=== PATIENT | male | born 1945 | race Caucasian/White ===

== ENCOUNTER 2016-08-02 07:32 | Inpatient (IN) | payer OTHER ==
[~2016-08-02] VITALS: Ht 177.8 cm; Wt 104.3 kg
[~2016-08-02 07:32] MED LIST: METOPROLOL TART50 M1 PO; WARFARIN SODIUM5 M1 PO
--- NOTE | 2016-08-02 07:43 | NUR ---
PT DILLAN FROM HOME. STATES HE BANGED HIS RIGHT LEG WHEN HE GOT OUT OF BED OPENING UP A VERICOSE EVELIO. PT IS ON COUMADIN AND PER EMS VEIN WAS GUSHING BLOOD IN A STEADY STREAM WHEN THEY GOT THERE. PRESSURE DRSG PLACED BY EMS. DRESSINGS SATURATED WITH BLOOD UPON ARRIVAL TO ED. DR MENDEZ AT BEDSIDE
--- NOTE | 2016-08-02 08:00 | NUR ---
DRESSINGS TAKEN DOWN AND VEIN APPEARS TO HAVE STOPPED BLEEDING. CLEAN DRESSING PLACED
--- NOTE | 2016-08-02 08:03 | NUR ---
LABS DRAWN BY SE[facility] BALLARD AND SENT. PT HAD A RUN OF VTACH. DR MENDEZ AWARE AND PRINT OUT IN CHART. EKG COMPLETED BY [facility] BALLRAD
--- NOTE | 2016-08-02 08:05 | NUR ---
PER DR MENDEZ, NOT A RUN OF V-TACH
--- NOTE | 2016-08-02 08:12 | NUR ---
PT BP DROPPED TO 85/65. PT LAYED FLAT AND IV FLUIDS OPENED WIDE. DR MENDEZ AWARE
[2016-08-02 08:13] LABS: ABSOLUTE BASOPHIL COUNT 0 /CUMM (0.0-0.2); ABSOLUTE EOSINOPHIL COUNT 0.1 /CUMM (0.0-0.7); ABSOLUTE GRANULOCYTE CT 2.5 /CUMM (1.4-6.5); ABSOLUTE MONOCYTE COUNT 0.8 /CUMM (0.10-0.60); BASOPHIL % 0.5 % (0.0-2.0); EOSINOPHIL % 2.7 % (0-5); GRANULOCYTE % 45.9 % (42.2-75.2); HEMATOCRIT 32.3 % (42-52); MEAN CORPUSCULAR HGB 31.6 PG (27.0-31.0); MEAN CORPUSCULAR HGB CONC 34.7 G/DL (33.0-37.0); MEAN PLATELET VOLUME 8.4 FL (7.4-10.4); PLATELET COUNT 104 /CUMM (130-400); RBC DISTRIBUTION WIDTH 13.6 % (11.5-14.5); RED BLOOD CELL CT 3.55 /CUMM (4.70-6.10); WHITE BLOOD CELL COUNT 5.4 /CUMM (4.8-10.8)
[2016-08-02 08:20] LABS: PT 36.1 SEC (9.4-12.5)
[2016-08-02] MEDS ORDERED: ASPIRIN81 M4 PO (08:23)
--- NOTE | 2016-08-02 08:23 | NUR ---
PT SON MICKI VALVERDE [phone]. PT'S SON WENT TO DO SOME ERRANDS. WILL BE RETURNING IN A FEW HOURS. CALL WITH ANYTHING PERTINENT
--- NOTE | 2016-08-02 09:01 | ED GENERAL ADULT ---
History of Present Illness General Chief Complaint: General Adult Stated Complaint: BIBA FOR BLEEDING VARICOSE VEIN Source: patient, old records, EMS Exam Limitations: no limitations Vital Signs & Intake/Output Vital Signs & Intake/Output Vital Signs Date Time Temp Pulse Resp B/P Pulse O2 O2 Flow FiO2 Ox Delivery Rate 08/02 910 96.8 86 22 90/52 98 Room Air 08/02 851 97.4 86 20 91/59 100 Nasal 2.0L Cannula 08/02 827 85/61 08/02 811 85/65 08/02 750 Nasal 2.0L Cannula 08/02 739 97.0 81 20 117/64 100 Non 10L ReBreather Allergies Coded Allergies: NO KNOWN ALLERGIES (07/21/11) Reconcile Medications Aspirin (Aspirin*) 81 MG TAB.CHEW 81 MG PO DAILY HEART HEALTH (Reported) Metoprolol Tartrate 50 MG TABLET 1 TAB PO BID HEART (Reported) Warfarin Sodium 5 MG TABLET 0.5 TAB PO 1700 BLOOD THINNER (Reported) Warfarin Sodium 5 MG TABLET 1 TAB PO 1700 BLOOD THINNER (Reported) Core Measure Meds Pre-Hospital coumadin Triage Note: PT BIBA FROM HOME. STATES HE BANGED HIS RIGHT LEG WHEN HE GOT OUT OF BED OPENING UP A VERICOSE EVELIO. PT IS ON COUMADIN AND PER EMS VEIN WAS GUSHING BLOOD IN A STEADY STREAM WHEN THEY GOT THERE. PRESSURE DRSG PLACED BY EMS. DRESSINGS SATURATED WITH BLOOD UPON ARRIVAL TO ED. DR MENDEZ AT BEDSIDE Triage Nurses Notes Reviewed? yes Onset: Just prior to arrival Duration: minute(s):, better, constant Timing: recent history Injury Environment: home Severity: severe Modifying Factors: Improves With: other (pressure). Associated Symptoms: dizziness HPI: Prior to admission patient drank his right lower leg developing bleeding from varicose vein. EMS reports likely 1-2 units of blood loss on the floor. He complains of dizziness. He denies fever chills nausea vomiting diarrhea abdominal pain chest pain shortness of breath headache dysuria rash. Past History Travel History Traveled to [place] past 21 day No Medical History Any Pertinent Medical History? see below for history Neurological: NONE Cardiovascular: AFIB, hypertension Respiratory: NONE Gastrointestinal: HEMMORHOIDS Hepatic: NONE Renal: NONE Musculoskeletal: NONE Psychiatric: NONE Endocrine: NONE Blood Disorders: NONE Cancer(s): NONE Tetanus Vaccine: 07/21/11 Surgical History Surgical History: angioplasty Psychosocial History Who do you live with Spouse What is your primary language Romanian Tobacco Use: Never used ETOH Use: occasional use Illicit Drug Use: denies illicit drug use Family History Hx Contributory? No Review of Systems Review of Systems Constitutional: Reports: see HPI, weakness. EENTM: Reports: no symptoms. Respiratory: Reports: no symptoms. Cardiovascular: Reports: no symptoms. GI: Reports: no symptoms. Genitourinary: Reports: no symptoms. Musculoskeletal: Reports: no symptoms. Skin: Reports: see HPI. Neurological/Psychological: Reports: no symptoms. Hematologic/Endocrine: Reports: no symptoms. Immunologic/Allergic: Reports: no symptoms. All Other Systems: Reviewed and Negative Physical Exam Physical Exam General Appearance: well developed/nourished, alert, awake, anxious, severe distress Head: atraumatic, normal appearance Eyes: Bilateral: normal appearance, PERRL, EOMI. Ears, Nose, Throat: normal pharynx, normal ENT inspection Neck: normal inspection, supple, full range of motion, no midline tenderness Respiratory: normal breath sounds, chest non-tender, no respiratory distress, quiet respiration, lungs clear Cardiovascular: regular rate/rhythm, normal peripheral pulses, norml femoral pulses equa Peripheral Pulses: 4+ carotid (R), 4+ carotid (L) Gastrointestinal: normal bowel sounds, soft, non-tender, no organomegaly Back: normal inspection, normal range of motion Extremities: normal capillary refill, puncture wound likely site of varicose vein disruption medial calf right lower extremity without active bleeding Neurologic/Psych: no motor/sensory deficits, awake, alert, oriented x 3, manager strategy & account II- XII nml as tested Reflexes: 2+: bicep (R), bicep (L). Skin: warm/dry Lymphatic: no anterior cervical tammi Core Measures ACS in differential dx? No CVA/TIA Diagnosis: No Severe Sepsis Present: No Septic Shock Present: No Progress Differential Diagnoses I considered the following diagnoses in my evaluation of the patient: symptomatic anemia varicose vein bleeding Plan of Care: Orders Procedure Date/time Status Regular Diet 08/02 B Active BLOOD PRODUCT PICKUP 08/02 919 Active Patient Data 08/02 856 Active OXYGEN SETUP (GEN) 08/02 848 Active Saline Lock 08/02 848 Active Admit to inpatient 08/02 848 Active Vital Signs 08/02 848 Active Activity/Ambulation 08/02 848 Active Code Status 08/02 848 Active LEUKOCYTE POOR (PACKED CELLS) 08/02 848 Active Add-on Test (ER Only) 08/02 801 Active TROPONIN LEVEL 08/02 799 Complete MAGNESIUM 08/02 799 Complete EKG 08/02 750 Active Intake & Output 08/02 749 Active PROTHROMBIN TIME 08/02 739 Complete COMPREHENSIVE METABOLIC PANEL 08/02 739 Complete CBC WITHOUT DIFFERENTIAL 08/02 739 Complete TYPE & SCREEN (NOT X-MATCH) 08/02 739 Active Laboratory Tests 08/02/16 0800: Anion Gap 5, Estimated GFR > 60, BUN/Creatinine Ratio 14.3, Glucose 143 H, Calcium 7.4 L, Magnesium 1.6, Total Bilirubin 0.8, AST 18, ALT 34, Alkaline Phosphatase 72, Troponin I 0.01, Total Protein 4.2 L, Albumin 2.0 L, Globulin 2.2, Albumin/Globulin Ratio 0.9 L, PT 36.1 H, INR 3.48 H, CBC w Diff NO MAN DIFF REQ, RBC 3.55 L, MCV 91.0, MCH 31.6 H, RDW 13.6, MPV 8.4, Gran % 45.9, Lymphocytes % 36.4, Monocytes % 14.5 H, Eosinophils % 2.7, Basophils % 0.5, Absolute Granulocytes 2.5, Absolute Lymphocytes 2.0, Absolute Monocytes 0.8 H, Absolute Eosinophils 0.1, Absolute Basophils 0, PUBS MCHC 34.7 Initial ED EKG: AFIB, LBBB Prior EKG: unchanged Rhythm Strip: atrial fibrillation Departure Departure Time of Disposition: 857 Disposition: STILL A PATIENT Condition: Stable Clinical Impression Primary Impression: Hypovolemic shock Secondary Impressions: Atrial fibrillation Qualifiers: Atrial fibrillation type: chronic Qualified Code: I48.2 - Chronic atrial fibrillation Bleeding from varicose veins of right lower extremity Symptomatic anemia Referrals: HUI BAKER,JAYLAN Salinas (PCP/Family) Departure Forms: Customer Survey General Discharge Information Admission Note Spoke With: GIANFRANCO CHAN MD Documentation of Exam: Documentation of any treatments & extenuating circumstances including Concerns Regarding Discharge (functional status, medication knowledge or non-compliance, living conditions, etc.) that warrant an admission rather than observation: Serial lab exam vascular evaluation transfusion packed red blood cells medication adjustment continuing care discharge planning Critical Care Note Critical Care Note Critical Care Time: non-applicable
--- NOTE | 2016-08-02 09:10 | NUR ---
PT ADMITTED TO ROOM 215-2
--- NOTE | 2016-08-02 09:50 | NUR ---
HOUSESTAFF AT BEDSIDE.
--- NOTE | 2016-08-02 10:16 | History & Physical ---
ZIA MENDOZA 08/02/16 1006: General Information and HPI Source of Information: patient Exam Limitations: no limitations History of Present Illness: He is 71-year-old man with past medical history of A. fib on Coumadin, hypertension, coronary artery disease status post stent placement, hemorrhoids BIBA from home. Patient states that he banged his right leg with bed when he was trying to get up resulting in opening up of varicose vein. He tried to stop bleeding but could not. He was feeling dizzy and called his son for help. Son was also not able to stop bleeding and he called 911. The son also told patient that he passed out for few minutes but patient doesn't remember. According to patient he has history of bleeding from varicose veins in past about 1-2 times but it was not as bad as it was this morning. He also reports of on and off nosebleed but it stops on its own by pressure. This morning he also had mild nosebleed. Currently patient denies any chest pain or discomfort, palpitations, breathing difficulty, nausea, vomiting, abdominal pain, any change in color of her urine or stool. He is on Coumadin for last 10 years. He checks his INR once a month. Last time it was checked 3 weeks ago and his INR was around 4. He takes Coumadin 5 mg 5 days a week and 2.5 mg 2 days a week. He sees concrete form setter, Dr. Koch 2 times in a year. Last saw him 2-3 months ago. He lives with his 2 sons. 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 He also states that he is on his feet all the day and sometimes he notices swelling of his feet. Last colonoscopy in . Only found hemorrhoids per patient. Allergies/Medications Allergies: Coded Allergies: NO KNOWN ALLERGIES (07/21/11) Home Med list Aspirin (Aspirin*) 81 MG TAB.CHEW 81 MG PO DAILY HEART HEALTH (Reported) Metoprolol Tartrate 50 MG TABLET 1 TAB PO BID HEART (Reported) Warfarin Sodium 5 MG TABLET 0.5 TAB PO 1700 BLOOD THINNER (Reported) Warfarin Sodium 5 MG TABLET 1 TAB PO 1700 BLOOD THINNER (Reported) Compliance With Home Meds: GOOD Past History Travel History Traveled to [place] past 21 day No Medical History Neurological: NONE Cardiovascular: AFIB, hypertension Respiratory: NONE Gastrointestinal: HEMMORHOIDS Hepatic: NONE Renal: NONE Musculoskeletal: NONE Psychiatric: NONE Endocrine: NONE Blood Disorders: NONE Cancer(s): NONE Tetanus Vaccine: 07/21/11 Surgical History Surgical History: cholecystectomy, angioplasty Past Family/Social History Psychosocial History Where do you live? Home Who Do You Live With? child Services at Home: None Primary Language: Icelandic Smoking Status: Never Smoked ETOH Use: denies use (8-10 beers/week), occasional use Illicit Drug Use: denies illicit drug use Functional Ability ADLs Independent: dressing, eating, toileting, bathing. Ambulation: independent IADLs Independent: shopping, housework, finances, food prep, telephone, transportation , medication admin. Employment History Employment Employed Review of Systems Review of Systems Constitutional: Reports: see HPI. Exam & Diagnostic Data Last 24 Hrs of Vital Signs/I&O Vital Signs Date Time Temp Pulse Resp B/P Pulse O2 O2 Flow FiO2 Ox Delivery Rate 08/02 0911 96.8 86 22 90/52 98 Room Air 08/02 0852 97.4 86 20 91/59 100 Nasal 2.0L Cannula 08/02 0828 85/61 08/02 0812 85/65 08/02 0751 Nasal 2.0L Cannula 08/02 0740 97.0 81 20 117/64 100 Non 10L ReBreather Intake & Output 08/02 1600 08/02 0800 08/02 0000 Intake Total 2000 Output Total Balance 2000 Intake, IV 2000 Patient 230 lb Weight Physical Exam General Appearance Alert, Oriented X3, Cooperative, No Acute Distress Skin chronic venous stasis changes bilateral lower extremities with varicose veins HEENT dry mucous membranes, conjunctival pallor Neck Supple Cardiovascular irregularly irregular Lungs Clear to Auscultation, Normal Air Movement Abdomen Normal Bowel Sounds, Soft, No Tenderness Neurological Normal Speech, Strength at 5/5 X4 Ext, Sensation Intact, Cranial Nerves 3-12 NL Extremities trace bilateral lower extremity swelling. Chronic venous stasis changes bilateral lower extremities with varicose veins Last 24 Hrs of Labs/Hemal: Laboratory Tests 08/02/16 0800: Anion Gap 5, Estimated GFR > 60, BUN/Creatinine Ratio 14.3, Glucose 143 H, Calcium 7.4 L, Magnesium 1.6, Total Bilirubin 0.8, AST 18, ALT 34, Alkaline Phosphatase 72, Troponin I 0.01, Total Protein 4.2 L, Albumin 2.0 L, Globulin 2.2, Albumin/Globulin Ratio 0.9 L, PT 36.1 H, INR 3.48 H, CBC w Diff NO MAN DIFF REQ, RBC 3.55 L, MCV 91.0, MCH 31.6 H, RDW 13.6, MPV 8.4, Gran % 45.9, Lymphocytes % 36.4, Monocytes % 14.5 H, Eosinophils % 2.7, Basophils % 0.5, Absolute Granulocytes 2.5, Absolute Lymphocytes 2.0, Absolute Monocytes 0.8 H, Absolute Eosinophils 0.1, Absolute Basophils 0, PUBS MCHC 34.7 Diagnostic Data EKG Results Atrial fibrillation with heart rate 96 Old left bundle branch block Premature atrial complexes QTc [address]-T wave changes Assessment/Plan Assessment: He is 71-year-old man with past medical history of A. chantel on Coumadin, hypertension, coronary artery disease status post stent placement, hemorrhoids BIBA from home. Patient states that he banged his right leg with bed when he was trying to get up resulting in opening up of varicose vein. He and his sons were unable to stop bleeding. He was feeling dizzy and according to son he passed out for a few minutes. In ER he was hypotensive. H&H 11.2/32.3. Baseline hemoglobin is around 15. Normal MCV and RDW. Patient had a run of V. tach in ER. Problem list 1. Symptomatic anemia. Likely due to bleeding from varicose veins. There was mild nosebleed this morning. Bleeding has stopped now. No blood in urine or stool. 2. Supratherapeutic INR. History of A. chantel on Coumadin. INR today is 3.48. Goal INR is between 2-3. 3. Thrombocytopenia. Likely due to bleeding and anemia 4. Hyperglycemia. Glucose 143. Patient did not have his breakfast this morning. No history of diabetes. 5. Hypotension 6. Electrolyte abnormalities. Potassium 3.8 and magnesium 1.6 Plan We will admit patient on general medicine floor. Monitor vitals closely. Patient's blood pressure is on lower side. Will hold metoprolol. Heart rate is in 80s. 2 units of packed RBCs has been ordered in ER. We will check CBC later today. Goal hemoglobin is > 8. Will transfuse if hemoglobin is less than 8. Patient is no more actively bleeding. Monitor platelet count daily. We will also check electrolytes daily. We will try to keep potassium around 4 and magnesium around 2. We'll hold aspirin and Coumadin. Will check INR tomorrow morning. We can consult cardio about restarting Coumadin. We can check thyroid function test. Hemoglobin A1c. Check stool guaiac. Heart healthy heart diet. Local wound care. Alps for DVT prophylaxis. Mild pain pathway. DNR/DNI. As Ranked By This Provider Problem List: 1. Symptomatic anemia Core Measures/Miscellaneous Acute Coronary Syndrome ACS Diagnosis: No Cerebrovascular Accident CVA/TIA Diagnosis: No Congestive Heart Failure CHF Diagnosis: No Venous Thromboembolism VTE Risk Factors: Acute medical illness, Age > 40 VTE Prophylaxis Ordered Inpt: Mechanical (ALPS/TEDS) No Mech VTE prophylaxis d/t: No contraindications No VTE Pharm Prophylaxis d/t: Active bleeding VTE Diagnosis: No VTE Type: NONE VTE Confirmed by (Test): NONE Severe Sepsis Severe Sepsis Present: No Septic Shock Septic Shock Present: No Miscellaneous Documentation Attending Case Discussed With: Dr. Aden Primary Care Physician: JAYLAN KOCH MD Patient sees these Specialists Dr. Jose, concrete form setter Level of Patient Care: General Medicine RADHA BAKER,KALA 08/02/16 1436: Attending MD Review Statement Attending Statement Attending MD Statement: examined this patient, discuss w/resident/PA/SEWER SEPARATION DESIGNER, agreed w/resident/PA/SEWER SEPARATION DESIGNER Attending Assessment/Plan: Patient seen and examined. Plan of care discussed with the medical team and the patient. Available lab work and radiology test reports were reviewed. Please see resident note for detailed history and physical. In summary this is a 71- year-old male who is currently on Coumadin for A. fib and also history of coronary heart disease and hypertension who out or trauma to the right leg had significant bleeding at home today with possible near syncope/syncope. He was noted to be hypotensive with the blood pressure 85/65 in the emergency room. His hematocrit is 32. Unfortunately there is no prior baseline available at this hospital. Assessment and plan * Right leg bleed due to trauma and varicose vein in setting of Coumadin * History of A. fib * Hypotension * Anemia * Varicose vein * Near syncope and lightheadedness Plan * Continue compressive dressing of right leg * VASC surgery note was reviewed * Recheck CBC tomorrow; no need for transfusion unless hematocrit is below 24 * Hold Coumadin and aspirin at this point * Hold Lopressor due to concern with low blood pressure
[2016-08-02 11:29] VITALS: BP 118/62
[2016-08-02 13:10] VITALS: BP 112/66
--- NOTE | 2016-08-02 14:19 | Cons- Vascular Surgery ---
General Information and HPI Consulting Request Date of Consult: 08/02/16 Requested By: GIANFRANCO CHAN MD Reason for Consult: Bleeding right leg varicose vein Source of Information: patient, old records History of Present Illness: 71 year old male with hx. of varicose veins admitted to with significant bleeding episode from R. leg. Pt. has worn compression stocking in the past but nothing recently. He denies rest pain or tissue loss. Allergies/Medications Allergies: Coded Allergies: NO KNOWN ALLERGIES (07/21/11) Home Med List: Aspirin (Aspirin*) 81 MG TAB.CHEW 81 MG PO DAILY HEART HEALTH (Reported) Metoprolol Tartrate 50 MG TABLET 1 TAB PO BID HEART (Reported) Warfarin Sodium 5 MG TABLET 0.5 TAB PO 1700 BLOOD THINNER (Reported) Warfarin Sodium 5 MG TABLET 1 TAB PO 1700 BLOOD THINNER (Reported) Current Medications: Current Medications Sig/Dagoberto Start time Last Medication Dose Route Stop Time Status Admin Acetaminophen 650 MG Q6P PRN 08/02 1045 AC PO Magnesium Oxide 400 MG ONE ONE 08/02 1030 DC 08/02 PO 08/02 1031 1159 Potassium Chloride 40 MEQ ONCE ONE 08/02 1030 DC / PO 08/02 1031 1159 Sodium Chloride 1,000 ML BOLUS ONE 08/02 0830 DC 08/02 IV 08/02 0929 0849 Past History Medical History Blood Transfusion Hx: No Neurological: NONE EENT: NONE Cardiovascular: AFIB, hypertension Respiratory: NONE Gastrointestinal: HEMMORHOIDS Hepatic: NONE Renal: NONE Musculoskeletal: NONE Psychiatric: NONE Endocrine: NONE Blood Disorders: NONE Cancer(s): NONE Surgical History Pertinent Surgical History: cholecystectomy, angioplasty Psychosocial History Where Do You Live? Home Who Do You Live With? child Services at Home: None Primary Language: Slovenian Smoking Status: Never Smoked ETOH Use: denies use (8-10 beers/week), occasional use Illicit Drug Use: denies illicit drug use Functional Ability ADLs Independent: dressing, eating, toileting, bathing. Ambulation: independent IADLs Independent: shopping, housework, finances, food prep, telephone, transportation , medication admin. Employment History Employment: Employed Review of Systems Review of Systems Skin: Reports: change in skin color, dryness. All Other Systems: Reviewed and Negative Exam & Diagnostic Data Vital Signs and I&O Vital Signs Date Time Temp Pulse Resp B/P Pulse O2 O2 Flow FiO2 Ox Delivery Rate 08/02 1310 97.2 88 18 112/66 98 Room Air Room Air 08/02 1129 97.6 95 20 118/62 98 Room Air 08/02 0911 96.8 86 22 90/52 98 Room Air 08/02 0852 97.4 86 20 91/59 100 Nasal 2.0L Cannula 08/02 0828 85/61 08/02 0812 85/65 08/02 0751 Nasal 2.0L Cannula 08/02 0740 97.0 81 20 117/64 100 Non 10L ReBreather Intake & Output 08/02 1600 08/02 0800 08/02 0000 08/01 1600 08/01 0808/01 0000 Intake Total 2000 Output Total Balance 2000 Intake, IV 2000 Patient 230 lb 230 lb Weight Physical Exam General Appearance: well developed/nourished, no apparent distress, alert, awake Extremities: normal inspection, normal capillary refill, swelling (+ edema, + stasis changes) Cranial Nerves: normal hearing, normal speech Assessment/Plan Assessment/Plan Venous insufficiency with bleeding 1.) Needs elevation and compression 2.) Keep area of bleeding dry 3.) Discharge with script for compression stockings 20-30 mmHG to knee 4.) Will need venous reflux US on f/u for discussion of ablative therapy Problem List: 1. Bleeding from varicose veins of right lower extremity Copies To: ROCIO BAKER,GIANFRANCO Consult Acknowledgment - Thank you for your consult request. Attending MD Review Statement Attending Statement Attending MD Statement: examined this patient
--- NOTE | 2016-08-02 14:35 | Admission Certification ---
Admission Certification Certification Statement - As attending physician, I certify that at the time of - admission, based on clinical presentation, severity of - symptoms, need for further diagnostic testing and - therapeutic interventions, and risk of adverse outcomes - without in-hospital treatment, in my clinical assessment, - this patient requires an acute hospital stay for a minimum - of two nights or longer. I have also considered psychsocial - factors such as support system, advanced age, financial - issues, cognitive issues, and failed out-patient treatments, - past re-admission history, safety of patient, and lack of - compliance as applicable. Specific rationale supporting this admission is: Bleeding from right leg due to trauma and dizziness
[2016-08-02 16:12] VITALS: BP 118/66
[2016-08-02 20:50] LABS: ABSOLUTE BASOPHIL COUNT 0 /CUMM (0.0-0.2); ABSOLUTE EOSINOPHIL COUNT 0.1 /CUMM (0.0-0.7); ABSOLUTE GRANULOCYTE CT 7.3 /CUMM (1.4-6.5); ABSOLUTE LYMPH COUNT 1.5 /CUMM (1.2-3.4); ABSOLUTE MONOCYTE COUNT 1.2 /CUMM (0.10-0.60); BASOPHIL % 0.3 % (0.0-2.0); EOSINOPHIL % 0.6 % (0-5); MEAN CORPUSCULAR HGB 30.9 PG (27.0-31.0); MEAN CORPUSCULAR HGB CONC 34.4 G/DL (33.0-37.0); MEAN CORPUSCULAR VOLUME 89.8 FL (80.0-94.0); MEAN PLATELET VOLUME 8.8 FL (7.4-10.4); PLATELET COUNT 114 /CUMM (130-400); RBC DISTRIBUTION WIDTH 13.8 % (11.5-14.5); RED BLOOD CELL CT 4.19 /CUMM (4.70-6.10)
[2016-08-02 20:52] LABS: GRANULOCYTE % 72.2 % (42.2-75.2); HEMATOCRIT 37.7 % (42-52); WHITE BLOOD CELL COUNT 10.1 /CUMM (4.8-10.8)
[2016-08-02 23:18] VITALS: BP 130/80
--- NOTE | 2016-08-03 07:20 | PN- Housestaff ---
CHONG BEDOYA 08/03/16 0719: Subjective Follow-up For: - anemia Subjective: He was comfortable this morning. He did not have any complaints. Vitals were stable overnight. He remained afebrile. Did not have any more bleeding from the varicose vein rupture. Review of Systems Constitutional: Reports: see HPI. Objective Last 24 Hrs of Vital Signs/I&O Vital Signs Date Time Temp Pulse Resp B/P Pulse O2 O2 Flow FiO2 Ox Delivery Rate 08/02 2318 97.6 120 19 130/80 99 08/02 1612 97.4 107 20 118/66 96 08/02 1310 97.2 88 18 112/66 98 Room Air Room Air 08/02 1129 97.6 95 20 118/62 98 Room Air 08/02 0911 96.8 86 22 90/52 98 Room Air 08/02 0852 97.4 86 20 91/59 100 Nasal 2.0L Cannula 08/02 0828 85/61 08/02 0812 85/65 08/02 0751 Nasal 2.0L Cannula 08/02 0740 97.0 81 20 117/64 100 Non 10L ReBreather Intake & Output 08/03 0800 08/03 0000 08/02 1600 Intake Total 1100 1150 Output Total 350 450 Balance 750 700 Intake, Blood 350 350 Product Intake, Oral 750 800 Output, Urine 350 450 Patient 230 lb Weight Physical Exam General Appearance: No Acute Distress Other Physical Findings: General Exam: AAOx3, No acute distress, Skin: No rashes, no breakdown HEENT: PERRLA, EOMI Neck: Supple, No JVD No cervical lymphadenopathy CVS: Reg Rate, Normal S1,S2, No MGR Resp: Normal air entry, no ronchi/rales Abdomen: Soft, No tenderness, Normal Bowel Sounds Neuro: Normal Speech, Strength 5/5 b/l x 4 extremities, Sensation intact, CN III -XII NL, Reflexes 2+ Extremities: No cyanosis, pedal edema, discoloration of b/l lower extremities. Ulcer 1cm x 1cm on the left lower extremity. Current Medications: Current Medications Sig/Dagoberto Start time Last Medication Dose Route Stop Time Status Admin Acetaminophen 650 MG Q6P PRN 08/02 1045 AC PO Magnesium Oxide 400 MG ONE ONE 08/02 1030 DC 08/02 PO 08/02 1031 1159 Potassium Chloride 40 MEQ ONCE ONE 08/02 1030 DC 08/02 PO 08/02 1031 1159 Sodium Chloride 1,000 ML BOLUS ONE 08/02 0830 DC 08/02 IV 08/02 0929 0849 Last 24 Hrs of Lab/Hemal Results Last 24 Hrs of Labs/Mics: Laboratory Tests 08/03/16 0616: Sodium Pending, Potassium Pending, Chloride Pending, Carbon Dioxide Pending, Anion Gap Pending, BUN Pending, Creatinine Pending, BUN/Creatinine Ratio Pending , Magnesium Pending, PT Pending, INR Pending, CBC w Diff Pending, WBC Pending, RBC Pending, Hgb Pending, Hct Pending, MCV Pending, MCH Pending, RDW Pending, Plt Count Pending, MPV Pending, PUBS MCHC Pending 08/02/162004: CBC w Diff NO MAN DIFF REQ, RBC 4.19 L, MCV 89.8, MCH 30.9, RDW 13.8, MPV 8.8, Gran % 72.2, Lymphocytes % 15.3 L, Monocytes % 11.6 H, Eosinophils % 0.6, Basophils % 0.3, Absolute Granulocytes 7.3 H, Absolute Lymphocytes 1.5, Absolute Monocytes 1.2 H, Absolute Eosinophils 0.1, Absolute Basophils 0, PUBS MCHC 34.4 08/02/16 1400: CBC w Diff Cancelled, WBC Cancelled, RBC Cancelled, Hgb Cancelled, Hct Cancelled , MCV Cancelled, MCH Cancelled, RDW Cancelled, Plt Count Cancelled, MPV Cancelled, PUBS MCHC Cancelled 08/02/16 0800: Anion Gap 5, Estimated GFR > 60, BUN/Creatinine Ratio 14.3, Glucose 143 H, Calcium 7.4 L, Magnesium 1.6, Total Bilirubin 0.8, AST 18, ALT 34, Alkaline Phosphatase 72, Troponin I 0.01, Total Protein 4.2 L, Albumin 2.0 L, Globulin 2.2, Albumin/Globulin Ratio 0.9 L, TSH 4.320 H, Free T4 0.85, PT 36.1 H, INR 3.48 H, CBC w Diff NO MAN DIFF REQ, RBC 3.55 L, MCV 91.0, MCH 31.6 H, RDW 13.6, MPV 8.4, Gran % 45.9, Lymphocytes % 36.4, Monocytes % 14.5 H, Eosinophils % 2.7, Basophils % 0.5, Absolute Granulocytes 2.5, Absolute Lymphocytes 2.0, Absolute Monocytes 0.8 H, Absolute Eosinophils 0.1, Absolute Basophils 0, PUBS MCHC 34.7 08/02/16 0740: Hemoglobin A1c 6.1 H Assessment/Plan Assessment: Mr Dutton is a 71 yr old man w/ a PMH of fibrillation (on Coumadin), coronary artery disease status post stents, history of hemorrhoids, varicose veins bilateral lower extremities (history of previous bleeding) is being evaluated for varicose vein rupture that resulted in lightheadedness and dizziness. History of frequent alcohol use more than 3 times per week-beer. At the time of admission, vitals-temperature 97.0, blood pressure 117/64, pulse rate 81, respiratory 20, 98% on 2 L nasal cannula. Laboratory findings indicated WBC 5.4, hemoglobin 11.2 (improved to 12.9 after transfusing PRBC), platelets 104 (thrombocytopenia-reason unclear, likely alcohol related), normal electrolytes-sodium 140, potassium 3.8, normal renal function, BUN 10, serum creatinine 0.7. Calcium 7.4, albumin 2.0(corrected calcium 9.0), low albumin ( likely can be monitored alcohol related), normal liver function AST 18, ALT 34, alkaline phosphatase 72. TSH 4.32 (likely stress), T4 0.85, INR 3.48 (elevated likely from Coumadin). Differential diagnosis: #1 acute blood loss anemia #2 symptomatic anemia Below is the problem list and plan: #1 lightheadedness/dizziness-likely due to acute blood loss. No loss of consciousness. H&H stabilized after transfusing PRBC in the last 24 hours. Patient currently stable. MCV within normal limits (likely due to acute blood loss), no role for iron sulfate at this time. Rupture of varicose veins-no further bleeding was noted. Varicose vein management- Dr. mathews, vascular surgeon was consulted for advice. Ultrasound venous Dopplers-reflux to be done as an outpatient. At this time, compression stockings up to the knee (20-30 millimeters of mercury). Also was found to have guaiac positive stools likely from hemorrhoids or a possible GI bleed. Vitals are stable at this time, and so evaluation as an outpatient. Last colonoscopy was more than 20 years ago. #2 atrial fibrillation-currently on Coumadin. INR 2.49. Dose Coumadin to keep the INR in between 2-3. #3 DVT prophylaxis-Coumadin. Problem List: 1. Atrial fibrillation 2. Bleeding from varicose veins of right lower extremity Pain Ratin Pain Location: none Pain Goal: Pain 4 or less Pain Plan: tylenol prn Tomorrow's Labs & Rationales: No labs necessary. The patient to be discharged. SHAAN CALLE MD 08/03/16 1323: Attending MD Review Statement Attending Statement Attending MD Statement: examined this patient, discuss w/resident/PA/ACCOUNTS PAYABLES CLERK, agreed w/resident/PA/ACCOUNTS PAYABLES CLERK, reviewed EMR data (avail), discussed with nursing, discussed with case mgmt, amended to note Attending Assessment/Plan: Patient seen and examined, overall doing much better. The bleeding from the varicose veins has resolved. Patient was seen by vascular surgeon and they recommended compression stockings as well as outpatient follow-up. Patient's H& H is stable after transfusion. Hemodynamically stable and overall doing much better. He is medically stable for discharge home today.
[2016-08-03 07:29] LABS: PT 25.9 SEC (9.4-12.5)
[2016-08-03 07:56] LABS: ABSOLUTE BASOPHIL COUNT 0 /CUMM (0.0-0.2); ABSOLUTE EOSINOPHIL COUNT 0.2 /CUMM (0.0-0.7); ABSOLUTE GRANULOCYTE CT 4.5 /CUMM (1.4-6.5); ABSOLUTE LYMPH COUNT 1.8 /CUMM (1.2-3.4); ABSOLUTE MONOCYTE COUNT 0.8 /CUMM (0.10-0.60); BASOPHIL % 0.3 % (0.0-2.0); EOSINOPHIL % 2.2 % (0-5); GRANULOCYTE % 61.6 % (42.2-75.2); MEAN CORPUSCULAR HGB 31.3 PG (27.0-31.0); MEAN CORPUSCULAR HGB CONC 34.6 G/DL (33.0-37.0); MEAN CORPUSCULAR VOLUME 90.6 FL (80.0-94.0); MEAN PLATELET VOLUME 8.9 FL (7.4-10.4); PLATELET COUNT 101 /CUMM (130-400); RBC DISTRIBUTION WIDTH 13.6 % (11.5-14.5); RED BLOOD CELL CT 3.98 /CUMM (4.70-6.10); WHITE BLOOD CELL COUNT 7.3 /CUMM (4.8-10.8)
[2016-08-03 08:02] VITALS: BP 126/74
--- NOTE | 2016-08-03 08:50 | Patient Discharge Instructions ---
Discharge Instructions General Discharge Information You were seen/treated for: Acute varicose vein bleeding s/p trauma A.fib on coumadin HTN You had these procedures: PRBC transfusion Watch for these problems: Acute bleeding, dizziness, dark stools. Special Instructions: Please follow up with a primary doctor after discharge within 1 week Please follow up with Dr. Cabral for varicose vein management. Please talk to your PCP about a ultrasound venous doppler w/ reflex Please wear compression stocking ( Stockings, Knee High, Closed Toe: 20-30 mmHg ). Please see a Body Worker within one week of dischage. Please talk to him about a colonoscopy. Diet Continue normal diet: Yes Recommended Diet: Heart Healthy Activity Full Activity/No Limits: Yes Activity Self Limited: No Additional ACTIVITY Info: Increase as tolerated Acute Coronary Syndrome Inclusion Criteria At DC or during hospital stay patient has or had the following: ACS DIAGNOSIS No Discharge Core Measures Meds if any: Prescribed or Continued at Discharge Meds if any: NOT Prescribed or Continued at Discharge Congestive Heart Failure Inclusion Criteria At DC or during hospital stay patient has or had the following: CHF DIAGNOSIS No Discharge Core Measures Meds if any: Prescribed or Continued at Discharge Meds if any: NOT Prescribed or Continued at Discharge Cerebrovascular accident Inclusion Criteria At DC or during hospital stay patient has or had the following: CVA/TIA Diagnosis No Discharge Core Measures Meds if any: Prescribed or Continued at Discharge Meds if any: NOT Prescribed or Continued at Discharge Venous thromboembolism Inclusion Criteria VTE Diagnosis No VTE Type NONE VTE Confirmed by (Test) NONE Discharge Core Measures - Per Current guidelines, there needs to be overlap - treatment for the first 5 days of Warfarin therapy. - If discharged on Warfarin prior to 5 days of - overlap therapy, the patient will need to be - assessed for post discharge needs including - *Post discharge parental anticoagulation - *Warfarin and/or parental anticoagulation education - *Follow up date to check INR post discharge At least 5 days overlap therapy as Inpatient No Meds if any: Prescribed or Continued at Discharge Note: Overlap Therapy is Warfarin and Anticoagulant Meds if any: NOT Prescribed or Continued at Discharge
--- NOTE | 2016-08-03 16:30 | Discharge Summary ---
Visit Information Visit Dates Admission Date: 08/02/16 Discharge Date: 08/03/16 Hospital Course Course Attending Physician: LUC BAKER,SHAAN Primary Care Physician: HUI BAKER,JAYLAN [place] Hospital Course: Mr Dutton is a 71 yr old man w/ a PMH of fibrillation (on Coumadin), coronary artery disease status post stents, history of hemorrhoids, varicose veins bilateral lower extremities (history of previous bleeding) is being evaluated for varicose vein rupture that resulted in lightheadedness and dizziness. History of frequent alcohol use more than 3 times per week-beer. At the time of admission, vitals-temperature 97.0, blood pressure 117/64, pulse rate 81, respiratory 20, 98% on 2 L nasal cannula. Laboratory findings indicated WBC 5.4, hemoglobin 11.2 (improved to 12.9 after transfusing PRBC), platelets 104 (thrombocytopenia-reason unclear, likely alcohol related), normal electrolytes-sodium 140, potassium 3.8, normal renal function, BUN 10, serum creatinine 0.7. Calcium 7.4, albumin 2.0(corrected calcium 9.0), low albumin ( likely can be monitored alcohol related), normal liver function AST 18, ALT 34, alkaline phosphatase 72. TSH 4.32 (likely stress), T4 0.85, INR 3.48 (elevated likely from Coumadin). Differential diagnosis: #1 acute blood loss anemia #2 symptomatic anemia Below is the problem list and plan: #1 lightheadedness/dizziness-likely due to acute blood loss. No loss of consciousness. H&H stabilized after transfusing 2 units of PRBC in the first 24 hours of admission. Patient was stable during the stay in the hospital. MCV within normal limits (likely due to acute blood loss), and thus no role for iron sulfate at this time. For varicose vein management, Dr. Cabral, vascular surgeon was consulted for advice, who adviced on evalutaion of varicose veins by ultrasound venous Dopplers-reflux. Due to inavailability in the hospital, it was to be done as an outpatient. He was discharged home w/ compression stockings up to the knee (20-30 millimeters of mercury). Also was found to have guaiac positive stools likely from hemorrhoids or a possible GI bleed. Since the vitals are stable, and so evaluation planned as an outpatient. #2 atrial fibrillation-He was managed w/ coumadin to keep the INR between 2-2.5. #3 Discharge- Since he did very well, he was discharged w/ a recommendation to follow up with PCP, gastroenterolist and vascular surgeon. #4 thrombocytopenia likely alcohol related. To be evaluated as an outpatient. Allergies: Coded Allergies: NO KNOWN ALLERGIES (07/21/11) Pertinent Lab Results: No imaging was done. Disposition Summary Disposition Principal Diagnosis: Acute blood loss anemia Additional Diagnosis: Symptomatic anemia Discharge Disposition: home or self care Discharge Instructions General Discharge Information Code Status: Do Not Resucitate/Intubat Patient's Diet: Heart healthy diet Patient's Activity: As tolerated Follow-Up Instructions/Appts: Please follow up with a primary doctor after discharge within 1 week Please follow up with Dr. Cabral for varicose vein management. Please talk to your PCP about a ultrasound venous doppler w/ reflex Please wear compression stocking ( Stockings, Knee High, Closed Toe: 20-30 mmHg ). Please see a Cruise Director within one week of dischage. Please talk to him about a colonoscopy. Medications at Discharge Discharge Medications: Continue taking these medications: Metoprolol Tartrate (Metoprolol Tartrate) 50 MG TABLET 1 Tablet ORAL TWICE DAILY Qty = 180 Comments: NOT GIVEN IN HOSPITAL Warfarin Sodium (Warfarin Sodium) 5 MG TABLET 0.5 Tablet ORAL 5 PM Qty = 90 Instructions: Please check your INR regularly to keep in between 2-3. Comments: Mon NOT GIVEN IN HOSPITAL Warfarin Sodium (Warfarin Sodium) 5 MG TABLET 1 Tablet ORAL 5 PM Qty = 90 Instructions: Please check your INR regularly to keep it in between 2-3. Comments: SUN TUE THUR FRI SAT NOT GIVEN IN HOSPITAL Aspirin (Aspirin*) 81 MG TAB.CHEW 81 Milligram ORAL DAILY Comments: NOT GIVEN IN HOSPTIAL Copies To: HUI BAKER,JAYLAN Sesay MD Review Statement Documenting Attending: LUC BAKER,SHAAN
== END 2016-08-03 12:37 | DRG 300 ==
LOC: ENRESERVDT → ENRESERVTM → ERH 07:32 → ENPENDDIS 08:49 → ERHI 08:49 → 2NB 10:21
PROVIDERS: Emergency Medicine; Internal Medicine; ADMIT Internal Medicine
PROC: 30233N1 Transfusion of Nonautologous Red Blood Cells into Peripheral Vein, Percutaneous Approach (ICD-10-PCS; principal; 2016-08-02)
DX: I83.891 Varicose veins of right lower extremity with other complications (principal); D62 Acute posthemorrhagic anemia; D69.6 Thrombocytopenia, unspecified; I11.9 Hypertensive heart disease without heart failure; I48.91 Unspecified atrial fibrillation; Z79.01 Long term (current) use of anticoagulants; I25.10 Atherosclerotic heart disease of native coronary artery without angina pectoris; Z95.5 Presence of coronary angioplasty implant and graft
CPT/HCPCS: 2NBSP; 82436; 86920; 93005; 93010; P9016

== ENCOUNTER 2016-08-23 13:58 | Inpatient (IN) | payer OTHER ==
[~2016-08-23] VITALS: Ht 180.3 cm; Wt 105.7 kg
[~2016-08-23 13:58] MED LIST changes: +ASPIRIN81 M4 PO
--- NOTE | 2016-08-23 14:23 | NUR ---
Informed waiting has been performed.
--- NOTE | 2016-08-23 14:23 | NUR ---
TRIAGE: PT TO ER WITH SON C/C RASH TO BODY, ONSET 3 DAYS AGO ON HIS R LEG. UNKNOWN ALLERGEN.
--- NOTE | 2016-08-23 16:01 | ED SKIN/ALLERGY COMPLAINT ---
History of Present Illness General Chief Complaint: General Adult Stated Complaint: SKIN RASH Source: patient Exam Limitations: no limitations Allergies Coded Allergies: NO KNOWN ALLERGIES (08/23/16) Reconcile Medications Aspirin (Aspirin*) 81 MG TAB.CHEW 81 MG PO DAILY HEART HEALTH (Reported) Metoprolol Tartrate 50 MG TABLET 1 TAB PO DAILY HEART/BP (Reported) Multivit-Min/FA/Lycopen/Lutein (Centrum Silver Men Tablet) 300 MCG-600 MCG-300 MCG TABLET 1 TAB PO DAILY SUPPLEMENT (Reported) Warfarin Sodium 5 MG TABLET 0.5 TAB PO 1700 BLOOD THINNER (Reported) Please check your INR regularly to keep in between 2-3. Warfarin Sodium 5 MG TABLET 1 TAB PO 1700 BLOOD THINNER (Reported) Please check your INR regularly to keep it in between 2-3. Triage Note: TRIAGE: PT TO ER WITH SON C/C RASH TO BODY, ONSET 3 DAYS AGO ON HIS R LEG. UNKNOWN ALLERGEN. Triage Nurses Notes Reviewed? yes HPI: Patient is a 71 year old male presents complaining of rash to bilateral lower extremity is. Patient reports that he has chronic redness to his right lower extremity with a chronic wound pretibially. Over the past couple of days redness has worsened. Over the past 6-12 hours patient has had significant traveling up his legs of patches of redness. Patient reports that the skin to his right leg has become more sensitive today. Patient takes Coumadin, has not had his level checked over the past couple of weeks. Patient reports positive dyspnea which he attributes to anxiety. Patient took ibuprofen and aspirin yesterday for pain to his lower extremities. Patient denies fevers, chills, recent trauma, recent medication changes. (WHITLEY CHENG) Vital Signs & Intake/Output Vital Signs & Intake/Output Vital Signs Date Time Temp Pulse Resp B/P Pulse O2 O2 Flow FiO2 Ox Delivery Rate 08/23 1939 99.3 97 20 149/86 100 Room Air 08/23 1632 97.5 85 22 145/86 99 Room Air 08/23 1420 97.7 90 20 121/75 97 Room Air Past History Travel History Traveled to [place] past 21 day No Medical History Any Pertinent Medical History? 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 No (WHITLEY CHENG) Review of Systems Review of Systems Constitutional: Denies: chills, fever. EENTM: Reports: no symptoms. Respiratory: Reports: cough (chronic), short of breath. Cardiovascular: Denies: chest pain. GI: Denies: abdominal pain. Genitourinary: Reports: no symptoms. Musculoskeletal: Reports: no symptoms. Skin: Reports: see HPI. Neurological/Psychological: Reports: no symptoms. Hematologic/Endocrine: Reports: bruising. Denies: bleeding. Immunologic/Allergic: Reports: no symptoms. (WHITLEY CHENG) Physical Exam Physical Exam General Appearance: well developed/nourished, alert, awake, obese Head: atraumatic, normal appearance Eyes: Bilateral: normal appearance, PERRL, EOMI. Ears, Nose, Throat: normal pharynx, normal ENT inspection, hearing grossly normal Neck: normal inspection, supple, full range of motion Respiratory: no respiratory distress, mild bibasilar expiratory wheezing Cardiovascular: regular rate/rhythm Gastrointestinal: soft, non-tender Back: normal inspection, normal range of motion Extremities: venous stasis changes from right ankle to right knee. 4-5 cm superficial skin ulceration to the right mid pretibial area. Black string coming out of wound, approximately 6 inches of material, diffuse petechial and purpuric rash to all 4 extremities Neurologic/Psych: awake, alert, normal gait, normal mood/affect Skin: diffuse petechial and purpuric rash Lymphatic: no anterior cervical tammi (WHITLEY CHENG) Progress Differential Diagnosis: abscess/cellulitis, allergic reaction, anaphylaxis, contact dermatitis, erythema multiforme, Wiley-Augie syndrome, coagulopathy, thrombocytopenia(ITP/TTP), sepsis (WHITLEY CHENG) Plan of Care: Orders Procedure Date/time Status Heart Healthy Diet 08/23 D Active Admit to inpatient 08/23 1953 Active Patient Data 08/23 1846 Active URINALYSIS 08/23 1749 Complete PARTIAL THROMBOPLASTIN TIME 08/23 1633 Complete PROTHROMBIN TIME 08/23 1633 Complete COMPREHENSIVE METABOLIC PANEL 08/23 1633 Complete CBC WITHOUT DIFFERENTIAL 08/23 163 Complete Laboratory Tests 08/23/16 1824: Urinalysis MOD H, Urine Color YEL, Urine Clarity HAZY H, Urine pH 5.5, Ur Specific [place] >= 1.030, Urine Protein 100 H, Urine Ketones TRACE H, Urine Nitrite NEG, Urine Bilirubin NEG@ICTO, Urine Urobilinogen 0.2, Ur Leukocyte Esterase TRACE H, Ur Microscopic SEDIMENT EXAMINED, Urine RBC 15-25 H, Urine WBC 5-10 H, Urine Mucus FEW, Urine Hemoglobin LARGE H, Urine Glucose NEG 08/23/16 1651: Anion Gap 11, Estimated GFR 40 L, BUN/Creatinine Ratio 15.9, Glucose 102 H, Calcium 8.7, Total Bilirubin 1.2, AST 27, ALT 24, Alkaline Phosphatase 88, Total Protein 6.7, Albumin 3.2 L, Globulin 3.5, Albumin/Globulin Ratio 0.9 L, PT 25.0 H, INR 2.40 H, APTT 34, CBC w Diff NO MAN DIFF REQ, RBC 4.22 L, MCV 90.0 , MCH 29.8, RDW 13.7, MPV 8.1, Gran % 72.3, Lymphocytes % 12.9 L, Monocytes % 12.6 H, Eosinophils % 1.0, Basophils % 1.2, Absolute Granulocytes 6.7 H, Absolute Lymphocytes 1.2, Absolute Monocytes 1.2 H, Absolute Eosinophils 0.1, Absolute Basophils 0.1, PUBS MCHC 33.1 Results of labs and chest x-ray discussed with patient. Discussed with and seen by Dr. Das. (WHITLEY CHENG) Departure Departure Disposition: STILL A PATIENT Condition: Stable Clinical Impression Primary Impression: Acute kidney injury Secondary Impressions: Petechial rash Referrals: UNKNOWN (PCP/Family) Departure Forms: Customer Survey General Discharge Information Admission Note Spoke With: KALEIGH FINCH MD Documentation of Exam: Documentation of any treatments & extenuating circumstances including Concerns Regarding Discharge (functional status, medication knowledge or non-compliance, living conditions, etc.) that warrant an admission rather than observation: IV fluids, consider renal consultation. Petechial/purpuric rash spreading significantly over just a 6-8 hour period, will require further monitoring, consider infectious disease or hematology consultation, consider dermatology consultation (MARGARITA HAMM,WHITLEY) PA/NET APPLICATIONS DEVELOPER Co-Sign Statement Statement: ED Attending supervision documentation- [x] I saw and evaluated the patient. I have also reviewed all the pertinent lab results and diagnostic results. I agree with the findings and the plan of care as documented in the PA's/NET APPLICATIONS DEVELOPER's documentation. [] I have reviewed the ED Record and agree with the PA's/NET APPLICATIONS DEVELOPER's documentation. [] Additions or exceptions (if any) to the PAs/NET APPLICATIONS DEVELOPER's note and plan are summarized below: [] (SHARAD BAKER,DOUGLAS Soto)
--- NOTE | 2016-08-23 16:32 | NUR ---
PT SEEN BY NORIS AVILA IN ROOM 20
[2016-08-23] MEDS ORDERED: CENTRUM SILVER1 EAC4 PO (16:42)
--- NOTE | 2016-08-23 16:58 | NUR ---
BLOOD SENT (BLUE/LAV FULL, PARTIAL PINK AND SST--DIFF STICK). PT TO RADIOLOGY NOW.
[2016-08-23 17:00] LABS: ABSOLUTE BASOPHIL COUNT 0.1 /CUMM (0.0-0.2); ABSOLUTE EOSINOPHIL COUNT 0.1 /CUMM (0.0-0.7); ABSOLUTE GRANULOCYTE CT 6.7 /CUMM (1.4-6.5); ABSOLUTE LYMPH COUNT 1.2 /CUMM (1.2-3.4); ABSOLUTE MONOCYTE COUNT 1.2 /CUMM (0.10-0.60); BASOPHIL % 1.2 % (0.0-2.0); GRANULOCYTE % 72.3 % (42.2-75.2); MEAN CORPUSCULAR HGB 29.8 PG (27.0-31.0); MEAN CORPUSCULAR HGB CONC 33.1 G/DL (33.0-37.0); MEAN PLATELET VOLUME 8.1 FL (7.4-10.4); PLATELET COUNT 150 /CUMM (130-400); RBC DISTRIBUTION WIDTH 13.7 % (11.5-14.5); RED BLOOD CELL CT 4.22 /CUMM (4.70-6.10); WHITE BLOOD CELL COUNT 9.3 /CUMM (4.8-10.8)
--- NOTE | 2016-08-23 17:00 | NUR ---
lab called and needs a redraw of the pink top tube, due to insufficiant amount.
[2016-08-23 17:08] LABS: PTT 34 SEC (25-37)
--- NOTE | 2016-08-23 17:27 | NUR ---
PT TO RADIOLOGY BY DAVID
--- NOTE | 2016-08-23 17:27 | NUR ---
TYPE AND SCREEN CANCELED PER NORIS AVILA, PT DOES NOT NEED BLOOD PRODUCTS
--- NOTE | 2016-08-23 17:56 | RADIOLOGY REPORT ---
EXAMINATION: XR CHEST CLINICAL INFORMATION: Dyspnea. Mild cough. COMPARISON: 04/10/2009 TECHNIQUE: 2 views of the chest were obtained. FINDINGS: The lungs are well expanded with elevation of the right hemidiaphragm. This is similar to prior. No consolidation, edema, or effusion. No pneumothorax. The cardiomediastinal silhouette is unchanged. Mild degenerative changes of the spine. IMPRESSION: No acute pulmonary findings. Chronic elevation of the right hemidiaphragm.
--- NOTE | 2016-08-23 18:28 | NUR ---
URINE TRIO SENT TO LAB. IVF INFUSING. PT AWARE OF PLAN FOR ADMISSION. REQUESTING MILK AND JUICE, DECLINES FOOD AT THIS TIME. NO OTHER COMPLAINTS. XEROFORM/BACITRACIN/KERLEX APPLIED TO RIGHT LEG WOUND.
--- NOTE | 2016-08-23 19:58 | NUR ---
DR AVELAR AT BEDSIDE, DRESSING TO RIGHT LEG CHANGED BY .
--- NOTE | 2016-08-23 20:45 | NUR ---
PCXR AT BEDSIDE
--- NOTE | 2016-08-23 21:03 | RADIOLOGY REPORT ---
EXAMINATION: XR TIBIA AND FIBULA, RIGHT CLINICAL INFORMATION: Right lower extremity wound. Redness. COMPARISON: None TECHNIQUE: AP and lateral views of the right tibia and fibula were obtained. FINDINGS: No bone destruction or periosteal reaction. No radiographic evidence of osteomyelitis. No air in the soft tissue. Degenerative change of the knee with joint space narrowing of the medial femoral tibial joint and small marginal spur of the bone. IMPRESSION: No radiographic evidence of osteomyelitis.
--- NOTE | 2016-08-23 22:29 | NUR ---
PT RESTING COMFORTABLY ON STRETCHER, NO COMPLAINTS, WATER AND JUICE PROVIDED, STILL REFUSING MEAL. AWARE AWAITING BED ASSIGNMENT.
--- NOTE | 2016-08-23 22:43 | NUR ---
REPORT CALLED TO [facility]
--- NOTE | 2016-08-23 22:45 | NUR ---
PT HAS BED #[id number]
--- NOTE | 2016-08-23 22:53 | History & Physical ---
MANSI BAKER,[facility] 08/23/16 2252: General Information and HPI MD Statement: I have seen and personally examined AMELIA VALVERDE and documented this H&P. The patient is a 71 year old M who presented with a patient stated chief complaint of lower extremity and erythema. Source of Information: patient Exam Limitations: no limitations History of Present Illness: This ia a 71-year-old pleasant gentleman with past medical history of hypertension, CAD status post stent placement, anemia, varicose veins, and a recent one-day admission for RLE venous insufficiency with bleeding requiring 2 units of PRBC, presents to [facility] ED for evaluation of right lower extremity pain. At baseline patient has chronic bilateral venous insufficiency with the right lower extremity prone to ulceration/wound. For the past 4 days, patient is reporting increased lower extremity pain on his right side with some erythema. At the ED, it was noted that patient had a rapid progression of his rash from his lower extremity to all over his body with the exception of face and chest area. Patient does report a 3 day old history of recent gastroenteritis, sore throat and darken urine (cola?), and recently using furosemide for 1-2 days (given to him by his son). He does deny any recent history of fevers, chills, nausea, vomiting, trying a new diet or soap, physical exposure to chemical irritants, joint or muscle pain. 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 child Services at Home: None Primary Language: Moroccan ETOH Use: occasional use Illicit Drug Use: denies illicit drug use Functional Ability ADLs Independent: dressing, eating, toileting, bathing. Ambulation: independent IADLs Independent: shopping, housework, finances, food prep, telephone, transportation , medication admin. Review of Systems Review of Systems Constitutional: Denies: diaphoresis, fever, malaise. EENTM: Denies: double vision, visual changes, eye pain. Cardiovascular: Denies: chest pain, edema, orthopena, palpitations, peripheral edema. Respiratory: Denies: orthopnea, short of breath, sputum production, stridor, wheezing. GI: Denies: bloating, constipation, melena. Genitourinary: Denies: discharge, frequency, hematuria. Musculoskeletal: Denies: back pain, joint pain, joint swelling, muscle pain. Skin: Reports: erythema. Neurological/Psychological: Denies: depressed, dementia, headache, numbness, paresthesia. Hematologic/Endocrine: Reports: bruising. Immunologic/Allergic: Reports: no symptoms. Exam & Diagnostic Data Last 24 Hrs of Vital Signs/I&O Vital Signs Date Time Temp Pulse Resp B/P Pulse O2 O2 Flow FiO2 Ox Delivery Rate 08/24 0147 99.3 102 20 120/80 96 Room Air 08/23 2314 99.0 92 18 150/90 97 Room Air 08/23 2230 98 08/23 2230 99.6 100 18 140/92 98 Room Air 08/23 1939 99.3 97 20 149/86 100 Room Air 08/23 1632 97.5 85 22 145/86 99 Room Air 08/23 1420 97.7 90 20 121/75 97 Room Air Intake & Output 08/24 0800 08/24 0000 08/23 1600 Intake Total Output Total 150 250 Balance -150 -250 Output, Urine 150 250 Patient 90.718 kg 104.326 kg Weight Physical Exam General Appearance Alert, Oriented X3, Cooperative Skin Papula mixed with petechial rash noted diffusely throught the body with the exception of the chest and face. . Lower extremity discoloration consistent with venous changes noted bilaterally. Right lower extremity wound covered with intact dressing. HEENT Atraumatic, PERRLA, EOMI, no ulceration, or petechial hemorrhages noted. Neck Supple, No JVD, No thryomegaly, +2 Carotid Pulse wo Bruit Lymphatic Cervical nl Cardiovascular Regular Rate, Normal S1, Normal S2, No Murmurs, Gallops, Rubs Lungs Clear to Auscultation, Normal Air Movement Abdomen Normal Bowel Sounds, Soft, No Tenderness Neurological Normal Speech, Strength at 5/5 X4 Ext, Normal Tone, Sensation Intact Extremities No Clubbing, No Cyanosis Vascular Normal Pulses Assessment/Plan Assessment: This is 71-year-old pleasant gentleman with past medical history of hypertension , A. fib and Coumadin, CAD, varicose veins with a history of bleed, reasons for evaluation of right lower extremity pain and rapidly progressive diffuse papular /petechial rash. Impression and plan #Diffuse rash The rapid progression of patient's rash from lower extremity to the entire body with prominent papula and petechial sensation is concerning. Patient rash is not pruritic. Most likely vasculitis? Acute kidney injury with rash, IgA nephropathy vs interstitial nephritis in differential. Plan * Admit to general medicine floor * Will carefully monitor for progression of rash * Will obtain CBC in the morning * Will obtain repeat fibrinogen level, FDP, d-dimer, and may, ANCA, C3 and C4 complement levels. * Obtain skin punch biopsy in the morning. * We'll obtain a hematology consult tomorrow morning #Acute kidney injury Patient is presenting with a creatinine level I.7, with his baseline being 0.6. Was likely etiology is prerenal from decreased fluid intake. Plan Normal saline hydration and 125 m/hr per hour for 2L #Alcohol abuse Patient reports about 6-12 cans of beer per week, with last drink being Monday night. Plan CIWA protocol #Venous insufficiency Were low extremity small also in the pretibial area with pain and swelling. Patient was scheduled for a procedure on August 31 with vascular. Plan Will continue dry dressing Will consider vascular consult #History of A. fib on Coumadin therapy Will check INR tomorrow morning and dose according As Ranked By This Provider Problem List: 1. Petechial rash 2. Acute kidney injury Core Measures/Miscellaneous Acute Coronary Syndrome ACS Diagnosis: No Cerebrovascular Accident CVA/TIA Diagnosis: No Congestive Heart Failure CHF Diagnosis: No Venous Thromboembolism VTE Risk Factors: Age > 40 VTE Prophylaxis Ordered Inpt: [facility]- [facility] prophylaxis d/t: Vascular insuff of limb No VTE Pharm Prophylaxis d/t: No contraindications VTE Diagnosis: No VTE Type: NONE VTE Confirmed by (Test): NONE Severe Sepsis Severe Sepsis Present: No Septic Shock Septic Shock Present: No Miscellaneous Documentation Attending Case Discussed With: KALEIGH FINCH MD Primary Care Physician: UNKNOWN Patient sees these Specialists vascular Level of Patient Care: General Medicine Consults Needed: Consulting Specialty: Hematology/Oncology REJI,SHANZA 08/24/16 0326: General Information and HPI Allergies/Medications Home Med list Aspirin (Aspirin*) 81 MG TAB.CHEW 81 MG PO DAILY HEART HEALTH (Reported) Metoprolol Tartrate 50 MG TABLET 1 TAB PO DAILY AFIB (Reported) Multivit-Min/FA/Lycopen/Lutein (Centrum Silver Men Tablet) 300 MCG-600 MCG-300 MCG TABLET 1 TAB PO DAILY SUPPLEMENT (Reported) Warfarin Sodium 5 MG TABLET 0.5 TAB PO 1700 BLOOD THINNER (Reported) Please check your INR regularly to keep in between 2-3. Warfarin Sodium 5 MG TABLET 1 TAB PO 1700 BLOOD THINNER (Reported) Please check your INR regularly to keep it in between 2-3. Resident Review Statement Resident Statement: discussed with internal grinder tender Other Findings: HPI as above Assessment and plan His 71-year-old man with past medical history of A. fib on Coumadin, hypertension, coronary artery disease status post stents, varicose veins and anemia presented to ER with chief complaint of right lower extremity pain, sweating and diffuse body rash. Active Problem list 1. Right lower extremity swelling, pain, small superficial ulcer in pretibial area most likely secondary to venous insufficiency. Patient is due for vascular procedure by Dr. Cabral on August 31 2. Diffuse reddish petechial and purpuric rash sparing chest, back, face, palms and soles. A history of recent viral gastroenteritis in 2 days history of sore throat that is resolved now. Patient is acute kidney injury. Denies fever, chills, arthralgia, myalgia, generalized weakness or fatigue. His rash is not itchy or painful. ? Rheumatological versus autoimmune process going on. Only new medication was Lasix that he took 3 days ago. History of use of new detergent. No history of tick or bug bite. 3. Acute kidney injury most likely secondary to dehydration. Underlying rheumatological process could be a possibility 4. History of alcohol abuse. Last drink was 4 days ago 5. History of A. fib on Coumadin. INR 2.40 Plan We will admit patient to general medicine floor. Vitals every shift. Watch for progression of rash. We will continue all his medications. Will put patient on CIWA protocol. IV Ativan as needed per CIWA. We will call rheumatology consult. Will repeat CBC, BMP and INR in a.m. We will also check fibrinogen level, fibrin degradation product, d-dimer, hepatitis panel, HIV, MARTIN, ANCA, C3- C4 complement levels. Skin punch biopsy in a.m. Hematology consult given elevated fibrinogen activity, fibrin deterioration products and d-dimer. Avoid Nephrotoxins. Doppler venous ultrasound of right lower extremity to rule out DVT. Mild pain pathway. Regular diet. DVT prophylaxis. Patient is on Coumadin. Dose Coumadin based on INR in a.m. Patient is DNR/DNI. KALEIGH FINCH 08/24/16 0519: Attending MD Review Statement Attending Statement Attending MD Statement: examined this patient, discuss w/resident/PA/SPAR CAP BEVELER, agreed w/resident/PA/SPAR CAP BEVELER, discussed with family, reviewed EMR data (avail), reviewed images, amended to note Attending Assessment/Plan: CC: Right leg pain PMH: A. fib, HTN, CAD S/P stenting, varicose vein with recent rupture Patient presented ER complaining of rash to bilateral lower extremities and pain at his right lower extremity at the site of recently bled varicose veins. Patient reports that he has chronic redness to his right lower extremity with a chronic wound pretibially. Patient was discharged on August 03 and was admitted for presyncopal episode after severe blood loss from the varicose veins. He was transfused 2 units PRBC at that time. Eventually supposed to follow up outpatient vascular surgery. But patient started to notice a rash on his lower extremities which is chronic to him but was worsening. The course of day yesterday patient started to notice a red spots on his thighs, abdomen, hands. Patient also mentions some dark colored urine since one day. Denies fever, chills, chest pain, shortness of breath, abdominal pain, diarrhea, constipation, upper respiratory symptoms, urinary frequency, urinary burning. He had some stomach upset 1 week back but it resolved. His right lower extremity was getting more swollen so he took his sons Lasix 2 doses over last 4 days. He denies any recent antibiotic use, any recent heparin use. 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 Patient took ibuprofen and aspirin yesterday for pain to his lower extremities. Patient also complains of pain at the site of previous varicose vein bleeding has small non-healing ulcer and that area. Vitals: T Max 99.6, pulse, RRR, blood pressure, O2 saturation in acceptable range. On examination a O 3, anxious, no acute distress, no JVD, no lymphadenopathy, mucosa dry, diffuse petechial and purpura rash on anterior thighs, anterior abdomen, medial aspect of arms, pubis, chest back face are spared. The rash is nonblanching. He also has chronic nonhealing ulcer on the medial aspect of right lower extremity with necrotic base, no no evidence of infection. CVS: S1-S2, irregular. RS: Clear to auscultate bilaterally, no wheezing, no rhonchi. Abdomen: Soft, NT, ND, bowel sounds present. No CVA tenderness. No focal neurological deficits. Peripheral perfusion and pulses normal. Labs: WBC 9.3, hemoglobin 12.6, platelet 150, band 2,, PT 25, INR 2.4, APTT 34, bicarbonate 20, BUN 27, creatinine 1.7, UA shows leukocyte esterase, RBC 25, hemoglobin large CXR no acute cardiopulmonary process X-ray right lower extremity no radiologic evidence of osteomyelitis, no free air A and P #1 petechial and purpura rash: Progressively worsened over yesterday, no active bleeding, has acute kidney injury with blood in urine, urine almost looked cola coloured. Broad differential for this presentation, suspected vasculitis, rule out DIC, obtain fibrin degradation products, d-dimer, peripheral smear, hepatitis B and C panel, HIV, MARTIN, RA, ANCA, complement levels, urine microscopy. Consult with rheumatology and oncology in a.m. #2 acute kidney injury: Continue gentle hydration for now to rule out any prerenal acidemia with respect to recently taken Lasix, repeat BMP in a.m., before worsening creatinine then patient may benefit from nephro consult, vasculitis cannot be excluded in the setting of purpuric rash. #3 chronic nonhealing ulcer on medial aspect of the right lower extremity secondary to varicose veins, also has some necrotic base but no pus, no evidence of fluid collection or abscess, there are 2 bands but no significant leukocytosis, no fever. In setting of purpura and CHARLES would hold off antibiotics for now, wound consult in a.m. #4 continue his medications metoprolol and warfarin for A. fib and hypertension #5 alcoholism: Watch for DTs, when necessary Ativan according to CIWA protocol.
[2016-08-23 23:14] VITALS: BP 150/90
--- NOTE | 2016-08-23 23:19 | NUR ---
ARRIVED TO FLOOR VIA STRETCHER FROM ED. A & O X 3. AMBULATED FROM STRETCHER TO BED. PETECHIAL RASH NOTED OVER ENTIRE BODY WITH HEAVIER AREAS TO HIS LEFT FOREARM, LEFT FLANK, AND BILATERAL LOWER EXTREMIITES. PT STATES RASH GOT PROGRESSIVELY WORSE THIS AM. HX OF VEIN RUPTURE TO RLE, SEEN OUT PT BY DR. NAVA AND SCHEDULED FOR UNKNOWN SURGERY IN AUGUST PER PT. RLE IS SWOLLEN AND PURPLE IN COLOR. PER ED NURSE, BEDSIDE I&D COMPLETED BY . DRY DSG IN PLACE WITHOUT DRAINAGE NOTED. ORIENTED TO CALL SYSTEM. VSS. DENIES PAIN AT THIS TIME. PT STATES HE TAKES COUMADIN DAILY BUT DID NOT TAKE TODAY.
[2016-08-24] VITALS (8 sets, daily range): BP systolic 120–150; BP diastolic 60–90
--- NOTE | 2016-08-24 05:21 | Admission Certification ---
Admission Certification Certification Statement - As attending physician, I certify that at the time of - admission, based on clinical presentation, severity of - symptoms, need for further diagnostic testing and - therapeutic interventions, and risk of adverse outcomes - without in-hospital treatment, in my clinical assessment, - this patient requires an acute hospital stay for a minimum - of two nights or longer. I have also considered psychsocial - factors such as support system, advanced age, financial - issues, cognitive issues, and failed out-patient treatments, - past re-admission history, safety of patient, and lack of - compliance as applicable. Specific rationale supporting this admission is: Purpura and petechial rash, acute kidney injury
--- NOTE | 2016-08-24 07:25 | Cons- Hematology ---
General Information and HPI Consulting Request Date of Consult: 08/24/16 Requested By: KALEIGH FINCH MD History of Present Illness: 71-year-old man admitted to the hospital with rapid progression of dermatitis. Patient denies fever or chills. Patient denies increased bleeding or bruising. Patient denies focal neurologic abnormalities. Patient has not started new medication. Allergies/Medications Allergies: Coded Allergies: NO KNOWN ALLERGIES (08/23/16) Home Med List: Aspirin (Aspirin*) 81 MG TAB.CHEW 81 MG PO DAILY HEART HEALTH (Reported) Metoprolol Tartrate 50 MG TABLET 1 TAB PO DAILY AFIB (Reported) Multivit-Min/FA/Lycopen/Lutein (Centrum Silver Men Tablet) 300 MCG-600 MCG-300 MCG TABLET 1 TAB PO DAILY SUPPLEMENT (Reported) Warfarin Sodium 5 MG TABLET 0.5 TAB PO 1700 BLOOD THINNER (Reported) Please check your INR regularly to keep in between 2-3. Warfarin Sodium 5 MG TABLET 1 TAB PO 1700 BLOOD THINNER (Reported) Please check your INR regularly to keep it in between 2-3. Current Medications: Current Medications Sig/Dagoberto Start time Last Medication Dose Route Stop Time Status Admin Acetaminophen 650 MG Q6P PRN 08/23 2345 AC PO Aspirin 81 MG DAILY 08/24 1000 AC PO Folic Acid 1 MG DAILY 08/24 1000 AC PO Lorazepam 0 Q1P PRN 08/24 2345 AC IV Metoprolol Tartrate 50 MG DAILY 08/24 1000 AC PO Multivitamins 1 TAB DAILY 08/24 1000 AC PO Sodium Chloride 1,000 ML ONCE ONE 08/23 1745 DC 08/23 IV 08/24 0144 1827 Thiamine HCl 100 MG DAILY 08/24 1000 AC PO Review of Systems Review of Systems: Patient denies headaches or dizziness. Patient denies shortness of breath cough chest pain or hemoptysis. Patient denies nausea vomiting abdominal pain or bleeding. Patient denies dysuria or hematuria. . 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 child Services at Home: None Primary Language: Central [place] Smoking Status: Never Smoked ETOH Use: occasional use Illicit Drug Use: denies illicit drug use Functional Ability ADLs Independent: dressing, eating, toileting, bathing. Ambulation: independent IADLs Independent: shopping, housework, finances, food prep, telephone, transportation , medication admin. Exam & Diagnostic Data Vital Signs and I&O Vital Signs Date Time Temp Pulse Resp B/P Pulse O2 O2 Flow FiO2 Ox Delivery Rate 08/24 0655 99.0 100 20 146/80 95 Room Air 08/24 0147 99.3 102 20 120/80 96 Room Air 08/23 2314 99.0 92 18 150/90 97 Room Air 08/23 2230 98 08/23 2230 99.6 100 18 140/92 98 Room Air 08/23 1939 99.3 97 20 149/86 100 Room Air 08/23 1632 97.5 85 22 145/86 99 Room Air 08/23 1420 97.7 90 20 121/75 97 Room Air Intake & Output 08/24 0800 08/24 0000 08/23 1600 Intake Total Output Total 150 250 Balance -150 -250 Output, Urine 150 250 Patient 200 lb 230 lb Weight Gen.: in NAD ENT: Sclera anicteric Chest: Normal respiratory effort, clear breath sounds Cor: RRR, no extra sounds Abdomen: Soft, bowel sounds present, no tenderness, no rebound Extremities: Without clubbing, cyanosis, or edema Neurology: Alert and oriented 3, no gross deficit Skin: Dramatic dermatitis, macular/papular with questionable neurologic component Last 48 Hours of Lab Results: Laboratory Tests 08/24 08/24 08/24 0640 0640 0130 Chemistry Sodium Pending Potassium Pending Chloride Pending Carbon Dioxide Pending Anion Gap Pending BUN Pending Creatinine Pending BUN/Creatinine Ratio Pending Coagulation Fibrinogen Activity (200 - 393 MG/DL) 407 H Fibrin Degrad Products (< 10 ug/ml) >10 but < 40 ug/ml H D-Dimer (70 - 232 ng/ml) 1789 H Hematology CBC w Diff Pending WBC Pending RBC Pending Hgb Pending Hct Pending MCV Pending MCH Pending RDW Pending Plt Count Pending MPV Pending PUBS MCHC Pending Immunology MARTIN Titer Pending Anti-Nuclear Antibody Pending ANCA Pending Complement C3 Pending Complement C4 Pending Serology Hepatitis A IgM Ab Pending Hep Bs Antigen Pending Hep B Core IgM Ab Conf Pending Hepatitis C Antibody Pending HIV 1&2 Ab Western Blot Pending 08/23 08/23 0591 4521 Chemistry Sodium (137 - 145 mmol/L) 136 L Potassium (3.5 - 5.1 mmol/L) 4.7 Chloride (98 - 107 mmol/L) 105 Carbon Dioxide (22 - 30 mmol/L) 20 L Anion Gap (5 - 16) 11 BUN (9 - 20 mg/dL) 27 H Creatinine (0.7 - 1.2 mg/dL) 1.7 H Estimated GFR (>60 ml/min) 40 L BUN/Creatinine Ratio (7 - 25 %) 15.9 Glucose (65 - 99 mg/dL) 102 H Calcium (8.4 - 10.2 mg/dL) 8.7 Total Bilirubin (0.2 - 1.3 mg/dL) 1.2 AST (17 - 59 U/L) 27 ALT (21 - 72 U/L) 24 Alkaline Phosphatase (< 127 U/L) 88 Total Protein (6.3 - 8.2 g/dL) 6.7 Albumin (3.5 - 5.0 g/dL) 3.2 L Globulin (1.9 - 4.2 gm/dL) 3.5 Albumin/Globulin Ratio (1.1 - 2.2 %) 0.9 L Coagulation PT (9.4 - 12.5 SEC) 25.0 H INR (0.90 - 1.17) 2.40 H APTT (25 - 37 SEC) 34 Hematology CBC w Diff NO MAN DIFF REQ WBC (4.8 - 10.8 /CUMM) 9.3 RBC (4.70 - 6.10 /CUMM) 4.22 L Hgb (14.0 - 18.0 G/DL) 12.6 L Hct (42 - 52 %) 38.0 L MCV (80.0 - 94.0 FL) 90.0 MCH (27.0 - 31.0 PG) 29.8 RDW (11.5 - 14.5 %) 13.7 Plt Count (130 - 400 /CUMM) 150 MPV (7.4 - 10.4 FL) 8.1 Gran % (42.2 - 75.2 %) 72.3 Lymphocytes % (20.5 - 51.1 %) 12.9 L Monocytes % (1.7 - 9.3 %) 12.6 H Eosinophils % (0 - 5 %) 1.0 Basophils % (0.0 - 2.0 %) 1.2 Absolute Granulocytes (1.4 - 6.5 /CUMM) 6.7 H Segmented Neutrophils (42.2 - 75.2 %) 69 Band Neutrophils (0.0 - 5.0 %) 2 Absolute Lymphocytes (1.2 - 3.4 /CUMM) 1.2 Lymphocytes (20.5 - 51.1 %) 20 L Monocytes (1.7 - 9.3 %) 8 Absolute Monocytes (0.10 - 0.60 /CUMM) 1.2 H Eosinophils (0 - 5.0 %) 1 Absolute Eosinophils (0.0 - 0.7 /CUMM) 0.1 Absolute Basophils (0.0 - 0.2 /CUMM) 0.1 PUBS MCHC (33.0 - 37.0 G/DL) 33.1 Urines Urinalysis MOD H Urine Color (YEL,AMB,STR) YEL Urine Clarity (CLEAR) HAZY H Urine pH (5.0 - 8.0) 5.5 Ur Specific [place] (1.001 - 1.035) >= 1.030 Urine Protein (NEG,<30 MG/DL) 100 H Urine Ketones (NEG) TRACE H Urine Nitrite (NEG) NEG Urine Bilirubin (NEG) NEG@ICTO Urine Urobilinogen (0.1 - 1.0 EU/dl) 0.2 Ur Leukocyte Esterase (NEG) TRACE H Ur Microscopic SEDIMENT EXAMINED Urine RBC (0 - 5 /HPF) 15-25 H Urine WBC (0 - 2 /HPF) 5-10 H Urine Mucus (FEW,NONE) FEW Urine Hemoglobin (NEG) LARGE H Urine Glucose (N MG/DL) NEG Fibrinogen 401 D-dimer 1789 Fibrin split products 10-40 Imaging/Other Studies: Chest x-ray-no acute process Assessment/Plan Assessment: -- Dermatitis of unclear etiology. Patient has a normal CBC and his coagulation studies are consistent with warfarin effect. Patient has mild renal insufficiency. At this juncture, I am uncertain that the dermatitis is related to an underlying hematologic process/renal process. The patient's platelet count is normal,no clinical suspicion for TTP. Recommend- -Dermatology should see patient today/biopsy should be performed -Check SPEP with quantitative immunoglobulins , ESR -rheumatology vasculitis workup has begun -nephrology consult --Coagulation-clotting studies are most consistent with warfarin effect. I am uncertain as to the significance of the increased d-dimer. Given his chronic "venous stasis issues", I would obtain Doppler ultrasound of his lower extremities Recommendations: ,, Consult Acknowledgment - Thank you for your consult request.
[2016-08-24 08:19] LABS: ABSOLUTE BASOPHIL COUNT 0 /CUMM (0.0-0.2); ABSOLUTE EOSINOPHIL COUNT 0.1 /CUMM (0.0-0.7); ABSOLUTE GRANULOCYTE CT 5.2 /CUMM (1.4-6.5); ABSOLUTE LYMPH COUNT 1.3 /CUMM (1.2-3.4); ABSOLUTE MONOCYTE COUNT 0.9 /CUMM (0.10-0.60); BASOPHIL % 0.3 % (0.0-2.0); EOSINOPHIL % 0.7 % (0-5); GRANULOCYTE % 69.6 % (42.2-75.2); HEMATOCRIT 33.7 % (42-52); MEAN CORPUSCULAR HGB 30.4 PG (27.0-31.0); MEAN CORPUSCULAR HGB CONC 33.7 G/DL (33.0-37.0); MEAN CORPUSCULAR VOLUME 90.1 FL (80.0-94.0); MEAN PLATELET VOLUME 8.6 FL (7.4-10.4); PLATELET COUNT 124 /CUMM (130-400); RBC DISTRIBUTION WIDTH 13.8 % (11.5-14.5); RED BLOOD CELL CT 3.74 /CUMM (4.70-6.10); WHITE BLOOD CELL COUNT 7.5 /CUMM (4.8-10.8)
--- NOTE | 2016-08-24 09:15 | PN- Housestaff ---
JENIFFER BAKER,RUBIO 08/24/16 0915: Subjective Follow-up For: Rapidly spreading rash Dark urine Complaints: no complaints Subjective: I saw and examined the patient today morning. He reports pain from right knee to the foot with increased sensitivity to touch. Denies any fevers, chills. No recent infections. Recently took Lasix and started using a detergent. Review of Systems Constitutional: Reports: see HPI, malaise, weakness. EENTM: Reports: see HPI. Comments: ROS negative except the above. Objective Last 24 Hrs of Vital Signs/I&O Vital Signs Date Time Temp Pulse Resp B/P Pulse O2 O2 Flow FiO2 Ox Delivery Rate 08/24 1147 98.5 90 20 120/80 96 08/24 1055 101 144/80 08/24 0655 99.0 100 20 146/80 95 Room Air 08/24 0600 99.0 100 20 146/80 08/24 0200 99.3 102 20 120/80 / 0147 99.3 102 20 120/80 96 Room Air 08/24 0000 99.0 92 18 150/90 03 0000 97 Room Air 08/23 2314 99.0 92 18 150/90 97 Room Air 08/23 2230 98 / 2230 99.6 100 18 140/92 98 Room Air 08/23 1939 99.3 97 20 149/86 100 Room Air 08/23 1632 97.5 85 22 145/86 99 Room Air 08/23 1420 97.7 90 20 121/75 97 Room Air Intake & Output / 1600 03/01 0800 03 0000 Intake Total 625 Output Total 525 250 Balance 100 -250 Intake, IV 625 Intake, Oral 0 Number 0 Bowel Movements Output, Urine 525 250 Patient 90.718 kg 90.718 kg Weight Physical Exam General Appearance: Alert, Oriented X3, Cooperative, No Acute Distress Skin: No Rashes, No Breakdown HEENT: Atraumatic, PERRLA, EOMI Neck: Supple Cardiovascular: Normal S1, Normal S2, No Murmurs Lungs: Diffuse expiratory wheezing in the upper lobes, lower lobes appear clear. Abdomen: Normal Bowel Sounds, Soft, No Tenderness Neurological: Normal Tone, increased sensation in the right lower extremity. Extremities: No Clubbing, No Cyanosis, extensive purpuric, nonblanching rash extending all over the lower extremities, abdomen and upper extremities. Vascular: Normal Pulses Current Medications: Current Medications Sig/Dagoberto Start time Last Medication Dose Route Stop Time Status Admin Acetaminophen 650 MG Q6P PRN 08/23 2345 AC PO Aspirin 81 MG DAILY 08/24 1000 AC 08/24 PO 1055 Folic Acid 1 MG DAILY 08/24 1000 AC 08/24 PO 1055 Lorazepam 0 Q1P PRN 08/24 2345 AC IV Metoprolol Tartrate 50 MG DAILY 08/24 1000 AC 08/24 PO 1055 Multivitamins 1 TAB DAILY 08/24 1000 AC 08/24 PO 1055 Sodium Chloride 1,000 ML ONCE ONE 08/23 1745 DC 08/23 IV 08/24 0144 1827 Thiamine HCl 100 MG DAILY 08/24 1000 AC 08/24 PO 1055 Last 24 Hrs of Lab/Hemal Results Last 24 Hrs of Labs/Mics: Laboratory Tests 08/24/16 0817: C-React Prot High Sens Cancelled, ESR Westergren Cancelled 08/24/16 0640: MARTIN Titer ND, Anti-Nuclear Antibody NEG 1:40 IFA ASSAY 08/24/16 0640: Anion Gap 5, Estimated GFR > 60, BUN/Creatinine Ratio 21.8, C-Reactive Prot, Quant 5.9 H, C-React Prot High Sens > 15.0 H, CBC w Diff NO MAN DIFF REQ, RBC 3.74 L, MCV 90.1, MCH 30.4, RDW 13.8, MPV 8.6, Gran % 69.6, Lymphocytes % 16.9 L, Monocytes % 12.5 H, Eosinophils % 0.7, Basophils % 0.3, Absolute Granulocytes 5.2, Absolute Lymphocytes 1.3, Absolute Monocytes 0.9 H, Absolute Eosinophils 0.1, Absolute Basophils 0, PUBS MCHC 33.7, ESR Westergren Pending, ANCA Pending, Complement C3 Pending, Complement C4 Pending, Hepatitis A IgM Ab NONREACTIVE, Hep Bs Antigen NONREACTIVE, Hep B Core IgM Ab Conf NONREACTIVE, Hepatitis C Antibody NONREACTIVE, HIV 1&2 Ab Western Blot NONREACTIVE 08/24/16 0130: Fibrinogen Activity 407 H, Fibrin Degrad Products >10 but < 40 ug/ml H, D- Dimer 1789 H 08/23/16 1824: Urinalysis MOD H, Urine Color YEL, Urine Clarity HAZY H, Urine pH 5.5, Ur Specific [place] >= 1.030, Urine Protein 100 H, Urine Ketones TRACE H, Urine Nitrite NEG, Urine Bilirubin NEG@ICTO, Urine Urobilinogen 0.2, Ur Leukocyte Esterase TRACE H, Ur Microscopic SEDIMENT EXAMINED, Urine RBC 15-25 H, Urine WBC 5-10 H, Urine Mucus FEW, Urine Hemoglobin LARGE H, Urine Glucose NEG 08/23/16 1651: Anion Gap 11, Estimated GFR 40 L, BUN/Creatinine Ratio 15.9, Glucose 102 H, Calcium 8.7, Total Bilirubin 1.2, AST 27, ALT 24, Alkaline Phosphatase 88, Total Protein 6.7, Albumin 3.2 L, Globulin 3.5, Albumin/Globulin Ratio 0.9 L, PT 25.0 H, INR 2.40 H, APTT 34, CBC w Diff NO MAN DIFF REQ, RBC 4.22 L, MCV 90.0 , MCH 29.8, RDW 13.7, MPV 8.1, Gran % 72.3, Lymphocytes % 12.9 L, Monocytes % 12.6 H, Eosinophils % 1.0, Basophils % 1.2, Absolute Granulocytes 6.7 H, Segmented Neutrophils 69, Band Neutrophils 2, Absolute Lymphocytes 1.2, Lymphocytes 20 L, Monocytes 8, Absolute Monocytes 1.2 H, Eosinophils 1, Absolute Eosinophils 0.1, Absolute Basophils 0.1, PUBS MCHC 33.1 Lines/Diet/Fluids Lines: peripheral lines Assessment/Plan Assessment: Patient is a 71-year-old male with past medical history significant for atrial fibrillation on Coumadin, hypertension, CAD status post stents, recently admitted 3 weeks ago after significant bleeding from varicose vein requiring 2 units transfusion with persistent swelling, discoloration for which she self administered himself with Lasix twice last week. He was admitted yesterday with worsening lower right leg pain and acute development of diffusely spreading petechial rash. Rash started on the lower extremities and started spreading all over to the upper extremities abdomen sparing pack and face. At admission he is afebrile with stable vitals. Labs significant for normal white count with BUN/creatinine 27/1.7, normal liver enzymes, INR 2.4 Fibrinogen activity 417, July nutrition products greater than 10, d-dimer 1789 UAs hazy with trace ketones, white count 5-10, RBC 15-25, leukocyte esterase trace. Hepatitis panel is negative, HIV nonreactive, antinuclear antibody negative, pending MARTIN and complement levels His ESR is 36, C-reactive protein 5.9. Venous Doppler negative for any deep vein thrombosis X-ray negative for involvement of bone Plan Admitted to [facility] med floor Rapidly proliferating Purpuric/petechial rash with dark urine At this point vascular disease is often differential, with the differentials including drug-induced, allergic, infectious. Derm consulted - suggest her skin punch biopsy Surgery consulted for biopsy Henoch-Schnlein purpura (in consideration of small vessel vasculitis) is associated with very poor prognosis in adult as opposed to in children Renal consultation if renal injury further persists Right lower extremity ulcer Wound consult placed - suggesting wound cleansing and then moist wound care daily with either Adaptic or Xeroform and leg elevation while in bed. CHARLES BUN/creatinine - 27/1.7 at admission Much better today 24/.1 We will recheck BEP tomorrow Atrial fibrillation On Coumadin at home Check INR daily and dose accordingly Hypertension His home medication metoprolol 50 mg continued CAD status post stents Medication aspirin discontinued DVT prophylaxis On Coumadin CODE STATUS DNR/DNI Problem List: 1. Bleeding from varicose veins of right lower extremity 2. Acute kidney injury 3. Petechial rash 4. Atrial fibrillation Pain Ratin Pain Location: right knee to the foot Pain Goal: Pain 4 or less Pain Plan: tylenol prn Tomorrow's Labs & Rationales: CBC while monitoring off antibiotics to monitor white count BEP to monitor renal function in CHARLES paitent PT while on warfarin for A.fib Consulting Request: Consulting Specialty: Hematology/Oncology LUC BAKER,[facility] 08/24/16 1310: Attending MD Review Statement Attending Statement Attending MD Statement: examined this patient, discuss w/resident/PA/SHOPFITTER, agreed w/resident/PA/SHOPFITTER, reviewed EMR data (avail), discussed with nursing, discussed with case mgmt, reviewed images, amended to note Attending Assessment/Plan: Patient seen and examined, feels the same. He does complain of pain in the right extremity. He has a wound on the right ellsworth and he is admitted with petechial rash which according to the patient has worsened when he came to the hospital. Vital Signs Date Time Temp Pulse Resp B/P Pulse O2 O2 Flow FiO2 Ox Delivery Rate 08/24 1147 98.5 90 20 120/80 96 08/24 1055 101 144/80 03/ 0655 99.0 100 20 146/80 95 Room Air 03/ 0600 99.0 100 20 146/80 03/ 0200 99.3 102 20 120/80 03/ 0147 99.3 102 20 120/80 96 Room Air 03/ 0000 99.0 92 18 150/90 03/ 0000 97 Room Air 08/23 2314 99.0 92 18 150/90 97 Room Air 08/23 2230 98 08/23 2230 99.6 100 18 140/92 98 Room Air 08/23 1939 99.3 97 20 149/86 100 Room Air 08/23 1632 97.5 85 22 145/86 99 Room Air 08/23 1420 97.7 90 20 121/75 97 Room Air on exam; aox3, nad. cv; s1, s2, rrr. resp; clear. abd; soft, nt, bs+ ext; trace edema. skin; + petechial rash on b/l le, hads, left flank. There is also superficial wound on right ellsworth. The RLE is warm to touch and dark in color, cannot completely r/o cellulitis. Laboratory Tests 08/24 08/24 0817 0640 Chemistry C-React Prot High Sens Cancelled Hematology ESR Westergren Cancelled Immunology MARTIN Titer ND Anti-Nuclear Antibody (NEG,1:40) NEG 1:40 IFA ASSAY 08/24 0640 Chemistry Sodium (137 - 145 mmol/L) 134 L Potassium (3.5 - 5.1 mmol/L) 5.0 Chloride (98 - 107 mmol/L) 106 Carbon Dioxide (22 - 30 mmol/L) 23 Anion Gap (5 - 16) 5 BUN (9 - 20 mg/dL) 24 H Creatinine (0.7 - 1.2 mg/dL) 1.1 Estimated GFR (>60 ml/min) > 60 BUN/Creatinine Ratio (7 - 25 %) 21.8 C-Reactive Prot, Quant (<1.0 mg/dL) 5.9 H C-React Prot High Sens (1.0 - 3.0 mg/L) > 15.0 H Hematology CBC w Diff NO MAN DIFF REQ WBC (4.8 - 10.8 /CUMM) 7.5 RBC (4.70 - 6.10 /CUMM) 3.74 L Hgb (14.0 - 18.0 G/DL) 11.4 L Hct (42 - 52 %) 33.7 L MCV (80.0 - 94.0 FL) 90.1 MCH (27.0 - 31.0 PG) 30.4 RDW (11.5 - 14.5 %) 13.8 Plt Count (130 - 400 /CUMM) 124 L MPV (7.4 - 10.4 FL) 8.6 Gran % (42.2 - 75.2 %) 69.6 Lymphocytes % (20.5 - 51.1 %) 16.9 L Monocytes % (1.7 - 9.3 %) 12.5 H Eosinophils % (0 - 5 %) 0.7 Basophils % (0.0 - 2.0 %) 0.3 Absolute Granulocytes (1.4 - 6.5 /CUMM) 5.2 Absolute Lymphocytes (1.2 - 3.4 /CUMM) 1.3 Absolute Monocytes (0.10 - 0.60 /CUMM) 0.9 H Absolute Eosinophils (0.0 - 0.7 /CUMM) 0.1 Absolute Basophils (0.0 - 0.2 /CUMM) 0 PUBS MCHC (33.0 - 37.0 G/DL) 33.7 ESR Westergren (0 - 10 MM) 36 H Immunology ANCA Pending Complement C3 Pending Complement C4 Pending Serology Hepatitis A IgM Ab (NONREACTIVE) NONREACTIVE Hep Bs Antigen (NONREACTIVE) NONREACTIVE Hep B Core IgM Ab Conf (NONREACTIVE) NONREACTIVE Hepatitis C Antibody (NONREACTIVE) NONREACTIVE HIV 1&2 Ab Western Blot (NONREACTIVE) NONREACTIVE 08/24 0130 Coagulation Fibrinogen Activity (200 - 393 MG/DL) 407 H Fibrin Degrad Products (< 10 ug/ml) >10 but < 40 ug/ml H D-Dimer (70 - 232 ng/ml) 1789 H 08/23 08/23 1824 1651 Chemistry Sodium (137 - 145 mmol/L) 136 L Potassium (3.5 - 5.1 mmol/L) 4.7 Chloride (98 - 107 mmol/L) 105 Carbon Dioxide (22 - 30 mmol/L) 20 L Anion Gap (5 - 16) 11 BUN (9 - 20 mg/dL) 27 H Creatinine (0.7 - 1.2 mg/dL) 1.7 H Estimated GFR (>60 ml/min) 40 L BUN/Creatinine Ratio (7 - 25 %) 15.9 Glucose (65 - 99 mg/dL) 102 H Calcium (8.4 - 10.2 mg/dL) 8.7 Total Bilirubin (0.2 - 1.3 mg/dL) 1.2 AST (17 - 59 U/L) 27 ALT (21 - 72 U/L) 24 Alkaline Phosphatase (< 127 U/L) 88 Total Protein (6.3 - 8.2 g/dL) 6.7 Albumin (3.5 - 5.0 g/dL) 3.2 L Globulin (1.9 - 4.2 gm/dL) 3.5 Albumin/Globulin Ratio (1.1 - 2.2 %) 0.9 L Coagulation PT (9.4 - 12.5 SEC) 25.0 H INR (0.90 - 1.17) 2.40 H APTT (25 - 37 SEC) 34 Hematology CBC w Diff NO MAN DIFF REQ WBC (4.8 - 10.8 /CUMM) 9.3 RBC (4.70 - 6.10 /CUMM) 4.22 L Hgb (14.0 - 18.0 G/DL) 12.6 L Hct (42 - 52 %) 38.0 L MCV (80.0 - 94.0 FL) 90.0 MCH (27.0 - 31.0 PG) 29.8 RDW (11.5 - 14.5 %) 13.7 Plt Count (130 - 400 /CUMM) 150 MPV (7.4 - 10.4 FL) 8.1 Gran % (42.2 - 75.2 %) 72.3 Lymphocytes % (20.5 - 51.1 %) 12.9 L Monocytes % (1.7 - 9.3 %) 12.6 H Eosinophils % (0 - 5 %) 1.0 Basophils % (0.0 - 2.0 %) 1.2 Absolute Granulocytes (1.4 - 6.5 /CUMM) 6.7 H Segmented Neutrophils (42.2 - 75.2 %) 69 Band Neutrophils (0.0 - 5.0 %) 2 Absolute Lymphocytes (1.2 - 3.4 /CUMM) 1.2 Lymphocytes (20.5 - 51.1 %) 20 L Monocytes (1.7 - 9.3 %) 8 Absolute Monocytes (0.10 - 0.60 /CUMM) 1.2 H Eosinophils (0 - 5.0 %) 1 Absolute Eosinophils (0.0 - 0.7 /CUMM) 0.1 Absolute Basophils (0.0 - 0.2 /CUMM) 0.1 PUBS MCHC (33.0 - 37.0 G/DL) 33.1 Urines Urinalysis MOD H Urine Color (YEL,AMB,STR) YEL Urine Clarity (CLEAR) HAZY H Urine pH (5.0 - 8.0) 5.5 Ur Specific [place] (1.001 - 1.035) >= 1.030 Urine Protein (NEG,<30 MG/DL) 100 H Urine Ketones (NEG) TRACE H Urine Nitrite (NEG) NEG Urine Bilirubin (NEG) NEG@ICTO Urine Urobilinogen (0.1 - 1.0 EU/dl) 0.2 Ur Leukocyte Esterase (NEG) TRACE H Ur Microscopic SEDIMENT EXAMINED Urine RBC (0 - 5 /HPF) 15-25 H Urine WBC (0 - 2 /HPF) 5-10 H Urine Mucus (FEW,NONE) FEW Urine Hemoglobin (NEG) LARGE H Urine Glucose (N MG/DL) NEG A/P; 71 y/o M with pmh sig for hypertension, CAD status post stent placement, anemia, varicose veins, and a recent admission to for RLE venous insufficiency and bleeding varicose veins with acute blood loss anemia requiring 2 units of PRBC, now admitted with worsening lower extremity rash which is now extending to other parts of the body. There is a question of vasculitis versus drug rash. Patient also had acute renal failure with a question of AIN but does not have eosinophilia. We cannot completely rule out cellulitis either. His lower extremity Doppler ultrasound is negative for DVT. He has a high C- reactive protein as well as moderately high ESR. Appreciate hematology input. At this point awaiting rheumatology, infectious disease as well as dermatology evaluations. No antibiotics were started. No steroids were started either. Please check INR so that we can dose comadin. DVT px; INR therapeutic.
--- NOTE | 2016-08-24 10:43 | ULTRASOUND REPORT ---
EXAMINATION: US TRIPLEX LOWER EXTREMITY, RIGHT CLINICAL INFORMATION: Right leg swelling and tenderness. COMPARISON: None TECHNIQUE: Color-flow triplex imaging with spectral analysis and compression Doppler were performed on the right lower extremity. FINDINGS: Respiratory variation, normal compression and augmented flow are noted throughout the lower extremity. The visualized common femoral vein, superficial femoral vein, profunda femoral vein, popliteal vein and midcalf peroneal and posterior tibial venous segments show no evidence of deep venous thrombosis. There is no Garcia's cyst. IMPRESSION: Normal triplex scan without evidence of deep venous thrombosis involving the right lower extremity.
--- NOTE | 2016-08-24 13:42 | Cons- Wound Care ---
General Information and HPI Consulting Request Date of Consult: 08/24/16 Requested By: KALEIGH FINCH MD Reason for Consult: Right lower extremity ulcer present on admission History of Present Illness: Patient is 71-year-old history of chronic venous insufficiency and right lower extremity venous stasis ulcer scheduled for vein closure next week. Presented to the emergency room on August 02 with bleeding from her right lower extremity venous stasis ulcer with acute blood loss anemia requiring transfusion. Recently he started Lasix because of swelling. He subsequently admitted with diffuse erythema and petechial purpuric rash over his body. He's had no fevers chills and cultures remain negative he remains. Afebrile he is being evaluated for possible vasculitis Allergies/Medications Allergies: Coded Allergies: NO KNOWN ALLERGIES (08/23/16) Home Med List: Aspirin (Aspirin*) 81 MG TAB.CHEW 81 MG PO DAILY HEART HEALTH (Reported) Metoprolol Tartrate 50 MG TABLET 1 TAB PO DAILY AFIB (Reported) Multivit-Min/FA/Lycopen/Lutein (Centrum Silver Men Tablet) 300 MCG-600 MCG-300 MCG TABLET 1 TAB PO DAILY SUPPLEMENT (Reported) Warfarin Sodium 5 MG TABLET 0.5 TAB PO 1700 BLOOD THINNER (Reported) Please check your INR regularly to keep in between 2-3. Warfarin Sodium 5 MG TABLET 1 TAB PO 1700 BLOOD THINNER (Reported) Please check your INR regularly to keep it in between 2-3. 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 child Services at Home: None Primary Language: Northern Irish Smoking Status: Never Smoked ETOH Use: occasional use Illicit Drug Use: denies illicit drug use Functional Ability ADLs Independent: dressing, eating, toileting, bathing. Ambulation: independent IADLs Independent: shopping, housework, finances, food prep, telephone, transportation , medication admin. Exam & Diagnostic Data Vital Signs and I&O Vital Signs Result Date Time Pulse Ox 96 08/24 1147 B/P 120/80 08/24 1147 Temp 98.5 08/24 1147 Pulse 90 08/24 1147 Resp 20 08/24 1147 O2 Delivery Room Air 08/24 0655 Intake & Output 08/24 0000 08/23 1600 08/23 0800 Intake Total Output Total 250 Balance -250 Output, Urine 250 Patient 200 lb 230 lb Weight Exam of the right lower extremity shows there to be marked erythema there is approximately 4 x 2 cm ulcer over the anterior aspect the right lower extremity there is no undermining or sinus tracking there is dried blood present. Distal pulses are palpable there's 2+ pedal edema. There is diffuse purpuric petechial rash over bilateral legs trunk and arms Assessment/Plan Impression/Plan: 71-year-old gentleman with chronic venous insufficiency venous stasis ulcer admitted with acute kidney injury and diffuse rash of uncertain significance but of concern for possible vasculitis either allergic or leukocytoclastic. His wound requires wound cleansing and then moist wound care daily with either Adaptic or Xeroform and leg elevation while in bed. Dermatology evaluation for consideration of punch biopsy would be appropriate. Consult Acknowledgment - Thank you for your consult request.
--- NOTE | 2016-08-24 14:58 | Cons- Rheumatology ---
General Information and HPI Consulting Request Date of Consult: 08/24/16 Requested By: KALEIGH FINCH MD Reason for Consult: Evaluate for a systemic vasculitis Source of Information: patient Exam Limitations: no limitations History of Present Illness: This is a 71-year-old male with no significant rheumatologic history who was admitted to the hospital yesterday with a rapidly spreading total body rash. To evaluate for possible vasculitis I was called in consultation. Patient was in his usual state of health until 24 hours before admission when he noted the onset of a rash that began in his right lower extremity and rapidly spread. No fever chills or arthralgias. No chest pain hemoptysis or hematuria. He had been on his usual medications with the exception of one tablet of Lasix which she took 2 days or so earlier. Since admission his rashes spread to virtually all of his body without any pruritus or discomfort. Blood work is unremarkable except for mild anemia with a hematocrit of approximately 34 and borderline thrombocytopenia which is not new according to his previous lab results. His sedimentation rate is elevated at 36 and his CRP is elevated at 5.9. MARTIN has already been done and is negative and an ANCA is pending. His urinalysis however does show a hemoglobin and proteinuria of 100 mg/dL his creatinine is elevated at 1.7 as well. Allergies/Medications Allergies: Coded Allergies: NO KNOWN ALLERGIES (08/23/16) Home Med List: Aspirin (Aspirin*) 81 MG TAB.CHEW 81 MG PO DAILY HEART HEALTH (Reported) Metoprolol Tartrate 50 MG TABLET 1 TAB PO DAILY AFIB (Reported) Multivit-Min/FA/Lycopen/Lutein (Centrum Silver Men Tablet) 300 MCG-600 MCG-300 MCG TABLET 1 TAB PO DAILY SUPPLEMENT (Reported) Warfarin Sodium 5 MG TABLET 0.5 TAB PO 1700 BLOOD THINNER (Reported) Please check your INR regularly to keep in between 2-3. Warfarin Sodium 5 MG TABLET 1 TAB PO 1700 BLOOD THINNER (Reported) Please check your INR regularly to keep it in between 2-3. Current Medications: Current Medications Sig/Dagoberto Start time Last Medication Dose Route Stop Time Status Admin Acetaminophen 650 MG Q6P PRN 08/23 2345 AC PO Aspirin 81 MG DAILY 08/24 1000 AC 08/24 PO 1055 Folic Acid 1 MG DAILY 08/24 1000 AC 08/24 PO 1055 Lorazepam 0 Q1P PRN 08/24 2345 AC IV Metoprolol Tartrate 50 MG DAILY 08/24 1000 AC 08/24 PO 1055 Multivitamins 1 TAB DAILY 08/24 1000 AC 08/24 PO 1055 Patient Medication 1 ED .STK-MED ONE 08/24 1407 DC Teaching ED 08/24 1408 Sodium Chloride 1,000 ML ONCE ONE 08/23 1745 DC 08/23 IV 08/24 0144 1827 Thiamine HCl 100 MG DAILY 08/24 1000 AC 08/24 PO 1055 Review of Systems Review of Systems: Negative as in history of present illness Past History Travel History Traveled to [place] past 21 day No Medical History Blood Transfusion Hx: Yes Neurological: NONE EENT: NONE Cardiovascular: AFIB, hypertension, RUPTURED VARICOSE VEIN Respiratory: NONE Gastrointestinal: HEMMORHOIDS Hepatic: NONE Renal: NONE Musculoskeletal: NONE Psychiatric: NONE Endocrine: NONE Blood Disorders: NONE Cancer(s): 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 child Services at Home: None Primary Language: Faroese Smoking Status: Never Smoked ETOH Use: occasional use Illicit Drug Use: denies illicit drug use Functional Ability ADLs Independent: dressing, eating, toileting, bathing. Ambulation: independent IADLs Independent: shopping, housework, finances, food prep, telephone, transportation , medication admin. Exam & Diagnostic Data Vital Signs and I&O Vital Signs Date Time Temp Pulse Resp B/P Pulse O2 O2 Flow FiO2 Ox Delivery Rate 08/24 1450 98.1 93 20 140/70 93 08/24 1147 98.5 90 20 120/80 96 08/24 1055 101 144/80 08/24 0655 99.0 100 20 146/80 95 Room Air 08/24 0600 99.0 100 20 146/80 08/24 0200 99.3 102 20 120/80 08/24 0147 99.3 102 20 120/80 96 Room Air 08/24 0000 99.0 92 18 150/90 03 0000 97 Room Air 08/23 2314 99.0 92 18 150/90 97 Room Air 08/23 2230 98 08/23 2230 99.6 100 18 140/92 98 Room Air 08/23 1939 99.3 97 20 149/86 100 Room Air 08/23 1632 97.5 85 22 145/86 99 Room Air Intake & Output 08/24 1600 08/24 0800 03/01 0000 Intake Total 625 Output Total 525 250 Balance 100 -250 Intake, IV 625 Intake, Oral 0 Number 0 Bowel Movements Output, Urine 525 250 Patient 200 lb 200 lb Weight Physical Exam: On examination he is well-developed well-nourished otherwise healthy-appearing male. Most impressive is diffuse erythematous macular nonblanching rash his right lower extremity reveals confluence large ecchymotic area from chronic venous insufficiency. There is an ulcer over the dorsum of the mid tibia. His joints have good range of motion there are no subcutaneous nodules or tophus deposits there is no cervical or supraclavicular lymphadenopathy. 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 Biopsies indicated but not likely to be of much diagnostic value. Was concerning is the rising creatinine and the proteinuria. This could represent a glomerulonephritis and I believe nephrology should be involved in ANCA is pending but I doubt this is Ozzy's granulomatosis or microscopic polyangiitis. Goodpasture's syndrome is unlikely without hemoptysis and a pulmonary lesion. Streptozyme test and ASLO titer would be indicated. Recommendations: I recommendations are to obtain a renal consult a weight ankle. I do not believe steroids are indicated at this time. Obviously his creatinine will need to be followed after hydration. Consult Acknowledgment - Thank you for your consult request.
--- NOTE | 2016-08-24 15:58 | Event Note ---
Event Note Event Note: Spoke to Dr. Bains for a dermatology consult. 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 May benefit form a skin biopsy. Topical steroids if needed Discussed with attending. Placed surgical consult for a skin biopsy.
[2016-08-24 16:34] LABS: PT 23.1 SEC (9.4-12.5)
--- NOTE | 2016-08-24 17:35 | Cons- Infect Disease ---
General Information and HPI Consulting Request Date of Consult: 08/24/16 Requested By: KALEIGH FINCH MD Reason for Consult: Rule out cellulitis Source of Information: patient, old records History of Present Illness: This is a 71-year-old man with a history of atrial fibrillation, maintained on Coumadin, coronary artery disease, with varicose veins, hospitalized 3 weeks prior to admission after trauma to the right leg resulting in a significant bleed, requiring 2 units of blood, with persistent swelling, discomfort and discoloration of the right leg since then, self treated with Lasix several days prior to admission because of the persistent leg swelling, admitted on August 23 after presenting to the emergency room with a diffuse petechial rash which he states he first noted, in a more localized area, one week prior to admission, with no associated fevers or chills. On admission he was afebrile. Laboratory data revealed a white blood cell count of 9000, BUN/creatinine 27 and 1.7, with normal liver enzymes, INR 2.40. Urinalysis 15-25 RBC/5-10 WBCs. Chest x-ray was negative. X-ray of the right tibia/fibula negative. Doppler of the right lower extremity was negative. He was followed off antibiotics and has remained afebrile since admission. He has been evaluated by Hematology and Rheumatology, with their consultations noted. Allergies/Medications Allergies: Coded Allergies: NO KNOWN ALLERGIES (08/23/16) Home Med List: Aspirin (Aspirin*) 81 MG TAB.CHEW 81 MG PO DAILY HEART HEALTH (Reported) Metoprolol Tartrate 50 MG TABLET 1 TAB PO DAILY AFIB (Reported) Multivit-Min/FA/Lycopen/Lutein (Centrum Silver Men Tablet) 300 MCG-600 MCG-300 MCG TABLET 1 TAB PO DAILY SUPPLEMENT (Reported) Warfarin Sodium 5 MG TABLET 0.5 TAB PO 1700 BLOOD THINNER (Reported) Please check your INR regularly to keep in between 2-3. Warfarin Sodium 5 MG TABLET 1 TAB PO 1700 BLOOD THINNER (Reported) Please check your INR regularly to keep it in between 2-3. 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 child Services at Home: None Primary Language: Georgian Smoking Status: Never Smoked ETOH Use: occasional use Illicit Drug Use: denies illicit drug use Functional Ability ADLs Independent: dressing, eating, toileting, bathing. Ambulation: independent IADLs Independent: shopping, housework, finances, food prep, telephone, transportation , medication admin. Review of Systems Review of Systems Constitutional: Denies: chills, fever. All Other Systems: Reviewed and Negative Exam & Diagnostic Data Last 24 Hrs of Vital Signs/I&O Vital Signs Date Time Temp Pulse Resp B/P Pulse O2 O2 Flow FiO2 Ox Delivery Rate 08/24 1450 98.1 93 20 140/70 93 08/24 1147 98.5 90 20 120/80 96 08/24 1055 101 144/80 08/24 0655 99.0 100 20 146/80 95 Room Air 08/24 0600 99.0 100 20 146/80 08/24 0200 99.3 102 20 120/80 08/24 0147 99.3 102 20 120/80 96 Room Air 08/24 0000 99.0 92 18 150/90 03 0000 97 Room Air 08/23 2314 99.0 92 18 150/90 97 Room Air 08/23 2230 98 08/23 2230 99.6 100 18 140/92 98 Room Air 08/23 1939 99.3 97 20 149/86 100 Room Air Intake & Output 08/24 1600 08/24 0800 08/24 0000 Intake Total 800 625 Output Total 525 250 Balance 800 100 -250 Intake, IV 625 Intake, Oral 800 0 Number 0 Bowel Movements Output, Urine 525 250 Patient 200 lb 200 lb Weight Physical Exam Other Physical Findings: He is awake and alert in no acute distress. He is afebrile. Skin reveals diffuse petechial rash. HEENT exam is negative. Neck is supple with no adenopathy. Lungs are clear. Heart regular rhythm with no murmur. Abdomen is soft, nontender with positive bowel sounds. Back no CVA tenderness. Extremities right leg ecchymosis below the knee, with swelling and mild warmth, minimally tender to palpation; pulses 2+ and equal. Neuro is without focality. Last 24 Hours of Lab Results: Laboratory Tests 08/24 08/24 1547 0817 Chemistry C-React Prot High Sens Cancelled Coagulation PT (9.4 - 12.5 SEC) 23.1 H INR (0.90 - 1.17) 2.22 H Fibrinogen Activity (200 - 393 MG/DL) 417 H Fibrin Degrad Products (< 10 ug/ml) >10 but < 40 ug/ml H D-Dimer (70 - 232 ng/ml) 1603 H Hematology ESR Westergren Cancelled 08/24 08/24 0640 0640 Chemistry Sodium (137 - 145 mmol/L) 134 L Potassium (3.5 - 5.1 mmol/L) 5.0 Chloride (98 - 107 mmol/L) 106 Carbon Dioxide (22 - 30 mmol/L) 23 Anion Gap (5 - 16) 5 BUN (9 - 20 mg/dL) 24 H Creatinine (0.7 - 1.2 mg/dL) 1.1 Estimated GFR (>60 ml/min) > 60 BUN/Creatinine Ratio (7 - 25 %) 21.8 C-Reactive Prot, Quant (<1.0 mg/dL) 5.9 H C-React Prot High Sens (1.0 - 3.0 mg/L) > 15.0 H Hematology CBC w Diff NO MAN DIFF REQ WBC (4.8 - 10.8 /CUMM) 7.5 RBC (4.70 - 6.10 /CUMM) 3.74 L Hgb (14.0 - 18.0 G/DL) 11.4 L Hct (42 - 52 %) 33.7 L MCV (80.0 - 94.0 FL) 90.1 MCH (27.0 - 31.0 PG) 30.4 RDW (11.5 - 14.5 %) 13.8 Plt Count (130 - 400 /CUMM) 124 L MPV (7.4 - 10.4 FL) 8.6 Gran % (42.2 - 75.2 %) 69.6 Lymphocytes % (20.5 - 51.1 %) 16.9 L Monocytes % (1.7 - 9.3 %) 12.5 H Eosinophils % (0 - 5 %) 0.7 Basophils % (0.0 - 2.0 %) 0.3 Absolute Granulocytes (1.4 - 6.5 /CUMM) 5.2 Absolute Lymphocytes (1.2 - 3.4 /CUMM) 1.3 Absolute Monocytes (0.10 - 0.60 /CUMM) 0.9 H Absolute Eosinophils (0.0 - 0.7 /CUMM) 0.1 Absolute Basophils (0.0 - 0.2 /CUMM) 0 PUBS MCHC (33.0 - 37.0 G/DL) 33.7 ESR Westergren (0 - 10 MM) 36 H Immunology MARTIN Titer ND Anti-Nuclear Antibody (NEG,1:40) NEG 1:40 IFA ASSAY ANCA Pending Complement C3 Pending Complement C4 Pending Serology Hepatitis A IgM Ab (NONREACTIVE) NONREACTIVE Hep Bs Antigen (NONREACTIVE) NONREACTIVE Hep B Core IgM Ab Conf (NONREACTIVE) NONREACTIVE Hepatitis C Antibody (NONREACTIVE) NONREACTIVE HIV 1&2 Ab Western Blot (NONREACTIVE) NONREACTIVE 08/24 0130 Coagulation Fibrinogen Activity (200 - 393 MG/DL) 407 H Fibrin Degrad Products (< 10 ug/ml) >10 but < 40 ug/ml H D-Dimer (70 - 232 ng/ml) 1789 H 08/23 1824 Urines Urinalysis MOD H Urine Color (YEL,AMB,STR) YEL Urine Clarity (CLEAR) HAZY H Urine pH (5.0 - 8.0) 5.5 Ur Specific [place] (1.001 - 1.035) >= 1.030 Urine Protein (NEG,<30 MG/DL) 100 H Urine Ketones (NEG) TRACE H Urine Nitrite (NEG) NEG Urine Bilirubin (NEG) NEG@ICTO Urine Urobilinogen (0.1 - 1.0 EU/dl) 0.2 Ur Leukocyte Esterase (NEG) TRACE H Ur Microscopic SEDIMENT EXAMINED Urine RBC (0 - 5 /HPF) 15-25 H Urine WBC (0 - 2 /HPF) 5-10 H Urine Mucus (FEW,NONE) FEW Urine Hemoglobin (NEG) LARGE H Urine Glucose (N MG/DL) NEG Last 24 Hours of Hemal Results: No cultures obtained Diagnostic Data Recent Imaging Findings: Chest x-ray negative. X-ray of the right tibia/fibula negative. Doppler of the right lower extremity negative. Assessment/Plan Assessment/Plan Impression: This is a 71-year-old man with atrial fibrillation, maintained on Coumadin, and varicosities of the lower extremities, status post injury to his right leg 3 weeks prior to admission resulting in a significant bleed, requiring 2 units of blood, admitted on August 23 with a diffuse petechial rash, first noted one week prior to admission, and persistent ecchymosis, edema and mild discomfort of the right leg, found to be afebrile with a normal white blood cell count. The etiology of the petechial rash is unclear. It could be drug-induced, given his recent self treatment with Lasix, though he states the rash began prior to the Lasix. He denies any other new medications, though he did take a new vitamin several weeks prior to admission. A vasculitis is possible, but seems unlikely given the acute presentation. The right leg ecchymosis and edema presumably represents sequelae from his recent injury, with little evidence for cellulitis. As he is otherwise stable, with temperatures and white blood cell count normal, he can continue to be followed off antibiotics. The role of a skin biopsy is unclear but it is being considered. Suggestion: 1. Dermatology input 2. Continue to follow off antibiotics Consult Acknowledgment - Thank you for your consult request.
--- NOTE | 2016-08-25 06:40 | PN- Housestaff ---
JENIFFER BAKER,RUBIO 08/25/16 0640: Subjective Follow-up For: Rapidly spreading rash Dark urine Subjective: I saw and examined the patient today morning He reports cough with phlegm production, appears red during interview. He denies any fever, audible wheezing evident. Denies any smoking. He also reports no further increase in distribution of rash. Review of Systems Constitutional: Reports: see HPI. EENTM: Reports: see HPI. Comments: ROS negative except the above. Objective Last 24 Hrs of Vital Signs/I&O Vital Signs Date Time Temp Pulse Resp B/P Pulse O2 O2 Flow FiO2 Ox Delivery Rate 08/24 2238 98.0 86 20 138/60 95 Room Air 08/24 1450 98.1 93 20 140/70 93 08/24 1147 98.5 90 20 120/80 96 08/24 1055 101 144/80 08/24 0655 99.0 100 20 146/80 95 Room Air Intake & Output 08/25 0800 08/25 0000 08/24 1600 Intake Total 200 800 Output Total Balance 200 800 Intake, Oral 200 800 Patient 90.718 kg Weight Physical Exam General Appearance: Alert, Oriented X3, Cooperative Skin: No Rashes, No Breakdown HEENT: Atraumatic, PERRLA Neck: Supple Cardiovascular: Normal S1, Normal S2, No Murmurs Lungs: Normal Air Movement, diffuse wheezing evident prominent in the upper lobes Abdomen: Normal Bowel Sounds, Soft, No Tenderness Neurological: Normal Speech, Strength at 5/5 X4 Ext, Normal Tone Extremities: No Clubbing, No Cyanosis, diffuse more brownish rash. Vascular: Pulses Symmetrical Current Medications: Current Medications Sig/Dagoberto Start time Last Medication Dose Route Stop Time Status Admin Acetaminophen 650 MG Q6P PRN 08/23 2345 AC PO Aspirin 81 MG DAILY 08/24 1000 AC 08/24 PO 1055 Folic Acid 1 MG DAILY 08/24 1000 AC 08/24 PO 1055 Lorazepam 0 Q1P PRN 08/24 2345 AC IV Metoprolol Tartrate 50 MG DAILY 08/24 1000 AC 08/24 PO 1055 Multivitamins 1 TAB DAILY 08/24 1000 AC 08/24 PO 1055 Patient Medication 1 ED .STK-MED ONE 08/24 1407 DC Teaching ED 08/24 1408 Thiamine HCl 100 MG DAILY 08/24 1000 AC 08/24 PO 1055 Warfarin Sodium 5 MG .STK-MED ONE 08/24 183 DC PO 08/24 183 Warfarin Sodium 2.5 MG COUMADIN 1700 ONE 08/24 1814 DC 08/24 PO 08/24 181 183 Last 24 Hrs of Lab/Hemal Results Last 24 Hrs of Labs/Mics: Laboratory Tests 08/25/16 0615: Anion Gap 6, Estimated GFR > 60, BUN/Creatinine Ratio 29.0 H, PT 18.9 H, INR 1.81 H, CBC w Diff NO MAN DIFF REQ, RBC 3.80 L, MCV 89.7, MCH 30.2, RDW 13.6, MPV 9.0, Gran % 73.7, Lymphocytes % 12.3 L, Monocytes % 12.8 H, Eosinophils % 0.9, Basophils % 0.3, Absolute Granulocytes 6.4, Absolute Lymphocytes 1.1 L, Absolute Monocytes 1.1 H, Absolute Eosinophils 0.1, Absolute Basophils 0, PUBS MCHC 33.6 Assessment/Plan Assessment: Patient is a 71-year-old male with past medical history significant for atrial fibrillation on Coumadin, hypertension, CAD status post stents, recently admitted 3 weeks ago after significant bleeding from varicose vein requiring 2 units transfusion with persistent swelling, discoloration for which she self administered himself with Lasix twice last week. He was admitted yesterday with worsening lower right leg pain and acute development of diffusely spreading petechial rash. Rash started on the lower extremities and started spreading all over to the upper extremities abdomen sparing pack and face. At admission he is afebrile with stable vitals. Labs significant for normal white count with BUN/creatinine 27/1.7, normal liver enzymes, INR 2.4 Fibrinogen activity 417, February nutrition products greater than 10, d-dimer 1789 UAs hazy with trace ketones, white count 5-10, RBC 15-25, leukocyte esterase trace. Hepatitis panel is negative, HIV nonreactive, antinuclear antibody negative, pending MARTIN and complement levels His ESR is 36, C-reactive protein 5.9. Venous Doppler negative for any deep vein thrombosis X-ray negative for involvement of bone Plan Admitted to [facility] med floor Rapidly proliferating Purpuric/petechial rash with dark urine * At this point vascular disease is often primary differential, with other differentials including drug-induced, allergic, infectious. * Derm consulted - suggesting skin punch biopsy * Had cough with pink to reddish sputum - pulm consulted and Chest CT without contrast suggested which revealed pulmonary nodules (not significant). * Surgery consulted for biopsy - may probably perform today depending on their convineince. * Henoch-Schnlein purpura (in consideration of small vessel vasculitis) is associated with very poor prognosis in adult as opposed to in children * Renal consultation if renal injury further persists Right lower extremity ulcer Wound consult placed - suggesting wound cleansing and then moist wound care daily with either Adaptic or Xeroform and leg elevation while in bed. CHARLES * BUN/creatinine - 27/1.7 at admission * Much better today 29/1.0 * We will recheck BEP tomorrow Atrial fibrillation * On Coumadin at home * Check INR daily and dose accordingly after the punch biopsy Hypertension * His home medication metoprolol 50 mg continued CAD status post stents * Medication aspirin continued DVT prophylaxis * On Coumadin CODE STATUS * DNR/DNI Problem List: 1. Acute kidney injury 2. Atrial fibrillation 3. Petechial rash Pain Ratin Pain Location: n/a Pain Goal: Pain 4 or less Pain Plan: tylenol PRN Tomorrow's Labs & Rationales: NONE Consulting Request: Consulting Specialty: Hematology/Oncology SHAAN CALLE MD 08/25/16 1139: Attending MD Review Statement Attending Statement Attending MD Statement: examined this patient, discuss w/resident/PA/BUSINESS OBJECTS ANALYST, agreed w/resident/PA/BUSINESS OBJECTS ANALYST, reviewed EMR data (avail), discussed with nursing, discussed with case mgmt, reviewed images, amended to note Attending Assessment/Plan: Patient seen and examined, rash is lightly better. Patient has some hemoptysis, he does c/o cough and denies any sob. Vital Signs Date Time Temp Pulse Resp B/P Pulse O2 O2 Flow FiO2 Ox Delivery Rate 08/25 1112 Room Air Room Air 08/25 0650 98.6 100 20 140/88 94 Room Air 08/24 2238 98.0 86 20 138/60 95 Room Air 08/24 1450 98.1 93 20 140/70 93 08/24 1147 98.5 90 20 120/80 96 on exam; aox3, nad. cv; s1,s2, rrr. resp; clear. abd; soft, nt, bs+ ext; no edema Laboratory Tests 08/25 0615 Chemistry Sodium (137 - 145 mmol/L) 134 L Potassium (3.5 - 5.1 mmol/L) 5.3 H Chloride (98 - 107 mmol/L) 106 Carbon Dioxide (22 - 30 mmol/L) 22 Anion Gap (5 - 16) 6 BUN (9 - 20 mg/dL) 29 H Creatinine (0.7 - 1.2 mg/dL) 1.0 Estimated GFR (>60 ml/min) > 60 BUN/Creatinine Ratio (7 - 25 %) 29.0 H Coagulation PT (9.4 - 12.5 SEC) 18.9 H INR (0.90 - 1.17) 1.81 H Hematology CBC w Diff NO MAN DIFF REQ WBC (4.8 - 10.8 /CUMM) 8.6 RBC (4.70 - 6.10 /CUMM) 3.80 L Hgb (14.0 - 18.0 G/DL) 11.4 L Hct (42 - 52 %) 34.1 L MCV (80.0 - 94.0 FL) 89.7 MCH (27.0 - 31.0 PG) 30.2 RDW (11.5 - 14.5 %) 13.6 Plt Count (130 - 400 /CUMM) 109 L MPV (7.4 - 10.4 FL) 9.0 Gran % (42.2 - 75.2 %) 73.7 Lymphocytes % (20.5 - 51.1 %) 12.3 L Monocytes % (1.7 - 9.3 %) 12.8 H Eosinophils % (0 - 5 %) 0.9 Basophils % (0.0 - 2.0 %) 0.3 Absolute Granulocytes (1.4 - 6.5 /CUMM) 6.4 Absolute Lymphocytes (1.2 - 3.4 /CUMM) 1.1 L Absolute Monocytes (0.10 - 0.60 /CUMM) 1.1 H Absolute Eosinophils (0.0 - 0.7 /CUMM) 0.1 Absolute Basophils (0.0 - 0.2 /CUMM) 0 PUBS MCHC (33.0 - 37.0 G/DL) 33.6 03/01 1547 Coagulation PT (9.4 - 12.5 SEC) 23.1 H INR (0.90 - 1.17) 2.22 H Fibrinogen Activity (200 - 393 MG/DL) 417 H Fibrin Degrad Products (< 10 ug/ml) >10 but < 40 ug/ml H D-Dimer (70 - 232 ng/ml) 1603 H A/P; 71 y/o M with pmh sig for hypertension, CAD status post stent placement, anemia, varicose veins, and a recent admission to for RLE venous insufficiency and bleeding varicose veins with acute blood loss anemia requiring 2 units of PRBC, now admitted with worsening lower extremity rash which is now extending to other parts of the body. There is a question of vasculitis versus drug rash. Patient also had acute renal failure with a question of AIN but does not have eosinophilia. His lower extremity Doppler ultrasound is negative for DVT. He has a high C-reactive protein as well as moderately high ESR. This morning he obtained pulmonology consult for this hemoptysis. His MARTIN is negative, his complement levels as well as ANCA is pending. His hepatitis and HIV screen is negative. Appreciate infectious disease input. No antibiotics were recommended. Patient to get skin biopsy today. No steroids were recommended Continue all current medications. Will hold off on any topical steroids to the patient gets biopsy. Will dose Coumadin after his skin biopsy.
[2016-08-25 06:50] VITALS: BP 140/88
[2016-08-25 08:06] LABS: ABSOLUTE BASOPHIL COUNT 0 /CUMM (0.0-0.2); ABSOLUTE EOSINOPHIL COUNT 0.1 /CUMM (0.0-0.7); ABSOLUTE GRANULOCYTE CT 6.4 /CUMM (1.4-6.5); ABSOLUTE LYMPH COUNT 1.1 /CUMM (1.2-3.4); ABSOLUTE MONOCYTE COUNT 1.1 /CUMM (0.10-0.60); BASOPHIL % 0.3 % (0.0-2.0); EOSINOPHIL % 0.9 % (0-5); GRANULOCYTE % 73.7 % (42.2-75.2); HEMATOCRIT 34.1 % (42-52); MEAN CORPUSCULAR HGB 30.2 PG (27.0-31.0); MEAN CORPUSCULAR HGB CONC 33.6 G/DL (33.0-37.0); MEAN CORPUSCULAR VOLUME 89.7 FL (80.0-94.0); PLATELET COUNT 109 /CUMM (130-400); RBC DISTRIBUTION WIDTH 13.6 % (11.5-14.5)
--- NOTE | 2016-08-25 08:13 | PN- Rheumatology ---
Subjective Subjective: The patient has no complaints. Specifically no myalgias or arthralgias. He has been afebrile. Objective Vital Signs and I&Os Vital Signs Date Time Temp Pulse Resp B/P Pulse O2 O2 Flow FiO2 Ox Delivery Rate 08/25 0650 98.6 100 20 140/88 94 Room Air 08/24 2238 98.0 86 20 138/60 95 Room Air 08/24 1450 98.1 93 20 140/70 93 03 1147 98.5 90 20 120/80 96 08/24 1055 101 144/80 Intake & Output 08/25 1600 08/25 0808/25 0000 08/24 1600 08/24 0800 08/24 0000 Intake Total 480 200 800 625 Output Total 200 525 250 Balance 280 200 800 100 -250 Intake, IV 625 Intake, Oral 480 200 800 0 Number 0 Bowel Movements Output, Urine 200 525 250 Patient 200 lb 200 lb Weight Physical Exam: He still has a diffuse petechial rash over his entire body except his face. Right lower extremity is still mildly edematous with a discolored confluent ecchymotic area in his lower leg compatible with his recent hemorrhage. There is no other signs of a cutaneous vasculitis in his palms or periungual areas Labs show his creatinine is down to 1.1. Hematocrit 33.7 with a normal white count. A repeat urinalysis is not done. Current Medications: Current Medications Sig/Dagoberto Start time Last Medication Dose Route Stop Time Status Admin Acetaminophen 650 MG Q6P PRN 08/23 2345 AC PO Aspirin 81 MG DAILY 08/24 1000 AC 08/24 PO 1055 Folic Acid 1 MG DAILY 08/24 1000 AC 08/24 PO 1055 Lorazepam 0 Q1P PRN 08/24 2345 AC IV Metoprolol Tartrate 50 MG DAILY 08/24 1000 AC 08/24 PO 1055 Multivitamins 1 TAB DAILY 08/24 1000 AC 08/24 PO 1055 Patient Medication 1 ED .STK-MED ONE 08/24 1407 DC Teaching ED 08/24 1408 Thiamine HCl 100 MG DAILY 08/24 1000 AC 08/24 PO 1055 Warfarin Sodium 5 MG .STK-MED ONE 08/24 1833 DC PO 08/24 1834 Warfarin Sodium 2.5 MG COUMADIN 1700 ONE 08/24 1815 DC 08/24 PO 08/24 181 1837 Assessment/Plan Assessment: Again this picture is much more compatible with a allergic reaction rather than a true systemic vasculitis. His ANCA is not back yet. The modest elevation of his sedimentation rate at 36 is certainly nonspecific Plan: Again I see no role for steroids at this point.
[2016-08-25 08:20] LABS: PT 18.9 SEC (9.4-12.5)
--- NOTE | 2016-08-25 08:38 | PN- Wound Care ---
Subjective Subjective: Patient feels well continues to have lower extremity edema with his legs dependent infectious disease and rheumatology input noted. Objective Vital Signs and I&Os Vital Signs Result Date Time Pulse Ox 94 08/25 0650 B/P 140/88 08/25 0650 O2 Delivery Room Air 08/25 0650 Temp 98.6 08/25 0650 Pulse 100 08/25 0650 Resp 20 08/25 0650 Intake & Output 08/25 0000 08/24 1600 08/24 0800 Intake Total 200 800 625 Output Total 525 Balance 200 800 100 Intake, IV 625 Intake, Oral 200 800 0 Number 0 Bowel Movements Output, Urine 525 Patient 200 lb Weight Right lower extremity ulcer remains unchanged with dry blood and eschar present. Still significant right lower extremity erythema and edema Impression/Plan Impression/Plan Impression/Plan: 71-year-old gentleman with chronic venous insufficiency venous stasis ulcer admitted with acute kidney injury and diffuse rash of uncertain significance but of concern for possible vasculitis either allergic or leukocytoclastic. His wound requires wound cleansing and then moist wound care daily with either Adaptic or Xeroform and leg elevation while in bed. Dermatology evaluation for consideration of punch biopsy would be appropriate. Patient would benefit from aggressive leg elevation daily wound cleansing to remove dried blood and cover with moist dressing such as Adaptic or Xeroform
[2016-08-25 10:01] LABS: WHITE BLOOD CELL COUNT 8.6 /CUMM (4.8-10.8)
--- NOTE | 2016-08-25 10:57 | Cons- Pulmonary ---
General Information and HPI Consulting Request Date of Consult: 08/25/16 Requested By: Dr. Leblanc Reason for Consult: Hemoptysis Source of Information: patient, old records Exam Limitations: no limitations History of Present Illness: The patient is a 71-year-old male, long nonsmoker, with a history significant for atrial fibrillation on Coumadin, coronary artery disease, chronic venous stasis, and varicose veins. The patient was hospitalized 3 weeks ago following trauma to his right lower extremity resulting in significant bleeding, requiring 2 units of packed red blood cells. The patient has had discomfort and discoloration of the right leg noting he was taking Lasix due to lower extremity swelling. One week prior to admission, the patient noticed a colitis petechial rash with no itching, fevers or chills. The day of admission, the patient noticed the rash came worse and advanced from his lower extremities to his arms and abdomen. He claims he was using talcum powder prior to the rash worsening. Again, there is no history of pruritus. He denies taking any new medications. He has been afebrile since admission noting he has no leukocytosis. A chest x- ray was negative. Doppler of the right lower extremity was negative. He has been followed off antibiotics since admission. He has been evaluated by multiple consultants including ID, hematology and rheumatology. So far, the patient's rheumatologic workup has been negative although is pending. The patient's sedimentation rate is mildly elevated which is nonspecific. She, the patient has been experiencing an increased cough. He has had 3 separate episodes where he coughed up mucus that had changed of brownish/redish stranding in it. There is no report of kailey hemoptysis. He has not coughed up bright red blood and he has not coughed up blood without being mixed in mucus. He has a history of epistaxis but denies this at present. He reports he has had a similar episode in the past but does not have a history of chronic hemoptysis. 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 He reports wearing a mask when he is being exposed to any small particulate matter. He denies any recent work exposures. Allergies/Medications Allergies: Coded Allergies: NO KNOWN ALLERGIES (08/23/16) Home Med List: Aspirin (Aspirin*) 81 MG TAB.CHEW 81 MG PO DAILY HEART HEALTH (Reported) Metoprolol Tartrate 50 MG TABLET 1 TAB PO DAILY AFIB (Reported) Multivit-Min/FA/Lycopen/Lutein (Centrum Silver Men Tablet) 300 MCG-600 MCG-300 MCG TABLET 1 TAB PO DAILY SUPPLEMENT (Reported) Warfarin Sodium 5 MG TABLET 0.5 TAB PO 1700 BLOOD THINNER (Reported) Please check your INR regularly to keep in between 2-3. Warfarin Sodium 5 MG TABLET 1 TAB PO 1700 BLOOD THINNER (Reported) Please check your INR regularly to keep it in between 2-3. Review of Systems Review of Systems Constitutional: Denies: chills, diaphoresis, fever, malaise, weakness, unexplained weight loss. EENTM: Denies: no symptoms. Cardiovascular: Denies: no symptoms. Respiratory: Reports: cough. Denies: orthopnea, short of breath, sputum production, stridor, wheezing. GI: Reports: diarrhea (several days ago, now resolved). Denies: melena, bloody stool, vomiting. Genitourinary: Denies: no symptoms. Skin: Reports: change in skin color. 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 child Services at Home: None Primary Language: Macedonian Smoking Status: Never Smoked ETOH Use: occasional use Illicit Drug Use: denies illicit drug use Functional Ability ADLs Independent: dressing, eating, toileting, bathing. Ambulation: independent IADLs Independent: shopping, housework, finances, food prep, telephone, transportation , medication admin. 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 Neck: normal inspection, supple Respiratory: normal breath sounds, no respiratory distress, lungs clear Cardiovascular: regular rate/rhythm (S1 and S2 heard) Gastrointestinal: normal bowel sounds, soft, non-tender Extremities: right lower extremity ecchymosis with a dressing in place Skin: diffuse petechial rash over the lower extremities, anterior abdomen, and forearms Last 48 Hrs of Labs/Hemal: Laboratory Tests 08/25/16 0615: Anion Gap 6, Estimated GFR > 60, BUN/Creatinine Ratio 29.0 H, PT 18.9 H, INR 1.81 H, CBC w Diff NO MAN DIFF REQ, RBC 3.80 L, MCV 89.7, MCH 30.2, RDW 13.6, MPV 9.0, Gran % 73.7, Lymphocytes % 12.3 L, Monocytes % 12.8 H, Eosinophils % 0.9, Basophils % 0.3, Absolute Granulocytes 6.4, Absolute Lymphocytes 1.1 L, Absolute Monocytes 1.1 H, Absolute Eosinophils 0.1, Absolute Basophils 0, PUBS MCHC 33.6 08/24/16 1547: PT 23.1 H, INR 2.22 H, Fibrinogen Activity 417 H, Fibrin Degrad Products >10 but < 40 ug/ml H, D-Dimer 1603 H 08/24/16 0817: C-React Prot High Sens Cancelled, ESR Westergren Cancelled 08/24/16 0640: MARTIN Titer ND, Anti-Nuclear Antibody NEG 1:40 IFA ASSAY 08/24/16 0640: Anion Gap 5, Estimated GFR > 60, BUN/Creatinine Ratio 21.8, C-Reactive Prot, Quant 5.9 H, C-React Prot High Sens > 15.0 H, CBC w Diff NO MAN DIFF REQ, RBC 3.74 L, MCV 90.1, MCH 30.4, RDW 13.8, MPV 8.6, Gran % 69.6, Lymphocytes % 16.9 L, Monocytes % 12.5 H, Eosinophils % 0.7, Basophils % 0.3, Absolute Granulocytes 5.2, Absolute Lymphocytes 1.3, Absolute Monocytes 0.9 H, Absolute Eosinophils 0.1, Absolute Basophils 0, PUBS MCHC 33.7, ESR Westergren 36 H, ANCA Pending, Complement C3 Pending, Complement C4 Pending, Hepatitis A IgM Ab NONREACTIVE, Hep Bs Antigen NONREACTIVE, Hep B Core IgM Ab Conf NONREACTIVE, Hepatitis C Antibody NONREACTIVE, HIV 1&2 Ab Western Blot NONREACTIVE 08/24/16 0130: Fibrinogen Activity 407 H, Fibrin Degrad Products >10 but < 40 ug/ml H, D- Dimer 1789 H 08/23/16 1824: Urinalysis MOD H, Urine Color YEL, Urine Clarity HAZY H, Urine pH 5.5, Ur Specific [place] >= 1.030, Urine Protein 100 H, Urine Ketones TRACE H, Urine Nitrite NEG, Urine Bilirubin NEG@ICTO, Urine Urobilinogen 0.2, Ur Leukocyte Esterase TRACE H, Ur Microscopic SEDIMENT EXAMINED, Urine RBC 15-25 H, Urine WBC 5-10 H, Urine Mucus FEW, Urine Hemoglobin LARGE H, Urine Glucose NEG 08/23/16 1651: Anion Gap 11, Estimated GFR 40 L, BUN/Creatinine Ratio 15.9, Glucose 102 H, Calcium 8.7, Total Bilirubin 1.2, AST 27, ALT 24, Alkaline Phosphatase 88, Total Protein 6.7, Albumin 3.2 L, Globulin 3.5, Albumin/Globulin Ratio 0.9 L, PT 25.0 H, INR 2.40 H, APTT 34, CBC w Diff NO MAN DIFF REQ, RBC 4.22 L, MCV 90.0 , MCH 29.8, RDW 13.7, MPV 8.1, Gran % 72.3, Lymphocytes % 12.9 L, Monocytes % 12.6 H, Eosinophils % 1.0, Basophils % 1.2, Absolute Granulocytes 6.7 H, Segmented Neutrophils 69, Band Neutrophils 2, Absolute Lymphocytes 1.2, Lymphocytes 20 L, Monocytes 8, Absolute Monocytes 1.2 H, Eosinophils 1, Absolute Eosinophils 0.1, Absolute Basophils 0.1, PUBS MCHC 33.1 Diagnostic Data CXR Results No acute cardiopulmonary findings Assessment/Plan Impression/Plan: The patient is a 71-year-old male with a history of atrial fibrillation, on Coumadin with a therapeutic INR, and lower extremity varicosities. He has a diffuse petechial rash which is thought to be more related to an allergy as opposed to an underlying process such as vasculitis, although the complete workup is pending. There is no evidence of infection. The patient has had 3 episodes of blood-tinged sputum however he has not had any episodes of kailey hemoptysis. He is a lifelong nonsmoker. It seems unlikely, not impossible that the patient has pulmonary sequela of a vasculitis. He has mild renal insufficiency however given his current laboratory findings it would seem unusual he would have a pulmonary renal syndrome. It is not clear to me that he has significant occupational exposure which could induce an inflammatory lung process with hemoptysis. Recommendations: * For complete evaluation, I would check a noncontrast CT scan of the chest to rule out interstitial lung disease. Please do high resolution cuts for closer evaluation. * If the patient does have increased kailey hemoptysis, he will need reversal of his INR and bronchoscopy. * Please call pulmonary if the patient does have any evidence of increasing hemoptysis. * Thank you for the consult, I will follow the patient along with you and provide further recommendations as necessary. Please call with any questions. Consult Acknowledgment - Thank you for your consult request.
--- NOTE | 2016-08-25 13:21 | CT SCAN REPORT ---
EXAMINATION: CT CHEST WITHOUT CONTRAST CLINICAL INFORMATION: Cough with hemoptysis. Rash. Evaluate for vasculitis, possible Yeison's. COMPARISON: Chest x-ray 08/23/2016. CT of the abdomen and pelvis 04/10/2009. TECHNIQUE: Multidetector volumetric CT imaging of the chest was done. Axial MIP volume rendering provided. Sagittal and coronal reformatted images were obtained. DLP: 731.90 mGy-cm FINDINGS: SIGN BUILDER: Unremarkable. LUNGS: There are ill-defined reticular and nodular opacities in the posterior aspects of both lungs, including 5 mm nodules in the right upper lobe (series 4, image 172) and 5 mm nodule left upper lobe (series 4, image 237). There is mild thickening of the major fissures bilaterally with some vague nodularity of the fissures as well. MEDIASTINUM: There is no mediastinal or hilar adenopathy. There are scattered coronary artery calcifications. The thyroid gland is unremarkable. PLEURA: There are small bilateral pleural effusions. There is chronic elevation of the right hemidiaphragm. AXILLA: No lymphadenopathy. UPPER ABDOMEN: Unremarkable. OSSEOUS STRUCTURES: There is moderate multilevel spondylosis. There are no suspicious bone lesions. IMPRESSION: 1. Ill-defined reticular and nodular opacities in the posterior aspects of both lungs. The reticular opacities could represent dependent atelectasis. The nodules are nonspecific. Various management parameters for solitary pulmonary nodules are in the literature. According to the Fleischner Society, recommendations for pulmonary nodules are as follows: Nodule size < or = to 4 mm in LOW RISK PATIENTS: No follow up needed. Nodule size < or = to 4 mm in HIGH RISK PATIENTS: Follow up CT at 12 months; if unchanged, no further follow up. Nodule size > 4-6 mm in LOW RISK PATIENTS: Follow up CT at 12 months; if unchanged, no further follow up. Nodule size > 4-6 mm in HIGH RISK PATIENTS: Initial follow up CT at 6-12 months, then at 18-24 months if no change. 2. Small bilateral pleural effusions.
[2016-08-25 14:41] VITALS: BP 140/84
--- NOTE | 2016-08-25 16:08 | PN- Infect Dx ---
Subjective Subjective: Afebrile. He does note a cough with hemoptysis this morning, which he has had before. He has decreased discomfort in the right leg. Objective Last 24 Hrs of Vital Signs/I&O Vital Signs Date Time Temp Pulse Resp B/P Pulse O2 O2 Flow FiO2 Ox Delivery Rate 08/25 1441 98.0 90 20 140/84 93 Room Air 08/25 1112 Room Air Room Air 08/25 0800 Room Air 08/25 0650 98.6 100 20 140/88 94 Room Air 08/24 2238 98.0 86 20 138/60 95 Room Air Intake & Output 08/25 1600 08/25 0800 08/25 0000 Intake Total 800 480 200 Output Total 200 Balance 800 280 200 Intake, Oral 800 480 200 Output, Urine 200 Physical Exam Other Physical Findings: He appears comfortable in no acute distress Skin diffuse purpuric rash, with coalescence of his petechial lesions Lungs scattered expiratory wheezes Extremities right leg ecchymosis, with slight tenderness and persistent edema Results Last 24 Hours of Lab Results: Laboratory Tests 08/25 0615 Chemistry Sodium (137 - 145 mmol/L) 134 L Potassium (3.5 - 5.1 mmol/L) 5.3 H Chloride (98 - 107 mmol/L) 106 Carbon Dioxide (22 - 30 mmol/L) 22 Anion Gap (5 - 16) 6 BUN (9 - 20 mg/dL) 29 H Creatinine (0.7 - 1.2 mg/dL) 1.0 Estimated GFR (>60 ml/min) > 60 BUN/Creatinine Ratio (7 - 25 %) 29.0 H Coagulation PT (9.4 - 12.5 SEC) 18.9 H INR (0.90 - 1.17) 1.81 H Hematology CBC w Diff NO MAN DIFF REQ WBC (4.8 - 10.8 /CUMM) 8.6 RBC (4.70 - 6.10 /CUMM) 3.80 L Hgb (14.0 - 18.0 G/DL) 11.4 L Hct (42 - 52 %) 34.1 L MCV (80.0 - 94.0 FL) 89.7 MCH (27.0 - 31.0 PG) 30.2 RDW (11.5 - 14.5 %) 13.6 Plt Count (130 - 400 /CUMM) 109 L MPV (7.4 - 10.4 FL) 9.0 Gran % (42.2 - 75.2 %) 73.7 Lymphocytes % (20.5 - 51.1 %) 12.3 L Monocytes % (1.7 - 9.3 %) 12.8 H Eosinophils % (0 - 5 %) 0.9 Basophils % (0.0 - 2.0 %) 0.3 Absolute Granulocytes (1.4 - 6.5 /CUMM) 6.4 Absolute Lymphocytes (1.2 - 3.4 /CUMM) 1.1 L Absolute Monocytes (0.10 - 0.60 /CUMM) 1.1 H Absolute Eosinophils (0.0 - 0.7 /CUMM) 0.1 Absolute Basophils (0.0 - 0.2 /CUMM) 0 PUBS MCHC (33.0 - 37.0 G/DL) 33.6 Last 24 Hours of Hemal Results: No cultures Recent Imaging Studies: CT of the chest revealed ill-defined reticular nodular opacities in the posterior aspects of both lungs Assessment/Plan Impression: Diffuse rash, initially petechial and now appearing more purpuric, with etiology unclear, but suspect the most likely explanation would be a new medication, perhaps the Lasix, which he took several days prior to admission. His right lower extremity ecchymosis is resolving with no evidence of infection, and he remains afebrile with white blood cell count normal. The etiology of his hemoptysis is unclear, but may be related to his Coumadin. Suggestion: 1. Further evaluation of his rash per Medicine 2. Further evaluation of his hemoptysis per Pulmonary 3. Continue to follow off antibiotics
[2016-08-25 23:30] VITALS: BP 140/80
--- NOTE | 2016-08-26 06:57 | PN- Housestaff ---
JENIFFER BAKER,RUBIO 08/26/16 0656: Subjective Follow-up For: Petechial, non pruritic rash CHARLES Subjective: I saw and examined the patient today morning. He had cough through out the night, producing bright red sputum with blood. Cant describe completely. Otherwise feels fine. Underwent skin biopsy yesterday. feels rash is getting better. Also reports arthritic pain in the left knee. Review of Systems Constitutional: Reports: see HPI. Comments: ROS negative except the above. Objective Last 24 Hrs of Vital Signs/I&O Vital Signs Date Time Temp Pulse Resp B/P Pulse O2 O2 Flow FiO2 Ox Delivery Rate 08/25 2330 97.8 106 20 140/80 95 Room Air 08/25 1441 98.0 90 20 140/84 93 Room Air 08/25 1112 Room Air Room Air 08/25 0800 Room Air Intake & Output 08/26 0800 08/26 0000 08/25 1600 Intake Total 100 800 Output Total Balance 100 800 Intake, Oral 100 800 Physical Exam General Appearance: Alert, Oriented X3, Cooperative Skin: No Breakdown, Petechial rash - improving. HEENT: Atraumatic, PERRLA Neck: Supple Cardiovascular: Normal S1, Normal S2, irregular Lungs: Normal Air Movement Abdomen: Normal Bowel Sounds, Soft, No Tenderness Neurological: Normal Speech, Normal Tone Extremities: No Clubbing, No Cyanosis, significant rash, wound on the medial side of right leg Vascular: Normal Pulses Current Medications: Current Medications Sig/Dagoberto Start time Last Medication Dose Route Stop Time Status Admin Acetaminophen 650 MG Q6P PRN 08/23 2345 AC PO Aspirin 81 MG DAILY 08/24 1000 AC 08/25 PO 0917 Benzonatate 100 MG TID PRN 08/25 1115 AC 08/25 PO 1742 Folic Acid 1 MG DAILY 08/24 1000 AC 08/25 PO 0917 Lorazepam 0 Q1P PRN 08/24 2345 AC IV Metoprolol Tartrate 50 MG DAILY 08/24 1000 AC 08/25 PO 0917 Multivitamins 1 TAB DAILY 08/24 1000 AC 08/25 PO 0917 Thiamine HCl 100 MG DAILY 08/24 1000 AC 08/25 PO 0917 Warfarin Sodium 5 MG COUMADIN 1700 ONE 08/25 1900 DC 08/25 PO 08/25 1901 2044 Lines/Diet/Fluids Lines: peripheral lines Assessment/Plan Assessment: Patient is a 71-year-old male with past medical history significant for atrial fibrillation on Coumadin, hypertension, CAD status post stents, recently admitted 3 weeks ago after significant bleeding from varicose vein requiring 2 units transfusion with persistent swelling, discoloration for which she self administered himself with Lasix twice last week. He was admitted yesterday with worsening lower right leg pain and acute development of diffusely spreading petechial rash. Rash started on the lower extremities and started spreading all over to the upper extremities abdomen sparing pack and face. At admission he is afebrile with stable vitals. Labs significant for normal white count with BUN/creatinine 27/1.7, normal liver enzymes, INR 2.4 Fibrinogen activity 417, February nutrition products greater than 10, d-dimer 1789 UAs hazy with trace ketones, white count 5-10, RBC 15-25, leukocyte esterase trace. Hepatitis panel is negative, HIV nonreactive, antinuclear antibody negative, MARTIN and complement levels are negative. His ESR is 36, C-reactive protein 5.9. Venous Doppler negative for any deep vein thrombosis X-ray negative for involvement of bone Plan Admitted to [facility] med floor Rapidly proliferating Purpuric/petechial rash with dark urine and hemoptysis * At this point vascular disease is often primary differential, with other differentials including drug-induced, allergic, infectious. * Derm consulted - suggesting skin punch biopsy * Had cough with pink to reddish sputum - pulm consulted and Chest CT without contrast suggested which revealed pulmonary nodules (not significant). * Skin biopsy performed yesterday, awaiting pathology results. 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 Leukocytosis * patient had white count of 11 with cough throught out the night * He also reports increased blood with sputum - Discontinued coumadin and Aspirin * Sputum sent for cytology and culture * pancultures are requested, will follow up. Right lower extremity ulcer Wound consult placed - suggesting wound cleansing and then moist wound care daily with either Adaptic or Xeroform and leg elevation while in bed. CHARLES * BUN/creatinine - 27/1.7 at admission * Cretinine is 1.3 today with K of 5.9 * Nephro consulted * EKG dosent show any acute changes - Kayexalate given. * Requested ANCA (MPO/PR3), Urine lytes, osmolalities, cryoglobulins. * We will recheck BEP tomorrow Atrial fibrillation * On Coumadin at home - discontinued in the setting of hemoptysis. Hypertension * His home medication metoprolol 50 mg continued CAD status post stents * Discontinued aspirin DVT prophylaxis * INR - 2.4 CODE STATUS * DNR/DNI Problem List: 1. Bleeding from varicose veins of right lower extremity 2. Atrial fibrillation 3. Acute kidney injury 4. Petechial rash Pain Ratin Pain Location: right lower extremity Pain Goal: Pain 4 or less Pain Plan: Tylenol PRN Tomorrow's Labs & Rationales: CBC to monitor white count as off antibiotics. BEP to monitor Cr in the setting of vasculitis picture. Consulting Request: Consulting Specialty: Hematology/Oncology SHAAN CALLE MD 08/26/16 1308: Attending MD Review Statement Attending Statement Attending MD Statement: examined this patient, discuss w/resident/PA/[employer] BUSINESS SEGMENT LEADER, agreed w/resident/PA/[employer] BUSINESS SEGMENT LEADER, reviewed EMR data (avail), discussed with nursing, discussed with case mgmt, amended to note Attending Assessment/Plan: Patient seen and examined, not feeling well. now he's feeling very weak. Claims that his legs are stiff especially his left knee. He still coughing and has some wheezing. Creatinine was worse today. Skin rash looks the same. Vital Signs Date Time Temp Pulse Resp B/P Pulse O2 O2 Flow FiO2 Ox Delivery Rate 08/26 1027 140/90 08/26 0800 Room Air 08/26 0741 98.0 102 20 148/92 94 Room Air 08/25 2330 97.8 106 20 140/80 95 Room Air 08/25 1441 98.0 90 20 140/84 93 Room Air on exam; aox3, nad. cv; s1,s2, rrr. resp; mild exp wheeze. abd; soft, nt, bs+ ext; no edema. skin; macular non prutic rash on b/l lower extremities and hands. Laboratory Tests 08/26 08/26 0833 0730 Chemistry Sodium (137 - 145 mmol/L) 131 L Potassium (3.5 - 5.1 mmol/L) 5.9 H Chloride (98 - 107 mmol/L) 103 Carbon Dioxide (22 - 30 mmol/L) 22 Anion Gap (5 - 16) 6 BUN (9 - 20 mg/dL) 39 H Creatinine (0.7 - 1.2 mg/dL) 1.3 H Estimated GFR (>60 ml/min) 54 L BUN/Creatinine Ratio (7 - 25 %) 30.0 H Coagulation PT (9.4 - 12.5 SEC) 22.3 H INR (0.90 - 1.17) 2.14 H Hematology CBC w Diff NO MAN DIFF REQ WBC (4.8 - 10.8 /CUMM) 11.0 H RBC (4.70 - 6.10 /CUMM) 4.22 L Hgb (14.0 - 18.0 G/DL) 12.6 L Hct (42 - 52 %) 37.6 L MCV (80.0 - 94.0 FL) 89.2 MCH (27.0 - 31.0 PG) 29.8 RDW (11.5 - 14.5 %) 13.5 Plt Count (130 - 400 /CUMM) 146 MPV (7.4 - 10.4 FL) 8.4 Gran % (42.2 - 75.2 %) 78.9 H Lymphocytes % (20.5 - 51.1 %) 6.7 L Monocytes % (1.7 - 9.3 %) 14.4 H Eosinophils % (0 - 5 %) 0 Basophils % (0.0 - 2.0 %) 0 L Absolute Granulocytes (1.4 - 6.5 /CUMM) 8.7 H Absolute Lymphocytes (1.2 - 3.4 /CUMM) 0.7 L Absolute Monocytes (0.10 - 0.60 /CUMM) 1.6 H Absolute Eosinophils (0.0 - 0.7 /CUMM) 0 Absolute Basophils (0.0 - 0.2 /CUMM) 0 PUBS MCHC (33.0 - 37.0 G/DL) 33.4 A/P; 71 y/o M with pmh sig for hypertension, CAD status post stent placement, anemia, varicose veins, and a recent admission to for RLE venous insufficiency and bleeding varicose veins with acute blood loss anemia requiring 2 units of PRBC, now admitted with worsening lower extremity rash which is now extending to other parts of the body. There is a question of vasculitis versus drug rash. Has high CRP and moderately elevated ESR. ANCA negative and complement levels are normal. Had improvement in creatinine from last 2 days, today his creatinine has worsened. He is also hyperkalemic. EKG obtained does not show any significant acute changes. At this point patient is status post skin biopsy. Awaiting results. We have consulted nephrology. Appreciate their input. Please follow further recommendations. Patient continues to have some hemoptysis. As the pulmonology, if hemoptysis increases then pulmonology should because right away. Patient might need bronchoscopy. No steroids are administered yet. Patient has been watched off of antibiotics as there is no evidence of active infection. His INR is therapeutic today.
--- NOTE | 2016-08-26 07:07 | PN- Hematology ---
Subjective Subjective: Patient complaining of cough with occasional hemoptysis, patient denies chest pain Review of Systems: 12 point review of systems unchanged Objective Vital Signs and I&Os Vital Signs Date Time Temp Pulse Resp B/P Pulse O2 O2 Flow FiO2 Ox Delivery Rate 08/25 2330 97.8 106 20 140/80 95 Room Air 08/25 1441 98.0 90 20 140/84 93 Room Air 08/25 1112 Room Air Room Air 08/25 0800 Room Air Intake & Output 08/26 0800 08/26 0000 08/25 1600 08/25 0800 08/25 0000 08/24 1600 Intake Total 100 800 480 200 800 Output Total 200 Balance 100 800 280 200 800 Intake, Oral 100 800 480 200 800 Output, Urine 200 Patient 200 lb Weight Gen.: in NAD ENT: Sclera anicteric Chest: Normal respiratory effort, decreased breath sounds Cor: RRR, no extra sounds Abdomen: Soft, bowel sounds present, no tenderness, no rebound Extremities: Without clubbing, cyanosis, or asymmetric edema Neurology: Alert and oriented 3, no gross deficit Skin: Intense rash unchanged Current Medications: Current Medications Sig/Dagoberto Start time Last Medication Dose Route Stop Time Status Admin Acetaminophen 650 MG Q6P PRN 08/23 2345 AC PO Aspirin 81 MG DAILY 08/24 1000 AC 08/25 PO 0917 Benzonatate 100 MG TID PRN 08/25 1115 AC 08/25 PO 1742 Folic Acid 1 MG DAILY 08/24 1000 AC 08/25 PO 0917 Lorazepam 0 Q1P PRN 08/24 2345 AC IV Metoprolol Tartrate 50 MG DAILY 08/24 1000 AC 08/25 PO 0917 Multivitamins 1 TAB DAILY 08/24 1000 AC 08/25 PO 0917 Thiamine HCl 100 MG DAILY 08/24 1000 AC 08/25 PO 0917 Warfarin Sodium 5 MG COUMADIN 1700 ONE 08/25 1900 DC 08/25 PO 08/25 1901 2044 Results Last 24 Hours of Lab Results: CBC-platelet count approximately 100,000 Recent Imaging Studies: CT [id number] Assessment/Plan Assessment/Recommendations: Systemic illness-biopsy of rash pending, patient now with hemoptysis. Platelet count slightly decreased -this is more likely a result of his systemic process and the primary cause of his rash and hemoptysis Recommend- Await ANCA Pulmonary service involved Await skin biopsy
[2016-08-26 07:41] VITALS: BP 148/92
--- NOTE | 2016-08-26 08:11 | PN- Wound Care ---
Subjective Subjective: Patient continues to be evaluated for a diffuse purpuric rash now knee pain and low level hemoptysis. The right lower extremity ulcer has areas of epithelialization there is 100% red fill Objective Vital Signs and I&Os Vital Signs Result Date Time Pulse Ox 94 08/26 740 B/P 148/92 08/26 07 O2 Delivery Room Air 08/26 740 Temp 98.0 08/26 07 Pulse 102 08/26 0741 Resp 20 08/26 740 O2 Flow Rate Room Air 08/25 1112 Intake & Output 08/26 0000 08/25 1600 08/25 0800 Intake Total 100 800 480 Output Total 200 Balance 100 800 280 Intake, Oral 100 800 480 Output, Urine 200 Right lower extremity ulcer measuring approximately 4 x 2 cm as a area of iram- epithelialization there is no undermining sinus tracking. Serologies are pending. He continues to have a degree of edema Impression/Plan Impression/Plan Impression/Plan: 71-year-old gentleman with chronic venous insufficiency venous stasis ulcer admitted with acute kidney injury and diffuse rash of uncertain significance but of concern for possible vasculitis either allergic or leukocytoclastic. Skin biopsy is pending. Right lower extremity ulcer is improving. Patient needs aggressive elevation and should avoid sitting with his legs dependent. Continue daily cleansing and Xeroform and gauze over dressing
[2016-08-26 08:28] LABS: PT 22.3 SEC (9.4-12.5)
[2016-08-26 08:59] LABS: ABSOLUTE BASOPHIL COUNT 0 /CUMM (0.0-0.2); ABSOLUTE EOSINOPHIL COUNT 0 /CUMM (0.0-0.7); ABSOLUTE GRANULOCYTE CT 8.7 /CUMM (1.4-6.5); ABSOLUTE LYMPH COUNT 0.7 /CUMM (1.2-3.4); ABSOLUTE MONOCYTE COUNT 1.6 /CUMM (0.10-0.60); BASOPHIL % 0 % (0.0-2.0); EOSINOPHIL % 0 % (0-5); GRANULOCYTE % 78.9 % (42.2-75.2); HEMATOCRIT 37.6 % (42-52); MEAN CORPUSCULAR HGB 29.8 PG (27.0-31.0); MEAN CORPUSCULAR HGB CONC 33.4 G/DL (33.0-37.0); MEAN CORPUSCULAR VOLUME 89.2 FL (80.0-94.0); MEAN PLATELET VOLUME 8.4 FL (7.4-10.4); PLATELET COUNT 146 /CUMM (130-400); RBC DISTRIBUTION WIDTH 13.5 % (11.5-14.5); RED BLOOD CELL CT 4.22 /CUMM (4.70-6.10)
--- NOTE | 2016-08-26 10:46 | PN- Pulmonary ---
Subjective HPI/Critical Care Issues: The patient is awake and alert. He reports feeling more weak this morning. He has no shortness of breath but has been noted to have some wheezing. The patient continues to cough up mucus with specks of brown to reddish blood. He denies kailey hemoptysis. Nursing has not witnessed any significant hemoptysis. His rash continues to improve. Objective Current Medications: Current Medications Sig/Dagoberto Start time Last Medication Dose Route Stop Time Status Admin Acetaminophen 650 MG Q6P PRN 08/23 2345 AC PO Aspirin 81 MG DAILY 08/24 1000 DC 08/25 PO 0917 Benzonatate 100 MG TID PRN 08/25 1115 AC 08/25 PO 1742 Folic Acid 1 MG DAILY 08/24 1000 AC 08/25 PO 0917 Lorazepam 0 Q1P PRN 08/24 2345 AC IV Metoprolol Tartrate 50 MG DAILY 08/24 1000 AC 08/25 PO 0917 Multivitamins 1 TAB DAILY 08/24 1000 AC 08/25 PO 0917 Thiamine HCl 100 MG DAILY 08/24 1000 AC 08/25 PO 0917 Warfarin Sodium 5 MG COUMADIN 1700 ONE 08/25 1900 DC 08/25 PO 08/25 1901 2044 Vital Signs & I&O Last 24 Hrs of Vitals and I&O: Vital Signs Date Time Temp Pulse Resp B/P Pulse O2 O2 Flow FiO2 Ox Delivery Rate 08/26 0741 98.0 102 20 148/92 94 Room Air 08/25 2330 97.8 106 20 140/80 95 Room Air 08/25 1441 98.0 90 20 140/84 93 Room Air 08/25 1112 Room Air Room Air Intake & Output 08/26 1600 08/26 0800 08/26 0000 Intake Total 100 100 Output Total 100 Balance 0 100 Intake, Oral 100 100 Output, Urine 100 Physical Exam General Appearance: well developed/nourished, alert, awake Head: atraumatic, normal appearance Eyes: Bilateral: PERRL. Neck: normal inspection, supple Respiratory: no respiratory distress, anterior wheezes heard Cardiovascular: regular rate/rhythm (S1 and S2 heard) Gastrointestinal: normal bowel sounds, soft, non-tender Extremities: right lower extremity ecchymosis with a dressing in place Skin: diffuse petechial rash over the lower extremities, anterior abdomen, and forearms, improved over the past 24 hours Results Last 24 Hrs of Lab Results: Laboratory Tests 08/26/16 0833: CBC w Diff NO MAN DIFF REQ, RBC 4.22 L, MCV 89.2, MCH 29.8, RDW 13.5, MPV 8.4, Gran % 78.9 H, Lymphocytes % 6.7 L, Monocytes % 14.4 H, Eosinophils % 0, Basophils % 0 L, Absolute Granulocytes 8.7 H, Absolute Lymphocytes 0.7 L, Absolute Monocytes 1.6 H, Absolute Eosinophils 0, Absolute Basophils 0, PUBS MCHC 33.4 08/26/16 0730: Anion Gap 6, Estimated GFR 54 L, BUN/Creatinine Ratio 30.0 H, PT 22.3 H, INR 2.[address] Scan Findings: 1. Ill-defined reticular and nodular opacities in the posterior aspects of both lungs. The reticular opacities could represent dependent atelectasis. The nodules are nonspecific. 2. Small bilateral pleural effusions. Impression/Plan Impression/Plan Impression/Plan: The patient is a 71-year-old male with a history of atrial fibrillation, on Coumadin with a therapeutic INR, and lower extremity varicosities. He has a diffuse petechial rash which is thought to be more related to an allergy as opposed to an underlying process such as vasculitis, although the complete workup is pending. There is no obvious evidence of infection, although the patient's white blood cell count is slightly elevated at 11,000 today. The patient has had blood-tinged sputum without any episodes of kailey hemoptysis. He is a lifelong nonsmoker. 1. Hemoptysis - the patient has not had evidence of kailey hemoptysis. He has had mucus with blood tinged specks. This has not been witnessed by nursing. 2. Minimal nonspecific ground glass opacities, atelectasis. No evidence of ILD. 3. Nonspecific lung nodules which will need ongoing follow up in 3-6 months. 4. Very small bilateral effusions, not enough to tap. 5. Extensive petechial rash - etiology? Drug rash? 6. Elevated BUN/creatinine - prerenal?. 7. Hyperkalemia. 8. Mild leukocytosis. 9. Wheezing Evidence of respiratory distress. Recommendations: * No role for thoracentesis. * If the patient does have increased kailey hemoptysis, he will need reversal of his INR and bronchoscopy. * Please call pulmonary JEIMY if the patient does have any evidence of increasing hemoptysis. * The patient should cough into a specimen cup for direct visualization of the hemoptysis. * Check sputum for culture and cytology. * Consider UA, UC and blood cultures in the setting of increased leukocytosis. * Consult respiratory for nebulizer treatments as he does appear to be wheezing today. * Hyperkalemia management as per the primary team. * Discussed the plan with the primary team. A nephrology consult will be called.
--- NOTE | 2016-08-26 11:37 | Cons- Nephrology ---
General Information and HPI Consulting Request Date of Consult: 08/26/16 Requested By: SHAAN CALLE MD Reason for Consult: CHARLES, hematuria Source of Information: patient, old records Exam Limitations: no limitations History of Present Illness: Patient is a 71-year-old man with a past medical history most significant for baseline normal renal function (baseline SCr ~0.7), hypertension, coronary artery disease status post PCI, and chronic bilateral venous insufficiency who initially presented to [facility] on 08/23 with right lower extremity pain and erythema. In speaking to the patient, he says that he was in his usual state of health until a few weeks ago when a blood vessel ruptured on his right lower extremity requiring transfusion. He has had hyperpigmentation of the leg since that time. On Monday while going to the bathroom he started noticing a petechial rash developing on his lower extremities. There is no associated dark urine at this time. He did note some abdominal bloating, however no hematochezia or melena. On presentation, he was found to have a creatinine of 1.7 with a urinalysis with 15-25 RBCs and 100 mg per deciliter protein. It was initially thought that this is secondary to dehydration for which she was given intravenous fluid. Multiple services were consulted to assist with the case including rheumatology (on 08/25) who ultimately thought that this was c/w an allergic reaction and recommended against empiric steroids. Hematology was consulted to see whether or not there was any underlying hematologic/renal process - ultimately no clinical suspicion for TTP. He was seen by pulmonlogy for reported hemoptysis (actually 3 episodes of blood-tinged sputum). CT demonstrated ill-defined reticular and nodular opacities in the posterior aspects of both lungs. In terms of labs, his creatinine initially down trended to 1.1 but has since come up to 1.3. Urinalysis on 08/23 with 100 mg/dl of protein, 15-25 RBC's, 5-10 WBC's. Albumin 3.2. MARTIN neg. ANCA negative. C3 98, C4 19. HIV NR, Hep B sAg NR, Hep C Ab NR. The patient is currently on coumadin with a therapeutic INR.last aspirin was on 08/25. Of note, he says that his kids have kidney issues from having used heroin. Allergies/Medications Allergies: Coded Allergies: NO KNOWN ALLERGIES (08/23/16) Home Med List: Aspirin (Aspirin*) 81 MG TAB.CHEW 81 MG PO DAILY HEART HEALTH (Reported) Metoprolol Tartrate 50 MG TABLET 1 TAB PO DAILY AFIB (Reported) Multivit-Min/FA/Lycopen/Lutein (Centrum Silver Men Tablet) 300 MCG-600 MCG-300 MCG TABLET 1 TAB PO DAILY SUPPLEMENT (Reported) Warfarin Sodium 5 MG TABLET 0.5 TAB PO 1700 BLOOD THINNER (Reported) Please check your INR regularly to keep in between 2-3. Warfarin Sodium 5 MG TABLET 1 TAB PO 1700 BLOOD THINNER (Reported) Please check your INR regularly to keep it in between 2-3. Review of Systems Review of Systems: Complete 14 point ROS neg except as per HPI. 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 child Services at Home: None Primary Language: Nepali Smoking Status: Never Smoked ETOH Use: occasional use Illicit Drug Use: denies illicit drug use Functional Ability ADLs Independent: dressing, eating, toileting, bathing. Ambulation: independent IADLs Independent: shopping, housework, finances, food prep, telephone, transportation , medication admin. 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) Exam & Diagnostic Data Vital Signs and I&O Vital Signs Date Time Temp Pulse Resp B/P Pulse O2 O2 Flow FiO2 Ox Delivery Rate 08/26 1027 140/90 08/26 0741 98.0 102 20 148/92 94 Room Air 08/25 2330 97.8 106 20 140/80 95 Room Air 08/25 1441 98.0 90 20 140/84 93 Room Air Intake & Output 08/26 1600 08/26 0400 08/25 1600 08/25 0400 08/24 1600 08/24 0400 Intake Total 083 301 8227 200 800 625 Output Total 100 200 200 575 Balance 0 100 1080 200 600 50 Intake, IV 0 625 Intake, Oral 978 620 8397 200 800 0 Number 0 0 Bowel Movements Output, Urine 100 200 200 575 Patient 200 lb 200 lb Weight Physical Exam: Gen - OK appearing Head - NCAT Eyes - anicteric sclera Mouth - poor dentition with dentures Neck - supple CV - RRR Chest - clear anteriorly Abd - soft, nontender to palpation Upper ext - no edema Lower ext - RLE enlarged Skin - innumerrable nonblanching petechial lesions on legs - nontender but palpable, RLE fully purple/red in color Neuro - AOX3 Results Pertinent Lab Results: Laboratory Tests 08/26 08/26 0833 0730 Chemistry Sodium (137 - 145 mmol/L) 131 L Potassium (3.5 - 5.1 mmol/L) 5.9 H Chloride (98 - 107 mmol/L) 103 Carbon Dioxide (22 - 30 mmol/L) 22 Anion Gap (5 - 16) 6 BUN (9 - 20 mg/dL) 39 H Creatinine (0.7 - 1.2 mg/dL) 1.3 H Estimated GFR (>60 ml/min) 54 L BUN/Creatinine Ratio (7 - 25 %) 30.0 H Coagulation PT (9.4 - 12.5 SEC) 22.3 H INR (0.90 - 1.17) 2.14 H Hematology CBC w Diff NO MAN DIFF REQ WBC (4.8 - 10.8 /CUMM) 11.0 H RBC (4.70 - 6.10 /CUMM) 4.22 L Hgb (14.0 - 18.0 G/DL) 12.6 L Hct (42 - 52 %) 37.6 L MCV (80.0 - 94.0 FL) 89.2 MCH (27.0 - 31.0 PG) 29.8 RDW (11.5 - 14.5 %) 13.5 Plt Count (130 - 400 /CUMM) 146 MPV (7.4 - 10.4 FL) 8.4 Gran % (42.2 - 75.2 %) 78.9 H Lymphocytes % (20.5 - 51.1 %) 6.7 L Monocytes % (1.7 - 9.3 %) 14.4 H Eosinophils % (0 - 5 %) 0 Basophils % (0.0 - 2.0 %) 0 L Absolute Granulocytes (1.4 - 6.5 /CUMM) 8.7 H Absolute Lymphocytes (1.2 - 3.4 /CUMM) 0.7 L Absolute Monocytes (0.10 - 0.60 /CUMM) 1.6 H Absolute Eosinophils (0.0 - 0.7 /CUMM) 0 Absolute Basophils (0.0 - 0.2 /CUMM) 0 PUBS MCHC (33.0 - 37.0 G/DL) 33.4 03/02 0615 Chemistry Sodium (137 - 145 mmol/L) 134 L Potassium (3.5 - 5.1 mmol/L) 5.3 H Chloride (98 - 107 mmol/L) 106 Carbon Dioxide (22 - 30 mmol/L) 22 Anion Gap (5 - 16) 6 BUN (9 - 20 mg/dL) 29 H Creatinine (0.7 - 1.2 mg/dL) 1.0 Estimated GFR (>60 ml/min) > 60 BUN/Creatinine Ratio (7 - 25 %) 29.0 H Coagulation PT (9.4 - 12.5 SEC) 18.9 H INR (0.90 - 1.17) 1.81 H Hematology CBC w Diff NO MAN DIFF REQ WBC (4.8 - 10.8 /CUMM) 8.6 RBC (4.70 - 6.10 /CUMM) 3.80 L Hgb (14.0 - 18.0 G/DL) 11.4 L Hct (42 - 52 %) 34.1 L MCV (80.0 - 94.0 FL) 89.7 MCH (27.0 - 31.0 PG) 30.2 RDW (11.5 - 14.5 %) 13.6 Plt Count (130 - 400 /CUMM) 109 L MPV (7.4 - 10.4 FL) 9.0 Gran % (42.2 - 75.2 %) 73.7 Lymphocytes % (20.5 - 51.1 %) 12.3 L Monocytes % (1.7 - 9.3 %) 12.8 H Eosinophils % (0 - 5 %) 0.9 Basophils % (0.0 - 2.0 %) 0.3 Absolute Granulocytes (1.4 - 6.5 /CUMM) 6.4 Absolute Lymphocytes (1.2 - 3.4 /CUMM) 1.1 L Absolute Monocytes (0.10 - 0.60 /CUMM) 1.1 H Absolute Eosinophils (0.0 - 0.7 /CUMM) 0.1 Absolute Basophils (0.0 - 0.2 /CUMM) 0 PUBS MCHC (33.0 - 37.0 G/DL) 33.6 08/24 08/24 1547 0817 Chemistry C-React Prot High Sens Cancelled Coagulation PT (9.4 - 12.5 SEC) 23.1 H INR (0.90 - 1.17) 2.22 H Fibrinogen Activity (200 - 393 MG/DL) 417 H Fibrin Degrad Products (< 10 ug/ml) >10 but < 40 ug/ml H D-Dimer (70 - 232 ng/ml) 1603 H Hematology ESR Westergren Cancelled 08/24 08/24 0640 0640 Chemistry Sodium (137 - 145 mmol/L) 134 L Potassium (3.5 - 5.1 mmol/L) 5.0 Chloride (98 - 107 mmol/L) 106 Carbon Dioxide (22 - 30 mmol/L) 23 Anion Gap (5 - 16) 5 BUN (9 - 20 mg/dL) 24 H Creatinine (0.7 - 1.2 mg/dL) 1.1 Estimated GFR (>60 ml/min) > 60 BUN/Creatinine Ratio (7 - 25 %) 21.8 C-Reactive Prot, Quant (<1.0 mg/dL) 5.9 H C-React Prot High Sens (1.0 - 3.0 mg/L) > 15.0 H Hematology CBC w Diff NO MAN DIFF REQ WBC (4.8 - 10.8 /CUMM) 7.5 RBC (4.70 - 6.10 /CUMM) 3.74 L Hgb (14.0 - 18.0 G/DL) 11.4 L Hct (42 - 52 %) 33.7 L MCV (80.0 - 94.0 FL) 90.1 MCH (27.0 - 31.0 PG) 30.4 RDW (11.5 - 14.5 %) 13.8 Plt Count (130 - 400 /CUMM) 124 L MPV (7.4 - 10.4 FL) 8.6 Gran % (42.2 - 75.2 %) 69.6 Lymphocytes % (20.5 - 51.1 %) 16.9 L Monocytes % (1.7 - 9.3 %) 12.5 H Eosinophils % (0 - 5 %) 0.7 Basophils % (0.0 - 2.0 %) 0.3 Absolute Granulocytes (1.4 - 6.5 /CUMM) 5.2 Absolute Lymphocytes (1.2 - 3.4 /CUMM) 1.3 Absolute Monocytes (0.10 - 0.60 /CUMM) 0.9 H Absolute Eosinophils (0.0 - 0.7 /CUMM) 0.1 Absolute Basophils (0.0 - 0.2 /CUMM) 0 PUBS MCHC (33.0 - 37.0 G/DL) 33.7 ESR Westergren (0 - 10 MM) 36 H Immunology MARTIN Titer ND Anti-Nuclear Antibody (NEG,1:40) NEG 1:40 IFA ASSAY ANCA (NEGATIVE) NEGATIVE Complement C3 (90 - 180 mg/dL) 98 Complement C4 (16 - 47 mg/dL) 19 Serology Hepatitis A IgM Ab (NONREACTIVE) NONREACTIVE Hep Bs Antigen (NONREACTIVE) NONREACTIVE Hep B Core IgM Ab Conf (NONREACTIVE) NONREACTIVE Hepatitis C Antibody (NONREACTIVE) NONREACTIVE HIV 1&2 Ab Western Blot (NONREACTIVE) NONREACTIVE 08/24 0130 Coagulation Fibrinogen Activity (200 - 393 MG/DL) 407 H Fibrin Degrad Products (< 10 ug/ml) >10 but < 40 ug/ml H D-Dimer (70 - 232 ng/ml) 1789 H 08/23 08/23 1824 1651 Chemistry Sodium (137 - 145 mmol/L) 136 L Potassium (3.5 - 5.1 mmol/L) 4.7 Chloride (98 - 107 mmol/L) 105 Carbon Dioxide (22 - 30 mmol/L) 20 L Anion Gap (5 - 16) 11 BUN (9 - 20 mg/dL) 27 H Creatinine (0.7 - 1.2 mg/dL) 1.7 H Estimated GFR (>60 ml/min) 40 L BUN/Creatinine Ratio (7 - 25 %) 15.9 Glucose (65 - 99 mg/dL) 102 H Calcium (8.4 - 10.2 mg/dL) 8.7 Total Bilirubin (0.2 - 1.3 mg/dL) 1.2 AST (17 - 59 U/L) 27 ALT (21 - 72 U/L) 24 Alkaline Phosphatase (< 127 U/L) 88 Total Protein (6.3 - 8.2 g/dL) 6.7 Albumin (3.5 - 5.0 g/dL) 3.2 L Globulin (1.9 - 4.2 gm/dL) 3.5 Albumin/Globulin Ratio (1.1 - 2.2 %) 0.9 L Coagulation PT (9.4 - 12.5 SEC) 25.0 H INR (0.90 - 1.17) 2.40 H APTT (25 - 37 SEC) 34 Hematology CBC w Diff NO MAN DIFF REQ WBC (4.8 - 10.8 /CUMM) 9.3 RBC (4.70 - 6.10 /CUMM) 4.22 L Hgb (14.0 - 18.0 G/DL) 12.6 L Hct (42 - 52 %) 38.0 L MCV (80.0 - 94.0 FL) 90.0 MCH (27.0 - 31.0 PG) 29.8 RDW (11.5 - 14.5 %) 13.7 Plt Count (130 - 400 /CUMM) 150 MPV (7.4 - 10.4 FL) 8.1 Gran % (42.2 - 75.2 %) 72.3 Lymphocytes % (20.5 - 51.1 %) 12.9 L Monocytes % (1.7 - 9.3 %) 12.6 H Eosinophils % (0 - 5 %) 1.0 Basophils % (0.0 - 2.0 %) 1.2 Absolute Granulocytes (1.4 - 6.5 /CUMM) 6.7 H Segmented Neutrophils (42.2 - 75.2 %) 69 Band Neutrophils (0.0 - 5.0 %) 2 Absolute Lymphocytes (1.2 - 3.4 /CUMM) 1.2 Lymphocytes (20.5 - 51.1 %) 20 L Monocytes (1.7 - 9.3 %) 8 Absolute Monocytes (0.10 - 0.60 /CUMM) 1.2 H Eosinophils (0 - 5.0 %) 1 Absolute Eosinophils (0.0 - 0.7 /CUMM) 0.1 Absolute Basophils (0.0 - 0.2 /CUMM) 0.1 PUBS MCHC (33.0 - 37.0 G/DL) 33.1 Urines Urinalysis MOD H Urine Color (YEL,AMB,STR) YEL Urine Clarity (CLEAR) HAZY H Urine pH (5.0 - 8.0) 5.5 Ur Specific Clint (1.001 - 1.035) >= 1.030 Urine Protein (NEG,<30 MG/DL) 100 H Urine Ketones (NEG) TRACE H Urine Nitrite (NEG) NEG Urine Bilirubin (NEG) NEG@ICTO Urine Urobilinogen (0.1 - 1.0 EU/dl) 0.2 Ur Leukocyte Esterase (NEG) TRACE H Ur Microscopic SEDIMENT EXAMINED Urine RBC (0 - 5 /HPF) 15-25 H Urine WBC (0 - 2 /HPF) 5-10 H Urine Mucus (FEW,NONE) FEW Urine Hemoglobin (NEG) LARGE H Urine Glucose (N MG/DL) NEG Imaging/Other Studies: EXAM TYPE: CAT - CT CHEST WO IV CONTRAST EXAMINATION: CT CHEST WITHOUT CONTRAST CLINICAL INFORMATION: Cough with hemoptysis. Rash. Evaluate for vasculitis, possible Yeison's. COMPARISON: Chest x-ray 08/23/2016. CT of the abdomen and pelvis 04/10/2009. TECHNIQUE: Multidetector volumetric CT imaging of the chest was done. Axial MIP volume rendering provided. Sagittal and coronal reformatted images were obtained. DLP: 731.90 mGy-cm FINDINGS: SHANK SKINNER: Unremarkable. LUNGS: There are ill-defined reticular and nodular opacities in the posterior aspects of both lungs, including 5 mm nodules in the right upper lobe (series 4, image 172) and 5 mm nodule left upper lobe (series 4, image 237). There is mild thickening of the major fissures bilaterally with some vague nodularity of the fissures as well. MEDIASTINUM: There is no mediastinal or hilar adenopathy. There are scattered coronary artery calcifications. The thyroid gland is unremarkable. PLEURA: There are small bilateral pleural effusions. There is chronic elevation of the right hemidiaphragm. AXILLA: No lymphadenopathy. UPPER ABDOMEN: Unremarkable. OSSEOUS STRUCTURES: There is moderate multilevel spondylosis. There are no suspicious bone lesions. IMPRESSION: 1. Ill-defined reticular and nodular opacities in the posterior aspects of both lungs. The reticular opacities could represent dependent atelectasis. The nodules are nonspecific. Various management parameters for solitary pulmonary nodules are in the literature. According to the Fleischner Society, recommendations for pulmonary nodules are as follows: Nodule size < or = to 4 mm in LOW RISK PATIENTS: No follow up needed. Nodule size < or = to 4 mm in HIGH RISK PATIENTS: Follow up CT at 12 months; if unchanged, no further follow up. Nodule size > 4-6 mm in LOW RISK PATIENTS: Follow up CT at 12 months; if unchanged, no further follow up. Nodule size > 4-6 mm in HIGH RISK PATIENTS: Initial follow up CT at 6-12 months, then at 18-24 months if no change. 2. Small bilateral pleural effusions. Assessment/Plan Assessment/Recommendations Assessment: CHARLES - In the setting of hematuria, proteinuria, and a nonblanching petechial rash on his extremities, I am concerned that his CHARLES is 2/2 a GN (e.g. HSP with IgA renal findings). He has baseline normal renal function which was impaired on presentation and has not resolved completely with IVF and is even higher today. He underwent a skin biopsy which may help establish the diagnosis. Depending on his renal function and skin biopsy results, this may warrant empiric treatment with steroids and/or require a renal biopsy to establish the diagnosis. Given that he is on coumadin, this would have to be held and given that he got ASA yesterday, a biopsy could be done no sooner than on 09/01. For today, I would hold off on empiric steroids as we need more information. Hyperkalemia - Presumed 2/2 decreased renal excretion in the setting of CHARLES. Hyponatremia - Presumed 2/2 increased free water intake in the setting of CHARLES. He's not clearly volume depleted. Should get a glucose with his next BMP. Recommendations: -Would resend UA with microscopic analysis -Would get urine protein, urine microalbumin, and urine creatinine -Continue to hold ASA -Would send PR3 and MPO ANCA -Would send Hep C viral load and Cryoglobulin -Please get renal ultrasound -Would get BMP with glucose -UOsm, Reymundo, UK, NCl, Serum osm, TSH, AM Cortisol -K restricted diet -f/u skin biopsy results Please call [phone] with ?'s
[2016-08-26 14:08] VITALS: BP 130/70
--- NOTE | 2016-08-26 14:58 | Cons- General Surgery ---
General Information and HPI Consulting Request Date of Consult: 08/25/16 Requested By: SHAAN CALLE MD History of Present Illness: CC: Consult rash for biopsy HPI: 71-year-old nondiabetic smoker on Coumadin for A. fib history of chronic venous insufficiency coronary artery disease coronary stents known to our practice for cholecystitis and thrombosed hemorrhoid, on review he came to the ER last month on the seventh bleeding from a varicose vein, he was planning varicose vein surgery, but is been admitted now for feeling weak some nausea poor appetite and mainly increased pain and swelling and redness in his right lower leg the one that had the bleeding, and a rash developed there that seemed to then go up and spread over his body but not his head. They're requesting a biopsy. Otherwise no changes in bowel habits weight or appetite no more nausea or shortness of breath chest pain doesn't recall any unusual meals no recent flulike symptoms or fever no changes in his medications hospital day did get transfused 2 units. I've reviewed the [facility]. No history of GERD, PUD, bleeding problems, heart disease or issues with anesthesia. Past surgical history includes cholecystectomy, family history includes mother had coronary artery disease. Allergies/Medications Allergies: Coded Allergies: NO KNOWN ALLERGIES (08/23/16) Home Med List: Aspirin (Aspirin*) 81 MG TAB.CHEW 81 MG PO DAILY HEART HEALTH (Reported) Metoprolol Tartrate 50 MG TABLET 1 TAB PO DAILY AFIB (Reported) Multivit-Min/FA/Lycopen/Lutein (Centrum Silver Men Tablet) 300 MCG-600 MCG-300 MCG TABLET 1 TAB PO DAILY SUPPLEMENT (Reported) Warfarin Sodium 5 MG TABLET 0.5 TAB PO 1700 BLOOD THINNER (Reported) Please check your INR regularly to keep in between 2-3. Warfarin Sodium 5 MG TABLET 1 TAB PO 1700 BLOOD THINNER (Reported) Please check your INR regularly to keep it in between 2-3. 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 child Services at Home: None Primary Language: Montserratian Smoking Status: Never Smoked ETOH Use: occasional use Illicit Drug Use: denies illicit drug use Functional Ability ADLs Independent: dressing, eating, toileting, bathing. Ambulation: independent IADLs Independent: shopping, housework, finances, food prep, telephone, transportation , medication admin. 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) Review of Systems Review of Systems: Constitutional: No fever, sweats or weight loss ENMT: No sore throat Cardiovascular: No chest pain, palpitations or leg swelling Respiratory: No shortness of breath, cough, or sputum or dyspnea on exertion GI: No GERD or bleeding per rectum : No dysuria or hematuria Musculoskeletal: As above, no new muscle weakness, bone or joint pain Skin / Breast: No jaundice, rashes or itching Psychiatric: No history of drug or alcohol abuse no depression or anxiety Hematologic / lymphatic system: As above Exam & Diagnostic Data Vital Signs and I&O I reviewed Vital Signs Date Time Temp Pulse Resp B/P Pulse O2 O2 Flow FiO2 Ox Delivery Rate 08/25 2330 97.8 106 20 140/80 95 Room Air Intake & Output 08/25 1600 08/25 0800 08/25 0000 Intake Total 800 480 200 Output Total 200 Balance 800 280 200 Intake, Oral 800 480 200 Output, Urine 200 Physical Exam: Constitutional: pleasant, no acute distress, conversant Eyes: sclera anicteric ENMT: ears and nose atraumatic, moist mucous membranes, poor dentition, no lip lesions Neck: Supple, trachea is midline, no cervical or supraclavicular adenopathy and no palpable thyromegaly Cardiovascular: S1, S2, no murmurs, no peripheral edema Respiratory: clear to auscultation with normal respiratory effort and no intercostal retractions GI: abdomen soft, nontender, nondistended, no palpable hepatosplenomegaly Extremities / lymphatics: symmetrically warm, free range of motion, chronic venous insufficiency changes both lower legs or intense on the right with some edema, no cervical, supraclavicular, axillary, or inguinal adenopathy Musculoskeletal: did not evaluate gait and station, no digital cyanosis, good muscle strength and tone no atrophy, motor grossly 5 out of 5 throughout Skin: no jaundice, warm, nondiaphoretic, no areas of erythema or induration, but obvious diffuse dark red rash on his arms abdomen and legs and thorax skin is intact Psychiatric: mood and affect are appropriate and alert and oriented to person place and time Labs potassium 5.3 elevated. Creatinine white blood cell count normal platelets were little low. Assessment/Plan Assessment/Plan Impression patient with a rash without obvious signs of infection or exposure other than blood transfusion a few weeks ago, and his on chronic anticoagulation. He has chronic venous insufficiency. I saw him late last night and today the rash is still there only very slightly faded, , so we'll proceed with a biopsy at the bedside see procedure note: Preoperative diagnosis rash postop diagnosis rash procedure punch skin biopsy with suture closure, EBL minimal lap and sponge counts correct wound expectancy clean IV fluids none complications none patient tolerated procedure well. Under aseptic conditions I prepped an area on his anterior thigh on the right injected local anesthetic in that spot and used to punch biopsy tool twisted it into his skin full-thickness placed that specimen in a buffered formalin cup for pathology there was minimal bleeding despite his history, but even so, I sutured that tiny opening with a 5-0 fast absorbing chromic cut followed by some bacitracin and a sterile gauze dressing and tape. Problem List: 1. Petechial rash 2. Atrial fibrillation Consult Acknowledgment - Thank you for your consult request.
[2016-08-26 22:53] VITALS: BP 150/78
[2016-08-27] VITALS: BP 150/78
[2016-08-27 07:16] VITALS: BP 130/70
--- NOTE | 2016-08-27 07:47 | PN- Housestaff ---
JENIFFER BAKER,RUBIO 08/27/16 0747: Subjective Follow-up For: Petechial rash CHARLES Suspected vasculitis Subjective: I saw examined the patient today morning He is lying on the bed with legs and had enough the bed elevated. Still reports cough with whitish phlegm. Rash appears to be resolving, but patchy new onset petechia visible on both knees and left hand. He appears to be short of breath, although saturating well on room air. Audible wheezing present. Reports weakness. Denies any pain. Review of Systems Constitutional: Reports: see HPI, malaise, weakness. Comments: ROS negative except above Objective Last 24 Hrs of Vital Signs/I&O Vital Signs Date Time Temp Pulse Resp B/P Pulse O2 O2 Flow FiO2 Ox Delivery Rate 08/27 0716 97.9 76 20 130/70 94 Room Air / 0000 98.0 99 20 150/78 08/26 2253 98.0 99 20 150/78 95 Room Air 08/26 1640 94 Room Air 08/26 1600 Room Air Room Air 08/26 1408 98.2 80 20 130/70 96 08/26 1027 140/90 08/26 0800 Room Air Intake & Output 08/27 0800 08/27 0000 08/26 1600 Intake Total 360 480 600 Output Total Balance 360 480 600 Intake, Oral 360 480 600 Physical Exam General Appearance: Alert, Oriented X3, Cooperative Skin: No Rashes, No Breakdown HEENT: Atraumatic, PERRLA Neck: Supple Cardiovascular: Regular Rate, Normal S1, Normal S2 Lungs: Normal Air Movement, diffuse expiratory wheezing present Abdomen: Normal Bowel Sounds, Soft, No Tenderness Neurological: Strength at 5/5 X4 Ext, Normal Tone, Sensation Intact Extremities: No Clubbing, No Cyanosis, No Edema, medial side of her right leg wound present Vascular: Normal Pulses, Pulses Symmetrical Current Medications: Current Medications Sig/Dagoberto Start time Last Medication Dose Route Stop Time Status Admin Acetaminophen 650 MG .STK-MED ONE 08/26 1453 DC PO 08/26 1454 Acetaminophen 650 MG Q6P PRN 08/23 2345 AC 08/27 PO 0405 Albuterol Sulfate 3 ML BID 08/26 2200 AC 08/26 INH 1640 Aspirin 81 MG DAILY 08/24 1000 DC 08/25 PO 0917 Benzonatate 100 MG TID PRN 08/25 1115 AC 08/26 PO 1027 Folic Acid 1 MG DAILY 08/24 1000 AC 08/26 PO 1027 Guaifenesin 10 ML Q6P PRN 08/26 1530 AC 08/26 PO 1537 Lorazepam 0 Q1P PRN 08/24 2345 AC IV Metoprolol Tartrate 50 MG DAILY 08/24 1000 AC 08/26 PO 1027 Multivitamins 1 TAB DAILY 08/24 1000 AC 08/26 PO 1027 Patient Medication 1 ED .STK-MED ONE 08/26 1410 DC Teaching ED 08/26 1411 Sodium Polystyrene 120 ML ONCE ONE 08/26 1145 DC 08/26 Sulfonate PO 08/26 1146 1351 Thiamine HCl 100 MG DAILY 08/24 1000 AC 08/26 PO 1027 Last 24 Hrs of Lab/Hemal Results Last 24 Hrs of Labs/Mics: Laboratory Tests 08/27/16 0753: Cryoglobulin Interp Pending 08/27/16 0705: Cortisol AM Sample 59.4 H 08/26/16 1722: Cryoglobulin Interp Pending 08/26/16 1700: Urinalysis MOD H, Urine Color BLDY H, Urine Clarity CLDY H, Urine pH 5.5, Ur Specific Sanderson >= 1.030, Urine Protein >=300 H, Urine Ketones NEG, Urine Nitrite POS H, Urine Bilirubin POS@ICTO H, Urine Urobilinogen 0.2, Ur Leukocyte Esterase TRACE H, Ur Microscopic SEDIMENT EXAMINED, Urine RBC >75 H, Urine WBC 10-15 H, Ur Epithelial Cells MOD H, Hyaline Casts FEW H, Granular Casts FEW H, Urine Hemoglobin LARGE H, Urine Glucose NEG 08/26/16 1700: Ref Lab Test Result Cancelled, Urine Osmolality 442, Ur Random Creatinine 307.2, Ur Random Microalbumin > 114.0 H, Ur Random Sodium 7 L, Ur Random Potassium 76.3, Fraction Sodium Excret 0.0, U Cystine/Creat Ratio 08/26/16 1321: Ur Random Creatinine Pending, U Random Total Protein Pending Microbiology 08/26 1700 URINE ROUT: Urine Culture - RES 08/26 1200 LOWER RESP: Respiratory Culture - RES 08/26 1200 LOWER RESP: Gram Stain - RES Assessment/Plan Assessment: Patient is a 71-year-old male with past medical history significant for atrial fibrillation on Coumadin, hypertension, CAD status post stents, recently admitted 3 weeks ago after significant bleeding from varicose vein requiring 2 units transfusion with persistent swelling, discoloration for which she self administered himself with Lasix twice last week. He was admitted yesterday with worsening lower right leg pain and acute development of diffusely spreading petechial rash. Rash started on the lower extremities and started spreading all over to the upper extremities abdomen sparing pack and face. At admission he is afebrile with stable vitals. Labs significant for normal white count with BUN/creatinine 27/1.7, normal liver enzymes, INR 2.4 Fibrinogen activity 417, February nutrition products greater than 10, d-dimer 1789 UAs hazy with trace ketones, white count 5-10, RBC 15-25, leukocyte esterase trace. Hepatitis panel is negative, HIV nonreactive, antinuclear antibody negative, MARTIN and complement levels are negative. His ESR is 36, C-reactive protein 5.9. Venous Doppler negative for any deep vein thrombosis X-ray negative for involvement of bone Plan Admitted to [facility] floor Rapidly proliferating Purpuric/petechial rash with dark urine and hemoptysis * At this point vascular disease is often primary differential, with other differentials including drug-induced, allergic, infectious. * Derm consulted - suggesting skin punch biopsy * Had cough with pink to reddish sputum - pulm consulted and Chest CT without contrast suggested which revealed pulmonary nodules (not significant). * Skin biopsy performed yesterday, awaiting pathology results. 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 Suspected Glomerulonephritis (HSP) * worsening renal function with Cr of 2.6 today with hematuria and proteinuria * UA is cloudy, bloody with positive nitrate and protein. * Urine random microglobulin is 114, total protein 558, sodium 7 and pr/cr ratio - 2.0 * Started on IV fluids with NS @100ml/hr * Need to follow up with postvoidal residual volume * Renal USG in the am * potassium restricted diet. Leukocytosis * patient had white count of 21.5 today with cough. * He also reports blood with sputum - Discontinued coumadin and Aspirin * Sputum sent for cytology and culture * pancultures are requested, will follow up. Right lower extremity ulcer Wound consult placed - suggesting wound cleansing and then moist wound care daily with either Adaptic or Xeroform and leg elevation while in bed. CHARLES * BUN/creatinine - 27/1.7 at admission * Cretinine is 2.6 today with K of 5.3 * Nephro consulted * EKG dosent show any acute changes - Kayexalate given. * Requested ANCA (MPO/PR3), Urine lytes, osmolalities, cryoglobulins. * We will recheck BEP tomorrow Atrial fibrillation * On Coumadin at home - discontinued in the setting of hemoptysis. Hypertension * His home medication metoprolol 50 mg continued CAD status post stents * Discontinued aspirin DVT prophylaxis * INR - 2.4 CODE STATUS * DNR/DNI Problem List: 1. Acute kidney injury 2. Atrial fibrillation 3. Bleeding from varicose veins of right lower extremity 4. Petechial rash 5. Glomerulonephritis Pain Ratin Pain Location: n/a Pain Goal: Pain 4 or less Pain Plan: tylenol PRN Tomorrow's Labs & Rationales: cbc bep Consulting Request: Consulting Specialty: Hematology/Oncology SHAAN CALLE MD 08/27/16 1248: Attending MD Review Statement Attending Statement Attending MD Statement: examined this patient, discuss w/resident/PA/GROCERY STORE BAGGER, agreed w/resident/PA/GROCERY STORE BAGGER, reviewed EMR data (avail), discussed with nursing, amended to note Attending Assessment/Plan: Patient seen and examined, saying that he's feeling very tired. The rash looks slightly better. No further episodes of hemoptysis. His creatinine is worse today as well as his BUN. At this point it is unclear whether the patient has any glomerulonephritis or vasculitis. No steroids were recommended by rheumatology or nephrology. At this point we'll start him on gentle IV hydration. We'll continue to monitor his renal function. We'll continue to monitor his creatinine. Will notify pulmonology if there is further episodes of hemoptysis. Patient did not receive Coumadin yesterday but his INR today has jumped up. We'll hold off on Coumadin and monitor INR as well as H&H. Will monitor his blood pressure also.
--- NOTE | 2016-08-27 10:17 | PN- Pulmonary ---
Subjective HPI/Critical Care Issues: Patient has no respiratory complaints and has had no hemoptysis. Expectorated sputum from this morning was examined and had no evidence of blood Objective Current Medications: Current Medications Sig/Dagoberto Start time Last Medication Dose Route Stop Time Status Admin Acetaminophen 650 MG .STK-MED ONE 08/26 1453 DC PO 08/26 1454 Acetaminophen 650 MG Q6P PRN 08/23 2345 AC 08/27 PO 0405 Albuterol Sulfate 3 ML BID 08/26 2200 AC 08/27 INH 0758 Benzonatate 100 MG TID PRN 08/25 1115 AC 08/26 PO 1027 Folic Acid 1 MG DAILY 08/24 1000 AC 08/26 PO 1027 Guaifenesin 10 ML Q6P PRN 08/26 1530 AC 08/26 PO 1537 Lorazepam 0 Q1P PRN 08/24 2345 AC IV Metoprolol Tartrate 50 MG DAILY 08/24 1000 AC 08/26 PO 1027 Multivitamins 1 TAB DAILY 08/24 1000 AC 08/26 PO 1027 Patient Medication 1 ED .STK-MED ONE 08/26 1410 DC Teaching ED 08/26 1411 Sodium Polystyrene 120 ML ONCE ONE 08/26 1145 DC 08/26 Sulfonate PO 08/26 1146 1351 Thiamine HCl 100 MG DAILY 08/24 1000 AC 08/26 PO 1027 Vital Signs & I&O Last 24 Hrs of Vitals and I&O: Vital Signs Date Time Temp Pulse Resp B/P Pulse O2 O2 Flow FiO2 Ox Delivery Rate 08/27 0800 Room Air 08/27 0800 95 Room Air / 0716 97.9 76 20 130/70 94 Room Air 03/ 0000 98.0 99 20 150/78 08/26 2253 98.0 99 20 150/78 95 Room Air / 1640 94 Room Air 08/26 1600 Room Air Room Air 08/26 1408 98.2 80 20 130/70 96 / 1027 140/90 Intake & Output 08/27 1600 08/27 0800 03/04 0000 Intake Total 360 480 Output Total Balance 360 480 Intake, Oral 360 480 Room oxygen saturation 95% exam of his chest shows clear lung elaine mildly diminished breath sounds at the bases there are no wheezes cardiac exam shows regular S1 and S2 without murmurs lower extremity edema is decreased with elevation and his rash appears to be fading. Right lower extremity ulcer remains unchanged Impression/Plan Impression/Plan Impression/Plan: 71-year-old gentleman admitted with diffuse ecchymotic rash found to have mild renal failure and thought to have hemoptysis. This is been low level at best and appears to have resolved Recommendations: Continue to monitor sputum for evidence of hemoptysis follow-up recommendations of Dr. Jensen
[2016-08-27 11:51] LABS: ABSOLUTE BASOPHIL COUNT 0 /CUMM (0.0-0.2); ABSOLUTE EOSINOPHIL COUNT 0 /CUMM (0.0-0.7); ABSOLUTE GRANULOCYTE CT 18.3 /CUMM (1.4-6.5); ABSOLUTE LYMPH COUNT 0.5 /CUMM (1.2-3.4); ABSOLUTE MONOCYTE COUNT 2.6 /CUMM (0.10-0.60); BASOPHIL % 0 % (0.0-2.0); EOSINOPHIL % 0 % (0-5); GRANULOCYTE % 85.2 % (42.2-75.2); HEMATOCRIT 35.8 % (42-52); MEAN CORPUSCULAR HGB 30.1 PG (27.0-31.0); MEAN CORPUSCULAR HGB CONC 33.5 G/DL (33.0-37.0); MEAN CORPUSCULAR VOLUME 89.9 FL (80.0-94.0); MEAN PLATELET VOLUME 8.4 FL (7.4-10.4); PLATELET COUNT 140 /CUMM (130-400); RBC DISTRIBUTION WIDTH 13.8 % (11.5-14.5); RED BLOOD CELL CT 3.99 /CUMM (4.70-6.10)
[2016-08-27 12:07] LABS: PT 41.8 SEC (9.4-12.5)
[2016-08-27 13:24] LABS: WHITE BLOOD CELL COUNT 21.5 /CUMM (4.8-10.8)
[2016-08-27 14:48] VITALS: BP 120/60
--- NOTE | 2016-08-27 14:57 | NUR ---
PT HAD BLOOD DRAWN THREE TIMES TODAY. FIRST DRAW WAS NOT DELIVERED TO LAB IN REQUIRED MANNER. PT DRAWN SECOND TIME BY GUIDELINES FROM LAB. FIXED INCOME MANAGER ORDERED MORE BLOOD WORK TO BE DRAWN IN AFTERNOON. PT UPSET ABOUT MULTIPLE STICKS AND IMPORTANCE OF BLOOD DRAWS. DOES NOT WANT TO BE STUCK AGAIN. PT'S IV OUT OF DATE TODAY. PATENT, ABLE TO GET BLOOD RETURN. WILL HAVE IV EXTENDED FOR 24 HOURS TO AVOID ANOTHER STICK. FIXED INCOME MANAGER AWARE. IV FLUIDS INITIATED.
--- NOTE | 2016-08-27 17:36 | PN- Nephrology ---
Assessment/Plan Assessment: CHARLES - Clinically, the patient has a glomerulonephritis with hematuria, proteinuria. 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 I will likely want to pursue a kidney biopsy as well given his degree of renal involvement (severe cases of IgA may be treated differently). That all being said, it is not likely to be the cause of his CHARLES in the last day. He is getting IVF which seems reasonable but I would also rule out urinary obstruction with at least a bladder scan for PVR. Hyponatremia - Relatively hypotonic with a slightly elevated urine osm and a low urine sodium. Clinically this seems consistent with volume depletion - I agree with IVF. Hyperkalemia - Need to restrict K in diet and avoid offending meds. Hopefully should improve with IVF. Suggestion: -Careful IVF administration - current rate seems reasonable -Please call me when skin biopsy results are back -Would continue to hold aspirin and coumadin -Tentative plans for renal biopsy on Monday or depending on clinical course and skin biopsy results -Please get bladder scan with PVR -Renal U/S Please call [phone] with ?'s Subjective Subjective: SCr up to 2.6 On IVF FENa low 2g of protein on spot >75 RBC's in urine Skin biopsy result still pending Objective Vital Signs and I&Os Vital Signs Date Time Temp Pulse Resp B/P Pulse O2 O2 Flow FiO2 Ox Delivery Rate 08/27 1600 Room Air 08/27 1448 97.6 105 20 120/60 97 03/04 1024 116 160/90 / 0800 Room Air / 0800 95 Room Air / 0716 97.9 76 20 130/70 94 Room Air 03/ 0000 98.0 99 20 150/78 / 2253 98.0 99 20 150/78 95 Room Air Intake & Output 03/ 1600 03/04 0400 08/26 1600 08/26 0400 08/25 1600 08/25 0400 Intake Total 835 480 939 919 6358 200 Output Total 100 200 Balance 835 480 229 644 4347 200 Intake, IV 75 Intake, Oral 760 480 112 188 2157 200 Number 1 Bowel Movements Output, Urine 100 200 Physical Exam: Gen - OK appearing HEENT - supple CV - RRR Chest - clear Abd - soft, nontender to palpation Lower ext - RLE enlarged Skin - innumerrable nonblanching petechial lesions on legs - nontender but palpable, RLE fully purple/red in color Neuro - AOX3 Current Medications: Current Medications Sig/Dagoberto Start time Last Medication Dose Route Stop Time Status Admin Acetaminophen 650 MG .STK-MED ONE 08/27 0400 DC PO 08/27 0401 Acetaminophen 650 MG Q6P PRN 08/23 2345 AC 08/27 PO 1347 Albuterol Sulfate 3 ML BID 08/26 2200 AC 08/27 INH 0758 Benzonatate 100 MG TID PRN 08/25 1115 AC 08/26 PO 1027 Bisacodyl 10 MG ONCE ONE 08/27 1400 DC MO 08/27 1401 Bisacodyl 5 MG DAILY 08/27 1358 AC 08/27 PO 1555 Folic Acid 1 MG DAILY 08/24 1000 AC 08/27 PO 1023 Guaifenesin 10 ML Q6P PRN 08/26 1530 AC 08/27 PO 1024 Lorazepam 0 Q1P PRN 08/24 2345 AC IV Metoprolol Tartrate 50 MG DAILY 08/24 1000 AC 08/27 PO 1024 Multivitamins 1 TAB DAILY 08/24 1000 AC 08/27 PO 1023 Polyethylene Glycol 17 GM DAILY 08/27 1358 AC PO Sodium Chloride 1,000 ML Q10H 08/27 1245 AC 08/27 IV 1348 Thiamine HCl 100 MG DAILY 08/24 1000 AC 08/27 PO 1023 Results Pertinent Lab Results: Laboratory Tests 08/27 08/27 08/27 1117 0753 0705 Chemistry Sodium (137 - 145 mmol/L) 129 L Potassium (3.5 - 5.1 mmol/L) 5.6 H Chloride (98 - 107 mmol/L) 99 Carbon Dioxide (22 - 30 mmol/L) 20 L Anion Gap (5 - 16) 10 BUN (9 - 20 mg/dL) 57 H Creatinine (0.7 - 1.2 mg/dL) 2.6 H Estimated GFR (>60 ml/min) 24 L BUN/Creatinine Ratio (7 - 25 %) 21.9 Cortisol AM Sample (4.46 - 22.7 ug/dL) 59.4 H Coagulation PT (9.4 - 12.5 SEC) 41.8 H INR (0.90 - 1.17) 4.04 *H Hematology CBC w Diff NO MAN DIFF REQ WBC (4.8 - 10.8 /CUMM) 21.5 H RBC (4.70 - 6.10 /CUMM) 3.99 L Hgb (14.0 - 18.0 G/DL) 12.0 L Hct (42 - 52 %) 35.8 L MCV (80.0 - 94.0 FL) 89.9 MCH (27.0 - 31.0 PG) 30.1 RDW (11.5 - 14.5 %) 13.8 Plt Count (130 - 400 /CUMM) 140 MPV (7.4 - 10.4 FL) 8.4 Gran % (42.2 - 75.2 %) 85.2 H Lymphocytes % (20.5 - 51.1 %) 2.5 L Monocytes % (1.7 - 9.3 %) 12.3 H Eosinophils % (0 - 5 %) 0 Basophils % (0.0 - 2.0 %) 0 L Absolute Granulocytes (1.4 - 6.5 /CUMM) 18.3 H Absolute Lymphocytes (1.2 - 3.4 /CUMM) 0.5 L Absolute Monocytes (0.10 - 0.60 /CUMM) 2.6 H Absolute Eosinophils (0.0 - 0.7 /CUMM) 0 Absolute Basophils (0.0 - 0.2 /CUMM) 0 PUBS MCHC (33.0 - 37.0 G/DL) 33.5 Immunology Cryoglobulin Interp Pending 08/26 08/26 08/26 1722 1700 1700 Immunology Cryoglobulin Interp Pending Miscellaneous Ref Lab Test Result Cancelled Urines Urinalysis MOD H Urine Color (YEL,AMB,STR) BLDY H Urine Clarity (CLEAR) CLDY H Urine pH (5.0 - 8.0) 5.5 Ur Specific Lejunior (1.001 - 1.035) >= 1.030 Urine Protein (NEG,<30 MG/DL) >=300 H Urine Ketones (NEG) NEG Urine Nitrite (NEG) POS H Urine Bilirubin (NEG) POS@ICTO H Urine Urobilinogen (0.1 - 1.0 EU/dl) 0.2 Ur Leukocyte Esterase (NEG) TRACE H Ur Microscopic SEDIMENT EXAMINED Urine RBC (0 - 5 /HPF) >75 H Urine WBC (0 - 2 /HPF) 10-15 H Ur Epithelial Cells (NONE,FEW) MOD H Hyaline Casts (0/LPF) FEW H Granular Casts (NONE /LPF) FEW H Urine Hemoglobin (NEG) LARGE H Urine Osmolality (300 - 1000 MOSM/KG) 442 Ur Random Creatinine (mg/dL) 307.2 Ur Random Microalbumin (<1.7 mg/dl) > 114.0 H Ur Random Sodium (30 - 90 mmol/L) 7 L Ur Random Potassium (mmol/L) 76.3 Fraction Sodium Excret (<1% %) 0.0 Urine Glucose (N MG/DL) NEG U Cystine/Creat Ratio (mcg/mg) 08/26 08/26 08/26 1321 0833 0730 Chemistry Sodium (137 - 145 mmol/L) 131 L Potassium (3.5 - 5.1 mmol/L) 5.9 H Chloride (98 - 107 mmol/L) 103 Carbon Dioxide (22 - 30 mmol/L) 22 Anion Gap (5 - 16) 6 BUN (9 - 20 mg/dL) 39 H Creatinine (0.7 - 1.2 mg/dL) 1.3 H Estimated GFR (>60 ml/min) 54 L BUN/Creatinine Ratio (7 - 25 %) 30.0 H Glucose (65 - 99 mg/dL) 114 H Serum Osmolality (285 - 295 MOSM/KG) 287 Coagulation PT (9.4 - 12.5 SEC) 22.3 H INR (0.90 - 1.17) 2.14 H Hematology CBC w Diff NO MAN DIFF REQ WBC (4.8 - 10.8 /CUMM) 11.0 H RBC (4.70 - 6.10 /CUMM) 4.22 L Hgb (14.0 - 18.0 G/DL) 12.6 L Hct (42 - 52 %) 37.6 L MCV (80.0 - 94.0 FL) 89.2 MCH (27.0 - 31.0 PG) 29.8 RDW (11.5 - 14.5 %) 13.5 Plt Count (130 - 400 /CUMM) 146 MPV (7.4 - 10.4 FL) 8.4 Gran % (42.2 - 75.2 %) 78.9 H Lymphocytes % (20.5 - 51.1 %) 6.7 L Monocytes % (1.7 - 9.3 %) 14.4 H Eosinophils % (0 - 5 %) 0 Basophils % (0.0 - 2.0 %) 0 L Absolute Granulocytes (1.4 - 6.5 /CUMM) 8.7 H Absolute Lymphocytes (1.2 - 3.4 /CUMM) 0.7 L Absolute Monocytes (0.10 - 0.60 /CUMM) 1.6 H Absolute Eosinophils (0.0 - 0.7 /CUMM) 0 Absolute Basophils (0.0 - 0.2 /CUMM) 0 PUBS MCHC (33.0 - 37.0 G/DL) 33.4 Urines Ur Random Creatinine (mg/dL) 280 U Random Total Protein (0 - 12 mg/dL) 558.2 H Protein/Creatinin Ratio (< 0.2) 2.00 H 03/03 03/02 0230 0615 Chemistry Sodium (137 - 145 mmol/L) 134 L Potassium (3.5 - 5.1 mmol/L) 5.3 H Chloride (98 - 107 mmol/L) 106 Carbon Dioxide (22 - 30 mmol/L) 22 Anion Gap (5 - 16) 6 BUN (9 - 20 mg/dL) 29 H Creatinine (0.7 - 1.2 mg/dL) 1.0 Estimated GFR (>60 ml/min) > 60 BUN/Creatinine Ratio (7 - 25 %) 29.0 H TSH (0.270 - 4.200 uIU/mL) 2.270 Coagulation PT (9.4 - 12.5 SEC) 18.9 H INR (0.90 - 1.17) 1.81 H Hematology CBC w Diff NO MAN DIFF REQ WBC (4.8 - 10.8 /CUMM) 8.6 RBC (4.70 - 6.10 /CUMM) 3.80 L Hgb (14.0 - 18.0 G/DL) 11.4 L Hct (42 - 52 %) 34.1 L MCV (80.0 - 94.0 FL) 89.7 MCH (27.0 - 31.0 PG) 30.2 RDW (11.5 - 14.5 %) 13.6 Plt Count (130 - 400 /CUMM) 109 L MPV (7.4 - 10.4 FL) 9.0 Gran % (42.2 - 75.2 %) 73.7 Lymphocytes % (20.5 - 51.1 %) 12.3 L Monocytes % (1.7 - 9.3 %) 12.8 H Eosinophils % (0 - 5 %) 0.9 Basophils % (0.0 - 2.0 %) 0.3 Absolute Granulocytes (1.4 - 6.5 /CUMM) 6.4 Absolute Lymphocytes (1.2 - 3.4 /CUMM) 1.1 L Absolute Monocytes (0.10 - 0.60 /CUMM) 1.1 H Absolute Eosinophils (0.0 - 0.7 /CUMM) 0.1 Absolute Basophils (0.0 - 0.2 /CUMM) 0 PUBS MCHC (33.0 - 37.0 G/DL) 33.6 Imaging/Other Studies: EXAM TYPE: CAT - CT CHEST WO IV CONTRAST EXAMINATION: CT CHEST WITHOUT CONTRAST CLINICAL INFORMATION: Cough with hemoptysis. Rash. Evaluate for vasculitis, possible Yeison's. COMPARISON: Chest x-ray 08/23/2016. CT of the abdomen and pelvis 04/10/2009. TECHNIQUE: Multidetector volumetric CT imaging of the chest was done. Axial MIP volume rendering provided. Sagittal and coronal reformatted images were obtained. DLP: 731.90 mGy-cm FINDINGS: RETAIL WIRELESS ASSOCIATE: Unremarkable. LUNGS: There are ill-defined reticular and nodular opacities in the posterior aspects of both lungs, including 5 mm nodules in the right upper lobe (series 4, image 172) and 5 mm nodule left upper lobe (series 4, image 237). There is mild thickening of the major fissures bilaterally with some vague nodularity of the fissures as well. MEDIASTINUM: There is no mediastinal or hilar adenopathy. There are scattered coronary artery calcifications. The thyroid gland is unremarkable. PLEURA: There are small bilateral pleural effusions. There is chronic elevation of the right hemidiaphragm. AXILLA: No lymphadenopathy. UPPER ABDOMEN: Unremarkable. OSSEOUS STRUCTURES: There is moderate multilevel spondylosis. There are no suspicious bone lesions. IMPRESSION: 1. Ill-defined reticular and nodular opacities in the posterior aspects of both lungs. The reticular opacities could represent dependent atelectasis. The nodules are nonspecific. Various management parameters for solitary pulmonary nodules are in the literature. According to the Fleischner Society, recommendations for pulmonary nodules are as follows: Nodule size < or = to 4 mm in LOW RISK PATIENTS: No follow up needed. Nodule size < or = to 4 mm in HIGH RISK PATIENTS: Follow up CT at 12 months; if unchanged, no further follow up. Nodule size > 4-6 mm in LOW RISK PATIENTS: Follow up CT at 12 months; if unchanged, no further follow up. Nodule size > 4-6 mm in HIGH RISK PATIENTS: Initial follow up CT at 6-12 months, then at 18-24 months if no change. 2. Small bilateral pleural effusions.
--- NOTE | 2016-08-27 21:32 | NUR ---
PT STATING HE HAS DIFFICULTY VOIDING, HE VOIDS SMALL AMOUNTS EACH TIME. NURSING MISC TO BLADDER SCAN PT AND REPORT TO SOLAR INSTALLATION HELPER. BLADDER SCAN REVEALED 90ML. SOLAR INSTALLATION HELPER AWARE. WILL CONTINUE TO MONITOR.
[2016-08-27 22:14] VITALS: BP 142/84
[2016-08-28] VITALS: BP 142/84
[2016-08-28 07:17] VITALS: BP 140/64
--- NOTE | 2016-08-28 08:05 | PN- Housestaff ---
Assessment/Plan Assessment: Patient is a 71-year-old male with past medical history significant for atrial fibrillation on Coumadin, hypertension, CAD status post stents, recently admitted 3 weeks ago after significant bleeding from varicose vein requiring 2 units transfusion with persistent swelling, discoloration for which she self administered himself with Lasix twice last week. He was admitted yesterday with worsening lower right leg pain and acute development of diffusely spreading petechial rash. Rash started on the lower extremities and started spreading all over to the upper extremities abdomen sparing pack and face. At admission he is afebrile with stable vitals. Labs significant for normal white count with BUN/creatinine 27/1.7, normal liver enzymes, INR 2.4 Fibrinogen activity 417, February nutrition products greater than 10, d-dimer 1789 UAs hazy with trace ketones, white count 5-10, RBC 15-25, leukocyte esterase trace. Hepatitis panel is negative, HIV nonreactive, antinuclear antibody negative, MARTIN and complement levels are negative. His ESR is 36, C-reactive protein 5.9. Venous Doppler negative for any deep vein thrombosis X-ray negative for involvement of bone Plan Admitted to [facility] med floor Rapidly proliferating Purpuric/petechial rash with dark urine and hemoptysis * At this point vascular disease is often primary differential, with other differentials including drug-induced, allergic, infectious. * Derm consulted - suggesting skin punch biopsy * Had cough with pink to reddish sputum - pulm consulted and Chest CT without contrast suggested which revealed pulmonary nodules (not significant). * Skin biopsy performed yesterday, awaiting pathology results. 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 Suspected Glomerulonephritis (HSP) * worsening renal function with Cr of 2.6 today with hematuria and proteinuria * UA is cloudy, bloody with positive nitrate and protein. * Urine random microglobulin is 114, total protein 558, sodium 7 and pr/cr ratio - 2.0 * Started on IV fluids with NS @100ml/hr * Need to follow up with postvoidal residual volume * Renal USG in the am * potassium restricted diet. Leukocytosis * patient had white count of 21.5 today with cough. * He also reports blood with sputum - Discontinued coumadin and Aspirin * Sputum sent for cytology and culture * pancultures are requested, will follow up. Right lower extremity ulcer Wound consult placed - suggesting wound cleansing and then moist wound care daily with either Adaptic or Xeroform and leg elevation while in bed. CHARLES * BUN/creatinine - 27/1.7 at admission * Cretinine is 2.6 today with K of 5.3 * Nephro consulted * EKG dosent show any acute changes - Kayexalate given. * Requested ANCA (MPO/PR3), Urine lytes, osmolalities, cryoglobulins. * We will recheck BEP tomorrow Atrial fibrillation * On Coumadin at home - discontinued in the setting of hemoptysis. Hypertension * His home medication metoprolol 50 mg continued CAD status post stents * Discontinued aspirin DVT prophylaxis * INR - 2.4 CODE STATUS * DNR/DNI Consulting Request: Consulting Specialty: Hematology/Oncology
[2016-08-28 08:19] LABS: ABSOLUTE BASOPHIL COUNT 0 /CUMM (0.0-0.2); ABSOLUTE EOSINOPHIL COUNT 0 /CUMM (0.0-0.7); ABSOLUTE GRANULOCYTE CT 18.8 /CUMM (1.4-6.5); ABSOLUTE LYMPH COUNT 0.8 /CUMM (1.2-3.4); ABSOLUTE MONOCYTE COUNT 2.7 /CUMM (0.10-0.60); BASOPHIL % 0 % (0.0-2.0); EOSINOPHIL % 0 % (0-5); GRANULOCYTE % 84.2 % (42.2-75.2); HEMATOCRIT 36.9 % (42-52); MEAN CORPUSCULAR HGB 29.8 PG (27.0-31.0); MEAN CORPUSCULAR VOLUME 90.3 FL (80.0-94.0); MEAN PLATELET VOLUME 8.5 FL (7.4-10.4); PLATELET COUNT 162 /CUMM (130-400); RBC DISTRIBUTION WIDTH 14.2 % (11.5-14.5); RED BLOOD CELL CT 4.09 /CUMM (4.70-6.10); WHITE BLOOD CELL COUNT 22.3 /CUMM (4.8-10.8)
[2016-08-28 08:28] LABS: PT 46.3 SEC (9.4-12.5)
--- NOTE | 2016-08-28 09:31 | PN- Housestaff ---
RENO BAKER,KIERA 08/28/16 0931: Subjective Follow-up For: Petechial rash AKA Suspected vasculitis Subjective: Patient reports has been coughing phlegm not blood tinged. Denies overnight events. Rash appears to be improving. Last bowel movement was yesterday. Denies blood in stools. Denies abdominal pain, chest pain, shortness of breath, bleeding. Review of Systems Constitutional: Reports: see HPI. Objective Last 24 Hrs of Vital Signs/I&O Vital Signs Date Time Temp Pulse Resp B/P Pulse O2 O2 Flow FiO2 Ox Delivery Rate 08/28 0717 96.5 124 22 140/64 95 Room Air 08/27 2214 97.9 110 20 142/84 93 Room Air 08/27 2032 96 Room Air 08/27 1600 Room Air 08/27 1448 97.6 105 20 120/60 97 08/27 1024 116 160/90 Intake & Output 08/28 1600 08/28 0800 08/28 0000 Intake Total 1500 Output Total Balance 1500 Intake, IV 800 Intake, Oral 700 Physical Exam General Appearance: Alert, Oriented X3, Cooperative, No Acute Distress Skin: No Rashes HEENT: Mucous Membr. moist/pink Cardiovascular: Regular Rate, Normal S1, Normal S2 Lungs: bilateral decreased breath soundS, WITH DIFFUSE WHEEZE PRESENT Abdomen: Normal Bowel Sounds, Soft, No Tenderness Extremities: right great toe discolored, with no pain and loss of sensation. Current Medications: Current Medications Sig/Dagoberto Start time Last Medication Dose Route Stop Time Status Admin Acetaminophen 650 MG .STK-MED ONE 08/27 1332 DC PO 08/27 1333 Acetaminophen 650 MG Q6P PRN 08/23 2345 AC 08/28 PO 0330 Albuterol Sulfate 3 ML BID 08/26 2200 AC 08/27 INH 1957 Benzonatate 100 MG TID PRN 08/25 1115 AC 08/26 PO 1027 Bisacodyl 10 MG ONCE ONE 08/27 1400 DC VA 08/27 1401 Bisacodyl 5 MG DAILY 08/27 1358 AC 08/27 PO 1555 Folic Acid 1 MG DAILY 08/24 1000 AC 08/27 PO 1023 Guaifenesin 10 ML Q6P PRN 08/26 1530 AC 08/27 PO 1024 Lorazepam 0 Q1P PRN 08/24 2345 AC IV Metoprolol Tartrate 50 MG DAILY 08/24 1000 AC 08/27 PO 1024 Multivitamins 1 TAB DAILY 08/24 1000 AC 08/27 PO 1023 Polyethylene Glycol 17 GM DAILY 08/27 1358 AC PO Sodium Chloride 1,000 ML Q10H 08/27 1245 AC 08/27 IV 2332 Thiamine HCl 100 MG DAILY 08/24 1000 AC 08/27 PO 1023 Last 24 Hrs of Lab/Hemal Results Last 24 Hrs of Labs/Mics: Laboratory Tests 08/28/16 0845: Anion Gap 10, Estimated GFR 15 L, BUN/Creatinine Ratio 19.5 08/28/16 0620: PT 46.3 *H, INR 4.48 *H, CBC w Diff NO MAN DIFF REQ, RBC 4.09 L, MCV 90.3, MCH 29.8, RDW 14.2, MPV 8.5, Gran % 84.2 H, Lymphocytes % 3.6 L, Monocytes % 12.2 H, Eosinophils % 0, Basophils % 0 L, Absolute Granulocytes 18.8 H, Absolute Lymphocytes 0.8 L, Absolute Monocytes 2.7 H, Absolute Eosinophils 0, Absolute Basophils 0, PUBS MCHC 33.0 08/27/16 1117: Anion Gap 10, Estimated GFR 24 L, BUN/Creatinine Ratio 21.9, PT 41.8 H, INR 4.04 *H, CBC w Diff NO MAN DIFF REQ, RBC 3.99 L, MCV 89.9, MCH 30.1, RDW 13.8, MPV 8.4, Gran % 85.2 H, Lymphocytes % 2.5 L, Monocytes % 12.3 H, Eosinophils % 0, Basophils % 0 L, Absolute Granulocytes 18.3 H, Absolute Lymphocytes 0.5 L, Absolute Monocytes 2.6 H, Absolute Eosinophils 0, Absolute Basophils 0, PUBS MCHC 33.5 Assessment/Plan Assessment: Patient is a 71-year-old male with past medical history significant for atrial fibrillation on Coumadin, hypertension, CAD status post stents, recently admitted 3 weeks ago after significant bleeding from varicose vein requiring 2 units transfusion with persistent swelling, discoloration for which she self administered himself with Lasix twice last week. He was admitted yesterday with worsening lower right leg pain and acute development of diffusely spreading petechial rash. Rash started on the lower extremities and started spreading all over to the upper extremities abdomen sparing pack and face. At admission he is afebrile with stable vitals. Labs significant for normal white count with BUN/creatinine 27/1.7, normal liver enzymes, INR 2.4 Fibrinogen activity 417, July nutrition products greater than 10, d-dimer 1789 UAs hazy with trace ketones, white count 5-10, RBC 15-25, leukocyte esterase trace. Hepatitis panel is negative, HIV nonreactive, antinuclear antibody negative, MARTIN and complement levels are negative. His ESR was 36, C-reactive protein 5.9. Venous Doppler negative for any deep vein thrombosis X-ray negative for involvement of bone Plan Rapidly proliferating Purpuric/petechial rash with dark urine and hemoptysis * Improving * At this point vascular disease is often primary differential, with other differentials including drug-induced, allergic, infectious. * Derm consulted -skin punch biopsy results pending. 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 Suspected Glomerulonephritis (HSP) * worsening renal function with Cr of 3.9 today with hematuria and proteinuria * UA is cloudy, bloody with positive nitrate and protein. * Urine random microglobulin is 114, total protein 558, sodium 7 and pr/cr ratio - 2.0 * We'll consider stopping IV fluids as his urinary output is reduced * We'll monitor I's and O's * post voidal urine was 90 mL yesterday * Renal USG pending * potassium restricted diet. Leukocytosis * patient had white count of 22 today with cough. * Afebrile with cultures negative so far * He also reports blood with sputum - Discontinued coumadin and Aspirin. Right lower extremity ulcer Wound consult placed - suggesting wound cleansing and then moist wound care daily with either Adaptic or Xeroform and leg elevation while in bed. CHARLES * BUN/creatinine - 27/1.7 at admission * Cretinine is performed today was 3.9 with K of 5.3 * Nephro on board * EKG dosent show any acute changes - Kayexalate given. * Requested ANCA (MPO/PR3), Urine lytes, osmolalities, cryoglobulins. * We will recheck BEP tomorrow Supratherapeutic INR * Most inferior to vitamin K deficiency * No plan for reversal at this time as patient is not actively bleeding * If biopsy planned for Monday will consider reversing it with FFP tomorrow Atrial fibrillation * On Coumadin at home - discontinued in the setting of hemoptysis. * Cardiology updated Hypertension * His home medication metoprolol 50 mg continued CAD status post stents * Discontinued aspirin DVT prophylaxis * INR 4.48 CODE STATUS * DNR/DNI Problem List: 1. Acute kidney injury 2. Petechial rash 3. Glomerulonephritis 4. Atrial fibrillation 5. Symptomatic anemia Pain Ratin Pain Location: Back pain Pain Goal: Remain pain free Pain Plan: As mentioned med list Tomorrow's Labs & Rationales: Will need Consulting Request: Consulting Specialty: Hematology/Oncology LUC BAKER,SHAAN 08/28/16 1303: Attending MD Review Statement Attending Statement Attending MD Statement: examined this patient, discuss w/resident/PA/WARDROBE CUSTODIAN, agreed w/resident/PA/WARDROBE CUSTODIAN, reviewed EMR data (avail), discussed with nursing, reviewed images, amended to note Attending Assessment/Plan: Patient seen and examined, not doing well. Has worsening leukocytosis, creatinine. Also has worsening INR. H&H remained stable. Rash seems to be improving. Claims that once a via cc small amount of blood in the sputum but it has not worsened. Please discuss with nephrology if there is any role of starting empiric steroids. Renal ultrasound does not show any evidence of obstruction. Patient has been getting IV fluids in the last 24 hours with no further improvement in creatinine but actually has worsened. Patient is not on any nephrotoxic medications. DVT prophylaxis: INR supratherapeutic
--- NOTE | 2016-08-28 09:58 | PN- Pulmonary ---
Subjective HPI/Critical Care Issues: Patient has no complaints she's had no further hemoptysis and denies shortness of breath and continues to be well oxygenated on room air worsening renal failure is being evaluated Objective Current Medications: Current Medications Sig/Dagoberto Start time Last Medication Dose Route Stop Time Status Admin Acetaminophen 650 MG .STK-MED ONE 08/27 1332 DC PO 08/27 1333 Acetaminophen 650 MG Q6P PRN 08/23 2345 AC 08/28 PO 0330 Albuterol Sulfate 3 ML BID 08/26 2200 AC 08/27 INH 1957 Benzonatate 100 MG TID PRN 08/25 1115 AC 08/26 PO 1027 Bisacodyl 10 MG ONCE ONE 08/27 1400 DC OK 08/27 1401 Bisacodyl 5 MG DAILY 08/27 1358 AC 08/27 PO 1555 Folic Acid 1 MG DAILY 08/24 1000 AC 08/27 PO 1023 Guaifenesin 10 ML Q6P PRN 08/26 1530 AC 08/27 PO 1024 Lorazepam 0 Q1P PRN 08/24 2345 AC IV Metoprolol Tartrate 50 MG DAILY 08/24 1000 AC 08/27 PO 1024 Multivitamins 1 TAB DAILY 08/24 1000 AC 08/27 PO 1023 Polyethylene Glycol 17 GM DAILY 08/27 1358 AC PO Sodium Chloride 1,000 ML Q10H 08/27 1245 AC 08/27 IV 2332 Thiamine HCl 100 MG DAILY 08/24 1000 AC 08/27 PO 1023 Vital Signs & I&O Last 24 Hrs of Vitals and I&O: Vital Signs Date Time Temp Pulse Resp B/P Pulse O2 O2 Flow FiO2 Ox Delivery Rate 08/28 0717 96.5 124 22 140/64 95 Room Air / 2214 97.9 110 20 142/84 93 Room Air 08/27 2032 96 Room Air 08/27 1600 Room Air / 1448 97.6 105 20 120/60 97 / 1024 116 160/90 Intake & Output 08/28 1600 08/28 0800 08/28 0000 Intake Total 1500 Output Total Balance 1500 Intake, IV 800 Intake, Oral 700 Room air oxygen saturation is 95% exam of his chest shows clear lung elaine cardiac exam shows a regular S1 and S2 is diffuse petechial rash appears to be fading Impression/Plan Impression/Plan Impression/Plan: 71-year-old gentleman admitted with diffuse ecchymotic rash found to have mild renal failure and thought to have hemoptysis. This is been low level at best and appears to have resolved. Patient has had no further hemoptysis or respiratory symptoms Recommendations: Continue to monitor sputum for evidence of hemoptysis . Await skin biopsy results. Continue to elevate lower extremities with edema and probable venous stasis ulcer
--- NOTE | 2016-08-28 11:45 | ULTRASOUND REPORT ---
EXAMINATION: US RETROPERITONEAL COMPLETE (RENAL) CLINICAL INFORMATION: Worsening renal function.. COMPARISON: CT of April 10, 2009 TECHNIQUE: Real-time imaging of the kidneys and bladder. FINDINGS: Limited due to large body habitus. RIGHT KIDNEY: 11.4 x 8.0 x 5.5 cm (SAG x AP x TRV). The kidney is normal in size, contour, and echogenicity. Renal cortical thickness is normal. No calculi or focal parenchymal lesions. No hydronephrosis. LEFT KIDNEY: 12.4 x 6.5 x 5.7 cm (SAG x AP x TRV). The kidney is normal in size, contour, and echogenicity. Renal cortical thickness is normal. No calculi or focal parenchymal lesions. No hydronephrosis. BLADDER: Empty and not evaluated. Ureteral jets were not identified during study without the bladder. Prostate gland measures approximately 4.3 x 4.3 x 4.8 cm in size. IMPRESSION: No definite evidence to suggest medical renal disease. No evidence of hydronephrosis..
[2016-08-28 14:48] VITALS: BP 130/70
--- NOTE | 2016-08-28 16:52 | PN- Nephrology ---
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 Skin biopsy is pending. Although he does not have a fever, I am concerned that with a rising WBC and SCr over the last few days that he is becoming septic. Diarrhea raises concern for C diff (especially with high WBC). I think that his most recent rapid rise in SCr may be ATN in this setting rather than an RPGN. 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 I will likely want to pursue a kidney biopsy as well given his degree of renal involvement (severe cases of IgA may be treated differently) - his INR is very high - I don't see a strong indication at this point to not try and give him some Vitamin K. He may ultimately require dialysis which I discussed with him. At this point in time, there is not a clear role for plasmapheresis. Hyponatremia - Hypotonic with elevated urine osm and low urine Na c/w intravascular volume depletion. That being said, his rapid rise in SCr seems disproportionate to his volume status and fluid may need to be stopped soon ( especially if pulmonary edema develops). Hyperkalemia - Need to restrict K in diet and avoid offending meds. Suggestion: -Careful IVF administration - would get repeat chest x-ray to look for pulmonary vascular congestion - if any, would stop IVF -Please call me when skin biopsy results are back -Would continue to hold aspirin and coumadin - would give Vit K to start reversing INR -Tentative plans for renal biopsy on Monday or depending on clinical course and skin biopsy results -No steroids for now but may recommend in next 1-2 days depending on skin biopsy results -I will review his urinalysis to look for granular vs RBC casts Please call [phone] with ?'s Subjective Subjective: WBC up to 22.3 SCr up to 3.9 600cc UOP in the last day Na 128 Bicarb 18 Pt with diarrhea Says urinating less No hydro on renal U/S Objective Vital Signs and I&Os Vital Signs Date Time Temp Pulse Resp B/P Pulse O2 O2 Flow FiO2 Ox Delivery Rate 08/28 1448 97.7 80 20 130/70 95 08/28 1302 98 Room Air Room Air 08/28 1038 140/64 08/28 0800 97 08/28 0717 96.5 124 22 140/64 95 Room Air 03/ 0000 97.9 110 20 142/84 03/ 0000 92 Room Air 08/27 2214 97.9 110 20 142/84 93 Room Air 08/28 2031 96 Room Air Intake & Output 08/28 1600 08/28 0400 08/27 1600 08/27 0400 08/26 1600 08/26 0400 Intake Total 2130 1500 835 480 700 100 Output Total 600 100 Balance 1530 1500 835 480 600 100 Intake, IV 1600 800 75 Intake, Oral 530 700 760 480 700 100 Number 0 1 Bowel Movements Output, Urine 600 100 Physical Exam: Gen - OK appearing HEENT - supple CV - RRR Chest - clear Abd - soft, nontender to palpation Lower ext - RLE enlarged Skin - innumerrable nonblanching petechial lesions on legs - nontender but palpable, RLE fully purple/red in color Neuro - AOX3 Current Medications: Current Medications Sig/Dagoberto Start time Last Medication Dose Route Stop Time Status Admin Acetaminophen 650 MG .STK-MED ONE 08/28 0330 DC PO 08/28 0331 Acetaminophen 650 MG Q6P PRN 08/23 2345 AC 08/28 PO 0330 Albuterol Sulfate 3 ML BID 08/26 2200 AC 08/28 INH 1641 Benzonatate 100 MG TID PRN 08/25 1115 AC 08/26 PO 1027 Bisacodyl 5 MG DAILY 08/27 1358 AC 08/28 PO 1038 Folic Acid 1 MG DAILY 08/24 1000 AC 08/28 PO 1038 Guaifenesin 10 ML Q6P PRN 08/26 1530 AC 08/27 PO 1024 Lorazepam 0 Q1P PRN 08/24 2345 AC IV Metoprolol Tartrate 50 MG DAILY 08/24 1000 AC 08/28 PO 1038 Multivitamins 1 TAB DAILY 08/24 1000 AC 08/28 PO 1038 Polyethylene Glycol 17 GM DAILY 08/27 1358 AC 08/28 PO 1038 Sodium Chloride 1,000 ML Q10H 08/28 1300 AC IV Sodium Chloride 1,000 ML Q10H 08/27 1245 DC 08/28 IV 1037 Thiamine HCl 100 MG DAILY 08/24 1000 AC 08/28 PO 1038 Results Pertinent Lab Results: Laboratory Tests 08/28 08/28 1430 0845 Chemistry Sodium (137 - 145 mmol/L) 128 L Potassium (3.5 - 5.1 mmol/L) 5.3 H Chloride (98 - 107 mmol/L) 100 Carbon Dioxide (22 - 30 mmol/L) 18 L Anion Gap (5 - 16) 10 BUN (9 - 20 mg/dL) 76 H Creatinine (0.7 - 1.2 mg/dL) 3.9 H Estimated GFR (>60 ml/min) 15 L BUN/Creatinine Ratio (7 - 25 %) 19.5 Urines Urinalysis MANY H Urine Color (YEL,AMB,STR) AJIT Urine Clarity (CLEAR) CLDY H Urine pH (5.0 - 8.0) 6.0 Ur Specific [place] (1.001 - 1.035) 1.025 Urine Protein (NEG,<30 MG/DL) >=300 H Urine Ketones (NEG) NEG Urine Nitrite (NEG) NEG Urine Bilirubin (NEG) NEG Urine Urobilinogen (0.1 - 1.0 EU/dl) 0.2 Ur Leukocyte Esterase (NEG) TRACE H Ur Microscopic SEDIMENT EXAMINED Urine RBC (0 - 5 /HPF) >75 H Urine WBC (0 - 2 /HPF) 5-10 H Ur Epithelial Cells (NONE,FEW) RARE Urine Bacteria (NEG/NONE) RARE H Urine Hemoglobin (NEG) LARGE H Urine Glucose (N MG/DL) NEG 08/28 03/ 0620 1117 Chemistry Sodium (137 - 145 mmol/L) 129 L Potassium (3.5 - 5.1 mmol/L) 5.6 H Chloride (98 - 107 mmol/L) 99 Carbon Dioxide (22 - 30 mmol/L) 20 L Anion Gap (5 - 16) 10 BUN (9 - 20 mg/dL) 57 H Creatinine (0.7 - 1.2 mg/dL) 2.6 H Estimated GFR (>60 ml/min) 24 L BUN/Creatinine Ratio (7 - 25 %) 21.9 Coagulation PT (9.4 - 12.5 SEC) 46.3 *H 41.8 H INR (0.90 - 1.17) 4.48 *H 4.04 *H Hematology CBC w Diff NO MAN DIFF REQ NO MAN DIFF REQ WBC (4.8 - 10.8 /CUMM) 22.3 H 21.5 H RBC (4.70 - 6.10 /CUMM) 4.09 L 3.99 L Hgb (14.0 - 18.0 G/DL) 12.2 L 12.0 L Hct (42 - 52 %) 36.9 L 35.8 L MCV (80.0 - 94.0 FL) 90.3 89.9 MCH (27.0 - 31.0 PG) 29.8 30.1 RDW (11.5 - 14.5 %) 14.2 13.8 Plt Count (130 - 400 /CUMM) 162 140 MPV (7.4 - 10.4 FL) 8.5 8.4 Gran % (42.2 - 75.2 %) 84.2 H 85.2 H Lymphocytes % (20.5 - 51.1 %) 3.6 L 2.5 L Monocytes % (1.7 - 9.3 %) 12.2 H 12.3 H Eosinophils % (0 - 5 %) 0 0 Basophils % (0.0 - 2.0 %) 0 L 0 L Absolute Granulocytes (1.4 - 6.5 /CUMM) 18.8 H 18.3 H Absolute Lymphocytes (1.2 - 3.4 /CUMM) 0.8 L 0.5 L Absolute Monocytes (0.10 - 0.60 /CUMM) 2.7 H 2.6 H Absolute Eosinophils (0.0 - 0.7 /CUMM) 0 0 Absolute Basophils (0.0 - 0.2 /CUMM) 0 0 PUBS MCHC (33.0 - 37.0 G/DL) 33.0 33.5 08/27 08/27 08/26 0753 0705 1722 Chemistry Cortisol AM Sample (4.46 - 22.7 ug/dL) 59.4 H Immunology Cryoglobulin Interp Pending Pending 08/26 08/26 1700 1700 Miscellaneous Ref Lab Test Result Cancelled Urines Urinalysis MOD H Urine Color (YEL,AMB,STR) BLDY H Urine Clarity (CLEAR) CLDY H Urine pH (5.0 - 8.0) 5.5 Ur Specific [place] (1.001 - 1.035) >= 1.030 Urine Protein (NEG,<30 MG/DL) >=300 H Urine Ketones (NEG) NEG Urine Nitrite (NEG) POS H Urine Bilirubin (NEG) POS@ICTO H Urine Urobilinogen (0.1 - 1.0 EU/dl) 0.2 Ur Leukocyte Esterase (NEG) TRACE H Ur Microscopic SEDIMENT EXAMINED Urine RBC (0 - 5 /HPF) >75 H Urine WBC (0 - 2 /HPF) 10-15 H Ur Epithelial Cells (NONE,FEW) MOD H Hyaline Casts (0/LPF) FEW H Granular Casts (NONE /LPF) FEW H Urine Hemoglobin (NEG) LARGE H Urine Osmolality (300 - 1000 MOSM/KG) 442 Ur Random Creatinine (mg/dL) 307.2 Ur Random Microalbumin (<1.7 mg/dl) > 114.0 H Ur Random Sodium (30 - 90 mmol/L) 7 L Ur Random Potassium (mmol/L) 76.3 Fraction Sodium Excret (<1% %) 0.0 Urine Glucose (N MG/DL) NEG U Cystine/Creat Ratio (mcg/mg) 08/26 08/26 08/26 1321 0833 0730 Chemistry Sodium (137 - 145 mmol/L) 131 L Potassium (3.5 - 5.1 mmol/L) 5.9 H Chloride (98 - 107 mmol/L) 103 Carbon Dioxide (22 - 30 mmol/L) 22 Anion Gap (5 - 16) 6 BUN (9 - 20 mg/dL) 39 H Creatinine (0.7 - 1.2 mg/dL) 1.3 H Estimated GFR (>60 ml/min) 54 L BUN/Creatinine Ratio (7 - 25 %) 30.0 H Glucose (65 - 99 mg/dL) 114 H Serum Osmolality (285 - 295 MOSM/KG) 287 Coagulation PT (9.4 - 12.5 SEC) 22.3 H INR (0.90 - 1.17) 2.14 H Hematology CBC w Diff NO MAN DIFF REQ WBC (4.8 - 10.8 /CUMM) 11.0 H RBC (4.70 - 6.10 /CUMM) 4.22 L Hgb (14.0 - 18.0 G/DL) 12.6 L Hct (42 - 52 %) 37.6 L MCV (80.0 - 94.0 FL) 89.2 MCH (27.0 - 31.0 PG) 29.8 RDW (11.5 - 14.5 %) 13.5 Plt Count (130 - 400 /CUMM) 146 MPV (7.4 - 10.4 FL) 8.4 Gran % (42.2 - 75.2 %) 78.9 H Lymphocytes % (20.5 - 51.1 %) 6.7 L Monocytes % (1.7 - 9.3 %) 14.4 H Eosinophils % (0 - 5 %) 0 Basophils % (0.0 - 2.0 %) 0 L Absolute Granulocytes (1.4 - 6.5 /CUMM) 8.7 H Absolute Lymphocytes (1.2 - 3.4 /CUMM) 0.7 L Absolute Monocytes (0.10 - 0.60 /CUMM) 1.6 H Absolute Eosinophils (0.0 - 0.7 /CUMM) 0 Absolute Basophils (0.0 - 0.2 /CUMM) 0 PUBS MCHC (33.0 - 37.0 G/DL) 33.4 Urines Ur Random Creatinine (mg/dL) 280 U Random Total Protein (0 - 12 mg/dL) 558.2 H Protein/Creatinin Ratio (< 0.2) 2.00 H 03/03 0230 Chemistry TSH (0.270 - 4.200 uIU/mL) 2.270 Imaging/Other Studies: EXAM TYPE: US - US-RENAL/KIDNEY EXAMINATION: US RETROPERITONEAL COMPLETE (RENAL) CLINICAL INFORMATION: Worsening renal function.. COMPARISON: CT of April 10, 2009 TECHNIQUE: Real-time imaging of the kidneys and bladder. FINDINGS: Limited due to large body habitus. RIGHT KIDNEY: 11.4 x 8.0 x 5.5 cm (SAG x AP x TRV). The kidney is normal in size, contour, and echogenicity. Renal cortical thickness is normal. No calculi or focal parenchymal lesions. No hydronephrosis. LEFT KIDNEY: 12.4 x 6.5 x 5.7 cm (SAG x AP x TRV). The kidney is normal in size, contour, and echogenicity. Renal cortical thickness is normal. No calculi or focal parenchymal lesions. No hydronephrosis. BLADDER: Empty and not evaluated. Ureteral jets were not identified during study without the bladder. Prostate gland measures approximately 4.3 x 4.3 x 4.8 cm in size. IMPRESSION: No definite evidence to suggest medical renal disease. No evidence of hydronephrosis..
[2016-08-28 22:21] VITALS: BP 122/80
--- NOTE | 2016-08-28 23:36 | CT SCAN REPORT ---
EXAMINATION: CT ABDOMEN AND PELVIS WITHOUT CONTRAST CLINICAL INFORMATION: Abdominal pain, leukocytosis and diarrhea. COMPARISON: CT of abdomen pelvis from 04/02/2009. CT of the chest from 08/25/2016. TECHNIQUE: Multidetector volumetric imaging was performed from the superior aspect of the liver through the pubic symphysis. Sagittal and coronal reformatted images were obtained on the technologist's workstation. DLP: 1209 mGy-cm FINDINGS: LUNG BASES: Cardiomegaly. Atherosclerotic disease of coronary arteries. Small pleural effusions, unchanged in size compared to 08/25/2016, and scattered areas of atelectasis within the visualized bases. The right diaphragm is elevated. LIVER, GALLBLADDER, AND BILIARY TREE: Liver has normal size and attenuation. No focal hepatic lesion or intrahepatic bile duct dilatation. Gallbladder is surgically absent. PANCREAS: No pancreatic ductal dilatation or peripancreatic edema. Within the pancreatic tail, there is a 1.5 x 1.9 cm rim-like calcification that probably outlines a pancreatic cyst (images 31-33, series 2), and a 1.4 x 1.6 cm rim-like calcification was seen in the same area on 04/02/2009. SPLEEN: Unremarkable. ADRENAL GLANDS: Unremarkable. KIDNEYS AND URETERS: Kidneys have normal size, cortical thickness and attenuation. No nephrolithiasis or hydroureteronephrosis. There is mild, symmetric perinephric edema. BLADDER: Urinary bladder is underdistended. No bladder calculi. GASTROINTESTINAL TRACT: The stomach is well distended with fluid. Small and large bowel loops are normal in caliber. Although there is diverticulosis of the sigmoid colon, there is no convincing diverticulitis. Mild edema is present within the mesentery, likely secondary to anasarca. A trace amount of free fluid is present within the pelvis. ABDOMINAL WALL: There is edema within subcutaneous tissues of the abdominal wall, flanks and back (anasarca). No focal fluid collection. LYMPH NODES: No pathologic sized lymph nodes within the abdomen or pelvis. VASCULAR: There is mild atherosclerotic calcification of the abdominal aorta and iliac arteries without aneurysm. PELVIC VISCERA: The enlarged prostate gland is 4.5 cm AP, 5.5 cm transverse. Trace free fluid is present in the pelvic cul-de-sac. OSSEOUS STRUCTURES: Multilevel degenerative arthropathy of the visualized thoracic and lumbar spine. No suspicious bone lesions. No paraspinal fluid collection. IMPRESSION: 1. Small pleural effusions and bibasilar atelectasis, unchanged compared to 08/25/2016. 2. Cardiomegaly and coronary artery atherosclerotic disease. 3. Anasarca. 4. Diverticulosis of sigmoid colon without overt diverticulitis. 5. The focal rim-like calcification in the pancreatic tail is similar in size compared to 04/02/2009; this calcification might outline an old pancreatic cyst. 6. Prostatomegaly.
--- NOTE | 2016-08-29 00:05 | RADIOLOGY REPORT ---
EXAMINATION: XR CHEST CLINICAL INFORMATION: Acute renal failure. Evaluate for fluid overload. COMPARISON: 08/23/2016 TECHNIQUE: Chest, PA and lateral views FINDINGS: Cardiac silhouette is mildly enlarged. There is no acute pulmonary edema or focal pulmonary consolidation. Again noted is the right diaphragm elevation. The small pleural effusions are better demonstrated on the recent chest and abdomen CT exams. There is mild atelectasis in the right lung base overlying the elevated diaphragm and pleural effusion. No acute skeletal abnormalities. IMPRESSION: Cardiomegaly without pulmonary edema. Small pleural effusions. Right basilar atelectasis.
--- NOTE | 2016-08-29 01:25 | NUR ---
THIS RN NOTED THAT PATIENT'S CT SCAN AND CXRAY RESULTS INDICATED BILAT SMALL PLEURAL EFFUSIONS. PER NEPHROLOGY CONSULT BY DR TRUONG ON 08/28/16, IF PLEURAL EFFUSIONS EXIST, PLEASE D/C IV FLUIDS. THIS RN SPOKE TO MD NAZARIO REGARDING THIS AND MD NAZARIO STATED HE WOULD LOOK INTO IT. CALLED BACK AND STATED THAT HE WOULD LIKE TO DECREASE THE IVF TO 75 ML/HR (FROM 100 ML/HR) FOR NOW UNTIL THE AM TEAM ASSESSES PATIENT. IVF DECREASED PER VERBAL ORDER. WILL CONTINUE TO CLOSELY MONITOR.
--- NOTE | 2016-08-29 06:41 | PN- Housestaff ---
JENIFFER BAKER,RUBIO 08/29/16 0640: Subjective Follow-up For: Glomerulonephritis petechial rash Kidney injury Cough Subjective: I saw and examined the patient today morning He is still on fluids, reporting cough which is more whitish. Reports significant faigue, decreased urination. No fevers, chills, pain. Rash appears much better. Review of Systems Constitutional: Reports: see HPI. Respiratory: Reports: cough, short of breath, wheezing. Comments: ROS negative except the above. Objective Last 24 Hrs of Vital Signs/I&O Vital Signs Date Time Temp Pulse Resp B/P Pulse O2 O2 Flow FiO2 Ox Delivery Rate 08/29 0000 Room Air 08/28 2221 97.6 107 20 122/80 95 Room Air 08/28 2102 97 Room Air 08/28 1448 97.7 80 20 130/70 95 08/28 1302 98 Room Air Room Air 08/28 1038 140/64 08/28 0800 97 08/28 0717 96.5 124 22 140/64 95 Room Air Intake & Output 08/29 0800 08/29 0000 08/28 1600 Intake Total 1080 1160 1280 Output Total 600 Balance 1080 1160 680 Intake, IV 600 800 800 Intake, Oral 480 360 480 Number 1 0 Bowel Movements Output, Urine 600 Physical Exam General Appearance: Alert, Oriented X3, Cooperative, Mild Distress Skin: rash getting better. HEENT: Atraumatic, PERRLA Neck: Supple Cardiovascular: Normal S1, Normal S2, No Murmurs Lungs: decreased breath sounds at the bases, no wheezing. Abdomen: Normal Bowel Sounds, Soft, No Tenderness Neurological: Normal Speech, Strength at 5/5 X4 Ext, Normal Tone, Sensation Intact Extremities: No Clubbing, No Cyanosis, rash present and 2+ edema over both the feet Vascular: Normal Pulses, Pulses Symmetrical Current Medications: Current Medications Sig/Dagoberto Start time Last Medication Dose Route Stop Time Status Admin Acetaminophen 650 MG .STK-MED ONE 08/28 215 DC PO 08/28 215 Acetaminophen 650 MG Q6P PRN 08/23 2345 AC 08/29 PO 0601 Albuterol Sulfate 3 ML BID 08/26 2200 AC 08/28 INH 1641 Benzonatate 100 MG TID PRN 08/25 1115 AC 08/29 PO 0451 Bisacodyl 5 MG DAILY 08/27 1358 AC 08/28 PO 1038 Folic Acid 1 MG DAILY 08/24 1000 AC 08/28 PO 1038 Guaifenesin 10 ML Q6P PRN 08/26 1530 AC 08/29 PO 0212 Lorazepam 0 Q1P PRN 08/24 2345 AC IV Metoprolol Tartrate 50 MG DAILY 08/24 1000 AC 08/28 PO 1038 Multivitamins 1 TAB DAILY 08/24 1000 AC 08/28 PO 1038 Phytonadione 5 MG DAILY 08/29 1000 AC PO Polyethylene Glycol 17 GM DAILY 08/27 1358 AC 08/28 PO 1038 Sodium Chloride 1,000 ML Q10H 08/28 1300 AC 08/28 IV 2155 Sodium Chloride 1,000 ML Q10H 08/27 1245 DC 08/28 IV 1037 Thiamine HCl 100 MG DAILY 08/24 1000 AC 08/28 PO 1038 Last 24 Hrs of Lab/Hemal Results Last 24 Hrs of Labs/Mics: Laboratory Tests 08/29/16 0730: Sodium Pending, Potassium Pending, Chloride Pending, Carbon Dioxide Pending, Anion Gap Pending, BUN Pending, Creatinine Pending, BUN/Creatinine Ratio Pending , PT 36.4 H, INR 3.51 H, CBC w Diff Pending, WBC Pending, RBC Pending, Hgb Pending, Hct Pending, MCV Pending, MCH Pending, RDW Pending, Plt Count Pending, MPV Pending, PUBS MCHC Pending 08/28/16 1430: Urinalysis MANY H, Urine Color AJIT, Urine Clarity CLDY H, Urine pH 6.0, Ur Specific [place] 1.025, Urine Protein >=300 H, Urine Ketones NEG, Urine Nitrite NEG, Urine Bilirubin NEG, Urine Urobilinogen 0.2, Ur Leukocyte Esterase TRACE H , Ur Microscopic SEDIMENT EXAMINED, Urine RBC >75 H, Urine WBC 5-10 H, Ur Epithelial Cells RARE, Urine Bacteria RARE H, Urine Hemoglobin LARGE H, Urine Glucose NEG 08/28/16 0845: Anion Gap 10, Estimated GFR 15 L, BUN/Creatinine Ratio 19.5 Microbiology 08/28 2249 BLOOD: Blood Culture - RECD 08/28 2225 STOOL: Clostridium difficile Toxin A & B - COLB 08/29 2219 BLOOD: Blood Culture - RECD Lines/Diet/Fluids Lines: peripheral lines Assessment/Plan Assessment: Patient is a 71-year-old male with past medical history significant for atrial fibrillation on Coumadin, hypertension, CAD status post stents, recently admitted 3 weeks ago after significant bleeding from varicose vein requiring 2 units transfusion with persistent swelling, discoloration for which she self administered himself with Lasix twice last week. He was admitted with worsening lower right leg pain and acute development of diffusely spreading petechial rash. Rash started on the lower extremities and started spreading all over to the upper extremities abdomen sparing pack and face. At admission he is afebrile with stable vitals. Labs significant for normal white count with BUN/creatinine 27/1.7, normal liver enzymes, INR 2.4 Fibrinogen activity 417, July nutrition products greater than 10, d-dimer 1789 UAs hazy with trace ketones, white count 5-10, RBC 15-25, leukocyte esterase trace. Hepatitis panel is negative, HIV nonreactive, antinuclear antibody negative, MARTIN and complement levels are negative. His ESR was 36, C-reactive protein 5.9. Venous Doppler negative for any deep vein thrombosis X-ray negative for involvement of bone Plan Rapidly proliferating Purpuric/petechial rash with dark urine and hemoptysis * Improving * At this point vascular disease is often primary differential, with other differentials including drug-induced, allergic, infectious. * Derm consulted -skin punch biopsy results pending. 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 Suspected Glomerulonephritis (HSP) * worsening renal function with Cr of 5.6 today with hematuria and proteinuria * UA is cloudy, bloody with positive nitrate and protein. * Urine random microglobulin is 114, total protein 558, sodium 7 and pr/cr ratio - 2.0 * We'll consider stopping IV fluids as his urinary output is reduced * We'll monitor I's and O's * post voidal urine was 90 mL, ultrasound ruled out post renal causes. * potassium restricted diet. Leukocytosis * patient had white count of 15 today with cough. * Afebrile with cultures negative so far * He also reports blood with sputum - Discontinued coumadin and Aspirin. * ID following - watching off antibiotics Right lower extremity ulcer Wound consult placed - suggesting wound cleansing and then moist wound care daily with either Adaptic or Xeroform and leg elevation while in bed. Acute renal failure * BUN/creatinine - 27/1.7 at admission * Nephro on board * transfered to Tele today in view of potential to develop arrhythmias due to electrolyte abnormalitis and cardiac history. * We will recheck BEP tomorrow Supratherapeutic INR * started on vitamin K. * No plan for reversal at this time as patient is not actively bleeding * If biopsy planned emergently will consider reversing it with FFP. Atrial fibrillation * On Coumadin at home - discontinued in the setting of hemoptysis. * Cardiology updated Hypertension * His home medication metoprolol 50 mg continued, however cardiology suggested to start Toprol XL 50mg - starting form tomorrow. Also advised statin - not starting now, as avoiding new medications to prevent Counfounding effect. CAD status post stents * Discontinued aspirin DVT prophylaxis * INR 4.48 CODE STATUS * DNR/DNI Problem List: 1. Petechial rash 2. Atrial fibrillation 3. Glomerulonephritis Pain Ratin Pain Location: n/a Pain Goal: Pain 4 or less Pain Plan: tylenol PRN Tomorrow's Labs & Rationales: as per telemetry Consulting Request: Consulting Specialty: Hematology/Oncology SHAAN CALLE MD 08/29/16 1122: Attending MD Review Statement Attending Statement Attending MD Statement: examined this patient, discuss w/resident/PA/COUNTERINTELLIGENCE SPECIALIST, agreed w/resident/PA/COUNTERINTELLIGENCE SPECIALIST, reviewed EMR data (avail), discussed with nursing, discussed with case mgmt, reviewed images, amended to note Attending Assessment/Plan: Patient seen and examined, not doing well at all. Now more fatigued, developing anasarca, wheezing. Vital Signs Date Time Temp Pulse Resp B/P Pulse O2 O2 Flow FiO2 Ox Delivery Rate 08/29 1055 116/78 08/29 0845 97 Room Air Room Air 08/29 0712 98.2 105 20 116/78 97 Room Air 08/29 0000 Room Air 08/28 2221 97.6 107 20 122/80 95 Room Air 08/28 2102 97 Room Air 08/28 1448 97.7 80 20 130/70 95 / 1302 98 Room Air Room Air on exam; aox3, looks tired. cv; s1,s2, rrr resp; + exp wheeze abd; soft, nt, bs+ ext; 2+ edema b/l skin; the rash has somewhat improved. Laboratory Tests 03/06 03/05 0730 1430 Chemistry Sodium (137 - 145 mmol/L) 130 L Potassium (3.5 - 5.1 mmol/L) 5.3 H Chloride (98 - 107 mmol/L) 99 Carbon Dioxide (22 - 30 mmol/L) 21 L Anion Gap (5 - 16) 11 BUN (9 - 20 mg/dL) 97 H Creatinine (0.7 - 1.2 mg/dL) 5.6 *H Estimated GFR (>60 ml/min) 10 L BUN/Creatinine Ratio (7 - 25 %) 17.3 Coagulation PT (9.4 - 12.5 SEC) 36.4 H INR (0.90 - 1.17) 3.51 H Hematology CBC w Diff NO MAN DIFF REQ WBC (4.8 - 10.8 /CUMM) 15.3 H RBC (4.70 - 6.10 /CUMM) 3.99 L Hgb (14.0 - 18.0 G/DL) 11.8 L Hct (42 - 52 %) 35.4 L MCV (80.0 - 94.0 FL) 88.8 MCH (27.0 - 31.0 PG) 29.6 RDW (11.5 - 14.5 %) 14.4 Plt Count (130 - 400 /CUMM) 159 MPV (7.4 - 10.4 FL) 8.4 Gran % (42.2 - 75.2 %) 81.9 H Lymphocytes % (20.5 - 51.1 %) 5.7 L Monocytes % (1.7 - 9.3 %) 12.4 H Eosinophils % (0 - 5 %) 0 Basophils % (0.0 - 2.0 %) 0 L Absolute Granulocytes (1.4 - 6.5 /CUMM) 12.6 H Absolute Lymphocytes (1.2 - 3.4 /CUMM) 0.9 L Absolute Monocytes (0.10 - 0.60 /CUMM) 1.9 H Absolute Eosinophils (0.0 - 0.7 /CUMM) 0 Absolute Basophils (0.0 - 0.2 /CUMM) 0 PUBS MCHC (33.0 - 37.0 G/DL) 33.4 Urines Urinalysis MANY H Urine Color (YEL,AMB,STR) AJIT Urine Clarity (CLEAR) CLDY H Urine pH (5.0 - 8.0) 6.0 Ur Specific [place] (1.001 - 1.035) 1.025 Urine Protein (NEG,<30 MG/DL) >=300 H Urine Ketones (NEG) NEG Urine Nitrite (NEG) NEG Urine Bilirubin (NEG) NEG Urine Urobilinogen (0.1 - 1.0 EU/dl) 0.2 Ur Leukocyte Esterase (NEG) TRACE H Ur Microscopic SEDIMENT EXAMINED Urine RBC (0 - 5 /HPF) >75 H Urine WBC (0 - 2 /HPF) 5-10 H Ur Epithelial Cells (NONE,FEW) RARE Urine Bacteria (NEG/NONE) RARE H Urine Hemoglobin (NEG) LARGE H Urine Glucose (N MG/DL) NEG A/P: 71 y/o M with pmh sig for hypertension, CAD status post stent placement, anemia, varicose veins, and a recent admission to for RLE venous insufficiency and bleeding varicose veins with acute blood loss anemia requiring 2 units of PRBC, now admitted with worsening lower extremity rash, had mild hemoptysis as well as acute renal failure. Creatinine is worsening. Patient was coagulopathic from the last 2 days and his INR was high. Had received vitamin K. Creatinine continues to get worse. Discussed with nephrology. We'll start pulse dose steroids. Skin biopsy results are still pending. Other workup so far is negative. Patient will need renal biopsy likely. He might also need dialysis if creatinine continues to get worse. We have stopped his IV fluids as he is not developing anasarca. Will continue to avoid all the nephrotoxic medications. H&H is relatively stable. DVT px; INR supratherpeutic. We should consult his biomedical photographer now that we are holding his Coumadin and reversing the INR for possible kidney biopsy as well as possibility of putting a tunneled catheter in for the dialysis. Patient has a history of atrial fibrillation.
[2016-08-29 07:12] VITALS: BP 116/78
[2016-08-29 08:16] LABS: PT 36.4 SEC (9.4-12.5)
[2016-08-29 08:54] LABS: ABSOLUTE BASOPHIL COUNT 0 /CUMM (0.0-0.2); ABSOLUTE EOSINOPHIL COUNT 0 /CUMM (0.0-0.7); ABSOLUTE GRANULOCYTE CT 12.6 /CUMM (1.4-6.5); ABSOLUTE LYMPH COUNT 0.9 /CUMM (1.2-3.4); ABSOLUTE MONOCYTE COUNT 1.9 /CUMM (0.10-0.60); BASOPHIL % 0 % (0.0-2.0); EOSINOPHIL % 0 % (0-5); GRANULOCYTE % 81.9 % (42.2-75.2); HEMATOCRIT 35.4 % (42-52); MEAN CORPUSCULAR HGB 29.6 PG (27.0-31.0); MEAN CORPUSCULAR HGB CONC 33.4 G/DL (33.0-37.0); MEAN CORPUSCULAR VOLUME 88.8 FL (80.0-94.0); MEAN PLATELET VOLUME 8.4 FL (7.4-10.4); PLATELET COUNT 159 /CUMM (130-400); RBC DISTRIBUTION WIDTH 14.4 % (11.5-14.5); RED BLOOD CELL CT 3.99 /CUMM (4.70-6.10); WHITE BLOOD CELL COUNT 15.3 /CUMM (4.8-10.8)
--- NOTE | 2016-08-29 09:04 | PN- Pulmonary ---
Subjective HPI/Critical Care Issues: The patient is awake and alert. He reports feeling more fatigued. His rash has improved. He denies any respiratory complaints. Specifically, he feels he is no longer coughing up a significant amount of blood. He ambulated with physical therapy today noting that he did well. Objective Current Medications: Current Medications Sig/Dagoberto Start time Last Medication Dose Route Stop Time Status Admin Acetaminophen 650 MG .STK-MED ONE 08/28 2154 DC PO 08/28 2155 Acetaminophen 650 MG Q6P PRN 08/23 2345 AC 08/29 PO 0601 Albuterol Sulfate 3 ML BID 08/26 2200 AC 08/29 INH 0844 Benzonatate 100 MG TID PRN 08/25 1115 AC 08/29 PO 0451 Bisacodyl 5 MG DAILY 08/27 1358 AC 08/28 PO 1038 Folic Acid 1 MG DAILY 08/24 1000 AC 08/28 PO 1038 Guaifenesin 10 ML Q6P PRN 08/26 1530 AC 08/29 PO 0212 Lorazepam 0 Q1P PRN 08/24 2345 AC IV Metoprolol Tartrate 50 MG DAILY 08/24 1000 AC 08/28 PO 1038 Multivitamins 1 TAB DAILY 08/24 1000 AC 08/28 PO 1038 Phytonadione 5 MG DAILY 08/29 1000 AC PO Polyethylene Glycol 17 GM DAILY 08/27 1358 AC 08/28 PO 1038 Sodium Chloride 1,000 ML Q10H 08/28 1300 DC 08/28 IV 2155 Sodium Chloride 1,000 ML Q10H 08/27 1245 DC 08/28 IV 1037 Thiamine HCl 100 MG DAILY 08/24 1000 AC 08/28 PO 1038 Vital Signs & I&O Last 24 Hrs of Vitals and I&O: Vital Signs Date Time Temp Pulse Resp B/P Pulse O2 O2 Flow FiO2 Ox Delivery Rate 08/29 0845 97 Room Air Room Air 08/29 0712 98.2 105 20 116/78 97 Room Air 08/29 0000 Room Air 08/28 2221 97.6 107 20 122/80 95 Room Air / 2102 97 Room Air / 1448 97.7 80 20 130/70 95 / 1302 98 Room Air Room Air 08/28 1038 140/64 Intake & Output 08/29 1600 08/29 0800 08/29 0000 Intake Total 1080 1160 Output Total Balance 1080 1160 Intake, IV 600 800 Intake, Oral 480 360 Number 1 Bowel Movements Physical Exam General Appearance: well developed/nourished, alert, awake Head: atraumatic, normal appearance Neck: normal inspection, supple Respiratory: normal breath sounds, no respiratory distress, lungs clear Cardiovascular: regular rate/rhythm (S1 and S2 heard) Gastrointestinal: normal bowel sounds, soft, non-tender Extremities: right lower extremity ecchymosis with a dressing in place Skin: diffuse petechial rash over the lower extremities, anterior abdomen, and forearms, improving Results Last 24 Hrs of Lab Results: Laboratory Tests 08/29/16 0730: Anion Gap 11, Estimated GFR 10 L, BUN/Creatinine Ratio 17.3, PT 36.4 H, INR 3.51 H, CBC w Diff Pending, WBC Pending, RBC Pending, Hgb Pending, Hct Pending, MCV Pending, MCH Pending, RDW Pending, Plt Count Pending, MPV Pending, PUBS MCHC Pending 08/28/16 1430: Urinalysis MANY H, Urine Color AJIT, Urine Clarity CLDY H, Urine pH 6.0, Ur Specific [place] 1.025, Urine Protein >=300 H, Urine Ketones NEG, Urine Nitrite NEG, Urine Bilirubin NEG, Urine Urobilinogen 0.2, Ur Leukocyte Esterase TRACE H , Ur Microscopic SEDIMENT EXAMINED, Urine RBC >75 H, Urine WBC 5-10 H, Ur Epithelial Cells RARE, Urine Bacteria RARE H, Urine Hemoglobin LARGE H, Urine Glucose NEG Diagnostic Data CXR Findings: Cardiomegaly without pulmonary edema. Small pleural effusions. Right basilar atelectasis. Impression/Plan Impression/Plan Impression/Plan: 1. Hemoptysis - resolved. 2. Minimal nonspecific ground glass opacities, atelectasis. No evidence of ILD. 3. Nonspecific lung nodules which will need ongoing follow up in 3-6 months. 4. Very small bilateral effusions, not enough to tap. 5. Extensive petechial rash - improving. Skin biopsy results are pending. 6. 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 7. Hyponatremia. 8. Increasing leukocytosis - etiology? Recommendations: * Agree with vitamin K administration and attempt to reverse the INR. * Continue to monitor for hemoptysis. * Follow-up sputum culture results and cytology. * Follow-up skin biopsy results. * Continue multivitamin, thiamine and folate. * TRC for nebulizer treatments as needed. * Management of worsening renal failure as per nephrology. * We will also need to follow up ID input due to worsening leukocytosis. * Continue all supportive care.
--- NOTE | 2016-08-29 10:44 | PN- Nephrology ---
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 I cannot rule out that current rise in WBC is not 2/2 GN as there is no clear sepsis (afebrile and WBC now downtrending - imaging negative). I think it's it's worth starting pulse dose steroids today. He needs to have a biopsy as well which is not as emergent and will be dependent on his INR coming down. Unfortunately, his renal function is worsening to the point that he will need dialysis. If his SCr continues to rise tomorrow, we should plan for a dialysis catheter to be placed tomorrow and then we can initiate dialysis either tomorrow or Monday. At this point in time with the serologic tests available and lack of pulmonary hemorrhage, there is no clear indication for plasmapheresis. Hyponatremia - Stable. Hyperkalemia - Stable Suggestion: -Will plan for 1000mg methylprednisolone daily x 3 days followed by 60mg PO prednisone daily -f/u cryoglobulin -Please make sure to send rheumatoid factor, SPEP, Atlas Lambda Free Light Chains, and anti-GBM Ab -Please call me when skin biopsy results are back -Would plan for tunneled dialysis catheter tomorrow if SCr continues to increase -Continue to hold aspirin -Would give additional PO Vit K to help bring down INR -Tentative plans for renal biopsy later this week depending on INR - would consult and make tentative plans for this with IR on Monday (if they are OK with ASA having been given on 08/25) Please call [phone] with ?'s Subjective Subjective: SCr continues to rise - now 5.6 WBC down to [address] A/P and chest x-ray neg for focal infection C diff pending - patient says that diarrhea is not profuse Skin biopsy results still pending Pt reports feeling tired Urine spun and analyzed yesterday by me - innumerable RBC's, some of which were dysmorphic - granular casts overlaid with RBC's but unable to find RBC casts Objective Vital Signs and I&Os Vital Signs Date Time Temp Pulse Resp B/P Pulse O2 O2 Flow FiO2 Ox Delivery Rate 08/29 0845 97 Room Air Room Air 08/29 0712 98.2 105 20 116/78 97 Room Air 08/29 0000 Room Air 08/28 2221 97.6 107 20 122/80 95 Room Air 08/28 2102 97 Room Air 08/28 1448 97.7 80 20 130/70 95 03 1302 98 Room Air Room Air 08/28 1038 140/64 Intake & Output 08/29 1600 08/29 0400 08/28 1600 08/28 0400 08/27 1600 08/27 0400 Intake Total 1080 1160 2130 1500 835 480 Output Total 600 Balance 1080 1160 1530 1500 835 480 Intake, IV 532 476 7124 800 75 Intake, Oral 480 360 530 700 760 480 Number 1 0 1 Bowel Movements Output, Urine 600 Physical Exam: Gen - OK appearing HEENT - supple CV - RRR Chest - clear Abd - soft, nontender to palpation Lower ext - RLE enlarged Skin - innumerrable nonblanching petechial lesions on legs - nontender but palpable, RLE fully purple/red in color Neuro - AOX3 Current Medications: Current Medications Sig/Dagoberto Start time Last Medication Dose Route Stop Time Status Admin Acetaminophen 650 MG .STK-MED ONE 08/28 2154 DC PO 08/28 2155 Acetaminophen 650 MG Q6P PRN 08/23 2345 AC 08/29 PO 0601 Albuterol Sulfate 3 ML BID 08/26 2200 AC 08/29 INH 0844 Benzonatate 100 MG TID PRN 08/25 1115 AC 08/29 PO 0451 Bisacodyl 5 MG DAILY 08/27 1358 AC 08/28 PO 1038 Folic Acid 1 MG DAILY 08/24 1000 AC 08/28 PO 1038 Guaifenesin 10 ML .STK-MED ONE 08/29 0210 DC PO 08/29 0211 Guaifenesin 10 ML Q6P PRN 08/26 1530 AC 08/29 PO 0212 Lorazepam 0 Q1P PRN 08/24 2345 AC IV Metoprolol Tartrate 50 MG DAILY 08/24 1000 AC 08/28 PO 1038 Multivitamins 1 TAB DAILY 08/24 1000 AC 08/28 PO 1038 Phytonadione 5 MG DAILY 08/29 1000 AC PO Polyethylene Glycol 17 GM DAILY 08/27 1358 AC 08/28 PO 1038 Sodium Chloride 1,000 ML Q10H 08/28 1300 DC 03 IV 2155 Sodium Chloride 1,000 ML Q10H 08/27 1245 DC 08/28 IV 1037 Thiamine HCl 100 MG DAILY 08/24 1000 AC 08/28 PO 1038 Results Pertinent Lab Results: Laboratory Tests 08/29 03 0730 1430 Chemistry Sodium (137 - 145 mmol/L) 130 L Potassium (3.5 - 5.1 mmol/L) 5.3 H Chloride (98 - 107 mmol/L) 99 Carbon Dioxide (22 - 30 mmol/L) 21 L Anion Gap (5 - 16) 11 BUN (9 - 20 mg/dL) 97 H Creatinine (0.7 - 1.2 mg/dL) 5.6 *H Estimated GFR (>60 ml/min) 10 L BUN/Creatinine Ratio (7 - 25 %) 17.3 Coagulation PT (9.4 - 12.5 SEC) 36.4 H INR (0.90 - 1.17) 3.51 H Hematology CBC w Diff NO MAN DIFF REQ WBC (4.8 - 10.8 /CUMM) 15.3 H RBC (4.70 - 6.10 /CUMM) 3.99 L Hgb (14.0 - 18.0 G/DL) 11.8 L Hct (42 - 52 %) 35.4 L MCV (80.0 - 94.0 FL) 88.8 MCH (27.0 - 31.0 PG) 29.6 RDW (11.5 - 14.5 %) 14.4 Plt Count (130 - 400 /CUMM) 159 MPV (7.4 - 10.4 FL) 8.4 Gran % (42.2 - 75.2 %) 81.9 H Lymphocytes % (20.5 - 51.1 %) 5.7 L Monocytes % (1.7 - 9.3 %) 12.4 H Eosinophils % (0 - 5 %) 0 Basophils % (0.0 - 2.0 %) 0 L Absolute Granulocytes (1.4 - 6.5 /CUMM) 12.6 H Absolute Lymphocytes (1.2 - 3.4 /CUMM) 0.9 L Absolute Monocytes (0.10 - 0.60 /CUMM) 1.9 H Absolute Eosinophils (0.0 - 0.7 /CUMM) 0 Absolute Basophils (0.0 - 0.2 /CUMM) 0 PUBS MCHC (33.0 - 37.0 G/DL) 33.4 Urines Urinalysis MANY H Urine Color (YEL,AMB,STR) AJIT Urine Clarity (CLEAR) CLDY H Urine pH (5.0 - 8.0) 6.0 Ur Specific [place] (1.001 - 1.035) 1.025 Urine Protein (NEG,<30 MG/DL) >=300 H Urine Ketones (NEG) NEG Urine Nitrite (NEG) NEG Urine Bilirubin (NEG) NEG Urine Urobilinogen (0.1 - 1.0 EU/dl) 0.2 Ur Leukocyte Esterase (NEG) TRACE H Ur Microscopic SEDIMENT EXAMINED Urine RBC (0 - 5 /HPF) >75 H Urine WBC (0 - 2 /HPF) 5-10 H Ur Epithelial Cells (NONE,FEW) RARE Urine Bacteria (NEG/NONE) RARE H Urine Hemoglobin (NEG) LARGE H Urine Glucose (N MG/DL) NEG 08/28 08/28 0845 0620 Chemistry Sodium (137 - 145 mmol/L) 128 L Potassium (3.5 - 5.1 mmol/L) 5.3 H Chloride (98 - 107 mmol/L) 100 Carbon Dioxide (22 - 30 mmol/L) 18 L Anion Gap (5 - 16) 10 BUN (9 - 20 mg/dL) 76 H Creatinine (0.7 - 1.2 mg/dL) 3.9 H Estimated GFR (>60 ml/min) 15 L BUN/Creatinine Ratio (7 - 25 %) 19.5 Coagulation PT (9.4 - 12.5 SEC) 46.3 *H INR (0.90 - 1.17) 4.48 *H Hematology CBC w Diff NO MAN DIFF REQ WBC (4.8 - 10.8 /CUMM) 22.3 H RBC (4.70 - 6.10 /CUMM) 4.09 L Hgb (14.0 - 18.0 G/DL) 12.2 L Hct (42 - 52 %) 36.9 L MCV (80.0 - 94.0 FL) 90.3 MCH (27.0 - 31.0 PG) 29.8 RDW (11.5 - 14.5 %) 14.2 Plt Count (130 - 400 /CUMM) 162 MPV (7.4 - 10.4 FL) 8.5 Gran % (42.2 - 75.2 %) 84.2 H Lymphocytes % (20.5 - 51.1 %) 3.6 L Monocytes % (1.7 - 9.3 %) 12.2 H Eosinophils % (0 - 5 %) 0 Basophils % (0.0 - 2.0 %) 0 L Absolute Granulocytes (1.4 - 6.5 /CUMM) 18.8 H Absolute Lymphocytes (1.2 - 3.4 /CUMM) 0.8 L Absolute Monocytes (0.10 - 0.60 /CUMM) 2.7 H Absolute Eosinophils (0.0 - 0.7 /CUMM) 0 Absolute Basophils (0.0 - 0.2 /CUMM) 0 PUBS MCHC (33.0 - 37.0 G/DL) 33.0 03/04 03/04 03/ 1117 0753 0705 Chemistry Sodium (137 - 145 mmol/L) 129 L Potassium (3.5 - 5.1 mmol/L) 5.6 H Chloride (98 - 107 mmol/L) 99 Carbon Dioxide (22 - 30 mmol/L) 20 L Anion Gap (5 - 16) 10 BUN (9 - 20 mg/dL) 57 H Creatinine (0.7 - 1.2 mg/dL) 2.6 H Estimated GFR (>60 ml/min) 24 L BUN/Creatinine Ratio (7 - 25 %) 21.9 Cortisol AM Sample (4.46 - 22.7 ug/dL) 59.4 H Coagulation PT (9.4 - 12.5 SEC) 41.8 H INR (0.90 - 1.17) 4.04 *H Hematology CBC w Diff NO MAN DIFF REQ WBC (4.8 - 10.8 /CUMM) 21.5 H RBC (4.70 - 6.10 /CUMM) 3.99 L Hgb (14.0 - 18.0 G/DL) 12.0 L Hct (42 - 52 %) 35.8 L MCV (80.0 - 94.0 FL) 89.9 MCH (27.0 - 31.0 PG) 30.1 RDW (11.5 - 14.5 %) 13.8 Plt Count (130 - 400 /CUMM) 140 MPV (7.4 - 10.4 FL) 8.4 Gran % (42.2 - 75.2 %) 85.2 H Lymphocytes % (20.5 - 51.1 %) 2.5 L Monocytes % (1.7 - 9.3 %) 12.3 H Eosinophils % (0 - 5 %) 0 Basophils % (0.0 - 2.0 %) 0 L Absolute Granulocytes (1.4 - 6.5 /CUMM) 18.3 H Absolute Lymphocytes (1.2 - 3.4 /CUMM) 0.5 L Absolute Monocytes (0.10 - 0.60 /CUMM) 2.6 H Absolute Eosinophils (0.0 - 0.7 /CUMM) 0 Absolute Basophils (0.0 - 0.2 /CUMM) 0 PUBS MCHC (33.0 - 37.0 G/DL) 33.5 Immunology Cryoglobulin Interp Pending 08/26 08/26 08/26 1722 1700 1700 Immunology Cryoglobulin Interp Pending Miscellaneous Ref Lab Test Result Cancelled Urines Urinalysis MOD H Urine Color (YEL,AMB,STR) BLDY H Urine Clarity (CLEAR) CLDY H Urine pH (5.0 - 8.0) 5.5 Ur Specific [place] (1.001 - 1.035) >= 1.030 Urine Protein (NEG,<30 MG/DL) >=300 H Urine Ketones (NEG) NEG Urine Nitrite (NEG) POS H Urine Bilirubin (NEG) POS@ICTO H Urine Urobilinogen (0.1 - 1.0 EU/dl) 0.2 Ur Leukocyte Esterase (NEG) TRACE H Ur Microscopic SEDIMENT EXAMINED Urine RBC (0 - 5 /HPF) >75 H Urine WBC (0 - 2 /HPF) 10-15 H Ur Epithelial Cells (NONE,FEW) MOD H Hyaline Casts (0/LPF) FEW H Granular Casts (NONE /LPF) FEW H Urine Hemoglobin (NEG) LARGE H Urine Osmolality (300 - 1000 MOSM/KG) 442 Ur Random Creatinine (mg/dL) 307.2 Ur Random Microalbumin (<1.7 mg/dl) > 114.0 H Ur Random Sodium (30 - 90 mmol/L) 7 L Ur Random Potassium (mmol/L) 76.3 Fraction Sodium Excret (<1% %) 0.0 Urine Glucose (N MG/DL) NEG U Cystine/Creat Ratio (mcg/mg) 08/26 1321 Urines Ur Random Creatinine (mg/dL) 280 U Random Total Protein (0 - 12 mg/dL) 558.2 H Protein/Creatinin Ratio (< 0.2) 2.00 H Imaging/Other Studies: CT, Chest x-ray, and Renal U/S reviewed
--- NOTE | 2016-08-29 11:52 | Discharge Summary ---
Hospital Course Course Consulting Request: Consulting Specialty: Hematology/Oncology Allergies: Coded Allergies: NO KNOWN ALLERGIES (08/23/16)
--- NOTE | 2016-08-29 12:34 | Cons- Cardiology ---
General Information and HPI Consulting Request Date of Consult: 08/29/16 Requested By: SHAAN LEBLANC MD Reason for Consult: Atrial fibrillation, coronary artery disease Source of Information: patient, old records History of Present Illness: This is a 71-year-old male with past medical history of atrial fibrillation on anticoagulation with Coumadin, prior myocardial infarct, chronic coronary artery disease with prior PCI, chronic left bundle-branch block, hypertension, and venous insufficiency who presented to [facility] on 08/23 with a chief complaint of bilateral petechial rash along with some fatigue and increased lower extremity pain. He did have a recent admission for lower extremity bleeding varicosity which was evaluated by vascular. He did require a transfusion for that admission. He denies any chest pain or palpitations but does note an intermittent productive cough with some blood tinged sputum. He has been evaluated by multiple teams here in the hospital including nephrology, pulmonary, hematology, and ID. He has had progressive renal failure while here in the hospital. His last nuclear stress test was in December 2015 which showed moderate inferior infarct with ejection fraction of 45%. The patient is planned for renal biopsy and may require dialysis. The patient has had some low-level abdominal discomfort. Denies syncope, orthopnea, paroxysmal nocturnal dyspnea, headache, slurring of speech, or focal weakness. Allergies/Medications Allergies: Coded Allergies: NO KNOWN ALLERGIES (08/23/16) Home Med List: Aspirin (Aspirin*) 81 MG TAB.CHEW 81 MG PO DAILY HEART HEALTH (Reported) Metoprolol Tartrate 50 MG TABLET 1 TAB PO DAILY AFIB (Reported) Multivit-Min/FA/Lycopen/Lutein (Centrum Silver Men Tablet) 300 MCG-600 MCG-300 MCG TABLET 1 TAB PO DAILY SUPPLEMENT (Reported) Warfarin Sodium 5 MG TABLET 0.5 TAB PO 1700 BLOOD THINNER (Reported) Please check your INR regularly to keep in between 2-3. Warfarin Sodium 5 MG TABLET 1 TAB PO 1700 BLOOD THINNER (Reported) Please check your INR regularly to keep it in between 2-3. Current Medications: Current Medications Sig/Dagoberto Start time Last Medication Dose Route Stop Time Status Admin Acetaminophen 650 MG .STK-MED ONE 08/28 215 DC PO 08/28 215 Acetaminophen 650 MG Q6P PRN 08/23 2345 AC 08/29 PO 0601 Albuterol Sulfate 3 ML BID 08/26 2200 AC 08/29 INH 0844 Benzonatate 100 MG TID PRN 08/25 1115 AC 08/29 PO 0451 Bisacodyl 5 MG DAILY 08/27 1358 AC 08/29 PO 1055 Cholecalciferol 1,000 IU DAILY 08/29 1046 AC PO Folic Acid 1 MG DAILY 08/24 1000 AC 08/29 PO 1054 Guaifenesin 10 ML .STK-MED ONE 08/29 0210 DC PO 08/29 0211 Guaifenesin 10 ML Q6P PRN 08/26 1530 AC 08/29 PO 1057 Lorazepam 0 Q1P PRN 08/24 2345 AC IV Methylprednisolone 1,000 MG DAILY 08/29 1053 CAN Dextrose/Water 1,000 ML IV Methylprednisolone 1,000 MG EVERY 24 HRS 08/29 1045 DC IV 08/31 1001 Methylprednisolone 1,000 MG DAILY 08/29 1045 AC Sodium Chloride 1,000 ML IV 08/31 1359 Metoprolol Tartrate 50 MG DAILY 08/24 1000 AC 08/29 PO 1055 Multivitamins 1 TAB DAILY 08/24 1000 AC 08/29 PO 1054 Omeprazole 40 MG DAILY AC 08/29 1045 AC PO Phytonadione 5 MG ONCE ONE 08/29 1100 DC PO 08/29 1101 Phytonadione 5 MG DAILY 08/29 1000 AC PO Polyethylene Glycol 17 GM DAILY 08/27 1358 AC 08/28 PO 1038 Prednisone 60 MG DAILY 09/01 1000 AC PO Sodium Chloride 1,000 ML Q10H 08/28 1300 DC 08/28 IV 2155 Thiamine HCl 100 MG DAILY 08/24 1000 AC 08/29 PO 1055 Review of Systems Review of Systems: Review of systems as per HPI. The remainder of a 10 point review of systems was reviewed and was otherwise negative. 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 child Services at Home: None Primary Language: [place] Smoking Status: Never Smoked ETOH Use: occasional use Illicit Drug Use: denies illicit drug use Functional Ability ADLs Independent: dressing, eating, toileting, bathing. Ambulation: independent IADLs Independent: shopping, housework, finances, food prep, telephone, transportation , medication admin. 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) Exam & Diagnostic Data Vital Signs and I&O Vital Signs Date Time Temp Pulse Resp B/P Pulse O2 O2 Flow FiO2 Ox Delivery Rate 08/29 1055 116/78 08/29 0845 97 Room Air Room Air 08/29 0712 98.2 105 20 116/78 97 Room Air 08/29 0000 Room Air 08/28 2221 97.6 107 20 122/80 95 Room Air 08/28 2102 97 Room Air 08/28 1448 97.7 80 20 130/70 95 08/28 1302 98 Room Air Room Air Intake & Output 08/29 1600 08/29 0800 08/29 0000 08/28 1600 08/28 0800 08/28 0000 Intake Total 1080 1160 7379 041 1704 Output Total 600 Balance 1080 1160 084 543 2437 Intake, IV 600 800 800 800 800 Intake, Oral 480 360 480 50 700 Number 1 0 Bowel Movements Output, Urine 600 Physical Exam: General: no apparent distress. Alert. Laying flat. Eyes: No obvious scleral icterus. HEENT: No jugular venous distention or abnormal jugular venous pulsations. Cardiovascular: Normal intensity S1/S2. Irregular. Respiratory: Mildly decreased air entry at the bases Abdomen: Soft, nontender with no guarding or rebound tenderness. Musculoskeletal: No clubbing or cyanosis noted, trace LE edema bilaterally Skin: Petechial rash noted, warm Neurologic: No gross focal deficits noted. Labs/Hemal Results: Laboratory Tests 08/29 08/28 0730 1430 Chemistry Sodium (137 - 145 mmol/L) 130 L Potassium (3.5 - 5.1 mmol/L) 5.3 H Chloride (98 - 107 mmol/L) 99 Carbon Dioxide (22 - 30 mmol/L) 21 L Anion Gap (5 - 16) 11 BUN (9 - 20 mg/dL) 97 H Creatinine (0.7 - 1.2 mg/dL) 5.6 *H Estimated GFR (>60 ml/min) 10 L BUN/Creatinine Ratio (7 - 25 %) 17.3 Coagulation PT (9.4 - 12.5 SEC) 36.4 H INR (0.90 - 1.17) 3.51 H Hematology CBC w Diff NO MAN DIFF REQ WBC (4.8 - 10.8 /CUMM) 15.3 H RBC (4.70 - 6.10 /CUMM) 3.99 L Hgb (14.0 - 18.0 G/DL) 11.8 L Hct (42 - 52 %) 35.4 L MCV (80.0 - 94.0 FL) 88.8 MCH (27.0 - 31.0 PG) 29.6 RDW (11.5 - 14.5 %) 14.4 Plt Count (130 - 400 /CUMM) 159 MPV (7.4 - 10.4 FL) 8.4 Gran % (42.2 - 75.2 %) 81.9 H Lymphocytes % (20.5 - 51.1 %) 5.7 L Monocytes % (1.7 - 9.3 %) 12.4 H Eosinophils % (0 - 5 %) 0 Basophils % (0.0 - 2.0 %) 0 L Absolute Granulocytes (1.4 - 6.5 /CUMM) 12.6 H Absolute Lymphocytes (1.2 - 3.4 /CUMM) 0.9 L Absolute Monocytes (0.10 - 0.60 /CUMM) 1.9 H Absolute Eosinophils (0.0 - 0.7 /CUMM) 0 Absolute Basophils (0.0 - 0.2 /CUMM) 0 PUBS MCHC (33.0 - 37.0 G/DL) 33.4 Immunology Rheum Factor Semi-Quant (<12 IU/Ml) 13.9 H Urines Urinalysis MANY H Urine Color (YEL,AMB,STR) AJIT Urine Clarity (CLEAR) CLDY H Urine pH (5.0 - 8.0) 6.0 Ur Specific [place] (1.001 - 1.035) 1.025 Urine Protein (NEG,<30 MG/DL) >=300 H Urine Ketones (NEG) NEG Urine Nitrite (NEG) NEG Urine Bilirubin (NEG) NEG Urine Urobilinogen (0.1 - 1.0 EU/dl) 0.2 Ur Leukocyte Esterase (NEG) TRACE H Ur Microscopic SEDIMENT EXAMINED Urine RBC (0 - 5 /HPF) >75 H Urine WBC (0 - 2 /HPF) 5-10 H Ur Epithelial Cells (NONE,FEW) RARE Urine Bacteria (NEG/NONE) RARE H Urine Hemoglobin (NEG) LARGE H Urine Glucose (N MG/DL) NEG 08/28 08/28 0845 0620 Chemistry Sodium (137 - 145 mmol/L) 128 L Potassium (3.5 - 5.1 mmol/L) 5.3 H Chloride (98 - 107 mmol/L) 100 Carbon Dioxide (22 - 30 mmol/L) 18 L Anion Gap (5 - 16) 10 BUN (9 - 20 mg/dL) 76 H Creatinine (0.7 - 1.2 mg/dL) 3.9 H Estimated GFR (>60 ml/min) 15 L BUN/Creatinine Ratio (7 - 25 %) 19.5 Coagulation PT (9.4 - 12.5 SEC) 46.3 *H INR (0.90 - 1.17) 4.48 *H Hematology CBC w Diff NO MAN DIFF REQ WBC (4.8 - 10.8 /CUMM) 22.3 H RBC (4.70 - 6.10 /CUMM) 4.09 L Hgb (14.0 - 18.0 G/DL) 12.2 L Hct (42 - 52 %) 36.9 L MCV (80.0 - 94.0 FL) 90.3 MCH (27.0 - 31.0 PG) 29.8 RDW (11.5 - 14.5 %) 14.2 Plt Count (130 - 400 /CUMM) 162 MPV (7.4 - 10.4 FL) 8.5 Gran % (42.2 - 75.2 %) 84.2 H Lymphocytes % (20.5 - 51.1 %) 3.6 L Monocytes % (1.7 - 9.3 %) 12.2 H Eosinophils % (0 - 5 %) 0 Basophils % (0.0 - 2.0 %) 0 L Absolute Granulocytes (1.4 - 6.5 /CUMM) 18.8 H Absolute Lymphocytes (1.2 - 3.4 /CUMM) 0.8 L Absolute Monocytes (0.10 - 0.60 /CUMM) 2.7 H Absolute Eosinophils (0.0 - 0.7 /CUMM) 0 Absolute Basophils (0.0 - 0.2 /CUMM) 0 PUBS MCHC (33.0 - 37.0 G/DL) 33.0 Diagnostic Data EKG Results Tracing was personally reviewed and shows atrial fibrillation at 112 bpm with left bundle-branch block CXR Results Cardiomegaly without pulmonary edema. Small pleural effusions. Right basilar atelectasis. DICTATED BY: JAGUAR THORNTON MD DATE/TIME DICTATED:08/28/162358 Other Results Renal US IMPRESSION: No definite evidence to suggest medical renal disease. No evidence of hydronephrosis.. Outpatient echocardiogram from November 2015 showed moderate LV dysfunction with an EF of 35-40% Assessment/Plan Assessment/Plan 1. Progressive renal failure with hyperkalemia with suspicion for glomerulonephritis 2. Persistent atrial fibrillation on anticoagulation with Coumadin 3. History of coronary artery disease/prior myocardial infarction with mild to moderate left ventricular dysfunction by previous noninvasive imaging 4. Hyponatremia 5. Small bilateral pleural effusions 6. Chronic left bundle branch block 7. Hx HTN 8. Venous insufficiency The patient has developed progressive renal failure with hyperkalemia. Given his known history of coronary artery disease with prior myocardial infarct and depressed ejection fraction along with the hyperkalemia he is at risk of potential arrhythmia and should be transferred to telemetry. It does not appear he was on outpatient LISETH inhibitor therapy but would certainly not initiate that at this time given the renal failure. He is currently receiving a short acting metoprolol only once daily, this should be changed to Toprol-XL 50 mg by mouth daily. Aspirin and Coumadin are on hold pending renal biopsy and HAY cath placement, recommend starting IV heparin drip when INR falls below 2.0. Recommend adding low-dose Lipitor 20 mg by mouth daily if no medical content indication at this time. Would recommend obtaining a repeat echocardiogram while monitoring closely for worsening volume overload. Recommendations were discussed with the medical attending Dr. Leblanc. oJnh Stanley MD [facility] Consult Acknowledgment - Thank you for your consult request.
--- NOTE | 2016-08-29 13:57 | Transfer of Care Summary ---
Hospital Course Course Hospital Course: Patient is a 71-year-old male with past medical history significant for atrial fibrillation on Coumadin, hypertension, CAD status post stents, recently admitted 3 weeks ago after significant bleeding from varicose vein requiring 2 units transfusion with persistent swelling, discoloration for which she self administered himself with Lasix twice last week. He was admitted with worsening lower right leg pain and acute development of diffusely spreading petechial rash. Rash started on the lower extremities and started spreading all over to the upper extremities abdomen sparing pack and face. At admission he is afebrile with stable vitals. Labs significant for normal white count with BUN/creatinine 27/1.7, normal liver enzymes, INR 2.4 His ESR was 36, C-reactive protein 5.9. Venous Doppler negative for any deep vein thrombosis X-ray negative for involvement of bone Intially admitted to general medicine - the following problems are being addressed everyday Rapidly proliferating Purpuric/petechial rash with dark urine and hemoptysis Initially presented with a rapidly proliferating petechial rash following a viral URI with dark urine. Intially he was in [facility] with hazy urine (trace ketones, mild hematuria, proteinuria) at presentation. Dermatology consulted - advised punch biopsy. Intially DIC suspected - had an extensive work up. Labs results include Fibrinogen activity 417, Fibrin degradation products greater than 10, d-dimer 1789, UA hazy. Hepatitis panel is negative, HIV nonreactive, antinuclear antibody negative, MARTIN and complement levels are negative. His ESR was 36, C-reactive protein 5.9. Biopsy is done on 08/25/16 by . prelimnary report suggests PMN's around blood vessels - Leukocytoclastic vasculitis being first differential. Awaiting patholgy results. Nephro requested Immunofluorescence yesterday - but apparently it needs a fresh tissue ( unavailable now). Currently rash appears improving without any evident acute flareups. He denies any itching, discharge form the skin at any point. HEMOPTYSIS --> He developed hemoptysis with significant wheezing and cough on 08/25/16, CT chest without contrast didnt suggest any acute pathology. As it progressed sputum cytology and culture are requested which were negative so far. Discontinued on aspirin. Hemoptysis got better, but cough, shortness of breath and wheezing are persistent. Saturating well on room air. 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 Intially improved with fluids followed by worsening of creatinine with repeated UA showing significant hematuria, proteinuria, raised urine random microalbumin 114, total protien of 558 and pr/cr ratio - 2.0. His urinary output reduced gradually & on NS @50cc/hr as per nephro with a net postive balance. Needs follow up with cryoglobulin levels, RF, SPEP, IPEP. he was kept off anticoagulation from august 26 for a renal biopsy despite which his INR kept creaping up. So started on oral vitamin K from august 28. Started empirically on steroids today with IV methylprednisone 1gm X 3days. Acute Renal Failure Intially presented withg BUN/creatinine - 27/1.7 which improved with fluids. After 2days it started increasing despite fluids. Nephro consulted as his urine is showing gloerulonephritis picture. His BUN/Cr - creaping up in the past 3days with 57/2.6-->76/3.7-->97/5.6. GFR is down from 40 (stage IV) initially to 10 today (stage V). Needs an katelyn catheter placement tomorrow for dialysis in the setting of fluid overload. Cardiology consulted today in view of his hyperkalemia and preceeding CAD with stents - advised to transfer to telemetry in view of potential arrhythmias. His post voidal urine was 90 mL on 08/27/16 with normal appearing kidneys on August 25 ultrasound ruling out post obsturction failure. On potassium restricted diet. Supratherapeutic INR INR increased after discontinuation of warfarin. Started on oral vitamin k for renal biopsy. Leukocytosis Admitted with normal white count, started to increase since august 26 with 22k yesterday, got better today (15). Afebrile with cultures negative so far. ID consulted - following off antibiotics. Atrial fibrillation * On Coumadin at home - discontinued in the setting of hemoptysis. Right lower extremity ulcer Wound consult placed - suggesting wound cleansing and then moist wound care daily with either Adaptic or Xeroform and leg elevation while in bed. Apparently patient is scheduled for a vascular procedure on both his limbs on august 31 by rachell. Hypertension His home medication metoprolol 50 mg continued here. However this changed to Toprol XL 50mg today as per cardiology. Also requested to start on LIpitor 20mg - will start after stabilization as allergy is one of the differential. Avoiding to start new medications before obtaining a diagnosis. CAD status post stents * Discontinued aspirin DVT prophylaxis * INR 3.51 CODE STATUS * DNR/DNI Complications: Developed acute renal failure, requiring dialysis for overload telemetry transfer in view of his potential to develop arrhythmias in the setting of hyperkalemia and preceeding CAD (s/p LA) Significant Procedures: Skin biopsy on 08/25/16 awaiting pathology results Pertinent Lab Results: Fibrinogen activity 417, July nutrition products greater than 10, d-dimer 1789 UAs hazy with trace ketones, white count 5-10, RBC 15-25, leukocyte esterase trace. Hepatitis panel is negative, HIV nonreactive, antinuclear antibody negative, MARTIN and complement levels are negative. acute renal failure today with Cr of 5.6 Assessment/Plan: as above. Among the few consults we place Nephrology - Dr. Smith (thinking of vasculitis - actively following) Rheumatology - - (thought it is allergic than a systemic based on ESR) - not actively following Cardiology - - consulted today - actively following Pulmonolgy - - actively following Hematology/oncology - - thought of systemic process - not actively following Wound consult - - actively following Attending MD Review Statement Documenting Attending: LUC BAKER,SHAAN
--- NOTE | 2016-08-29 14:10 | PN- Infect Dx ---
Subjective Subjective: He remains afebrile. He notes persistent cough, with intermittent hemoptysis. He has mild chest discomfort. He is voiding small amounts, with no evidence of urinary retention on bladder scanning. Objective Last 24 Hrs of Vital Signs/I&O Vital Signs Date Time Temp Pulse Resp B/P Pulse O2 O2 Flow FiO2 Ox Delivery Rate 08/29 1055 116/78 03/ 0845 97 Room Air Room Air / 0800 96 / 0712 98.2 105 20 116/78 97 Room Air / 0000 Room Air / 2221 97.6 107 20 122/80 95 Room Air / 2102 97 Room Air 03/ 1448 97.7 80 20 130/70 95 Intake & Output 08/29 1600 08/29 0800 / 0000 Intake Total 1080 1160 Output Total Balance 1080 1160 Intake, IV 600 800 Intake, Oral 480 360 Number 1 Bowel Movements Physical Exam Other Physical Findings: He appears more lethargic but in no acute distress Skin petechial rash improving Lungs are clear with audible wheezes Heart regular rhythm with no murmur Abdomen soft, nontender with positive bowel sounds Extremities right leg ecchymosis unchanged Results Last 24 Hours of Lab Results: Laboratory Tests 08/29 08/29 0730 0600 Chemistry Sodium (137 - 145 mmol/L) 130 L Potassium (3.5 - 5.1 mmol/L) 5.3 H Chloride (98 - 107 mmol/L) 99 Carbon Dioxide (22 - 30 mmol/L) 21 L Anion Gap (5 - 16) 11 BUN (9 - 20 mg/dL) 97 H Creatinine (0.7 - 1.2 mg/dL) 5.6 *H Estimated GFR (>60 ml/min) 10 L BUN/Creatinine Ratio (7 - 25 %) 17.3 Coagulation PT (9.4 - 12.5 SEC) 36.4 H INR (0.90 - 1.17) 3.51 H Hematology CBC w Diff NO MAN DIFF REQ WBC (4.8 - 10.8 /CUMM) 15.3 H RBC (4.70 - 6.10 /CUMM) 3.99 L Hgb (14.0 - 18.0 G/DL) 11.8 L Hct (42 - 52 %) 35.4 L MCV (80.0 - 94.0 FL) 88.8 MCH (27.0 - 31.0 PG) 29.6 RDW (11.5 - 14.5 %) 14.4 Plt Count (130 - 400 /CUMM) 159 MPV (7.4 - 10.4 FL) 8.4 Gran % (42.2 - 75.2 %) 81.9 H Lymphocytes % (20.5 - 51.1 %) 5.7 L Monocytes % (1.7 - 9.3 %) 12.4 H Eosinophils % (0 - 5 %) 0 Basophils % (0.0 - 2.0 %) 0 L Absolute Granulocytes (1.4 - 6.5 /CUMM) 12.6 H Absolute Lymphocytes (1.2 - 3.4 /CUMM) 0.9 L Absolute Monocytes (0.10 - 0.60 /CUMM) 1.9 H Absolute Eosinophils (0.0 - 0.7 /CUMM) 0 Absolute Basophils (0.0 - 0.2 /CUMM) 0 PUBS MCHC (33.0 - 37.0 G/DL) 33.4 Immunology Rheum Factor Semi-Quant (<12 IU/Ml) 13.9 H Miscellaneous Ref Lab Test Result Pending Ref Lab Test Result Pending 08/28 1430 Urines Urinalysis MANY H Urine Color (YEL,AMB,STR) AJIT Urine Clarity (CLEAR) CLDY H Urine pH (5.0 - 8.0) 6.0 Ur Specific [place] (1.001 - 1.035) 1.025 Urine Protein (NEG,<30 MG/DL) >=300 H Urine Ketones (NEG) NEG Urine Nitrite (NEG) NEG Urine Bilirubin (NEG) NEG Urine Urobilinogen (0.1 - 1.0 EU/dl) 0.2 Ur Leukocyte Esterase (NEG) TRACE H Ur Microscopic SEDIMENT EXAMINED Urine RBC (0 - 5 /HPF) >75 H Urine WBC (0 - 2 /HPF) 5-10 H Ur Epithelial Cells (NONE,FEW) RARE Urine Bacteria (NEG/NONE) RARE H Urine Hemoglobin (NEG) LARGE H Urine Glucose (N MG/DL) NEG Last 24 Hours of Hemal Results: Blood cultures August 26 negative Blood cultures August 28 negative Urine culture August 26 negative Sputum culture August 26 mixed juan Recent Imaging Studies: Chest x-ray August 28 cardiomegaly with small pleural effusions and right basilar atelectasis CT of the abdomen and pelvis August 28 small pleural effusions with bibasilar atelectasis; enlarged prostate Renal ultrasound August 28 no evidence of hydronephrosis Assessment/Plan Impression: Complex picture of a patient presenting with a petechial rash, which appears to be resolving, renal insufficiency with microscopic hematuria, suggestive of glomerulonephritis, now on empiric steroids per Renal. He remains afebrile off antibiotics but white blood cell count has increased, presumably secondary to his underlying disease, but with no evidence of infection and with recent cultures remaining negative. Suggestion: 1. Follow-up skin biopsy 2. Further evaluation and management of his renal failure per Renal 3. Continue to follow off antibiotics Will not follow actively at this time, but please call with any questions
[2016-08-29 16:42] VITALS: BP 122/80
--- NOTE | 2016-08-29 22:53 | NUR ---
DRESSING CHANGED TO RLE (DELGADILLO) AT 2230. 2 OPEN AREAS NOTED. XEROFORM, TELFA AND TEGADERM APPLIED AT THIS TIME.
[2016-08-29 23:00] VITALS: BP 148/90
[2016-08-30 07:47] VITALS: BP 160/90
[2016-08-30 08:13] LABS: ABSOLUTE BASOPHIL COUNT 0 /CUMM (0.0-0.2); ABSOLUTE EOSINOPHIL COUNT 0 /CUMM (0.0-0.7); ABSOLUTE GRANULOCYTE CT 10.3 /CUMM (1.4-6.5); ABSOLUTE LYMPH COUNT 0.7 /CUMM (1.2-3.4); ABSOLUTE MONOCYTE COUNT 0.3 /CUMM (0.10-0.60); BASOPHIL % 0.1 % (0.0-2.0); EOSINOPHIL % 0.1 % (0-5); HEMATOCRIT 36.1 % (42-52); MEAN CORPUSCULAR HGB 29.6 PG (27.0-31.0); MEAN CORPUSCULAR HGB CONC 33.5 G/DL (33.0-37.0); MEAN CORPUSCULAR VOLUME 88.4 FL (80.0-94.0); MEAN PLATELET VOLUME 8.4 FL (7.4-10.4); PLATELET COUNT 186 /CUMM (130-400); RBC DISTRIBUTION WIDTH 14.6 % (11.5-14.5); RED BLOOD CELL CT 4.08 /CUMM (4.70-6.10); WHITE BLOOD CELL COUNT 11.4 /CUMM (4.8-10.8)
[2016-08-30 09:22] LABS: GRANULOCYTE % 90.5 % (42.2-75.2)
--- NOTE | 2016-08-30 10:14 | PN- Pulmonary ---
Subjective HPI/Critical Care Issues: Patient started on pulse dose steroids. He has been sent to IR for tunneled catheter. Tentative plans are being made for a renal biopsy. The patient's respiratory status has been stable noting he remains on room air. Skin biopsy results not yet available. Objective Current Medications: Current Medications Sig/Dagoberto Start time Last Medication Dose Route Stop Time Status Admin Acetaminophen 650 MG .STK-MED ONE 08/29 1702 DC PO 08/29 1703 Acetaminophen 650 MG Q6P PRN 08/23 2345 AC 08/29 PO 1712 Albuterol Sulfate 3 ML BID 08/26 2200 AC 08/30 INH 0754 Atorvastatin Calcium 20 MG 1700 08/29 1700 CAN PO Benzonatate 100 MG .STK-MED ONE 08/29 1715 DC PO 08/29 1716 Benzonatate 100 MG TID PRN 08/25 1115 AC 08/30 PO 0236 Bisacodyl 5 MG DAILY 08/27 1358 AC 08/29 PO 1055 Cholecalciferol 1,000 IU DAILY 08/29 1046 AC 08/29 PO 1228 Folic Acid 1 MG DAILY 08/24 1000 AC 08/29 PO 1054 Guaifenesin 10 ML Q6P PRN 08/26 1530 AC 08/29 PO 1718 Lorazepam 0 Q1P PRN 08/24 2345 AC IV Methylprednisolone 1,000 MG 1430 08/29 1430 AC 08/29 Sodium Chloride 1,000 ML IV 08/31 1829 1459 Methylprednisolone 1,000 MG DAILY 08/29 1053 CAN Dextrose/Water 1,000 ML IV Methylprednisolone 1,000 MG EVERY 24 HRS 08/29 1045 DC IV 08/31 1001 Methylprednisolone 1,000 MG DAILY 08/29 1045 CAN Sodium Chloride 1,000 ML IV 08/31 1359 Metoprolol Succinate 50 MG DAILY 08/30 1000 AC PO Metoprolol Tartrate 50 MG DAILY 08/24 1000 DC 08/29 PO 1055 Multivitamins 1 TAB DAILY 08/24 1000 AC 08/29 PO 1054 Omeprazole 40 MG DAILY AC 08/29 1045 AC 08/29 PO 1226 Patient Medication 1 ED .STK-MED ONE 08/29 1413 DC Teaching ED 08/29 1414 Phenol 2 SPRAY Q2P PRN 08/30 0900 AC 08/30 EXT 0931 Phytonadione 5 MG ONCE ONE 08/29 1100 DC 08/29 PO 08/29 1101 1424 Phytonadione 5 MG DAILY 08/29 1000 AC 08/29 PO 1226 Polyethylene Glycol 17 GM DAILY 08/27 1358 AC 08/28 PO 1038 Prednisone 60 MG DAILY 09/01 1000 AC PO Sodium Polystyrene 120 ML ONCE ONE 08/30 0830 DC 08/30 Sulfonate PO 08/30 0831 0931 Thiamine HCl 100 MG DAILY 08/24 1000 AC 08/29 PO 1055 Vital Signs & I&O Last 24 Hrs of Vitals and I&O: Vital Signs Date Time Temp Pulse Resp B/P Pulse O2 O2 Flow FiO2 Ox Delivery Rate 08/30 0757 98 Nasal 2.0L Cannula 08/30 0747 98.6 95 20 160/90 97 Room Air 08/30 0258 Room Air 08/30 0000 94 Room Air 08/29 2300 97.3 92 20 148/90 96 Room Air 08/29 1845 96 Room Air 08/29 1642 98.0 105 20 122/80 93 Room Air 08/29 1600 Room Air 08/29 1055 116/78 Intake & Output 08/30 1600 08/30 0800 08/30 0000 Intake Total 1600 Output Total 2 Balance 1598 Intake, IV 1000 Intake, Oral 600 Number 1 Bowel Movements Output, Other 2 Physical Exam General Appearance: well developed/nourished, alert, awake Head: atraumatic, normal appearance Neck: normal inspection, supple Respiratory: normal breath sounds, no respiratory distress, lungs clear Cardiovascular: regular rate/rhythm (S1 and S2 heard) Gastrointestinal: normal bowel sounds, soft, non-tender Extremities: right lower extremity ecchymosis with a dressing in place Skin: diffuse petechial rash over the lower extremities (improved), anterior abdomen, and forearms, improving Results Last 24 Hrs of Lab Results: Laboratory Tests 08/30/16 06: Anion Gap 14, Estimated GFR 8 L, BUN/Creatinine Ratio 17.5 08/30/16 06: Prot Electrophoresis Pending, Total Protein (PEP) Pending, Albumin % (PEP) Pending, [id number] Pending, Fwjlb-1-Zvvzyotgn Pending, Epci-4-Mezfodfo Pending, Ciqh-5-Irrupmil Pending, Gamma Globulins Pending, Abnorm Protein Band 1 Pending, Abnorm Protein Band 2 Pending, Abnorm Protein Band 3 Pending, PT 23.0 H, INR 2.21 H, CBC w Diff NO MAN DIFF REQ, RBC 4.08 L, MCV 88.4, MCH 29.6, RDW 14.6 H, MPV 8.4, Gran % 90.5 H, Lymphocytes % 6.5 L, Monocytes % 2.8, Eosinophils % 0.1, Basophils % 0.1, Absolute Granulocytes 10.3 H, Absolute Lymphocytes 0.7 L, Absolute Monocytes 0.3, Absolute Eosinophils 0, Absolute Basophils 0, PUBS MCHC 33.5 Impression/Plan Impression/Plan Impression/Plan: 1. Hemoptysis - improved, no evidence of pulmonary hemorrhage less progressive anemia. No role for bronchoscopy at present. 2. Minimal nonspecific ground glass opacities, atelectasis. No evidence of ILD. 3. Nonspecific lung nodules which will need ongoing follow up in 3-6 months. 4. Very small bilateral effusions, not enough to tap. 5. Extensive petechial rash - improving. Skin biopsy results are pending. 6. 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 Patient is being prepared for dialysis. 7. Hyponatremia - stable. 8. Hyperkalemia in the setting of acute renal failure. Recommendations: * Please check a follow-up chest x-ray today. * Continue to monitor for hemoptysis. * Follow-up sputum culture results and cytology. * Follow-up skin biopsy results. * Continue multivitamin, thiamine and folate. * TRC for nebulizer treatments as needed. * Management of worsening renal failure as per nephrology - plan is for tunneled catheter, dialysis and kidney biopsy. * Continue all supportive care.
--- NOTE | 2016-08-30 12:05 | PN- Cardiology ---
Subjective Subjective: Patient is lethargic after his Raul cath. He complains of shortness of breath but denies chest pain. He denies history of CVA. Review of Systems: Eyes no blurred or double vision Ears no deafness or ringing Nose and throat no recurrent sinusitis Lungs per history of present illness Heart per history of present illness Abdomen no nausea vomiting Musculoskeletal occasional muscle and joint pains Psych no anxiety or depression Neuro without recurrent headache or seizures Endocrine no heat or cold intolerance Objective Vital Signs and I&Os Vital Signs Date Time Temp Pulse Resp B/P Pulse O2 O2 Flow FiO2 Ox Delivery Rate 08/30 0757 98 Nasal 2.0L Cannula 08/30 0747 98.6 95 20 160/90 97 Room Air 08/30 0258 Room Air 08/30 0000 94 Room Air 08/29 2300 97.3 92 20 148/90 96 Room Air 08/29 1845 96 Room Air 08/29 1642 98.0 105 20 122/80 93 Room Air 08/29 1600 Room Air Intake & Output 08/30 1600 08/30 0800 08/30 0000 08/29 1600 08/29 0800 08/29 0000 Intake Total 1600 1080 1160 Output Total 2 Balance 1598 1080 1160 Intake, IV 1000 600 800 Intake, Oral 600 480 360 Number 1 1 Bowel Movements Output, Other 2 Physical Exam: Patient is a well-developed well-nourished male appearing in no acute distress HEENT is unremarkable Neck is supple there is no JVD Lungs Rales bilaterally Heart IRregular rhythm S1 and S2 are normal no murmurs gallops or rubs Abdomen bowel sounds positive Extremities trace edema with chronic venous stasis changes Skin petechial rash Current Medications: Current Medications Sig/Dagoberto Start time Last Medication Dose Route Stop Time Status Admin Acetaminophen 650 MG .STK-MED ONE 08/29 1702 DC PO 08/29 1703 Acetaminophen 650 MG Q6P PRN 08/23 2345 AC 08/29 PO 1712 Albuterol Sulfate 3 ML BID 08/26 2200 AC 08/30 INH 0754 Atorvastatin Calcium 20 MG 1700 08/29 1700 CAN PO Benzonatate 100 MG .STK-MED ONE 08/29 1715 DC PO 08/29 1716 Benzonatate 100 MG TID PRN 08/25 1115 AC 08/30 PO 0236 Bisacodyl 5 MG DAILY 08/27 1358 AC 03/06 PO 1055 Cholecalciferol 1,000 IU DAILY 08/29 1046 AC 08/29 PO 1228 Fentanyl Citrate 0 .STK-MED ONE 08/30 1035 DC .ROUTE Folic Acid 1 MG DAILY 08/24 1000 AC 08/29 PO 1054 Guaifenesin 10 ML Q6P PRN 08/26 1530 AC 08/29 PO 1718 Heparin Sodium 0 .STK-MED ONE 08/30 1020 DC (Porcine) IV Lidocaine 0 .STK-MED ONE 08/30 1019 DC .ROUTE Lidocaine/Epinephrine 0 .STK-MED ONE 08/30 1019 DC .ROUTE Lorazepam 0 Q1P PRN 08/24 2345 AC IV Methylprednisolone 1,000 MG 1430 08/29 1430 AC 08/29 Sodium Chloride 1,000 ML IV 08/31 1829 1459 Methylprednisolone 1,000 MG DAILY 08/29 1045 CAN Sodium Chloride 1,000 ML IV 08/31 1359 Metoprolol Succinate 50 MG DAILY 08/30 1000 AC PO Metoprolol Tartrate 50 MG DAILY 08/24 1000 DC 08/29 PO 1055 Midazolam HCl 0 .STK-MED ONE 08/30 1035 DC .ROUTE Multivitamins 1 TAB DAILY 08/24 1000 AC 08/29 PO 1054 Omeprazole 40 MG DAILY AC 08/29 1045 AC 08/29 PO 1226 Patient Medication 1 ED .STK-MED ONE 08/29 1413 DC Teaching ED 08/29 1414 Phenol 2 SPRAY Q2P PRN 08/30 0900 AC 08/30 EXT 0931 Phytonadione 5 MG ONCE ONE 08/30 1145 CAN PO 08/30 1146 Phytonadione 5 MG DAILY 08/29 1000 DC 08/29 PO 1226 Polyethylene Glycol 17 GM DAILY 08/27 1358 AC 08/28 PO 1038 Prednisone 60 MG DAILY 09/01 1000 AC PO Sodium Polystyrene 120 ML ONCE ONE 08/30 0830 DC 08/30 Sulfonate PO 08/30 0831 0931 Thiamine HCl 100 MG DAILY 08/24 1000 AC 08/29 PO 1055 Results Last 48 Hrs of Labs/Mics: Laboratory Tests 08/30/16 06: Anion Gap 14, Estimated GFR 8 L, BUN/Creatinine Ratio 17.5 08/30/16 0612: Prot Electrophoresis Pending, Total Protein (PEP) Pending, Albumin % (PEP) Pending, Hegqr-[id number] Pending, Czjzc-0-Dwvknupdn Pending, Euxt-0-Ihuhkyxu Pending, Ywow-1-Elfkzwjt Pending, Gamma Globulins Pending, Abnorm Protein Band 1 Pending, Abnorm Protein Band 2 Pending, Abnorm Protein Band 3 Pending, PT 23.0 H, INR 2.21 H, CBC w Diff NO MAN DIFF REQ, RBC 4.08 L, MCV 88.4, MCH 29.6, RDW 14.6 H, MPV 8.4, Gran % 90.5 H, Lymphocytes % 6.5 L, Monocytes % 2.8, Eosinophils % 0.1, Basophils % 0.1, Absolute Granulocytes 10.3 H, Absolute Lymphocytes 0.7 L, Absolute Monocytes 0.3, Absolute Eosinophils 0, Absolute Basophils 0, PUBS MCHC 33.5 08/29/16 0730: Anion Gap 11, Estimated GFR 10 L, BUN/Creatinine Ratio 17.3, PT 36.4 H, INR 3.51 H, CBC w Diff NO MAN DIFF REQ, RBC 3.99 L, MCV 88.8, MCH 29.6, RDW 14.4, MPV 8.4, Gran % 81.9 H, Lymphocytes % 5.7 L, Monocytes % 12.4 H, Eosinophils % 0, Basophils % 0 L, Absolute Granulocytes 12.6 H, Absolute Lymphocytes 0.9 L, Absolute Monocytes 1.9 H, Absolute Eosinophils 0, Absolute Basophils 0, PUBS MCHC 33.4, Rheum Factor Semi-Quant 13.9 H 08/29/16 0600: Ref Lab Test Result Pending, Ref Lab Test Result Pending 08/28/16 1430: Urinalysis MANY H, Urine Color AJIT, Urine Clarity CLDY H, Urine pH 6.0, Ur Specific [place] 1.025, Urine Protein >=300 H, Urine Ketones NEG, Urine Nitrite NEG, Urine Bilirubin NEG, Urine Urobilinogen 0.2, Ur Leukocyte Esterase TRACE H , Ur Microscopic SEDIMENT EXAMINED, Urine RBC >75 H, Urine WBC 5-10 H, Ur Epithelial Cells RARE, Urine Bacteria RARE H, Urine Hemoglobin LARGE H, Urine Glucose NEG Telemetry personally reviewed atrial fibrillation Assessment/Plan Assessment/Plan 1. Progressive renal failure with hyperkalemia with suspicion for glomerulonephritis 2. Persistent atrial fibrillation on anticoagulation with Coumadin on hold 3. History of coronary artery disease/prior myocardial infarction with mild to moderate left ventricular dysfunction by previous noninvasive imaging 4. Hyponatremia 5. Small bilateral pleural effusions 6. Chronic left bundle branch block 7. Hx HTN 8. Venous insufficiency Recommendations 1. Agree with vitamin K to further correct INR pending renal biopsy 2. Discuss with Dr. Morejon will not start heparin since there is no history of CVA while being off anticoagulation. His aspirin will be held pending renal biopsy and resumed as soon as possible given his history of coronary artery disease 3. For hemodialysis today 4. Echocardiogram is pending Continue telemetry? Yes
--- NOTE | 2016-08-30 13:00 | PN- Housestaff ---
GILBERT BERNSTEIN 08/30/16 1259: Subjective Follow-up For: Rash Acute renal failure Hyperkalemia Atrial fibrillation Tele-Events Since Last Visit: Yanet golden, heart rate 90s to 100 no overnight events Subjective: Seen and examined patient. States that he has been having sore throat because he keeps coughing up mucus which is blood-tinged all night. Feels that his throat is slightly constricted. Also reported weakness. Denies fever, chest pain, palpitations, abdominal pain. States that his rash seems to be improving from admission. Review of Systems Constitutional: Reports: weakness. Denies: chills, diaphoresis, fever, malaise, unexplained weight loss. Cardiovascular: Denies: chest pain, edema, orthopena, palpitations, peripheral edema, syncope. Respiratory: Reports: wheezing. Denies: cough, hemoptysis, orthopnea, short of breath, sputum production, stridor. Objective Last 24 Hrs of Vital Signs/I&O Vital Signs Date Time Temp Pulse Resp B/P Pulse O2 O2 Flow FiO2 Ox Delivery Rate 08/30 0757 98 Nasal 2.0L Cannula 08/30 0747 98.6 95 20 160/90 97 Room Air 08/30 0258 Room Air / 0000 94 Room Air 08/29 2300 97.3 92 20 148/90 96 Room Air 08/29 1845 96 Room Air 08/29 1642 98.0 105 20 122/80 93 Room Air / 1600 Room Air Intake & Output 08/30 1600 08/30 0800 08/30 0000 Intake Total 1600 Output Total 2 Balance 1598 Intake, IV 1000 Intake, Oral 600 Number 1 Bowel Movements Output, Other 2 Physical Exam General Appearance: Alert, Oriented X3, Cooperative, Mild Distress Skin: petechial rash seen bilateral legs upper thigh,upper trunks HEENT: petechial rash seen in oropharyngeal mucosa Cardiovascular: Normal S1, Normal S2, irregularly irregular Lungs: bilateral wheezing heard in all areas Abdomen: Soft, No Tenderness Extremities: venous stasis changes Current Medications: Current Medications Sig/Dagoberto Start time Last Medication Dose Route Stop Time Status Admin Acetaminophen 650 MG .STK-MED ONE 08/29 1702 DC PO 08/29 1703 Acetaminophen 650 MG Q6P PRN 08/23 2345 AC 08/29 PO 1712 Albuterol Sulfate 3 ML BID 08/26 2200 AC 08/30 INH 0754 Benzonatate 100 MG .STK-MED ONE 08/29 1715 DC PO 08/29 1716 Benzonatate 100 MG TID PRN 08/25 1115 AC 08/30 PO 0236 Bisacodyl 5 MG DAILY 08/27 1358 AC 08/29 PO 1055 Cholecalciferol 1,000 IU DAILY 08/29 1046 AC 08/29 PO 1228 Fentanyl Citrate 0 .STK-MED ONE 08/30 1035 DC .ROUTE Folic Acid 1 MG DAILY 08/24 1000 AC 08/29 PO 1054 Guaifenesin 10 ML Q6P PRN 08/26 1530 AC 08/30 PO 1309 Heparin Sodium 0 .STK-MED ONE 08/30 1020 DC (Porcine) IV Lidocaine 0 .STK-MED ONE 08/30 1019 DC .ROUTE Lidocaine/Epinephrine 0 .STK-MED ONE 08/30 1019 DC .ROUTE Lorazepam 0 Q1P PRN 08/24 2345 AC IV Methylprednisolone 1,000 MG 1430 08/29 1430 AC 08/29 Sodium Chloride 1,000 ML IV 08/31 1829 1459 Metoprolol Succinate 50 MG DAILY 08/30 1000 AC PO Midazolam HCl 0 .STK-MED ONE 08/30 1035 DC .ROUTE Multivitamins 1 TAB DAILY 08/24 1000 AC 08/29 PO 1054 Omeprazole 40 MG DAILY AC 08/29 1045 AC 08/29 PO 1226 Patient Medication 1 ED .STK-MED ONE 08/30 1403 DC Teaching ED 08/30 1404 Phenol 2 SPRAY Q2P PRN 08/30 0900 AC 08/30 EXT 0931 Phytonadione 10 MG DAILY 08/30 1230 AC 08/30 PO 1252 Phytonadione 5 MG ONCE ONE 08/30 1145 CAN PO 08/30 1146 Phytonadione 5 MG DAILY 08/29 1000 DC 08/29 PO 1226 Polyethylene Glycol 17 GM DAILY 08/27 1358 AC 08/28 PO 1038 Prednisone 60 MG DAILY 09/01 1000 AC PO Sodium Polystyrene 120 ML ONCE ONE 08/30 0830 DC 08/30 Sulfonate PO 08/30 0831 0931 Thiamine HCl 100 MG DAILY 08/24 1000 AC 08/29 PO 1055 Last 24 Hrs of Lab/Hemal Results Last 24 Hrs of Labs/Mics: Laboratory Tests 08/30/16 0612: Anion Gap 14, Estimated GFR 8 L, BUN/Creatinine Ratio 17.5 08/30/16 0612: Prot Electrophoresis Pending, Total Protein (PEP) Pending, Albumin % (PEP) Pending, Ihvdt-2-Qmfuajwro Pending, Sxbzs-8-Jgkmgmpxr Pending, Erxj-8-Iqwkxjkf Pending, Qxra-5-Izexevva Pending, Gamma Globulins Pending, Abnorm Protein Band 1 Pending, Abnorm Protein Band 2 Pending, Abnorm Protein Band 3 Pending, PT 23.0 H, INR 2.21 H, CBC w Diff NO MAN DIFF REQ, RBC 4.08 L, MCV 88.4, MCH 29.6, RDW 14.6 H, MPV 8.4, Gran % 90.5 H, Lymphocytes % 6.5 L, Monocytes % 2.8, Eosinophils % 0.1, Basophils % 0.1, Absolute Granulocytes 10.3 H, Absolute Lymphocytes 0.7 L, Absolute Monocytes 0.3, Absolute Eosinophils 0, Absolute Basophils 0, PUBS MCHC 33.5 Assessment/Plan Assessment: 71-year-old gentleman with past medical history significant for atrial fibrillation on Coumadin, hypertension, CAD status post stents, recently admitted 3 weeks ago after significant bleeding from varicose vein requiring 2 units transfusion with current admission for worsening lower right leg pain and acute development of diffusely spreading petechial rash. Admitted to the general medicine floor with the following investigation done: Fibrinogen activity 417, Fibrinogen products greater than 10, d-dimer 1789 UAs hazy with trace ketones, white count 5-10, RBC 15-25, leukocyte esterase trace. Hepatitis panel negative, HIV nonreactive, antinuclear antibody negative, MARTIN and complement levels are normal, ESR was 36, C-reactive protein 5.9. Venous Doppler negative for any deep vein thrombosis X-ray negative for involvement of bone. Was transferred to the telemetry floor on 08/29/16 as his Coumadin and aspirin was going to be held in anticipation of renal biopsy and to monitor for any arrhythmias. Overnight patient had no events on the ripening room hand. Plan Purpuric/petechial rash with dark urine and hemoptysis * Per patient rash seems to be improving, but he continues to have hemoptysis * Pulm on board will obtain repeat chest x-ray * primary differential: drug-induced VS small vessel vasculitis * skin punch biopsy results pending. * acute renal failure with hyperkalemia * Increased Potassium levels 6.4, was given 120 mL of Kayexalate * Raul cath Placement today after which he will undergo dialysis * worsening renal function with Cr of 7.1 * renal biopsy possibly on , nephrology on board appreciate recommendations Right lower extremity ulcer Wound on board. Atrial fibrillation * Coumadin and aspirin discontinued secondary to hemoptysis as well as in anticipation of renal biopsy possibly on * Cardiology on board, further recommendations will hold off anticoagulation till 3 days after renal biopsy is done. * Will resume his aspirin as soon as possible after his renal biopsy Hypertension * continue Toprol XL 50mg, advised statin - was not started by previous team as they wanted to minimize introducing new drugs prior to r/o drug induced cause CAD status post stents * Off aspirin DVT prophylaxis * CODE STATUS * DNR/DNI Problem List: 1. Atrial fibrillation 2. Acute kidney injury 3. Petechial rash Pain Ratin Pain Location: na Pain Goal: Pain 4 or less Pain Plan: current regimen Tomorrow's Labs & Rationales: cbc, bep, mag, inr Consulting Request: Consulting Specialty: Hematology/Oncology MANOLO AMES MD 08/30/16 1338: Attending MD Review Statement Attending Statement Attending MD Statement: examined this patient, discuss w/resident/PA/HEADING MATCHER AND ASSEMBLER, agreed w/resident/PA/HEADING MATCHER AND ASSEMBLER, reviewed EMR data (avail), discussed with nursing, discussed with case mgmt, reviewed images Attending Assessment/Plan: His is very complex 71-year-old male with a past medical history of A. fib on Coumadin prior to admission, coronary artery disease who has been here since . 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 Today the active issue is severe hyperkalemia and acutely worsening renal function requiring emergent dialysis. His INR was reversed with oral vitamin K and he got FFP today while getting his tunneled catheter placed and he had his first dialysis today. The plan is a renal biopsy likely on to evaluate the cause of all of the symptomatology. The SPEP, free light chains, cryoglobulins are all pending while the ANCA and MARTIN is negative and the hepatitis panel is negative. The results of the skin biopsy are also pending at this point. Appreciate cardiology input and we will not start IV heparin but follow the INR closely with the plan tentatively for a renal biopsy on and the aspirin to be started as soon as possible for underlying CAD. hemoptysis. Today the active issue is severe hyperkalemia and acutely worsening renal function requiring emergent dialysis. His INR was reversed with oral vitamin K and he got FFP today while getting his tunneled catheter placed and he had his first dialysis today. The plan is a renal biopsy likely on to evaluate the cause of all of the symptomatology. The SPEP, free light chains, cryoglobulins are all pending while the ANCA and MARTIN is negative and the hepatitis panel is negative. The results of the skin biopsy are also pending at this point. Appreciate cardiology input and we will not start IV heparin but follow the INR closely with the plan tentatively for a renal biopsy on and the aspirin to be started as soon as possible for underlying CAD.
--- NOTE | 2016-08-30 15:41 | ULTRASOUND REPORT ---
PROCEDURE: ULTRASOUND AND FLUOROSCOPICALLY GUIDED RIGHT INTERNAL JUGULAR VEIN TUNNELED PERMACATHETER PLACEMENT Interventional radiologist: Patel Plata M.D. CLINICAL HISTORY: 71-year-old male with renal failure. Tunneled hemodialysis catheter requested. COMPARISON: Chest CT 08/25/2016 SEDATION: Intravenous conscious sedation was performed with full clinical nurse monitoring. An independent third-green party monitor nurse was utilized for full clinical nurse monitoring. The total sedation time was 20 minutes. A total of 1 mg of Versed and 50 mcg of fentanyl was utilized. FLUOROSCOPIC TIME: 1.8 minutes TECHNIQUE: Informed consent was obtained from the patient prior to the procedure. During this process, the procedure and potential alternatives were explained along with the intended outcome and benefits. The risks of the procedure, including the possibility of an unsuccessful procedure, as well as the risk of not doing the procedure were discussed. The patient was given the opportunity to ask questions regarding the procedure and appeared competent to make medical decisions. A signed consent form which documents this discussion was placed in the medical record. A timeout procedure was performed. Following informed consent the patient was placed supine on the fluoroscopic table. The right neck and chest were prepped and draped in usual sterile fashion. Using ultrasound guidance the right internal jugular vein was localized. Ultrasound was utilized to assess the vascular structures for access. A standard puncture into the right internal jugular vein was performed with a Micro-Stick system. Measurements were taken and the wire advanced down the IVC to confirm venous placement. 1% lidocaine with epinephrine was placed along the anterior chest wall tunneling site. A linear incision was made. The 23 cm tip to cuff tunneled hemodialysis catheter was tunneled in the subcutaneous tissues, exiting at the venotomy site. Serial dilatation was performed over the 0.035 inches wire. A peel-away sheath was placed over the wire and the catheter advanced down the peel-away sheath. The peel-away sheath was removed. Fluoroscopic imaging confirmed location of the catheter tip within the right atrium. Dermabond was utilized to close the venotomy site. Silk suture was utilized for catheter securement. The catheter was flushed with heparin for dwell. The patient tolerated the procedure well. The patient was transferred to the recovery room in good condition. ULTRASOUND-GUIDED VASCULAR ACCESS: Ultrasound was used to identify the right internal jugular vein. The right internal jugular vein was confirmed to be patent. Real time imaging confirmed needle access into the right internal jugular vein. An image was saved for permanent recording in PACS. IMPRESSION: Successful placement of 23 cm tip to cuff tunneled hemodialysis catheter using fluoroscopic and ultrasound guidance.
--- NOTE | 2016-08-30 15:57 | PN- Nephrology ---
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 He has been started on pulse steroids. He needs to have a biopsy as well when his INR comes down. His kidney function has worsened to the point that he was started on dialysis today. At this point in time with the serologic tests available and lack of pulmonary hemorrhage, there is no clear indication for plasmapheresis. Hyponatremia - Stable. Hyperkalemia - Stable Suggestion: -1000mg methylprednisolone daily x 3 days followed by 60mg PO prednisone daily -f/u cryoglobulin -Please make sure to send SPEP, [place] Lambda Free Light Chains, and anti-GBM Ab -Will plan for dialysis Monday and -Continue to hold aspirin -Please give 10mg PO Vit K daily to bring down INR -I touched base with IR - tentative plans for renal biopsy on pending INR - I placed the order -Management of pre-op heparin as per Cardiology - need to remain off of all anticoagulation and antiplatelets for at least 72 hours after biopsy Please call [phone] with ?'s Subjective Subjective: SCr continues to go up HAY cath placed this AM Pt seen and examined on dialysis Feels weak Objective Vital Signs and I&Os Vital Signs Date Time Temp Pulse Resp B/P Pulse O2 O2 Flow FiO2 Ox Delivery Rate 08/30 0757 98 Nasal 2.0L Cannula 08/30 0747 98.6 95 20 160/90 97 Room Air 08/30 0258 Room Air 08/30 0000 94 Room Air 08/29 2300 97.3 92 20 148/90 96 Room Air 08/29 1845 96 Room Air 08/29 1642 98.0 105 20 122/80 93 Room Air 08/29 1600 Room Air Intake & Output 08/30 1600 08/30 0400 / 1600 08/29 0400 08/28 1600 08/28 0400 Intake Total 1600 1080 1160 2130 1500 Output Total 2 600 Balance 1598 1080 1160 1530 1500 Intake, IV 1000 355 198 8143 800 Intake, Oral 600 480 360 530 700 Number 1 1 0 Bowel Movements Output, Other 2 Output, Urine 600 Physical Exam: Gen - OK appearing HEENT - supple CV - RRR Chest - clear Abd - soft, nontender to palpation Lower ext - RLE enlarged Skin - innumerrable nonblanching petechial lesions on legs - nontender but palpable, RLE fully purple/red in color Neuro - AOX3 Current Medications: Current Medications Sig/Dagoberto Start time Last Medication Dose Route Stop Time Status Admin Acetaminophen 650 MG .STK-MED ONE 08/29 1702 DC PO 08/29 1703 Acetaminophen 650 MG Q6P PRN 08/23 2345 AC 08/29 PO 1712 Albuterol Sulfate 3 ML BID 08/26 2200 AC 08/30 INH 0754 Benzonatate 100 MG .STK-MED ONE 08/29 1715 DC PO 08/29 1716 Benzonatate 100 MG TID PRN 08/25 1115 AC 08/30 PO 0236 Bisacodyl 5 MG DAILY 08/27 1358 AC 08/29 PO 1055 Cholecalciferol 1,000 IU DAILY 08/29 1046 AC 08/29 PO 1228 Fentanyl Citrate 0 .STK-MED ONE 08/30 1035 DC .ROUTE Folic Acid 1 MG DAILY 08/24 1000 AC 08/29 PO 1054 Guaifenesin 10 ML Q6P PRN 08/26 1530 AC 08/30 PO 1309 Heparin Sodium 0 .STK-MED ONE 08/30 1020 DC (Porcine) IV Lidocaine 0 .STK-MED ONE 08/30 1019 DC .ROUTE Lidocaine/Epinephrine 0 .STK-MED ONE 08/30 1019 DC .ROUTE Lorazepam 0 Q1P PRN 08/24 2345 AC IV Methylprednisolone 1,000 MG 1430 08/29 1430 AC 08/29 Sodium Chloride 1,000 ML IV 08/31 1829 1459 Metoprolol Succinate 50 MG DAILY 08/30 1000 AC PO Midazolam HCl 0 .STK-MED ONE 08/30 1035 DC .ROUTE Multivitamins 1 TAB DAILY 08/24 1000 AC 08/29 PO 1054 Omeprazole 40 MG DAILY AC 08/29 1045 AC 08/29 PO 1226 Patient Medication 1 ED .STK-MED ONE 08/30 1403 DC Teaching ED 08/30 1404 Phenol 2 SPRAY Q2P PRN 08/30 0900 AC 08/30 EXT 0931 Phytonadione 10 MG DAILY 08/30 1230 AC 08/30 PO 1252 Phytonadione 5 MG ONCE ONE 08/30 1145 CAN PO 08/30 1146 Phytonadione 5 MG DAILY 08/29 1000 DC 08/29 PO 1226 Polyethylene Glycol 17 GM DAILY 03/04 1358 AC 08/28 PO 1038 Prednisone 60 MG DAILY 09/01 1000 AC PO Sodium Polystyrene 120 ML ONCE ONE 08/30 829 DC 08/30 Sulfonate PO 08/30 830 0931 Thiamine HCl 100 MG DAILY 08/24 1000 AC 08/29 PO 1055 Results Pertinent Lab Results: Laboratory Tests 08/30 0612 Chemistry Sodium (137 - 145 mmol/L) 130 L Potassium (3.5 - 5.1 mmol/L) 6.4 *H Chloride (98 - 107 mmol/L) 99 Carbon Dioxide (22 - 30 mmol/L) 17 L Anion Gap (5 - 16) 14 BUN (9 - 20 mg/dL) 124 *H Creatinine (0.7 - 1.2 mg/dL) 7.1 *H Estimated GFR (>60 ml/min) 8 L BUN/Creatinine Ratio (7 - 25 %) 17.5 Prot Electrophoresis Pending Total Protein (PEP) Pending Albumin % (PEP) Pending Bbggm-5-Hqfvouhlv Pending Cvpms-5-Xtxgyiidy Pending Qdhd-5-Afpxueif Pending Nprm-8-Astcbnbs Pending Gamma Globulins Pending Abnorm Protein Band 1 Pending Abnorm Protein Band 2 Pending Abnorm Protein Band 3 Pending Coagulation PT (9.4 - 12.5 SEC) 23.0 H INR (0.90 - 1.17) 2.21 H Hematology CBC w Diff NO MAN DIFF REQ WBC (4.8 - 10.8 /CUMM) 11.4 H RBC (4.70 - 6.10 /CUMM) 4.08 L Hgb (14.0 - 18.0 G/DL) 12.1 L Hct (42 - 52 %) 36.1 L MCV (80.0 - 94.0 FL) 88.4 MCH (27.0 - 31.0 PG) 29.6 RDW (11.5 - 14.5 %) 14.6 H Plt Count (130 - 400 /CUMM) 186 MPV (7.4 - 10.4 FL) 8.4 Gran % (42.2 - 75.2 %) 90.5 H Lymphocytes % (20.5 - 51.1 %) 6.5 L Monocytes % (1.7 - 9.3 %) 2.8 Eosinophils % (0 - 5 %) 0.1 Basophils % (0.0 - 2.0 %) 0.1 Absolute Granulocytes (1.4 - 6.5 /CUMM) 10.3 H Absolute Lymphocytes (1.2 - 3.4 /CUMM) 0.7 L Absolute Monocytes (0.10 - 0.60 /CUMM) 0.3 Absolute Eosinophils (0.0 - 0.7 /CUMM) 0 Absolute Basophils (0.0 - 0.2 /CUMM) 0 PUBS MCHC (33.0 - 37.0 G/DL) 33.5 03/06 03/06 0730 0600 Chemistry Sodium (137 - 145 mmol/L) 130 L Potassium (3.5 - 5.1 mmol/L) 5.3 H Chloride (98 - 107 mmol/L) 99 Carbon Dioxide (22 - 30 mmol/L) 21 L Anion Gap (5 - 16) 11 BUN (9 - 20 mg/dL) 97 H Creatinine (0.7 - 1.2 mg/dL) 5.6 *H Estimated GFR (>60 ml/min) 10 L BUN/Creatinine Ratio (7 - 25 %) 17.3 Coagulation PT (9.4 - 12.5 SEC) 36.4 H INR (0.90 - 1.17) 3.51 H Hematology CBC w Diff NO MAN DIFF REQ WBC (4.8 - 10.8 /CUMM) 15.3 H RBC (4.70 - 6.10 /CUMM) 3.99 L Hgb (14.0 - 18.0 G/DL) 11.8 L Hct (42 - 52 %) 35.4 L MCV (80.0 - 94.0 FL) 88.8 MCH (27.0 - 31.0 PG) 29.6 RDW (11.5 - 14.5 %) 14.4 Plt Count (130 - 400 /CUMM) 159 MPV (7.4 - 10.4 FL) 8.4 Gran % (42.2 - 75.2 %) 81.9 H Lymphocytes % (20.5 - 51.1 %) 5.7 L Monocytes % (1.7 - 9.3 %) 12.4 H Eosinophils % (0 - 5 %) 0 Basophils % (0.0 - 2.0 %) 0 L Absolute Granulocytes (1.4 - 6.5 /CUMM) 12.6 H Absolute Lymphocytes (1.2 - 3.4 /CUMM) 0.9 L Absolute Monocytes (0.10 - 0.60 /CUMM) 1.9 H Absolute Eosinophils (0.0 - 0.7 /CUMM) 0 Absolute Basophils (0.0 - 0.2 /CUMM) 0 PUBS MCHC (33.0 - 37.0 G/DL) 33.4 Immunology Rheum Factor Semi-Quant (<12 IU/Ml) 13.9 H Miscellaneous Ref Lab Test Result Pending Ref Lab Test Result Pending 08/28 08/28 1430 0845 Chemistry Sodium (137 - 145 mmol/L) 128 L Potassium (3.5 - 5.1 mmol/L) 5.3 H Chloride (98 - 107 mmol/L) 100 Carbon Dioxide (22 - 30 mmol/L) 18 L Anion Gap (5 - 16) 10 BUN (9 - 20 mg/dL) 76 H Creatinine (0.7 - 1.2 mg/dL) 3.9 H Estimated GFR (>60 ml/min) 15 L BUN/Creatinine Ratio (7 - 25 %) 19.5 Urines Urinalysis MANY H Urine Color (YEL,AMB,STR) AJIT Urine Clarity (CLEAR) CLDY H Urine pH (5.0 - 8.0) 6.0 Ur Specific [place] (1.001 - 1.035) 1.025 Urine Protein (NEG,<30 MG/DL) >=300 H Urine Ketones (NEG) NEG Urine Nitrite (NEG) NEG Urine Bilirubin (NEG) NEG Urine Urobilinogen (0.1 - 1.0 EU/dl) 0.2 Ur Leukocyte Esterase (NEG) TRACE H Ur Microscopic SEDIMENT EXAMINED Urine RBC (0 - 5 /HPF) >75 H Urine WBC (0 - 2 /HPF) 5-10 H Ur Epithelial Cells (NONE,FEW) RARE Urine Bacteria (NEG/NONE) RARE H Urine Hemoglobin (NEG) LARGE H Urine Glucose (N MG/DL) NEG 08/28 0620 Coagulation PT (9.4 - 12.5 SEC) 46.3 *H INR (0.90 - 1.17) 4.48 *H Hematology CBC w Diff NO MAN DIFF REQ WBC (4.8 - 10.8 /CUMM) 22.3 H RBC (4.70 - 6.10 /CUMM) 4.09 L Hgb (14.0 - 18.0 G/DL) 12.2 L Hct (42 - 52 %) 36.9 L MCV (80.0 - 94.0 FL) 90.3 MCH (27.0 - 31.0 PG) 29.8 RDW (11.5 - 14.5 %) 14.2 Plt Count (130 - 400 /CUMM) 162 MPV (7.4 - 10.4 FL) 8.5 Gran % (42.2 - 75.2 %) 84.2 H Lymphocytes % (20.5 - 51.1 %) 3.6 L Monocytes % (1.7 - 9.3 %) 12.2 H Eosinophils % (0 - 5 %) 0 Basophils % (0.0 - 2.0 %) 0 L Absolute Granulocytes (1.4 - 6.5 /CUMM) 18.8 H Absolute Lymphocytes (1.2 - 3.4 /CUMM) 0.8 L Absolute Monocytes (0.10 - 0.60 /CUMM) 2.7 H Absolute Eosinophils (0.0 - 0.7 /CUMM) 0 Absolute Basophils (0.0 - 0.2 /CUMM) 0 PUBS MCHC (33.0 - 37.0 G/DL) 33.0 Imaging/Other Studies: EXAM TYPE: US - US-RENAL/KIDNEY EXAMINATION: US RETROPERITONEAL COMPLETE (RENAL) CLINICAL INFORMATION: Worsening renal function.. COMPARISON: CT of April 10, 2009 TECHNIQUE: Real-time imaging of the kidneys and bladder. FINDINGS: Limited due to large body habitus. RIGHT KIDNEY: 11.4 x 8.0 x 5.5 cm (SAG x AP x TRV). The kidney is normal in size, contour, and echogenicity. Renal cortical thickness is normal. No calculi or focal parenchymal lesions. No hydronephrosis. LEFT KIDNEY: 12.4 x 6.5 x 5.7 cm (SAG x AP x TRV). The kidney is normal in size, contour, and echogenicity. Renal cortical thickness is normal. No calculi or focal parenchymal lesions. No hydronephrosis. BLADDER: Empty and not evaluated. Ureteral jets were not identified during study without the bladder. Prostate gland measures approximately 4.3 x 4.3 x 4.8 cm in size. IMPRESSION: No definite evidence to suggest medical renal disease. No evidence of hydronephrosis.. EXAM TYPE: CAT - CT ABD & PELVIS W/O IV CONTRAS EXAMINATION: CT ABDOMEN AND PELVIS WITHOUT CONTRAST CLINICAL INFORMATION: Abdominal pain, leukocytosis and diarrhea. COMPARISON: CT of abdomen pelvis from 04/02/2009. CT of the chest from 08/25/2016. TECHNIQUE: Multidetector volumetric imaging was performed from the superior aspect of the liver through the pubic symphysis. Sagittal and coronal reformatted images were obtained on the technologist's workstation. DLP: 1209 mGy-cm FINDINGS: LUNG BASES: Cardiomegaly. Atherosclerotic disease of coronary arteries. Small pleural effusions, unchanged in size compared to 08/25/2016, and scattered areas of atelectasis within the visualized bases. The right diaphragm is elevated. LIVER, GALLBLADDER, AND BILIARY TREE: Liver has normal size and attenuation. No focal hepatic lesion or intrahepatic bile duct dilatation. Gallbladder is surgically absent. PANCREAS: No pancreatic ductal dilatation or peripancreatic edema. Within the pancreatic tail, there is a 1.5 x 1.9 cm rim-like calcification that probably outlines a pancreatic cyst (images 31-33, series 2), and a 1.4 x 1.6 cm rim-like calcification was seen in the same area on 04/02/2009. SPLEEN: Unremarkable. ADRENAL GLANDS: Unremarkable. KIDNEYS AND URETERS: Kidneys have normal size, cortical thickness and attenuation. No nephrolithiasis or hydroureteronephrosis. There is mild, symmetric perinephric edema. BLADDER: Urinary bladder is underdistended. No bladder calculi. GASTROINTESTINAL TRACT: The stomach is well distended with fluid. Small and large bowel loops are normal in caliber. Although there is diverticulosis of the sigmoid colon, there is no convincing diverticulitis. Mild edema is present within the mesentery, likely secondary to anasarca. A trace amount of free fluid is present within the pelvis. ABDOMINAL WALL: There is edema within subcutaneous tissues of the abdominal wall, flanks and back (anasarca). No focal fluid collection. LYMPH NODES: No pathologic sized lymph nodes within the abdomen or pelvis. VASCULAR: There is mild atherosclerotic calcification of the abdominal aorta and iliac arteries without aneurysm. PELVIC VISCERA: The enlarged prostate gland is 4.5 cm AP, 5.5 cm transverse. Trace free fluid is present in the pelvic cul-de-sac. OSSEOUS STRUCTURES: Multilevel degenerative arthropathy of the visualized thoracic and lumbar spine. No suspicious bone lesions. No paraspinal fluid collection. IMPRESSION: 1. Small pleural effusions and bibasilar atelectasis, unchanged compared to 08/25/2016. 2. Cardiomegaly and coronary artery atherosclerotic disease. 3. Anasarca. 4. Diverticulosis of sigmoid colon without overt diverticulitis. 5. The focal rim-like calcification in the pancreatic tail is similar in size compared to 04/02/2009; this calcification might outline an old pancreatic cyst. 6. Prostatomegaly.
[2016-08-30 16:40] VITALS: BP 144/90
[2016-08-30 22:37] VITALS: BP 138/80
--- NOTE | 2016-08-30 22:41 | RADIOLOGY REPORT ---
EXAMINATION: XR PORTABLE CHEST CLINICAL INFORMATION: Bilateral wheezing. Increased respiratory effort. COMPARISON: Chest x-ray 08/28/2016. TECHNIQUE: Portable AP view of the chest was obtained. FINDINGS: The visualized lungs appear mildly hypoinflated. There is persistent elevation of the right hemidiaphragm. There is minimal dependent bibasilar atelectasis. In comparison to the prior examination, there has been interval placement of a right jugular large bore central venous catheter which is visualized terminating within the right atrium. Cardiomediastinal blunting of the bilateral costophrenic angles, right greater than left, corresponds to previously identified small bilateral pleural effusions. Contours are stable. Soft tissues appear unremarkable. No acute osseous abnormality. IMPRESSION: Interval placement of a right jugular central venous catheter, which is visualized terminating within the right atrium. Otherwise, stable appearance of the chest. Stable bilateral pleural effusions, right greater than left. Stable prominence of the cardiac silhouette with mild central venous congestion. No overt pulmonary edema.
--- NOTE | 2016-08-31 07:58 | PN- Wound Care ---
Subjective Subjective: Patient feels poorly with significant weight gain Review of Systems: Patient feels poorly with significant weight gain and edema now undergoing dialysis Objective Vital Signs and I&Os Vital Signs Result Date Time Pulse Ox 95 08/30 2236 B/P 138/80 08/30 2236 O2 Delivery Room Air 08/30 2236 Temp 98.0 08/30 2236 Pulse 107 08/30 2236 Resp 24 08/30 2236 O2 Flow Rate 2.0L 08/30 756 Intake & Output 08/31 0000 08/30 1600 08/30 0800 Intake Total 1360 Output Total 1250 Balance 110 Intake, IV 1000 Intake, Oral 360 Number 2 Bowel Movements Output, 1000 Dialysate Output, Urine 250 Patient 239 lb Weight Right lower extremity ulcer is unchanged air is red fill and serous drainage Impression/Plan Impression/Plan Impression/Plan: 71-year-old gentleman with chronic venous insufficiency venous stasis ulcer admitted with acute kidney injury now undergoing dialysis. Recommend continued Xeroform daily leg elevation and can use Akbar wraps for edema reduction
[2016-08-31 08:01] LABS: ABSOLUTE BASOPHIL COUNT 0 /CUMM (0.0-0.2); ABSOLUTE EOSINOPHIL COUNT 0 /CUMM (0.0-0.7); ABSOLUTE LYMPH COUNT 0.6 /CUMM (1.2-3.4); ABSOLUTE MONOCYTE COUNT 0.6 /CUMM (0.10-0.60); BASOPHIL % 0.1 % (0.0-2.0); EOSINOPHIL % 0 % (0-5); HEMATOCRIT 35.9 % (42-52); MEAN CORPUSCULAR HGB 29.7 PG (27.0-31.0); MEAN CORPUSCULAR HGB CONC 33.7 G/DL (33.0-37.0); MEAN PLATELET VOLUME 7.9 FL (7.4-10.4); PLATELET COUNT 162 /CUMM (130-400); RBC DISTRIBUTION WIDTH 14.6 % (11.5-14.5); RED BLOOD CELL CT 4.08 /CUMM (4.70-6.10); WHITE BLOOD CELL COUNT 11.3 /CUMM (4.8-10.8)
[2016-08-31 08:08] VITALS: BP 176/98
[2016-08-31 08:53] LABS: PT 18.8 SEC (9.4-12.5)
--- NOTE | 2016-08-31 09:19 | PN- Housestaff ---
GILBERT BERNSTEIN 08/31/16 0912: Subjective Follow-up For: Rash Acute renal failure Hyperkalemia Atrial fibrillation Tele-Events Since Last Visit: Yanet golden, heart rate 78-91 no overnight events, Subjective: Seen and examined patient. States that he feels abdominal fullness. Had a small hard bowel movement yesterday. states that his breathing has remained the same. The rash on his lower extremities are starting to fade, continues to have non-blanchable non-palpable petechial lesions on back and hands. Denies fever, chills, shortness of breath states that the supplemental oxygen is not helpful. Review of Systems Constitutional: Denies: chills, diaphoresis, fever, malaise, weakness, unexplained weight loss. Cardiovascular: Denies: chest pain, edema, orthopena, palpitations, peripheral edema, syncope. Respiratory: Denies: cough, hemoptysis, orthopnea, short of breath, sputum production, stridor, wheezing. Objective Last 24 Hrs of Vital Signs/I&O Vital Signs Date Time Temp Pulse Resp B/P Pulse O2 O2 Flow FiO2 Ox Delivery Rate 08/31 0857 94 Room Air 08/31 0808 97.5 98 24 176/98 96 Room Air 08/30 2237 98.0 107 24 138/80 95 Room Air 08/30 1910 95 Room Air 08/30 1643 98 144/90 08/30 1640 98.0 98 28 144/90 94 Room Air 08/30 1600 94 Room Air Intake & Output 08/31 1600 08/31 0800 08/31 0000 Intake Total 1360 Output Total 1250 Balance 110 Intake, IV 1000 Intake, Oral 360 Number 2 Bowel Movements Output, 1000 Dialysate Output, Urine 250 Patient 245 lb 239 lb Weight Physical Exam General Appearance: Alert, Oriented X3, Cooperative, No Acute Distress Skin: mitzi-cath in place in right upper chest. No signs of infection noted Cardiovascular: Normal S1, Normal S2, irreg reg Lungs: b/l rhonchi Abdomen: distended Extremities: +2 pitting edema Current Medications: Current Medications Sig/Dagoberto Start time Last Medication Dose Route Stop Time Status Admin Acetaminophen 650 MG Q6P PRN 08/23 2345 AC 08/30 PO 2203 Albuterol Sulfate 3 ML Q4P PRN 08/30 1645 AC 03/08 INH 0855 Albuterol Sulfate 3 ML BID 08/26 2200 DC 08/30 INH 0754 Benzocaine/Menthol 1 SUKH Q4P PRN 08/31 1100 AC PO Benzonatate 100 MG .STK-MED ONE 08/30 1646 DC PO 08/30 1647 Benzonatate 100 MG TID PRN 08/25 1115 AC 08/30 PO 1652 Bisacodyl 5 MG DAILY 08/27 1358 AC 08/30 PO 1642 Cholecalciferol 1,000 IU DAILY 08/29 1046 AC 08/30 PO 1643 Folic Acid 1 MG DAILY 08/24 1000 AC 08/30 PO 1642 Guaifenesin 10 ML .STK-MED ONE 08/30 2155 DC PO 08/30 2156 Guaifenesin 10 ML .STK-MED ONE 08/30 1306 DC PO 08/30 1307 Guaifenesin 10 ML Q6P PRN 08/26 1530 AC 08/30 PO 2203 Lorazepam 0 Q1P PRN 08/24 2345 AC IV Methylprednisolone 1,000 MG 1430 08/29 1430 AC 08/30 Sodium Chloride 1,000 ML IV 08/31 1829 1714 Metoprolol Succinate 50 MG DAILY 08/30 1000 AC 08/30 PO 1643 Multivitamins 1 TAB DAILY 08/24 1000 AC 08/30 PO 1642 Omeprazole 40 MG DAILY AC 08/29 1045 AC 08/31 PO 0606 Patient Medication 1 ED .STK-MED ONE 08/30 1403 DC Teaching ED 08/30 1404 Phenol 2 SPRAY Q2P PRN 08/30 0900 AC 08/30 EXT 0931 Phytonadione 10 MG ONCE ONE 08/31 0930 DC PO 08/31 0931 Phytonadione 10 MG DAILY 08/30 1230 DC 08/30 PO 1252 Phytonadione 5 MG ONCE ONE 08/30 1145 CAN PO 08/30 1146 Phytonadione 5 MG DAILY 08/29 1000 DC 08/29 PO 1226 Polyethylene Glycol 17 GM DAILY 08/27 1358 AC 08/28 PO 1038 Prednisone 60 MG DAILY 09/01 1000 AC PO Thiamine HCl 100 MG DAILY 08/24 1000 AC 08/30 PO 1643 Last 24 Hrs of Lab/Hemal Results Last 24 Hrs of Labs/Mics: Laboratory Tests 08/31/16 0655: Anion Gap 17 H, Estimated GFR 7 L, BUN/Creatinine Ratio 15.8, Magnesium 2.9 H , PT 18.8 H, INR 1.80 H, CBC w Diff NO MAN DIFF REQ, RBC 4.08 L, MCV 88.0, MCH 29.7, RDW 14.6 H, MPV 7.9, Gran % 88.7 H, Lymphocytes % 5.7 L, Monocytes % 5.5, Eosinophils % 0, Basophils % 0.1, Absolute Granulocytes 10.0 H, Absolute Lymphocytes 0.6 L, Absolute Monocytes 0.6, Absolute Eosinophils 0, Absolute Basophils 0, PUBS MCHC 33.7 Assessment/Plan Assessment: 71-year-old gentleman with past medical history significant for atrial fibrillation on Coumadin, hypertension, CAD status post stents, recently admitted 3 weeks ago after significant bleeding from varicose vein requiring 2 units transfusion with current admission for worsening lower right leg pain and acute development of diffusely spreading petechial rash. Admitted to the general medicine floor with the following investigations were done: Fibrinogen activity 417, Fibrinogen products greater than 10, d-dimer 1789 Hepatitis panel negative, HIV nonreactive, antinuclear antibody negative, MARTIN and complement levels are normal, ESR was 36, c and p ANCA negative C-reactive protein 5.9. Venous Doppler negative for any deep vein thrombosis. Was transferred to the telemetry floor on 08/29/16 as his Coumadin and aspirin was going to be held in anticipation of renal biopsy and to monitor for any arrhythmias. 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 States today that his hemoptysis was not as frequent as yesterday. 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 * Normal kampa/ lambda light chain ratio, myeloperoxidase antibody negative * Pulm on board repeat chest x-ray survey showed stable bilateral pleural effusions no ovei * was given IV methylprednisolone for 3 days will be started on 60mg PO prednisone starting tomorrow. acute renal failure with hyperkalemia * Increased Potassium levels 5.5 today, will undergo dialysis today * Status post Raul cath Placement, site looks clean no signs of infection * worsening renal function with Cr of 7.4 * Given 10 mg of by mouth vitamin K to achieve an INR of less than 1.0 in anticipation of renal biopsy * renal biopsy possibly on monday, nephrology on board appreciate recommendations Right lower extremity ulcer Wound on board. Atrial fibrillation * Coumadin and aspirin discontinued secondary to hemoptysis as well as in anticipation of renal biopsy possibly on * Cardiology on board, they are in agreement of holding anticoagulation, further recommendations will hold off anticoagulation till 3 days after renal biopsy is done. * Will resume his aspirin as soon as possible after his renal biopsy Hypertension * continue Toprol XL 50mg, advised statin - was not started by previous team as they wanted to minimize introducing new drugs prior to r/o drug induced cause CAD status post stents * Off aspirin DVT prophylaxis * Patient is currently not on any DVT prophylaxis as he is off AC in anticipation renal biopsy, mechanical Alps is contraindicated as he has +2 bilateral pedal edema along with venous stasis ulcer. CODE STATUS * DNR/DNI Problem List: 1. Petechial rash 2. Acute kidney injury 3. Atrial fibrillation Pain Ratin Pain Location: na Pain Goal: Pain 4 or less Pain Plan: current regimen Tomorrow's Labs & Rationales: cbc/bep/inr/mg/phos Consulting Request: Consulting Specialty: Hematology/Oncology MANOLO AMES MD 08/31/16 1359: Attending MD Review Statement Attending Statement Attending MD Statement: examined this patient, discuss w/resident/PA/CHOCOLATE TEMPERER, agreed w/resident/PA/CHOCOLATE TEMPERER, reviewed EMR data (avail), discussed with nursing, discussed with case mgmt, reviewed images Attending Assessment/Plan: Patient feels very tired. Today was his second dialysis. He feels like his throat is killing him as well. Although there doesn't appear to be any pharyngeal erythema or edema. He is a 71-year-old with A. fib on Coumadin, known CAD who is here with acute onset of a petechial rash, CHARLES with severe renal failure and hyperkalemia, reticulonodular opacities on chest x-ray with mild hemoptysis. He is actively being treated with pulse dose steroids for a presumed vasculitis/glomerulonephritis. 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 As per renal and cardiology, he is getting another 10 mg of vitamin K by mouth today. We will check the INR tomorrow. With the tentative plan for a renal biopsy either tomorrow or Monday. At this point it should be noted that he is off all forms of DVT prophylaxis. He cannot get the Alps because of the rash and the wounds, he is not getting subcutaneous heparin or Lovenox in any shape or form because we are basically getting to the INR less than 1 for the renal biopsy.
[2016-08-31 09:28] LABS: GRANULOCYTE % 88.7 % (42.2-75.2)
--- NOTE | 2016-08-31 10:40 | PN- Pulmonary ---
Subjective HPI/Critical Care Issues: The patient is awake and alert. He continues to have some intermittent blood tinged sputum. He is now undergoing dialysis. He does not feel improved following treatment. Objective Current Medications: Current Medications Sig/Dagoberto Start time Last Medication Dose Route Stop Time Status Admin Acetaminophen 650 MG Q6P PRN 08/23 2345 AC 08/30 PO 2203 Albuterol Sulfate 3 ML Q4P PRN 08/30 1645 AC 08/31 INH 0855 Albuterol Sulfate 3 ML BID 08/26 2200 DC 08/30 INH 0754 Benzonatate 100 MG .STK-MED ONE 08/30 1646 DC PO 08/30 1647 Benzonatate 100 MG TID PRN 08/25 1115 AC 08/30 PO 1652 Bisacodyl 5 MG DAILY 08/27 1358 AC 08/30 PO 1642 Cholecalciferol 1,000 IU DAILY 08/29 1046 AC 08/30 PO 1643 Fentanyl Citrate 0 .STK-MED ONE 08/30 1035 DC .ROUTE Folic Acid 1 MG DAILY 08/24 1000 AC 08/30 PO 1642 Guaifenesin 10 ML .STK-MED ONE 08/30 2155 DC PO 08/30 2156 Guaifenesin 10 ML .STK-MED ONE 08/30 1306 DC PO 08/30 1307 Guaifenesin 10 ML Q6P PRN 08/26 1530 AC 08/30 PO 2203 Lorazepam 0 Q1P PRN 08/24 2345 AC IV Methylprednisolone 1,000 MG 1430 08/29 1430 AC 07 Sodium Chloride 1,000 ML IV 08/31 1829 1714 Metoprolol Succinate 50 MG DAILY 08/30 1000 AC 08/30 PO 1643 Midazolam HCl 0 .STK-MED ONE 08/30 1035 DC .ROUTE Multivitamins 1 TAB DAILY 08/24 1000 AC 08/30 PO 1642 Omeprazole 40 MG DAILY AC 08/29 1045 AC 08/31 PO 0606 Patient Medication 1 ED .STK-MED ONE 08/30 1403 DC Teaching ED 08/30 1404 Phenol 2 SPRAY Q2P PRN 08/30 0900 AC 08/30 EXT 0931 Phytonadione 10 MG ONCE ONE 08/31 0930 DC PO 08/31 0931 Phytonadione 10 MG DAILY 08/30 1230 DC 08/30 PO 1252 Phytonadione 5 MG ONCE ONE 08/30 1145 CAN PO 08/30 1146 Phytonadione 5 MG DAILY 08/29 1000 DC 08/29 PO 1226 Polyethylene Glycol 17 GM DAILY 08/27 1358 AC 08/28 PO 1038 Prednisone 60 MG DAILY 09/01 1000 AC PO Thiamine HCl 100 MG DAILY 08/24 1000 AC 08/30 PO 1643 Vital Signs & I&O Last 24 Hrs of Vitals and I&O: Vital Signs Date Time Temp Pulse Resp B/P Pulse O2 O2 Flow FiO2 Ox Delivery Rate 08/31 0857 94 Room Air 08/31 0808 97.5 98 24 176/98 96 Room Air 08/30 2237 98.0 107 24 138/80 95 Room Air 08/30 1910 95 Room Air 08/30 1643 98 144/90 08/30 1640 98.0 98 28 144/90 94 Room Air 08/30 1600 94 Room Air Intake & Output 08/31 1600 08/31 0800 08/31 0000 Intake Total 1360 Output Total 1250 Balance 110 Intake, IV 1000 Intake, Oral 360 Number 2 Bowel Movements Output, 1000 Dialysate Output, Urine 250 Patient 245 lb 239 lb Weight Physical Exam General Appearance: well developed/nourished, alert, awake Head: atraumatic, normal appearance Neck: normal inspection, supple Respiratory: normal breath sounds, no respiratory distress, lungs clear Cardiovascular: regular rate/rhythm (S1 and S2 heard) Gastrointestinal: normal bowel sounds, soft, non-tender Extremities: right lower extremity ecchymosis with a dressing in place Skin: diffuse petechial rash over the lower extremities (improved), anterior abdomen, and forearms, improving Results Last 24 Hrs of Lab Results: Laboratory Tests 08/31/16 0655: Anion Gap 17 H, Estimated GFR 7 L, BUN/Creatinine Ratio 15.8, Magnesium 2.9 H , PT 18.8 H, INR 1.80 H, CBC w Diff NO MAN DIFF REQ, RBC 4.08 L, MCV 88.0, MCH 29.7, RDW 14.6 H, MPV 7.9, Gran % 88.7 H, Lymphocytes % 5.7 L, Monocytes % 5.5, Eosinophils % 0, Basophils % 0.1, Absolute Granulocytes 10.0 H, Absolute Lymphocytes 0.6 L, Absolute Monocytes 0.6, Absolute Eosinophils 0, Absolute Basophils 0, PUBS MCHC 33.7 Diagnostic Data CXR Findings: Interval placement of a right jugular central venous catheter, which is visualized terminating within the right atrium. Otherwise, stable appearance of the chest. Stable bilateral pleural effusions, right greater than left. Stable prominence of the cardiac silhouette with mild central venous congestion. No overt pulmonary edema. Impression/Plan Impression/Plan Impression/Plan: 1. Hemoptysis - no evidence of pulmonary hemorrhage, no progressive anemia. No role for bronchoscopy at present. Sputum cytology is negative. 2. Minimal nonspecific ground glass opacities, atelectasis. No evidence of ILD. 3. Nonspecific lung nodules which will need ongoing follow up in 3-6 months. 4. Very small bilateral effusions, not enough to tap. 5. Extensive petechial rash - improving. Skin biopsy results are pending. 6. 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 Patient is being prepared for dialysis. 7. Hyponatremia - stable. 8. Hyperkalemia in the setting of acute renal failure. Recommendations: * Continue to monitor for gross hemoptysis. Call pulmonary if significant bleeding. * Follow-up skin biopsy results. * Continue multivitamin, thiamine and folate. * TRC for nebulizer treatments as needed. * Renal failure management/dialysis per nephrology. * Continue all supportive care.
--- NOTE | 2016-08-31 11:14 | PN- Nephrology ---
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 He was started on Monday on pulse dose steroids - today is day #3. He was started on dialysis yesterday. He needs to have a biopsy but given that the more emergent therapy has already been done, I would not want to have the biopsy is done until his INR is normal. Based on his serologic labs, there is no clear indication for pheresis at this time. Hyponatremia - Improved. Hyperkalemia - Stable Suggestion: -1000mg methylprednisolone daily x 3 days (today is day #3) followed by 60mg PO prednisone daily (starting tomorrow) -f/u cryoglobulin -Dialysis today and tomorrow - will take off 3L with dialysis today (will be doing 2.5hrs of dialysis and then 1hr of pure ultrafiltration to acheive this goal UF) -Continue to hold aspirin -Please cont to give 10mg PO Vit K daily to bring down INR -I touched base with IR - tentative plans for renal biopsy on pending INR - I placed the order - if his INR is not 1.1 or less, I would wait until Monday for the biopsy -Management of pre-op heparin as per Cardiology - need to remain off of all anticoagulation and antiplatelets for at least 72 hours after biopsy Please call [phone] with ?'s Subjective Subjective: Underwent first dialysis yesterday KLFLC ratio normal MPO and PR3 ANCA negative Anti-GBM negative Objective Vital Signs and I&Os Vital Signs Date Time Temp Pulse Resp B/P Pulse O2 O2 Flow FiO2 Ox Delivery Rate 08/31 0857 94 Room Air 08/31 0808 97.5 98 24 176/98 96 Room Air 08/30 2237 98.0 107 24 138/80 95 Room Air / 1910 95 Room Air / 1643 98 144/90 / 1640 98.0 98 28 144/90 94 Room Air 08/30 1600 94 Room Air Intake & Output 08/31 1600 / 0400 08/30 1600 08/30 0400 08/29 1600 / 0400 Intake Total 1360 1600 1080 1160 Output Total 1250 2 Balance 110 1598 1080 1160 Intake, IV 1000 1000 600 800 Intake, Oral 360 600 480 360 Number 2 1 1 Bowel Movements Output, 1000 Dialysate Output, Other 2 Output, Urine 250 Patient 245 lb 239 lb Weight Physical Exam: Gen - OK appearing HEENT - supple CV - RRR Chest - upper airway sounds Abd - soft, minimal tenderness Ext - 1-2+ edema Skin - palpable purpura more confluent Neuro - AOX3 Current Medications: Current Medications Sig/Dagoberto Start time Last Medication Dose Route Stop Time Status Admin Acetaminophen 650 MG Q6P PRN 08/23 2345 AC 08/30 PO 2203 Albuterol Sulfate 3 ML Q4P PRN 08/30 1645 AC 08/31 INH 0855 Albuterol Sulfate 3 ML BID 08/26 2200 DC 08/30 INH 0754 Benzocaine/Menthol 1 SUKH Q4P PRN 08/31 1100 AC PO Benzonatate 100 MG .STK-MED ONE 08/30 1646 DC PO 08/30 1647 Benzonatate 100 MG TID PRN 08/25 1115 AC 08/30 PO 1652 Bisacodyl 5 MG DAILY 08/27 1358 AC 08/30 PO 1642 Cholecalciferol 1,000 IU DAILY 08/29 1046 AC 08/30 PO 1643 Folic Acid 1 MG DAILY 08/24 1000 AC 08/30 PO 1642 Guaifenesin 10 ML .STK-MED ONE 08/30 2155 DC PO 08/30 2156 Guaifenesin 10 ML .STK-MED ONE 08/30 1306 DC PO 08/30 1307 Guaifenesin 10 ML Q6P PRN 08/26 1530 AC 08/30 PO 2203 Lorazepam 0 Q1P PRN 08/24 2345 AC IV Methylprednisolone 1,000 MG 1430 08/29 1430 AC 08/30 Sodium Chloride 1,000 ML IV 08/31 1829 1714 Metoprolol Succinate 50 MG DAILY 08/30 1000 AC 08/30 PO 1643 Multivitamins 1 TAB DAILY 08/24 1000 AC 08/30 PO 1642 Omeprazole 40 MG DAILY AC 08/29 1045 AC 08/31 PO 0606 Patient Medication 1 ED .STK-MED ONE 08/30 1403 DC Teaching ED 08/30 1404 Phenol 2 SPRAY Q2P PRN 08/30 0900 AC 08/30 EXT 0931 Phytonadione 10 MG ONCE ONE 08/31 0930 DC PO 08/31 0931 Phytonadione 10 MG DAILY 08/30 1230 DC 08/30 PO 1252 Phytonadione 5 MG ONCE ONE 08/30 1145 CAN PO 08/30 1146 Phytonadione 5 MG DAILY 08/29 1000 DC 08/29 PO 1226 Polyethylene Glycol 17 GM DAILY 08/27 1358 AC 08/28 PO 1038 Prednisone 60 MG DAILY 09/01 1000 AC PO Thiamine HCl 100 MG DAILY 08/24 1000 AC 08/30 PO 1643 Results Pertinent Lab Results: Laboratory Tests 08/31 08/30 0655 0612 Chemistry Sodium (137 - 145 mmol/L) 135 L 130 L Potassium (3.5 - 5.1 mmol/L) 5.5 H 6.4 *H Chloride (98 - 107 mmol/L) 101 99 Carbon Dioxide (22 - 30 mmol/L) 17 L 17 L Anion Gap (5 - 16) 17 H 14 BUN (9 - 20 mg/dL) 117 *H 124 *H Creatinine (0.7 - 1.2 mg/dL) 7.4 *H 7.1 *H Estimated GFR (>60 ml/min) 7 L 8 L BUN/Creatinine Ratio (7 - 25 %) 15.8 17.5 Magnesium (1.6 - 2.3 mg/dL) 2.9 H Coagulation PT (9.4 - 12.5 SEC) 18.8 H INR (0.90 - 1.17) 1.80 H Hematology CBC w Diff NO MAN DIFF REQ WBC (4.8 - 10.8 /CUMM) 11.3 H RBC (4.70 - 6.10 /CUMM) 4.08 L Hgb (14.0 - 18.0 G/DL) 12.1 L Hct (42 - 52 %) 35.9 L MCV (80.0 - 94.0 FL) 88.0 MCH (27.0 - 31.0 PG) 29.7 RDW (11.5 - 14.5 %) 14.6 H Plt Count (130 - 400 /CUMM) 162 MPV (7.4 - 10.4 FL) 7.9 Gran % (42.2 - 75.2 %) 88.7 H Lymphocytes % (20.5 - 51.1 %) 5.7 L Monocytes % (1.7 - 9.3 %) 5.5 Eosinophils % (0 - 5 %) 0 Basophils % (0.0 - 2.0 %) 0.1 Absolute Granulocytes (1.4 - 6.5 /CUMM) 10.0 H Absolute Lymphocytes (1.2 - 3.4 /CUMM) 0.6 L Absolute Monocytes (0.10 - 0.60 /CUMM) 0.6 Absolute Eosinophils (0.0 - 0.7 /CUMM) 0 Absolute Basophils (0.0 - 0.2 /CUMM) 0 PUBS MCHC (33.0 - 37.0 G/DL) 33.7 03/07 03/06 0612 0730 Chemistry Sodium (137 - 145 mmol/L) 130 L Potassium (3.5 - 5.1 mmol/L) 5.3 H Chloride (98 - 107 mmol/L) 99 Carbon Dioxide (22 - 30 mmol/L) 21 L Anion Gap (5 - 16) 11 BUN (9 - 20 mg/dL) 97 H Creatinine (0.7 - 1.2 mg/dL) 5.6 *H Estimated GFR (>60 ml/min) 10 L BUN/Creatinine Ratio (7 - 25 %) 17.3 Prot Electrophoresis Pending Total Protein (PEP) Pending Albumin % (PEP) Pending [id number] Pending Osffs-0-Ichfocwun Pending Kpfq-7-Txyuzlnt Pending Xtmo-[id number] Pending Gamma Globulins Pending Abnorm Protein Band 1 Pending Abnorm Protein Band 2 Pending Abnorm Protein Band 3 Pending Coagulation PT (9.4 - 12.5 SEC) 23.0 H 36.4 H INR (0.90 - 1.17) 2.21 H 3.51 H Hematology CBC w Diff NO MAN DIFF REQ NO MAN DIFF REQ WBC (4.8 - 10.8 /CUMM) 11.4 H 15.3 H RBC (4.70 - 6.10 /CUMM) 4.08 L 3.99 L Hgb (14.0 - 18.0 G/DL) 12.1 L 11.8 L Hct (42 - 52 %) 36.1 L 35.4 L MCV (80.0 - 94.0 FL) 88.4 88.8 MCH (27.0 - 31.0 PG) 29.6 29.6 RDW (11.5 - 14.5 %) 14.6 H 14.4 Plt Count (130 - 400 /CUMM) 186 159 MPV (7.4 - 10.4 FL) 8.4 8.4 Gran % (42.2 - 75.2 %) 90.5 H 81.9 H Lymphocytes % (20.5 - 51.1 %) 6.5 L 5.7 L Monocytes % (1.7 - 9.3 %) 2.8 12.4 H Eosinophils % (0 - 5 %) 0.1 0 Basophils % (0.0 - 2.0 %) 0.1 0 L Absolute Granulocytes (1.4 - 6.5 /CUMM) 10.3 H 12.6 H Absolute Lymphocytes (1.2 - 3.4 /CUMM) 0.7 L 0.9 L Absolute Monocytes (0.10 - 0.60 /CUMM) 0.3 1.9 H Absolute Eosinophils (0.0 - 0.7 /CUMM) 0 0 Absolute Basophils (0.0 - 0.2 /CUMM) 0 0 PUBS MCHC (33.0 - 37.0 G/DL) 33.5 33.4 Immunology Rheum Factor Semi-Quant (<12 IU/Ml) 13.9 H 08/29 08/28 0600 1430 Miscellaneous Ref Lab Test Result (()) REPORT Ref Lab Test Result (()) REPORT Urines Urinalysis MANY H Urine Color (YEL,AMB,STR) AJIT Urine Clarity (CLEAR) CLDY H Urine pH (5.0 - 8.0) 6.0 Ur Specific [place] (1.001 - 1.035) 1.025 Urine Protein (NEG,<30 MG/DL) >=300 H Urine Ketones (NEG) NEG Urine Nitrite (NEG) NEG Urine Bilirubin (NEG) NEG Urine Urobilinogen (0.1 - 1.0 EU/dl) 0.2 Ur Leukocyte Esterase (NEG) TRACE H Ur Microscopic SEDIMENT EXAMINED Urine RBC (0 - 5 /HPF) >75 H Urine WBC (0 - 2 /HPF) 5-10 H Ur Epithelial Cells (NONE,FEW) RARE Urine Bacteria (NEG/NONE) RARE H Urine Hemoglobin (NEG) LARGE H Urine Glucose (N MG/DL) NEG Imaging/Other Studies: EXAM TYPE: RAD - XRY-PORTABLE CHEST XRAY EXAMINATION: XR PORTABLE CHEST CLINICAL INFORMATION: Bilateral wheezing. Increased respiratory effort. COMPARISON: Chest x-ray 08/28/2016. TECHNIQUE: Portable AP view of the chest was obtained. FINDINGS: The visualized lungs appear mildly hypoinflated. There is persistent elevation of the right hemidiaphragm. There is minimal dependent bibasilar atelectasis. In comparison to the prior examination, there has been interval placement of a right jugular large bore central venous catheter which is visualized terminating within the right atrium. Cardiomediastinal blunting of the bilateral costophrenic angles, right greater than left, corresponds to previously identified small bilateral pleural effusions. Contours are stable. Soft tissues appear unremarkable. No acute osseous abnormality. IMPRESSION: Interval placement of a right jugular central venous catheter, which is visualized terminating within the right atrium. Otherwise, stable appearance of the chest. Stable bilateral pleural effusions, right greater than left. Stable prominence of the cardiac silhouette with mild central venous congestion. No overt pulmonary edema.
--- NOTE | 2016-08-31 12:07 | PN- Cardiology ---
Subjective Subjective: The patient is awake, alert States dyspnea has improved; however, significant cough persists The events of the last 24 hours as well as telemetry were reviewed. Review of Systems: The review of systems is negative for chest pains, palpitations nor lightheadedness. The remainder of the 14 point review of systems is noncontributory with the exception of above. Objective Vital Signs and I&Os Vital Signs Date Time Temp Pulse Resp B/P Pulse O2 O2 Flow FiO2 Ox Delivery Rate 08/31 0857 94 Room Air 08/31 0808 97.5 98 24 176/98 96 Room Air 08/30 2237 98.0 107 24 138/80 95 Room Air 08/30 1910 95 Room Air 08/30 1643 98 144/90 08/30 1640 98.0 98 28 144/90 94 Room Air 08/30 1600 94 Room Air Intake & Output 08/31 1600 08/31 0800 /08 0000 08/30 1600 08/30 0800 / 0000 Intake Total 1360 1600 Output Total 1250 2 Balance 110 1598 Intake, IV 1000 1000 Intake, Oral 360 600 Number 2 1 Bowel Movements Output, 1000 Dialysate Output, Other 2 Output, Urine 250 Patient 245 lb 239 lb Weight Physical Exam: General: Nontoxic, no apparent distress. HEENT: Sclera and conjunctiva within normal limits, without xanthelasmas. Neck: Carotids 2+ without bruits. Respiratory: Diffuse rhonchi and rales, air movement is decreased throughout, without accessory respiratory muscle use. Heart: Regular rate and rhythm, without murmurs, without JVD. Abdomen: Soft, nontender, no masses, normoactive bowel sounds. Extremities: Without clubbing, cyanosis, approximately 1 mm of pitting edema in both lower extremities. Neuro: Nonfocal exam, strength, 5 out of 5 Skin: Within normal limits without lesions. Psych: Mood and affect: Normal Current Medications: Current Medications Sig/Dagoberto Start time Last Medication Dose Route Stop Time Status Admin Acetaminophen 650 MG Q6P PRN 08/23 2345 AC 08/30 PO 2203 Albuterol Sulfate 3 ML Q4P PRN 08/30 1645 AC 08/31 INH 0855 Albuterol Sulfate 3 ML BID 08/26 2200 DC 08/30 INH 0754 Benzocaine/Menthol 1 SUKH Q4P PRN 08/31 1100 AC PO Benzonatate 100 MG .STK-MED ONE 08/30 1646 DC PO 08/30 1647 Benzonatate 100 MG TID PRN 08/25 1115 AC 08/30 PO 1652 Bisacodyl 5 MG DAILY 08/27 1358 AC 08/30 PO 1642 Cholecalciferol 1,000 IU DAILY 08/29 1046 AC 08/30 PO 1643 Folic Acid 1 MG DAILY 08/24 1000 AC 08/30 PO 1642 Guaifenesin 10 ML .STK-MED ONE 08/30 2155 DC PO 08/30 2156 Guaifenesin 10 ML .STK-MED ONE 08/30 1306 DC PO 08/30 1307 Guaifenesin 10 ML Q6P PRN 08/26 1530 AC 08/30 PO 2203 Lorazepam 0 Q1P PRN 08/24 2345 AC IV Methylprednisolone 1,000 MG 1430 08/29 1430 AC 08/30 Sodium Chloride 1,000 ML IV 08/31 1829 1714 Metoprolol Succinate 50 MG DAILY 08/30 1000 AC 08/30 PO 1643 Multivitamins 1 TAB DAILY 08/24 1000 AC 08/30 PO 1642 Omeprazole 40 MG DAILY AC 08/29 1045 AC 08/31 PO 0606 Patient Medication 1 ED .STK-MED ONE 08/30 1403 DC Teaching ED 08/30 1404 Phenol 2 SPRAY Q2P PRN 08/30 0900 AC 08/30 EXT 0931 Phytonadione 10 MG ONCE ONE 08/31 0930 DC PO 08/31 0931 Phytonadione 10 MG DAILY 08/30 1230 DC 08/30 PO 1252 Polyethylene Glycol 17 GM DAILY 08/27 1358 AC 08/28 PO 1038 Prednisone 60 MG DAILY 09/01 1000 AC PO Thiamine HCl 100 MG DAILY 08/24 1000 AC 08/30 PO 1643 Results Last 48 Hrs of Labs/Mics: Laboratory Tests 08/31/16 0655: Anion Gap 17 H, Estimated GFR 7 L, BUN/Creatinine Ratio 15.8, Magnesium 2.9 H , PT 18.8 H, INR 1.80 H, CBC w Diff NO MAN DIFF REQ, RBC 4.08 L, MCV 88.0, MCH 29.7, RDW 14.6 H, MPV 7.9, Gran % 88.7 H, Lymphocytes % 5.7 L, Monocytes % 5.5, Eosinophils % 0, Basophils % 0.1, Absolute Granulocytes 10.0 H, Absolute Lymphocytes 0.6 L, Absolute Monocytes 0.6, Absolute Eosinophils 0, Absolute Basophils 0, PUBS MCHC 33.7 08/30/16 0612: Anion Gap 14, Estimated GFR 8 L, BUN/Creatinine Ratio 17.5 08/30/16 0612: Prot Electrophoresis Pending, Total Protein (PEP) Pending, Albumin % (PEP) Pending, [id number] Pending, Merxf-[id number] Pending, Nttu-[id number] Pending, [id number] Pending, Gamma Globulins Pending, Abnorm Protein Band 1 Pending, Abnorm Protein Band 2 Pending, Abnorm Protein Band 3 Pending, PT 23.0 H, INR 2.21 H, CBC w Diff NO MAN DIFF REQ, RBC 4.08 L, MCV 88.4, MCH 29.6, RDW 14.6 H, MPV 8.4, Gran % 90.5 H, Lymphocytes % 6.5 L, Monocytes % 2.8, Eosinophils % 0.1, Basophils % 0.1, Absolute Granulocytes 10.3 H, Absolute Lymphocytes 0.7 L, Absolute Monocytes 0.3, Absolute Eosinophils 0, Absolute Basophils 0, PUBS MCHC 33.5 Assessment/Plan Assessment/Plan 1. Progressive renal failure with hyperkalemia with suspicion for glomerulonephritis 2. Persistent atrial fibrillation on anticoagulation with Coumadin on hold 3. History of coronary artery disease/prior myocardial infarction with mild to moderate left ventricular dysfunction by previous noninvasive imaging 4. Hyponatremia 5. Small bilateral pleural effusions 6. Chronic left bundle branch block 7. Hx HTN 8. Venous insufficiency Acute kidney injury: Appreciate nephrology input. We will continue to hold anticoagulation in anticipation of a biopsy. The patient has persistent atrial fibrillation with no history of CVA, and therefore no ridging would be required with heparin, especially given his increased risk. Further warfarin reversal with vitamin K will be administered. Continue telemetry? Yes
--- NOTE | 2016-08-31 12:42 | ECHOCARDIOGRAM REPORT ---
AMELIA VALVERDE Age: 71 : 1945 Gender: M Exam Date: 08/30/2016 19:23 Exam Location: [address] Ht (in): 71 Wt (lb): 199 BSA: 2.14 BP: 160 / 90 Ordering Physician: SHAAN CALLE MD Referring Physician: Fransico Stanley M.D. Technologist: Mariella Iniguez [facility] Room Number: [id number] Indications: CARDIOMYOPATHY Rhythm: Technical Quality: FINDINGS Left Ventricle Mildly dilated LV chamber size, with normal wall thickness. The estimated LVEF is 20%. There is severe global hypokinesis and septal akinesis. Right Ventricle Grossly normal appearing right ventricular structure and function. Right Atrium Normal appearing right atrium Left Atrium Moderately enlarged left atrial chamber size. Mitral Valve Mildly calcified mitral valvular leaflets and annulus. There is adequate leaflet opening. There is at least moderate mitral regurgitation. Aortic Valve Mildly calcified trileaflet aortic valve, with adequate leaflet opening. There is mild aortic insufficiency. Tricuspid Valve Mildly calcified tricuspid valvular annulus. There is moderate tricuspid regurgitation. There is pulmonary hypertension with an estimated PA systolic pressure of 46 mmHg Pulmonic Valve Grossly normal. Pulmonic valvular leaflets Pericardium There is no pericardial effusion Great Vessels Grossly normal appearing aortic root and ascending aorta CONCLUSIONS Mildly dilated LV chamber size, with normal wall thickness. The estimated LVEF is 20%. There is severe global hypokinesis and septal akinesis. Mildly calcified mitral valvular leaflets and annulus. There is adequate leaflet opening. There is at least moderate mitral regurgitation. There is mild aortic insufficiency. There is moderate tricuspid regurgitation. There is pulmonary hypertension with an estimated PA systolic pressure of 46 mmHg. Estuardo Perez M.D. (Electronically Signed) Final Date: 31 August 2016 12:41 MEASUREMENTS (Male / Female) Normal Values 2D ECHO LV Diastolic Diameter PLAX 5.6 cm 4.2 - 5.9 / 3.9 - 5.3 cm LV Systolic Diameter PLAX 4.5 cm 2.1 - 4.0 cm LV Fractional Shortening PLAX 19.6 % 25 - 46 % LV Ejection Fraction 2D Teich 39.8 % IVS Diastolic Thickness 1.1 cm LVPW Diastolic Thickness 1.0 cm LV Relative Wall Thickness 0.4 RV Internal Dim ED PLAX 3.4 cm 1.9 - 3.8 cm LVOT Diameter 2.5 cm Aortic Root Diameter 3.3 cm LA Systolic Diameter LX 4.7 cm 3.0 - 4.0 / 2.7 - 3.8 cm LA Volume 103.0 cm 18 - 58 / 22 - 52 cm Ascending Aorta Diameter 3.2 cm DOPPLER AV Peak Velocity 208.0 cm/s AV Peak Gradient 17.3 mmHg AV Mean Velocity 142.0 cm/s AV Mean Gradient 10.0 mmHg AV Velocity Time Integral 41.0 cm AI Deceleration Stephenson 222.0 cm/s AI Peak Velocity 396.0 cm/s AI Pressure Half Time 524.0 ms AI Peak Gradient 62.7 mmHg LVOT Peak Velocity 105.0 cm/s LVOT Peak Gradient 4.4 mmHg LVOT Mean Velocity 66.5 cm/s LVOT Mean Gradient 2.0 mmHg LVOT Velocity Time Integral 18.0 cm LVOT Stroke Volume 88.4 cm AV Area Cont Eq vti 2.2 cm AV Area Cont Eq pk 2.5 cm MV Peak Velocity 149.0 cm/s MV Peak Gradient 8.9 mmHg MV Mean Velocity 83.6 cm/s MV Mean Gradient 3.0 mmHg Mitral E Point Velocity 146.0 cm/s MV PHT Velocity 151.0 cm/s MV Deceleration Stephenson 418.0 cm/s MV Pressure Half Time 108.4 ms MV Area PHT 2.0 cm MV Deceleration Time 158.0 ms TR Peak Velocity 303.0 cm/s TR Peak Gradient 36.7 mmHg Right Atrial Pressure 10.0 mmHg Pulmonary Artery Systolic Pressu 46.7 mmHg Right Ventricular Systolic Press 46.7 mmHg PV Peak Velocity 114.0 cm/s PV Peak Gradient 5.2 mmHg PV Mean Velocity 70.7 cm/s PV Mean Gradient 2.0 mmHg PV Velocity Time Integral 14.5 cm LV E' Lateral Velocity 10.8 cm/s Mitral E to LV E' Lateral Ratio 13.5 LV E' Septal Velocity 7.7 cm/s Mitral E to LV E' Septal Ratio 19.0
[2016-08-31 17:01] VITALS: BP 160/70
--- NOTE | 2016-08-31 20:27 | NUR ---
SPOKE WITH PT RE: GIVING INFO TO VISITORS. OK TO SHARE MEDICAL INFORMATION WITH FAMILY AND FRIENDS PER PT.
[2016-08-31 23:55] VITALS: BP 132/78
[2016-08-31 23:56] VITALS: BP 98/50
[2016-09-01 08:05] LABS: ABSOLUTE BASOPHIL COUNT 0 /CUMM (0.0-0.2); ABSOLUTE EOSINOPHIL COUNT 0 /CUMM (0.0-0.7); ABSOLUTE LYMPH COUNT 0.4 /CUMM (1.2-3.4); ABSOLUTE MONOCYTE COUNT 0.6 /CUMM (0.10-0.60); BASOPHIL % 0.1 % (0.0-2.0); EOSINOPHIL % 0 % (0-5); MEAN CORPUSCULAR HGB 29.3 PG (27.0-31.0); MEAN CORPUSCULAR HGB CONC 33.1 G/DL (33.0-37.0); MEAN CORPUSCULAR VOLUME 88.5 FL (80.0-94.0); MEAN PLATELET VOLUME 7.9 FL (7.4-10.4); PLATELET COUNT 130 /CUMM (130-400); RBC DISTRIBUTION WIDTH 14.8 % (11.5-14.5); RED BLOOD CELL CT 3.85 /CUMM (4.70-6.10); WHITE BLOOD CELL COUNT 10.1 /CUMM (4.8-10.8)
--- NOTE | 2016-09-01 08:23 | PN- Wound Care ---
Subjective Subjective: Patient is status post dialysis but continues to have significant lower extremity edema. Right lower extremity wound continues to have copious serous drainage. Objective Vital Signs and I&Os Vital Signs Result Date Time Pulse Ox 96 09/01 0000 B/P 98/50 08/31 2356 O2 Delivery Room Air 09/01 2355 Temp 98.2 09/01 2355 Pulse 68 08/31 2356 Resp 20 08/31 235 O2 Flow Rate Room Air 08/31 1903 Intake & Output 09/01 0000 08/31 1600 08/31 0800 Intake Total 670 Output Total 150 Balance 520 Intake, IV 550 Intake, Oral 120 Output, Urine 150 Patient 245 lb Weight Right lower extremity ulcer has red fill there is copious serous drainage there is persistent edema. Impression/Plan Impression/Plan Impression/Plan: 71-year-old gentleman with chronic venous insufficiency venous stasis ulcer admitted with acute kidney injury now undergoing dialysis. Recommend continued Xeroform. His leg should be elevated above his heart and Akbar wrap can be applied from his feet to the popliteal fossa.
--- NOTE | 2016-09-01 08:26 | PN- Housestaff ---
GILBERT BERNSTEIN 09/01/16 0817: Subjective Follow-up For: Rash Acute renal failure Hyperkalemia Atrial fibrillation HFrEF Tele-Events Since Last Visit: A. fib, 80s to 90s, PVCs, 4 beat V. tach Subjective: Seen and examined patient, complains of abdominal discomfort and distention. States he is unable to lie flat for long periods of time and therefore is unable to sleep. Denies fever, chills, shortness of breath. States that he is not urinating well. Review of Systems Constitutional: Reports: weakness. Denies: chills, diaphoresis, fever, malaise, unexplained weight loss. Cardiovascular: Denies: chest pain, edema, orthopena, palpitations, peripheral edema, syncope. Respiratory: Reports: cough. Denies: hemoptysis, orthopnea, short of breath, sputum production, stridor, wheezing. Gastrointestinal: Reports: distention. Objective Last 24 Hrs of Vital Signs/I&O Vital Signs Date Time Temp Pulse Resp B/P Pulse O2 O2 Flow FiO2 Ox Delivery Rate 09/01 0000 96 08/31 2356 98.2 68 20 98/50 95 Room Air 08/31 2355 97.9 73 20 132/78 97 Room Air 08/31 1903 95 Room Air Room Air 08/31 1701 97.3 112 20 160/70 96 Room Air 08/31 1651 160/70 08/31 0857 94 Room Air Intake & Output 09/01 1600 09/01 0800 09/01 0000 Intake Total 480 670 Output Total 200 150 Balance 280 520 Intake, IV 550 Intake, Oral 480 120 Output, Urine 200 150 Physical Exam General Appearance: Alert, Oriented X3, Cooperative, No Acute Distress Skin: mitzi- catth in place in left upper chest, resolving rash seen Cardiovascular: Normal S1, Normal S2, irregularly, irreg Lungs: Clear to Auscultation, Normal Air Movement Abdomen: Normal Bowel Sounds, Soft, No Tenderness, No Masses, distended Extremities: +2 pitting edema, dressing over right lower leg ulcer Current Medications: Current Medications Sig/Dagoberto Start time Last Medication Dose Route Stop Time Status Admin Acetaminophen 650 MG Q6P PRN 08/23 2345 AC 08/30 PO 2203 Albuterol Sulfate 3 ML Q4P PRN 08/30 1645 AC 08/31 INH 1901 Benzocaine/Menthol 1 SUKH Q4P PRN 08/31 1100 AC PO Benzonatate 100 MG TID PRN 08/25 1115 AC 08/30 PO 1652 Bisacodyl 5 MG DAILY 08/27 1358 AC 08/31 PO 1650 Cholecalciferol 1,000 IU DAILY 08/29 1046 AC 08/31 PO 1651 Folic Acid 1 MG DAILY 08/24 1000 AC 08/31 PO 1650 Guaifenesin 10 ML Q6P PRN 08/26 1530 AC 08/30 PO 2203 Lorazepam 0 Q1P PRN 08/24 2345 DC IV Methylprednisolone 1,000 MG 1430 08/29 1430 DC 08/31 Sodium Chloride 1,000 ML IV 08/31 1829 1653 Metoprolol Succinate 50 MG DAILY 08/30 1000 AC 08/31 PO 1651 Multivitamins 1 TAB DAILY 08/24 1000 AC 08/31 PO 1651 Omeprazole 40 MG DAILY AC 08/29 1045 AC 09/01 PO 0759 Phenol 2 SPRAY Q2P PRN 08/30 0900 AC 09/01 EXT 0759 Phytonadione 10 MG ONCE ONE 08/31 0930 DC 08/31 PO 08/31 0931 1652 Polyethylene Glycol 17 GM DAILY 08/27 1358 AC 08/31 PO 1650 Prednisone 60 MG DAILY 09/01 1000 AC PO Thiamine HCl 100 MG DAILY 08/24 1000 AC 08/31 PO 1651 Last 24 Hrs of Lab/Hemal Results Last 24 Hrs of Labs/Mics: Laboratory Tests 09/01/16 0611: Sodium Pending, Potassium Pending, Chloride Pending, Carbon Dioxide Pending, Anion Gap Pending, BUN Pending, Creatinine Pending, BUN/Creatinine Ratio Pending , Phosphorus Pending, Magnesium Pending, PT Pending, INR Pending, CBC w Diff Pending, WBC Pending, RBC Pending, Hgb Pending, Hct Pending, MCV Pending, MCH Pending, RDW Pending, Plt Count Pending, MPV Pending, PUBS MCHC Pending Assessment/Plan Assessment: 71-year-old gentleman with past medical history significant for atrial fibrillation on Coumadin, hypertension, CAD status post stents, recently admitted 3 weeks ago after significant bleeding from varicose vein requiring 2 units transfusion with current admission for worsening lower right leg pain and acute development of diffusely spreading petechial rash. Admitted to the general medicine floor with the following investigations were done: Fibrinogen activity 417, Fibrinogen products greater than 10, d-dimer 1789 Hepatitis panel negative, HIV nonreactive, antinuclear antibody negative, MARTIN and complement levels are normal, ESR was 36, c and p ANCA negative C-reactive protein 5.9. Venous Doppler negative for any deep vein thrombosis. Was transferred to the telemetry floor on 08/29/16 as his Coumadin and aspirin was going to be held in anticipation of renal biopsy and to monitor for any arrhythmias. States today that his hemoptysis was not as frequent as yesterday. Had a three beat VT overnight and has an epsiode NSVT during dialysis, he was asymptomatic and hemodynamically stable. 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 * Normal kampa/ lambda light chain ratio, myeloperoxidase antibody negative * Pulm on board * will be started on 60mg PO prednisone today acute renal failure with hyperkalemia * HSP vs cardiorenal * Potassium levels 5.1 today, * Status post Raul cath Placement, site looks clean no signs of infection * Cr of 6.1 today * renal biopsy possibly on monday, nephrology on board appreciate recommendations * continue renal dialysis diet Right lower extremity ulcer * Wound on board. Atrial fibrillation/HFrEF * Coumadin and aspirin discontinued secondary to hemoptysis as well as in anticipation of renal biopsy possibly on * Cardiology on board, Echo shows reduced EF of 25%, in November 2015 EF was approx 45% * CHADVASc score now 4 putting him at mod-high risk for stroke, will be started on IV heparin, will be held on Monday midnight in anticipation of renal biopsy on Monday * Will resume his aspirin as soon as possible after his renal biopsy * INR 1.87, will be dosed 10mg of PO vit K today, target INR of <1.1. Dose vit K as needed to achieve target INR. * will trend troponin Hypertension * continue Toprol XL 50mg, advised statin - was not started by previous team as they wanted to minimize introducing new drugs prior to r/o drug induced cause CAD status post stents * Off aspirin DVT prophylaxis * Patient is currently not on any DVT prophylaxis as he is off AC in anticipation renal biopsy, mechanical Alps is contraindicated as he has +2 bilateral pedal edema along with venous stasis ulcer. CODE STATUS * DNR/DNI Problem List: 1. Petechial rash 2. Acute kidney injury 3. Atrial fibrillation 4. HFrEF (heart failure with reduced ejection fraction) Pain Ratin Pain Location: na Pain Goal: Pain 4 or less Pain Plan: current regimen Tomorrow's Labs & Rationales: cbc/bep/mg Consulting Request: Consulting Specialty: Hematology/Oncology MANOLO AMES MD 09/01/16 1414: Attending MD Review Statement Attending Statement Attending MD Statement: examined this patient, discuss w/resident/PA/PRESENTATION DESIGNER, agreed w/resident/PA/PRESENTATION DESIGNER, reviewed EMR data (avail), discussed with nursing, discussed with case mgmt, reviewed images Attending Assessment/Plan: Feels very tired and wiped out. He also had an episode of nonsustained VT brief earlier and more prolonged today. Dr. Gaudencio Garcia review the echo results with us in between November 2015 and now his EF has dropped from 40-25%. He is an extremely complex and 71-year-old male with underlying CAD, A. fib who was on Coumadin in the past and now with acute systolic heart failure. 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 He is getting pulse dose steroids with dialysis. The plan is a renal biopsy when his INR approaches less than 1. Given his low EF his chads score has increased and now will need to start him on IV unfractionated heparin and watch the PTT and keep it therapeutic while aiming to keep the INR less than 1 for renal biopsy early next week.
[2016-09-01 08:30] LABS: PT 19.5 SEC (9.4-12.5)
[2016-09-01 08:41] VITALS: BP 138/95
[2016-09-01 09:10] LABS: GRANULOCYTE % 89.9 % (42.2-75.2)
--- NOTE | 2016-09-01 09:38 | PN- Cardiology ---
Subjective Subjective: Telemetry reviewed. Atrial fibrillation with controlled ventricular rate. Short run of nonsustained ventricle tachycardia. Patient complains of coughing mucus, abdominal pain and just a general feeling of malaise Objective Vital Signs and I&Os Vital Signs Date Time Temp Pulse Resp B/P Pulse O2 O2 Flow FiO2 Ox Delivery Rate 09/01 0916 97.4 09/01 0841 94 18 138/95 97 Room Air 09/01 0000 96 08/31 2356 98.2 68 20 98/50 95 Room Air 08/31 2355 97.9 73 20 132/78 97 Room Air 08/31 1903 95 Room Air Room Air 08/31 1701 97.3 112 20 160/70 96 Room Air 08/31 1651 160/70 Intake & Output 09/01 1600 09/01 0800 09/01 0000 08/31 1600 08/31 0800 08/31 0000 Intake Total 256 865 2296 Output Total 184 910 1318 Balance 280 520 110 Intake, IV 550 1000 Intake, Oral 480 120 360 Number 2 Bowel Movements Output, 1000 Dialysate Output, Urine 200 150 250 Patient 245 lb 239 lb Weight Physical Exam: Patient appears comfortable sitting at the edge of bed. Head normocephalic/atraumatic [place] eyes sclera anicteric conjunctiva showed no pallor extraocular muscles were normal neck mild jugular venous distention no thyroid masses no palpable nodes Chest lungs were clear bilaterally Heart irregular rhythm with a ventricular rate around 70 1/6 systolic murmur . Abdomen significantly distended no organomegaly Extremities no clubbing cyanosis, bilateral edema Neurological no gross motor or sensory deficits Current Medications: Current Medications Sig/Dagoberto Start time Last Medication Dose Route Stop Time Status Admin Acetaminophen 650 MG Q6P PRN 08/23 2345 AC 08/30 PO 2203 Albuterol Sulfate 3 ML Q4P PRN 08/30 1645 AC 08/31 INH 1901 Benzocaine/Menthol 1 SUKH Q4P PRN 08/31 1100 AC PO Benzonatate 100 MG TID PRN 08/25 1115 AC 08/30 PO 1652 Bisacodyl 5 MG DAILY 08/27 1358 AC 08/31 PO 1650 Cholecalciferol 1,000 IU DAILY 08/29 1046 AC 08/31 PO 1651 Folic Acid 1 MG DAILY 08/24 1000 AC 08/31 PO 1650 Guaifenesin 10 ML Q6P PRN 08/26 1530 AC 08/30 PO 2203 Lorazepam 0 Q1P PRN 08/24 2345 DC IV Methylprednisolone 1,000 MG 1430 08/29 1430 DC 08/31 Sodium Chloride 1,000 ML IV 08/31 1829 1653 Metoprolol Succinate 50 MG DAILY 08/30 1000 AC 08/31 PO 1651 Multivitamins 1 TAB DAILY 08/24 1000 AC 08/31 PO 1651 Omeprazole 40 MG DAILY AC 08/29 1045 AC 09/01 PO 0759 Phenol 2 SPRAY Q2P PRN 08/30 0900 AC 09/01 EXT 0759 Phytonadione 10 MG DAILY 09/01 1000 UNVr PO Polyethylene Glycol 17 GM DAILY 08/27 1358 AC 08/31 PO 1650 Prednisone 60 MG DAILY 09/01 1000 AC PO Thiamine HCl 100 MG DAILY 08/24 1000 AC 08/31 PO 1651 Results Last 48 Hrs of Labs/Mics: Laboratory Tests 09/01/16 0611: Anion Gap 12, Estimated GFR 9 L, BUN/Creatinine Ratio 14.9, Phosphorus 8.0 H, Magnesium 2.7 H, PT 19.5 H, INR 1.87 H, CBC w Diff NO MAN DIFF REQ, RBC 3.85 L, MCV 88.5, MCH 29.3, RDW 14.8 H, MPV 7.9, Gran % 89.9 H, Lymphocytes % 4.3 L, Monocytes % 5.7, Eosinophils % 0, Basophils % 0.1, Absolute Granulocytes 9.0 H, Absolute Lymphocytes 0.4 L, Absolute Monocytes 0.6, Absolute Eosinophils 0, Absolute Basophils 0, PUBS MCHC 33.1 08/31/16 0655: Anion Gap 17 H, Estimated GFR 7 L, BUN/Creatinine Ratio 15.8, Magnesium 2.9 H , PT 18.8 H, INR 1.80 H, CBC w Diff NO MAN DIFF REQ, RBC 4.08 L, MCV 88.0, MCH 29.7, RDW 14.6 H, MPV 7.9, Gran % 88.7 H, Lymphocytes % 5.7 L, Monocytes % 5.5, Eosinophils % 0, Basophils % 0.1, Absolute Granulocytes 10.0 H, Absolute Lymphocytes 0.6 L, Absolute Monocytes 0.6, Absolute Eosinophils 0, Absolute Basophils 0, PUBS MCHC 33.7 Recent Imaging Studies: Echocardiogram revealed Mildly dilated LV chamber size, with normal wall thickness. The estimated LVEF is 20%. There is severe global hypokinesis and septal akinesis. Mildly calcified mitral valvular leaflets and annulus. There is adequate leaflet opening. There is at least moderate mitral regurgitation. There is mild aortic insufficiency. There is moderate tricuspid regurgitation. There is pulmonary hypertension with an estimated PA systolic pressure of 46 mmHg. Assessment/Plan Assessment/Plan In summary this 71-year-old gentleman was admitted with the following problems #1 Petechiae or rash progressive renal failure suggesting glomerular nephritis suggesting HSP. #2. Known coronary artery disease with previous infarct. #3. Cardiomyopathy. There has been a deterioration in left ventricular ejection fraction compared to 2016 when it was 45% and recent echo suggested is 20%. Etiology of this depressed ejection fraction could be multifactorial related to stress induced cardiomyopathy, volume overload, and possibly ischemic heart disease as well and possibly due to left bundle branch block. #4. Renal failure. He is on dialysis at the moment. Renal biopsies pending for etiology of rapidly progressing renal failure. #5. Atrial fibrillation with controlled ventricular rate and pre-existing left bundle branch block. He currently is on no anticoagulation as he is being prepared for renal biopsy. However having developed cardiomyopathy he is at high risk for cardioembolic events. I may suggest bridging with intravenous heparin as his INR is decreasing. #6. After removing significant volume through dialysis would recheck his echocardiogram and left ventricular ejection fraction. Continue telemetry? Yes
--- NOTE | 2016-09-01 10:53 | PN- Nephrology ---
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 Given newly reduced LVEF, not clear whether significant increase in SCr over weekend was 2/2 GN (RPGN) vs ATN from acute cardiorenal syndrome (granular casts were seen on his UA). He has received pulse dose steroids. He was started on dialysis on Monday. He needs a renal biopsy but his INR remains elevated. I don't think that this is going to happen before Monday. Would continue giving Vitamin K and would consider IV heparin while awaiting kidney biopsy. I would tentatively plan for the biopsy on Monday. Based on his serologic labs, there is no clear indication for pheresis at this time. Suggestion: -Cont on 60mg PO prednisone daily -f/u cryoglobulin -Dialysis today -Next dialysis on Monday -Continue to hold aspirin -Please cont to give 10mg PO Vit K daily to bring down INR -At this point, would tentatively plan for renal biopsy on Monday -If heparin gtt is started, please make sure that it is stopped at midnight on the night before the biopsy -Would check troponin - ?ischemic event Please call [phone] with ?'s Subjective Subjective: 1st dialysis treatment yesterday - ~2.5L fluid removed Found on TTE to have newly reduced LVEF 20% (LVEF 45% in 12/2015) Still coughing with some blood Last chest x-ray on 08/30 with L>R pleural effusions and prominent vascular markings Objective Vital Signs and I&Os Vital Signs Date Time Temp Pulse Resp B/P Pulse O2 O2 Flow FiO2 Ox Delivery Rate 09/01 0916 97.4 09/01 0841 94 18 138/95 97 Room Air 09/01 0000 96 08/31 2356 98.2 68 20 98/50 95 Room Air 08/31 2355 97.9 73 20 132/78 97 Room Air 08/31 1903 95 Room Air Room Air 08/31 1701 97.3 112 20 160/70 96 Room Air 08/31 1651 160/70 Intake & Output 09/01 1600 09/01 0400 08/31 1600 08/31 0400 08/30 1600 08/30 0400 Intake Total 505 971 0252 1600 Output Total 877 266 9545 2 Balance 280 617 590 8045 Intake, IV 550 1000 1000 Intake, Oral 480 120 360 600 Number 2 1 Bowel Movements Output, 1000 Dialysate Output, Other 2 Output, Urine 200 150 250 Patient 245 lb 239 lb Weight Physical Exam: Gen - mildly ill appearing HEENT - supple CV - RRR Chest - bibasilar crackles Abd - soft, nontender Ext - 2+ edema Skin - rash is more confluent Neuro - AOX3 Current Medications: Current Medications Sig/Dagoberto Start time Last Medication Dose Route Stop Time Status Admin Acetaminophen 650 MG Q6P PRN 08/23 2345 AC 08/30 PO 2203 Albuterol Sulfate 3 ML Q4P PRN 08/30 1645 AC 08/31 INH 1901 Benzocaine/Menthol 1 SUKH Q4P PRN 08/31 1100 AC PO Benzonatate 100 MG TID PRN 08/25 1115 AC 08/30 PO 1652 Bisacodyl 5 MG DAILY 08/27 1358 AC 08/31 PO 1650 Cholecalciferol 1,000 IU DAILY 08/29 1046 AC 08/31 PO 1651 Folic Acid 1 MG DAILY 08/24 1000 AC 08/31 PO 1650 Guaifenesin 10 ML Q6P PRN 08/26 1530 AC 08/30 PO 2203 Heparin Sodium/ 25,000 UNIT Q24H 09/01 1000 AC Dextrose IV Dextrose/Water 500 ML Lorazepam 0 Q1P PRN 08/24 2345 DC IV Methylprednisolone 1,000 MG 1430 08/29 1430 DC 08/31 Sodium Chloride 1,000 ML IV 08/31 1829 1653 Metoprolol Succinate 50 MG DAILY 08/30 1000 AC 08/31 PO 1651 Multivitamins 1 TAB DAILY 08/24 1000 AC 08/31 PO 1651 Omeprazole 40 MG DAILY AC 08/29 1045 AC 09/01 PO 0759 Phenol 2 SPRAY Q2P PRN 08/30 0900 AC 09/01 EXT 0759 Phytonadione 10 MG DAILY 09/01 1000 DC PO 09/01 1001 Polyethylene Glycol 17 GM DAILY 08/27 1358 AC 08/31 PO 1650 Prednisone 60 MG DAILY 09/01 1000 AC PO Thiamine HCl 100 MG DAILY 08/24 1000 AC 08/31 PO 1651 Results Pertinent Lab Results: Laboratory Tests 09/01 08/31 0611 0655 Chemistry Sodium (137 - 145 mmol/L) 135 L 135 L Potassium (3.5 - 5.1 mmol/L) 5.1 5.5 H Chloride (98 - 107 mmol/L) 104 101 Carbon Dioxide (22 - 30 mmol/L) 19 L 17 L Anion Gap (5 - 16) 12 17 H BUN (9 - 20 mg/dL) 91 H 117 *H Creatinine (0.7 - 1.2 mg/dL) 6.1 *H 7.4 *H Estimated GFR (>60 ml/min) 9 L 7 L BUN/Creatinine Ratio (7 - 25 %) 14.9 15.8 Phosphorus (2.5 - 4.5 mg/dL) 8.0 H Magnesium (1.6 - 2.3 mg/dL) 2.7 H 2.9 H Coagulation PT (9.4 - 12.5 SEC) 19.5 H 18.8 H INR (0.90 - 1.17) 1.87 H 1.80 H Hematology CBC w Diff NO MAN DIFF REQ NO MAN DIFF REQ WBC (4.8 - 10.8 /CUMM) 10.1 11.3 H RBC (4.70 - 6.10 /CUMM) 3.85 L 4.08 L Hgb (14.0 - 18.0 G/DL) 11.3 L 12.1 L Hct (42 - 52 %) 34.0 L 35.9 L MCV (80.0 - 94.0 FL) 88.5 88.0 MCH (27.0 - 31.0 PG) 29.3 29.7 RDW (11.5 - 14.5 %) 14.8 H 14.6 H Plt Count (130 - 400 /CUMM) 130 162 MPV (7.4 - 10.4 FL) 7.9 7.9 Gran % (42.2 - 75.2 %) 89.9 H 88.7 H Lymphocytes % (20.5 - 51.1 %) 4.3 L 5.7 L Monocytes % (1.7 - 9.3 %) 5.7 5.5 Eosinophils % (0 - 5 %) 0 0 Basophils % (0.0 - 2.0 %) 0.1 0.1 Absolute Granulocytes (1.4 - 6.5 /CUMM) 9.0 H 10.0 H Absolute Lymphocytes (1.2 - 3.4 /CUMM) 0.4 L 0.6 L Absolute Monocytes (0.10 - 0.60 /CUMM) 0.6 0.6 Absolute Eosinophils (0.0 - 0.7 /CUMM) 0 0 Absolute Basophils (0.0 - 0.2 /CUMM) 0 0 PUBS MCHC (33.0 - 37.0 G/DL) 33.1 33.7 03/07 03/07 0612 0612 Chemistry Sodium (137 - 145 mmol/L) 130 L Potassium (3.5 - 5.1 mmol/L) 6.4 *H Chloride (98 - 107 mmol/L) 99 Carbon Dioxide (22 - 30 mmol/L) 17 L Anion Gap (5 - 16) 14 BUN (9 - 20 mg/dL) 124 *H Creatinine (0.7 - 1.2 mg/dL) 7.1 *H Estimated GFR (>60 ml/min) 8 L BUN/Creatinine Ratio (7 - 25 %) 17.5 Prot Electrophoresis (()) SEE NOTE Total Protein (PEP) (6.1 - 8.1 g/dL) 5.7 L Albumin % (PEP) (3.8 - 4.8 g/dL) 2.2 L Dbocb-8-Ztzcckfgl (0.2 - 0.3 g/dL) 0.7 H Lhaqu-3-Crihzayco (0.5 - 0.9 g/dL) 0.6 Jlah-0-Pkmjojoj (0.4 - 0.6 g/dL) 0.4 Wuml-9-Fgaslfks (0.2 - 0.5 g/dL) 0.5 Gamma Globulins (0.8 - 1.7 g/dL) 1.4 Coagulation PT (9.4 - 12.5 SEC) 23.0 H INR (0.90 - 1.17) 2.21 H Hematology CBC w Diff NO MAN DIFF REQ WBC (4.8 - 10.8 /CUMM) 11.4 H RBC (4.70 - 6.10 /CUMM) 4.08 L Hgb (14.0 - 18.0 G/DL) 12.1 L Hct (42 - 52 %) 36.1 L MCV (80.0 - 94.0 FL) 88.4 MCH (27.0 - 31.0 PG) 29.6 RDW (11.5 - 14.5 %) 14.6 H Plt Count (130 - 400 /CUMM) 186 MPV (7.4 - 10.4 FL) 8.4 Gran % (42.2 - 75.2 %) 90.5 H Lymphocytes % (20.5 - 51.1 %) 6.5 L Monocytes % (1.7 - 9.3 %) 2.8 Eosinophils % (0 - 5 %) 0.1 Basophils % (0.0 - 2.0 %) 0.1 Absolute Granulocytes (1.4 - 6.5 /CUMM) 10.3 H Absolute Lymphocytes (1.2 - 3.4 /CUMM) 0.7 L Absolute Monocytes (0.10 - 0.60 /CUMM) 0.3 Absolute Eosinophils (0.0 - 0.7 /CUMM) 0 Absolute Basophils (0.0 - 0.2 /CUMM) 0 PUBS MCHC (33.0 - 37.0 G/DL) 33.5 Imaging/Other Studies: EXAM TYPE: RAD - XRY-PORTABLE CHEST XRAY EXAMINATION: XR PORTABLE CHEST CLINICAL INFORMATION: Bilateral wheezing. Increased respiratory effort. COMPARISON: Chest x-ray 08/28/2016. TECHNIQUE: Portable AP view of the chest was obtained. FINDINGS: The visualized lungs appear mildly hypoinflated. There is persistent elevation of the right hemidiaphragm. There is minimal dependent bibasilar atelectasis. In comparison to the prior examination, there has been interval placement of a right jugular large bore central venous catheter which is visualized terminating within the right atrium. Cardiomediastinal blunting of the bilateral costophrenic angles, right greater than left, corresponds to previously identified small bilateral pleural effusions. Contours are stable. Soft tissues appear unremarkable. No acute osseous abnormality. IMPRESSION: Interval placement of a right jugular central venous catheter, which is visualized terminating within the right atrium. Otherwise, stable appearance of the chest. Stable bilateral pleural effusions, right greater than left. Stable prominence of the cardiac silhouette with mild central venous congestion. No overt pulmonary edema.
[2016-09-01 15:45] VITALS: BP 132/82
--- NOTE | 2016-09-01 17:38 | PN- Pulmonary ---
Subjective HPI/Critical Care Issues: The patient is awake and alert. He has some intermittent cough which is blood tinged. He continues to have peripheral edema. He is unsure if dialysis has helped as of yet. His rash continues to improve. He is awaiting dialysis today. Objective Current Medications: Current Medications Sig/Dagoberto Start time Last Medication Dose Route Stop Time Status Admin Acetaminophen 650 MG Q6P PRN 08/23 2345 AC 08/30 PO 2203 Albuterol Sulfate 3 ML Q4P PRN 08/30 1645 AC 08/31 INH 1901 Benzocaine/Menthol 1 SUKH Q4P PRN 08/31 1100 AC PO Benzonatate 100 MG TID PRN 08/25 1115 AC 08/30 PO 1652 Bisacodyl 5 MG DAILY 08/27 1358 AC 08/31 PO 1650 Cholecalciferol 1,000 IU DAILY 08/29 1046 AC 08/31 PO 1651 Folic Acid 1 MG DAILY 08/24 1000 AC 08/31 PO 1650 Guaifenesin 10 ML Q6P PRN 08/26 1530 AC 08/30 PO 2203 Lorazepam 0 Q1P PRN 08/24 2345 DC IV Methylprednisolone 1,000 MG 1430 08/29 1430 DC 08 Sodium Chloride 1,000 ML IV 08/31 1829 1653 Metoprolol Succinate 50 MG DAILY 08/30 1000 AC 08/31 PO 1651 Multivitamins 1 TAB DAILY 08/24 1000 AC 08/31 PO 1651 Omeprazole 40 MG DAILY AC 08/29 1045 AC 09/01 PO 0759 Phenol 2 SPRAY Q2P PRN 08/30 0900 AC 09/01 EXT 0759 Phytonadione 10 MG DAILY 09/01 1000 UNVr PO Phytonadione 10 MG ONCE ONE 08/31 0930 DC 08/31 PO 08/31 0931 1652 Polyethylene Glycol 17 GM DAILY 08/27 1358 AC 08/31 PO 1650 Prednisone 60 MG DAILY 09/01 1000 AC PO Thiamine HCl 100 MG DAILY 08/24 1000 AC 08/31 PO 1651 Vital Signs & I&O Last 24 Hrs of Vitals and I&O: Vital Signs Date Time Temp Pulse Resp B/P Pulse O2 O2 Flow FiO2 Ox Delivery Rate 09/01 0816 97.4 09/01 0841 94 18 138/95 97 Room Air 09/01 0000 96 08/31 2356 98.2 68 20 98/50 95 Room Air 08/31 2355 97.9 73 20 132/78 97 Room Air 08/31 1903 95 Room Air Room Air 08/31 1701 97.3 112 20 160/70 96 Room Air 08/31 1651 160/70 Intake & Output 09/01 1600 09/01 0800 09/01 0000 Intake Total 480 670 Output Total 200 150 Balance 280 520 Intake, IV 550 Intake, Oral 480 120 Output, Urine 200 150 Physical Exam General Appearance: well developed/nourished, alert, awake Head: atraumatic, normal appearance Neck: normal inspection, supple Respiratory: normal breath sounds, no respiratory distress, lungs clear Cardiovascular: regular rate/rhythm (S1 and S2 heard) Gastrointestinal: normal bowel sounds, soft, non-tender Extremities: right lower extremity ecchymosis with a dressing in place Skin: diffuse petechial rash over the lower extremities (improved), anterior abdomen, and forearms, improving Results Last 24 Hrs of Lab Results: Laboratory Tests 09/01/16 0611: Anion Gap 12, Estimated GFR 9 L, BUN/Creatinine Ratio 14.9, Phosphorus 8.0 H, Magnesium 2.7 H, PT 19.5 H, INR 1.87 H, CBC w Diff NO MAN DIFF REQ, RBC 3.85 L, MCV 88.5, MCH 29.3, RDW 14.8 H, MPV 7.9, Gran % 89.9 H, Lymphocytes % 4.3 L, Monocytes % 5.7, Eosinophils % 0, Basophils % 0.1, Absolute Granulocytes 9.0 H, Absolute Lymphocytes 0.4 L, Absolute Monocytes 0.6, Absolute Eosinophils 0, Absolute Basophils 0, PUBS MCHC 33.1 Impression/Plan Impression/Plan Impression/Plan: 1. Hemoptysis - no evidence of pulmonary hemorrhage, no progressive anemia although Hgb is slightly decreased today. No role for bronchoscopy at present. Sputum cytology is negative. 2. Minimal nonspecific ground glass opacities, atelectasis. No evidence of ILD. 3. Nonspecific lung nodules which will need ongoing follow up in 3-6 months. 4. Very small bilateral effusions, not enough to tap. 5. Extensive petechial rash - improving. Skin biopsy could be suggestive of a leukocytoclastic vasculitis, or neutrophilic dermatosis. Further studies are suggested as the biopsy is nonspecific. 6. CHARLES - worsening renal function thought to be related to underlying GN. Patient is being prepared for dialysis. 7. Hyponatremia - stable. 8. Hyperkalemia in the setting of acute renal failure. Recommendations: * Continue to monitor for gross hemoptysis. Call pulmonary if significant bleeding. * Continue multivitamin, thiamine and folate. * TRC for nebulizer treatments as needed. * INR reversal in anticipation of possible renal biopsy. * Renal failure management/dialysis per nephrology. * Continue all supportive care.
--- NOTE | 2016-09-01 17:55 | NUR ---
ARRYTHMIA 11:36 AM NOTIFIED BY TELEPHONE ORDER DISPATCHER-PT HAD SUSTAINED VTACH >16 BEATS. PT SLEEPING IN DIALYSIS AT THIS TIME. NOTIFIED COAL SCREENER. PT ASYMPTOMATIC. VSS. DR. AMES & DR. BERNSTEIN AWARE. WILL CONTINUE TO MONITOR.
--- NOTE | 2016-09-01 17:59 | NUR ---
12:45 PM CHEST PAIN NOTIFIED BY SCRIPT COORDINATOR PT EXPERIENCING CP. DR TRUONG IN ROOM AT THIS TIME. VSS & NO DIAPHORESIS. EKG DONE. TROPONIN SENT. CP RESOLVED ON ITS OWN. DR. BERNSTEIN NOTIFIED AT 13:06 PM. WILL CONTINUE TO MONITOR.
[2016-09-01 20:53] LABS: PTT 54 SEC (25-37)
[2016-09-01 23:49] VITALS: BP 130/80
[2016-09-02 04:50] LABS: HEMATOCRIT 34.2 % (42-52); MEAN CORPUSCULAR HGB 29.1 PG (27.0-31.0); MEAN CORPUSCULAR HGB CONC 33.1 G/DL (33.0-37.0); PLATELET COUNT 103 /CUMM (130-400); RBC DISTRIBUTION WIDTH 14.9 % (11.5-14.5); RED BLOOD CELL CT 3.89 /CUMM (4.70-6.10)
[2016-09-02 04:53] LABS: WHITE BLOOD CELL COUNT 15.3 /CUMM (4.8-10.8)
[2016-09-02 04:56] LABS: PT 18.6 SEC (9.4-12.5)
[2016-09-02 05:18] LABS: PTT > 120 SEC (25-37)
[2016-09-02 08:27] VITALS: BP 152/80
--- NOTE | 2016-09-02 09:16 | History & Physical ---
General Information and HPI Source of Information: patient, old records Exam Limitations: no limitations Allergies/Medications Allergies: Coded Allergies: NO KNOWN ALLERGIES (08/23/16) Home Med list Aspirin (Aspirin*) 81 MG TAB.CHEW 81 MG PO DAILY HEART HEALTH (Reported) Metoprolol Tartrate 50 MG TABLET 1 TAB PO DAILY AFIB (Reported) Multivit-Min/FA/Lycopen/Lutein (Centrum Silver Men Tablet) 300 MCG-600 MCG-300 MCG TABLET 1 TAB PO DAILY SUPPLEMENT (Reported) Warfarin Sodium 5 MG TABLET 0.5 TAB PO 1700 BLOOD THINNER (Reported) Please check your INR regularly to keep in between 2-3. Warfarin Sodium 5 MG TABLET 1 TAB PO 1700 BLOOD THINNER (Reported) Please check your INR regularly to keep it in between 2-3. Past History Travel History Traveled to [place] past 21 day No Medical History Blood Transfusion Hx: Yes Neurological: NONE EENT: NONE Cardiovascular: AFIB, hypertension, RUPTURED VARICOSE VEIN Respiratory: NONE Gastrointestinal: HEMMORHOIDS Hepatic: NONE Renal: NONE Musculoskeletal: NONE Psychiatric: NONE Endocrine: NONE Blood Disorders: NONE Cancer(s): NONE JIGMAN/Reproductive: NONE History of MRSA: No History of VRE: No History of CDIFF: No Isolation History: Standard Tetanus Vaccine: 07/21/11 Surgical History Surgical History: cholecystectomy, angioplasty Past Family/Social History Psychosocial History Who Do You Live With? child Services at Home: None Primary Language: Austrian Smoking Status: Never Smoked ETOH Use: occasional use Illicit Drug Use: denies illicit drug use Functional Ability ADLs Independent: dressing, eating, toileting, bathing. Ambulation: independent IADLs Independent: shopping, housework, finances, food prep, telephone, transportation , medication admin. Employment History Employment Employed (Works with [employer]) Exam & Diagnostic Data Diagnostic Data EKG Results Tracing was personally reviewed and shows atrial fibrillation at 112 bpm with left bundle-branch block CXR Results Cardiomegaly without pulmonary edema. Small pleural effusions. Right basilar atelectasis. DICTATED BY: JAGUAR THORNTON MD DATE/TIME DICTATED:08/28/167 Other Results Renal US IMPRESSION: No definite evidence to suggest medical renal disease. No evidence of hydronephrosis.. Outpatient echocardiogram from November 2015 showed moderate LV dysfunction with an EF of 35-40% Core Measures/Miscellaneous Cerebrovascular Accident CVA/TIA Diagnosis: No Severe Sepsis Severe Sepsis Present: No Septic Shock Septic Shock Present: No Miscellaneous Documentation Patient sees these Specialists vascular Level of Patient Care: General Medicine Consults Needed: Consulting Specialty: Hematology/Oncology
--- NOTE | 2016-09-02 09:17 | PN- Housestaff ---
GILBERT BERNSTEIN 09/02/16 0917: Subjective Follow-up For: Rash Acute renal failure Hyperkalemia Atrial fibrillation HFrEF Tele-Events Since Last Visit: A. fib-100s Subjective: Seen and examined patient, states that he is feeling a little better, is willing to try to eat more today. Continues to feel weak denies shortness of breath, fever, chills. Review of Systems Constitutional: Denies: chills, diaphoresis, fever, malaise, weakness, unexplained weight loss. Cardiovascular: Denies: chest pain, edema, orthopena, palpitations, peripheral edema, syncope. Respiratory: Denies: cough, hemoptysis, orthopnea, short of breath, sputum production, stridor, wheezing. Objective Last 24 Hrs of Vital Signs/I&O Vital Signs Date Time Temp Pulse Resp B/P Pulse O2 O2 Flow FiO2 Ox Delivery Rate 09/02 1016 152/80 09/02 0912 96 Room Air Room Air 09/02 0827 97.3 92 18 152/80 96 Room Air 09/02 0800 Room Air 09/02 0000 96 09/01 2349 97.8 90 18 130/80 95 Room Air 09/01 2125 95 Room Air 09/01 1545 97.0 97 18 132/82 98 Room Air Intake & Output 09/02 1600 09/02 0800 09/02 0000 Intake Total 600 284 198 Output Total 100 150 275 Balance 500 134 -77 Intake, IV 284 78 Intake, Oral 600 120 Number 1 Bowel Movements Output, Urine 100 150 275 Patient 230 lb Weight Physical Exam General Appearance: Alert, Oriented X3, Cooperative, No Acute Distress Cardiovascular: Normal S1, Normal S2, irregularly irregular Lungs: Clear to Auscultation, Normal Air Movement Abdomen: distended Extremities: venous stasis changes, decreased pedal edema, right lower leg ulcer Current Medications: Current Medications Sig/Dagoberto Start time Last Medication Dose Route Stop Time Status Admin Acetaminophen 650 MG Q6P PRN 08/23 2345 AC 08/30 PO 2203 Albuterol Sulfate 3 ML Q4P PRN 08/30 1645 AC 09/02 INH 0912 Benzocaine/Menthol 1 SUKH Q4P PRN 08/31 1100 AC PO Benzonatate 100 MG TID PRN 09/02 0845 CAN PO Benzonatate 100 MG TID PRN 08/25 1115 AC 08/30 PO 1652 Bisacodyl 5 MG DAILY 08/27 1358 AC 09/02 PO 1016 Cholecalciferol 1,000 IU DAILY 08/29 1046 AC 09/02 PO 1016 Folic Acid 1 MG DAILY 08/24 1000 AC 09/02 PO 1016 Guaifenesin 10 ML Q6P PRN 08/26 1530 AC 09/02 PO 1015 Heparin Sodium 4,200 UNIT ONCE ONE 09/01 2230 DC 09/01 (Porcine) IV 09/01 2230 2222 Heparin Sodium 5,000 UNIT .STK-MED ONE 09/01 2139 DC (Porcine) IV 09/01 2140 Heparin Sodium 25,000 UNIT Q24H 09/01 1315 AC 09/01 (Porcine) IV 1445 Sodium Chloride 500 ML Metoprolol Succinate 100 MG DAILY 09/03 1000 CAN PO Metoprolol Succinate 50 MG DAILY 09/02 1400 AC PO Metoprolol Succinate 50 MG DAILY 08/30 1000 DC 09/02 PO 1016 Multivitamins 1 TAB DAILY 08/24 1000 AC 09/02 PO 1016 Omeprazole 40 MG DAILY AC 08/29 1045 AC 09/02 PO 1016 Patient Medication 1 UNIT 1000 09/03 1000 Teaching ED 09/03 1001 Phenol 2 SPRAY Q2P PRN 08/30 0900 AC 09/02 EXT 1016 Phytonadione 10 MG DAILY 09/02 1000 DC 09/02 PO 1016 Polyethylene Glycol 17 GM DAILY 08/27 1358 AC 09/02 PO 1015 Prednisone 60 MG DAILY 09/01 1000 AC 09/02 PO 1016 Thiamine HCl 100 MG DAILY 08/24 1000 AC 09/02 PO 1016 Last 24 Hrs of Lab/Hemal Results Last 24 Hrs of Labs/Mics: Laboratory Tests 09/02/16 1425: APTT 63 H 09/02/16 0545: Anion Gap 14, Estimated GFR 10 L, BUN/Creatinine Ratio 15.9, Magnesium 2.7 H 09/02/16 0435: PT 18.6 H, INR 1.78 H 09/02/16 0435: APTT > 120 *H, CBC w Diff MAN DIFF ORDERED, RBC 3.89 L, MCV 88.0, MCH 29.1, RDW 14.9 H, MPV 8.0, Segmented Neutrophils 91 H, Lymphocytes 3 L, Monocytes 6, Nucleated RBCs 1 H, Platelet Estimate ADEQUATE, Polychromasia 1+, Poikilocytosis 1+, Ovalocytes 1+, PUBS MCHC 33.1, Fld Total RBCs Counted 100 09/01/161999: Troponin I 0.02, APTT 54 H Assessment/Plan Assessment: 71-year-old gentleman with past medical history significant for atrial fibrillation on Coumadin, hypertension, CAD status post stents, recently admitted 3 weeks ago after significant bleeding from varicose vein requiring 2 units transfusion with current admission for worsening lower right leg pain and acute development of diffusely spreading petechial rash. Admitted to the general medicine floor with the following investigations were done: Fibrinogen activity 417, Fibrinogen products greater than 10, d-dimer 1789 Hepatitis panel negative, HIV nonreactive, antinuclear antibody negative, MARTIN and complement levels are normal, ESR was 36, c and p ANCA negative C-reactive protein 5.9. Venous Doppler negative for any deep vein thrombosis. Was transferred to the telemetry floor on 08/29/16 as his Coumadin and aspirin was going to be held in anticipation of renal biopsy and to monitor for any arrhythmias. States today that his hemoptysis was not as frequent as yesterday. Had a three beat VT overnight and has an epsiode NSVT during dialysis, he was asymptomatic and hemodynamically stable. 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 * Normal kampa/ lambda light chain ratio, myeloperoxidase antibody negative * Pulm on board * on 60mg PO prednisone daily acute renal failure with hyperkalemia * HSP vs cardiorenal * Potassium levels 5.1 today, * Status post Raul cath Placement, site looks clean no signs of infection * Cr of 5.4 , will have dialysis tomorrow and then on September 13 * renal biopsy possibly on Monday pending INR of less than 1.3. If INR is less than 1.3 on Monday then his IV heparin is to be stopped 6 hours (2:30 AM) prior to renal biopsy, will touch base with IR at that time to see when patient is scheduled on Monday. If INR is more than 1.7 on Monday then he will need to be given 2 units of FFP's. WILL NEED TO TYPE AND SCREEN ON MONDAY * Nephrology on board appreciate recommendations * continue renal dialysis diet Right lower extremity ulcer * Wound on board. Atrial fibrillation/HFrEF * Coumadin and aspirin discontinued secondary to hemoptysis as well as in anticipation of renal biopsy possibly on * Cardiology on board, Echo shows reduced EF of 25%, in November 2015 EF was approx 45% * CHADVASc score now 4 putting him at mod-high risk for stroke, on IV heparin, will be held on Monday midnight in anticipation of renal biopsy on Monday * Will resume his aspirin as soon as possible after his renal biopsy * INR 1.78, dosed 10mg of PO vit K today, target INR of <1.1. Do not give anymore vitamin K * Troponins have remained negative Hypertension * Toprol XL 50mg increased to 100 mg daily, pulmon is ok with the increase in dose, advised statin - was not started by previous team as they wanted to minimize introducing new drugs prior to r/o drug induced cause CAD status post stents * Off aspirin DVT prophylaxis * IV heparin CODE STATUS * DNR/DNI Problem List: 1. Acute kidney injury 2. Atrial fibrillation 3. Petechial rash Pain Ratin Pain Location: na Pain Goal: Pain 4 or less Pain Plan: current regimen Tomorrow's Labs & Rationales: cbc/bep/mag Consulting Request: Consulting Specialty: Hematology/Oncology MANOLO AMES MD 09/02/16 1405: Attending MD Review Statement Attending Statement Attending MD Statement: examined this patient, discuss w/resident/PA/TORPEDO WORKER, agreed w/resident/PA/TORPEDO WORKER, reviewed EMR data (avail), discussed with nursing, discussed with case mgmt, reviewed images Attending Assessment/Plan: Pt feels tired and worn out but overall he feels better. He has had 3 dialysis so far and the plan is dialysis again tomorrow. The metoprolol dose is going to be increased given the systolic heart failure with runs of nonsustained VT. He is going to continue with IV heparin for a high chads score with A. fib. The plan is the heparin is going to be stopped 6 hours before the planned renal biopsy on Monday. 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
--- NOTE | 2016-09-02 09:18 | PN- Housestaff ---
Assessment/Plan Assessment: 71-year-old gentleman with past medical history significant for atrial fibrillation on Coumadin, hypertension, CAD status post stents, recently admitted 3 weeks ago after significant bleeding from varicose vein requiring 2 units transfusion with current admission for worsening lower right leg pain and acute development of diffusely spreading petechial rash. Admitted to the general medicine floor with the following investigations were done: Fibrinogen activity 417, Fibrinogen products greater than 10, d-dimer 1789 Hepatitis panel negative, HIV nonreactive, antinuclear antibody negative, MARTIN and complement levels are normal, ESR was 36, c and p ANCA negative C-reactive protein 5.9. Venous Doppler negative for any deep vein thrombosis. Was transferred to the telemetry floor on 08/29/16 as his Coumadin and aspirin was going to be held in anticipation of renal biopsy and to monitor for any arrhythmias. States today that his hemoptysis was not as frequent as yesterday. Had a three beat VT overnight and has an epsiode NSVT during dialysis, he was asymptomatic and hemodynamically stable. 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 * Normal kampa/ lambda light chain ratio, myeloperoxidase antibody negative * Pulm on board * will be started on 60mg PO prednisone today acute renal failure with hyperkalemia * HSP vs cardiorenal * Potassium levels 5.1 today, * Status post Raul cath Placement, site looks clean no signs of infection * Cr of 6.1 today * renal biopsy possibly on monday, nephrology on board appreciate recommendations * continue renal dialysis diet Right lower extremity ulcer * Wound on board. Atrial fibrillation/HFrEF * Coumadin and aspirin discontinued secondary to hemoptysis as well as in anticipation of renal biopsy possibly on * Cardiology on board, Echo shows reduced EF of 25%, in November 2015 EF was approx 45% * CHADVASc score now 4 putting him at mod-high risk for stroke, will be started on IV heparin, will be held on Monday midnight in anticipation of renal biopsy on Monday * Will resume his aspirin as soon as possible after his renal biopsy * INR 1.87, will be dosed 10mg of PO vit K today, target INR of <1.1. Dose vit K as needed to achieve target INR. * will trend troponin Hypertension * continue Toprol XL 50mg, advised statin - was not started by previous team as they wanted to minimize introducing new drugs prior to r/o drug induced cause CAD status post stents * Off aspirin DVT prophylaxis * Patient is currently not on any DVT prophylaxis as he is off AC in anticipation renal biopsy, mechanical Alps is contraindicated as he has +2 bilateral pedal edema along with venous stasis ulcer. CODE STATUS * DNR/DNI Consulting Request: Consulting Specialty: Hematology/Oncology
--- NOTE | 2016-09-02 12:16 | PN- Nephrology ---
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 I think that his rapid rise in SCr was most likely 2/2 a GN although granular casts on UA with newly depressed LVEF do suggest that there may have been another etiology. He has received pulse dose steroids. He was started on dialysis on Monday. He needs a renal biopsy but his INR remains elevated. He has gotten a lot of Vitamin K and should not receive any more - he should get FFP if his INR remains >1.4 on Monday. He was started on IV heparin which needs to be stopped 6 hours prior to biopsy and should not be restarted for 48hrs. Based on his serologic labs, there is no clear indication for pheresis at this time. Suggestion: -Cont on 60mg PO prednisone daily -f/u cryoglobulin -Dialysis tomorrow (will need to decide after this whether next dialysis would be Monday or Monday) -Continue to hold aspirin -Tentative plan for renal biopsy on Monday -Would give FFP on Monday if INR remains >1.4 -Hold IV heparin 6 hours prior to biopsy -No Heparin or ASA for 48hrs after biopsy Please call [phone] with ?'s Subjective Subjective: Has gotten dialysis 3 days in a row Feels much better INR 1.78 Runs of NSVT Objective Vital Signs and I&Os Vital Signs Date Time Temp Pulse Resp B/P Pulse O2 O2 Flow FiO2 Ox Delivery Rate 09/02 1016 152/80 09/02 0912 96 Room Air Room Air 09/02 0827 97.3 92 18 152/80 96 Room Air 09/02 0800 Room Air 09/02 0000 96 09/01 2349 97.8 90 18 130/80 95 Room Air 09/01 2125 95 Room Air 09/01 1545 97.0 97 18 132/82 98 Room Air 09/01 1417 101 140/82 Intake & Output 09/02 1600 09/02 0400 09/01 1600 09/01 0400 08/31 1600 08/31 0400 Intake Total 284 198 769 258 6780 Output Total 150 275 687 904 7114 Balance 134 -77 260 520 110 Intake, IV 284 78 550 1000 Intake, Oral 120 960 120 360 Number 2 Bowel Movements Output, 1000 Dialysate Output, Urine 150 275 700 150 250 Patient 230 lb 234 lb 245 lb 239 lb Weight Physical Exam: Gen - much improved appearance HEENT - supple CV - irregularly irregular rate/rhythm Chest - scant crackles at L base with significant upper airway sounds Abd - soft, nontender Skin - rash continues to be more confluent Ext - 1+ edema Neuro - AOX3 Current Medications: Current Medications Sig/Dagoberto Start time Last Medication Dose Route Stop Time Status Admin Acetaminophen 650 MG Q6P PRN 08/23 2345 AC 08/30 PO 2203 Albuterol Sulfate 3 ML Q4P PRN 08/30 1645 AC 09/02 INH 0912 Benzocaine/Menthol 1 SUKH Q4P PRN 08/31 1100 AC PO Benzonatate 100 MG TID PRN 09/02 0845 CAN PO Benzonatate 100 MG TID PRN 08/25 1115 AC 08/30 PO 1652 Bisacodyl 5 MG DAILY 08/27 1358 AC 09/02 PO 1016 Cholecalciferol 1,000 IU DAILY 08/29 1046 AC 09/02 PO 1016 Folic Acid 1 MG DAILY 08/24 1000 AC 09/02 PO 1016 Guaifenesin 10 ML Q6P PRN 08/26 1530 AC 09/02 PO 1015 Heparin Sodium 4,200 UNIT ONCE ONE 09/01 2230 DC 09/01 (Porcine) IV 09/01 2231 2222 Heparin Sodium 5,000 UNIT .STK-MED ONE 09/01 2139 DC (Porcine) IV 09/01 2140 Heparin Sodium 25,000 UNIT Q24H 09/01 1315 AC 09/01 (Porcine) IV 1445 Sodium Chloride 500 ML Heparin Sodium/ 25,000 UNIT Q24H 09/01 1000 DC Dextrose IV Dextrose/Water 500 ML Metoprolol Succinate 50 MG DAILY 08/30 1000 AC 09/02 PO 1016 Multivitamins 1 TAB DAILY 08/24 1000 AC 09/02 PO 1016 Omeprazole 40 MG DAILY AC 08/29 1045 AC 09/02 PO 1016 Patient Medication 1 ED .STK-MED ONE 09/01 1352 DC Teaching ED 09/01 1353 Phenol 2 SPRAY Q2P PRN 08/30 0900 AC 09/02 EXT 1016 Phytonadione 10 MG DAILY 09/02 1000 DC 09/02 PO 1016 Polyethylene Glycol 17 GM DAILY 08/27 1358 AC 09/02 PO 1015 Prednisone 60 MG DAILY 09/01 1000 AC 09/02 PO 1016 Thiamine HCl 100 MG DAILY 08/24 1000 AC 09/02 PO 1016 Results Pertinent Lab Results: Laboratory Tests 09/02 09/02 09/02 09/01 0545 0435 6913 1999 Chemistry Sodium (137 - 145 mmol/L) 137 Potassium (3.5 - 5.1 mmol/L) 4.9 Chloride (98 - 107 mmol/L) 100 Carbon Dioxide (22 - 30 mmol/L) 23 Anion Gap (5 - 16) 14 BUN (9 - 20 mg/dL) 86 H Creatinine (0.7 - 1.2 mg/dL) 5.4 *H Estimated GFR (>60 ml/min) 10 L BUN/Creatinine Ratio (7 - 25 %) 15.9 Magnesium (1.6 - 2.3 mg/dL) 2.7 H Troponin I (<0.11 ng/ml) 0.02 Coagulation PT (9.4 - 12.5 SEC) 18.6 H INR (0.90 - 1.17) 1.78 H APTT (25 - 37 SEC) > 120 *H 54 H Hematology CBC w Diff MAN DIFF ORDERED WBC (4.8 - 10.8 /CUMM) 15.3 H RBC (4.70 - 6.10 /CUMM) 3.89 L Hgb (14.0 - 18.0 G/DL) 11.3 L Hct (42 - 52 %) 34.2 L MCV (80.0 - 94.0 FL) 88.0 MCH (27.0 - 31.0 PG) 29.1 RDW (11.5 - 14.5 %) 14.9 H Plt Count (130 - 400 /CUMM) 103 L MPV (7.4 - 10.4 FL) 8.0 Segmented Neutrophils (42.2 - 75.2 %) 91 H Lymphocytes (20.5 - 51.1 %) 3 L Monocytes (1.7 - 9.3 %) 6 Nucleated RBCs (0.0 - 0.0 /100WBC) 1 H Platelet Estimate (ADEQUATE) ADEQUATE Polychromasia 1+ Poikilocytosis 1+ Ovalocytes 1+ PUBS MCHC (33.0 - 37.0 G/DL) 33.1 Other Body Source Fld Total RBCs Counted (%) 100 09/01 09/01 1300 0611 Chemistry Sodium (137 - 145 mmol/L) 135 L Potassium (3.5 - 5.1 mmol/L) 5.1 Chloride (98 - 107 mmol/L) 104 Carbon Dioxide (22 - 30 mmol/L) 19 L Anion Gap (5 - 16) 12 BUN (9 - 20 mg/dL) 91 H Creatinine (0.7 - 1.2 mg/dL) 6.1 *H Estimated GFR (>60 ml/min) 9 L BUN/Creatinine Ratio (7 - 25 %) 14.9 Phosphorus (2.5 - 4.5 mg/dL) 8.0 H Magnesium (1.6 - 2.3 mg/dL) 2.7 H Troponin I (<0.11 ng/ml) 0.03 0.03 Coagulation PT (9.4 - 12.5 SEC) 19.5 H INR (0.90 - 1.17) 1.87 H Hematology CBC w Diff NO MAN DIFF REQ WBC (4.8 - 10.8 /CUMM) 10.1 RBC (4.70 - 6.10 /CUMM) 3.85 L Hgb (14.0 - 18.0 G/DL) 11.3 L Hct (42 - 52 %) 34.0 L MCV (80.0 - 94.0 FL) 88.5 MCH (27.0 - 31.0 PG) 29.3 RDW (11.5 - 14.5 %) 14.8 H Plt Count (130 - 400 /CUMM) 130 MPV (7.4 - 10.4 FL) 7.9 Gran % (42.2 - 75.2 %) 89.9 H Lymphocytes % (20.5 - 51.1 %) 4.3 L Monocytes % (1.7 - 9.3 %) 5.7 Eosinophils % (0 - 5 %) 0 Basophils % (0.0 - 2.0 %) 0.1 Absolute Granulocytes (1.4 - 6.5 /CUMM) 9.0 H Absolute Lymphocytes (1.2 - 3.4 /CUMM) 0.4 L Absolute Monocytes (0.10 - 0.60 /CUMM) 0.6 Absolute Eosinophils (0.0 - 0.7 /CUMM) 0 Absolute Basophils (0.0 - 0.2 /CUMM) 0 PUBS MCHC (33.0 - 37.0 G/DL) 33.1 03/08 0655 Chemistry Sodium (137 - 145 mmol/L) 135 L Potassium (3.5 - 5.1 mmol/L) 5.5 H Chloride (98 - 107 mmol/L) 101 Carbon Dioxide (22 - 30 mmol/L) 17 L Anion Gap (5 - 16) 17 H BUN (9 - 20 mg/dL) 117 *H Creatinine (0.7 - 1.2 mg/dL) 7.4 *H Estimated GFR (>60 ml/min) 7 L BUN/Creatinine Ratio (7 - 25 %) 15.8 Magnesium (1.6 - 2.3 mg/dL) 2.9 H Coagulation PT (9.4 - 12.5 SEC) 18.8 H INR (0.90 - 1.17) 1.80 H Hematology CBC w Diff NO MAN DIFF REQ WBC (4.8 - 10.8 /CUMM) 11.3 H RBC (4.70 - 6.10 /CUMM) 4.08 L Hgb (14.0 - 18.0 G/DL) 12.1 L Hct (42 - 52 %) 35.9 L MCV (80.0 - 94.0 FL) 88.0 MCH (27.0 - 31.0 PG) 29.7 RDW (11.5 - 14.5 %) 14.6 H Plt Count (130 - 400 /CUMM) 162 MPV (7.4 - 10.4 FL) 7.9 Gran % (42.2 - 75.2 %) 88.7 H Lymphocytes % (20.5 - 51.1 %) 5.7 L Monocytes % (1.7 - 9.3 %) 5.5 Eosinophils % (0 - 5 %) 0 Basophils % (0.0 - 2.0 %) 0.1 Absolute Granulocytes (1.4 - 6.5 /CUMM) 10.0 H Absolute Lymphocytes (1.2 - 3.4 /CUMM) 0.6 L Absolute Monocytes (0.10 - 0.60 /CUMM) 0.6 Absolute Eosinophils (0.0 - 0.7 /CUMM) 0 Absolute Basophils (0.0 - 0.2 /CUMM) 0 PUBS MCHC (33.0 - 37.0 G/DL) 33.7 Imaging/Other Studies: TTE 08/30 CONCLUSIONS Mildly dilated LV chamber size, with normal wall thickness. The estimated LVEF is 20%. There is severe global hypokinesis and septal akinesis. Mildly calcified mitral valvular leaflets and annulus. There is adequate leaflet opening. There is at least moderate mitral regurgitation. There is mild aortic insufficiency. There is moderate tricuspid regurgitation. There is pulmonary hypertension with an estimated PA systolic pressure of 46 mmHg. Renal U/S 08/28 EXAM TYPE: US - US-RENAL/KIDNEY EXAMINATION: US RETROPERITONEAL COMPLETE (RENAL) CLINICAL INFORMATION: Worsening renal function.. COMPARISON: CT of April 10, 2009 TECHNIQUE: Real-time imaging of the kidneys and bladder. FINDINGS: Limited due to large body habitus. RIGHT KIDNEY: 11.4 x 8.0 x 5.5 cm (SAG x AP x TRV). The kidney is normal in size, contour, and echogenicity. Renal cortical thickness is normal. No calculi or focal parenchymal lesions. No hydronephrosis. LEFT KIDNEY: 12.4 x 6.5 x 5.7 cm (SAG x AP x TRV). The kidney is normal in size, contour, and echogenicity. Renal cortical thickness is normal. No calculi or focal parenchymal lesions. No hydronephrosis. BLADDER: Empty and not evaluated. Ureteral jets were not identified during study without the bladder. Prostate gland measures approximately 4.3 x 4.3 x 4.8 cm in size. IMPRESSION: No definite evidence to suggest medical renal disease. No evidence of hydronephrosis..
[2016-09-02 15:00] LABS: PTT 63 SEC (25-37)
[2016-09-02 15:49] VITALS: BP 132/74
--- NOTE | 2016-09-02 16:34 | PN- Cardiology ---
Subjective Subjective: Patient seen earlier today and discussed with the medical team at length. Mild fatigue. Denies chest pain or dyspnea. Still has a cough. Had NSVT on telemetry but denied associated palpitations. Objective Vital Signs and I&Os Vital Signs Date Time Temp Pulse Resp B/P Pulse O2 O2 Flow FiO2 Ox Delivery Rate 09/02 1549 97.4 80 18 132/74 96 Room Air 09/02 1016 152/80 09/02 0912 96 Room Air Room Air 09/02 0827 97.3 92 18 152/80 96 Room Air 09/02 0800 Room Air 09/02 0000 96 09/01 2349 97.8 90 18 130/80 95 Room Air 09/01 2125 95 Room Air Intake & Output 09/02 1600 09/02 0800 09/02 0000 09/01 1600 09/01 0809/01 0000 Intake Total 600 284 198 480 480 670 Output Total 100 150 275 500 200 150 Balance 500 134 -77 -20 280 520 Intake, IV 284 78 550 Intake, Oral 600 120 480 480 120 Number 1 Bowel Movements Output, Urine 100 150 275 500 200 150 Patient 230 lb 234 lb Weight Physical Exam: General: no apparent distress. Alert. Laying flat. Eyes: No obvious scleral icterus. HEENT: No jugular venous distention or abnormal jugular venous pulsations. Cardiovascular: Normal intensity S1/S2. Irregular. Respiratory: Mildly decreased air entry at the bases Abdomen: Soft, nontender with no guarding or rebound tenderness. Musculoskeletal: No clubbing or cyanosis noted, trace LE edema bilaterally Skin: Petechial rash improving Neurologic: No gross focal deficits noted. Current Medications: Current Medications Sig/Dagoberto Start time Last Medication Dose Route Stop Time Status Admin Acetaminophen 650 MG Q6P PRN 08/23 2345 AC 08/30 PO 2203 Albuterol Sulfate 3 ML Q4P PRN 08/30 1645 AC 09/02 INH 0912 Benzocaine/Menthol 1 SUKH Q4P PRN 08/31 1100 AC PO Benzonatate 100 MG TID PRN 09/02 0845 CAN PO Benzonatate 100 MG TID PRN 08/25 1115 AC 08/30 PO 1652 Bisacodyl 5 MG DAILY 08/27 1358 AC 09/02 PO 1016 Cholecalciferol 1,000 IU DAILY 08/29 1046 AC 09/02 PO 1016 Folic Acid 1 MG DAILY 08/24 1000 AC 09/02 PO 1016 Guaifenesin 10 ML Q6P PRN 08/26 1530 AC 09/02 PO 1015 Heparin Sodium 4,200 UNIT ONCE ONE 09/01 2230 DC 09/01 (Porcine) IV 09/01 Heparin Sodium 5,000 UNIT .STK-MED ONE 09/01 2139 DC (Porcine) IV 09/01 2140 Heparin Sodium 25,000 UNIT Q24H 09/01 1315 AC 09/01 (Porcine) IV 1445 Sodium Chloride 500 ML Metoprolol Succinate 100 MG DAILY 09/03 1000 CAN PO Metoprolol Succinate 50 MG DAILY 09/02 1400 AC PO Metoprolol Succinate 50 MG DAILY 08/30 1000 DC 09/02 PO 1016 Multivitamins 1 TAB DAILY 08/24 1000 AC 09/02 PO 1016 Omeprazole 40 MG DAILY AC 08/29 1045 AC 09/02 PO 1016 Patient Medication 1 UNIT 1000 09/03 1000 AC Teaching ED 09/03 1001 Phenol 2 SPRAY Q2P PRN 08/30 0900 AC 09/02 EXT 1016 Phytonadione 10 MG DAILY 09/02 1000 DC 09/02 PO 1016 Polyethylene Glycol 17 GM DAILY 08/27 1358 AC 09/02 PO 1015 Prednisone 60 MG DAILY 09/01 1000 AC 09/02 PO 1016 Thiamine HCl 100 MG DAILY 08/24 1000 AC 09/02 PO 1016 Results Last 48 Hrs of Labs/Mics: Laboratory Tests 09/02/16 1425: APTT 63 H 09/02/16 0545: Anion Gap 14, Estimated GFR 10 L, BUN/Creatinine Ratio 15.9, Magnesium 2.7 H 09/02/16 0435: PT 18.6 H, INR 1.78 H 09/02/16 0435: APTT > 120 *H, CBC w Diff MAN DIFF ORDERED, RBC 3.89 L, MCV 88.0, MCH 29.1, RDW 14.9 H, MPV 8.0, Segmented Neutrophils 91 H, Lymphocytes 3 L, Monocytes 6, Nucleated RBCs 1 H, Platelet Estimate ADEQUATE, Polychromasia 1+, Poikilocytosis 1+, Ovalocytes 1+, PUBS MCHC 33.1, Fld Total RBCs Counted 100 09/01/16 2000: Troponin I 0.02, APTT 54 H 09/01/16 1300: Troponin I 0.03 09/01/16 0611: Anion Gap 12, Estimated GFR 9 L, BUN/Creatinine Ratio 14.9, Phosphorus 8.0 H, Magnesium 2.7 H, Troponin I 0.03, PT 19.5 H, INR 1.87 H, CBC w Diff NO MAN DIFF REQ, RBC 3.85 L, MCV 88.5, MCH 29.3, RDW 14.8 H, MPV 7.9, Gran % 89.9 H, Lymphocytes % 4.3 L, Monocytes % 5.7, Eosinophils % 0, Basophils % 0.1, Absolute Granulocytes 9.0 H, Absolute Lymphocytes 0.4 L, Absolute Monocytes 0.6, Absolute Eosinophils 0, Absolute Basophils 0, PUBS MCHC 33.1 Recent Imaging Studies: Telemetry tracings personally reviewed, shows atrial fibrillation with LBBB and runs of wide complex tachycardia, non-sustained Echo: Mildly dilated LV chamber size, with normal wall thickness. The estimated LVEF is 20%. There is severe global hypokinesis and septal akinesis. Mildly calcified mitral valvular leaflets and annulus. There is adequate leaflet opening. There is at least moderate mitral regurgitation. There is mild aortic insufficiency. There is moderate tricuspid regurgitation. There is pulmonary hypertension with an estimated PA systolic pressure of 46 mmHg. Estuardo Perez M.D. (Electronically Signed) Final Date: 31 August 2016 12:41 Assessment/Plan Assessment/Plan 1. Progressive renal failure with hyperkalemia with suspicion for glomerulonephritis 2. Persistent atrial fibrillation on anticoagulation with Coumadin on hold 3. History of coronary artery disease/prior myocardial infarction with mild to moderate left ventricular dysfunction by previous noninvasive imaging, now with severe LV dysfunction 4. NSVT on telemetry 5. Small bilateral pleural effusions 6. Chronic left bundle branch block 7. Hx HTN 8. Venous insufficiency Case discussed with the medical team at length this morning. Close review of the wide complex bursts on telemetry is suggestive of NSVT (as opposed to SVT with LBBB despite his known LBBB). Given this finding I recommend increasing the Toprol XL to 100 mg daily. Continue on telemetry without interruption (including for procedures). Continue with IV Heparin bridge, minimize interruption of AC as much as possible given the persistent afib with significantly elevated CHADS- Vasc score. Recommend adding low-dose Lipitor 20 mg by mouth daily when medically cleared. Resume daily ASA when medically cleared. He is at moderate cardiovascular risk for Renal biopsy. Jonh Stanley MD [facility] Continue telemetry? Yes
[2016-09-02 23:52] VITALS: BP 140/84
[2016-09-03 03:16] LABS: PTT 68 SEC (25-37)
--- NOTE | 2016-09-03 07:51 | PN- Housestaff ---
See Addendum Subjective Follow-up For: Rash Acute renal failure Hyperkalemia Atrial fibrillation HFrEF Tele-Events Since Last Visit: Atrial fibrillation HR 74-94 bpm, no overnight events. Subjective: Patient seen and examined while in dialysis this morning. He reports he is more lethargic than yesterday and admits to chills. He denies chest pain, palpitations, or pain. Review of Systems Constitutional: Reports: chills, malaise, weakness. Denies: fever. EENTM: Denies: visual changes, nasal congestion. Cardiovascular: Denies: chest pain, palpitations. Respiratory: Denies: short of breath. Gastrointestinal: Denies: abdominal pain. Genitourinary: Denies: hematuria. Objective Last 24 Hrs of Vital Signs/I&O Vital Signs Date Time Temp Pulse Resp B/P Pulse O2 O2 Flow FiO2 Ox Delivery Rate 09/03 0000 Room Air 09/02 2352 98.1 84 20 140/84 96 Room Air 09/02 1845 88 120/86 09/02 1652 98 Room Air 09/02 1549 97.4 80 18 132/74 96 Room Air Intake & Output 09/03 1600 09/03 0800 09/03 0000 Intake Total 448 344 Output Total 400 300 Balance 48 44 Intake, IV 208 104 Intake, Oral 240 240 Output, Urine 400 300 Patient 232 lb Weight Physical Exam General Appearance: Lethargic, mild pallor, no acute distress. Skin: RLE covered in dry kerlex with evidence of rash as noted on prior doumentation. HEENT: Atraumatic, EOMI Neck: +2 Carotid Pulse wo Bruit Cardiovascular: Normal S1, Normal S2, Irregularly irregular Lungs: Clear to Auscultation, Normal Air Movement Abdomen: Distended Neurological: Normal Speech, Normal Tone Extremities: Venous stasis changes, decreased pedal edema, right lower leg ulcer. Current Medications: Current Medications Sig/Dagoberto Start time Last Medication Dose Route Stop Time Status Admin Acetaminophen 650 MG .STK-MED ONE 09/02 225 DC PO 09/02 225 Acetaminophen 650 MG Q6P PRN 08/23 2345 AC 09/02 PO 2256 Albuterol Sulfate 3 ML Q4P PRN 08/30 1645 AC 09/02 INH 1651 Benzocaine/Menthol 1 SUKH Q4P PRN 08/31 1100 AC PO Benzonatate 100 MG TID PRN 08/25 1115 AC 08/30 PO 1652 Bisacodyl 5 MG DAILY 08/27 1358 AC 09/02 PO 1016 Cholecalciferol 1,000 IU DAILY 08/29 1046 AC 09/02 PO 1016 Folic Acid 1 MG DAILY 08/24 1000 AC 09/02 PO 1016 Guaifenesin 10 ML .STK-MED ONE 09/02 1846 DC PO 09/02 1847 Guaifenesin 10 ML Q6P PRN 08/26 1530 AC 09/03 PO 0549 Heparin Sodium 25,000 UNIT Q24H 09/01 1315 AC 09/01 (Porcine) IV 1445 Sodium Chloride 500 ML Metoprolol Succinate 100 MG DAILY 09/03 1000 CAN PO Metoprolol Succinate 100 MG DAILY 09/03 1000 AC PO Metoprolol Succinate 50 MG DAILY 09/02 1400 DC 09/02 PO 09/02 1401 1845 Metoprolol Succinate 50 MG DAILY 08/30 1000 DC 09/02 PO 1016 Multivitamins 1 TAB DAILY 08/24 1000 AC 09/02 PO 1016 Omeprazole 40 MG DAILY AC 08/29 1045 AC 09/03 PO 0543 Patient Medication 1 UNIT 1000 09/03 1000 DC Teaching ED 09/03 1001 Phenol 2 SPRAY Q2P PRN 08/30 0900 AC 09/03 EXT 0543 Phytonadione 10 MG DAILY 09/02 1000 DC 09/02 PO 1016 Polyethylene Glycol 17 GM DAILY 08/27 1358 AC 09/02 PO 1015 Prednisone 60 MG DAILY 09/01 1000 AC 09/02 PO 1016 Thiamine HCl 100 MG DAILY 08/24 1000 AC 09/02 PO 1016 Last 24 Hrs of Lab/Hemal Results Last 24 Hrs of Labs/Mics: Laboratory Tests 09/03/16 0750: Anion Gap 12, Estimated GFR 10 L, BUN/Creatinine Ratio 19.3, Magnesium 2.5 H, CBC w Diff NO MAN DIFF REQ, RBC 3.89 L, MCV 88.4, MCH 29.0, RDW 15.0 H, MPV 9.0, Gran % 93.1 H, Lymphocytes % 3.6 L, Monocytes % 2.8, Eosinophils % 0.3, Basophils % 0.2, Absolute Granulocytes 18.6 H, Absolute Lymphocytes 0.7 L, Absolute Monocytes 0.6, Absolute Eosinophils 0.1, Absolute Basophils 0, PUBS MCHC 32.8 L 09/03/16 0255: APTT 68 H 09/02/16 1425: APTT 63 H Assessment/Plan Assessment: 71-year-old gentleman with past medical history significant for atrial fibrillation on Coumadin, hypertension, CAD status post stents, recently admitted 3 weeks ago after significant bleeding from varicose vein requiring 2 units transfusion with current admission for worsening lower right leg pain and acute development of diffusely spreading petechial rash. Admitted to the general medicine floor with the following investigations were done: Fibrinogen activity 417, Fibrinogen products greater than 10, d-dimer 1789 Hepatitis panel negative, HIV nonreactive, antinuclear antibody negative, MARTIN and complement levels are normal, ESR was 36, c and p ANCA negative C-reactive protein 5.9. Venous Doppler negative for any deep vein thrombosis. Was transferred to the telemetry floor on 08/29/16 as his Coumadin and aspirin was going to be held in anticipation of renal biopsy and to monitor for any arrhythmias. States today that his hemoptysis was not as frequent as yesterday. Had a three beat VT 09/01/16 overnight and had an epsiode NSVT during dialysis, he was asymptomatic and hemodynamically stable. 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 * Normal kampa/ lambda light chain ratio, myeloperoxidase antibody negative. * Pulm on board * On 60mg PO prednisone daily Acute renal failure with hyperkalemia * HSP vs cardiorenal * Potassium levels 4.78 today * Status post Raul cath Placement, site looks clean no signs of infection * Cr of 5.7 pre-dialysis today, randee proceed with dialysis this AM and then on September 13 * Renal biopsy possibly on Monday pending INR of less than 1.3. If INR is less than 1.3 on Monday then his IV heparin is to be stopped 6 hours (2:30 AM) prior to renal biopsy, will touch base with IR at that time to see when patient is scheduled on Monday. If INR is more than 1.7 on Monday then he will need to be given 2 units of FFP's. WILL NEED TO TYPE AND SCREEN ON MONDAY. * Nephrology on board appreciate recommendations. * Continue renal dialysis diet. Right lower extremity ulcer (chronic venous stasis ulcer * Wound on board, continue to follow their rec's * Xeroform and leg elevation above his heart * Akbar applied from feet to popliteal fossa Atrial fibrillation/HFrEF with episode of NSVT * Coumadin and aspirin discontinued secondary to hemoptysis as well as in anticipation of renal biopsy early next week. * Cardiology on board, echo shows reduced EF of 25%, in November 2015 EF was approx 45% * Topriol XL increased to 100 mg PO daily yesterday due to episode of NSVT, continue to monitor for NSVT. * Lipitor 20 mg PO daily should be added when medically cleared * CHADVASc score is 4 putting him at mod-high risk for stroke, on IV heparin, will be held on Monday midnight in anticipation of renal biopsy on Monday. * Will resume his aspirin as soon as possible after his renal biopsy. * INR 1.78, dosed 10mg of PO vit K yesterday, target INR of <1.1. Do not give anymore vitamin K today. * Troponins have remained negative. Hypertension * Toprol XL 50mg increased to 100 mg daily, pulmonology is ok with the increase in dose CAD status post stents * Off aspirin DVT prophylaxis * IV heparin CODE STATUS * DNR/DNI Problem List: 1. HFrEF (heart failure with reduced ejection fraction) 2. Glomerulonephritis 3. Petechial rash 4. Acute kidney injury 5. Atrial fibrillation Pain Ratin Pain Location: n/a Pain Goal: Remain pain free Pain Plan: Per pain pathway Tomorrow's Labs & Rationales: CBC (increasing WBC, thrombocytopenia), BEP (post dialysis) Consulting Request: Consulting Specialty: Hematology/Oncology
[2016-09-03 10:05] LABS: ABSOLUTE BASOPHIL COUNT 0 /CUMM (0.0-0.2); ABSOLUTE EOSINOPHIL COUNT 0.1 /CUMM (0.0-0.7); ABSOLUTE GRANULOCYTE CT 18.6 /CUMM (1.4-6.5); ABSOLUTE LYMPH COUNT 0.7 /CUMM (1.2-3.4); ABSOLUTE MONOCYTE COUNT 0.6 /CUMM (0.10-0.60); BASOPHIL % 0.2 % (0.0-2.0); EOSINOPHIL % 0.3 % (0-5); HEMATOCRIT 34.4 % (42-52); MEAN CORPUSCULAR HGB CONC 32.8 G/DL (33.0-37.0); MEAN CORPUSCULAR VOLUME 88.4 FL (80.0-94.0); PLATELET COUNT 82 /CUMM (130-400); RED BLOOD CELL CT 3.89 /CUMM (4.70-6.10)
[2016-09-03 10:27] LABS: GRANULOCYTE % 93.1 % (42.2-75.2)
--- NOTE | 2016-09-03 12:18 | PN- Pulmonary ---
Subjective HPI/Critical Care Issues: The patient is awake and alert. His respiratory status appears stable. He is lethargic but arousable. He has not had significant hemoptysis. Objective Current Medications: Current Medications Sig/Dagoberto Start time Last Medication Dose Route Stop Time Status Admin Acetaminophen 650 MG .STK-MED ONE 09/02 2253 DC PO 09/02 2254 Acetaminophen 650 MG Q6P PRN 08/23 2345 AC 09/02 PO 2256 Albuterol Sulfate 3 ML Q4P PRN 08/30 1645 AC 09/02 INH 1651 Benzocaine/Menthol 1 SUKH Q4P PRN 08/31 1100 AC PO Benzonatate 100 MG TID PRN 08/25 1115 AC 08/30 PO 1652 Bisacodyl 5 MG DAILY 08/27 1358 AC 09/02 PO 1016 Cholecalciferol 1,000 IU DAILY 08/29 1046 AC 09/02 PO 1016 Folic Acid 1 MG DAILY 08/24 1000 AC 09/02 PO 1016 Guaifenesin 10 ML .STK-MED ONE 09/02 1846 DC PO 09/02 1847 Guaifenesin 10 ML Q6P PRN 08/26 1530 AC 09/03 PO 0549 Heparin Sodium 25,000 UNIT Q24H 09/01 1315 AC 09/01 (Porcine) IV 1445 Sodium Chloride 500 ML Metoprolol Succinate 100 MG DAILY 09/03 1000 CAN PO Metoprolol Succinate 100 MG DAILY 09/03 1000 AC PO Metoprolol Succinate 50 MG DAILY 09/02 1400 DC 09/02 PO 09/02 1401 1845 Metoprolol Succinate 50 MG DAILY 08/30 1000 DC 09/02 PO 1016 Multivitamins 1 TAB DAILY 08/24 1000 AC 09/02 PO 1016 Omeprazole 40 MG DAILY AC 08/29 1045 AC 09/03 PO 0543 Patient Medication 1 UNIT 1000 09/03 1000 DC Teaching ED 09/03 1001 Phenol 2 SPRAY Q2P PRN 08/30 0900 AC 09/03 EXT 0543 Polyethylene Glycol 17 GM DAILY 08/27 1358 AC 09/02 PO 1015 Prednisone 60 MG DAILY 09/01 1000 AC 09/02 PO 1016 Thiamine HCl 100 MG DAILY 08/24 1000 AC 09/02 PO 1016 Vital Signs & I&O Last 24 Hrs of Vitals and I&O: Vital Signs Date Time Temp Pulse Resp B/P Pulse O2 O2 Flow FiO2 Ox Delivery Rate 09/03 0000 Room Air 09/02 2352 98.1 84 20 140/84 96 Room Air 09/02 1845 88 120/86 09/02 1652 98 Room Air 09/02 1549 97.4 80 18 132/74 96 Room Air Intake & Output 09/03 1600 09/03 0800 09/03 0000 Intake Total 448 344 Output Total 400 300 Balance 48 44 Intake, IV 208 104 Intake, Oral 240 240 Output, Urine 400 300 Patient 232 lb Weight Physical Exam General Appearance: well developed/nourished, alert, awake Head: atraumatic, normal appearance Neck: normal inspection, supple Respiratory: normal breath sounds, no respiratory distress, lungs clear Cardiovascular: regular rate/rhythm (S1 and S2 heard) Gastrointestinal: normal bowel sounds, soft, non-tender Extremities: right lower extremity ecchymosis with a dressing in place Skin: diffuse petechial rash - improving Results Last 24 Hrs of Lab Results: Laboratory Tests 09/03/16 0750: Anion Gap 12, Estimated GFR 10 L, BUN/Creatinine Ratio 19.3, Magnesium 2.5 H, CBC w Diff NO MAN DIFF REQ, RBC 3.89 L, MCV 88.4, MCH 29.0, RDW 15.0 H, MPV 9.0, Gran % 93.1 H, Lymphocytes % 3.6 L, Monocytes % 2.8, Eosinophils % 0.3, Basophils % 0.2, Absolute Granulocytes 18.6 H, Absolute Lymphocytes 0.7 L, Absolute Monocytes 0.6, Absolute Eosinophils 0.1, Absolute Basophils 0, PUBS MCHC 32.8 L 09/03/16 0255: APTT 68 H 09/02/16 1425: APTT 63 H Impression/Plan Impression/Plan Impression/Plan: 1. Hemoptysis - no evidence of pulmonary hemorrhage. 2. Minimal nonspecific ground glass opacities, atelectasis. No evidence of ILD. 3. Nonspecific lung nodules which will need ongoing follow up in 3-6 months. 4. Progressive renal failure, on pulse dose steroids and dialysis, needs renal biopsy. 5. Extensive petechial rash - improving, possible IgAV. Recommendations: * Continue to monitor for gross hemoptysis. Call pulmonary if significant bleeding. * Continue multivitamin, thiamine and folate. * TRC for nebulizer treatments as needed. * Renal failure management/dialysis per nephrology. * The patient's respiratory status is stable. I will sign off. Please call if any questions or if there is any deterioration in the patient's respiratory status. Thank you for allowing me to participate in the care of your patient.
[2016-09-03 12:45] VITALS: BP 128/88
--- NOTE | 2016-09-03 12:48 | PN- Nephrology ---
Assessment/Plan Assessment: CHARLES just finished dialysis tolerated without problems. Renal biopsy Monday Would make NPO Monday night and discuss with IR Monday about renal biopsy if INR better Next HD Monday. Suggestion: . Subjective Subjective: Pt weak, rash worse. Just finished dialysis. Objective Vital Signs and I&Os M NAD 140/84 84 98 Lungs clear COr RRR Abd soft Ext purpuric rash Results Pertinent Lab Results: Laboratory Tests 09/03 09/03 09/02 09/02 0750 0255 1425 0545 Chemistry Sodium (137 - 145 mmol/L) 136 L 137 Potassium (3.5 - 5.1 mmol/L) 4.8 4.9 Chloride (98 - 107 mmol/L) 100 100 Carbon Dioxide (22 - 30 mmol/L) 23 23 Anion Gap (5 - 16) 12 14 BUN (9 - 20 mg/dL) 110 *H 86 H Creatinine (0.7 - 1.2 mg/dL) 5.7 *H 5.4 *H Estimated GFR (>60 ml/min) 10 L 10 L BUN/Creatinine Ratio (7 - 25 %) 19.3 15.9 Magnesium (1.6 - 2.3 mg/dL) 2.5 H 2.7 H Coagulation APTT (25 - 37 SEC) 68 H 63 H Hematology CBC w Diff NO MAN DIFF REQ WBC (4.8 - 10.8 /CUMM) 20.0 H RBC (4.70 - 6.10 /CUMM) 3.89 L Hgb (14.0 - 18.0 G/DL) 11.3 L Hct (42 - 52 %) 34.4 L MCV (80.0 - 94.0 FL) 88.4 MCH (27.0 - 31.0 PG) 29.0 RDW (11.5 - 14.5 %) 15.0 H Plt Count (130 - 400 /CUMM) 82 L MPV (7.4 - 10.4 FL) 9.0 Gran % (42.2 - 75.2 %) 93.1 H Lymphocytes % (20.5 - 51.1 %) 3.6 L Monocytes % (1.7 - 9.3 %) 2.8 Eosinophils % (0 - 5 %) 0.3 Basophils % (0.0 - 2.0 %) 0.2 Absolute Granulocytes (1.4 - 6.5 /CUMM) 18.6 H Absolute Lymphocytes (1.2 - 3.4 /CUMM) 0.7 L Absolute Monocytes (0.10 - 0.60 /CUMM) 0.6 Absolute Eosinophils (0.0 - 0.7 /CUMM) 0.1 Absolute Basophils (0.0 - 0.2 /CUMM) 0 PUBS MCHC (33.0 - 37.0 G/DL) 32.8 L 09/02 09/02 09/01 09/01 0435 0435 2000 1300 Chemistry Troponin I (<0.11 ng/ml) 0.02 0.03 Coagulation PT (9.4 - 12.5 SEC) 18.6 H INR (0.90 - 1.17) 1.78 H APTT (25 - 37 SEC) > 120 *H 54 H Hematology CBC w Diff MAN DIFF ORDERED WBC (4.8 - 10.8 /CUMM) 15.3 H RBC (4.70 - 6.10 /CUMM) 3.89 L Hgb (14.0 - 18.0 G/DL) 11.3 L Hct (42 - 52 %) 34.2 L MCV (80.0 - 94.0 FL) 88.0 MCH (27.0 - 31.0 PG) 29.1 RDW (11.5 - 14.5 %) 14.9 H Plt Count (130 - 400 /CUMM) 103 L MPV (7.4 - 10.4 FL) 8.0 Segmented Neutrophils (42.2 - 75.2 %) 91 H Lymphocytes (20.5 - 51.1 %) 3 L Monocytes (1.7 - 9.3 %) 6 Nucleated RBCs (0.0 - 0.0 /100WBC) 1 H Platelet Estimate (ADEQUATE) ADEQUATE Polychromasia 1+ Poikilocytosis 1+ Ovalocytes 1+ PUBS MCHC (33.0 - 37.0 G/DL) 33.1 Other Body Source Fld Total RBCs Counted (%) 100 09/01 0611 Chemistry Sodium (137 - 145 mmol/L) 135 L Potassium (3.5 - 5.1 mmol/L) 5.1 Chloride (98 - 107 mmol/L) 104 Carbon Dioxide (22 - 30 mmol/L) 19 L Anion Gap (5 - 16) 12 BUN (9 - 20 mg/dL) 91 H Creatinine (0.7 - 1.2 mg/dL) 6.1 *H Estimated GFR (>60 ml/min) 9 L BUN/Creatinine Ratio (7 - 25 %) 14.9 Phosphorus (2.5 - 4.5 mg/dL) 8.0 H Magnesium (1.6 - 2.3 mg/dL) 2.7 H Troponin I (<0.11 ng/ml) 0.03 Coagulation PT (9.4 - 12.5 SEC) 19.5 H INR (0.90 - 1.17) 1.87 H Hematology CBC w Diff NO MAN DIFF REQ WBC (4.8 - 10.8 /CUMM) 10.1 RBC (4.70 - 6.10 /CUMM) 3.85 L Hgb (14.0 - 18.0 G/DL) 11.3 L Hct (42 - 52 %) 34.0 L MCV (80.0 - 94.0 FL) 88.5 MCH (27.0 - 31.0 PG) 29.3 RDW (11.5 - 14.5 %) 14.8 H Plt Count (130 - 400 /CUMM) 130 MPV (7.4 - 10.4 FL) 7.9 Gran % (42.2 - 75.2 %) 89.9 H Lymphocytes % (20.5 - 51.1 %) 4.3 L Monocytes % (1.7 - 9.3 %) 5.7 Eosinophils % (0 - 5 %) 0 Basophils % (0.0 - 2.0 %) 0.1 Absolute Granulocytes (1.4 - 6.5 /CUMM) 9.0 H Absolute Lymphocytes (1.2 - 3.4 /CUMM) 0.4 L Absolute Monocytes (0.10 - 0.60 /CUMM) 0.6 Absolute Eosinophils (0.0 - 0.7 /CUMM) 0 Absolute Basophils (0.0 - 0.2 /CUMM) 0 PUBS MCHC (33.0 - 37.0 G/DL) 33.1
[2016-09-03 15:12] LABS: PT 18.7 SEC (9.4-12.5); PTT 89 SEC (25-37)
--- NOTE | 2016-09-03 15:30 | Event Note ---
Event Note Event Note: Around 1.30 pm, we got a call from [place] that the patient is complaining of excruciating pain in his right lower extremety (mid thigh to mid leg). On examination, the thigh was exquisitely tender with worsening of reddish discoloration extending from his upper of the right leg extending to the mid thigh. Dr. Gan by the bedside. Clinical exam was done to evaluate for compartment syndrome. Bed side arterial doppler obtained, normal dorsalis pedis and posterior pedal pulses. Surgical PA also evaluated the patient for possible compartment syndrome. USG Doppler lower extremities could not be obtained due to pain. Surgical PA recommended CT scan of right lower extremity to evaluate for necrotising fascitis. This probably could be due to cellulitis? Will draw blood cultures, empirically start the patient on antibiotics (Unasyn 1500 mg q12, renally adjusted). Dr. De and Dr. Gan in agreement with the plan.
--- NOTE | 2016-09-03 15:54 | ULTRASOUND REPORT ---
EXAMINATION: US DUPLEX EXTREMITY VEINS, RIGHT CLINICAL INFORMATION: Evaluate for right lower extremity compartment syndrome. Tenderness with petechial rash. COMPARISON: None TECHNIQUE: Grayscale images of the right lower extremity with venous compression were obtained. The examination was terminated early secondary to patient pain. FINDINGS/IMPRESSION: 1. Incomplete examination due to patient inability to tolerate the exam. 2. There is normal coaptation of the visualized portion of the right common femoral vein and femoral vein. The remainder of the right lower extremity was not evaluated.
[2016-09-03 16:29] VITALS: BP 136/70
--- NOTE | 2016-09-03 18:05 | CT SCAN REPORT ---
EXAMINATION: CT LOWER EXTREMITY WITHOUT CONTRAST, RIGHT CLINICAL INFORMATION: Extremely tender right leg with reddish discoloration. Evaluate for necrotizing fasciitis. COMPARISON: Right lower extremity venous Doppler ultrasound dated 09/03/2016 and 08/24/2016. TECHNIQUE: Multidetector volumetric imaging was performed from the mid thigh to the mid calf noncontrast. Intravenous contrast could not be given because of renal insufficiency. DLP: 1927.23 mGy-cm FINDINGS: Bones: The mid and distal femur and proximal and mid tibia and fibula as well as the patella all appear intact with no evidence of fracture, dislocation, focal lytic or destructive bone lesion or abnormal periosteal reaction. There is mild joint space narrowing and spurring seen in the medial and patellofemoral compartments. Chondrocalcinosis is noted in the medial femoral compartment. Small spurs are noted at the tibial spines and intercondylar notch and in the lateral femoral compartment. No significant knee joint effusion is seen. Soft tissues: There is mild diffuse anasarca seen with interstitial edema noted, appearing most prominent along the lateral aspect of the mid thigh, extending along both sides of the tensor fascia elly/iliotibial band to the level of the knee joint. No focal abscess collection or evidence of subcutaneous emphysema is seen. No radiopaque foreign bodies are seen in the soft tissues. The muscles of the thigh and proximal lower leg demonstrate mild atrophic changes with fatty marbling seen. No evidence of edema in the deep compartments of the leg is seen. Lymphovascular structures: There are multiple superficial venous varicosities seen in the imaged section of the right lower extremity. The femoral vein, popliteal vein, peroneal trunk and tibial and peroneal veins appear grossly unremarkable on noncontrast imaging. No secondary signs of deep venous thrombosis are seen (no definite enlargement of the deep veins or surrounding fat infiltration or internal filling defect appreciated on noncontrast exam). Mild diffuse atherosclerotic calcifications are noted in the right lower extremity. IMPRESSION: 1. Diffuse anasarca is seen in the soft tissues of the mid and distal thigh and proximal calf, most prominently involving the lateral soft tissues with some fluid seen tracking along both sides of the tensor fascia elly/iliotibial band to the level of the knee joint. No drainable abscess collection is seen. Findings are nonspecific and may be related to cellulitis, volume overload or heart failure. Close clinical correlation is requested. No specific evidence of necrotizing fasciitis is seen. 2. No evidence of osteomyelitis. 3. Prominent superficial venous varicosities. 4. Mild peripheral vascular atherosclerotic disease.
--- NOTE | 2016-09-03 20:08 | PN- General Surgery ---
Subjective Subjective: Asked to reevaluate right leg because of acute increase in tenderness and pain and some new swelling. Patient states the pain is worse than when I first saw him a week prior, he can barely bend it now and most of the discomfort is lateral on the thigh. But he says the rash is better, denies any headache shortness of breath. Objective Vital Signs and I&Os I reviewed Vital Signs Date Time Temp Pulse Resp B/P Pulse O2 O2 Flow FiO2 Ox Delivery Rate 09/03 1830 92 Room Air 09/03 1629 98.7 97 18 136/70 93 Room Air 09/03 1455 94 Room Air Room Air 09/03 1415 140/84 09/03 1245 98.1 89 20 128/88 96 Room Air 09/03 0000 Room Air 09/02 2352 98.1 84 20 140/84 96 Room Air I reviewed Intake & Output 09/03 1600 09/03 0800 09/03 0000 09/02 1600 09/02 0800 09/02 0000 Intake Total 448 344 600 284 198 Output Total 300 400 300 100 150 275 Balance -300 48 44 500 134 -77 Intake, IV 208 104 284 78 Intake, Oral 240 240 600 120 Number 1 Bowel Movements Output, Urine 300 400 300 100 150 275 Patient 232 lb 230 lb Weight Physical Exam: Constitutional: no acute distress no pain Eyes: sclera anicteric ENMT: moist mucous membranes Cardiovascular: S1-S2 no murmurs minimal bilateral leg peripheral edema slightly greater on the right Respiratory: clear to auscultation with normal respiratory effort and no intercostal retractions GI: abdomen soft nontender nondistended Extremities / lymphatics: Right leg is slightly more edematous than left but it seems similar to previous last week for rash is not as extensive but maybe a little deeper in color but he is very tender in the entire leg except foot and mostly on the lateral right thigh where there is no significant rash, distal pulses are not consistently palpable but it really isn't on the unaffected leg left either, and earlier Doppler signal was confirmed, the right leg is slightly warmer than the left and in both legs the thigh and calf compartments are symmetric and soft Skin: no jaundice no rashes warm, nondiaphoretic Psychiatric: mood and affect are appropriate and alert and oriented to person place and time Current Medications: I reviewed Current Medications Sig/Dagoberto Start time Last Medication Dose Route Stop Time Status Admin Acetaminophen 650 MG .STK-MED ONE 09/02 2253 DC PO 09/02 2254 Acetaminophen 650 MG Q6P PRN 08/23 2345 AC 09/02 PO 2256 Albuterol Sulfate 3 ML Q4P PRN 08/30 1645 AC 09/02 INH 1651 Ampicillin Sodium/ 1,500 MG Q12 09/03 2200 AC Sulbactam Sodium IV Sodium Chloride 100 ML Benzocaine/Menthol 1 SUKH Q4P PRN 08/31 1100 AC PO Benzonatate 100 MG TID PRN 08/25 1115 AC 08/30 PO 1652 Bisacodyl 5 MG DAILY 08/27 1358 AC 09/02 PO 1016 Cholecalciferol 1,000 IU DAILY 08/29 1046 AC 09/02 PO 1016 Folic Acid 1 MG DAILY 08/24 1000 AC 09/02 PO 1016 Guaifenesin 10 ML .STK-MED ONE 09/03 0547 DC PO 09/03 0548 Guaifenesin 10 ML Q6P PRN 08/26 1530 AC 09/03 PO 0549 Heparin Sodium 25,000 UNIT Q24H 09/01 1315 AC 09/01 (Porcine) IV 1445 Sodium Chloride 500 ML Metoprolol Succinate 100 MG DAILY 09/03 1000 AC 09/03 PO 1415 Morphine Sulfate 2 MG ONCE ONE 09/03 1445 DC 09/03 IV 09/03 1446 1515 Multivitamins 1 TAB DAILY 08/24 1000 AC 09/02 PO 1016 Omeprazole 40 MG DAILY AC 08/29 1045 AC 09/03 PO 0543 Oxycodone/ 1 TAB ONCE ONE 09/03 1400 DC 09/03 Acetaminophen PO 09/03 1401 1414 Patient Medication 1 UNIT 1000 09/03 1000 DC Teaching ED 09/03 1001 Phenol 2 SPRAY Q2P PRN 08/30 0900 AC 09/03 EXT 0543 Polyethylene Glycol 17 GM DAILY 08/27 1358 AC 09/02 PO 1015 Prednisone 60 MG DAILY 09/01 1000 AC 09/03 PO 1414 Thiamine HCl 100 MG DAILY 08/24 1000 AC 09/02 PO 1016 Results Last 48 Hours of Labs: I reviewed Laboratory Tests 09/03 09/03 09/03 1440 1440 1410 Chemistry Lactic Acid (0.7 - 2.1 mmol/L) 2.0 Creatine Kinase (55 - 170 U/L) 29 L Coagulation PT (9.4 - 12.5 SEC) 18.7 H Cancelled INR (0.90 - 1.17) 1.79 H Cancelled APTT (25 - 37 SEC) 89 H 09/03 09/03 09/02 09/02 0750 0255 1425 0545 Chemistry Sodium (137 - 145 mmol/L) 136 L 137 Potassium (3.5 - 5.1 mmol/L) 4.8 4.9 Chloride (98 - 107 mmol/L) 100 100 Carbon Dioxide (22 - 30 mmol/L) 23 23 Anion Gap (5 - 16) 12 14 BUN (9 - 20 mg/dL) 110 *H 86 H Creatinine (0.7 - 1.2 mg/dL) 5.7 *H 5.4 *H Estimated GFR (>60 ml/min) 10 L 10 L BUN/Creatinine Ratio (7 - 25 %) 19.3 15.9 Magnesium (1.6 - 2.3 mg/dL) 2.5 H 2.7 H Creatine Kinase (55 - 170 U/L) 46 L Coagulation APTT (25 - 37 SEC) 68 H 63 H Hematology CBC w Diff NO MAN DIFF REQ WBC (4.8 - 10.8 /CUMM) 20.0 H RBC (4.70 - 6.10 /CUMM) 3.89 L Hgb (14.0 - 18.0 G/DL) 11.3 L Hct (42 - 52 %) 34.4 L MCV (80.0 - 94.0 FL) 88.4 MCH (27.0 - 31.0 PG) 29.0 RDW (11.5 - 14.5 %) 15.0 H Plt Count (130 - 400 /CUMM) 82 L MPV (7.4 - 10.4 FL) 9.0 Gran % (42.2 - 75.2 %) 93.1 H Lymphocytes % (20.5 - 51.1 %) 3.6 L Monocytes % (1.7 - 9.3 %) 2.8 Eosinophils % (0 - 5 %) 0.3 Basophils % (0.0 - 2.0 %) 0.2 Absolute Granulocytes (1.4 - 6.5 /CUMM) 18.6 H Absolute Lymphocytes (1.2 - 3.4 /CUMM) 0.7 L Absolute Monocytes (0.10 - 0.60 /CUMM) 0.6 Absolute Eosinophils (0.0 - 0.7 /CUMM) 0.1 Absolute Basophils (0.0 - 0.2 /CUMM) 0 PUBS MCHC (33.0 - 37.0 G/DL) 32.8 L 09/02 09/02 0435 0435 Coagulation PT (9.4 - 12.5 SEC) 18.6 H INR (0.90 - 1.17) 1.78 H APTT (25 - 37 SEC) > 120 *H Hematology CBC w Diff MAN DIFF ORDERED WBC (4.8 - 10.8 /CUMM) 15.3 H RBC (4.70 - 6.10 /CUMM) 3.89 L Hgb (14.0 - 18.0 G/DL) 11.3 L Hct (42 - 52 %) 34.2 L MCV (80.0 - 94.0 FL) 88.0 MCH (27.0 - 31.0 PG) 29.1 RDW (11.5 - 14.5 %) 14.9 H Plt Count (130 - 400 /CUMM) 103 L MPV (7.4 - 10.4 FL) 8.0 Segmented Neutrophils (42.2 - 75.2 %) 91 H Lymphocytes (20.5 - 51.1 %) 3 L Monocytes (1.7 - 9.3 %) 6 Nucleated RBCs (0.0 - 0.0 /100WBC) 1 H Platelet Estimate (ADEQUATE) ADEQUATE Polychromasia 1+ Poikilocytosis 1+ Ovalocytes 1+ PUBS MCHC (33.0 - 37.0 G/DL) 33.1 Other Body Source Fld Total RBCs Counted (%) 100 Assessment/Plan Assessment/Plan I reviewed today's CT scan on PACS myself there are no obvious focal fluid collections or subcutaneous gas Unclear why there is such new pain and tenderness in the right leg because the physical exam otherwise is not that different neither is the imaging, however the venous Doppler was incomplete. I don't feel it's ischemia, not consistent with phlegmasia, and there are no signs of new infection, he did recently have high-dose steroids but now on a taper, there is no acute surgical intervention indicated. Core Measures/Miscellaneous Venous Thromboembolism VTE Risk Factors: Acute medical illness VTE Contraindications: Abn Clotting Times VTE Diagnosis: No VTE Type: NONE VTE Confirmed by (Test): NONE Beta Ervin Is Beta Ervin a Home Med? Yes If Yes, Was This Ordered Today? Yes Antibiotics Is Patient on Antibiotics? Yes
[2016-09-03 23:36] VITALS: BP 130/80
[2016-09-04 05:27] LABS: ABSOLUTE BASOPHIL COUNT 0 /CUMM (0.0-0.2); ABSOLUTE EOSINOPHIL COUNT 0 /CUMM (0.0-0.7); ABSOLUTE GRANULOCYTE CT 41.9 /CUMM (1.4-6.5); ABSOLUTE LYMPH COUNT 0.3 /CUMM (1.2-3.4); BASOPHIL % 0 % (0.0-2.0); EOSINOPHIL % 0 % (0-5); GRANULOCYTE % 96.9 % (42.2-75.2); HEMATOCRIT 37.5 % (42-52); MEAN CORPUSCULAR HGB 29.4 PG (27.0-31.0); MEAN CORPUSCULAR VOLUME 89.2 FL (80.0-94.0); MEAN PLATELET VOLUME 9.2 FL (7.4-10.4); PLATELET COUNT 72 /CUMM (130-400); RBC DISTRIBUTION WIDTH 15.2 % (11.5-14.5); RED BLOOD CELL CT 4.21 /CUMM (4.70-6.10)
[2016-09-04 05:32] LABS: PT 19.5 SEC (9.4-12.5)
[2016-09-04 05:33] LABS: PTT 45 SEC (25-37)
[2016-09-04 05:39] LABS: WHITE BLOOD CELL COUNT 43.3 /CUMM (4.8-10.8)
[2016-09-04 08:06] VITALS: BP 124/74
--- NOTE | 2016-09-04 08:33 | PN- Housestaff ---
Subjective Follow-up For: Petechial Rash Acute renal failure Hyperkalemia Atrial fibrillation HFrEF Tele-Events Since Last Visit: A. fib, 90s to 108 had a 5 beat V. tach this morning, bundle branch block Subjective: Seen and examined patient continues to complain of left leg pain especially his left upper thigh. Continues to feel weak, mild respiratory effort noted. Denied subjective fevers, chills, chest pain, palpitations, abdominal pain. Review of Systems Constitutional: Denies: chills, diaphoresis, fever, malaise, weakness, unexplained weight loss. Cardiovascular: Denies: chest pain, edema, orthopena, palpitations, peripheral edema, syncope. Respiratory: Reports: cough, hemoptysis, short of breath. Denies: orthopnea, sputum production, stridor, wheezing. Musculoskeletal: Reports: muscle pain. Objective Last 24 Hrs of Vital Signs/I&O Vital Signs Date Time Temp Pulse Resp B/P Pulse O2 O2 Flow FiO2 Ox Delivery Rate 09/04 1039 124/74 09/04 0806 96.8 105 18 124/74 94 Room Air 09/03 2336 97.6 106 18 130/80 96 Room Air 09/03 1830 92 Room Air 09/03 1629 98.7 97 18 136/70 93 Room Air 09/03 1455 94 Room Air Room Air 09/03 1415 140/84 Intake & Output 09/04 1600 09/04 0800 09/04 0000 Intake Total 548.8 258.8 Output Total 250 200 Balance 298.8 58.8 Intake, IV 308.8 208.8 Intake, Oral 240 50 Output, Urine 250 200 Physical Exam General Appearance: Alert, Oriented X3, Cooperative, Mild Distress Cardiovascular: Normal S1, Normal S2, irregularly regular Lungs: Clear to Auscultation, Normal Air Movement Abdomen: Normal Bowel Sounds, Soft, No Tenderness Extremities: Normal Pulses, increased erthyema and warmth of left lower extremity Current Medications: Current Medications Sig/Dagoberto Start time Last Medication Dose Route Stop Time Status Admin Acetaminophen 650 MG Q6P PRN 08/23 2345 AC 09/04 PO 1039 Albuterol Sulfate 3 ML Q4P PRN 08/30 1645 AC 09/02 INH 1651 Ampicillin Sodium/ 3,000 MG Q12 09/04 1000 AC 09/04 Sulbactam Sodium IV 1039 Sodium Chloride 100 ML Ampicillin Sodium/ 1,500 MG Q12 09/03 2200 DC 09/03 Sulbactam Sodium IV 2137 Sodium Chloride 100 ML Benzocaine/Menthol 1 SUKH Q4P PRN 08/31 1100 AC PO Benzonatate 100 MG TID PRN 08/25 1115 AC 08/30 PO 1652 Bisacodyl 5 MG DAILY 08/27 1358 AC 09/02 PO 1016 Cholecalciferol 1,000 IU DAILY 08/29 1046 AC 09/02 PO 1016 Folic Acid 1 MG DAILY 08/24 1000 AC 09/02 PO 1016 Guaifenesin 10 ML Q6P PRN 08/26 1530 AC 09/03 PO 0549 Heparin Sodium 25,000 UNIT Q24H 09/01 1315 AC 09/03 (Porcine) IV 1315 Sodium Chloride 500 ML Metoprolol Succinate 100 MG DAILY 09/03 1000 AC 09/04 PO 1039 Morphine Sulfate 2 MG ONCE ONE 09/03 1445 DC 09/03 IV 09/03 1446 1515 Multivitamins 1 TAB DAILY 08/24 1000 AC 09/02 PO 1016 Omeprazole 40 MG DAILY AC 08/29 1045 AC 09/04 PO 0611 Oxycodone/ 1 TAB ONCE ONE 09/03 1400 DC 09/03 Acetaminophen PO 09/03 1401 1414 Phenol 2 SPRAY Q2P PRN 08/30 0900 AC 09/03 EXT 0543 Polyethylene Glycol 17 GM DAILY 08/27 1358 AC 09/02 PO 1015 Prednisone 60 MG DAILY 09/01 1000 AC 09/04 PO 1039 Thiamine HCl 100 MG DAILY 08/24 1000 AC 09/02 PO 1016 Last 24 Hrs of Lab/Hemal Results Last 24 Hrs of Labs/Mics: Laboratory Tests 09/04/16 1215: APTT Pending 09/04/16 0410: PT 19.5 H, INR 1.87 H 09/04/16 0410: Anion Gap 14, Estimated GFR 16 L, BUN/Creatinine Ratio 16.2, APTT 45 H, CBC w Diff MAN DIFF ORDERED, RBC 4.21 L, MCV 89.2, MCH 29.4, RDW 15.2 H, MPV 9.2, Gran % 96.9 H, Lymphocytes % 0.8 L, Monocytes % 2.3, Eosinophils % 0, Basophils % 0 L, Absolute Granulocytes 41.9 H, Segmented Neutrophils 99 H, Absolute Lymphocytes 0.3 L, Monocytes 1 L, Absolute Monocytes 1.0 H, Absolute Eosinophils 0, Absolute Basophils 0, Platelet Estimate DECREASED, Hypochromic- Microcytic 1+, Poikilocytosis 1+, Anisocytosis 1+, [place] Cells 1+, PUBS MCHC 33.0 09/03/16 1440: Lactic Acid 2.0 09/03/16 1440: Creatine Kinase 29 L, PT 18.7 H, INR 1.79 H, APTT 89 H 09/03/16 1410: PT Cancelled, INR Cancelled Microbiology 09/03 1800 BLOOD: Blood Culture - RES 09/03 1745 BLOOD: Blood Culture - RES Assessment/Plan Assessment: 71-year-old gentleman with past medical history significant for atrial fibrillation on Coumadin, hypertension, CAD status post stents, recently admitted 3 weeks ago after significant bleeding from varicose vein requiring 2 units transfusion with current admission for worsening lower right leg pain and acute development of diffusely spreading petechial rash. Admitted to the general medicine floor with the following investigations were done: Fibrinogen activity 417, Fibrinogen products greater than 10, d-dimer 1789 Hepatitis panel negative, HIV nonreactive, antinuclear antibody negative, MARTIN and complement levels are normal, ESR was 36, c and p ANCA negative C-reactive protein 5.9. Venous Doppler negative for any deep vein thrombosis. Was transferred to the telemetry floor on 08/29/16 as his Coumadin and aspirin was going to be held in anticipation of renal biopsy and to monitor for any arrhythmias. Yesterday he had increasing pain worsening erythema of his right lower extremity and was started on IV Unasyn he continues to endorse pain, a febrile overnight WBC doubling to 43.3 from 20 with left shift. Platelet count trending down to 72 today. Plan: Thrombocytopenia: * Questionable HIT, 4Tscore was seven putting him at mod to high risk of HIT. [place] in not a good choice secondary to his renal failure. Will stop IV heparin and start him on argartroban (nursing staff informed). spoke to pharmacy regarding appropriate dosing will start him on 2 mcg/kg/min. * will send for Hit antibody testing and serotonin release assay. 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 * Normal kampa/ lambda light chain ratio however both light chains are significantly high, myeloperoxidase antibody negative. * Pulm on board * On 60mg PO prednisone daily * Possiblity of cellulitis however skin changes could also be secondary to necrosis, on IV unasyn. ID aware of pt, appreciate recomendations. Acute renal failure with hyperkalemia * HSP vs cardiorenal * Potassium levels 4.7 today * Status post Raul cath Placement, site looks clean no signs of infection * Cr of 3.7 will have dialysis on September 13 * INR 1.87 today, will touch base with nephrology and IR whether the biopsy can happen tommorrow in view of the possibility of underlying infection. Called and spoked to hematology who is recommending injectable vit K or k centra = 4-factor prothrombin complex concentrate to help with bring INR down. * Nephrology on board appreciate recommendations. * Continue renal dialysis diet. Right lower extremity ulcer (chronic venous stasis ulcer * Wound on board, continue to follow their rec's * Xeroform and leg elevation above his heart * Akbar applied from feet to popliteal fossa Atrial fibrillation/HFrEF with episode of NSVT * Coumadin and aspirin discontinued secondary to hemoptysis as well as in anticipation of renal biopsy early next week. * Cardiology on board, echo shows reduced EF of 25%, in November 2015 EF was approx 45% * Topriol XL increased to 100 mg PO daily yesterday due to episode of NSVT, continue to monitor for NSVT. * Lipitor 20 mg PO daily should be added when medically cleared * CHADVASc score is 4 putting him at mod-high risk for stroke, will stop IV heparin and start * Will resume AC soon as possible after his renal biopsy. Hypertension * Toprol XL 50mg increased to 100 mg daily, pulmonology is ok with the increase in dose CAD status post stents * Off aspirin DVT prophylaxis * argatroban CODE STATUS * DNR/DNI Problem List: 1. HFrEF (heart failure with reduced ejection fraction) 2. Glomerulonephritis 3. Petechial rash 4. Acute kidney injury 5. Atrial fibrillation Pain Ratin Pain Location: lower left leg Pain Goal: Pain 4 or less Pain Plan: current regimen Tomorrow's Labs & Rationales: cbc, bep, inr. Consulting Request: Consulting Specialty: Hematology/Oncology
--- NOTE | 2016-09-04 08:55 | NUR ---
PT HAD [address] BERNSTEIN MADE AWARE. ASYMPTOMATIC. BP 124/74. NO FURTHER ORDERS
--- NOTE | 2016-09-04 14:54 | PN- Att Addend ---
See Addendum Attending MD Review Statement Attending Statement Attending MD Statement: examined this patient, discuss w/resident/PA/COST ESTIMATING MANAGER, agreed w/resident/PA/COST ESTIMATING MANAGER, reviewed EMR data (avail), discussed w/nursing Attending Assessment/Plan: Laboratory Tests 09/04/16 1215: APTT Pending 09/04/16 0410: PT 19.5 H, INR 1.87 H 09/04/16 0410: Anion Gap 14, Estimated GFR 16 L, BUN/Creatinine Ratio 16.2, APTT 45 H, CBC w Diff MAN DIFF ORDERED, RBC 4.21 L, MCV 89.2, MCH 29.4, RDW 15.2 H, MPV 9.2, Gran % 96.9 H, Lymphocytes % 0.8 L, Monocytes % 2.3, Eosinophils % 0, Basophils % 0 L, Absolute Granulocytes 41.9 H, Segmented Neutrophils 99 H, Absolute Lymphocytes 0.3 L, Monocytes 1 L, Absolute Monocytes 1.0 H, Absolute Eosinophils 0, Absolute Basophils 0, Platelet Estimate DECREASED, Hypochromic- Microcytic 1+, Poikilocytosis 1+, Anisocytosis 1+, Myron Cells 1+, PUBS MCHC 33.0 Vital Signs Date Time Temp Pulse Resp B/P Pulse O2 O2 Flow FiO2 Ox Delivery Rate 09/04 1230 95 Room Air 09/04 1039 124/74 09/04 0806 96.8 105 18 124/74 94 Room Air 09/03 2336 97.6 106 18 130/80 96 Room Air 09/03 1830 92 Room Air 09/03 1629 98.7 97 18 136/70 93 Room Air 09/03 1455 94 Room Air Room Air Patient seen and examined at bedside. Right lower extremity redness and swelling with purpuric type rash. The swelling in the thigh area is still present and patient has tenderness on palpation in the thigh area. Put 2 pillows under his right leg for elevation of the leg. Patient has some improvement in his pain in the right leg compared with yesterday. We will continue with the IV antibiotics for now and we will also continue with leg elevation. Reviewed the CAT scan findings of the leg with the surgery attending. He does not think patient has necrotizing fasciitis or compartment syndrome. Thrombocytopenia-with platelet count of 72,000 today. Patient was seen by hematology about 10 days ago for thrombocytopenia but his platelet count recovered. But now the platelet count has down trended again and patient currently is on IV heparin drip for his atrial fibrillation. We will send for HIT antibody and will get hematology involved again in the case. We're anyways going to stop his heparin drip tomorrow for renal biopsy and and if his platelets are dropping further we will not start the heparin drip again and will consider argatroban as a substitute. We will also discuss with hematology the high kappa and lambda chains with normal ratio. Patient is in ago for his renal biopsy tomorrow. We will call IR in the morning to find out what time he will be going for his renal biopsy and stop his heparin drip accordingly. We will also check his INR after stopping the heparin drip. We will give FFP's prior to renal biopsy if INRs continues to stay high. We will also add LFTs to today's lab to make sure his liver functions are stable.
[2016-09-04 15:49] VITALS: BP 142/82
--- NOTE | 2016-09-04 16:05 | PN- Cardiology ---
Subjective Subjective: Patient laying flat in bed with minimal dyspnea. He does have pain in his leg. Denies chest pain or recurrent hemoptysis. Objective Vital Signs and I&Os Vital Signs Date Time Temp Pulse Resp B/P Pulse O2 O2 Flow FiO2 Ox Delivery Rate 09/04 1549 97.3 93 18 142/82 96 Room Air 09/04 1230 95 Room Air 09/04 1039 124/74 09/04 0806 96.8 105 18 124/74 94 Room Air 09/03 2336 97.6 106 18 130/80 96 Room Air 09/03 1830 92 Room Air 09/03 1629 98.7 97 18 136/70 93 Room Air Intake & Output 09/04 1600 09/04 0800 09/04 0000 09/03 1600 09/03 0800 09/03 0000 Intake Total 548.8 258.8 448 344 Output Total 200 250 200 300 400 300 Balance -200 298.8 58.8 -300 48 44 Intake, IV 308.8 208.8 208 104 Intake, Oral 240 50 240 240 Output, Urine 200 250 200 300 400 300 Patient 232 lb Weight Physical Exam: General: no apparent distress. Alert. Laying flat. Eyes: No obvious scleral icterus. HEENT: No jugular venous distention or abnormal jugular venous pulsations. Cardiovascular: Normal intensity S1/S2. Irregular. Respiratory: Trace bilateral wheezes Abdomen: no guarding or rebound tenderness. Musculoskeletal: No clubbing or cyanosis noted, LE edema bilaterally Skin: Rash noted, warm Neurologic: No gross focal deficits noted. Current Medications: Current Medications Sig/Dagoberto Start time Last Medication Dose Route Stop Time Status Admin Acetaminophen 650 MG Q6P PRN 08/23 2345 AC 09/04 PO 1039 Albuterol Sulfate 3 ML Q4P PRN 08/30 1645 AC 09/02 INH 1651 Ampicillin Sodium/ 3,000 MG Q12 09/04 1000 AC 09/04 Sulbactam Sodium IV 1039 Sodium Chloride 100 ML Ampicillin Sodium/ 1,500 MG Q12 09/03 2200 DC 09/03 Sulbactam Sodium IV 2137 Sodium Chloride 100 ML Benzocaine/Menthol 1 SUKH Q4P PRN 08/31 1100 AC PO Benzonatate 100 MG TID PRN 08/25 1115 AC 08/30 PO 1652 Bisacodyl 5 MG DAILY 08/27 1358 AC 09/02 PO 1016 Cholecalciferol 1,000 IU DAILY 08/29 1046 AC 09/02 PO 1016 Folic Acid 1 MG DAILY 08/24 1000 AC 09/02 PO 1016 Guaifenesin 10 ML Q6P PRN 08/26 1530 AC 09/03 PO 0549 Heparin Sodium 25,000 UNIT Q24H 09/01 1315 AC 09/03 (Porcine) IV 1315 Sodium Chloride 500 ML Metoprolol Succinate 100 MG DAILY 09/03 1000 AC 09/04 PO 1039 Multivitamins 1 TAB DAILY 08/24 1000 AC 09/02 PO 1016 Omeprazole 40 MG DAILY AC 08/29 1045 AC 09/04 PO 0611 Phenol 2 SPRAY Q2P PRN 08/30 0900 AC 09/03 EXT 0543 Polyethylene Glycol 17 GM DAILY 08/27 1358 AC 09/02 PO 1015 Prednisone 60 MG DAILY 09/01 1000 AC 09/04 PO 1039 Thiamine HCl 100 MG DAILY 08/24 1000 AC 09/02 PO 1016 Results Last 48 Hrs of Labs/Mics: Laboratory Tests 09/04/16 1215: APTT Pending 09/04/16 0410: PT 19.5 H, INR 1.87 H 09/04/16 0410: Anion Gap 14, Estimated GFR 16 L, BUN/Creatinine Ratio 16.2, APTT 45 H, CBC w Diff MAN DIFF ORDERED, RBC 4.21 L, MCV 89.2, MCH 29.4, RDW 15.2 H, MPV 9.2, Gran % 96.9 H, Lymphocytes % 0.8 L, Monocytes % 2.3, Eosinophils % 0, Basophils % 0 L, Absolute Granulocytes 41.9 H, Segmented Neutrophils 99 H, Absolute Lymphocytes 0.3 L, Monocytes 1 L, Absolute Monocytes 1.0 H, Absolute Eosinophils 0, Absolute Basophils 0, Platelet Estimate DECREASED, Hypochromic- Microcytic 1+, Poikilocytosis 1+, Anisocytosis 1+, [place] Cells 1+, PUBS MCHC 33.0 , Hepatitis A IgM Ab Pending, Hep Bs Antigen Pending, Hep B Core IgM Ab Conf Pending, Hepatitis C Antibody Pending 09/03/16 1440: Lactic Acid 2.0 09/03/16 1440: Creatine Kinase 29 L, PT 18.7 H, INR 1.79 H, APTT 89 H 09/03/16 1410: PT Cancelled, INR Cancelled 09/03/16 0750: Anion Gap 12, Estimated GFR 10 L, BUN/Creatinine Ratio 19.3, Magnesium 2.5 H, Creatine Kinase 46 L, CBC w Diff NO MAN DIFF REQ, RBC 3.89 L, MCV 88.4, MCH 29.0, RDW 15.0 H, MPV 9.0, Gran % 93.1 H, Lymphocytes % 3.6 L, Monocytes % 2.8, Eosinophils % 0.3, Basophils % 0.2, Absolute Granulocytes 18.6 H, Absolute Lymphocytes 0.7 L, Absolute Monocytes 0.6, Absolute Eosinophils 0.1, Absolute Basophils 0, PUBS MCHC 32.8 L 09/03/16 0255: APTT 68 H Recent Imaging Studies: Telemetry tracings were personally reviewed and show atrial fibrillation with controlled ventricular response rate and short NSVT runs Assessment/Plan Assessment/Plan 1. Progressive renal failure with hyperkalemia with suspicion for glomerulonephritis 2. Persistent atrial fibrillation on anticoagulation with Coumadin on hold 3. History of coronary artery disease/prior myocardial infarction with mild to moderate left ventricular dysfunction by previous noninvasive imaging, now with severe LV dysfunction 4. NSVT on telemetry 5. Small bilateral pleural effusions 6. Chronic left bundle branch block 7. Hx HTN 8. Venous insufficiency 9. Thrombocytopenia The patient does have some trace wheezing today but given the short runs of NSVT on telemetry would continue on the higher dose Toprol XL 100 mg daily and continue the nebulizers. His platelet count is trending down, ? concern for HIT? . Continue on telemetry without interruption. Recommend adding low-dose Lipitor 20 mg by mouth daily when medically cleared. Resume daily ASA when medically cleared. He is at moderate cardiovascular risk for Renal biopsy. Jonh Stanley MD [facility] Continue telemetry? Yes
[2016-09-04 16:25] LABS: PTT 70 SEC (25-37)
[2016-09-04 20:47] LABS: PTT 89 SEC (25-37)
[2016-09-04 22:31] LABS: PTT 73 SEC (25-37)
[2016-09-04 22:55] VITALS: BP 128/80
--- NOTE | 2016-09-05 07:27 | PN- Hematology ---
Subjective Subjective: Patient's biggest complaint is pyrosis, patient complains of marked fatigue Review of Systems: 12 point review of systems otherwise nonspecific Objective Vital Signs and I&Os Vital Signs Date Time Temp Pulse Resp B/P Pulse O2 O2 Flow FiO2 Ox Delivery Rate 09/04 2255 97.6 80 18 128/80 96 Room Air 09/04 1924 95 Room Air Room Air 09/04 1828 99.3 09/04 1549 97.3 93 18 142/82 96 Room Air 09/04 1230 95 Room Air 09/04 1039 124/74 09/04 0806 96.8 105 18 124/74 94 Room Air Intake & Output 09/05 0800 09/05 0000 09/04 1600 09/04 0800 09/04 0000 09/03 1600 Intake Total 278.8 570.4 548.8 258.8 Output Total 225 320 200 250 200 300 Balance 53.8 250.4 -200 298.8 58.8 -300 Intake, IV 228.8 170.4 308.8 208.8 Intake, Oral 50 400 240 50 Output, Urine 225 320 200 250 200 300 Patient 231 lb Weight Gen.: in NAD ENT: Sclera anicteric Chest: Normal respiratory effort, decreased breath sounds Cor: RRR, Abdomen: Soft, bowel sounds present, no dramatic tenderness, Extremities: Without clubbing, cyanosis, Neurology: Alert and oriented 3, no gross deficit Skin: Marked hemorrhagic dermatitis persists Current Medications: Current Medications Sig/Dagoberto Start time Last Medication Dose Route Stop Time Status Admin Acetaminophen 650 MG .STK-MED ONE 09/04 0931 DC PO 09/04 0932 Acetaminophen 650 MG Q6P PRN 08/23 2345 AC 09/04 PO 1039 Albuterol Sulfate 3 ML Q4P PRN 08/30 1645 AC 09/04 INH 1952 Ampicillin Sodium/ 3,000 MG Q12 09/04 1000 AC 09/04 Sulbactam Sodium IV 2250 Sodium Chloride 100 ML Ampicillin Sodium/ 1,500 MG Q12 09/03 2200 DC 09/03 Sulbactam Sodium IV 2137 Sodium Chloride 100 ML Argatroban 250 MG Q19H 09/04 1700 AC 09/04 Sodium Chloride 250 ML IV 1754 Benzocaine/Menthol 1 SUKH Q4P PRN 08/31 1100 AC PO Benzonatate 100 MG TID PRN 08/25 1115 AC 08/30 PO 1652 Bisacodyl 5 MG DAILY 08/27 1358 AC 09/02 PO 1016 Cholecalciferol 1,000 IU DAILY 08/29 1046 AC 09/02 PO 1016 Folic Acid 1 MG DAILY 08/24 1000 AC 09/02 PO 1016 Guaifenesin 10 ML Q6P PRN 08/26 1530 AC 09/03 PO 0549 Heparin Sodium 25,000 UNIT Q24H 09/01 1315 DC 09/03 (Porcine) IV 1315 Sodium Chloride 500 ML Metoprolol Succinate 100 MG DAILY 09/03 1000 AC 09/04 PO 1039 Multivitamins 1 TAB DAILY 08/24 1000 AC 09/02 PO 1016 Non-Formulary 0 SEE ADMIN CRITERIA 09/04 1645 CAN Medication ANY Omeprazole 40 MG DAILY AC 08/29 1045 AC 09/04 PO 0611 Phenol 2 SPRAY Q2P PRN 08/30 0900 AC 09/05 EXT 0632 Polyethylene Glycol 17 GM DAILY 08/27 1358 AC 09/02 PO 1015 Prednisone 60 MG DAILY 09/01 1000 AC 09/04 PO 1039 Thiamine HCl 100 MG DAILY 08/24 1000 AC 09/02 PO 1016 Results Last 24 Hours of Lab Results: Laboratory Tests 09/05 09/04 09/04 09/04 09/04 0651 2200 2145 1955 1215 Chemistry Sodium Pending Potassium Pending Chloride Pending Carbon Dioxide Pending Anion Gap Pending BUN Pending Creatinine Pending BUN/Creatinine Ratio Pending Magnesium Pending Coagulation PT Pending INR Pending APTT (25 - 37 SEC) Pending 73 H 89 H 70 H Hematology CBC w Diff Pending Cancelled WBC Pending Cancelled RBC Pending Cancelled Hgb Pending Cancelled Hct Pending Cancelled MCV Pending Cancelled MCH Pending Cancelled RDW Pending Cancelled Plt Count Pending Cancelled MPV Pending Cancelled PUBS MCHC Pending Cancelled Last platelet count-70,000, white blood count greater than 40,000 all neutrophils, hematocrit stable Light chain analysis-elevated kappa And lambda light chains, immunofixation-no monoclonal abnormalities Assessment/Plan Assessment/Recommendations: 1. Thrombocytopenia coagulopathy-likely multifactorial. Heparin has been discontinued and argatroban has been started. Persistent PT and PTT elevations likely due to ongoing anticoagulation Recommend- Serology for HIT If after argatroban is discontinued and PTT/PT remain elevated-FFP Check fibrinogen 2. Leukocytosis-no left shift-likely due to steroids. Sweet's syndrome has not been identified to have no suspicion for acute leukemia 3. Elevated light chains-no monoclonal proteins identified-likely inflammatory in origin 4. Renal failure-await kidney biopsy
[2016-09-05 07:46] LABS: ABSOLUTE BASOPHIL COUNT 0 /CUMM (0.0-0.2); ABSOLUTE EOSINOPHIL COUNT 0 /CUMM (0.0-0.7); ABSOLUTE GRANULOCYTE CT 30.8 /CUMM (1.4-6.5); ABSOLUTE LYMPH COUNT 0.9 /CUMM (1.2-3.4); ABSOLUTE MONOCYTE COUNT 1.4 /CUMM (0.10-0.60); BASOPHIL % 0 % (0.0-2.0); EOSINOPHIL % 0 % (0-5); MEAN CORPUSCULAR HGB CONC 32.7 G/DL (33.0-37.0); MEAN CORPUSCULAR VOLUME 88.6 FL (80.0-94.0); MEAN PLATELET VOLUME 9.6 FL (7.4-10.4); PLATELET COUNT 91 /CUMM (130-400); RBC DISTRIBUTION WIDTH 15.3 % (11.5-14.5); RED BLOOD CELL CT 4.28 /CUMM (4.70-6.10)
[2016-09-05 08:17] VITALS: BP 124/72
--- NOTE | 2016-09-05 08:19 | PN- Wound Care ---
Subjective Subjective: Peguero over the weekend reviewed. No evidence of compartment syndrome delineated. No evidence of DVT. Objective Vital Signs and I&Os Vital Signs Result Date Time Pulse Ox 96 09/04 2254 B/P 128/80 09/04 2254 O2 Delivery Room Air 09/04 2254 Temp 97.6 09/04 2254 Pulse 80 09/04 2254 Resp 18 09/04 225 O2 Flow Rate Room Air 09/04 1924 Intake & Output 09/05 0000 09/04 1600 09/04 0800 Intake Total 570.4 548.8 Output Total 320 200 250 Balance 250.4 -200 298.8 Intake, IV 170.4 308.8 Intake, Oral 400 240 Output, Urine 320 200 250 Right lower extremity ulcer has been left uncovered and now has dry wound bed there is scant drainage there are new areas of erythema over the medial and lateral upper leg lower thigh appear similar to his initial rash. Concern was raised over possible cellulitis in view of leukocytosis though he continues to be monitored off antibiotics. Wound measurements are unchanged there is no undermining sinus tracking. Impression/Plan Impression/Plan Impression/Plan: Continue leg elevation to control edema. Resume moist wound care with Xeroform daily and daily wound cleansing. If his wound fails to improve consideration of biopsy would be appropriate in view of his believed underlying inflammatory process
[2016-09-05 08:48] LABS: WHITE BLOOD CELL COUNT 33.1 /CUMM (4.8-10.8)
[2016-09-05 09:00] LABS: PT 63.2 SEC (9.4-12.5); PTT 107 SEC (25-37)
--- NOTE | 2016-09-05 09:18 | NUR ---
PT RECEIVING ARGATROBAN IV HE DEVELOPED HIT WITH HEPARIN GTT. ARGATROBAN INFUSING AT 2 MCG/KG/MIN OR 12.6 ML/HR. LAB CALLED WITH PT 63.2, INR 6.13 AND PTT 107. SPOKE WITH DR MANOLO AMES AND DR BERNSTEIN WHO REVIEWED ARGATROBAN TITRATION POLICY. POLICY STATES TO DECREASE DRIP BY 25% (MULTIPLE BY 0.75 FOR NEW RATE) AND THEN RECHECK PTT IN 2 HRS. ARGATROBAN-NEW RATE IS 9.5 ML/HR OR 1.51 MCG/KG/MIN. PTT ORDERED FOR 11 AM.
--- NOTE | 2016-09-05 09:33 | PN- Nephrology ---
Assessment/Plan Assessment: 1. Acute kidney injury. 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 A closed renal biopsy was planned today, however, he is developed possible heparin induced thrombocytopenia. He is on argatroban. He was last dialyzed on Monday. He will be dialyzed again today. His creatinine has improved due to dialysis. The fact that it willam from yesterday to today would suggest that the kidneys have not yet begun to respond to therapy. He did make 770 mL of urine yesterday. 2. Volume status area he does appear to be a bit volume overloaded 3. History of coronary artery disease status post PTCA 4. History of atrial fibrillation 5. Thrombocytopenia. He is being evaluated for heparin-induced thrombocytopenia. Of note, there is mention of thrombocytopenia on his recent hospital stay in July of this year. Evaluation of this was deferred to the outpatient setting. Of note, the severity was not to this degree. Suggestion: 1. Dialysis will be planned for today 2. The team will be asking surgery to revisit a biopsy of the skin with immunofluorescence. 3. Closed renal biopsy when able Subjective Subjective: Patient says he does feel a bit better. He denies difficulty voiding. Objective Vital Signs and I&Os Vital Signs Date Time Temp Pulse Resp B/P Pulse O2 O2 Flow FiO2 Ox Delivery Rate 09/05 0840 96 Room Air 09/05 0817 97.3 90 18 124/72 94 Room Air 09/04 2255 97.6 80 18 128/80 96 Room Air 09/04 1924 95 Room Air Room Air 09/04 1828 99.3 09/04 1549 97.3 93 18 142/82 96 Room Air 09/04 1230 95 Room Air 09/04 1039 124/74 Intake & Output 09/05 1600 09/05 0400 09/04 1600 09/04 0400 09/03 1600 09/03 0400 Intake Total 278.8 570.4 548.8 258.8 448 344 Output Total 225 320 450 200 700 300 Balance 53.8 250.4 98.8 58.8 -252 44 Intake, IV 228.8 170.4 308.8 208.8 208 104 Intake, Oral 50 400 240 50 240 240 Output, Urine 225 320 450 200 700 300 Patient 231 lb 232 lb Weight Physical Exam General Appearance: well developed/nourished, no apparent distress, comfortable, obese Head: atraumatic, normal appearance Ears, Nose, Throat: hearing grossly normal, missing a few teeth Neck: normal inspection, supple, trachea mid line Respiratory: normal breath sounds, chest non-tender Cardiovascular: regular rate/rhythm Peripheral Pulses: 1+ tibialis posterior (R), 1+ tibialis posterior (L), 1+ dorsalis pedis (R), 1+ dorsalis pedis (L) Abdomen: normal bowel sounds, soft, non-tender, no organomegaly, no abdominal bruits Extremities: chronic venous stasis changes right greater than left. Both feet cool to the touch Neurologic/Psychiatric: no motor/sensory deficits, awake, alert, oriented x 3 Skin: chronic venous stasis changes coupled with a rash Current Medications: Current Medications Sig/Dagoberto Start time Last Medication Dose Route Stop Time Status Admin Acetaminophen 650 MG .STK-MED ONE 09/04 0931 DC PO 09/04 0932 Acetaminophen 650 MG Q6P PRN 08/23 2345 AC 09/04 PO 1039 Albuterol Sulfate 3 ML Q4P PRN 08/30 1645 AC 09/05 INH 0839 Ampicillin Sodium/ 3,000 MG Q12 09/04 1000 AC 09/04 Sulbactam Sodium IV 2250 Sodium Chloride 100 ML Argatroban 250 MG Q19H 09/04 1700 AC 09/04 Sodium Chloride 250 ML IV 1754 Benzocaine/Menthol 1 SUKH Q4P PRN 08/31 1100 AC PO Benzonatate 100 MG TID PRN 08/25 1115 AC 08/30 PO 1652 Bisacodyl 5 MG DAILY 08/27 1358 AC 09/02 PO 1016 Cholecalciferol 1,000 IU DAILY 08/29 1046 AC 09/02 PO 1016 Folic Acid 1 MG DAILY 08/24 1000 AC 09/02 PO 1016 Guaifenesin 10 ML Q6P PRN 08/26 1530 AC 09/03 PO 0549 Heparin Sodium 25,000 UNIT Q24H 09/01 1315 DC 09/03 (Porcine) IV 1315 Sodium Chloride 500 ML Metoprolol Succinate 100 MG DAILY 09/03 1000 AC 09/04 PO 1039 Multivitamins 1 TAB DAILY 08/24 1000 AC 09/02 PO 1016 Non-Formulary 0 SEE ADMIN CRITERIA 09/04 1645 CAN Medication ANY Omeprazole 40 MG DAILY AC 08/29 1045 AC 09/04 PO 0611 Phenol 2 SPRAY Q2P PRN 08/30 0900 AC 09/05 EXT 0632 Polyethylene Glycol 17 GM DAILY 08/27 1358 AC 09/02 PO 1015 Prednisone 60 MG DAILY 09/01 1000 AC 09/04 PO 1039 Thiamine HCl 100 MG DAILY 08/24 1000 AC 09/02 PO 1016 Results Pertinent Lab Results: Laboratory Tests 09/05 09/04 09/04 0651 2200 2145 Chemistry Sodium (137 - 145 mmol/L) 135 L Potassium (3.5 - 5.1 mmol/L) 4.5 Chloride (98 - 107 mmol/L) 98 Carbon Dioxide (22 - 30 mmol/L) 28 Anion Gap (5 - 16) 10 BUN (9 - 20 mg/dL) 91 H Creatinine (0.7 - 1.2 mg/dL) 4.5 H Estimated GFR (>60 ml/min) 13 L BUN/Creatinine Ratio (7 - 25 %) 20.2 Magnesium (1.6 - 2.3 mg/dL) 2.6 H Coagulation PT (9.4 - 12.5 SEC) 63.2 *H INR (0.90 - 1.17) 6.13 *H APTT (25 - 37 SEC) 107 *H 73 H Hematology CBC w Diff MAN DIFF ORDERED Cancelled WBC (4.8 - 10.8 /CUMM) 33.1 *H Cancelled RBC (4.70 - 6.10 /CUMM) 4.28 L Cancelled Hgb (14.0 - 18.0 G/DL) 12.4 L Cancelled Hct (42 - 52 %) 38.0 L Cancelled MCV (80.0 - 94.0 FL) 88.6 Cancelled MCH (27.0 - 31.0 PG) 29.0 Cancelled RDW (11.5 - 14.5 %) 15.3 H Cancelled Plt Count (130 - 400 /CUMM) 91 L Cancelled MPV (7.4 - 10.4 FL) 9.6 Cancelled Gran % (42.2 - 75.2 %) 93.0 H Lymphocytes % (20.5 - 51.1 %) 2.6 L Monocytes % (1.7 - 9.3 %) 4.4 Eosinophils % (0 - 5 %) 0 Basophils % (0.0 - 2.0 %) 0 L Absolute Granulocytes (1.4 - 6.5 /CUMM) 30.8 H Absolute Lymphocytes (1.2 - 3.4 /CUMM) 0.9 L Absolute Monocytes (0.10 - 0.60 /CUMM) 1.4 H Absolute Eosinophils (0.0 - 0.7 /CUMM) 0 Absolute Basophils (0.0 - 0.2 /CUMM) 0 Polychromasia 1+ Poikilocytosis 1+ Anisocytosis 2+ Ovalocytes 1+ PUBS MCHC (33.0 - 37.0 G/DL) 32.7 L Cancelled 09/04 1215 0410 0410 Chemistry Sodium (137 - 145 mmol/L) 136 L Potassium (3.5 - 5.1 mmol/L) 4.7 Chloride (98 - 107 mmol/L) 100 Carbon Dioxide (22 - 30 mmol/L) 22 Anion Gap (5 - 16) 14 BUN (9 - 20 mg/dL) 60 H Creatinine (0.7 - 1.2 mg/dL) 3.7 H Estimated GFR (>60 ml/min) 16 L BUN/Creatinine Ratio (7 - 25 %) 16.2 Total Bilirubin (0.2 - 1.3 mg/dL) 2.7 H Direct Bilirubin (< 0.4 mg/dL) 1.3 H AST (17 - 59 U/L) 15 L ALT (21 - 72 U/L) 38 Alkaline Phosphatase (< 127 U/L) 98 Total Protein (6.3 - 8.2 g/dL) 5.1 L Albumin (3.5 - 5.0 g/dL) 2.1 L Coagulation PT (9.4 - 12.5 SEC) 19.5 H INR (0.90 - 1.17) 1.87 H APTT (25 - 37 SEC) 89 H 70 H 45 H Hematology CBC w Diff MAN DIFF ORDERED WBC (4.8 - 10.8 /CUMM) 43.3 *H RBC (4.70 - 6.10 /CUMM) 4.21 L Hgb (14.0 - 18.0 G/DL) 12.4 L Hct (42 - 52 %) 37.5 L MCV (80.0 - 94.0 FL) 89.2 MCH (27.0 - 31.0 PG) 29.4 RDW (11.5 - 14.5 %) 15.2 H Plt Count (130 - 400 /CUMM) 72 L MPV (7.4 - 10.4 FL) 9.2 Gran % (42.2 - 75.2 %) 96.9 H Lymphocytes % (20.5 - 51.1 %) 0.8 L Monocytes % (1.7 - 9.3 %) 2.3 Eosinophils % (0 - 5 %) 0 Basophils % (0.0 - 2.0 %) 0 L Absolute Granulocytes (1.4 - 6.5 /CUMM) 41.9 H Segmented Neutrophils (42.2 - 75.2 %) 99 H Absolute Lymphocytes (1.2 - 3.4 /CUMM) 0.3 L Monocytes (1.7 - 9.3 %) 1 L Absolute Monocytes (0.10 - 0.60 /CUMM) 1.0 H Absolute Eosinophils (0.0 - 0.7 /CUMM) 0 Absolute Basophils (0.0 - 0.2 /CUMM) 0 Platelet Estimate (ADEQUATE) DECREASED Hypochromic-Microcytic 1+ Poikilocytosis 1+ Anisocytosis 1+ Myron Cells 1+ PUBS MCHC (33.0 - 37.0 G/DL) 33.0 09/03 09/03 09/03 1440 1440 1410 Chemistry Lactic Acid (0.7 - 2.1 mmol/L) 2.0 Creatine Kinase (55 - 170 U/L) 29 L Coagulation PT (9.4 - 12.5 SEC) 18.7 H Cancelled INR (0.90 - 1.17) 1.79 H Cancelled APTT (25 - 37 SEC) 89 H 09/03 09/03 09/02 0750 0255 1425 Chemistry Sodium (137 - 145 mmol/L) 136 L Potassium (3.5 - 5.1 mmol/L) 4.8 Chloride (98 - 107 mmol/L) 100 Carbon Dioxide (22 - 30 mmol/L) 23 Anion Gap (5 - 16) 12 BUN (9 - 20 mg/dL) 110 *H Creatinine (0.7 - 1.2 mg/dL) 5.7 *H Estimated GFR (>60 ml/min) 10 L BUN/Creatinine Ratio (7 - 25 %) 19.3 Magnesium (1.6 - 2.3 mg/dL) 2.5 H Creatine Kinase (55 - 170 U/L) 46 L Coagulation APTT (25 - 37 SEC) 68 H 63 H Hematology CBC w Diff NO MAN DIFF REQ WBC (4.8 - 10.8 /CUMM) 20.0 H RBC (4.70 - 6.10 /CUMM) 3.89 L Hgb (14.0 - 18.0 G/DL) 11.3 L Hct (42 - 52 %) 34.4 L MCV (80.0 - 94.0 FL) 88.4 MCH (27.0 - 31.0 PG) 29.0 RDW (11.5 - 14.5 %) 15.0 H Plt Count (130 - 400 /CUMM) 82 L MPV (7.4 - 10.4 FL) 9.0 Gran % (42.2 - 75.2 %) 93.1 H Lymphocytes % (20.5 - 51.1 %) 3.6 L Monocytes % (1.7 - 9.3 %) 2.8 Eosinophils % (0 - 5 %) 0.3 Basophils % (0.0 - 2.0 %) 0.2 Absolute Granulocytes (1.4 - 6.5 /CUMM) 18.6 H Absolute Lymphocytes (1.2 - 3.4 /CUMM) 0.7 L Absolute Monocytes (0.10 - 0.60 /CUMM) 0.6 Absolute Eosinophils (0.0 - 0.7 /CUMM) 0.1 Absolute Basophils (0.0 - 0.2 /CUMM) 0 PUBS MCHC (33.0 - 37.0 G/DL) 32.8 L
--- NOTE | 2016-09-05 12:07 | PN- Infect Dx ---
Subjective Subjective: Afebrile on steroids. Asked to see patient because of the development of a new rash over his right thigh on September 03. 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 He feels improved from 2 days ago with decreased pain and swelling in the right lower extremity. He reportedly has decreased erythema as well. Objective Last 24 Hrs of Vital Signs/I&O Vital Signs Date Time Temp Pulse Resp B/P Pulse O2 O2 Flow FiO2 Ox Delivery Rate 09/05 1039 124/72 09/05 0840 96 Room Air 09/05 0817 97.3 90 18 124/72 94 Room Air 09/04 2255 97.6 80 18 128/80 96 Room Air 09/04 1924 95 Room Air Room Air 09/04 1828 99.3 09/04 1549 97.3 93 18 142/82 96 Room Air 09/04 1230 95 Room Air Intake & Output 09/05 1600 09/05 0800 09/05 0000 Intake Total 278.8 570.4 Output Total 225 320 Balance 53.8 250.4 Intake, IV 228.8 170.4 Intake, Oral 50 400 Output, Urine 225 320 Patient 231 lb Weight Physical Exam Other Physical Findings: He appears comfortable in no acute distress Skin petechial rash improved Lungs decreased breath sounds at the right base Heart regular rhythm with no murmur Extremities mild erythema and edema of the right thigh, tender laterally, with minimal induration; discoloration/ecchymosis over the right anterior tibial area ulceration improved, nontender to palpation; pulses 1+ and equal bilaterally Results Last 24 Hours of Lab Results: Laboratory Tests 09/05 09/05 09/04 1100 0651 2200 Chemistry Sodium (137 - 145 mmol/L) 135 L Potassium (3.5 - 5.1 mmol/L) 4.5 Chloride (98 - 107 mmol/L) 98 Carbon Dioxide (22 - 30 mmol/L) 28 Anion Gap (5 - 16) 10 BUN (9 - 20 mg/dL) 91 H Creatinine (0.7 - 1.2 mg/dL) 4.5 H Estimated GFR (>60 ml/min) 13 L BUN/Creatinine Ratio (7 - 25 %) 20.2 Magnesium (1.6 - 2.3 mg/dL) 2.6 H Coagulation PT (9.4 - 12.5 SEC) 63.2 *H INR (0.90 - 1.17) 6.13 *H APTT (25 - 37 SEC) Cancelled 107 *H 73 H Hematology CBC w Diff MAN DIFF ORDERED WBC (4.8 - 10.8 /CUMM) 33.1 *H RBC (4.70 - 6.10 /CUMM) 4.28 L Hgb (14.0 - 18.0 G/DL) 12.4 L Hct (42 - 52 %) 38.0 L MCV (80.0 - 94.0 FL) 88.6 MCH (27.0 - 31.0 PG) 29.0 RDW (11.5 - 14.5 %) 15.3 H Plt Count (130 - 400 /CUMM) 91 L MPV (7.4 - 10.4 FL) 9.6 Gran % (42.2 - 75.2 %) 93.0 H Lymphocytes % (20.5 - 51.1 %) 2.6 L Monocytes % (1.7 - 9.3 %) 4.4 Eosinophils % (0 - 5 %) 0 Basophils % (0.0 - 2.0 %) 0 L Absolute Granulocytes (1.4 - 6.5 /CUMM) 30.8 H Absolute Lymphocytes (1.2 - 3.4 /CUMM) 0.9 L Absolute Monocytes (0.10 - 0.60 /CUMM) 1.4 H Absolute Eosinophils (0.0 - 0.7 /CUMM) 0 Absolute Basophils (0.0 - 0.2 /CUMM) 0 Polychromasia 1+ Poikilocytosis 1+ Anisocytosis 2+ Ovalocytes 1+ PUBS MCHC (33.0 - 37.0 G/DL) 32.7 L 09/04 09/04 09/04 2145 1955 1215 Coagulation APTT (25 - 37 SEC) 89 H 70 H Hematology CBC w Diff Cancelled WBC Cancelled RBC Cancelled Hgb Cancelled Hct Cancelled MCV Cancelled MCH Cancelled RDW Cancelled Plt Count Cancelled MPV Cancelled PUBS MCHC Cancelled Last 24 Hours of Hemal Results: Blood cultures September 03 negative Recent Imaging Studies: CT of the right lower extremity without contrast September 03 reveals diffuse anasarca in the soft tissues of the mid and distal thigh and proximal calf, with no drainable collection Right lower extremity Doppler September 03 incomplete exam with no evidence of DVT Assessment/Plan Impression: Possible cellulitis of the right thigh perhaps secondary to his right lower extremity ulceration, with overall improvement of his right lower extremity swelling and discoloration, or to his recent skin biopsy, now on Unasyn empirically with temperatures remain normal (on steroids) and white blood cell count, while still elevated and likely secondary to steroids, decreasing. 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 Suggestion: 1. Await possible renal biopsy 2. Continue Unasyn
[2016-09-05 13:05] LABS: PTT 91 SEC (25-37)
--- NOTE | 2016-09-05 13:26 | Transfer of Care Summary ---
Hospital Course Course Hospital Course: 71-year-old very pleasant gentleman with past medical history significant for atrial fibrillation on Coumadin, hypertension, CAD status post stents, admitted 3 weeks prior to admission after significant bleeding from varicose vein requiring 2 units transfusion, current admission for worsening lower right leg pain and acute development of diffusely spreading petechial rash and shortness of breath. He was initially admitted to the general medicine floor and the following investigations were done: Fibrinogen activity 417, Fibrinogen products greater than 10, d-dimer 1789 Hepatitis panel negative, HIV nonreactive, antinuclear antibody negative, MARTIN and complement levels are normal, ESR was 36, c and p ANCA negative C-reactive protein 5.9. Venous Doppler negative for any deep vein thrombosis. Was transferred to the telemetry floor on 08/29/16 to monitor for any arrhythmias, at that time his Coumadin and aspirin was held in anticipation of renal biopsy. During this time he continued to have worsening renal failure and Raul cath was placed for dialysis. His Echo showed a reduced EF of 20%. In November 2015 his EF was 40-45 %. His CHADVASc2 score was 4 and he was deemed mod to high risk for stroke and was started on IV heparin. He had a couple of bursts of SVT and one episode of NSVT after which his metoprolol was increased. on 09/03/12 he had increasing pain and worsening erythema of his right lower extremity, CT lower extremity with IV contrast showed no evidence of osteomyelitis, diffuse anasarca and soft tissues of mid and distal thigh and proximal calf no drainable abscess collection was seen and no specific evidence of necrotizing fasciitis. He was started on IV Unasyn. On 09/04/2016 there was high suspicion of HIT due to High 4Tscore and he was started on IV Argatroban. Bilateral lower extremity doppler ruled out DVT. His biopsy was at this time deferred. Complications: Acute renal failure ? HIT Assessment/Plan: Plan: Thrombocytopenia: * Questionable HIT * on argartroban, f/up and order aPTT every 2 hours and adjust per Protocol ( copy in chart) * f/up ALAN for anti-PF4 antibodies and Serotonin release assay. Hyperbilirubinemia: * Normal AST/ ALT, no signs of hepatic encephalopathy. Unclear etiology at this time we'll continue to monitor. 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 * will repeat skin biopsy with immunofluorescence. f/up with nephro and IR when biopsy can be done. * Pulm on board * Continue 60mg PO prednisone daily * WBC 33.1 today ( sec to steroids vs infection vs HIT) on IV unasyn day 3. ID on board, appreciate recomendations. Acute renal failure with hyperkalemia * HSP vs GN vs cardiorenal * Status post Raul cath Placement, * f/up , of note Argatroban can cause falsely elevated INR * Nephrology on board appreciate recommendations. * Continue renal dialysis diet. Right lower extremity ulcer (chronic venous stasis ulcer * Wound on board, will continue to follow their rec's * Xeroform and leg elevation above his heart Atrial fibrillation/HFrEF with episode of NSVT * Coumadin and aspirin on hold in anticipation of renal biopsy * Cardiology on board, echo shows reduced EF of 25%, in November 2015 EF was approx 45% * on Toprol XL 100 mg PO daily, dose was increased sec to episodes of NSVT, continue to monitor for NSVT. * Lipitor 20 mg PO daily should be added when medically cleared * CHADVASc score is 4 putting him at mod-high risk for stroke, on Argatroban * Resume AC soon as possible after his renal biopsy. Hypertension * Toprol XL 50mg increased to 100 mg daily, pulmonology is ok with the increase in dose CAD status post stents * Off aspirin DVT prophylaxis * Argatroban CODE STATUS * DNR/DNI In the event of any changes or updates please contact his son Paulo at or [id number] Sandra who is a hospice nurse at [phone]
--- NOTE | 2016-09-05 13:26 | PN- Housestaff ---
Subjective Follow-up For: Petechial Rash ? HSP Acute renal failure Hyperkalemia Atrial fibrillation HFrEF Tele-Events Since Last Visit: Yanet golden, heart rate 83-92 bundle-branch block, PVCs no overnight events Subjective: Seen and examined patient. Says he's feeling better in terms of his breathing, states that his right lower extremity pain has improved and is able to move and he lifted his leg for me. Denied fever, chills, shortness of breath, palpitations, abdominal pain. Review of Systems Constitutional: Denies: chills, diaphoresis, fever, malaise, weakness, unexplained weight loss. Cardiovascular: Denies: chest pain, edema, orthopena, palpitations, peripheral edema, syncope. Respiratory: Reports: cough. Denies: hemoptysis, orthopnea, short of breath, sputum production, stridor, wheezing. Objective Last 24 Hrs of Vital Signs/I&O Vital Signs Date Time Temp Pulse Resp B/P Pulse O2 O2 Flow FiO2 Ox Delivery Rate 09/05 1039 124/72 09/05 0840 96 Room Air 09/05 0817 97.3 90 18 124/72 94 Room Air 09/04 2255 97.6 80 18 128/80 96 Room Air 09/04 1924 95 Room Air Room Air 09/04 1828 99.3 09/04 1549 97.3 93 18 142/82 96 Room Air Intake & Output 09/05 1600 09/05 0800 09/05 0000 Intake Total 278.8 570.4 Output Total 225 320 Balance 53.8 250.4 Intake, IV 228.8 170.4 Intake, Oral 50 400 Output, Urine 225 320 Patient 231 lb Weight Physical Exam General Appearance: Alert, Oriented X3, Cooperative, No Acute Distress Cardiovascular: Normal S1, Normal S2, irregularly irregular Lungs: Normal Air Movement Abdomen: Normal Bowel Sounds, Soft, No Tenderness, No Hepatospenomegaly, No Masses Extremities: venous stasis changes on right lower leg, purpuric type lesions stable from yesterday Current Medications: Current Medications Sig/Dagoberto Start time Last Medication Dose Route Stop Time Status Admin Acetaminophen 650 MG Q6P PRN 08/23 2345 AC 09/04 PO 1039 Albuterol Sulfate 3 ML Q4P PRN 08/30 1645 AC 09/05 INH 0839 Ampicillin Sodium/ 3,000 MG Q12 09/04 1000 AC 09/05 Sulbactam Sodium IV 1039 Sodium Chloride 100 ML Argatroban 250 MG Q19H 09/04 1700 AC 09/04 Sodium Chloride 250 ML IV 1754 Benzocaine/Menthol 1 SUKH Q4P PRN 08/31 1100 AC PO Benzonatate 100 MG TID PRN 08/25 1115 AC 08/30 PO 1652 Bisacodyl 5 MG DAILY 08/27 1358 AC 09/02 PO 1016 Cholecalciferol 1,000 IU DAILY 08/29 1046 AC 09/02 PO 1016 Folic Acid 1 MG DAILY 08/24 1000 AC 09/02 PO 1016 Guaifenesin 10 ML Q6P PRN 08/26 1530 AC 09/03 PO 0549 Heparin Sodium 25,000 UNIT Q24H 09/01 1315 DC 09/03 (Porcine) IV 1315 Sodium Chloride 500 ML Metoprolol Succinate 100 MG DAILY 09/03 1000 AC 09/05 PO 1039 Morphine Sulfate 1 MG ONCE ONE 09/05 1245 DC 09/05 IV 09/05 1246 1202 Multivitamins 1 TAB DAILY 08/24 1000 AC 09/02 PO 1016 Non-Formulary 0 SEE ADMIN CRITERIA 09/04 1645 CAN Medication ANY Omeprazole 40 MG DAILY AC 08/29 1045 AC 09/04 PO 0611 Phenol 2 SPRAY Q2P PRN 08/30 0900 AC 09/05 EXT 0632 Polyethylene Glycol 17 GM DAILY 08/27 1358 AC 09/02 PO 1015 Prednisone 60 MG DAILY 09/01 1000 AC 09/05 PO 1040 Thiamine HCl 100 MG DAILY 08/24 1000 AC 09/02 PO 1016 Last 24 Hrs of Lab/Hemal Results Last 24 Hrs of Labs/Mics: Laboratory Tests 09/05/16 1155: APTT 91 H, Heparin-induced Plt Ab Pending, Heparin-PF4 AB OD Pending, Ref Lab Test Result Pending 09/05/16 1100: APTT Cancelled 09/05/16 0651: Anion Gap 10, Estimated GFR 13 L, BUN/Creatinine Ratio 20.2, Magnesium 2.6 H, PT 63.2 *H, INR 6.13 *H, APTT 107 *H, CBC w Diff MAN DIFF ORDERED, RBC 4.28 L, MCV 88.6, MCH 29.0, RDW 15.3 H, MPV 9.6, Gran % 93.0 H, Lymphocytes % 2.6 L, Monocytes % 4.4, Eosinophils % 0, Basophils % 0 L, Absolute Granulocytes 30.8 H, Absolute Lymphocytes 0.9 L, Absolute Monocytes 1.4 H, Absolute Eosinophils 0, Absolute Basophils 0, Polychromasia 1+, Poikilocytosis 1+, Anisocytosis 2+, Ovalocytes 1+, PUBS MCHC 32.7 L 09/04/16 2200: APTT 73 H 09/04/165: CBC w Diff Cancelled, WBC Cancelled, RBC Cancelled, Hgb Cancelled, Hct Cancelled , MCV Cancelled, MCH Cancelled, RDW Cancelled, Plt Count Cancelled, MPV Cancelled, PUBS MCHC Cancelled 09/04/161954: APTT 89 H Assessment/Plan Assessment: 71-year-old gentleman with past medical history significant for atrial fibrillation on Coumadin, hypertension, CAD status post stents, recently admitted 3 weeks ago after significant bleeding from varicose vein requiring 2 units transfusion with current admission for worsening lower right leg pain and acute development of diffusely spreading petechial rash. Admitted to the general medicine floor with the following investigations were done: Fibrinogen activity 417, Fibrinogen products greater than 10, d-dimer 1789 Hepatitis panel negative, HIV nonreactive, antinuclear antibody negative, MARTIN and complement levels are normal, ESR was 36, c and p ANCA negative C-reactive protein 5.9. Venous Doppler negative for any deep vein thrombosis. Was transferred to the telemetry floor on 08/29/16 at that time his Coumadin and aspirin was going to be held in anticipation of renal biopsy and to monitor for any arrhythmias. on 09/03/12 he had increasing pain and worsening erythema of his right lower extremity, CT lower extremity with IV contrast showed no evidence of osteomyelitis, diffuse anasarca and soft tissues of mid and distal thigh and proximal calf no drainable abscess collection was seen and no specific evidence of necrotizing fasciitis. He was started on IV Unasyn. On 09/04/2016 there was high suspicion of HIT due to High 4Tscore and he was started on Argatroban. Today continues to complain of right upper thigh pain and swelling. Plan: Thrombocytopenia: * Questionable HIT * Follow-up bilateral lower extremity Doppler for DVT * on argartroban, f/up and order aPTT every 2 hours and adjust per Protocol ( copy in chart) * f/up ALAN for anti-PF4 antibodies and Serotonin release assay. Hyperbilirubinemia: Normal AST/ ALT, no signs of hepatic encephalopathy. Unclear etiology at this time we'll continue to monitor. 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 * As he not a candidate for renal biopsy at this time, will repeat skin biopsy with immunofluorescence. * Pulm on board * On 60mg PO prednisone daily * WBC 33.1 today ( sec to steroids vs infection vs HIT) on IV unasyn day 3. ID aware of pt, appreciate recomendations. Acute renal failure with hyperkalemia * HSP vs GN vs cardiorenal * Potassium levels 4.5 today * Status post Raul cath Placement, site looks clean no signs of infection * Cr of 4.5 will have dialysis today * INR 6.13 today, of note Argatroban falsely elevated INR * Nephrology on board appreciate recommendations. * Continue renal dialysis diet. Right lower extremity ulcer (chronic venous stasis ulcer * Wound on board, will continue to follow their rec's * Xeroform and leg elevation above his heart Atrial fibrillation/HFrEF with episode of NSVT * Coumadin and aspirin on hold in anticipation of renal biopsy early next week. * Cardiology on board, echo shows reduced EF of 25%, in November 2015 EF was approx 45% * on Toprol XL 100 mg PO daily, dose was increased sec to episodes of NSVT, continue to monitor for NSVT. * Lipitor 20 mg PO daily should be added when medically cleared * CHADVASc score is 4 putting him at mod-high risk for stroke, on Argatroban * Resume AC soon as possible after his renal biopsy. Hypertension * Toprol XL 50mg increased to 100 mg daily, pulmonology is ok with the increase in dose CAD status post stents * Off aspirin DVT prophylaxis * Argatroban CODE STATUS * DNR/DNI In the event of any changes or updates please contact his son Paulo at or [id number] Sandra who is a hospice nurse at [phone] Problem List: 1. HFrEF (heart failure with reduced ejection fraction) 2. Petechial rash 3. Acute kidney injury 4. 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
--- NOTE | 2016-09-05 13:30 | PN- Att Addend ---
Attending Addendum Attending Brief Note Patient seen and examined. Events over the weekend noted. Agree with the internship coordinator's note. Patient developed thrombocytopenia with a high suspicion for SHOSHANA. The heparin was stopped and given his high chads score he was switched to argotraban and we are titrating the drip now. As a result of which he cannot get his renal biopsy done today. We spoke to renal at length. 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 Over the weekend he was also started on IV Unasyn for the worry about a superimposed cellulitis. He was having severe pain in the thigh and the Doppler although done could not be completed so we have to repeat the Doppler to make sure there is no extensive thrombosis. At this point we are going to continue his prednisone, watch his platelet count closely which interestingly enough is already gone up to 90,000. We will dose the argatroban per the protocol following the PTT knowing full well that it can increase the INR. I had a long talk with Dr. Lo who is not totally convinced this is SHOSHANA given the timing and the nature of the drop in the platelet count but obviously we do not know for sure. If IR can do renal biopsy when the INR is less than 1 we will likely consider stopping Argatroban 24 hours before that. We also have a call into Dr. Goldstein from surgery to see we can repeat a skin biopsy with immunofluorescence. If the skin biopsy gets an answer, then he doesn't need the invasive renal biopsy.
--- NOTE | 2016-09-05 14:33 | ULTRASOUND REPORT ---
EXAMINATION: US TRIPLEX LOWER EXTREMITY, BILATERAL CLINICAL INFORMATION: Swelling of right thigh COMPARISON: CT of the lower extremity 09/03/2016, lower extremity ultrasound 09/03/2016 TECHNIQUE: Color-flow triplex imaging with spectral analysis and compression Doppler were performed on the bilateral lower extremities. FINDINGS: Respiratory variation, normal compression and augmented flow are noted throughout the bilateral lower extremities. The visualized common femoral vein, superficial femoral vein, profunda femoral vein, popliteal vein and midcalf peroneal and posterior tibial venous segments show no evidence of deep venous thrombosis. There is no Garcia's cyst. IMPRESSION: Normal triplex scan without evidence of deep venous thrombosis involving the bilateral lower extremities.
--- NOTE | 2016-09-05 14:43 | NUR ---
PT TRANSFERRED TO U/S ON INFORMATION SERVICES MANAGER. NO EVENTS NOTED. PTT 91. ARGATROBAN ON HOLD X 2 HRS. RESTARTING GTT AT 3.2 ML/HR OR O.5 MCG/KG/MIN. NEXT PTT TO BE DRAWN AT 1630.
[2016-09-05 14:49] LABS: PT 48.8 SEC (9.4-12.5)
[2016-09-05 16:25] VITALS: BP 144/78
[2016-09-05 17:55] LABS: ABSOLUTE BASOPHIL COUNT 0 /CUMM (0.0-0.2); ABSOLUTE EOSINOPHIL COUNT 0 /CUMM (0.0-0.7); ABSOLUTE GRANULOCYTE CT 28.2 /CUMM (1.4-6.5); ABSOLUTE LYMPH COUNT 0.3 /CUMM (1.2-3.4); ABSOLUTE MONOCYTE COUNT 0.9 /CUMM (0.10-0.60); BASOPHIL % 0 % (0.0-2.0); EOSINOPHIL % 0 % (0-5); HEMATOCRIT 33.4 % (42-52); MEAN CORPUSCULAR HGB 29.3 PG (27.0-31.0); MEAN CORPUSCULAR VOLUME 88.6 FL (80.0-94.0); PLATELET COUNT 100 /CUMM (130-400); RBC DISTRIBUTION WIDTH 15.5 % (11.5-14.5); RED BLOOD CELL CT 3.77 /CUMM (4.70-6.10); WHITE BLOOD CELL COUNT 29.4 /CUMM (4.8-10.8)
[2016-09-05 18:18] LABS: PTT 82 SEC (25-37)
--- NOTE | 2016-09-05 18:39 | NUR ---
PTT RESULT = 82. PER PROTOCOL, REDUCED RATE TO 1.6 ML/HR AND 0.25 MCK/KG/HR. IV PLACED ON HOLD FOR 2 HOURS. WILL REDRAW PTT AT 2030. RESULT RELAYED WITH DIRECTOR OF COLLECTIONS AND ARCHIVES KARYN AND RESIDENT JONE. CONFIRMED PTT REDRAW AT 2030 WITH DIRECTOR OF COLLECTIONS AND ARCHIVES AND RESIDENT WELL.
--- NOTE | 2016-09-05 20:52 | PN- Cardiology ---
Subjective Subjective: Lower extremity pain is improving but not resolved. No chest pain or palpitations. No dyspnea today. No hemoptysis. Objective Vital Signs and I&Os Vital Signs Date Time Temp Pulse Resp B/P Pulse O2 O2 Flow FiO2 Ox Delivery Rate 09/05 1625 98.1 87 18 144/78 97 Room Air 09/05 1039 124/72 09/05 0840 96 Room Air 09/05 0817 97.3 90 18 124/72 94 Room Air 09/04 2255 97.6 80 18 128/80 96 Room Air Intake & Output 09/05 1600 09/05 0800 09/05 0000 09/04 1600 09/04 0800 09/04 0000 Intake Total 600 278.8 570.4 548.8 258.8 Output Total 500 225 320 200 250 200 Balance 100 53.8 250.4 -200 298.8 58.8 Intake, IV 228.8 170.4 308.8 208.8 Intake, Oral 600 50 400 240 50 Output, Urine 500 225 320 200 250 200 Patient 231 lb Weight Physical Exam: General: no apparent distress. Alert. Laying flat. Eyes: No obvious scleral icterus. HEENT: No jugular venous distention or abnormal jugular venous pulsations. Cardiovascular: Normal intensity S1/S2. Irregular. Respiratory: no rales or ronchi Abdomen: no guarding or rebound tenderness. Musculoskeletal: No clubbing or cyanosis noted, LE edema bilaterally Skin: Rash noted, warm Neurologic: No gross focal deficits noted. Current Medications: Current Medications Sig/Dagoberto Start time Last Medication Dose Route Stop Time Status Admin Acetaminophen 650 MG Q6P PRN 08/23 2345 AC 09/04 PO 1039 Albuterol Sulfate 3 ML Q4P PRN 08/30 1645 AC 09/05 INH 0839 Ampicillin Sodium/ 3,000 MG Q12 09/04 1000 AC 09/05 Sulbactam Sodium IV 1039 Sodium Chloride 100 ML Argatroban 250 MG Q19H 09/04 1700 AC 09/04 Sodium Chloride 250 ML IV 1754 Benzocaine/Menthol 1 SUKH Q4P PRN 08/31 1100 AC PO Benzonatate 100 MG TID PRN 08/25 1115 AC 08/30 PO 1652 Bisacodyl 5 MG DAILY 08/27 1358 AC 09/02 PO 1016 Cholecalciferol 1,000 IU DAILY 08/29 1046 AC 09/02 PO 1016 Folic Acid 1 MG DAILY 08/24 1000 AC 09/02 PO 1016 Guaifenesin 10 ML Q6P PRN 08/26 1530 AC 09/03 PO 0549 Metoprolol Succinate 100 MG DAILY 09/03 1000 AC 09/05 PO 1039 Morphine Sulfate 1 MG ONCE ONE 09/05 1245 DC 09/05 IV 09/05 1246 1202 Multivitamins 1 TAB DAILY 08/24 1000 AC 09/02 PO 1016 Omeprazole 40 MG DAILY AC 08/29 1045 AC 09/04 PO 0611 Phenol 2 SPRAY Q2P PRN 08/30 0900 AC 09/05 EXT 0632 Polyethylene Glycol 17 GM DAILY 08/27 1358 AC 09/02 PO 1015 Prednisone 60 MG DAILY 09/01 1000 AC 09/05 PO 1040 Thiamine HCl 100 MG DAILY 08/24 1000 AC 09/02 PO 1016 Results Last 48 Hrs of Labs/Mics: Laboratory Tests 09/05/16 1700: Anion Gap 13, Estimated GFR 13 L, BUN/Creatinine Ratio 22.0, Phosphorus 7.4 H, APTT 82 H, CBC w Diff MAN DIFF ORDERED, RBC 3.77 L, MCV 88.6, MCH 29.3, RDW 15.5 H, MPV 10.0, Gran % 96.0 H, Lymphocytes % 1.0 L, Monocytes % 3.0, Eosinophils % 0, Basophils % 0 L, Absolute Granulocytes 28.2 H, Segmented Neutrophils 97 H, Absolute Lymphocytes 0.3 L, Lymphocytes 1 L, Monocytes 2, Absolute Monocytes 0.9 H, Absolute Eosinophils 0, Absolute Basophils 0, Platelet Estimate VERIFIED BY SMEAR, Poikilocytosis FEW, [place] Cells FEW, PUBS MCHC 33.0, Fld Total RBCs Counted 100 09/05/16 1155: PT 48.8 *H, INR 4.72 *H, APTT 91 H, Heparin-induced Plt Ab Pending, Heparin-PF4 AB OD Pending, Ref Lab Test Result Pending 09/05/16 1100: APTT Cancelled 09/05/16 0651: Anion Gap 10, Estimated GFR 13 L, BUN/Creatinine Ratio 20.2, Magnesium 2.6 H, PT 63.2 *H, INR 6.13 *H, APTT 107 *H, CBC w Diff MAN DIFF ORDERED, RBC 4.28 L, MCV 88.6, MCH 29.0, RDW 15.3 H, MPV 9.6, Gran % 93.0 H, Lymphocytes % 2.6 L, Monocytes % 4.4, Eosinophils % 0, Basophils % 0 L, Absolute Granulocytes 30.8 H, Absolute Lymphocytes 0.9 L, Absolute Monocytes 1.4 H, Absolute Eosinophils 0, Absolute Basophils 0, Polychromasia 1+, Poikilocytosis 1+, Anisocytosis 2+, Ovalocytes 1+, PUBS MCHC 32.7 L 09/04/16 2200: APTT 73 H 09/04/16 2145: CBC w Diff Cancelled, WBC Cancelled, RBC Cancelled, Hgb Cancelled, Hct Cancelled , MCV Cancelled, MCH Cancelled, RDW Cancelled, Plt Count Cancelled, MPV Cancelled, PUBS MCHC Cancelled 09/04/16 1955: APTT 89 H 09/04/16 1215: APTT 70 H 09/04/16 0410: PT 19.5 H, INR 1.87 H 09/04/16 0410: Anion Gap 14, Estimated GFR 16 L, BUN/Creatinine Ratio 16.2, Total Bilirubin 2.7 H, Direct Bilirubin 1.3 H, AST 15 L, ALT 38, Alkaline Phosphatase 98, Total Protein 5.1 L, Albumin 2.1 L, APTT 45 H, CBC w Diff MAN DIFF ORDERED, RBC 4.21 L, MCV 89.2, MCH 29.4, RDW 15.2 H, MPV 9.2, Gran % 96.9 H, Lymphocytes % 0.8 L, Monocytes % 2.3, Eosinophils % 0, Basophils % 0 L, Absolute Granulocytes 41.9 H, Segmented Neutrophils 99 H, Absolute Lymphocytes 0.3 L, Monocytes 1 L, Absolute Monocytes 1.0 H, Absolute Eosinophils 0, Absolute Basophils 0, Platelet Estimate DECREASED, Hypochromic-Microcytic 1+, Poikilocytosis 1+, Anisocytosis 1+, Myron Cells 1+, PUBS MCHC 33.0 Recent Imaging Studies: Telemetry tracings were personally reviewed and shows afib without recurrent NSVT runs Venous Doppler IMPRESSION: Normal triplex scan without evidence of deep venous thrombosis involving the bilateral lower extremities. Assessment/Plan Assessment/Plan 1. 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 Persistent atrial fibrillation on anticoagulation with Coumadin on hold 3. History of coronary artery disease/prior myocardial infarction with mild to moderate left ventricular dysfunction by previous noninvasive imaging, now with severe LV dysfunction 4. NSVT on telemetry 5. Small bilateral pleural effusions 6. Chronic left bundle branch block 7. Hx HTN 8. Venous insufficiency 9. Thrombocytopenia with concern for HIT, now on Argatroban Remains in afib with no recurrent NSVT overnight. Not clear if the thrombocytopenia was due to HIT but is on Argatroban for now pending lab studies and Hematology is on board. Holding plan for Renal biopsy for now, planned for possible skin biopsy which would carry a much lower bleeding risk. Continue on the higher dose Toprol XL 100 mg daily. Recommend adding low-dose Lipitor 20 mg by mouth daily when medically cleared. Resume daily ASA when medically cleared. Despite the cardiomyopathy he is not a candidate for addition of LISETH-I at this time. He remains hemodynamically stable. Jonh Stanley MD [facility] Continue telemetry? Yes
[2016-09-05 22:16] LABS: PTT 48 SEC (25-37)
[2016-09-06 00:05] VITALS: BP 12/78
[2016-09-06 00:55] LABS: PTT 53 SEC (25-37)
--- NOTE | 2016-09-06 01:12 | NUR ---
@2230 PTT 48 PER AGATROBAN PROTOCOL INCREASE INFUSION RATE BY 20%. CURRENT RATE 0.25MCG/KG/MIN=1.6ML/HR, DISCUSSED WITH PHARMACIST AND RATE CHANGED TO 0.3MCG/KG/MIN=1.9ML/HR. NEXT PTT 2 HOURS. @0100 PTT 53, PER AGATROBAN PROTOCOL INCREASE INFUSION RATE BY 20%. CURRENT RATE 0.3MCG/KG/MIN=1.9ML/HR, DISCUSSED WITH PHARMACIST AND RATE CHANGED TO 0.36MCG/KG/MIN=2.3ML/HR. NEXT PTT IN 2 HOURS.
[2016-09-06 03:42] LABS: ABSOLUTE BASOPHIL COUNT 0 /CUMM (0.0-0.2); ABSOLUTE EOSINOPHIL COUNT 0 /CUMM (0.0-0.7); ABSOLUTE GRANULOCYTE CT 38.3 /CUMM (1.4-6.5); ABSOLUTE LYMPH COUNT 0.6 /CUMM (1.2-3.4); ABSOLUTE MONOCYTE COUNT 2.5 /CUMM (0.10-0.60); BASOPHIL % 0 % (0.0-2.0); EOSINOPHIL % 0 % (0-5); GRANULOCYTE % 92.5 % (42.2-75.2); HEMATOCRIT 35.3 % (42-52); MEAN CORPUSCULAR HGB CONC 32.5 G/DL (33.0-37.0); MEAN CORPUSCULAR VOLUME 89.2 FL (80.0-94.0); MEAN PLATELET VOLUME 9.1 FL (7.4-10.4); PLATELET COUNT 114 /CUMM (130-400); RBC DISTRIBUTION WIDTH 15.3 % (11.5-14.5); RED BLOOD CELL CT 3.96 /CUMM (4.70-6.10)
[2016-09-06 03:46] LABS: PT 28.8 SEC (9.4-12.5); PTT 47 SEC (25-37)
[2016-09-06 03:56] LABS: WHITE BLOOD CELL COUNT 41.4 /CUMM (4.8-10.8)
--- NOTE | 2016-09-06 04:56 | NUR ---
WORKED WITH PHARMACIST TO CALCULATE NEW RATE. PTT- 47. PER ARGATROBAN PROTOCOL INCREASED BY 20%. CURRENT RATE 0.36MCG/KG/MIN=2.3ML/H. RATE CHANGED TO 0.43 MCG/ML/HR=2.7ML/HR. NEXT PTT 0630 AM.
--- NOTE | 2016-09-06 05:00 | NUR ---
CRITICAL VALUE- WBC-41.4. MD CRENSHAW MADE AWARE. NNO AT THIS TIME
[2016-09-06 06:00] VITALS: BP 130/72
--- NOTE | 2016-09-06 07:04 | PN- CRCU ---
Subjective HPI/Critical Care Issues: pt seen and examined known to our service during this admission upgraded to ICU for closer monitoring given argatroban drip for presumed HIT on room air leukocytosis worsened legs wrapped in bandages no cp no n/v/d/c creatinine from 1.7 to 2.8 INR 2.77 comfortable otherwise Objective Current Medications: Current Medications Sig/Dagoberto Start time Last Medication Dose Route Stop Time Status Admin Acetaminophen 650 MG .STK-MED ONE 09/05 2156 DC PO 09/05 215 Acetaminophen 650 MG Q6P PRN 08/23 2345 AC 09/05 PO 2259 Albuterol Sulfate 3 ML Q4P PRN 08/30 1645 AC 09/05 INH 0839 Ampicillin Sodium/ 3,000 MG Q12 09/04 1000 AC 09/05 Sulbactam Sodium IV 2251 Sodium Chloride 100 ML Argatroban 250 MG Q24H 09/05 2315 AC 09/06 Sodium Chloride 250 ML IV 0439 Argatroban 250 MG Q19H 09/04 1700 DC 09/04 Sodium Chloride 250 ML IV 1754 Benzocaine/Menthol 1 SUKH Q4P PRN 08/31 1100 AC PO Benzonatate 100 MG TID PRN 08/25 1115 AC 08/30 PO 1652 Bisacodyl 5 MG DAILY 08/27 1358 AC 09/05 PO 2258 Cholecalciferol 1,000 IU DAILY 08/29 1046 AC 09/02 PO 1016 Folic Acid 1 MG DAILY 08/24 1000 AC 09/02 PO 1016 Guaifenesin 10 ML Q6P PRN 08/26 1530 AC 09/03 PO 0549 Metoprolol Succinate 100 MG DAILY 09/03 1000 AC 09/05 PO 1039 Morphine Sulfate 1 MG ONCE ONE 09/05 1245 DC 09/05 IV 09/05 1246 1202 Multivitamins 1 TAB DAILY 08/24 1000 AC 09/02 PO 1016 Omeprazole 40 MG DAILY AC 08/29 1045 AC 09/06 PO 0614 Phenol 2 SPRAY Q2P PRN 08/30 0900 AC 09/06 EXT 0048 Polyethylene Glycol 17 GM DAILY 08/27 1358 AC 09/02 PO 1015 Prednisone 60 MG DAILY 09/01 1000 AC 09/05 PO 1040 Thiamine HCl 100 MG DAILY 08/24 1000 AC 09/02 PO 1016 Vital Signs & I&O Last 24 Hrs of Vitals and I&O: Vital Signs Date Time Temp Pulse Resp B/P Pulse O2 O2 Flow FiO2 Ox Delivery Rate 09/06 06 98.0 90 20 130/72 98 Room Air 09/06 0005 96.5 92 14 12 95 Room Air 09/06 0000 95 Room Air 09/05 2100 94 Room Air Room Air 09/05 1625 98.1 87 18 144/78 97 Room Air 09/05 1039 124/72 09/05 0840 96 Room Air 09/05 0817 97.3 90 18 124/72 94 Room Air Intake & Output 09/06 0800 09/06 0000 09/05 1600 Intake Total 134.6 533.2 600 Output Total 200 150 500 Balance -65.4 383.2 100 Intake, IV 14.6 133.2 Intake, Oral 120 400 600 Number 0 Bowel Movements Output, Urine 200 150 500 Exam Other Physical Findings: gen awake and alert heent poor dentition cvs s1, s2 lungs ctab abd soft bs+ ext chronic venous changes, dressings intact Results Last 24 Hrs of Lab Results: Laboratory Tests 09/06/16 0625: APTT Pending 09/06/16 0600: PT Cancelled, INR Cancelled 09/06/16 0300: PT 28.8 H, INR 2.77 H, APTT 47 H 09/06/16 0300: Anion Gap 8, Estimated GFR 22 L, BUN/Creatinine Ratio 18.9, Magnesium 2.2, Total Bilirubin 1.4 H, Direct Bilirubin 0.8 H, AST 22, ALT 36, Alkaline Phosphatase 107, Total Protein 4.8 L, Albumin 2.0 L, APTT Cancelled, CBC w Diff MAN DIFF ORDERED, RBC 3.96 L, MCV 89.2, MCH 29.0, RDW 15.3 H, MPV 9.1, Gran % 92.5 H, Lymphocytes % 1.4 L, Monocytes % 6.1, Eosinophils % 0, Basophils % 0 L, Absolute Granulocytes 38.3 H, Segmented Neutrophils 92 H, Absolute Lymphocytes 0.6 L, Lymphocytes 1 L, Monocytes 7, Absolute Monocytes 2.5 H, Absolute Eosinophils 0, Absolute Basophils 0, Nucleated RBCs 1 H, Platelet Estimate ADEQUATE, Polychromasia 1+, Hypochromic-Microcytic 1+, Poikilocytosis 3+, Ovalocytes 1+, Mystic Cells 2+, Elliptocytes FEW, PUBS MCHC 32.5 L, Fld Total RBCs Counted 100 09/06/16 0030: APTT 53 H 09/05/16 2043: Anion Gap 10, Estimated GFR 40 L, BUN/Creatinine Ratio 18.8, APTT 48 H 09/05/16 1700: Anion Gap 13, Estimated GFR 13 L, BUN/Creatinine Ratio 22.0, Phosphorus 7.4 H, APTT 82 H, CBC w Diff MAN DIFF ORDERED, RBC 3.77 L, MCV 88.6, MCH 29.3, RDW 15.5 H, MPV 10.0, Gran % 96.0 H, Lymphocytes % 1.0 L, Monocytes % 3.0, Eosinophils % 0, Basophils % 0 L, Absolute Granulocytes 28.2 H, Segmented Neutrophils 97 H, Absolute Lymphocytes 0.3 L, Lymphocytes 1 L, Monocytes 2, Absolute Monocytes 0.9 H, Absolute Eosinophils 0, Absolute Basophils 0, Platelet Estimate VERIFIED BY SMEAR, Poikilocytosis FEW, Myron Cells FEW, PUBS MCHC 33.0, Fld Total RBCs Counted 100 09/05/16 1155: PT 48.8 *H, INR 4.72 *H, APTT 91 H, Heparin-induced Plt Ab Pending, Heparin-PF4 AB OD Pending, Ref Lab Test Result Pending 09/05/16 1100: APTT Cancelled Impression/Plan Impression/Plan Impression/Plan: Impression 71 year old man - lung nodules, atelectasis, mild nonspecific groung glass opacities - renal failure, rash, consideration for vasculitis - working diagnosis of HIT, on argatrobain Plan Respiratory - stable, no hemoptysis at this time - monitor ID - f/u ID recommendations, worsened leukocytosis - on Unasyn CVS - monitor hemodynamics Heme - possible HIT, on argatroban per protocol - f/u hem/onc recommendations Metabolic - f/u nephrology - ins/outs - renal bx cannot be performed given argatroban and elevated INR, consideration to repeat a skin bx when INR is less with fluorescence, will follow up renal recommendations - on steroids Alimentary - renal diet Neuro - no acute issues DVT prophylaxis at all times (on Agragtroban) TTS 40 min
--- NOTE | 2016-09-06 08:05 | PN- Resident CRCU ---
Subjective HPI/CRCU Issues: Pt was transferred to ICU for close nursing monitoring while on argatroban drip. When I saw the patient this morning, he was lying in bed, with multiple complaints, mainly chest congestion and cough productive of thick sputum, 4/10 pain in the right leg. He also reports frustration with his current medical state and the uncertainty of his diagnosis. He does not have a good recollection on what he has been told or what procedures have been done. Dr. Amezcua has been in touch with IR and nephrology regarding pursuing renal biopsy. Dr. High would like the drip to be off for 24 hours prior to renal biopsy. His INR currently 2.77, which could be falsely elevated due to argratroban. From Dr. Plata's (IR) persepective, he is ready to do the biopsy anytime, even with current INR (although they would prefer INR of 1.5). However, Dr. Morejon is hesitant to do it if INR is more than 1.1. Dr. Amezcua is in touch with Dr. Celestin from nephrology and will inform us of further plan. In the meantime, we are also coordinating skin biopsy with surgery. Objective Vital Signs & I&O Last 8 Hrs of Vitals and I&O: Intake & Output 09/06 1600 09/06 0800 09/06 0000 09/05 1600 09/05 0800 09/05 0000 Intake Total 134.6 533.2 600 278.8 570.4 Output Total 200 150 500 225 320 Balance -65.4 383.2 100 53.8 250.4 Intake, IV 14.6 133.2 228.8 170.4 Intake, Oral 120 400 600 50 400 Number 0 Bowel Movements Output, Urine 200 150 500 225 320 Patient 104.893 kg Weight Laboratory Tests 09/06/16 0840: APTT 57 H 09/06/16 0625: APTT 49 H 09/06/16 0600: PT Cancelled, INR Cancelled 09/06/16 0300: PT 28.8 H, INR 2.77 H, APTT 47 H 09/06/16 0300: Anion Gap 8, Estimated GFR 22 L, BUN/Creatinine Ratio 18.9, Magnesium 2.2, Total Bilirubin 1.4 H, Direct Bilirubin 0.8 H, AST 22, ALT 36, Alkaline Phosphatase 107, Total Protein 4.8 L, Albumin 2.0 L, APTT Cancelled, CBC w Diff MAN DIFF ORDERED, RBC 3.96 L, MCV 89.2, MCH 29.0, RDW 15.3 H, MPV 9.1, Gran % 92.5 H, Lymphocytes % 1.4 L, Monocytes % 6.1, Eosinophils % 0, Basophils % 0 L, Absolute Granulocytes 38.3 H, Segmented Neutrophils 92 H, Absolute Lymphocytes 0.6 L, Lymphocytes 1 L, Monocytes 7, Absolute Monocytes 2.5 H, Absolute Eosinophils 0, Absolute Basophils 0, Nucleated RBCs 1 H, Platelet Estimate ADEQUATE, Polychromasia 1+, Hypochromic-Microcytic 1+, Poikilocytosis 3+, Ovalocytes 1+, Myron Cells 2+, Elliptocytes FEW, PUBS MCHC 32.5 L, Fld Total RBCs Counted 100 09/06/16 0030: APTT 53 H 09/05/16 2043: Anion Gap 10, Estimated GFR 40 L, BUN/Creatinine Ratio 18.8, APTT 48 H 09/05/16 1700: Anion Gap 13, Estimated GFR 13 L, BUN/Creatinine Ratio 22.0, Phosphorus 7.4 H, APTT 82 H, CBC w Diff MAN DIFF ORDERED, RBC 3.77 L, MCV 88.6, MCH 29.3, RDW 15.5 H, MPV 10.0, Gran % 96.0 H, Lymphocytes % 1.0 L, Monocytes % 3.0, Eosinophils % 0, Basophils % 0 L, Absolute Granulocytes 28.2 H, Segmented Neutrophils 97 H, Absolute Lymphocytes 0.3 L, Lymphocytes 1 L, Monocytes 2, Absolute Monocytes 0.9 H, Absolute Eosinophils 0, Absolute Basophils 0, Platelet Estimate VERIFIED BY SMEAR, Poikilocytosis FEW, [place] Cells FEW, PUBS MCHC 33.0, Fld Total RBCs Counted 100 09/05/16 1155: PT 48.8 *H, INR 4.72 *H, APTT 91 H, Heparin-induced Plt Ab Pending, Heparin-PF4 AB OD Pending, Ref Lab Test Result Pending Vital Signs Date Time Temp Pulse Resp B/P Pulse O2 O2 Flow FiO2 Ox Delivery Rate 09/06 0816 95 Room Air 09/06 0600 98.0 90 20 130/72 98 Room Air 09/06 0005 96.5 92 14 95 Room Air 09/06 0000 95 Room Air 09/05 2100 94 Room Air Room Air 09/05 1625 98.1 87 18 144/78 97 Room Air 09/05 1039 124/72 Exam General Appearance: alert Head: normal appearance Respiratory: normal breath sounds Cardiovascular: irregular rate Gastrointestinal: normal bowel sounds, soft, non-tender Extremities: right calf wrapped in bandage, circumferential purpura noted on RLE , petechial rash on LLE , both legs tender to palpation Current Medications: Current Medications Sig/Dagoberto Start time Last Medication Dose Route Stop Time Status Admin Acetaminophen 650 MG .STK-MED ONE 09/05 2156 DC PO 09/05 215 Acetaminophen 650 MG Q6P PRN 08/23 2345 AC 09/05 PO 2259 Albuterol Sulfate 3 ML Q4P PRN 08/30 1645 AC 09/06 INH 0813 Ampicillin Sodium/ 3,000 MG Q12 09/04 1000 AC 09/06 Sulbactam Sodium IV 1022 Sodium Chloride 100 ML Argatroban 250 MG Q24H 09/05 2315 AC 09/06 Sodium Chloride 250 ML IV 0439 Argatroban 250 MG Q19H 09/04 1700 DC 09/04 Sodium Chloride 250 ML IV 1754 Benzocaine/Menthol 1 SUKH Q4P PRN 08/31 1100 AC PO Benzonatate 100 MG TID PRN 08/25 1115 AC 08/30 PO 1652 Bisacodyl 5 MG DAILY 08/27 1358 AC 09/06 PO 1024 Cholecalciferol 1,000 IU DAILY 08/29 1046 AC 09/06 PO 1023 Folic Acid 1 MG DAILY 08/24 1000 AC 09/06 PO 1023 Guaifenesin 10 ML Q6P PRN 08/26 1530 AC 09/03 PO 0549 Metoprolol Succinate 100 MG DAILY 09/03 1000 AC 09/06 PO 1023 Morphine Sulfate 1 MG ONCE ONE 09/05 1245 DC 09/05 IV 09/05 1246 1202 Multivitamins 1 TAB DAILY 08/24 1000 AC 09/06 PO 1023 Omeprazole 40 MG DAILY AC 08/29 1045 AC 09/06 PO 0614 Phenol 2 SPRAY Q2P PRN 08/30 0900 AC 09/06 EXT 0048 Polyethylene Glycol 17 GM DAILY 08/27 1358 AC 09/06 PO 1022 Prednisone 60 MG DAILY 09/01 1000 AC 09/06 PO 1023 Thiamine HCl 100 MG DAILY 08/24 1000 AC 09/06 PO 1023 Impression/Plan Impression/Problem List Impression: 71-year-old man with PMH of atrial fibrillation on Coumadin, CAD status post stents, with varicose veins, 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 Pt was initially admitted to general medicine. Skin biopsy on 08/26/[address] 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 He also developed CHARLES ( with BUN/cr up to 124/7.4 , was 27/1.7 on admission) and hyperkalemia (up to 6.3 ). 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 His K and kidney functions has improved with dialysis. After steroids was started, developed leukocytosis with WBC up to 43.3 (normal wbc on admission), afebrile (although on steroids) with no left shift, and did not improve with unasyn for presumable RLE cellulitis. He was transferred to telemetry from general medicine for close cardiac monitoring while aspirin and warfarin were held pending renal biopsy. Renal biopsy was delayed initially due to supratherapeutic INR (pt on warfarin for afib) for which renal did not feel comfortable reversing with FFP. So heparin started while warfarin held. On the day renal biopsy was planned, there was a concern that he might have developed heparin induced thrombocytopenia ( highest 186, lowest 72), with a high probability pre-test likelihood based on 4T score, so heparin drip was subsequently stopped, and argatroban drip started. Of note, pt had episode of NSVT on telemetry, for which his metoprolol dose was increased to 100 without subsequent recurrence. Pt was transferred to ICU for close nursing monitoring while on argatroban drip. Active issues include: # Possible Henoch-Schnlein purpura on prednisone and dialysis - Awaiting plan for renal biopsy and repeat skin biopsy with fluorescence study. # Possible HIT, on argatroban drip pending biopsy. Platelet improving # Leukocytosis, with RLE pain, possible cellulits, on Unasyn # Atrial fibrillation (was on warfarin at home, currently being held), on argatroban drip # Episode of NSVT with no reccurent epidosed after increasing metoprolol # Hx of CAD (aspirin on hold pending biopsy, await starting statin) Hematology/Renal # Henoch-Schnlein purpura - Diffuse petechial rash, first noted one week prior to admission, and persistent ecchymosis, edema and mild discomfort of the right leg - Subsequently developed CHARLES and hyperkalemia with microscopic hematuria, with improvement of creatinine due to dialysis - Cough with hemoptysis - Elevated ESR 36, CRP >15, RF 13.9 - Negative hepatitis panel, HIV, MARTIN, ANCA, cryoglobulin. Normal C3 and C4. * Pending renal biopsy by IR pending nephrology decision. Needs to be off argatroban for 24 hours. * Coordinating skin biopsy with fluorescence with surgery (Dr. Bonilla) * Nephrology on board * Dialysis started * Hematology on board (Dr. High) * on 60mg PO prednisone daily * Pulm on board # Possible HIT - Platelet down from highest 186 --> lowest 72 - Received heparin from 09/01/16 to 09/04/16 - 4T high probability for HIT * Follow up heparin-induced Plt Ab, Heparin-PF4 AB, serotonin release assay * Monitor CBC daily * Monitor for thombosis closely Respiratory # Hemoptysis with cough - Due to warfarin use? * Pulm consult appreciated Cardiac # Atrial fibrillation on coumadin - CHADVASc score is 4 putting him at mod-high risk for stroke, on ArgatrobanCoumadin on hold due to possible renal biopsy * heparin drip discontinued due to possible HIT * On argatroban drip. Monitor ptt and adjust dose as protocol * daily INR (might be falsely elevated due to argatroban drip) # Hx of CAD/prior myocardial infarction with mild to moderate left ventricular dysfunction by previous noninvasive imaging, now with severe LV dysfunction - Despite the cardiomyopathy he is not a candidate for addition of LISETH-I at this time * Restart aspirin 81 mg when medically cleared * Cardio recommend adding low-dose Lipitor 20 mg by mouth daily when medically cleared # NSVT on telemetry, chronic LBBB * Increased metoprolol to Toprol XL 100 mg daily # Hx of HTN * On toprol ID # Leukocytosis up to 43.3, afebrile without bands, on steroids # Possible Cellulitis of right thigh secondary to lower extremity ulceration - X-ray of the right tibia/fibula negative. - Doppler of the right lower extremity negative * ID input appreciated * Unasyn 3000 q12 started on 09/04/16 pm. WBC continues to be elevated despite being on abx. Now day # 3 of abx * Wound consult appreciated * Monitor WBC * Xeroform and leg elevation above his heart DVT ppx: argatroban DNR/DNI In the event of any changes or updates please contact his son Paulo at [phone] or [id number] Sandra who is a hospice nurse at [phone] Problem List: 1. 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
[2016-09-06 09:02] LABS: PTT 49 SEC (25-37)
[2016-09-06 09:16] LABS: PTT 57 SEC (25-37)
[2016-09-06 11:09] LABS: PTT 52 SEC (25-37)
[2016-09-06 12:21] LABS: HEPARIN INDUCED PLATELET AB NEGATIVE (NEGATIVE)
--- NOTE | 2016-09-06 13:43 | PN- Att Addend ---
Attending Addendum Attending Brief Note Patient seen and examined. 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 He is frustrated about being here and frustrated that he's we don't have a diagnosis. He still has cough with thick white sputum. I tried to explain to him at length that the suspected diagnosis is Henoch-Schnlein purpura but the only way to confirm this is a renal biopsy and we are trying to decrease the risks associated with that. Meanwhile we are treating him empirically with IV Argatroban for suspected SHOSHANA. His serotonin release assay and platelet factor 4 antibody tests are pending. I will need to talk to hematology given that his platelet count is come back up whether this is truly SHOSHANA. Surgery is willing to do the skin biopsy again as long as we can confirm with pathology, everything that's needed for the immunofluorescence. We will also coordinate with renal and hematology regarding when to stop. Argatroban and the ideal INR level to do this renal biopsy. In the meantime we are going to continue prednisone at 60 mg a day, continue the Unasyn for the superimposed cellulitis, dialysis as needed and follow closely.
[2016-09-06 14:10] LABS: PTT 51 SEC (25-37)
[2016-09-06 14:52] LABS: PTT 56 SEC (25-37)
[2016-09-06 16:00] VITALS: BP 128/76
[2016-09-06 17:14] LABS: PTT 56 SEC (25-37)
[2016-09-06 19:13] LABS: ABSOLUTE BASOPHIL COUNT 0 /CUMM (0.0-0.2); ABSOLUTE EOSINOPHIL COUNT 0 /CUMM (0.0-0.7); ABSOLUTE GRANULOCYTE CT 28.6 /CUMM (1.4-6.5); ABSOLUTE LYMPH COUNT 0.5 /CUMM (1.2-3.4); ABSOLUTE MONOCYTE COUNT 0.9 /CUMM (0.10-0.60); BASOPHIL % 0 % (0.0-2.0); EOSINOPHIL % 0 % (0-5); GRANULOCYTE % 95.2 % (42.2-75.2); HEMATOCRIT 36.1 % (42-52); MEAN CORPUSCULAR HGB CONC 32.7 G/DL (33.0-37.0); MEAN CORPUSCULAR VOLUME 88.5 FL (80.0-94.0); MEAN PLATELET VOLUME 8.8 FL (7.4-10.4); PLATELET COUNT 134 /CUMM (130-400); RBC DISTRIBUTION WIDTH 15.4 % (11.5-14.5); RED BLOOD CELL CT 4.08 /CUMM (4.70-6.10)
[2016-09-06 19:25] LABS: PTT 64 SEC (25-37)
[2016-09-06 21:22] LABS: PTT 51 SEC (25-37)
[2016-09-07] VITALS: BP 130/80
[2016-09-07 01:12] LABS: PTT 61 SEC (25-37)
[2016-09-07 04:19] LABS: ABSOLUTE BASOPHIL COUNT 0 /CUMM (0.0-0.2); ABSOLUTE EOSINOPHIL COUNT 0 /CUMM (0.0-0.7); ABSOLUTE GRANULOCYTE CT 27.4 /CUMM (1.4-6.5); ABSOLUTE LYMPH COUNT 0.6 /CUMM (1.2-3.4); ABSOLUTE MONOCYTE COUNT 2.3 /CUMM (0.10-0.60); BASOPHIL % 0 % (0.0-2.0); EOSINOPHIL % 0 % (0-5); GRANULOCYTE % 90.6 % (42.2-75.2); HEMATOCRIT 34.5 % (42-52); MEAN CORPUSCULAR HGB CONC 32.8 G/DL (33.0-37.0); MEAN CORPUSCULAR VOLUME 88.3 FL (80.0-94.0); MEAN PLATELET VOLUME 8.9 FL (7.4-10.4); PLATELET COUNT 136 /CUMM (130-400); RBC DISTRIBUTION WIDTH 15.5 % (11.5-14.5); RED BLOOD CELL CT 3.91 /CUMM (4.70-6.10)
[2016-09-07 04:32] LABS: PT 32.1 SEC (9.4-12.5); PTT 57 SEC (25-37)
[2016-09-07 04:41] LABS: WHITE BLOOD CELL COUNT 30.3 /CUMM (4.8-10.8)
[2016-09-07 06:33] VITALS: BP 140/88
--- NOTE | 2016-09-07 06:34 | NUR ---
0330 PTT- 57. ARGATROBAN RATE CHANGED TO 8.6 ML/H, 1.37 MCG/KG. RECHECKED WITH PHARMACIST. PT A/O. RA. DRESSING CHANGED TO RLE. SUPPOSITORY GIVEN PER PT REQUEST , RESULTS PENDING. NO C/O PAIN.
--- NOTE | 2016-09-07 06:59 | PN- Housestaff ---
RUDOLPH BAKER,KARYN 09/07/16 0658: Subjective Follow-up For: HSP Afib HIT Tele-Events Since Last Visit: A fib 85-94 Subjective: Pt was still complaining of 4/10 RLE pain. He feels compacted, given suppository earlier today, had small BM. If no further BM, will give another one. Complains of mild epigastric discomfort. No plan for dialysis today. Plan for skin biopsy today, coordinating this with Dr. Bonilla. WBC 30.3, improved from yesterday morning. Heparin induced platelet ab negative and heparin-pf4 ab od 0.013 (negative). Serotonin release assay pending. Review of Systems Constitutional: Reports: see HPI. Objective Last 24 Hrs of Vital Signs/I&O Vital Signs Date Time Temp Pulse Resp B/P Pulse O2 O2 Flow FiO2 Ox Delivery Rate 09/07 08 96.3 67 12 152/88 96 Room Air 09/07 0633 97.7 90 14 140/88 98 Room Air 09/07 0121 96 Room Air 09/07 0000 96.9 91 18 130/80 96 Room Air 09/07 0000 96 Room Air 09/06 1602 95 Room Air 09/06 1600 97.2 82 22 128/76 93 Room Air Intake & Output 09/07 1600 09/07 0800 09/07 0000 Intake Total 300 346 Output Total 350 200 Balance -50 146 Intake, IV 60 226 Intake, Oral 240 120 Number 1 Bowel Movements Output, Urine 350 200 Patient 101.775 kg Weight Physical Exam General Appearance: Alert, Oriented X3, Cooperative, No Acute Distress Skin: diffuse petechiae and purpura, mostly in RLE and LLE HEENT: Atraumatic Cardiovascular: irregular rate Lungs: Clear to Auscultation, Normal Air Movement Abdomen: Normal Bowel Sounds, Soft, No Tenderness Neurological: Normal Speech Extremities: RLE wrapped Current Medications: Current Medications Sig/Dagoberto Start time Last Medication Dose Route Stop Time Status Admin Acetaminophen 650 MG Q6P PRN 08/23 2345 AC 09/07 PO 0232 Albuterol Sulfate 3 ML Q4P PRN 08/30 1645 AC 09/07 INH 0102 Ampicillin Sodium/ 3,000 MG Q12 09/04 1000 AC 09/07 Sulbactam Sodium IV 0921 Sodium Chloride 100 ML Argatroban 250 MG Q24H 03/13 2315 AC 09/07 Sodium Chloride 250 ML IV 0454 Benzocaine/Menthol 1 SUKH Q4P PRN 08/31 1100 AC PO Benzonatate 100 MG TID PRN 08/25 1115 AC 08/30 PO 1652 Bisacodyl 10 MG ONCE ONE 09/07 0530 DC 09/07 OR 09/07 0531 0519 Bisacodyl 5 MG DAILY 08/27 1358 AC 09/07 PO 0921 Cholecalciferol 1,000 IU DAILY 08/29 1046 AC 09/07 PO 0921 Folic Acid 1 MG DAILY 08/24 1000 AC 09/07 PO 0921 Guaifenesin 10 ML Q6P PRN 08/26 1530 AC 09/03 PO 0549 Metoprolol Succinate 100 MG DAILY 09/03 1000 AC 09/07 PO 0921 Multivitamins 1 TAB DAILY 08/24 1000 AC 09/07 PO 0921 Omeprazole 40 MG DAILY AC 08/29 1045 AC 09/07 PO 0603 Phenol 2 SPRAY Q2P PRN 08/30 0900 AC 09/06 EXT 0048 Polyethylene Glycol 17 GM DAILY 08/27 1358 AC 09/07 PO 0922 Prednisone 60 MG DAILY 09/01 1000 AC 09/07 PO 0921 Thiamine HCl 100 MG DAILY 08/24 1000 AC 09/07 PO 0921 Last 24 Hrs of Lab/Hemal Results Last 24 Hrs of Labs/Mics: Laboratory Tests 09/07/16 0850: APTT 72 H 09/07/16 0655: APTT 59 H 09/07/16 0600: PT Cancelled, INR Cancelled 09/07/16 0345: Anion Gap 11, Estimated GFR 18 L, Glucose 171 H, Calcium 8.9, Phosphorus 6.4 H, Magnesium 2.4 H, Total Bilirubin 1.3, AST 24, ALT 47, Albumin 2.0 L, PT 32.1 H, INR 3.09 H, APTT 57 H, CBC w Diff MAN DIFF ORDERED, RBC 3.91 L, MCV 88.3, MCH 29.0, RDW 15.5 H, MPV 8.9, Gran % 90.6 H, Lymphocytes % 1.9 L, Monocytes % 7.5, Eosinophils % 0, Basophils % 0 L, Absolute Granulocytes 27.4 H, Segmented Neutrophils 87 H, Band Neutrophils 2, Absolute Lymphocytes 0.6 L, Lymphocytes 4 L, Monocytes 7, Absolute Monocytes 2.3 H, Absolute Eosinophils 0 , Absolute Basophils 0, Platelet Estimate ADEQUATE, Hypochromic-Microcytic 1+, PUBS MCHC 32.8 L, Fld Total RBCs Counted 100 09/07/16 0035: APTT 61 H 09/06/16 2010: APTT 51 H 09/06/16 1830: Anion Gap 11, Estimated GFR 19 L, Glucose 185 H, Calcium 8.4, Phosphorus 6.0 H, Magnesium 2.3, Total Bilirubin 1.3, AST 32, ALT 44, Albumin 2.1 L, APTT 64 H, CBC w Diff NO MAN DIFF REQ, RBC 4.08 L, MCV 88.5, MCH 29.0, RDW 15.4 H, MPV 8.8, Gran % 95.2 H, Lymphocytes % 1.7 L, Monocytes % 3.1, Eosinophils % 0, Basophils % 0 L, Absolute Granulocytes 28.6 H, Absolute Lymphocytes 0.5 L, Absolute Monocytes 0.9 H, Absolute Eosinophils 0, Absolute Basophils 0, PUBS MCHC 32.7 L 09/06/16 1630: APTT 56 H 09/06/16 1430: APTT 56 H 09/06/16 1230: APTT 51 H 09/06/16 1015: APTT 52 H Assessment/Plan Assessment: 71-year-old man with PMH of atrial fibrillation on Coumadin, CAD status post stents, with varicose veins, 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 Pt was initially admitted to general medicine. Skin biopsy on 08/26/[address] 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 He also developed CHARLES ( with BUN/cr up to 124/7.4 , was 27/1.7 on admission) and hyperkalemia (up to 6.3 ). 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 His K and kidney functions has improved with dialysis. After steroids was started, developed leukocytosis with WBC up to 43.3 (normal wbc on admission), afebrile (although on steroids) with no left shift, and did not improve with unasyn for presumable RLE cellulitis. He was transferred to telemetry from general medicine for close cardiac monitoring while aspirin and warfarin were held pending renal biopsy. Renal biopsy was delayed initially due to supratherapeutic INR (pt on warfarin for afib) for which renal did not feel comfortable reversing with FFP. So heparin started while warfarin held. On the day renal biopsy was planned, there was a concern that he might have developed heparin induced thrombocytopenia ( highest 186, lowest 72), with a high probability pre-test likelihood based on 4T score, so heparin drip was subsequently stopped, and argatroban drip started. Heparin induced platelet ab negative and heparin-pf4 ab od 0.013 (negative). HIT unlikely at this point, with platelet trending up to 136. Of note, pt had episode of NSVT on telemetry, for which his metoprolol dose was increased to 100 without subsequent recurrence. Pt was transferred to ICU for close nursing monitoring while on argatroban drip. Active issues include: # Possible Henoch-Schnlein purpura on prednisone and dialysis - Awaiting plan for renal biopsy and repeat skin biopsy with fluorescence study. # Possible HIT, but unlikely on argatroban drip pending biopsy. Platelet improving # Constipation # Leukocytosis, on steroids , with RLE pain, possible cellulits, on Unasyn # Atrial fibrillation (was on warfarin at home, currently being held), on argatroban drip # Episode of NSVT with no reccurent epidose after increasing metoprolol # Hx of CAD (aspirin on hold pending biopsy, await starting statin) # Henoch-Schnlein purpura - Diffuse petechial rash, first noted one week prior to admission, and persistent ecchymosis, edema and mild discomfort of the right leg - Subsequently developed CHARLES and hyperkalemia with microscopic hematuria, with improvement of creatinine due to dialysis - Cough with hemoptysis (not likely to be pulmonary renal based on chest ct) - Elevated ESR 36, CRP >15, RF 13.9 - Negative hepatitis panel, HIV, MARTIN, ANCA, cryoglobulin. Normal C3 and C4. * Pending renal biopsy by IR pending nephrology decision. Needs to be off argatroban for 12-18 hours. * Coordinating skin biopsy with fluorescence with surgery (Dr. Bonilla) at 1230 or 530 today * Nephrology on board * Dialysis started * Hematology on board (Dr. High) * on 60mg PO prednisone daily * Pulm on board * 20mg IV lasix given on 09/07 # Possible HIT - Platelet down from highest 186 --> lowest 72, now trending up - Received heparin from 09/01/16 to 09/04/16 - 4T high probability for HIT - Heparin induced platelet ab negative and heparin-pf4 ab od 0.013 (negative). * Serotonin release assay pending * Monitor CBC daily * Monitor for thombosis closely # Constipation * Give another suppository if continues to be constipated # Hemoptysis with cough - Due to warfarin use? - Sputum with streak of blood * Pulm consult appreciated, Dr. Jensen has signed off # Atrial fibrillation ( on coumadin at home) - CHADVASc score is 4 putting him at mod-high risk for stroke, on ArgatrobanCoumadin on hold due to possible renal biopsy * heparin drip discontinued due to possible HIT * On argatroban drip. Monitor ptt and adjust dose as protocol * No need to check INR as might be falsely elevated due to argatroban drip # Hx of CAD/prior myocardial infarction with mild to moderate left ventricular dysfunction by previous noninvasive imaging, now with severe LV dysfunction - Despite the cardiomyopathy he is not a candidate for addition of LISETH-I at this time * Restart aspirin 81 mg when medically cleared * Cardio recommend adding low-dose Lipitor 20 mg by mouth daily when medically cleared # One episode of NSVT on telemetry, chronic LBBB (resolved) * Increased metoprolol to Toprol XL 100 mg daily # Hx of HTN * On toprol # Leukocytosis up to 43.3, on steroids # Possible Cellulitis of right thigh secondary to lower extremity ulceration - X-ray of the right tibia/fibula negative. - Doppler of the right lower extremity negative * ID input appreciated * Unasyn 3000 q12 started on 09/04/16 pm. WBC continues to be elevated despite being on abx. Now day # 4 of abx * Wound consult appreciated * Monitor WBC * Xeroform and leg elevation above his heart DVT ppx: argatroban DNR/DNI In the event of any changes or updates please contact his son Paulo at [phone] or [id number] Sandra who is a hospice nurse at [phone] Problem List: 1. 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 Continue the argatroban until the Serotonin release assay is negative. Platelet factor 4 antibody is negative, the platelet count is going up. There is no evidence of thrombosis and if the release assay is negative will switch him back to IV heparin. He stays on IV heparin because his chads score is high given the EF is now 25%. His creatinine appears to be improving and he is not going to be dialyzed today for suspected Henoch-Schnlein purpura. Continues the high-dose prednisone. And will follow-up closely. IV Lasix for volume overload today (per Renal and Cardio)
[2016-09-07 08:00] VITALS: BP 152/88
--- NOTE | 2016-09-07 08:09 | Event Note ---
Event Note Event Note: Situation : Requirement for immunoflurosence for skin biospy. Brief :We talked to pathology lab, they send they would require two things 1.The skin biospy specimen needs to go into a fixating agent - called [employer] fixating agent, which we can get from the pathology lab whenever the biospy is done and put the specimen in it. 2.We need to fill a form, which we have collected from the lab, filled it and kept in her chart. Plan : As above, will also update surgery about the above and touch base about the timing for skin Bx.Dr anton plans to do the biopsy either at 1230pm or 530pm today, will continue to follow.
[2016-09-07 08:32] LABS: PTT 59 SEC (25-37)
--- NOTE | 2016-09-07 09:07 | PN- Nephrology ---
Assessment/Plan Assessment: 1. Acute kidney injury. 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 A closed renal biopsy was planned Monday. A skin biopsy was performed, however, immunofluorescent fluorescence was not done. A skin biopsy may be a safer way with which to proceed. 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 Making that diagnosis may affect the length of prednisone therapy 2. Volume status area he does appear to be a bit volume overloaded may benefit from some furosemide. 3. History of coronary artery disease status post PTCA 4. History of atrial fibrillation 5. Thrombocytopenia. He is being evaluated for heparin-induced thrombocytopenia. Suggestion: 1. Dialysis will be held today, will reassess in a.m. 2. Repeat biopsy of the skin with immunofluorescence will likely be performed today. 3. Closed renal biopsy may still need to be considered. Subjective Subjective: Patient is now on the ICU because of the close monitoring required with Argatroban. He says he feels better. Objective Vital Signs and I&Os Vital Signs Date Time Temp Pulse Resp B/P Pulse O2 O2 Flow FiO2 Ox Delivery Rate 09/07 0800 96.3 67 12 152/88 96 Room Air 09/07 0633 97.7 90 14 140/88 98 Room Air 09/07 0121 96 Room Air 09/07 0000 96.9 91 18 130/80 96 Room Air 09/07 0000 96 Room Air 09/06 1602 95 Room Air 09/06 1600 97.2 82 22 128/76 93 Room Air Intake & Output 09/07 1600 09/07 0400 09/06 1600 09/06 0400 09/05 1600 09/05 0400 Intake Total 300 346 784.6 533.2 878.8 570.4 Output Total 350 200 475 150 725 320 Balance -50 146 309.6 383.2 153.8 250.4 Intake, IV 60 226 214.6 133.2 228.8 170.4 Intake, Oral 240 120 570 400 650 400 Number 1 0 0 Bowel Movements Output, Urine 350 200 475 150 725 320 Patient 224 lb 231 lb Weight Physical Exam: General Appearance: well developed/nourished, no apparent distress, comfortable, obese Head: atraumatic, normal appearance Ears, Nose, Throat: hearing grossly normal, missing a few teeth Neck: normal inspection, supple, trachea mid line Respiratory: normal breath sounds, chest non-tender Cardiovascular: regular rate/rhythm Peripheral Pulses: 1+ tibialis posterior (R), 1+ tibialis posterior (L), 1+ dorsalis pedis (R), 1+ dorsalis pedis (L) Abdomen: normal bowel sounds, soft, non-tender, no organomegaly, no abdominal bruits Extremities: chronic venous stasis changes right greater than left. Both feet cool to the touch Neurologic/Psychiatric: no motor/sensory deficits, awake, alert, oriented x 3 Skin: chronic venous stasis changes coupled with a rash Current Medications: Current Medications Sig/Dagoberto Start time Last Medication Dose Route Stop Time Status Admin Acetaminophen 650 MG Q6P PRN 08/23 2345 AC 09/07 PO 0232 Albuterol Sulfate 3 ML Q4P PRN 08/30 1645 AC 09/07 INH 0102 Ampicillin Sodium/ 3,000 MG Q12 09/04 1000 AC 09/06 Sulbactam Sodium IV 2118 Sodium Chloride 100 ML Argatroban 250 MG Q24H 09/05 2315 AC 09/07 Sodium Chloride 250 ML IV 0454 Benzocaine/Menthol 1 SUKH Q4P PRN 08/31 1100 AC PO Benzonatate 100 MG TID PRN 08/25 1115 AC 08/30 PO 1652 Bisacodyl 10 MG ONCE ONE 09/07 0530 DC 09/07 SC 09/07 0531 0519 Bisacodyl 5 MG DAILY 08/27 1358 AC 09/06 PO 1024 Cholecalciferol 1,000 IU DAILY 08/29 1046 AC 09/06 PO 1023 Folic Acid 1 MG DAILY 08/24 1000 AC 09/06 PO 1023 Guaifenesin 10 ML Q6P PRN 08/26 1530 AC 09/03 PO 0549 Metoprolol Succinate 100 MG DAILY 09/03 1000 AC 09/06 PO 1023 Multivitamins 1 TAB DAILY 08/24 1000 AC 09/06 PO 1023 Omeprazole 40 MG DAILY AC 08/29 1045 AC 09/07 PO 0603 Phenol 2 SPRAY Q2P PRN 08/30 0900 AC 09/06 EXT 0048 Polyethylene Glycol 17 GM DAILY 08/27 1358 AC 09/06 PO 1022 Prednisone 60 MG DAILY 09/01 1000 AC 09/06 PO 1023 Thiamine HCl 100 MG DAILY 08/24 1000 AC 03/14 PO 1023 Results Pertinent Lab Results: Laboratory Tests 09/07 09/07 09/07 0655 0600 0343 Chemistry Sodium (137 - 145 mmol/L) 136 L Potassium (3.5 - 5.1 mmol/L) 4.9 Chloride (98 - 107 mmol/L) 102 Carbon Dioxide (22 - 30 mmol/L) 24 Anion Gap (5 - 16) 11 BUN (9 - 20 mg/dL) 77 H Creatinine (0.7 - 1.2 mg/dL) 3.4 H Estimated GFR (>60 ml/min) 18 L Glucose (65 - 99 mg/dL) 171 H Calcium (8.4 - 10.2 mg/dL) 8.9 Phosphorus (2.5 - 4.5 mg/dL) 6.4 H Magnesium (1.6 - 2.3 mg/dL) 2.4 H Total Bilirubin (0.2 - 1.3 mg/dL) 1.3 AST (17 - 59 U/L) 24 ALT (21 - 72 U/L) 47 Albumin (3.5 - 5.0 g/dL) 2.0 L Coagulation PT (9.4 - 12.5 SEC) Cancelled 32.1 H INR (0.90 - 1.17) Cancelled 3.09 H APTT (25 - 37 SEC) 59 H 57 H Hematology CBC w Diff MAN DIFF ORDERED WBC (4.8 - 10.8 /CUMM) 30.3 *H RBC (4.70 - 6.10 /CUMM) 3.91 L Hgb (14.0 - 18.0 G/DL) 11.3 L Hct (42 - 52 %) 34.5 L MCV (80.0 - 94.0 FL) 88.3 MCH (27.0 - 31.0 PG) 29.0 RDW (11.5 - 14.5 %) 15.5 H Plt Count (130 - 400 /CUMM) 136 MPV (7.4 - 10.4 FL) 8.9 Gran % (42.2 - 75.2 %) 90.6 H Lymphocytes % (20.5 - 51.1 %) 1.9 L Monocytes % (1.7 - 9.3 %) 7.5 Eosinophils % (0 - 5 %) 0 Basophils % (0.0 - 2.0 %) 0 L Absolute Granulocytes (1.4 - 6.5 /CUMM) 27.4 H Segmented Neutrophils (42.2 - 75.2 %) 87 H Band Neutrophils (0.0 - 5.0 %) 2 Absolute Lymphocytes (1.2 - 3.4 /CUMM) 0.6 L Lymphocytes (20.5 - 51.1 %) 4 L Monocytes (1.7 - 9.3 %) 7 Absolute Monocytes (0.10 - 0.60 /CUMM) 2.3 H Absolute Eosinophils (0.0 - 0.7 /CUMM) 0 Absolute Basophils (0.0 - 0.2 /CUMM) 0 Platelet Estimate (ADEQUATE) ADEQUATE Hypochromic-Microcytic 1+ PUBS MCHC (33.0 - 37.0 G/DL) 32.8 L Other Body Source Fld Total RBCs Counted (%) 100 09/07 183 1630 Chemistry Sodium (137 - 145 mmol/L) 137 Potassium (3.5 - 5.1 mmol/L) 5.0 Chloride (98 - 107 mmol/L) 100 Carbon Dioxide (22 - 30 mmol/L) 26 Anion Gap (5 - 16) 11 BUN (9 - 20 mg/dL) 70 H Creatinine (0.7 - 1.2 mg/dL) 3.3 H Estimated GFR (>60 ml/min) 19 L Glucose (65 - 99 mg/dL) 185 H Calcium (8.4 - 10.2 mg/dL) 8.4 Phosphorus (2.5 - 4.5 mg/dL) 6.0 H Magnesium (1.6 - 2.3 mg/dL) 2.3 Total Bilirubin (0.2 - 1.3 mg/dL) 1.3 AST (17 - 59 U/L) 32 ALT (21 - 72 U/L) 44 Albumin (3.5 - 5.0 g/dL) 2.1 L Coagulation APTT (25 - 37 SEC) 61 H 51 H 64 H 56 H Hematology CBC w Diff NO MAN DIFF REQ WBC (4.8 - 10.8 /CUMM) 30.0 H RBC (4.70 - 6.10 /CUMM) 4.08 L Hgb (14.0 - 18.0 G/DL) 11.8 L Hct (42 - 52 %) 36.1 L MCV (80.0 - 94.0 FL) 88.5 MCH (27.0 - 31.0 PG) 29.0 RDW (11.5 - 14.5 %) 15.4 H Plt Count (130 - 400 /CUMM) 134 MPV (7.4 - 10.4 FL) 8.8 Gran % (42.2 - 75.2 %) 95.2 H Lymphocytes % (20.5 - 51.1 %) 1.7 L Monocytes % (1.7 - 9.3 %) 3.1 Eosinophils % (0 - 5 %) 0 Basophils % (0.0 - 2.0 %) 0 L Absolute Granulocytes (1.4 - 6.5 /CUMM) 28.6 H Absolute Lymphocytes (1.2 - 3.4 /CUMM) 0.5 L Absolute Monocytes (0.10 - 0.60 /CUMM) 0.9 H Absolute Eosinophils (0.0 - 0.7 /CUMM) 0 Absolute Basophils (0.0 - 0.2 /CUMM) 0 PUBS MCHC (33.0 - 37.0 G/DL) 32.7 L 09/06 09/06 09/06 09/06 09/06 1430 1230 1015 0840 0625 Coagulation APTT (25 - 37 SEC) 56 H 51 H 52 H 57 H 49 H 09/06 09/06 09/06 0600 0300 0300 Chemistry Sodium (137 - 145 mmol/L) 137 Potassium (3.5 - 5.1 mmol/L) 3.9 Chloride (98 - 107 mmol/L) 100 Carbon Dioxide (22 - 30 mmol/L) 28 Anion Gap (5 - 16) 8 BUN (9 - 20 mg/dL) 53 H Creatinine (0.7 - 1.2 mg/dL) 2.8 H Estimated GFR (>60 ml/min) 22 L BUN/Creatinine Ratio (7 - 25 %) 18.9 Magnesium (1.6 - 2.3 mg/dL) 2.2 Total Bilirubin (0.2 - 1.3 mg/dL) 1.4 H Direct Bilirubin (< 0.4 mg/dL) 0.8 H AST (17 - 59 U/L) 22 ALT (21 - 72 U/L) 36 Alkaline Phosphatase (< 127 U/L) 107 Total Protein (6.3 - 8.2 g/dL) 4.8 L Albumin (3.5 - 5.0 g/dL) 2.0 L Coagulation PT (9.4 - 12.5 SEC) Cancelled 28.8 H INR (0.90 - 1.17) Cancelled 2.77 H APTT (25 - 37 SEC) 47 H Cancelled Hematology CBC w Diff MAN DIFF ORDERED WBC (4.8 - 10.8 /CUMM) 41.4 *H RBC (4.70 - 6.10 /CUMM) 3.96 L Hgb (14.0 - 18.0 G/DL) 11.5 L Hct (42 - 52 %) 35.3 L MCV (80.0 - 94.0 FL) 89.2 MCH (27.0 - 31.0 PG) 29.0 RDW (11.5 - 14.5 %) 15.3 H Plt Count (130 - 400 /CUMM) 114 L MPV (7.4 - 10.4 FL) 9.1 Gran % (42.2 - 75.2 %) 92.5 H Lymphocytes % (20.5 - 51.1 %) 1.4 L Monocytes % (1.7 - 9.3 %) 6.1 Eosinophils % (0 - 5 %) 0 Basophils % (0.0 - 2.0 %) 0 L Absolute Granulocytes (1.4 - 6.5 /CUMM) 38.3 H Segmented Neutrophils (42.2 - 75.2 %) 92 H Absolute Lymphocytes (1.2 - 3.4 /CUMM) 0.6 L Lymphocytes (20.5 - 51.1 %) 1 L Monocytes (1.7 - 9.3 %) 7 Absolute Monocytes (0.10 - 0.60 /CUMM) 2.5 H Absolute Eosinophils (0.0 - 0.7 /CUMM) 0 Absolute Basophils (0.0 - 0.2 /CUMM) 0 Nucleated RBCs (0.0 - 0.0 /100WBC) 1 H Platelet Estimate (ADEQUATE) ADEQUATE Polychromasia 1+ Hypochromic-Microcytic 1+ Poikilocytosis 3+ Ovalocytes 1+ [place] Cells 2+ Elliptocytes FEW PUBS MCHC (33.0 - 37.0 G/DL) 32.5 L Other Body Source Fld Total RBCs Counted (%) 100 09/06 09/05 09/05 0030 2043 1700 Chemistry Sodium (137 - 145 mmol/L) 135 L 133 L Potassium (3.5 - 5.1 mmol/L) 3.7 4.3 Chloride (98 - 107 mmol/L) 98 97 L Carbon Dioxide (22 - 30 mmol/L) 27 23 Anion Gap (5 - 16) 10 13 BUN (9 - 20 mg/dL) 32 H 97 H Creatinine (0.7 - 1.2 mg/dL) 1.7 H 4.4 H Estimated GFR (>60 ml/min) 40 L 13 L BUN/Creatinine Ratio (7 - 25 %) 18.8 22.0 Phosphorus (2.5 - 4.5 mg/dL) 7.4 H Coagulation APTT (25 - 37 SEC) 53 H 48 H 82 H Hematology CBC w Diff MAN DIFF ORDERED WBC (4.8 - 10.8 /CUMM) 29.4 H RBC (4.70 - 6.10 /CUMM) 3.77 L Hgb (14.0 - 18.0 G/DL) 11.0 L Hct (42 - 52 %) 33.4 L MCV (80.0 - 94.0 FL) 88.6 MCH (27.0 - 31.0 PG) 29.3 RDW (11.5 - 14.5 %) 15.5 H Plt Count (130 - 400 /CUMM) 100 L MPV (7.4 - 10.4 FL) 10.0 Gran % (42.2 - 75.2 %) 96.0 H Lymphocytes % (20.5 - 51.1 %) 1.0 L Monocytes % (1.7 - 9.3 %) 3.0 Eosinophils % (0 - 5 %) 0 Basophils % (0.0 - 2.0 %) 0 L Absolute Granulocytes (1.4 - 6.5 /CUMM) 28.2 H Segmented Neutrophils (42.2 - 75.2 %) 97 H Absolute Lymphocytes (1.2 - 3.4 /CUMM) 0.3 L Lymphocytes (20.5 - 51.1 %) 1 L Monocytes (1.7 - 9.3 %) 2 Absolute Monocytes (0.10 - 0.60 /CUMM) 0.9 H Absolute Eosinophils (0.0 - 0.7 /CUMM) 0 Absolute Basophils (0.0 - 0.2 /CUMM) 0 Platelet Estimate (ADEQUATE) VERIFIED BY SMEAR Poikilocytosis FEW [place] Cells FEW PUBS MCHC (33.0 - 37.0 G/DL) 33.0 Other Body Source Fld Total RBCs Counted (%) 100 09/05 09/05 09/05 1155 1100 0651 Chemistry Sodium (137 - 145 mmol/L) 135 L Potassium (3.5 - 5.1 mmol/L) 4.5 Chloride (98 - 107 mmol/L) 98 Carbon Dioxide (22 - 30 mmol/L) 28 Anion Gap (5 - 16) 10 BUN (9 - 20 mg/dL) 91 H Creatinine (0.7 - 1.2 mg/dL) 4.5 H Estimated GFR (>60 ml/min) 13 L BUN/Creatinine Ratio (7 - 25 %) 20.2 Magnesium (1.6 - 2.3 mg/dL) 2.6 H Coagulation PT (9.4 - 12.5 SEC) 48.8 *H 63.2 *H INR (0.90 - 1.17) 4.72 *H 6.13 *H APTT (25 - 37 SEC) 91 H Cancelled 107 *H Hematology CBC w Diff MAN DIFF ORDERED WBC (4.8 - 10.8 /CUMM) 33.1 *H RBC (4.70 - 6.10 /CUMM) 4.28 L Hgb (14.0 - 18.0 G/DL) 12.4 L Hct (42 - 52 %) 38.0 L MCV (80.0 - 94.0 FL) 88.6 MCH (27.0 - 31.0 PG) 29.0 RDW (11.5 - 14.5 %) 15.3 H Plt Count (130 - 400 /CUMM) 91 L MPV (7.4 - 10.4 FL) 9.6 Gran % (42.2 - 75.2 %) 93.0 H Lymphocytes % (20.5 - 51.1 %) 2.6 L Monocytes % (1.7 - 9.3 %) 4.4 Eosinophils % (0 - 5 %) 0 Basophils % (0.0 - 2.0 %) 0 L Absolute Granulocytes (1.4 - 6.5 /CUMM) 30.8 H Absolute Lymphocytes (1.2 - 3.4 /CUMM) 0.9 L Absolute Monocytes (0.10 - 0.60 /CUMM) 1.4 H Absolute Eosinophils (0.0 - 0.7 /CUMM) 0 Absolute Basophils (0.0 - 0.2 /CUMM) 0 Polychromasia 1+ Poikilocytosis 1+ Anisocytosis 2+ Ovalocytes 1+ PUBS MCHC (33.0 - 37.0 G/DL) 32.7 L Immunology Heparin-induced Plt Ab (NEGATIVE) NEGATIVE Heparin-PF4 AB OD (<OR= 0.300 OD UNITS) 0.013 Miscellaneous Ref Lab Test Result Pending 09/04 09/04 09/04 09/04 2200 2145 1955 1215 Coagulation APTT (25 - 37 SEC) 73 H 89 H 70 H Hematology CBC w Diff Cancelled WBC Cancelled RBC Cancelled Hgb Cancelled Hct Cancelled MCV Cancelled MCH Cancelled RDW Cancelled Plt Count Cancelled MPV Cancelled PUBS MCHC Cancelled
[2016-09-07 09:16] LABS: PTT 72 SEC (25-37)
--- NOTE | 2016-09-07 09:37 | PN- Hematology ---
See Addendum Subjective Subjective: self-limited chest pain, otherwise no new complaints Review of Systems: 12 point r.o.s negative Objective Vital Signs and I&Os Vital Signs Date Time Temp Pulse Resp B/P Pulse O2 O2 Flow FiO2 Ox Delivery Rate 09/07 0800 96.3 67 12 152/88 96 Room Air 09/07 0633 97.7 90 14 140/88 98 Room Air 09/07 0121 96 Room Air 09/07 0000 96.9 91 18 130/80 96 Room Air 09/07 0000 96 Room Air 09/06 1602 95 Room Air 09/06 1600 97.2 82 22 128/76 93 Room Air Intake & Output 09/07 1600 09/07 0800 09/07 0000 09/06 1600 09/06 0800 09/06 0000 Intake Total 300 346 650 134.6 533.2 Output Total 350 200 275 200 150 Balance -50 146 375 -65.4 383.2 Intake, IV 60 226 200 14.6 133.2 Intake, Oral 240 120 450 120 400 Number 1 0 0 Bowel Movements Output, Urine 350 200 275 200 150 Patient 224 lb Weight anicteric Lungs: decreased breath sounds Cor: rr Abd: soft Ext: no edema Current Medications: Current Medications Sig/Daogberto Start time Last Medication Dose Route Stop Time Status Admin Acetaminophen 650 MG Q6P PRN 08/23 2345 AC 09/07 PO 0232 Albuterol Sulfate 3 ML Q4P PRN 08/30 1645 AC 09/07 INH 0102 Ampicillin Sodium/ 3,000 MG Q12 09/04 1000 AC 09/07 Sulbactam Sodium IV 0921 Sodium Chloride 100 ML Argatroban 250 MG Q24H 09/05 2315 AC 09/07 Sodium Chloride 250 ML IV 0454 Benzocaine/Menthol 1 SUKH Q4P PRN 08/31 1100 AC PO Benzonatate 100 MG TID PRN 08/25 1115 AC 08/30 PO 1652 Bisacodyl 10 MG ONCE ONE 09/07 0530 DC 09/07 GA 09/07 0531 0519 Bisacodyl 5 MG DAILY 08/27 1358 AC 09/07 PO 0921 Cholecalciferol 1,000 IU DAILY 08/29 1046 AC 09/07 PO 0921 Folic Acid 1 MG DAILY 08/24 1000 AC 09/07 PO 0921 Guaifenesin 10 ML Q6P PRN 08/26 1530 AC 09/03 PO 0549 Metoprolol Succinate 100 MG DAILY 09/03 1000 AC 09/07 PO 0921 Multivitamins 1 TAB DAILY 08/24 1000 AC 09/07 PO 0921 Omeprazole 40 MG DAILY AC 08/29 1045 AC 09/07 PO 0603 Phenol 2 SPRAY Q2P PRN 08/30 0900 AC 09/06 EXT 0048 Polyethylene Glycol 17 GM DAILY 08/27 1358 AC 09/07 PO 0922 Prednisone 60 MG DAILY 09/01 1000 AC 09/07 PO 0921 Thiamine HCl 100 MG DAILY 08/24 1000 AC 09/07 PO 09 Results Last 24 Hours of Lab Results: Laboratory Tests 09/07 09/07 09/07 0850 0655 0600 Coagulation PT Cancelled INR Cancelled APTT (25 - 37 SEC) 72 H 59 H 09/07 09/07 09/06 0345 0035 2009 Chemistry Sodium (137 - 145 mmol/L) 136 L Potassium (3.5 - 5.1 mmol/L) 4.9 Chloride (98 - 107 mmol/L) 102 Carbon Dioxide (22 - 30 mmol/L) 24 Anion Gap (5 - 16) 11 BUN (9 - 20 mg/dL) 77 H Creatinine (0.7 - 1.2 mg/dL) 3.4 H Estimated GFR (>60 ml/min) 18 L Glucose (65 - 99 mg/dL) 171 H Calcium (8.4 - 10.2 mg/dL) 8.9 Phosphorus (2.5 - 4.5 mg/dL) 6.4 H Magnesium (1.6 - 2.3 mg/dL) 2.4 H Total Bilirubin (0.2 - 1.3 mg/dL) 1.3 AST (17 - 59 U/L) 24 ALT (21 - 72 U/L) 47 Albumin (3.5 - 5.0 g/dL) 2.0 L Coagulation PT (9.4 - 12.5 SEC) 32.1 H INR (0.90 - 1.17) 3.09 H APTT (25 - 37 SEC) 57 H 61 H 51 H Hematology CBC w Diff MAN DIFF ORDERED WBC (4.8 - 10.8 /CUMM) 30.3 *H RBC (4.70 - 6.10 /CUMM) 3.91 L Hgb (14.0 - 18.0 G/DL) 11.3 L Hct (42 - 52 %) 34.5 L MCV (80.0 - 94.0 FL) 88.3 MCH (27.0 - 31.0 PG) 29.0 RDW (11.5 - 14.5 %) 15.5 H Plt Count (130 - 400 /CUMM) 136 MPV (7.4 - 10.4 FL) 8.9 Gran % (42.2 - 75.2 %) 90.6 H Lymphocytes % (20.5 - 51.1 %) 1.9 L Monocytes % (1.7 - 9.3 %) 7.5 Eosinophils % (0 - 5 %) 0 Basophils % (0.0 - 2.0 %) 0 L Absolute Granulocytes (1.4 - 6.5 /CUMM) 27.4 H Segmented Neutrophils (42.2 - 75.2 %) 87 H Band Neutrophils (0.0 - 5.0 %) 2 Absolute Lymphocytes (1.2 - 3.4 /CUMM) 0.6 L Lymphocytes (20.5 - 51.1 %) 4 L Monocytes (1.7 - 9.3 %) 7 Absolute Monocytes (0.10 - 0.60 /CUMM) 2.3 H Absolute Eosinophils (0.0 - 0.7 /CUMM) 0 Absolute Basophils (0.0 - 0.2 /CUMM) 0 Platelet Estimate (ADEQUATE) ADEQUATE Hypochromic-Microcytic 1+ PUBS MCHC (33.0 - 37.0 G/DL) 32.8 L Other Body Source Fld Total RBCs Counted (%) 100 09/06 09/06 09/06 09/06 1830 1630 1430 1230 Chemistry Sodium (137 - 145 mmol/L) 137 Potassium (3.5 - 5.1 mmol/L) 5.0 Chloride (98 - 107 mmol/L) 100 Carbon Dioxide (22 - 30 mmol/L) 26 Anion Gap (5 - 16) 11 BUN (9 - 20 mg/dL) 70 H Creatinine (0.7 - 1.2 mg/dL) 3.3 H Estimated GFR (>60 ml/min) 19 L Glucose (65 - 99 mg/dL) 185 H Calcium (8.4 - 10.2 mg/dL) 8.4 Phosphorus (2.5 - 4.5 mg/dL) 6.0 H Magnesium (1.6 - 2.3 mg/dL) 2.3 Total Bilirubin (0.2 - 1.3 mg/dL) 1.3 AST (17 - 59 U/L) 32 ALT (21 - 72 U/L) 44 Albumin (3.5 - 5.0 g/dL) 2.1 L Coagulation APTT (25 - 37 SEC) 64 H 56 H 56 H 51 H Hematology CBC w Diff NO MAN DIFF REQ WBC (4.8 - 10.8 /CUMM) 30.0 H RBC (4.70 - 6.10 /CUMM) 4.08 L Hgb (14.0 - 18.0 G/DL) 11.8 L Hct (42 - 52 %) 36.1 L MCV (80.0 - 94.0 FL) 88.5 MCH (27.0 - 31.0 PG) 29.0 RDW (11.5 - 14.5 %) 15.4 H Plt Count (130 - 400 /CUMM) 134 MPV (7.4 - 10.4 FL) 8.8 Gran % (42.2 - 75.2 %) 95.2 H Lymphocytes % (20.5 - 51.1 %) 1.7 L Monocytes % (1.7 - 9.3 %) 3.1 Eosinophils % (0 - 5 %) 0 Basophils % (0.0 - 2.0 %) 0 L Absolute Granulocytes (1.4 - 6.5 /CUMM) 28.6 H Absolute Lymphocytes (1.2 - 3.4 /CUMM) 0.5 L Absolute Monocytes (0.10 - 0.60 /CUMM) 0.9 H Absolute Eosinophils (0.0 - 0.7 /CUMM) 0 Absolute Basophils (0.0 - 0.2 /CUMM) 0 PUBS MCHC (33.0 - 37.0 G/DL) 32.7 L 09/06 1015 Coagulation APTT (25 - 37 SEC) 52 H Assessment/Plan Assessment/Recommendations: Small Cell lung Cancer-stable for d/c, f/u my office
--- NOTE | 2016-09-07 09:47 | PN- Hematology ---
Subjective Subjective: Patient complaining of distended abdomen Review of Systems: 12 point review of systems otherwise nonspecific Objective Vital Signs and I&Os Vital Signs Date Time Temp Pulse Resp B/P Pulse O2 O2 Flow FiO2 Ox Delivery Rate 09/07 08 96.3 67 12 152/88 96 Room Air 09/07 0633 97.7 90 14 140/88 98 Room Air 09/07 0121 96 Room Air 09/07 0000 96.9 91 18 130/80 96 Room Air 09/07 0000 96 Room Air 09/06 1602 95 Room Air 09/06 1600 97.2 82 22 128/76 93 Room Air Intake & Output 09/07 1600 09/07 0800 09/07 0000 09/06 1600 09/06 0800 09/06 0000 Intake Total 300 346 650 134.6 533.2 Output Total 350 200 275 200 150 Balance -50 146 375 -65.4 383.2 Intake, IV 60 226 200 14.6 133.2 Intake, Oral 240 120 450 120 400 Number 1 0 0 Bowel Movements Output, Urine 350 200 275 200 150 Patient 224 lb Weight Gen.: in NAD ENT: Sclera anicteric Chest: Normal respiratory effort, decreased breath sounds Cor: IRRR, no extra sounds Abdomen: Soft, distended , slightly decreased bowel sounds present, Extremities: Without clubbing, cyanosis, Neurology: Alert and oriented 3, no gross deficit Skin: Without significant change Current Medications: Current Medications Sig/Dagoberto Start time Last Medication Dose Route Stop Time Status Admin Acetaminophen 650 MG Q6P PRN 08/23 2345 AC 09/07 PO 0232 Albuterol Sulfate 3 ML Q4P PRN 08/30 1645 AC 09/07 INH 0102 Ampicillin Sodium/ 3,000 MG Q12 09/04 1000 AC 09/07 Sulbactam Sodium IV 0921 Sodium Chloride 100 ML Argatroban 250 MG Q24H 09/05 2315 AC 09/07 Sodium Chloride 250 ML IV 0454 Benzocaine/Menthol 1 SUKH Q4P PRN 08/31 1100 AC PO Benzonatate 100 MG TID PRN 08/25 1115 AC 08/30 PO 1652 Bisacodyl 10 MG ONCE ONE 09/07 0530 DC 09/07 MS 09/07 0531 0519 Bisacodyl 5 MG DAILY 08/27 1358 AC 09/07 PO 0921 Cholecalciferol 1,000 IU DAILY 08/29 1046 AC 09/07 PO 0921 Folic Acid 1 MG DAILY 08/24 1000 AC 09/07 PO 0921 Guaifenesin 10 ML Q6P PRN 08/26 1530 AC 09/03 PO 0549 Metoprolol Succinate 100 MG DAILY 09/03 1000 AC 09/07 PO 0921 Multivitamins 1 TAB DAILY 08/24 1000 AC 09/07 PO 0921 Omeprazole 40 MG DAILY AC 08/29 1045 AC 09/07 PO 0603 Phenol 2 SPRAY Q2P PRN 08/30 0900 AC 09/06 EXT 0048 Polyethylene Glycol 17 GM DAILY 08/27 1358 AC 09/07 PO 0922 Prednisone 60 MG DAILY 09/01 1000 AC 09/07 PO 0921 Thiamine HCl 100 MG DAILY 08/24 1000 AC 09/07 PO 0921 Results Last 24 Hours of Lab Results: Laboratory Tests 09/07 09/07 09/07 0850 0655 0600 Coagulation PT Cancelled INR Cancelled APTT (25 - 37 SEC) 72 H 59 H 09/07 09/07 09/06 0345 0035 2009 Chemistry Sodium (137 - 145 mmol/L) 136 L Potassium (3.5 - 5.1 mmol/L) 4.9 Chloride (98 - 107 mmol/L) 102 Carbon Dioxide (22 - 30 mmol/L) 24 Anion Gap (5 - 16) 11 BUN (9 - 20 mg/dL) 77 H Creatinine (0.7 - 1.2 mg/dL) 3.4 H Estimated GFR (>60 ml/min) 18 L Glucose (65 - 99 mg/dL) 171 H Calcium (8.4 - 10.2 mg/dL) 8.9 Phosphorus (2.5 - 4.5 mg/dL) 6.4 H Magnesium (1.6 - 2.3 mg/dL) 2.4 H Total Bilirubin (0.2 - 1.3 mg/dL) 1.3 AST (17 - 59 U/L) 24 ALT (21 - 72 U/L) 47 Albumin (3.5 - 5.0 g/dL) 2.0 L Coagulation PT (9.4 - 12.5 SEC) 32.1 H INR (0.90 - 1.17) 3.09 H APTT (25 - 37 SEC) 57 H 61 H 51 H Hematology CBC w Diff MAN DIFF ORDERED WBC (4.8 - 10.8 /CUMM) 30.3 *H RBC (4.70 - 6.10 /CUMM) 3.91 L Hgb (14.0 - 18.0 G/DL) 11.3 L Hct (42 - 52 %) 34.5 L MCV (80.0 - 94.0 FL) 88.3 MCH (27.0 - 31.0 PG) 29.0 RDW (11.5 - 14.5 %) 15.5 H Plt Count (130 - 400 /CUMM) 136 MPV (7.4 - 10.4 FL) 8.9 Gran % (42.2 - 75.2 %) 90.6 H Lymphocytes % (20.5 - 51.1 %) 1.9 L Monocytes % (1.7 - 9.3 %) 7.5 Eosinophils % (0 - 5 %) 0 Basophils % (0.0 - 2.0 %) 0 L Absolute Granulocytes (1.4 - 6.5 /CUMM) 27.4 H Segmented Neutrophils (42.2 - 75.2 %) 87 H Band Neutrophils (0.0 - 5.0 %) 2 Absolute Lymphocytes (1.2 - 3.4 /CUMM) 0.6 L Lymphocytes (20.5 - 51.1 %) 4 L Monocytes (1.7 - 9.3 %) 7 Absolute Monocytes (0.10 - 0.60 /CUMM) 2.3 H Absolute Eosinophils (0.0 - 0.7 /CUMM) 0 Absolute Basophils (0.0 - 0.2 /CUMM) 0 Platelet Estimate (ADEQUATE) ADEQUATE Hypochromic-Microcytic 1+ PUBS MCHC (33.0 - 37.0 G/DL) 32.8 L Other Body Source Fld Total RBCs Counted (%) 100 09/06 09/06 09/06 09/06 1830 1630 1430 1230 Chemistry Sodium (137 - 145 mmol/L) 137 Potassium (3.5 - 5.1 mmol/L) 5.0 Chloride (98 - 107 mmol/L) 100 Carbon Dioxide (22 - 30 mmol/L) 26 Anion Gap (5 - 16) 11 BUN (9 - 20 mg/dL) 70 H Creatinine (0.7 - 1.2 mg/dL) 3.3 H Estimated GFR (>60 ml/min) 19 L Glucose (65 - 99 mg/dL) 185 H Calcium (8.4 - 10.2 mg/dL) 8.4 Phosphorus (2.5 - 4.5 mg/dL) 6.0 H Magnesium (1.6 - 2.3 mg/dL) 2.3 Total Bilirubin (0.2 - 1.3 mg/dL) 1.3 AST (17 - 59 U/L) 32 ALT (21 - 72 U/L) 44 Albumin (3.5 - 5.0 g/dL) 2.1 L Coagulation APTT (25 - 37 SEC) 64 H 56 H 56 H 51 H Hematology CBC w Diff NO MAN DIFF REQ WBC (4.8 - 10.8 /CUMM) 30.0 H RBC (4.70 - 6.10 /CUMM) 4.08 L Hgb (14.0 - 18.0 G/DL) 11.8 L Hct (42 - 52 %) 36.1 L MCV (80.0 - 94.0 FL) 88.5 MCH (27.0 - 31.0 PG) 29.0 RDW (11.5 - 14.5 %) 15.4 H Plt Count (130 - 400 /CUMM) 134 MPV (7.4 - 10.4 FL) 8.8 Gran % (42.2 - 75.2 %) 95.2 H Lymphocytes % (20.5 - 51.1 %) 1.7 L Monocytes % (1.7 - 9.3 %) 3.1 Eosinophils % (0 - 5 %) 0 Basophils % (0.0 - 2.0 %) 0 L Absolute Granulocytes (1.4 - 6.5 /CUMM) 28.6 H Absolute Lymphocytes (1.2 - 3.4 /CUMM) 0.5 L Absolute Monocytes (0.10 - 0.60 /CUMM) 0.9 H Absolute Eosinophils (0.0 - 0.7 /CUMM) 0 Absolute Basophils (0.0 - 0.2 /CUMM) 0 PUBS MCHC (33.0 - 37.0 G/DL) 32.7 L 09/06 1015 Coagulation APTT (25 - 37 SEC) 52 H Assessment/Plan Assessment/Recommendations: 1. Thrombocytopenia-resolved. Data thus far is not suggest HIT, await serotonin-release assay 2. Coagulopathy-patient remains onArgatroban, explaining current elevated PT and PTT. Indication for anticoagulation has been atrial fibrillation, not solely HIT. As I have discussed with Kareen Amezcua MD, if a renal biopsy is to be performed-hold Argatroban, 12-18 hours prior to biopsy 3. Leukocytosis-all neutrophils, likely secondary to corticosteroids
[2016-09-07 11:18] LABS: PTT 76 SEC (25-37)
--- NOTE | 2016-09-07 12:03 | PN- Cardiology ---
Subjective Subjective: Patient resting comfortably this morning. Minimal lower extremity pain. No chest pain or palpitations. Objective Vital Signs and I&Os Vital Signs Date Time Temp Pulse Resp B/P Pulse O2 O2 Flow FiO2 Ox Delivery Rate 09/07 1108 96 Room Air 09/07 0800 96.3 67 12 152/88 96 Room Air 09/07 0633 97.7 90 14 140/88 98 Room Air 09/07 0121 96 Room Air 09/07 0000 96.9 91 18 130/80 96 Room Air 09/07 0000 96 Room Air 09/06 1602 95 Room Air 09/06 1600 97.2 82 22 128/76 93 Room Air Intake & Output 09/07 1600 09/07 0800 09/07 0000 09/06 1600 09/06 0800 09/06 0000 Intake Total 300 346 650 134.6 533.2 Output Total 350 200 275 200 150 Balance -50 146 375 -65.4 383.2 Intake, IV 60 226 200 14.6 133.2 Intake, Oral 240 120 450 120 400 Number 1 0 0 Bowel Movements Output, Urine 350 200 275 200 150 Patient 224 lb Weight Physical Exam: General: no apparent distress. Alert. Laying flat. Eyes: No obvious scleral icterus. HEENT: No jugular venous distention, some lesions noted on his upper palate Cardiovascular: Normal intensity S1/S2. Irregular. Respiratory: no rales or ronchi Abdomen: no guarding or rebound tenderness. Musculoskeletal: No clubbing or cyanosis noted, LE edema bilaterally Skin: Rash noted, warm Neurologic: No gross focal deficits noted. Current Medications: Current Medications Sig/Dagoberto Start time Last Medication Dose Route Stop Time Status Admin Acetaminophen 650 MG .STK-MED ONE 09/07 0226 DC PO 09/07 0227 Acetaminophen 650 MG Q6P PRN 08/23 2345 AC 09/07 PO 0232 Albuterol Sulfate 3 ML Q4P PRN 08/30 1645 AC 09/07 INH 0102 Ampicillin Sodium/ 3,000 MG Q12 09/04 1000 AC 09/07 Sulbactam Sodium IV 0921 Sodium Chloride 100 ML Argatroban 250 MG Q24H 09/05 2315 AC 09/07 Sodium Chloride 250 ML IV 0454 Benzocaine/Menthol 1 SUKH Q4P PRN 08/31 1100 AC PO Benzonatate 100 MG TID PRN 08/25 1115 AC 08/30 PO 1652 Bisacodyl 10 MG ONCE ONE 09/07 0530 DC 09/07 ME 09/07 0531 0519 Bisacodyl 5 MG DAILY 08/27 1358 AC 09/07 PO 0921 Cholecalciferol 1,000 IU DAILY 08/29 1046 AC 09/07 PO 0921 Folic Acid 1 MG DAILY 08/24 1000 AC 09/07 PO 0921 Guaifenesin 10 ML Q6P PRN 08/26 1530 AC 09/03 PO 0549 Metoprolol Succinate 100 MG DAILY 09/03 1000 AC 09/07 PO 0921 Multivitamins 1 TAB DAILY 08/24 1000 AC 09/07 PO 0921 Omeprazole 40 MG DAILY AC 08/29 1045 AC 09/07 PO 0603 Phenol 2 SPRAY Q2P PRN 08/30 0900 AC 09/06 EXT 0048 Polyethylene Glycol 17 GM DAILY 08/27 1358 AC 09/07 PO 0922 Prednisone 60 MG DAILY 09/01 1000 AC 09/07 PO 0921 Thiamine HCl 100 MG DAILY 08/24 1000 AC 09/07 PO 0921 Results Last 48 Hrs of Labs/Mics: Laboratory Tests 09/07/16 1045: APTT 76 H 09/07/16 0850: APTT 72 H 09/07/16 0655: APTT 59 H 09/07/16 0600: PT Cancelled, INR Cancelled 09/07/16 0345: Anion Gap 11, Estimated GFR 18 L, Glucose 171 H, Calcium 8.9, Phosphorus 6.4 H, Magnesium 2.4 H, Total Bilirubin 1.3, AST 24, ALT 47, Albumin 2.0 L, PT 32.1 H, INR 3.09 H, APTT 57 H, CBC w Diff MAN DIFF ORDERED, RBC 3.91 L, MCV 88.3, MCH 29.0, RDW 15.5 H, MPV 8.9, Gran % 90.6 H, Lymphocytes % 1.9 L, Monocytes % 7.5, Eosinophils % 0, Basophils % 0 L, Absolute Granulocytes 27.4 H, Segmented Neutrophils 87 H, Band Neutrophils 2, Absolute Lymphocytes 0.6 L, Lymphocytes 4 L, Monocytes 7, Absolute Monocytes 2.3 H, Absolute Eosinophils 0 , Absolute Basophils 0, Platelet Estimate ADEQUATE, Hypochromic-Microcytic 1+, PUBS MCHC 32.8 L, Fld Total RBCs Counted 100 09/07/16 0035: APTT 61 H 09/06/162009: APTT 51 H 09/06/16 1830: Anion Gap 11, Estimated GFR 19 L, Glucose 185 H, Calcium 8.4, Phosphorus 6.0 H, Magnesium 2.3, Total Bilirubin 1.3, AST 32, ALT 44, Albumin 2.1 L, APTT 64 H, CBC w Diff NO MAN DIFF REQ, RBC 4.08 L, MCV 88.5, MCH 29.0, RDW 15.4 H, MPV 8.8, Gran % 95.2 H, Lymphocytes % 1.7 L, Monocytes % 3.1, Eosinophils % 0, Basophils % 0 L, Absolute Granulocytes 28.6 H, Absolute Lymphocytes 0.5 L, Absolute Monocytes 0.9 H, Absolute Eosinophils 0, Absolute Basophils 0, PUBS MCHC 32.7 L 09/06/16 1630: APTT 56 H 09/06/16 1430: APTT 56 H 09/06/16 1230: APTT 51 H 09/06/16 1015: APTT 52 H 09/06/16 0840: APTT 57 H 09/06/16 0625: APTT 49 H 09/06/16 0600: PT Cancelled, INR Cancelled 09/06/16 0300: PT 28.8 H, INR 2.77 H, APTT 47 H 09/06/16 0300: Anion Gap 8, Estimated GFR 22 L, BUN/Creatinine Ratio 18.9, Magnesium 2.2, Total Bilirubin 1.4 H, Direct Bilirubin 0.8 H, AST 22, ALT 36, Alkaline Phosphatase 107, Total Protein 4.8 L, Albumin 2.0 L, APTT Cancelled, CBC w Diff MAN DIFF ORDERED, RBC 3.96 L, MCV 89.2, MCH 29.0, RDW 15.3 H, MPV 9.1, Gran % 92.5 H, Lymphocytes % 1.4 L, Monocytes % 6.1, Eosinophils % 0, Basophils % 0 L, Absolute Granulocytes 38.3 H, Segmented Neutrophils 92 H, Absolute Lymphocytes 0.6 L, Lymphocytes 1 L, Monocytes 7, Absolute Monocytes 2.5 H, Absolute Eosinophils 0, Absolute Basophils 0, Nucleated RBCs 1 H, Platelet Estimate ADEQUATE, Polychromasia 1+, Hypochromic-Microcytic 1+, Poikilocytosis 3+, Ovalocytes 1+, Myron Cells 2+, Elliptocytes FEW, PUBS MCHC 32.5 L, Fld Total RBCs Counted 100 09/06/16 0030: APTT 53 H 09/05/16 2043: Anion Gap 10, Estimated GFR 40 L, BUN/Creatinine Ratio 18.8, APTT 48 H 09/05/16 1700: Anion Gap 13, Estimated GFR 13 L, BUN/Creatinine Ratio 22.0, Phosphorus 7.4 H, APTT 82 H, CBC w Diff MAN DIFF ORDERED, RBC 3.77 L, MCV 88.6, MCH 29.3, RDW 15.5 H, MPV 10.0, Gran % 96.0 H, Lymphocytes % 1.0 L, Monocytes % 3.0, Eosinophils % 0, Basophils % 0 L, Absolute Granulocytes 28.2 H, Segmented Neutrophils 97 H, Absolute Lymphocytes 0.3 L, Lymphocytes 1 L, Monocytes 2, Absolute Monocytes 0.9 H, Absolute Eosinophils 0, Absolute Basophils 0, Platelet Estimate VERIFIED BY SMEAR, Poikilocytosis FEW, Howell Cells FEW, PUBS MCHC 33.0, Fld Total RBCs Counted 100 Recent Imaging Studies: Telemetry tracings personally reviewed and show atrial fibrillation with controlled ventricular response rate Assessment/Plan Assessment/Plan 1. 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 Persistent atrial fibrillation on anticoagulation with Coumadin on hold 3. History of coronary artery disease/prior myocardial infarction with mild to moderate left ventricular dysfunction by previous noninvasive imaging, now with severe LV dysfunction 4. NSVT on telemetry 5. Small bilateral pleural effusions 6. Chronic left bundle branch block 7. Hx HTN 8. Venous insufficiency 9. 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 Remains in afib with no recurrent NSVT. Not clear if the thrombocytopenia was due to HIT but is on Argatroban for now pending lab studies. Holding plan for Renal biopsy for now, planned for possible skin biopsy which would carry a much lower bleeding risk. Continue on the higher dose Toprol XL 100 mg daily. Recommend adding low-dose Lipitor 20 mg by mouth daily when medically cleared. Resume daily ASA when medically cleared. Despite the cardiomyopathy he is not a candidate for addition of LISETH-I at this time but this will need to be considered in the future. Jonh Stanley MD [facility] Continue telemetry? Yes
[2016-09-07 13:05] LABS: PTT 72 SEC (25-37)
--- NOTE | 2016-09-07 13:40 | PN- Infect Dx ---
Subjective Subjective: Afebrile on steroids. He offers no specific complaints and notes improvement in his right thigh pain. Objective Last 24 Hrs of Vital Signs/I&O Vital Signs Date Time Temp Pulse Resp B/P Pulse O2 O2 Flow FiO2 Ox Delivery Rate 09/07 1237 96 Nasal 2.0L Cannula 09/07 1108 96 Room Air 09/07 0800 96.3 67 12 152/88 96 Room Air 09/07 0633 97.7 90 14 140/88 98 Room Air 09/07 0121 96 Room Air 09/07 0000 96.9 91 18 130/80 96 Room Air 09/07 0000 96 Room Air 09/06 1602 95 Room Air 09/06 1600 97.2 82 22 128/76 93 Room Air Intake & Output 09/07 1600 09/07 0800 09/07 0000 Intake Total 300 346 Output Total 350 200 Balance -50 146 Intake, IV 60 226 Intake, Oral 240 120 Number 1 Bowel Movements Output, Urine 350 200 Patient 224 lb Weight Physical Exam Other Physical Findings: He appears comfortable in no acute distress HEENT ulcers on the hard palate Neck right IJ dialysis catheter in place with no inflammation at the site Lungs are clear with audible wheezes Heart irregular rhythm with no murmur Extremities decreased erythema, swelling and tenderness of the right thigh; ecchymosis with overlying ulcer over the anterior aspect of his right leg unchanged, with no erythema, tenderness or edema Results Last 24 Hours of Lab Results: Laboratory Tests 09/07 09/07 09/07 09/07 09/07 1248 1045 0850 0655 0600 Coagulation PT Cancelled INR Cancelled APTT (25 - 37 SEC) 72 H 76 H 72 H 59 H 09/07 09/07 09/06 0345 0035 2009 Chemistry Sodium (137 - 145 mmol/L) 136 L Potassium (3.5 - 5.1 mmol/L) 4.9 Chloride (98 - 107 mmol/L) 102 Carbon Dioxide (22 - 30 mmol/L) 24 Anion Gap (5 - 16) 11 BUN (9 - 20 mg/dL) 77 H Creatinine (0.7 - 1.2 mg/dL) 3.4 H Estimated GFR (>60 ml/min) 18 L Glucose (65 - 99 mg/dL) 171 H Calcium (8.4 - 10.2 mg/dL) 8.9 Phosphorus (2.5 - 4.5 mg/dL) 6.4 H Magnesium (1.6 - 2.3 mg/dL) 2.4 H Total Bilirubin (0.2 - 1.3 mg/dL) 1.3 AST (17 - 59 U/L) 24 ALT (21 - 72 U/L) 47 Albumin (3.5 - 5.0 g/dL) 2.0 L Coagulation PT (9.4 - 12.5 SEC) 32.1 H INR (0.90 - 1.17) 3.09 H APTT (25 - 37 SEC) 57 H 61 H 51 H Hematology CBC w Diff MAN DIFF ORDERED WBC (4.8 - 10.8 /CUMM) 30.3 *H RBC (4.70 - 6.10 /CUMM) 3.91 L Hgb (14.0 - 18.0 G/DL) 11.3 L Hct (42 - 52 %) 34.5 L MCV (80.0 - 94.0 FL) 88.3 MCH (27.0 - 31.0 PG) 29.0 RDW (11.5 - 14.5 %) 15.5 H Plt Count (130 - 400 /CUMM) 136 MPV (7.4 - 10.4 FL) 8.9 Gran % (42.2 - 75.2 %) 90.6 H Lymphocytes % (20.5 - 51.1 %) 1.9 L Monocytes % (1.7 - 9.3 %) 7.5 Eosinophils % (0 - 5 %) 0 Basophils % (0.0 - 2.0 %) 0 L Absolute Granulocytes (1.4 - 6.5 /CUMM) 27.4 H Segmented Neutrophils (42.2 - 75.2 %) 87 H Band Neutrophils (0.0 - 5.0 %) 2 Absolute Lymphocytes (1.2 - 3.4 /CUMM) 0.6 L Lymphocytes (20.5 - 51.1 %) 4 L Monocytes (1.7 - 9.3 %) 7 Absolute Monocytes (0.10 - 0.60 /CUMM) 2.3 H Absolute Eosinophils (0.0 - 0.7 /CUMM) 0 Absolute Basophils (0.0 - 0.2 /CUMM) 0 Platelet Estimate (ADEQUATE) ADEQUATE Hypochromic-Microcytic 1+ PUBS MCHC (33.0 - 37.0 G/DL) 32.8 L Other Body Source Fld Total RBCs Counted (%) 100 09/06 09/06 09/06 1830 1630 1430 Chemistry Sodium (137 - 145 mmol/L) 137 Potassium (3.5 - 5.1 mmol/L) 5.0 Chloride (98 - 107 mmol/L) 100 Carbon Dioxide (22 - 30 mmol/L) 26 Anion Gap (5 - 16) 11 BUN (9 - 20 mg/dL) 70 H Creatinine (0.7 - 1.2 mg/dL) 3.3 H Estimated GFR (>60 ml/min) 19 L Glucose (65 - 99 mg/dL) 185 H Calcium (8.4 - 10.2 mg/dL) 8.4 Phosphorus (2.5 - 4.5 mg/dL) 6.0 H Magnesium (1.6 - 2.3 mg/dL) 2.3 Total Bilirubin (0.2 - 1.3 mg/dL) 1.3 AST (17 - 59 U/L) 32 ALT (21 - 72 U/L) 44 Albumin (3.5 - 5.0 g/dL) 2.1 L Coagulation APTT (25 - 37 SEC) 64 H 56 H 56 H Hematology CBC w Diff NO MAN DIFF REQ WBC (4.8 - 10.8 /CUMM) 30.0 H RBC (4.70 - 6.10 /CUMM) 4.08 L Hgb (14.0 - 18.0 G/DL) 11.8 L Hct (42 - 52 %) 36.1 L MCV (80.0 - 94.0 FL) 88.5 MCH (27.0 - 31.0 PG) 29.0 RDW (11.5 - 14.5 %) 15.4 H Plt Count (130 - 400 /CUMM) 134 MPV (7.4 - 10.4 FL) 8.8 Gran % (42.2 - 75.2 %) 95.2 H Lymphocytes % (20.5 - 51.1 %) 1.7 L Monocytes % (1.7 - 9.3 %) 3.1 Eosinophils % (0 - 5 %) 0 Basophils % (0.0 - 2.0 %) 0 L Absolute Granulocytes (1.4 - 6.5 /CUMM) 28.6 H Absolute Lymphocytes (1.2 - 3.4 /CUMM) 0.5 L Absolute Monocytes (0.10 - 0.60 /CUMM) 0.9 H Absolute Eosinophils (0.0 - 0.7 /CUMM) 0 Absolute Basophils (0.0 - 0.2 /CUMM) 0 PUBS MCHC (33.0 - 37.0 G/DL) 32.7 L Last 24 Hours of Hemal Results: Blood cultures 2 September 03 remain negative Recent Imaging Studies: Dopplers of both lower extremities September 05 negative Assessment/Plan Impression: Stable with decreased inflammation of the right thigh on Unasyn Day 4 for possible cellulitis, perhaps secondary to his recent skin biopsy or to the right lower extremity ulcer, with temperatures remaining normal (on steroids) and white blood cell count still markedly elevated, 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 Suggestion: 1. Await repeat skin biopsy 2. Continue Unasyn
[2016-09-07 14:56] LABS: PTT 75 SEC (25-37)
[2016-09-07 16:00] VITALS: BP 160/90
[2016-09-07 18:29] LABS: PTT 76 SEC (25-37)
--- NOTE | 2016-09-07 19:13 | Event Note ---
Event Note Event Note: I called the lab regarding getting the specimen bottle with Nick fixating agent for skin biopsy with immunofluorescence. They are not sure what it is. Due to concerns that we need the specimen fresh (ie to be read by a pathologist right away), and that we might not the right fixating agent, Dr. Bonilla will do the skin biopsy in the morning tomorrow.
[2016-09-07 19:52] LABS: PTT 73 SEC (25-37)
--- NOTE | 2016-09-07 21:53 | NUR ---
2117 THIS RN WENT INTO PT ROOM EKG ALARMING AND SHOWING ASYSTOLE. PT UNRESPONSIVE TO VERBAL STIMULI & SUE RODGERS DID STERNAL RUB AND TOOK A FEW MINUTES TO REPSOND. PT WAS IN AND OUT OF CONSCIOUSNESS. HR IN 30'S. HR INCREASED TO 48 IN 2 MINUTES. STAT EKG ORDERED AND DONE, SHOWED JUNCTIONAL ESCAPE RHYTHM. SUE RODGERS PLACED DEFIBRILLATOR PADS ON PT. MD SIDHU SPOKE TO MD THOMAS, STATED NOT TO PACE. GIVE ATROPINE IF HEART RATE BELOW 40 OR SYMPTOMATIC. PT C/O HEAVINESS ON CHEST 10/03. TROPONINS DRAWN. PLACED ON 2 L O2. PT IS TALKING NOW, HR IN 80'S AFIB. PER MD TOHMAS METOPROLOL D/C. CONTINUE TO MONITOR.
[2016-09-07 22:00] VITALS: BP 160/99
[2016-09-08] VITALS: BP 162/84
[2016-09-08 00:40] LABS: PTT 71 SEC (25-37)
[2016-09-08 06:35] LABS: ABSOLUTE BASOPHIL COUNT 0.2 /CUMM (0.0-0.2); ABSOLUTE EOSINOPHIL COUNT 0 /CUMM (0.0-0.7); ABSOLUTE GRANULOCYTE CT 21.6 /CUMM (1.4-6.5); ABSOLUTE LYMPH COUNT 0.7 /CUMM (1.2-3.4); ABSOLUTE MONOCYTE COUNT 2.5 /CUMM (0.10-0.60); BASOPHIL % 0.7 % (0.0-2.0); EOSINOPHIL % 0 % (0-5); GRANULOCYTE % 86.2 % (42.2-75.2); HEMATOCRIT 32.6 % (42-52); MEAN CORPUSCULAR HGB 29.1 PG (27.0-31.0); MEAN CORPUSCULAR HGB CONC 33.2 G/DL (33.0-37.0); MEAN CORPUSCULAR VOLUME 87.8 FL (80.0-94.0); MEAN PLATELET VOLUME 8.5 FL (7.4-10.4); PLATELET COUNT 151 /CUMM (130-400); RBC DISTRIBUTION WIDTH 15.3 % (11.5-14.5); RED BLOOD CELL CT 3.71 /CUMM (4.70-6.10); WHITE BLOOD CELL COUNT 25.1 /CUMM (4.8-10.8)
[2016-09-08 06:45] LABS: PTT 79 SEC (25-37)
[2016-09-08 07:00] VITALS: BP 158/98
--- NOTE | 2016-09-08 08:24 | PN- Housestaff ---
RUDOLPH BAKER,KARYN 09/08/16 0824: Subjective Follow-up For: syncope asystole Tele-Events Since Last Visit: Asystole for about a 2 minutes between 918-920pm. Subsequently bradycardic to 30, with new RBBB. Now HR in the 80s. Subjective: Pt was noticably anxious this morning while recalling the events last night. He reports his heart stopped 4 or 5 times, confirmed with the nurse that he did lose consciousness when his heart monitor was showing asystole. EKG obtained at 926 pm, showed rate of 33 with significant AV blockage. He was disoriented for a few seconds when he regained consciousness, and was feeling weak. Dr. Amezcua (cardiology) discussed with Dr. Coombs today about putting an urgent pacemaker, and to resume BB after pacemaker has been placed (hx of NSVT this admission), we have put order for NPO and discontinued argatroban since this morning. Still awaiting time for OR. Will discontinue unasyn after pacemaker implantation. Would need to decide on anticoag (for a fib) after the surgery. Also await skin biospsy. We got the bottle and fixative from the lab this morning. Still feeling constipated, ordered another 1X supp. He also reports difficulty sleeping, ordered melatonin at bedtime. Given 2mg one time IV morphine for pain. Reports that cough with sputum has improved, abdominal pain comes and goes, not having any abdominal pain currently, and legs feeling itchy. Review of Systems Constitutional: Reports: see HPI. Objective Last 24 Hrs of Vital Signs/I&O Vital Signs Date Time Temp Pulse Resp B/P Pulse O2 O2 Flow FiO2 Ox Delivery Rate 09/08 0000 Nasal 2.0L Cannula 09/08 0000 97.1 77 22 162/84 95 Nasal 2.0L Cannula 09/07 2200 97.8 85 12 160/99 99 Nasal 2.0L Cannula 09/07 1959 97 Room Air Room Air 09/07 1600 96.7 82 16 160/90 92 Room Air 09/07 1237 96 Nasal 2.0L Cannula 09/07 1108 96 Room Air Intake & Output 09/08 1600 09/08 0800 09/08 0000 Intake Total 482.4 280 Output Total 400 300 Balance 82.4 -20 Intake, IV 82.4 160 Intake, Oral 400 120 Number 0 Bowel Movements Output, Urine 400 300 Physical Exam General Appearance: Alert, Oriented X3, Cooperative, Mild Distress Skin: circumferential purpura involving the RLE HEENT: Atraumatic Cardiovascular: irregular rate Lungs: Clear to Auscultation Abdomen: Normal Bowel Sounds, Soft, No Tenderness Extremities: dependent pitting edema 2+ Current Medications: Current Medications Sig/Dagoberto Start time Last Medication Dose Route Stop Time Status Admin Acetaminophen 650 MG .STK-MED ONE 09/07 204 DC PO 09/07 204 Acetaminophen 650 MG Q6P PRN 08/23 2345 AC 09/07 PO 204 Albuterol Sulfate 3 ML Q4P PRN 08/30 1645 AC 09/07 INH 2115 Ampicillin Sodium/ 3,000 MG Q12 09/04 1000 AC 09/08 Sulbactam Sodium IV 0951 Sodium Chloride 100 ML Argatroban 250 MG Q24H 09/05 2315 DC 09/07 Sodium Chloride 250 ML IV 0454 Atropine Sulfate 1 MG .STK-MED ONE 09/07 212 DC IM 09/07 212 Benzocaine/Menthol 1 SUKH Q4P PRN 08/31 1100 AC PO Benzonatate 100 MG TID PRN 08/25 1115 AC 08/30 PO 1652 Bisacodyl 10 MG ONCE ONE 09/08 0745 DC 09/08 [place] 09/08 0746 0950 Bisacodyl 10 MG .STK-MED ONE 09/07 1658 DC [place] 09/07 1659 Bisacodyl 5 MG DAILY 08/27 1358 AC 09/08 PO 0951 Cholecalciferol 1,000 IU DAILY 08/29 1046 AC 09/08 PO 0951 Folic Acid 1 MG DAILY 08/24 1000 AC 09/08 PO 0951 Furosemide 20 MG ONCE ONE 09/07 1430 DC 09/07 IV 09/07 1431 1442 Guaifenesin 10 ML .STK-MED ONE 09/07 1231 DC PO 09/07 1232 Guaifenesin 10 ML Q6P PRN 08/26 1530 AC 09/07 PO 1235 Lidocaine 20 ML .STK-MED ONE 09/07 1838 DC IA 09/07 1839 Melatonin 5 MG AT BEDTIME 09/08 2200 AC PO Metoprolol Succinate 100 MG DAILY 09/03 1000 DC 09/07 PO 0921 Morphine Sulfate 2 MG ONCE ONE 09/08 0745 DC IV 09/08 0746 Multivitamins 1 TAB DAILY 08/24 1000 AC 09/08 PO 0951 Nitroglycerin 0.4 MG ONCE ONE 09/07 2145 CAN SL 09/07 214 Omeprazole 40 MG DAILY AC 08/29 1045 AC 09/08 PO 0640 Phenol 2 SPRAY Q2P PRN 08/30 0900 AC 09/08 EXT 0952 Polyethylene Glycol 17 GM DAILY 08/27 1358 AC 09/08 PO 0950 Prednisone 60 MG DAILY 09/01 1000 AC 09/08 PO 0951 Thiamine HCl 100 MG DAILY 08/24 1000 AC 09/08 PO 0951 Last 24 Hrs of Lab/Hemal Results Last 24 Hrs of Labs/Mics: Laboratory Tests 09/08/16 0610: Anion Gap 9, Estimated GFR 17 L, BUN/Creatinine Ratio 28.0 H, Phosphorus 7.8 H, Magnesium 2.3, APTT 79 H, CBC w Diff NO MAN DIFF REQ, RBC 3.71 L, MCV 87.8, MCH 29.1, RDW 15.3 H, MPV 8.5, Gran % 86.2 H, Lymphocytes % 2.9 L, Monocytes % 10.2 H, Eosinophils % 0, Basophils % 0.7, Absolute Granulocytes 21.6 H, Absolute Lymphocytes 0.7 L, Absolute Monocytes 2.5 H, Absolute Eosinophils 0, Absolute Basophils 0.2, PUBS MCHC 33.2 09/08/16 0000: APTT 71 H 09/07/16 2140: Troponin I 0.02 09/07/16 1845: APTT 73 H 09/07/16 1700: APTT 76 H 09/07/16 1439: APTT 75 H 09/07/16 1248: APTT 72 H Assessment/Plan Assessment: 71-year-old man with PMH of atrial fibrillation on Coumadin, CAD status post stents, with varicose veins, hospitalized 3 weeks [employer] after trauma to the right leg requiring 2 units of blood, with persistent swelling, discomfort and discoloration of the right leg since then, self treated persistent leg swelling with Lasix several days prior to admission, admitted on August 23 after presenting to the ED with a diffuse petechial rash that was more localized one week [employer], with no associated fevers or chills. Pt was initially admitted to general medicine. He was transferred to telemetry from general medicine for close cardiac monitoring while aspirin and warfarin were held pending renal biopsy. Skin biopsy on 08/26/[address] 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 He also developed CHARLES ( with BUN/cr up to 124/7.4 , was 27/1.7 on admission) and hyperkalemia (up to 6.3 ). 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 His K and kidney functions has improved with dialysis. After steroids was started, developed leukocytosis with WBC up to 43.3 (normal wbc on admission), afebrile (although on steroids) with no left shift, and did not improve with unasyn for presumable RLE cellulitis. Leukocytosis improving. Renal biopsy was delayed initially due to supratherapeutic INR (pt on warfarin for afib) for which renal did not feel comfortable reversing with FFP. So heparin started while warfarin held. On the day renal biopsy was planned, there was a concern that he might have developed heparin induced thrombocytopenia ( highest 186, lowest 72), with a high probability pre-test likelihood based on 4T score, so heparin drip was subsequently stopped, and argatroban drip started. Heparin induced platelet ab negative and heparin-pf4 ab od 0.013 (negative). HIT unlikely at this point, with platelet trending up to 151. Pt was transferred to ICU for close nursing monitoring while on argatroban drip. Of note, pt had episode of NSVT on telemetry, for which his metoprolol dose was increased to 100 without subsequent recurrence. However, on 09/07/16 evening, he had 4 episodes of prolonged asystole (up to 2 minutes each time) in a 30 minute timeframe, he is DNR/DNI. No chest compressions done, but he regained consciousness with sternal rubs. EKG showed advanced AV block with HR in the low 30s, and a new RBBB. Metoprolol subsequently held pending pacemaker placement. As pacemaker placement could not be scheduled today, and planned for tomorrow, we will have him NPO after midnight, adn continue to hold off on argatroban given the possibility that he might need emergency transvenous pacer vs pacemaker placement prior to the scheduled procedure, although we are aware that argatroban has a short half life. We think the likelihood of HIT is low at this point given how quickly his platelet improved, negative antibodies, and lack of evidence for thrombosis. IF at any time, he has recurrent pauses/syncope, we will contact cardiology (Dr. Amezcua's group) and Dr. Coombs stat! Would also consider getting renal biopsy tomorrow as he is already off argatroban. Active issues include: # Hx of asystole, advanced av block, new RBBB # Constipation # Possible Henoch-Schnlein purpura on prednisone and dialysis # Possible HIT # Constipation # Leukocytosis, on steroids , with RLE pain, possible cellulits, on Unasyn # Atrial fibrillation (was on warfarin at home, currently being held) # Episode of NSVT with no reccurent epidose after increasing metoprolol # Hx of CAD (aspirin on hold pending biopsy, await starting statin) # Hx of asystole, advanced av block, new RBBB * Plan for pacemaker placement with Dr. Coombs today/tomorrow * Follow stat echo 09/08/16 * Argatroban on hold * NPO pending surgery * Metoprolol on hold pending pacemaker placement * Need to address anticoagulation for afib after pacemaker placement (back on argatroban vs heparin - serotonin release assay still pending) # Henoch-Schnlein purpura - Diffuse petechial rash, first noted one week prior to admission, and persistent ecchymosis, edema and mild discomfort of the right leg - Subsequently developed CHARLES and hyperkalemia with microscopic hematuria, with improvement of creatinine due to dialysis - Cough with hemoptysis (not likely to be pulmonary renal based on chest ct) - Elevated ESR 36, CRP >15, RF 13.9 - Negative hepatitis panel, HIV, MARTIN, ANCA, cryoglobulin. Normal C3 and C4. * Pending renal biopsy by IR pending nephrology decision. Needs to be off argatroban for 12-18 hours. * Plan for repeat skin biopsy with fluorescence with surgery (Dr. Bonilla) * Nephrology on board * Dialysis started * Hematology on board (Dr. High) * on 60mg PO prednisone daily * Pulm on board * 20mg IV lasix given on 09/07 for edema. 40mg IV lasix X 1 given on 09/08 # Possible HIT - Platelet down from highest 186 --> lowest 72, now trending up - Received heparin from 09/01/16 to 09/04/16 - 4T high probability for HIT - Heparin induced platelet ab negative and heparin-pf4 ab od 0.013 (negative). * Serotonin release assay pending * Monitor CBC daily * Monitor for thombosis closely # Constipation - Given 2 X suppository * Order more suppository as needed # Hemoptysis with cough - Due to warfarin use? - Sputum with streak of blood * Pulm consult appreciated, Dr. Jensen has signed off # Atrial fibrillation ( on coumadin at home) - CHADVASc score is 4 putting him at mod-high risk for stroke, on ArgatrobanCoumadin on hold due to possible renal biopsy * Heparin drip discontinued due to possible HIT * Argatroban drip on hold for pacemaker implantation * No need to check INR as might be falsely elevated due to argatroban drip # Hx of CAD/prior myocardial infarction with mild to moderate left ventricular dysfunction by previous noninvasive imaging, now with severe LV dysfunction - Despite the cardiomyopathy he is not a candidate for addition of LISETH-I at this time * Restart aspirin 81 mg when medically cleared * Cardio recommend adding low-dose Lipitor 20 mg by mouth daily when medically cleared # One episode of NSVT on telemetry, chronic LBBB (resolved) * Increased metoprolol to Toprol XL 100 mg daily, now on hold # Hx of HTN * Toprol on hold # Leukocytosis up to 43.3, on steroids # Possible Cellulitis of right thigh secondary to lower extremity ulceration - X-ray of the right tibia/fibula negative. - Doppler of the right lower extremity negative * ID input appreciated * Unasyn 3000 q12 started on 09/04/16 pm. WBC continues to be elevated despite being on abx. Now day #5 of abx. Discontinue unasyn after pacemaker placement. * Wound consult appreciated * Monitor WBC * Xeroform and leg elevation above his heart Diet: NPO pending surgery DVT ppx: argatroban onhold for surgery DNR/DNI In the event of any changes or updates please contact his son Paulo at or [email or web address] Sandra who is a hospice nurse at [phone] Problem List: 1. AV block 2. Henoch-Schonlein purpura Pain Ratin Pain Location: RLE Pain Goal: Pain 4 or less Pain Plan: morphine X 1 Tomorrow's Labs & Rationales: CBC for leukocytosis BEP for charles on dialysis mag and phos Consulting Request: Consulting Specialty: Hematology/Oncology MANOLO AMEZCUA MD 09/08/16 1410: Attending MD Review Statement Attending Statement Attending MD Statement: examined this patient, discuss w/resident/PA/HONING JOB SETTER, agreed w/resident/PA/HONING JOB SETTER, reviewed EMR data (avail), discussed with nursing, discussed with case mgmt, reviewed images Attending Assessment/Plan: Patient is worried about his ongoing issues. His main complaint is constipation but he is worried about what happened last night. Events overnight noted and patient went into right bundle branch block/advanced heart block. And had episodes of asystole associated with loss of consciousness. I spoke to Dr. Gaudencio Garcia and he needs a pacemaker. Especially because he'll need the beta freddy for SVT and non-SVT that he is having concurrently. I also spoke to Dr. Coombs. At this point the plan is to keep him off the argatroban if he needs any urgent transvenous pacing tonight. And will do the permanent pacemaker in a.m. My suspicion for HIT is low, his platelet count has come up nicely. His platelet factor antibody has been negative , awaiting his serotonin release assay. And the risks of keeping him on argatroban while he is having these episodes that may require urgent pacemaker placement is too high. Will watch him off any anticoagulation with the plan for a pacemaker in the morning. I'll contact Dr. Bonilla again for a skin biopsy.
--- NOTE | 2016-09-08 08:46 | PN- Cardiology ---
Subjective Subjective: Last night, had several episodes of syncope, associated with advanced AV block, and heart rates less than 30. Configuration of QRS was a right bundle branch configuration(normally he has a left bundle branch configuration with atrial fibrillation. Since then patient has remained stable hemodynamically and with heart rates 70-80 all night. Yesterday had an episode of supraventricular tachycardia and hence beta blockers was initiated. At the moment his only complaint is constipation. Objective Vital Signs and I&Os Vital Signs Date Time Temp Pulse Resp B/P Pulse O2 O2 Flow FiO2 Ox Delivery Rate 09/08 0000 Nasal 2.0L Cannula 09/08 0000 97.1 77 22 162/84 95 Nasal 2.0L Cannula 09/07 2200 97.8 85 12 160/99 99 Nasal 2.0L Cannula 09/07 1959 97 Room Air Room Air 09/07 1600 96.7 82 16 160/90 92 Room Air 09/07 1237 96 Nasal 2.0L Cannula 09/07 1108 96 Room Air Intake & Output 09/08 1600 09/08 0800 09/08 0000 09/07 1600 09/07 0800 09/07 0000 Intake Total 482.4 280 400 300 346 Output Total 400 300 350 350 200 Balance 82.4 -20 50 -50 146 Intake, IV 82.4 160 100 60 226 Intake, Oral 400 120 300 240 120 Number 0 1 Bowel Movements Output, Urine 400 300 350 350 200 Patient 224 lb Weight Physical Exam: General exam patient comfortable alert oriented Head normocephalic/atraumatic eyes sclera anicteric conjunctiva showed no pallor extraocular muscles were normal Chest lungs were clear bilaterally Heart irregular rhythm with a ventricular rate of around 86, and a grade 1 to 2/ 6 systolic murmur. Abdomen soft no organomegaly nontender. Extremities bilateral ecchymosis and venous stasis Neurological no gross motor or sensory deficits Current Medications: Current Medications Sig/Dagoberto Start time Last Medication Dose Route Stop Time Status Admin Acetaminophen 650 MG .STK-MED ONE 09/07 2041 DC PO 09/07 2042 Acetaminophen 650 MG Q6P PRN 08/23 2345 AC 09/07 PO 2044 Albuterol Sulfate 3 ML Q4P PRN 08/30 1645 AC 09/07 INH 2115 Ampicillin Sodium/ 3,000 MG Q12 09/04 1000 AC 09/07 Sulbactam Sodium IV 2213 Sodium Chloride 100 ML Argatroban 250 MG Q24H 09/05 2315 AC 09/07 Sodium Chloride 250 ML IV 0454 Atropine Sulfate 1 MG .STK-MED ONE 09/07 2120 DC IM 09/07 2121 Benzocaine/Menthol 1 SUKH Q4P PRN 08/31 1100 AC PO Benzonatate 100 MG TID PRN 08/25 1115 AC 08/30 PO 1652 Bisacodyl 10 MG ONCE ONE 09/08 0745 DC MA 09/08 0746 Bisacodyl 10 MG .STK-MED ONE 09/07 1658 DC MA 09/07 1659 Bisacodyl 5 MG DAILY 08/27 1358 AC 09/07 PO 0921 Cholecalciferol 1,000 IU DAILY 08/29 1046 AC 09/07 PO 0921 Folic Acid 1 MG DAILY 08/24 1000 AC 09/07 PO 0921 Furosemide 20 MG ONCE ONE 09/07 1430 DC 09/07 IV 09/07 1431 1442 Guaifenesin 10 ML .STK-MED ONE 09/07 1231 DC PO 09/07 1232 Guaifenesin 10 ML Q6P PRN 08/26 1530 AC 09/07 PO 1235 Lidocaine 20 ML .STK-MED ONE 09/07 1838 DC IA 09/07 1839 Melatonin 5 MG AT BEDTIME 09/08 2200 AC PO Metoprolol Succinate 100 MG DAILY 09/03 1000 DC 09/07 PO 0921 Morphine Sulfate 2 MG ONCE ONE 09/08 0745 DC IV 09/08 0746 Multivitamins 1 TAB DAILY 08/24 1000 AC 09/07 PO 0921 Nitroglycerin 0.4 MG ONCE ONE 09/07 2145 CAN SL 09/07 214 Omeprazole 40 MG DAILY AC 08/29 1045 AC 09/08 PO 0640 Phenol 2 SPRAY Q2P PRN 08/30 0900 AC 09/06 EXT 0048 Polyethylene Glycol 17 GM DAILY 08/27 1358 AC 09/07 PO 0922 Prednisone 60 MG DAILY 09/01 1000 AC 09/07 PO 0921 Thiamine HCl 100 MG DAILY 08/24 1000 AC 09/07 PO 0921 Results Last 48 Hrs of Labs/Mics: Laboratory Tests 09/08/16 0610: Anion Gap 9, Estimated GFR 17 L, BUN/Creatinine Ratio 28.0 H, Phosphorus 7.8 H, Magnesium 2.3, APTT 79 H, CBC w Diff NO MAN DIFF REQ, RBC 3.71 L, MCV 87.8, MCH 29.1, RDW 15.3 H, MPV 8.5, Gran % 86.2 H, Lymphocytes % 2.9 L, Monocytes % 10.2 H, Eosinophils % 0, Basophils % 0.7, Absolute Granulocytes 21.6 H, Absolute Lymphocytes 0.7 L, Absolute Monocytes 2.5 H, Absolute Eosinophils 0, Absolute Basophils 0.2, PUBS MCHC 33.2 09/08/16 0000: APTT 71 H 09/07/16 2140: Troponin I 0.02 09/07/16 1845: APTT 73 H 09/07/16 1700: APTT 76 H 09/07/16 1439: APTT 75 H 09/07/16 1248: APTT 72 H 09/07/16 1045: APTT 76 H 09/07/16 0850: APTT 72 H 09/07/16 0655: APTT 59 H 09/07/16 0600: PT Cancelled, INR Cancelled 09/07/16 0345: Anion Gap 11, Estimated GFR 18 L, Glucose 171 H, Calcium 8.9, Phosphorus 6.4 H, Magnesium 2.4 H, Total Bilirubin 1.3, AST 24, ALT 47, Albumin 2.0 L, PT 32.1 H, INR 3.09 H, APTT 57 H, CBC w Diff MAN DIFF ORDERED, RBC 3.91 L, MCV 88.3, MCH 29.0, RDW 15.5 H, MPV 8.9, Gran % 90.6 H, Lymphocytes % 1.9 L, Monocytes % 7.5, Eosinophils % 0, Basophils % 0 L, Absolute Granulocytes 27.4 H, Segmented Neutrophils 87 H, Band Neutrophils 2, Absolute Lymphocytes 0.6 L, Lymphocytes 4 L, Monocytes 7, Absolute Monocytes 2.3 H, Absolute Eosinophils 0 , Absolute Basophils 0, Platelet Estimate ADEQUATE, Hypochromic-Microcytic 1+, PUBS MCHC 32.8 L, Fld Total RBCs Counted 100 09/07/16 0035: APTT 61 H 09/06/16 2010: APTT 51 H 09/06/16 1830: Anion Gap 11, Estimated GFR 19 L, Glucose 185 H, Calcium 8.4, Phosphorus 6.0 H, Magnesium 2.3, Total Bilirubin 1.3, AST 32, ALT 44, Albumin 2.1 L, APTT 64 H, CBC w Diff NO MAN DIFF REQ, RBC 4.08 L, MCV 88.5, MCH 29.0, RDW 15.4 H, MPV 8.8, Gran % 95.2 H, Lymphocytes % 1.7 L, Monocytes % 3.1, Eosinophils % 0, Basophils % 0 L, Absolute Granulocytes 28.6 H, Absolute Lymphocytes 0.5 L, Absolute Monocytes 0.9 H, Absolute Eosinophils 0, Absolute Basophils 0, PUBS MCHC 32.7 L 09/06/16 1630: APTT 56 H 09/06/16 1430: APTT 56 H 09/06/16 1230: APTT 51 H 09/06/16 1015: APTT 52 H 09/06/16 0840: APTT 57 H Assessment/Plan Assessment/Plan In summary this 71-year-old gentleman has the following problems 1. 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 Persistent atrial fibrillation on anticoagulation with Coumadin on hold 3. History of coronary artery disease/prior myocardial infarction with mild to moderate left ventricular dysfunction by previous noninvasive imaging, now with severe LV dysfunction 4. NSVT on telemetry 5. Small bilateral pleural effusions 6. Chronic left bundle branch block 7. Hx HTN 8. Venous insufficiency 9. 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 He has intermittent right and left bundle branch block transmission. He has had episodes of syncope. He has cardiomyopathy with left ventricular ejection fraction of 25%. He would need a permanent pacemaker. At this time a simple VVI pacemaker would suffice because of his multiple current medical issues. I will contact Dr. Coombs for permanent pacemaker insertion. After he has a pacemaker inserted blockers can be reinitiated. Continue telemetry? Yes
--- NOTE | 2016-09-08 10:07 | PN- Infect Dx ---
Subjective Subjective: Afebrile without complaints. He had several episodes of syncope overnight associated with advanced AV block, with heart rates less than 30, with plans for possible pacemaker later today. Objective Last 24 Hrs of Vital Signs/I&O Vital Signs Date Time Temp Pulse Resp B/P Pulse O2 O2 Flow FiO2 Ox Delivery Rate 09/08 0000 Nasal 2.0L Cannula 09/08 0000 97.1 77 22 162/84 95 Nasal 2.0L Cannula 09/07 2200 97.8 85 12 160/99 99 Nasal 2.0L Cannula 09/07 1959 97 Room Air Room Air 09/07 1600 96.7 82 16 160/90 92 Room Air 09/07 1237 96 Nasal 2.0L Cannula 09/07 1108 96 Room Air Intake & Output 09/08 1600 09/08 0800 09/08 0000 Intake Total 482.4 280 Output Total 400 300 Balance 82.4 -20 Intake, IV 82.4 160 Intake, Oral 400 120 Number 0 Bowel Movements Output, Urine 400 300 Physical Exam Other Physical Findings: He appears comfortable in no acute distress Lungs are clear Heart irregular rhythm with no murmur Extremities no further erythema of the right thigh; pitting edema of both thighs , with minimal if any tenderness on palpation; ulcer with ecchymosis/skin changes of the right leg below the knee unchanged Results Last 24 Hours of Lab Results: Laboratory Tests 09/08 09/08 09/07 09/07 0610 0000 2140 1845 Chemistry Sodium (137 - 145 mmol/L) 138 Potassium (3.5 - 5.1 mmol/L) 4.9 Chloride (98 - 107 mmol/L) 104 Carbon Dioxide (22 - 30 mmol/L) 25 Anion Gap (5 - 16) 9 BUN (9 - 20 mg/dL) 98 H Creatinine (0.7 - 1.2 mg/dL) 3.5 H Estimated GFR (>60 ml/min) 17 L BUN/Creatinine Ratio (7 - 25 %) 28.0 H Phosphorus (2.5 - 4.5 mg/dL) 7.8 H Magnesium (1.6 - 2.3 mg/dL) 2.3 Troponin I (<0.11 ng/ml) 0.02 Coagulation APTT (25 - 37 SEC) 79 H 71 H 73 H Hematology CBC w Diff NO MAN DIFF REQ WBC (4.8 - 10.8 /CUMM) 25.1 H RBC (4.70 - 6.10 /CUMM) 3.71 L Hgb (14.0 - 18.0 G/DL) 10.8 L Hct (42 - 52 %) 32.6 L MCV (80.0 - 94.0 FL) 87.8 MCH (27.0 - 31.0 PG) 29.1 RDW (11.5 - 14.5 %) 15.3 H Plt Count (130 - 400 /CUMM) 151 MPV (7.4 - 10.4 FL) 8.5 Gran % (42.2 - 75.2 %) 86.2 H Lymphocytes % (20.5 - 51.1 %) 2.9 L Monocytes % (1.7 - 9.3 %) 10.2 H Eosinophils % (0 - 5 %) 0 Basophils % (0.0 - 2.0 %) 0.7 Absolute Granulocytes (1.4 - 6.5 /CUMM) 21.6 H Absolute Lymphocytes (1.2 - 3.4 /CUMM) 0.7 L Absolute Monocytes (0.10 - 0.60 /CUMM) 2.5 H Absolute Eosinophils (0.0 - 0.7 /CUMM) 0 Absolute Basophils (0.0 - 0.2 /CUMM) 0.2 PUBS MCHC (33.0 - 37.0 G/DL) 33.2 09/07 09/07 09/07 09/07 1700 1439 1248 1045 Coagulation APTT (25 - 37 SEC) 76 H 75 H 72 H 76 H Last 24 Hours of Hemal Results: No recent cultures Assessment/Plan Impression: New problem of heart block, for which pacemaker placement is scheduled, possibly for later today, with patient otherwise stable with resolution of the right thigh cellulitis on Unasyn Day 5. He remains afebrile (on steroids) with white blood cell count still elevated, though decreased, likely secondary to steroids for his presumed vasculitis. A repeat skin biopsy for immunofluorescence has apparently been rescheduled for today. Suggestion: 1. Await pacemaker placement 2. Await repeat skin biopsy 3. Discontinue Unasyn after pacemaker placement
--- NOTE | 2016-09-08 10:48 | PN- Nephrology ---
Assessment/Plan Assessment: 1. Acute kidney injury. 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 His serum creatinine is improving with a creatinine of 3.5. His urine output is excellent. It is noted he did receive Lasix. 2. Status post episodes of AV block and syncope overnight. 3. Volume status area he does appear to be a bit volume overloaded. Given his serum creatinine of 3.5, I think a dose of 40 mg IV for furosemide would be more appropriate and perhaps more effective. 4. History of coronary artery disease status post PTCA 5. History of atrial fibrillation 6. Thrombocytopenia. He is being evaluated for heparin-induced thrombocytopenia. So far assays have been negative Suggestion: 1. Dialysis will be held again today, will reassess in a.m. 2. Repeat biopsy of the skin with immunofluorescence will likely be performed today. 3. Closed renal biopsy may still need to be considered. 4. Going for pacemaker later today. 5. Other observers mention constipation is a problem. He is already on MiraLAX. Other possibilities here would be to add sorbitol or lactulose as needed for constipation. Subjective Subjective: Patient feels better overall but not as good as yesterday. Events of last evening noted. He was attributing this to lack of sleep. I think the block is a more reasonable explanation. Objective Vital Signs and I&Os Vital Signs Date Time Temp Pulse Resp B/P Pulse O2 O2 Flow FiO2 Ox Delivery Rate 09/08 0000 Nasal 2.0L Cannula 09/08 0000 97.1 77 22 162/84 95 Nasal 2.0L Cannula 09/07 2200 97.8 85 12 160/99 99 Nasal 2.0L Cannula 09/07 1959 97 Room Air Room Air 09/07 1600 96.7 82 16 160/90 92 Room Air 09/07 1237 96 Nasal 2.0L Cannula 09/07 1108 96 Room Air Intake & Output 09/08 1600 09/08 0400 09/07 1600 09/07 0400 09/06 1600 09/06 0400 Intake Total 482.4 280 700 346 784.6 533.2 Output Total 400 300 700 200 475 150 Balance 82.4 -20 0 146 309.6 383.2 Intake, IV 82.4 160 160 226 214.6 133.2 Intake, Oral 400 120 540 120 570 400 Number 0 1 0 0 Bowel Movements Output, Urine 400 300 700 200 475 150 Patient 224 lb Weight Current Medications: Current Medications Sig/Dagoberto Start time Last Medication Dose Route Stop Time Status Admin Acetaminophen 650 MG .STK-MED ONE 09/07 204 DC PO 09/07 204 Acetaminophen 650 MG Q6P PRN 08/23 2345 AC 09/07 PO 2045 Albuterol Sulfate 3 ML Q4P PRN 08/30 1645 AC 09/07 INH 2115 Ampicillin Sodium/ 3,000 MG Q12 09/04 1000 AC 09/08 Sulbactam Sodium IV 0951 Sodium Chloride 100 ML Argatroban 250 MG Q24H 09/05 2315 DC 09/07 Sodium Chloride 250 ML IV 0454 Atropine Sulfate 1 MG .STK-MED ONE 09/07 212 DC IM 09/07 212 Benzocaine/Menthol 1 SUKH Q4P PRN 08/31 1100 AC PO Benzonatate 100 MG TID PRN 08/25 1115 AC 08/30 PO 1652 Bisacodyl 10 MG ONCE ONE 09/08 0745 DC 09/08 ID 09/08 0746 0950 Bisacodyl 10 MG .STK-MED ONE 09/07 1658 DC ID 09/07 1659 Bisacodyl 5 MG DAILY 08/27 1358 AC 09/08 PO 0951 Cholecalciferol 1,000 IU DAILY 08/29 1046 AC 09/08 PO 0951 Folic Acid 1 MG DAILY 08/24 1000 AC 09/08 PO 0951 Furosemide 20 MG ONCE ONE 09/07 1430 DC 09/07 IV 09/07 1431 1442 Guaifenesin 10 ML .STK-MED ONE 09/07 1231 DC PO 09/07 1232 Guaifenesin 10 ML Q6P PRN 08/26 1530 AC 09/07 PO 1235 Lidocaine 20 ML .STK-MED ONE 09/07 1838 DC IA 09/07 1839 Melatonin 5 MG AT BEDTIME 09/08 2200 AC PO Metoprolol Succinate 100 MG DAILY 09/03 1000 DC 09/07 PO 0921 Morphine Sulfate 2 MG ONCE ONE 09/08 0745 DC IV 09/08 0746 Multivitamins 1 TAB DAILY 08/24 1000 AC 09/08 PO 0951 Nitroglycerin 0.4 MG ONCE ONE 09/07 2145 CAN SL 09/07 2146 Omeprazole 40 MG DAILY AC 08/29 1045 AC 09/08 PO 0640 Phenol 2 SPRAY Q2P PRN 08/30 0900 09/08 EXT 0952 Polyethylene Glycol 17 GM DAILY 08/27 1358 AC 09/08 PO 0950 Prednisone 60 MG DAILY 09/01 1000 AC 09/08 PO 0951 Thiamine HCl 100 MG DAILY 08/24 1000 AC 09/08 PO 0951 Results Pertinent Lab Results: Laboratory Tests 09/08 09/08 09/07 09/07 0610 0000 2140 1845 Chemistry Sodium (137 - 145 mmol/L) 138 Potassium (3.5 - 5.1 mmol/L) 4.9 Chloride (98 - 107 mmol/L) 104 Carbon Dioxide (22 - 30 mmol/L) 25 Anion Gap (5 - 16) 9 BUN (9 - 20 mg/dL) 98 H Creatinine (0.7 - 1.2 mg/dL) 3.5 H Estimated GFR (>60 ml/min) 17 L BUN/Creatinine Ratio (7 - 25 %) 28.0 H Phosphorus (2.5 - 4.5 mg/dL) 7.8 H Magnesium (1.6 - 2.3 mg/dL) 2.3 Troponin I (<0.11 ng/ml) 0.02 Coagulation APTT (25 - 37 SEC) 79 H 71 H 73 H Hematology CBC w Diff NO MAN DIFF REQ WBC (4.8 - 10.8 /CUMM) 25.1 H RBC (4.70 - 6.10 /CUMM) 3.71 L Hgb (14.0 - 18.0 G/DL) 10.8 L Hct (42 - 52 %) 32.6 L MCV (80.0 - 94.0 FL) 87.8 MCH (27.0 - 31.0 PG) 29.1 RDW (11.5 - 14.5 %) 15.3 H Plt Count (130 - 400 /CUMM) 151 MPV (7.4 - 10.4 FL) 8.5 Gran % (42.2 - 75.2 %) 86.2 H Lymphocytes % (20.5 - 51.1 %) 2.9 L Monocytes % (1.7 - 9.3 %) 10.2 H Eosinophils % (0 - 5 %) 0 Basophils % (0.0 - 2.0 %) 0.7 Absolute Granulocytes (1.4 - 6.5 /CUMM) 21.6 H Absolute Lymphocytes (1.2 - 3.4 /CUMM) 0.7 L Absolute Monocytes (0.10 - 0.60 /CUMM) 2.5 H Absolute Eosinophils (0.0 - 0.7 /CUMM) 0 Absolute Basophils (0.0 - 0.2 /CUMM) 0.2 PUBS MCHC (33.0 - 37.0 G/DL) 33.2 09/07 09/07 09/07 09/07 09/07 1700 1439 1248 1045 0850 Coagulation APTT (25 - 37 SEC) 76 H 75 H 72 H 76 H 72 H 09/07 09/07 09/07 0655 0600 0345 Chemistry Sodium (137 - 145 mmol/L) 136 L Potassium (3.5 - 5.1 mmol/L) 4.9 Chloride (98 - 107 mmol/L) 102 Carbon Dioxide (22 - 30 mmol/L) 24 Anion Gap (5 - 16) 11 BUN (9 - 20 mg/dL) 77 H Creatinine (0.7 - 1.2 mg/dL) 3.4 H Estimated GFR (>60 ml/min) 18 L Glucose (65 - 99 mg/dL) 171 H Calcium (8.4 - 10.2 mg/dL) 8.9 Phosphorus (2.5 - 4.5 mg/dL) 6.4 H Magnesium (1.6 - 2.3 mg/dL) 2.4 H Total Bilirubin (0.2 - 1.3 mg/dL) 1.3 AST (17 - 59 U/L) 24 ALT (21 - 72 U/L) 47 Albumin (3.5 - 5.0 g/dL) 2.0 L Coagulation PT (9.4 - 12.5 SEC) Cancelled 32.1 H INR (0.90 - 1.17) Cancelled 3.09 H APTT (25 - 37 SEC) 59 H 57 H Hematology CBC w Diff MAN DIFF ORDERED WBC (4.8 - 10.8 /CUMM) 30.3 *H RBC (4.70 - 6.10 /CUMM) 3.91 L Hgb (14.0 - 18.0 G/DL) 11.3 L Hct (42 - 52 %) 34.5 L MCV (80.0 - 94.0 FL) 88.3 MCH (27.0 - 31.0 PG) 29.0 RDW (11.5 - 14.5 %) 15.5 H Plt Count (130 - 400 /CUMM) 136 MPV (7.4 - 10.4 FL) 8.9 Gran % (42.2 - 75.2 %) 90.6 H Lymphocytes % (20.5 - 51.1 %) 1.9 L Monocytes % (1.7 - 9.3 %) 7.5 Eosinophils % (0 - 5 %) 0 Basophils % (0.0 - 2.0 %) 0 L Absolute Granulocytes (1.4 - 6.5 /CUMM) 27.4 H Segmented Neutrophils (42.2 - 75.2 %) 87 H Band Neutrophils (0.0 - 5.0 %) 2 Absolute Lymphocytes (1.2 - 3.4 /CUMM) 0.6 L Lymphocytes (20.5 - 51.1 %) 4 L Monocytes (1.7 - 9.3 %) 7 Absolute Monocytes (0.10 - 0.60 /CUMM) 2.3 H Absolute Eosinophils (0.0 - 0.7 /CUMM) 0 Absolute Basophils (0.0 - 0.2 /CUMM) 0 Platelet Estimate (ADEQUATE) ADEQUATE Hypochromic-Microcytic 1+ PUBS MCHC (33.0 - 37.0 G/DL) 32.8 L Other Body Source Fld Total RBCs Counted (%) 100 09/07 183 1630 Chemistry Sodium (137 - 145 mmol/L) 137 Potassium (3.5 - 5.1 mmol/L) 5.0 Chloride (98 - 107 mmol/L) 100 Carbon Dioxide (22 - 30 mmol/L) 26 Anion Gap (5 - 16) 11 BUN (9 - 20 mg/dL) 70 H Creatinine (0.7 - 1.2 mg/dL) 3.3 H Estimated GFR (>60 ml/min) 19 L Glucose (65 - 99 mg/dL) 185 H Calcium (8.4 - 10.2 mg/dL) 8.4 Phosphorus (2.5 - 4.5 mg/dL) 6.0 H Magnesium (1.6 - 2.3 mg/dL) 2.3 Total Bilirubin (0.2 - 1.3 mg/dL) 1.3 AST (17 - 59 U/L) 32 ALT (21 - 72 U/L) 44 Albumin (3.5 - 5.0 g/dL) 2.1 L Coagulation APTT (25 - 37 SEC) 61 H 51 H 64 H 56 H Hematology CBC w Diff NO MAN DIFF REQ WBC (4.8 - 10.8 /CUMM) 30.0 H RBC (4.70 - 6.10 /CUMM) 4.08 L Hgb (14.0 - 18.0 G/DL) 11.8 L Hct (42 - 52 %) 36.1 L MCV (80.0 - 94.0 FL) 88.5 MCH (27.0 - 31.0 PG) 29.0 RDW (11.5 - 14.5 %) 15.4 H Plt Count (130 - 400 /CUMM) 134 MPV (7.4 - 10.4 FL) 8.8 Gran % (42.2 - 75.2 %) 95.2 H Lymphocytes % (20.5 - 51.1 %) 1.7 L Monocytes % (1.7 - 9.3 %) 3.1 Eosinophils % (0 - 5 %) 0 Basophils % (0.0 - 2.0 %) 0 L Absolute Granulocytes (1.4 - 6.5 /CUMM) 28.6 H Absolute Lymphocytes (1.2 - 3.4 /CUMM) 0.5 L Absolute Monocytes (0.10 - 0.60 /CUMM) 0.9 H Absolute Eosinophils (0.0 - 0.7 /CUMM) 0 Absolute Basophils (0.0 - 0.2 /CUMM) 0 PUBS MCHC (33.0 - 37.0 G/DL) 32.7 L 09/06 09/06 09/06 09/06 09/06 1430 1230 1015 0840 0625 Coagulation APTT (25 - 37 SEC) 56 H 51 H 52 H 57 H 49 H 09/06 09/06 09/06 0600 0300 0300 Chemistry Sodium (137 - 145 mmol/L) 137 Potassium (3.5 - 5.1 mmol/L) 3.9 Chloride (98 - 107 mmol/L) 100 Carbon Dioxide (22 - 30 mmol/L) 28 Anion Gap (5 - 16) 8 BUN (9 - 20 mg/dL) 53 H Creatinine (0.7 - 1.2 mg/dL) 2.8 H Estimated GFR (>60 ml/min) 22 L BUN/Creatinine Ratio (7 - 25 %) 18.9 Magnesium (1.6 - 2.3 mg/dL) 2.2 Total Bilirubin (0.2 - 1.3 mg/dL) 1.4 H Direct Bilirubin (< 0.4 mg/dL) 0.8 H AST (17 - 59 U/L) 22 ALT (21 - 72 U/L) 36 Alkaline Phosphatase (< 127 U/L) 107 Total Protein (6.3 - 8.2 g/dL) 4.8 L Albumin (3.5 - 5.0 g/dL) 2.0 L Coagulation PT (9.4 - 12.5 SEC) Cancelled 28.8 H INR (0.90 - 1.17) Cancelled 2.77 H APTT (25 - 37 SEC) 47 H Cancelled Hematology CBC w Diff MAN DIFF ORDERED WBC (4.8 - 10.8 /CUMM) 41.4 *H RBC (4.70 - 6.10 /CUMM) 3.96 L Hgb (14.0 - 18.0 G/DL) 11.5 L Hct (42 - 52 %) 35.3 L MCV (80.0 - 94.0 FL) 89.2 MCH (27.0 - 31.0 PG) 29.0 RDW (11.5 - 14.5 %) 15.3 H Plt Count (130 - 400 /CUMM) 114 L MPV (7.4 - 10.4 FL) 9.1 Gran % (42.2 - 75.2 %) 92.5 H Lymphocytes % (20.5 - 51.1 %) 1.4 L Monocytes % (1.7 - 9.3 %) 6.1 Eosinophils % (0 - 5 %) 0 Basophils % (0.0 - 2.0 %) 0 L Absolute Granulocytes (1.4 - 6.5 /CUMM) 38.3 H Segmented Neutrophils (42.2 - 75.2 %) 92 H Absolute Lymphocytes (1.2 - 3.4 /CUMM) 0.6 L Lymphocytes (20.5 - 51.1 %) 1 L Monocytes (1.7 - 9.3 %) 7 Absolute Monocytes (0.10 - 0.60 /CUMM) 2.5 H Absolute Eosinophils (0.0 - 0.7 /CUMM) 0 Absolute Basophils (0.0 - 0.2 /CUMM) 0 Nucleated RBCs (0.0 - 0.0 /100WBC) 1 H Platelet Estimate (ADEQUATE) ADEQUATE Polychromasia 1+ Hypochromic-Microcytic 1+ Poikilocytosis 3+ Ovalocytes 1+ Myron Cells 2+ Elliptocytes FEW PUBS MCHC (33.0 - 37.0 G/DL) 32.5 L Other Body Source Fld Total RBCs Counted (%) 100 09/06 09/05 09/05 0030 2043 1700 Chemistry Sodium (137 - 145 mmol/L) 135 L 133 L Potassium (3.5 - 5.1 mmol/L) 3.7 4.3 Chloride (98 - 107 mmol/L) 98 97 L Carbon Dioxide (22 - 30 mmol/L) 27 23 Anion Gap (5 - 16) 10 13 BUN (9 - 20 mg/dL) 32 H 97 H Creatinine (0.7 - 1.2 mg/dL) 1.7 H 4.4 H Estimated GFR (>60 ml/min) 40 L 13 L BUN/Creatinine Ratio (7 - 25 %) 18.8 22.0 Phosphorus (2.5 - 4.5 mg/dL) 7.4 H Coagulation APTT (25 - 37 SEC) 53 H 48 H 82 H Hematology CBC w Diff MAN DIFF ORDERED WBC (4.8 - 10.8 /CUMM) 29.4 H RBC (4.70 - 6.10 /CUMM) 3.77 L Hgb (14.0 - 18.0 G/DL) 11.0 L Hct (42 - 52 %) 33.4 L MCV (80.0 - 94.0 FL) 88.6 MCH (27.0 - 31.0 PG) 29.3 RDW (11.5 - 14.5 %) 15.5 H Plt Count (130 - 400 /CUMM) 100 L MPV (7.4 - 10.4 FL) 10.0 Gran % (42.2 - 75.2 %) 96.0 H Lymphocytes % (20.5 - 51.1 %) 1.0 L Monocytes % (1.7 - 9.3 %) 3.0 Eosinophils % (0 - 5 %) 0 Basophils % (0.0 - 2.0 %) 0 L Absolute Granulocytes (1.4 - 6.5 /CUMM) 28.2 H Segmented Neutrophils (42.2 - 75.2 %) 97 H Absolute Lymphocytes (1.2 - 3.4 /CUMM) 0.3 L Lymphocytes (20.5 - 51.1 %) 1 L Monocytes (1.7 - 9.3 %) 2 Absolute Monocytes (0.10 - 0.60 /CUMM) 0.9 H Absolute Eosinophils (0.0 - 0.7 /CUMM) 0 Absolute Basophils (0.0 - 0.2 /CUMM) 0 Platelet Estimate (ADEQUATE) VERIFIED BY SMEAR Poikilocytosis FEW Myron Cells FEW PUBS MCHC (33.0 - 37.0 G/DL) 33.0 Other Body Source Fld Total RBCs Counted (%) 100 09/05 09/05 1155 1100 Coagulation PT (9.4 - 12.5 SEC) 48.8 *H INR (0.90 - 1.17) 4.72 *H APTT (25 - 37 SEC) 91 H Cancelled Immunology Heparin-induced Plt Ab (NEGATIVE) NEGATIVE Heparin-PF4 AB OD (<OR= 0.300 OD UNITS) 0.013 Miscellaneous Ref Lab Test Result Pending
--- NOTE | 2016-09-08 12:35 | ECHOCARDIOGRAM REPORT ---
AMELIA VALVERDE Age: 71 : 1945 Gender: M Exam Date: 09/08/2016 10:07 Exam Location: [facility] Ht (in): 71 Wt (lb): 224 BSA: 2.28 BP: 162 / 84 Ordering Physician: KARYN GALDAMEZ MD Referring Physician: KARYN GALDAMEZ MD Technologist: Monico Ross [facility] Room Number: [id number] Indications: Arrhythmia Rhythm: Atrial fibrillation Technical Quality: poor FINDINGS Left Ventricle Left ventricular cavity size at the upper limits of normal. Moderately abnormal left ventricular ejection fraction estimated at 20-25%. Akinetic inferior wall. Right Ventricle Normal right ventricular size and function. Right Atrium Normal right atrial size. Left Atrium Mild left atrial dilatation. Mitral Valve Mild mitral annular calcification. [id number] mitral regurgitation. Aortic Valve Diffuse thickening (sclerosis) of the aortic valve cusps without reduced excursion. Mild aortic regurgitation. Tricuspid Valve Tricuspid valve is normal in structure and function. Mild tricuspid regurgitation. Right ventricular systolic pressure estimated to be elevated at 42 mmHg. Pulmonic Valve Pulmonic valve not well visualized, grossly normal. Pericardium No pericardial effusion. Great Vessels Normal size aortic root. CONCLUSIONS Severely reduced left ventricular systolic function with akinesia of the inferior wall. Mild Aortic regurgitation and mild to moderate Mitral regurgitation with mild pulmonary hypertension. Gaudencio Amezcua M.D. (Electronically Signed) Final Date: 08 September 2016 12:35 MEASUREMENTS (Male / Female) Normal Values 2D ECHO LV Diastolic Diameter PLAX 5.2 cm 4.2 - 5.9 / 3.9 - 5.3 cm LV Systolic Diameter PLAX 4.7 cm 2.1 - 4.0 cm LV Fractional Shortening PLAX 9.6 % 25 - 46 % LV Ejection Fraction 2D Teich 21.0 % IVS Diastolic Thickness 1.2 cm LVPW Diastolic Thickness 1.1 cm LV Relative Wall Thickness 0.4 RV Internal Dim ED PLAX 4.1 cm 1.9 - 3.8 cm LVOT Diameter 2.3 cm Aortic Root Diameter 3.3 cm LA Systolic Diameter LX 4.8 cm 3.0 - 4.0 / 2.7 - 3.8 cm LA Volume 129.0 cm 18 - 58 / 22 - 52 cm Ascending Aorta Diameter 3.4 cm DOPPLER AV Peak Velocity 156.0 cm/s AV Peak Gradient 9.7 mmHg AV Mean Velocity 101.0 cm/s AV Mean Gradient 5.0 mmHg AV Velocity Time Integral 30.3 cm LVOT Peak Velocity 69.2 cm/s LVOT Peak Gradient 1.9 mmHg LVOT Mean Velocity 45.4 cm/s LVOT Mean Gradient 1.0 mmHg LVOT Velocity Time Integral 13.7 cm LVOT Stroke Volume 56.9 cm AV Area Cont Eq vti 1.9 cm AV Area Cont Eq pk 1.8 cm MV Peak Velocity 106.0 cm/s MV Peak Gradient 4.5 mmHg MV Mean Velocity 65.4 cm/s MV Mean Gradient 2.0 mmHg Mitral E Point Velocity 115.0 cm/s MV PHT Velocity 116.0 cm/s MV Deceleration Marathon 361.0 cm/s MV Pressure Half Time 96.4 ms MV Area PHT 2.3 cm MV Deceleration Time 158.0 ms MR Peak Velocity 555.0 cm/s MR Peak Gradient 123.2 mmHg TR Peak Velocity 297.0 cm/s TR Peak Gradient 35.3 mmHg Right Atrial Pressure 5.0 mmHg Pulmonary Artery Systolic Pressu 40.3 mmHg Right Ventricular Systolic Press 40.3 mmHg PV Peak Velocity 96.5 cm/s PV Peak Gradient 3.7 mmHg PV Mean Velocity 54.9 cm/s PV Mean Gradient 1.0 mmHg PV Velocity Time Integral 15.4 cm LV E' Lateral Velocity 9.8 cm/s Mitral E to LV E' Lateral Ratio 11.7 LV E' Septal Velocity 7.6 cm/s Mitral E to LV E' Septal Ratio 15.1
[2016-09-08 16:00] VITALS: BP 140/90
--- NOTE | 2016-09-08 17:51 | Procedure ---
Minor Surgical Procedure Note Date of Procedure: 09/08/16 Procedure Note: This was a bedside procedure Preoperative diagnosis skin rash acute renal failure Postoperative diagnosis is the same Procedure is full-thickness skin biopsy Attending: Irene Anesthesia local - 1 mL 1% lidocaine Patient was in his hospital bed and area of the rash was prepped and draped in the usual sterile fashion this was the lateral tibial region on the right, a punch biopsy device was used and twirled through the full-thickness of the skin this was then excised that included some subcutaneous fat to resulting defect did lose and we oversewed it with 5-0 fast absorbing gut for hemostasis this was covered with some bacitracin gauze and tape. EBL minimal Lap and sponge cuts correct Wound expectancy was clean IV fluids crystalloid complications none Patient tied the procedure well as specimen was placed in the buffered solution for immunofluorescence and sent to pathology.
--- NOTE | 2016-09-08 19:32 | Event Note ---
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 I assess and examined the patient. Despite having significant pause and x3 VT, kaylah remained asymptomatic. He denies any CP, SOB, palpitation, lighthdeadnessm however mentiones slight chest heaviness. VS: Phy/Ex: AO x3; CV: afib, S1 S2, Lungs : clear List of DDX: medication side effect, R/O ACS plan 1) 12 lead ECG 2) matter was discussed w/ attending diaper folder from Dr. Amezcua's group : for now D/C Toporol XL, and use atropin (0.5 mg IV push q 3-5 min ) as needed for severe, symptomatic bradycardia 3) DNR/DNI
[2016-09-08 23:00] VITALS: BP 149/86
[2016-09-09 04:56] LABS: ABSOLUTE BASOPHIL COUNT 0 /CUMM (0.0-0.2); ABSOLUTE EOSINOPHIL COUNT 0 /CUMM (0.0-0.7); ABSOLUTE GRANULOCYTE CT 22.4 /CUMM (1.4-6.5); ABSOLUTE LYMPH COUNT 0.6 /CUMM (1.2-3.4); ABSOLUTE MONOCYTE COUNT 1.1 /CUMM (0.10-0.60); BASOPHIL % 0 % (0.0-2.0); EOSINOPHIL % 0 % (0-5); GRANULOCYTE % 92.9 % (42.2-75.2); HEMATOCRIT 35.3 % (42-52); MEAN CORPUSCULAR HGB 28.9 PG (27.0-31.0); MEAN CORPUSCULAR HGB CONC 32.7 G/DL (33.0-37.0); MEAN CORPUSCULAR VOLUME 88.4 FL (80.0-94.0); MEAN PLATELET VOLUME 8.8 FL (7.4-10.4); PLATELET COUNT 140 /CUMM (130-400); RBC DISTRIBUTION WIDTH 15.1 % (11.5-14.5); RED BLOOD CELL CT 3.99 /CUMM (4.70-6.10); WHITE BLOOD CELL COUNT 24.1 /CUMM (4.8-10.8)
--- NOTE | 2016-09-09 06:57 | PN- Housestaff ---
RUDOLPH BAKER,KARYN 09/09/16 0656: Subjective Follow-up For: asystole bradycardia HSP Tele-Events Since Last Visit: Afib 80-90s Subjective: Pt seen this morning,reports that he almost passed out around 4-5 am, but I could not appreciate any significant events on telemetry monitoring. Backup pacer has been set up while awaiting pacemaker placement today. He feels relieved after having a satisfactory bowel movement yesterday, but would like another suppository as he is feeling slightly "built up" again. Ordered suppository for 5pm tonight so he can get it after he comes back from pacemaker. He has not been ambulating, and feeling weak, ordered PT for tomorrow. He still complains of itchy legs, right more severe than left, and agreed to try some cream to help with the itching. Will try pramoxine. He also complains of cough, and mucus building up, worse in the past 12 hours, and would like to have some flonase. He continues to have 2+ edema, will give another dose of lasix today. Review of Systems Constitutional: Reports: see HPI. Objective Last 24 Hrs of Vital Signs/I&O Vital Signs Date Time Temp Pulse Resp B/P Pulse O2 O2 Flow FiO2 Ox Delivery Rate 09/09 0832 98 Nasal 2.0L Cannula 09/09 0800 Nasal 2.0L Cannula 09/09 0800 97.5 88 20 162/80 98 Nasal 2.0L Cannula 09/09 0700 98.5 91 15 142/85 99 Nasal 2.0L Cannula 09/09 0000 99 Nasal 2.0L Cannula 09/08 2300 98.7 82 10 149/86 99 Nasal 2.0L Cannula 09/08 1703 99 Nasal 2.0L Cannula 09/08 1600 98 Nasal 2.0L Cannula 09/08 1600 97.8 84 18 140/90 98 Nasal 2.0L Cannula Intake & Output 09/09 1600 09/09 0800 09/09 0000 Intake Total 550 Output Total 400 1180 1040 Balance -400 -1180 -490 Intake, IV 100 Intake, Oral 450 Output, Urine 400 1180 1040 Patient 106.594 kg Weight Physical Exam General Appearance: Alert, Oriented X3, Cooperative, No Acute Distress Skin: purpuric lesions on both lower extremities dry skin HEENT: Atraumatic Cardiovascular: irregular rate Lungs: Clear to Auscultation, Normal Air Movement Abdomen: Normal Bowel Sounds, Soft, No Tenderness Neurological: Normal Speech Extremities: 2+pitting edema Current Medications: Current Medications Sig/Dagoberto Start time Last Medication Dose Route Stop Time Status Admin Acetaminophen 650 MG Q6P PRN 08/23 2345 AC 09/07 PO 2045 Albuterol Sulfate 3 ML Q4P PRN 08/30 1645 AC 09/07 INH 2115 Ampicillin Sodium/ 3,000 MG Q12 09/04 1000 AC 09/09 Sulbactam Sodium IV 1026 Sodium Chloride 100 ML Benzocaine/Menthol 1 SUKH Q4P PRN 08/31 1100 AC PO Benzonatate 100 MG TID PRN 08/25 1115 AC 08/30 PO 1652 Bisacodyl 10 MG ONCE ONE 09/09 1700 UNVr NE 09/09 1701 Bisacodyl 5 MG DAILY 08/27 1358 AC 09/08 PO 0951 Cholecalciferol 1,000 IU DAILY 08/29 1046 AC 09/08 PO 0951 Fluticasone 2 SPRAY DAILY 09/09 1045 AC Propionate KATHARINE Folic Acid 1 MG DAILY 08/24 1000 AC 09/08 PO 0951 Furosemide 40 MG ONCE ONE 09/09 1145 UNVr IV 09/09 1146 Guaifenesin 10 ML Q6P PRN 08/26 1530 AC 09/09 PO 0903 Melatonin 5 MG AT BEDTIME 09/08 2200 AC 09/08 PO 2204 Multivitamins 1 TAB DAILY 08/24 1000 AC 09/08 PO 0951 Omeprazole 40 MG DAILY AC 08/29 1045 AC 09/09 PO 0630 Phenol 2 SPRAY Q2P PRN 08/30 0900 AC 09/09 EXT 0903 Polyethylene Glycol 17 GM DAILY 08/27 1358 AC 09/08 PO 0950 Pramoxine HCl 1 BOT TIDPRN PRN 09/09 1045 AC EXT Prednisone 60 MG DAILY 09/01 1000 AC 09/08 PO 0951 Sodium Polystyrene 60 ML ONCE ONE 09/09 0745 DC 09/09 Sulfonate PO 09/09 0746 0902 Thiamine HCl 100 MG DAILY 08/24 1000 AC 09/08 PO 0951 Last 24 Hrs of Lab/Hemal Results Last 24 Hrs of Labs/Mics: Laboratory Tests 09/09/16 1115: PT Pending, INR Pending 09/09/16 0358: Anion Gap 11, Estimated GFR 17 L, BUN/Creatinine Ratio 28.9 H, Phosphorus 7.8 H, Magnesium 2.2, CBC w Diff NO MAN DIFF REQ, RBC 3.99 L, MCV 88.4, MCH 28.9, RDW 15.1 H, MPV 8.8, Gran % 92.9 H, Lymphocytes % 2.4 L, Monocytes % 4.7, Eosinophils % 0, Basophils % 0 L, Absolute Granulocytes 22.4 H, Absolute Lymphocytes 0.6 L, Absolute Monocytes 1.1 H, Absolute Eosinophils 0, Absolute Basophils 0, PUBS MCHC 32.7 L Assessment/Plan Assessment: 71-year-old man with PMH of atrial fibrillation on Coumadin, CAD status post stents, with varicose veins, hospitalized 3 weeks [employer] [employer] after trauma to the right leg requiring 2 units of blood, with persistent swelling, discomfort and discoloration of the right leg since then, self treated persistent leg swelling with Lasix several days prior to admission, admitted on August 23 after presenting to the ED with a diffuse petechial rash that was more localized one week [employer], with no associated fevers or chills. Pt was initially admitted to general medicine. He was transferred to telemetry from general medicine for close cardiac monitoring while aspirin and warfarin were held pending renal biopsy. Skin biopsy on 08/26/[address] 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 He also developed REAGAN ( with BUN/cr up to 124/7.4 , was 27/1.7 on admission) and hyperkalemia (up to 6.3 ). 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 His K and kidney functions has improved with dialysis. After steroids was started, developed leukocytosis with WBC up to 43.3 (normal wbc on admission), afebrile (although on steroids) with no left shift, and did not improve with unasyn for presumable RLE cellulitis. Leukocytosis improving. Renal biopsy was delayed initially due to supratherapeutic INR (pt on warfarin for afib) for which renal did not feel comfortable reversing with FFP. So heparin drip started while warfarin held. There was then a concern that he might have developed heparin induced thrombocytopenia (highest 186, lowest 72), with a high probability pre-test likelihood based on 4T score, so heparin drip was subsequently stopped, and argatroban drip started. Subsequently, heparin induced platelet ab, heparin-pf4 ab od 0.013, and serotonin release assay were found to be negative, ruling out HIT, with platelet trending up nicely to normal range. Pt was transferred to ICU for close nursing monitoring while on argatroban drip. Of note, pt had episode of NSVT on telemetry, for which his metoprolol dose was increased to 100 without subsequent recurrence. However, on 09/07/16 evening, he had 4 episodes of prolonged asystole (up to 2 minutes each time) in a 30 minute timeframe, he is DNR/DNI. No chest compressions done, but he regained consciousness with sternal rubs. EKG showed advanced AV block with HR in the low 30s, and a new RBBB. Metoprolol subsequently held pending pacemaker placement. He was maintained on backup pacemaker while awaiting permanent pacemaker placement. Argatroban was held in anticipation for surgery, and he is to be restarted on heparin drip after the surgery now that HIT has been ruled out. Skin biopsy with immunofluorescence was done on 09/08/16. Renal biopsy is still being considered. Active issues include: # Hx of asystole, advanced av block, new RBBB, pacemaker to be placed # Constipation # Possible Henoch-Schnlein purpura on prednisone and dialysis # HIT ruled out # Leukocytosis, on steroids , with RLE pain, possible cellulitis, on Unasyn # Atrial fibrillation (was on warfarin at home, currently being held) # Episode of NSVT with no reccurent epidose after increasing metoprolol # Hx of CAD (aspirin on hold pending biopsy, await starting statin) # Hx of asystole, advanced av block, new RBBB - Stat echo 09/08/16: Severely reduced left ventricular systolic function with akinesia of the inferior wall. Mild Aortic regurgitation and mild to moderate Mitral regurgitation with mild pulmonary hypertension. EF 20-25% * Plan for pacemaker placement with Dr. Coombs 09/09, backup pacer interim * Argatroban on hold. IV heparin to be started after surgery (most likely wait at least 24 hours). * NPO pending surgery. Renal dialysis diet after surgery. * Metoprolol on hold pending pacemaker placement # Henoch-Schnlein purpura - Diffuse petechial rash, first noted one week prior to admission, and persistent ecchymosis, edema and mild discomfort of the right leg - Subsequently developed REAGAN and hyperkalemia with microscopic hematuria, with improvement of creatinine due to dialysis - Cough with hemoptysis (not likely to be pulmonary renal based on chest ct) - Elevated ESR 36, CRP >15, RF 13.9 - Negative hepatitis panel, HIV, MARTIN, ANCA, cryoglobulin. Normal C3 and C4. * Pending renal biopsy by IR pending nephrology decision. * Repeat skin biopsy completed on 09/09. Await formal results * Nephrology on board * Dialysis started * Hematology on board (Dr. High) * on 60mg PO prednisone daily * 20mg IV lasix given on 09/07 for edema. 40mg IV lasix X 1 given on 09/08 and . * Pramoxine for itching * PT # HIT ruled out - Platelet down from highest 186 --> lowest 72, now trending up - Received heparin from 09/01/16 to 09/04/16 - 4T high probability for HIT - Heparin induced platelet ab negative and heparin-pf4 ab od 0.013 (negative). - Serotonin release assay negative * Monitor CBC daily # Constipation - Given bowel regimen and suppository * Order more suppository as needed # Hemoptysis with cough - Due to warfarin use? - Sputum with streak of blood * Pulm consult appreciated, Dr. Jensen has signed off * Flonase * Robitussin # Atrial fibrillation ( on coumadin at home) - CHADVASc score is 4 putting him at mod-high risk for stroke, on ArgatrobanCoumadin on hold due to possible renal biopsy * Heparin drip discontinued due to possible HIT * Argatroban drip on hold for pacemaker implantation. To be on heparin drip after # Hx of CAD/prior myocardial infarction with mild to moderate left ventricular dysfunction by previous noninvasive imaging, now with severe LV dysfunction - Despite the cardiomyopathy he is not a candidate for addition of LISETH-I at this time * Restart aspirin 81 mg when medically cleared * Cardio recommend adding low-dose Lipitor 20 mg by mouth daily when medically cleared # One episode of NSVT on telemetry, chronic LBBB (resolved) * Increased metoprolol to Toprol XL 100 mg daily, now on hold # Hx of HTN * Toprol on hold # Leukocytosis up to 43.3, on steroids # Possible Cellulitis of right thigh secondary to lower extremity ulceration - X-ray of the right tibia/fibula negative. - Doppler of the right lower extremity negative * ID input appreciated * Unasyn 3000 q12 started on 09/04/16 pm. WBC continues to be elevated despite being on abx. Now day #6 of abx. Discontinue unasyn after pacemaker placement. * Wound consult appreciated * Monitor WBC * Xeroform and leg elevation above his heart Diet: NPO pending surgery DVT ppx: argatroban onhold for surgery, to be restarted on heparin drip DNR/DNI In the event of any changes or updates please contact his son Paulo at or [id number] Sandra who is a hospice nurse at [phone] Consults: cardio, nephro, ID, thoracic surgery (Dr. Coombs pacemaker), gen surgery (Dr. Bonilla, skin biopsy), pulm (signed off), rheum , PT, nutrition Labs: CBC, BEP, mag, phos for low platelet count, arrythmia, reagan on dialysis Problem List: 1. AV block 2. Henoch-Schonlein purpura Pain Ratin Pain Location: RLE Pain Goal: Pain 4 or less Pain Plan: mild pp Tomorrow's Labs & Rationales: bep mg phos for arrythmia cbc for low platelet Consulting Request: Consulting Specialty: Hematology/Oncology MANOLO AMES MD 09/09/16 1447: Attending MD Review Statement Attending Statement Attending MD Statement: examined this patient, discuss w/resident/PA/STOPPER GRINDER, agreed w/resident/PA/STOPPER GRINDER, reviewed EMR data (avail), discussed with nursing, discussed with case mgmt, reviewed images Attending Assessment/Plan: Patient is doing okay today. He had no more periods of asystole. He scheduled for pacemaker today. Of note his serum troponin release assay is negative. So his SHOSHANA workup has been negative and we can safely restart the heparin when it' s okay to do so per Dr. Coombs after the pacemaker. He's will not to be dialyzed as he is putting out a good amount of urine. We have to monitor his potassium and closely regulate his potassium in his diet. We can use Lasix when necessary as necessary if he appears volume overloaded. We'll keep him on the heparin once it safe to restart it until we get the results of the skin biopsy. If it gives us the answer from pathology standpoint then we can transition him to by mouth Coumadin. If it doesn't he will need a kidney biopsy.
[2016-09-09 07:00] VITALS: BP 142/85
[2016-09-09 08:00] VITALS: BP 162/80
--- NOTE | 2016-09-09 10:59 | PN- Nephrology ---
Assessment/Plan Assessment: 1. Acute kidney injury. 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 His serum creatinine is stable at creatinine of 3.5. His urine output is excellent. He had 2665 mL of urine out yesterday. Even with potassium of 5.5 I would not consider dialysis today. 2. Status post episodes of AV block. He is to receive the pacemaker today. 3. Volume status. Would favor another dose of furosemide 4. History of coronary artery disease status post PTCA 5. History of atrial fibrillation 6. Thrombocytopenia. Resolved. Heparin-induced antibody studies were negative. He is to resume heparin. Suggestion: 1. Dialysis will be held again today, will reassess in a.m. 2. Repeat biopsy of the skin with immunofluorescence I am told was negative. Will likely need to reconsider a closed renal biopsy. Although with his serum creatinine being better, he can be argued not to proceed with a biopsy. The negative skin immunofluorescence would argue for a biopsy. 3. pacemaker later today. Subjective Subjective: Patient still feels poorly. He is going for pacemaker today. Denies nausea and vomiting. Objective Vital Signs and I&Os Vital Signs Date Time Temp Pulse Resp B/P Pulse O2 O2 Flow FiO2 Ox Delivery Rate 09/09 0832 98 Nasal 2.0L Cannula 09/09 0800 Nasal 2.0L Cannula 09/09 0800 97.5 88 20 162/80 98 Nasal 2.0L Cannula 09/09 0700 98.5 91 15 142/85 99 Nasal 2.0L Cannula 09/09 0000 99 Nasal 2.0L Cannula 09/08 2300 98.7 82 10 149/86 99 Nasal 2.0L Cannula 09/08 1703 99 Nasal 2.0L Cannula 09/08 1600 98 Nasal 2.0L Cannula 09/08 1600 97.8 84 18 140/90 98 Nasal 2.0L Cannula Intake & Output 09/09 1600 09/09 0400 09/08 1600 09/08 0400 09/07 1600 09/07 0400 Intake Total 550 1307.4 280 700 346 Output Total 1580 1040 1625 300 700 200 Balance -1580 -490 -317.6 -20 0 146 Intake, IV 100 82.4 160 160 226 Intake, Oral 450 1225 120 540 120 Number 1 1 Bowel Movements Output, Urine 1580 1040 1625 300 700 200 Patient 235 lb 224 lb 224 lb Weight Physical Exam: General Appearance: well developed/nourished, no apparent distress, comfortable, obese Head: atraumatic, normal appearance Ears, Nose, Throat: hearing grossly normal, missing a few teeth Neck: normal inspection, supple, trachea mid line Respiratory: normal breath sounds, chest non-tender Cardiovascular: regular rate/rhythm Abdomen: normal bowel sounds, soft, non-tender, no organomegaly, no abdominal bruits Extremities: He has pitting edema sacrum and the thighs,chronic venous stasis changes right greater than left. Both feet cool to the touch Neurologic/Psychiatric: no motor/sensory deficits, awake, alert, oriented x 3 Skin: chronic venous stasis changes coupled with a rash Current Medications: Current Medications Sig/Dagoberto Start time Last Medication Dose Route Stop Time Status Admin Acetaminophen 650 MG Q6P PRN 08/23 2345 AC 09/07 PO 2045 Albuterol Sulfate 3 ML Q4P PRN 08/30 1645 AC 09/07 INH 2115 Ampicillin Sodium/ 3,000 MG Q12 09/04 1000 AC 09/09 Sulbactam Sodium IV 1026 Sodium Chloride 100 ML Benzocaine/Menthol 1 SUKH Q4P PRN 08/31 1100 AC PO Benzonatate 100 MG TID PRN 08/25 1115 AC 08/30 PO 1652 Bisacodyl 5 MG DAILY 08/27 1358 AC 09/08 PO 0951 Cholecalciferol 1,000 IU DAILY 08/29 1046 AC 09/08 PO 0951 Fluticasone 2 SPRAY DAILY 09/09 1045 AC Propionate KATHARINE Folic Acid 1 MG DAILY 08/24 1000 AC 09/08 PO 0951 Furosemide 40 MG ONCE ONE 09/08 1130 DC 09/08 IV 09/08 1131 1216 Guaifenesin 10 ML Q6P PRN 08/26 1530 AC 09/09 PO 0903 Melatonin 5 MG AT BEDTIME 09/08 2200 AC 09/08 PO 2204 Multivitamins 1 TAB DAILY 08/24 1000 AC 09/08 PO 0951 Omeprazole 40 MG DAILY AC 08/29 1045 AC 09/09 PO 0630 Phenol 2 SPRAY Q2P PRN 08/30 0900 AC 09/09 EXT 0903 Polyethylene Glycol 17 GM DAILY 08/27 1358 AC 09/08 PO 0950 Pramoxine HCl 1 BOT TIDPRN PRN 09/09 1045 UNir EXT Prednisone 60 MG DAILY 09/01 1000 AC 09/08 PO 0951 Sodium Polystyrene 60 ML ONCE ONE 09/09 0745 DC 09/09 Sulfonate PO 09/09 0746 0902 Thiamine HCl 100 MG DAILY 08/24 1000 AC 09/08 PO 0951 Results Pertinent Lab Results: Laboratory Tests 09/09 09/08 0358 0610 Chemistry Sodium (137 - 145 mmol/L) 139 138 Potassium (3.5 - 5.1 mmol/L) 5.5 H 4.9 Chloride (98 - 107 mmol/L) 104 104 Carbon Dioxide (22 - 30 mmol/L) 24 25 Anion Gap (5 - 16) 11 9 BUN (9 - 20 mg/dL) 102 *H 98 H Creatinine (0.7 - 1.2 mg/dL) 3.5 H 3.5 H Estimated GFR (>60 ml/min) 17 L 17 L BUN/Creatinine Ratio (7 - 25 %) 28.9 H 28.0 H Phosphorus (2.5 - 4.5 mg/dL) 7.8 H 7.8 H Magnesium (1.6 - 2.3 mg/dL) 2.2 2.3 Coagulation APTT (25 - 37 SEC) 79 H Hematology CBC w Diff NO MAN DIFF REQ NO MAN DIFF REQ WBC (4.8 - 10.8 /CUMM) 24.1 H 25.1 H RBC (4.70 - 6.10 /CUMM) 3.99 L 3.71 L Hgb (14.0 - 18.0 G/DL) 11.5 L 10.8 L Hct (42 - 52 %) 35.3 L 32.6 L MCV (80.0 - 94.0 FL) 88.4 87.8 MCH (27.0 - 31.0 PG) 28.9 29.1 RDW (11.5 - 14.5 %) 15.1 H 15.3 H Plt Count (130 - 400 /CUMM) 140 151 MPV (7.4 - 10.4 FL) 8.8 8.5 Gran % (42.2 - 75.2 %) 92.9 H 86.2 H Lymphocytes % (20.5 - 51.1 %) 2.4 L 2.9 L Monocytes % (1.7 - 9.3 %) 4.7 10.2 H Eosinophils % (0 - 5 %) 0 0 Basophils % (0.0 - 2.0 %) 0 L 0.7 Absolute Granulocytes (1.4 - 6.5 /CUMM) 22.4 H 21.6 H Absolute Lymphocytes (1.2 - 3.4 /CUMM) 0.6 L 0.7 L Absolute Monocytes (0.10 - 0.60 /CUMM) 1.1 H 2.5 H Absolute Eosinophils (0.0 - 0.7 /CUMM) 0 0 Absolute Basophils (0.0 - 0.2 /CUMM) 0 0.2 PUBS MCHC (33.0 - 37.0 G/DL) 32.7 L 33.2 09/08 09/07 09/07 09/07 09/07 0000 2140 1845 1700 1439 Chemistry Troponin I (<0.11 ng/ml) 0.02 Coagulation APTT (25 - 37 SEC) 71 H 73 H 76 H 75 H 09/07 09/07 09/07 09/07 09/07 1248 1045 0850 0655 0600 Coagulation PT Cancelled INR Cancelled APTT (25 - 37 SEC) 72 H 76 H 72 H 59 H 09/07 09/07 09/06 0345 0035 2009 Chemistry Sodium (137 - 145 mmol/L) 136 L Potassium (3.5 - 5.1 mmol/L) 4.9 Chloride (98 - 107 mmol/L) 102 Carbon Dioxide (22 - 30 mmol/L) 24 Anion Gap (5 - 16) 11 BUN (9 - 20 mg/dL) 77 H Creatinine (0.7 - 1.2 mg/dL) 3.4 H Estimated GFR (>60 ml/min) 18 L Glucose (65 - 99 mg/dL) 171 H Calcium (8.4 - 10.2 mg/dL) 8.9 Phosphorus (2.5 - 4.5 mg/dL) 6.4 H Magnesium (1.6 - 2.3 mg/dL) 2.4 H Total Bilirubin (0.2 - 1.3 mg/dL) 1.3 AST (17 - 59 U/L) 24 ALT (21 - 72 U/L) 47 Albumin (3.5 - 5.0 g/dL) 2.0 L Coagulation PT (9.4 - 12.5 SEC) 32.1 H INR (0.90 - 1.17) 3.09 H APTT (25 - 37 SEC) 57 H 61 H 51 H Hematology CBC w Diff MAN DIFF ORDERED WBC (4.8 - 10.8 /CUMM) 30.3 *H RBC (4.70 - 6.10 /CUMM) 3.91 L Hgb (14.0 - 18.0 G/DL) 11.3 L Hct (42 - 52 %) 34.5 L MCV (80.0 - 94.0 FL) 88.3 MCH (27.0 - 31.0 PG) 29.0 RDW (11.5 - 14.5 %) 15.5 H Plt Count (130 - 400 /CUMM) 136 MPV (7.4 - 10.4 FL) 8.9 Gran % (42.2 - 75.2 %) 90.6 H Lymphocytes % (20.5 - 51.1 %) 1.9 L Monocytes % (1.7 - 9.3 %) 7.5 Eosinophils % (0 - 5 %) 0 Basophils % (0.0 - 2.0 %) 0 L Absolute Granulocytes (1.4 - 6.5 /CUMM) 27.4 H Segmented Neutrophils (42.2 - 75.2 %) 87 H Band Neutrophils (0.0 - 5.0 %) 2 Absolute Lymphocytes (1.2 - 3.4 /CUMM) 0.6 L Lymphocytes (20.5 - 51.1 %) 4 L Monocytes (1.7 - 9.3 %) 7 Absolute Monocytes (0.10 - 0.60 /CUMM) 2.3 H Absolute Eosinophils (0.0 - 0.7 /CUMM) 0 Absolute Basophils (0.0 - 0.2 /CUMM) 0 Platelet Estimate (ADEQUATE) ADEQUATE Hypochromic-Microcytic 1+ PUBS MCHC (33.0 - 37.0 G/DL) 32.8 L Other Body Source Fld Total RBCs Counted (%) 100 09/06 09/06 09/06 09/06 1830 1630 1430 1230 Chemistry Sodium (137 - 145 mmol/L) 137 Potassium (3.5 - 5.1 mmol/L) 5.0 Chloride (98 - 107 mmol/L) 100 Carbon Dioxide (22 - 30 mmol/L) 26 Anion Gap (5 - 16) 11 BUN (9 - 20 mg/dL) 70 H Creatinine (0.7 - 1.2 mg/dL) 3.3 H Estimated GFR (>60 ml/min) 19 L Glucose (65 - 99 mg/dL) 185 H Calcium (8.4 - 10.2 mg/dL) 8.4 Phosphorus (2.5 - 4.5 mg/dL) 6.0 H Magnesium (1.6 - 2.3 mg/dL) 2.3 Total Bilirubin (0.2 - 1.3 mg/dL) 1.3 AST (17 - 59 U/L) 32 ALT (21 - 72 U/L) 44 Albumin (3.5 - 5.0 g/dL) 2.1 L Coagulation APTT (25 - 37 SEC) 64 H 56 H 56 H 51 H Hematology CBC w Diff NO MAN DIFF REQ WBC (4.8 - 10.8 /CUMM) 30.0 H RBC (4.70 - 6.10 /CUMM) 4.08 L Hgb (14.0 - 18.0 G/DL) 11.8 L Hct (42 - 52 %) 36.1 L MCV (80.0 - 94.0 FL) 88.5 MCH (27.0 - 31.0 PG) 29.0 RDW (11.5 - 14.5 %) 15.4 H Plt Count (130 - 400 /CUMM) 134 MPV (7.4 - 10.4 FL) 8.8 Gran % (42.2 - 75.2 %) 95.2 H Lymphocytes % (20.5 - 51.1 %) 1.7 L Monocytes % (1.7 - 9.3 %) 3.1 Eosinophils % (0 - 5 %) 0 Basophils % (0.0 - 2.0 %) 0 L Absolute Granulocytes (1.4 - 6.5 /CUMM) 28.6 H Absolute Lymphocytes (1.2 - 3.4 /CUMM) 0.5 L Absolute Monocytes (0.10 - 0.60 /CUMM) 0.9 H Absolute Eosinophils (0.0 - 0.7 /CUMM) 0 Absolute Basophils (0.0 - 0.2 /CUMM) 0 PUBS MCHC (33.0 - 37.0 G/DL) 32.7 L
--- NOTE | 2016-09-09 11:40 | PN- Cardiology ---
Subjective Subjective: The patient is resting comfortably in bed. No episodes of recurrent loss of consciousness. No chest pain or palpitations. He remains nothing by mouth for pacemaker later today. Objective Vital Signs and I&Os Vital Signs Date Time Temp Pulse Resp B/P Pulse O2 O2 Flow FiO2 Ox Delivery Rate 09/09 0832 98 Nasal 2.0L Cannula 09/09 0800 Nasal 2.0L Cannula 09/09 0800 97.5 88 20 162/80 98 Nasal 2.0L Cannula 09/09 0700 98.5 91 15 142/85 99 Nasal 2.0L Cannula 09/09 0000 99 Nasal 2.0L Cannula 09/08 2300 98.7 82 10 149/86 99 Nasal 2.0L Cannula 09/08 1703 99 Nasal 2.0L Cannula 09/08 1600 98 Nasal 2.0L Cannula 09/08 1600 97.8 84 18 140/90 98 Nasal 2.0L Cannula Intake & Output 09/09 1600 09/09 0800 09/09 0000 09/08 1600 09/08 0800 09/08 0000 Intake Total 550 825 482.4 280 Output Total 400 1180 1040 1225 400 300 Balance -400 -1180 -490 -400 82.4 -20 Intake, IV 100 82.4 160 Intake, Oral 450 825 400 120 Number 1 0 Bowel Movements Output, Urine 400 1180 1040 1225 400 300 Patient 235 lb 224 lb Weight Physical Exam: General: no apparent distress. Alert. Laying flat. Eyes: No obvious scleral icterus. HEENT: No jugular venous distention, some lesions noted on his upper palate Cardiovascular: Normal intensity S1/S2. Irregular. Pacer pads on chest. Respiratory: no rales or ronchi Abdomen: no guarding or rebound tenderness. Musculoskeletal: No clubbing or cyanosis noted, LE edema bilaterally Skin: Rash noted, warm Neurologic: No gross focal deficits noted. Current Medications: Current Medications Sig/Dagoberto Start time Last Medication Dose Route Stop Time Status Admin Acetaminophen 650 MG Q6P PRN 08/23 2345 AC 09/07 PO 2045 Albuterol Sulfate 3 ML Q4P PRN 08/30 1645 AC 09/07 INH 2115 Ampicillin Sodium/ 3,000 MG Q12 09/04 1000 AC 09/09 Sulbactam Sodium IV 1026 Sodium Chloride 100 ML Benzocaine/Menthol 1 SUKH Q4P PRN 08/31 1100 AC PO Benzonatate 100 MG TID PRN 08/25 1115 AC 08/30 PO 1652 Bisacodyl 5 MG DAILY 08/27 1358 AC 09/08 PO 0951 Cholecalciferol 1,000 IU DAILY 08/29 1046 AC 09/08 PO 0951 Fluticasone 2 SPRAY DAILY 09/09 1045 AC Propionate KATHARINE Folic Acid 1 MG DAILY 08/24 1000 AC 09/08 PO 0951 Furosemide 40 MG ONCE ONE 09/08 1130 DC 09/08 IV 09/08 1131 1216 Guaifenesin 10 ML Q6P PRN 08/26 1530 AC 09/09 PO 0903 Melatonin 5 MG AT BEDTIME 09/08 2200 AC 09/08 PO 2204 Multivitamins 1 TAB DAILY 08/24 1000 AC 09/08 PO 0951 Omeprazole 40 MG DAILY AC 08/29 1045 AC 09/09 PO 0630 Phenol 2 SPRAY Q2P PRN 08/30 0900 AC 09/09 EXT 0903 Polyethylene Glycol 17 GM DAILY 08/27 1358 AC 09/08 PO 0950 Pramoxine HCl 1 BOT TIDPRN PRN 09/09 1045 AC EXT Prednisone 60 MG DAILY 09/01 1000 AC 09/08 PO 0951 Sodium Polystyrene 60 ML ONCE ONE 09/09 0745 DC 09/09 Sulfonate PO 09/09 0746 0902 Thiamine HCl 100 MG DAILY 08/24 1000 AC 09/08 PO 0951 Results Last 48 Hrs of Labs/Mics: Laboratory Tests 09/09/16 1115: PT Pending, INR Pending 09/09/16 0358: Anion Gap 11, Estimated GFR 17 L, BUN/Creatinine Ratio 28.9 H, Phosphorus 7.8 H, Magnesium 2.2, CBC w Diff NO MAN DIFF REQ, RBC 3.99 L, MCV 88.4, MCH 28.9, RDW 15.1 H, MPV 8.8, Gran % 92.9 H, Lymphocytes % 2.4 L, Monocytes % 4.7, Eosinophils % 0, Basophils % 0 L, Absolute Granulocytes 22.4 H, Absolute Lymphocytes 0.6 L, Absolute Monocytes 1.1 H, Absolute Eosinophils 0, Absolute Basophils 0, PUBS MCHC 32.7 L 09/08/16 0610: Anion Gap 9, Estimated GFR 17 L, BUN/Creatinine Ratio 28.0 H, Phosphorus 7.8 H, Magnesium 2.3, APTT 79 H, CBC w Diff NO MAN DIFF REQ, RBC 3.71 L, MCV 87.8, MCH 29.1, RDW 15.3 H, MPV 8.5, Gran % 86.2 H, Lymphocytes % 2.9 L, Monocytes % 10.2 H, Eosinophils % 0, Basophils % 0.7, Absolute Granulocytes 21.6 H, Absolute Lymphocytes 0.7 L, Absolute Monocytes 2.5 H, Absolute Eosinophils 0, Absolute Basophils 0.2, PUBS MCHC 33.2 09/08/16 0000: APTT 71 H 09/07/16 2140: Troponin I 0.02 09/07/16 1845: APTT 73 H 09/07/16 1700: APTT 76 H 09/07/16 1439: APTT 75 H 09/07/16 1248: APTT 72 H Recent Imaging Studies: Telemetry tracings were personally reviewed shows atrial fibrillation without recurrent sustained pauses Repeat echocardiogram CONCLUSIONS Severely reduced left ventricular systolic function with akinesia of the inferior wall. Mild Aortic regurgitation and mild to moderate Mitral regurgitation with mild pulmonary hypertension. Assessment/Plan Assessment/Plan 1. 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 Persistent atrial fibrillation on anticoagulation with Coumadin on hold 3. History of coronary artery disease/prior myocardial infarction with mild to moderate left ventricular dysfunction by previous noninvasive imaging, now with severe LV dysfunction 4. NSVT on telemetry 5. Small bilateral pleural effusions 6. Chronic left bundle branch block 7. Hx HTN 8. Venous insufficiency 9. 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 Status post prolonged asystolic pauses Recent events noted. Patient was having long pauses of asystole with minimal ventricular escape. His beta freddy has been appropriately discontinued but he still meets clear indication for permanent pacemaker. This will likely need to be upgraded to a biventricular AICD in the future depending on future EF assessment. I have set his bedside transcutaneous pacemaker to backup pacing if needed but currently he has not had any recurrent events on telemetry. We are holding anticoagulation until after the pacemaker is in place. We'll plan to restart his beta freddy once permanent pacemaker is in place. Addition of LISETH inhibitor therapy is not currently appropriate. Jonh Stanley MD [facility] Continue telemetry? Yes
[2016-09-09 12:03] LABS: PT 18.9 SEC (9.4-12.5)
--- NOTE | 2016-09-09 13:01 | NUR ---
Physical Therapy. PT re-consult received and chart reviewed. PT was placed on hold w/ PT on 08/29/16 as he was I and did stairs. Pt has since been transfered to ICU and nsg activity reports assistx2. Pt going for pacemaker today. PT will f/u as appropriate to assess mobility.
[2016-09-09 13:15] VITALS: BP 158/90
--- NOTE | 2016-09-09 13:40 | NUR ---
TO OR VIA STRETCHER. ON TELE MONITOR, O2 2L NC. ALERT ORIENTED X3. SHADY COMMERCIAL LENDING ASSISTANT WITH PATIENT TO OR. NOTIFIED DR CHAPPELL OF PATIENT RECEIVED IV 40 MG LASIX AT 1315. SON AT BEDSIDE.
--- NOTE | 2016-09-09 15:30 | RADIOLOGY REPORT ---
EXAMINATION:\H\ \N\XR CHEST CLINICAL INFORMATION: Single lead pacemaker insertion in operating room. COMPARISON: CXR from 08/30/2016 TECHNIQUE: Intraoperative C-arm fluoroscopic imaging of the chest was utilized. FLUOROSCOPY TIME: 3.7 minutes. NUMBER OF SAVED IMAGES: 2 FINDINGS: Fluoroscopic images of the chest were obtained during insertion of a single lead cardiac pacemaker. A right ventricular lead is shown to be in its expected position. A dialysis catheter terminates in the region of the cavoatrial junction. IMPRESSION: Fluoroscopic imaging of the chest was utilized within the operating room for right ventricular lead cardiac pacemaker insertion.
--- NOTE | 2016-09-09 16:18 | RADIOLOGY REPORT ---
EXAMINATION: XR PORTABLE CHEST CLINICAL INFORMATION: Post pacemaker placement. COMPARISON: 08/30/2016 TECHNIQUE: Portable AP view of the chest was obtained. FINDINGS: There is a new single lead left-sided pacer the tip of the lead in the left ventricle. There is a right IJ tunneled hemodialysis catheter with the functional tip in the right atrium. Cardiac silhouette is enlarged but stable. The lung volumes are low. No consolidation or significant effusion. No pulmonary edema. No pneumothorax. IMPRESSION: No pneumothorax status post left-sided pacer placement.
--- NOTE | 2016-09-09 16:22 | PN- Infect Dx ---
Subjective Subjective: Afebrile without complaints Objective Last 24 Hrs of Vital Signs/I&O Vital Signs Date Time Temp Pulse Resp B/P Pulse O2 O2 Flow FiO2 Ox Delivery Rate 09/09 1315 96.1 87 18 158/90 100 Nasal 2.0L Cannula 09/09 0832 98 Nasal 2.0L Cannula 09/09 0800 Nasal 2.0L Cannula 09/09 0800 97.5 88 20 162/80 98 Nasal 2.0L Cannula 09/09 0700 98.5 91 15 142/85 99 Nasal 2.0L Cannula 09/09 0000 99 Nasal 2.0L Cannula 09/08 2300 98.7 82 10 149/86 99 Nasal 2.0L Cannula 09/08 1703 99 Nasal 2.0L Cannula Intake & Output 09/09 1600 09/09 0800 09/09 0000 Intake Total 75 550 Output Total 700 1180 1040 Balance -625 -1180 -490 Intake, IV 100 Intake, Oral 75 450 Output, Urine 700 1180 1040 Patient 235 lb Weight Physical Exam Other Physical Findings: He appears comfortable in no acute distress Lungs decreased breath sounds bilaterally Heart irregular rhythm with no murmur Extremities bilateral thigh swelling, right greater than left, with mild induration and tenderness on the right, but with no erythema; right tibial ulcer and discoloration of the right leg below the knee unchanged Results Last 24 Hours of Lab Results: Laboratory Tests 09/09 09/09 1115 0358 Chemistry Sodium (137 - 145 mmol/L) 139 Potassium (3.5 - 5.1 mmol/L) 5.5 H Chloride (98 - 107 mmol/L) 104 Carbon Dioxide (22 - 30 mmol/L) 24 Anion Gap (5 - 16) 11 BUN (9 - 20 mg/dL) 102 *H Creatinine (0.7 - 1.2 mg/dL) 3.5 H Estimated GFR (>60 ml/min) 17 L BUN/Creatinine Ratio (7 - 25 %) 28.9 H Phosphorus (2.5 - 4.5 mg/dL) 7.8 H Magnesium (1.6 - 2.3 mg/dL) 2.2 Coagulation PT (9.4 - 12.5 SEC) 18.9 H INR (0.90 - 1.17) 1.81 H Hematology CBC w Diff NO MAN DIFF REQ WBC (4.8 - 10.8 /CUMM) 24.1 H RBC (4.70 - 6.10 /CUMM) 3.99 L Hgb (14.0 - 18.0 G/DL) 11.5 L Hct (42 - 52 %) 35.3 L MCV (80.0 - 94.0 FL) 88.4 MCH (27.0 - 31.0 PG) 28.9 RDW (11.5 - 14.5 %) 15.1 H Plt Count (130 - 400 /CUMM) 140 MPV (7.4 - 10.4 FL) 8.8 Gran % (42.2 - 75.2 %) 92.9 H Lymphocytes % (20.5 - 51.1 %) 2.4 L Monocytes % (1.7 - 9.3 %) 4.7 Eosinophils % (0 - 5 %) 0 Basophils % (0.0 - 2.0 %) 0 L Absolute Granulocytes (1.4 - 6.5 /CUMM) 22.4 H Absolute Lymphocytes (1.2 - 3.4 /CUMM) 0.6 L Absolute Monocytes (0.10 - 0.60 /CUMM) 1.1 H Absolute Eosinophils (0.0 - 0.7 /CUMM) 0 Absolute Basophils (0.0 - 0.2 /CUMM) 0 PUBS MCHC (33.0 - 37.0 G/DL) 32.7 L Last 24 Hours of Hemal Results: No recent cultures Assessment/Plan Impression: Stable, awaiting pacemaker placement, which is scheduled for later today, for long pauses of asystole noted on the monitor. 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 A repeat skin biopsy for immunofluorescence was performed yesterday, with results pending. Suggestion: 1. Await pacemaker placement 2. Follow-up results of recent repeat skin biopsy 3. Discontinue Unasyn in the a.m.
--- NOTE | 2016-09-09 16:56 | Cons- Thoracic Surgery ---
General Information and HPI Consulting Request Date of Consult: 09/08/16 Requested By: HUI BAKER,MANOLO Holt Reason for Consult: Evaluate for permanent pacemaker placement Source of Information: patient, old records, PCP Exam Limitations: no limitations History of Present Illness: Patient is 71-year-old gentleman with chronic atrial fibrillation admitted for a rash and renal failure. Last night he had multiple syncopal episodes and at that time was found to be severely bradycardic with a heart rate in the 30s. There is also a change in the configuration of his QRS complex to a left and right bundle branch block pattern. Cardiothoracic surgical consultation is asked for placement of permanent pacemaker. Allergies/Medications Allergies: Coded Allergies: heparin (Intermediate, HIT 09/04/16) Home Med List: Aspirin (Aspirin*) 81 MG TAB.CHEW 81 MG PO DAILY HEART HEALTH (Reported) Metoprolol Tartrate 50 MG TABLET 1 TAB PO DAILY AFIB (Reported) Multivit-Min/FA/Lycopen/Lutein (Centrum Silver Men Tablet) 300 MCG-600 MCG-300 MCG TABLET 1 TAB PO DAILY SUPPLEMENT (Reported) Warfarin Sodium 5 MG TABLET 0.5 TAB PO 1700 BLOOD THINNER (Reported) Please check your INR regularly to keep in between 2-3. Warfarin Sodium 5 MG TABLET 1 TAB PO 1700 BLOOD THINNER (Reported) Please check your INR regularly to keep it in between 2-3. Current Medications: Current Medications Sig/Dagoberto Start time Last Medication Dose Route Stop Time Status Admin Acetaminophen 650 MG Q6P PRN 08/23 2345 AC 09/07 PO 2045 Albuterol Sulfate 3 ML Q4P PRN 08/30 1645 AC 09/07 INH 2115 Ampicillin Sodium/ 3,000 MG Q12 09/04 1000 DC 09/09 Sulbactam Sodium IV 1026 Sodium Chloride 100 ML Benzocaine/Menthol 1 SUKH Q4P PRN 08/31 1100 AC PO Benzonatate 100 MG TID PRN 08/25 1115 AC 08/30 PO 1652 Bisacodyl 10 MG ONCE ONE 09/09 1700 AC UT 09/09 1701 Bisacodyl 5 MG DAILY 08/27 1358 AC 09/08 PO 0951 Cefazolin Sodium 2 GM IQ8 09/09 2200 AC N/A 1 UNIT IV 09/10 0829 Cholecalciferol 1,000 IU DAILY 03/06 1046 AC 09/08 PO 0951 Fluticasone 2 SPRAY DAILY 09/09 1045 AC Propionate KATHARINE Folic Acid 1 MG DAILY 08/24 1000 AC 09/08 PO 0951 Furosemide 40 MG ONCE ONE 09/09 1145 DC 09/09 IV 09/09 1146 1307 Guaifenesin 10 ML Q6P PRN 08/26 1530 AC 09/09 PO 0903 Hydrocortisone/ 1 BEVERLY TIDPRN PRN 09/09 1200 AC Pramoxine UT Melatonin 5 MG AT BEDTIME 09/08 2200 AC 09/08 PO 2204 Multivitamins 1 TAB DAILY 08/24 1000 AC 09/08 PO 0951 Omeprazole 40 MG DAILY AC 08/29 1045 AC 09/09 PO 0630 Oxycodone/ 1 TAB Q4-6 PRN PRN 09/09 1630 AC Acetaminophen PO Oxycodone/ 2 TAB Q4-6 PRN PRN 09/09 1630 AC Acetaminophen PO Phenol 2 SPRAY Q2P PRN 08/30 0900 AC 09/09 EXT 0903 Polyethylene Glycol 17 GM DAILY 08/27 1358 AC 09/08 PO 0950 Pramoxine HCl 1 BOT TIDPRN PRN 09/09 1045 DC EXT Prednisone 60 MG DAILY 09/01 1000 AC 09/08 PO 0951 Sodium Polystyrene 60 ML ONCE ONE 09/09 0745 DC 09/09 Sulfonate PO 09/09 0746 0902 Thiamine HCl 100 MG DAILY 08/24 1000 AC 09/08 PO 0951 Past History Medical History Blood Transfusion Hx: Yes Neurological: NONE EENT: NONE Cardiovascular: AFIB, hypertension, RUPTURED VARICOSE VEIN Respiratory: NONE Gastrointestinal: HEMMORHOIDS Hepatic: NONE Renal: NONE Musculoskeletal: NONE Psychiatric: NONE Endocrine: NONE Blood Disorders: NONE Cancer(s): NONE 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 child Services at Home: None Primary Language: Citizen Of [place] Smoking Status: Never Smoked ETOH Use: occasional use Illicit Drug Use: denies illicit drug use Functional Ability ADLs Independent: dressing, eating, toileting, bathing. Ambulation: independent IADLs Independent: shopping, housework, finances, food prep, telephone, transportation , medication admin. 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 Patient had last night. He does not remember whether or not he was in her out of bed and whether or not he fell. He is had no chest pain and no previous syncopal episodes. There is been no previous similar presyncope. The Respess 12 point review of systems unremarkable for his current problem. Exam & Diagnostic Data Vital Signs and I&O Vital Signs Date Time Temp Pulse Resp B/P Pulse O2 O2 Flow FiO2 Ox Delivery Rate 09/09 1315 96.1 87 18 158/90 100 Nasal 2.0L Cannula 09/09 0832 98 Nasal 2.0L Cannula 09/09 0800 Nasal 2.0L Cannula 09/09 0800 97.5 88 20 162/80 98 Nasal 2.0L Cannula 09/09 0700 98.5 91 15 142/85 99 Nasal 2.0L Cannula 09/09 0000 99 Nasal 2.0L Cannula 09/08 2300 98.7 82 10 149/86 99 Nasal 2.0L Cannula 09/08 1703 99 Nasal 2.0L Cannula Intake & Output 09/09 1600 09/09 0800 09/09 0000 09/08 1600 09/08 0800 09/08 0000 Intake Total 75 550 825 482.4 280 Output Total 700 1180 1040 1225 400 300 Balance -625 -1180 -490 -400 82.4 -20 Intake, IV 100 82.4 160 Intake, Oral 75 450 825 400 120 Number 1 0 Bowel Movements Output, Urine 700 1180 1040 1225 400 300 Patient 235 lb 224 lb Weight Physical Exam: Physical examination he is lying in bed and appears well. His skin is warm and well-perfused with no suspicious lesions noted. There is a severe ecchymosis along the right lower extremity which is related to a previous rupture of a varicose vein. The sclerae are anicteric and mucous membranes are moist. There is no cervical or subclavicular lymphadenopathy. His breath sounds are clear full bilaterally with no wheezes or rhonchi noted. Cardiac exam shows an irregular rhythm with no murmurs or extra sounds. His abdomen is soft and nontender with no masses. The periphery shows no cyanosis clubbing or edema. His neurologic exam is grossly normal motor sensory function. Last 24 Hours of Labs: Laboratory Tests 09/09 09/09 1115 0358 Chemistry Sodium (137 - 145 mmol/L) 139 Potassium (3.5 - 5.1 mmol/L) 5.5 H Chloride (98 - 107 mmol/L) 104 Carbon Dioxide (22 - 30 mmol/L) 24 Anion Gap (5 - 16) 11 BUN (9 - 20 mg/dL) 102 *H Creatinine (0.7 - 1.2 mg/dL) 3.5 H Estimated GFR (>60 ml/min) 17 L BUN/Creatinine Ratio (7 - 25 %) 28.9 H Phosphorus (2.5 - 4.5 mg/dL) 7.8 H Magnesium (1.6 - 2.3 mg/dL) 2.2 Coagulation PT (9.4 - 12.5 SEC) 18.9 H INR (0.90 - 1.17) 1.81 H Hematology CBC w Diff NO MAN DIFF REQ WBC (4.8 - 10.8 /CUMM) 24.1 H RBC (4.70 - 6.10 /CUMM) 3.99 L Hgb (14.0 - 18.0 G/DL) 11.5 L Hct (42 - 52 %) 35.3 L MCV (80.0 - 94.0 FL) 88.4 MCH (27.0 - 31.0 PG) 28.9 RDW (11.5 - 14.5 %) 15.1 H Plt Count (130 - 400 /CUMM) 140 MPV (7.4 - 10.4 FL) 8.8 Gran % (42.2 - 75.2 %) 92.9 H Lymphocytes % (20.5 - 51.1 %) 2.4 L Monocytes % (1.7 - 9.3 %) 4.7 Eosinophils % (0 - 5 %) 0 Basophils % (0.0 - 2.0 %) 0 L Absolute Granulocytes (1.4 - 6.5 /CUMM) 22.4 H Absolute Lymphocytes (1.2 - 3.4 /CUMM) 0.6 L Absolute Monocytes (0.10 - 0.60 /CUMM) 1.1 H Absolute Eosinophils (0.0 - 0.7 /CUMM) 0 Absolute Basophils (0.0 - 0.2 /CUMM) 0 PUBS MCHC (33.0 - 37.0 G/DL) 32.7 L Other Results: Rhythm strips from his syncopal episode show a heart rate of 30 with a change in configuration of his QRS complex from a [id number] bundle branch pattern. Assessment/Plan Assessment/Plan The patient is a 71-year-old gentleman with chronic atrial fibrillation and new high-grade AV block leading to syncopal episodes. A permanent pacemaker is indicated after discussion with Dr. Tay given the chronic nature of his atrial fibrillation we will go ahead with a single lead placement. The patient is on R Gatchell been currently. There is been a difference of opinion from multiple sources in regards to the waiting time for Gatchell Giuseppe to be off prior to a major surgical procedure. Initial sources told me directly that was 12 hours also plans were made for placement of the pacemaker on Monday. We will place an MRI compatible device as a single lead VVI pacemaker. Risks and benefits of the procedure been explained to the patient and he understands and agrees. Consult Acknowledgment - Thank you for your consult request.
--- NOTE | 2016-09-09 16:59 | Operative Report ---
Operative/Inv Procedure Report Surgery Date: 09/09/16 Name of Procedure: MRI compatible single lead permanent pacemaker Pre-Operative Diagnosis: Symptomatic bradycardia with syncope Post-Operative Diagnosis: Same Estimated Blood Loss: scant Surgeon/Waiter/Waitress Dining Car: Jamin Coombs MD Anesthesia: local monitored anesthesi Operative/Procedure Note Note: After placement of monitoring lines the patient's left chest and shoulder were prepped and draped in a sterile fashion. 1% lidocaine was used as a local anesthetic. Incision was made in the deltopectoral groove and carried down to prepectoralis fascia. Extensive dissection was done and no cephalic vein was found. The patient was then placed in Trendelenburg position and the subclavian vein was cannulated through the upper pole of the incision and a wire was passed into the right atrium under fluoroscopic guidance. A sheath dilator was passed over the wire and a Medtronic ventricular lead model #[id number] was advanced through the sheath into the pulmonary outflow tract under fluoroscopic guidance. The lead was withdrawn into the right ventricular cavity and positioned at the right ventricular apex. R waves were measured at 6.3 mV. The pacing threshold was at 0.3 V with a current of 0.8 mA and an impedance of 909 ohms. Leads were secured to the prepectoralis fascia with Ethibond sutures. There were then connected to an MRI compatible single chamber pacemaker generator. Pacemaker pocket was fashioned over the prepectoralis fashion it was irrigated with antibiotic irrigation. Hemostasis was achieved with electrocautery. The wound was closed in layers deep Vicryl suture followed by running Vicryl subarticular suture. The patient tolerated the procedure well and was brought to the recovery room in stable condition. CC: HUI BAKER,JAYLAN Sal[place]; HUI BAKER,MANOLO Holt; CHAPITO BAKER,BRETT
--- NOTE | 2016-09-09 17:13 | Event Note ---
Event Note Event Note: Pacemaker implantation went well. Spoke to Dr. Coombs, who recommends starting heparin tomorrow (no bolus) or we can start warfarin tonight. I tried to call Dr. Penn from pathology to inquire about the preliminary pathology result from the skin biopsy at about 230pm, and left my beeper number. Still have not received a callback at 710pm. However, since we are still deciding on pursuing kidney biopsy, we will hold warfarin for now. Metoprolol ordered. Unasyn discontinued.
[2016-09-09 18:00] VITALS: BP 150/90
--- NOTE | 2016-09-09 21:49 | NUR ---
PT OFF FLOOR IN OR. RECEIVED REPORT FROM BLOW DOWN HELPER AND BLACK ASH WORKER. PT RETURNED TO ROOM 101 AT 1730. AWAKE AND ALERT. FAMILY AT BEDSIDE.
[2016-09-09 22:00] VITALS: BP 148/72
--- NOTE | 2016-09-09 22:48 | PN- Thoracic Surgery ---
Subjective Subjective: POD #1 s/p PPM placement Pt has no major complaints at this time. Pain is controlled. He is tolerating sips and voiding frequently (every hour per RN report). Denies HERRERA, dizziness, CP , SOB. Objective Vital Signs and I&Os Vital Signs Date Time Temp Pulse Resp B/P Pulse O2 O2 Flow FiO2 Ox Delivery Rate 09/09 2013 98.0 88 16 148/90 09/09 1901 98 Room Air Room Air 09/09 1800 97.0 90 16 150/90 98 Room Air 09/09 1315 96.1 87 18 158/90 100 Nasal 2.0L Cannula 09/09 0832 98 Nasal 2.0L Cannula 09/09 0800 Nasal 2.0L Cannula 09/09 0800 97.5 88 20 162/80 98 Nasal 2.0L Cannula 09/09 0700 98.5 91 15 142/85 99 Nasal 2.0L Cannula 09/09 0000 99 Nasal 2.0L Cannula 09/08 2300 98.7 82 10 149/86 99 Nasal 2.0L Cannula Intake & Output 09/09 1600 09/09 0800 09/09 0000 09/08 1600 09/08 0800 09/08 0000 Intake Total 75 550 825 482.4 280 Output Total 700 1180 1040 1225 400 300 Balance -625 -1180 -490 -400 82.4 -20 Intake, IV 100 82.4 160 Intake, Oral 75 450 825 400 120 Number 1 0 Bowel Movements Output, Urine 700 1180 1040 1225 400 300 Patient 235 lb 224 lb Weight Physical Exam: Gen: Pt is resting, but easily arousable and verbalizing well. Chest: Clear BS bilaterally. L chest wound dressing is c/d/i. L arm remains in a sling, which was adjusted for improved immobilization. Results Recent Imaging Studies: Postop CXR: No pneumothorax status post left-sided pacer placement. Assessment/Plan Assessment/Plan Pt is a 71 yo M who is now POD #0 s/p placement of MRI safe single lead pacemaker for symptomatic bradycardia with associated syncope. Pt remains stable from a surgical standpoint. -Ok to advance diet as tolerated. -Per notes, Dr. Coombs gave the ok to resume heparin in AM or Coumadin tonight. Coumadin is being held for now until renal bx decision is made. -Leave pressure dressing in place and use sling for immobilization. -Medical managment per primary team.
[2016-09-10 06:00] VITALS: BP 148/90
[2016-09-10 06:28] LABS: ABSOLUTE BASOPHIL COUNT 0 /CUMM (0.0-0.2); ABSOLUTE EOSINOPHIL COUNT 0.1 /CUMM (0.0-0.7); ABSOLUTE GRANULOCYTE CT 14.4 /CUMM (1.4-6.5); ABSOLUTE LYMPH COUNT 0.3 /CUMM (1.2-3.4); ABSOLUTE MONOCYTE COUNT 0.2 /CUMM (0.10-0.60); BASOPHIL % 0 % (0.0-2.0); EOSINOPHIL % 0.4 % (0-5); HEMATOCRIT 36.6 % (42-52); MEAN CORPUSCULAR HGB 28.6 PG (27.0-31.0); MEAN CORPUSCULAR HGB CONC 32.3 G/DL (33.0-37.0); MEAN CORPUSCULAR VOLUME 88.6 FL (80.0-94.0); MEAN PLATELET VOLUME 8.9 FL (7.4-10.4); PLATELET COUNT 132 /CUMM (130-400); RBC DISTRIBUTION WIDTH 15.3 % (11.5-14.5); RED BLOOD CELL CT 4.13 /CUMM (4.70-6.10)
[2016-09-10 06:57] LABS: WHITE BLOOD CELL COUNT 14.9 /CUMM (4.8-10.8)
[2016-09-10 08:00] VITALS: BP 140/84
--- NOTE | 2016-09-10 08:42 | PN- Housestaff ---
APURVA BAKER,[facility] 09/10/16 0841: Subjective Follow-up For: asystole bradycardia HSP Tele-Events Since Last Visit: paced rhythm with underlying atrial fibrillations/p permanent pacemaker placement yesterday Subjective: Patient seen and examined this morning. He was lying in bed in no acute distress. He is status post placement of a pacemaker. Complains of mild epigastric discomfort which he thinks is because he ate oranges last night. He has been afebrile overnight, heart rate has been ranging between 70-80. No other complaints of chest pain, palpitation, nausea, vomiting, any urinary or bowel complaints. Review of Systems Constitutional: Denies: chills, fever. Cardiovascular: Denies: chest pain, palpitations. Respiratory: Reports: cough. Denies: short of breath, sputum production. Gastrointestinal: Denies: abdominal pain, constipation, diarrhea, nausea, vomiting. Genitourinary: Reports: no symptoms. Objective Last 24 Hrs of Vital Signs/I&O Vital Signs Date Time Temp Pulse Resp B/P Pulse O2 O2 Flow FiO2 Ox Delivery Rate 09/10 1606 97.4 87 20 130/84 96 Room Air 09/10 1314 98.7 74 16 142/86 97 Room Air 09/10 1116 99 Room Air Room Air 09/10 1016 84 162/90 09/10 0800 Room Air 09/10 0800 96.5 88 18 140/84 98 Room Air 09/10 0600 97.0 90 18 148/90 96 Room Air 09/09 2200 97.8 88 16 148/72 99 Room Air 09/09 2014 98.0 88 16 148/90 09/09 1901 98 Room Air Room Air Intake & Output 09/10 1600 09/10 0800 09/10 0000 Intake Total 360 100 250 Output Total 450 1270 440 Balance -90 -1170 -190 Intake, IV 50 Intake, Oral 360 100 200 Number 1 Bowel Movements Output, Urine 450 1270 440 Patient 102.965 kg Weight Physical Exam General Appearance: Alert, Oriented X3, Cooperative, No Acute Distress Cardiovascular: Regular Rate, Normal S1, Normal S2 Lungs: Clear to Auscultation Abdomen: Normal Bowel Sounds, Soft, No Tenderness Extremities: No Clubbing, No Cyanosis, No Edema, venous stasis changes b/l Current Medications: Current Medications Sig/Dagoberto Start time Last Medication Dose Route Stop Time Status Admin Acetaminophen 650 MG Q6P PRN 08/23 2345 AC 09/07 PO 2045 Albuterol Sulfate 3 ML Q4P PRN 08/30 1645 AC 09/07 INH 2115 Benzocaine/Menthol 1 SUKH Q4P PRN 08/31 1100 AC PO Benzonatate 100 MG TID PRN 08/25 1115 AC 08/30 PO 1652 Bisacodyl 5 MG DAILY 08/27 1358 AC 09/09 PO 1823 Cefazolin Sodium 2 GM IQ8 09/09 2200 DC 09/10 N/A 1 UNIT IV 09/10 0829 0808 Cholecalciferol 1,000 IU DAILY 08/29 1046 AC 09/10 PO 1010 Fluticasone 2 SPRAY DAILY 09/09 1045 AC 09/10 Propionate KATHARINE 1011 Folic Acid 1 MG DAILY 08/24 1000 AC 09/10 PO 1009 Guaifenesin 10 ML Q6P PRN 08/26 1530 AC 09/09 PO 0903 Heparin Sodium/ 25,000 UNIT Q24H 09/10 1200 CAN Dextrose IV Dextrose/Water 500 ML Hydrocortisone/ 1 BEVERLY TIDPRN PRN 09/09 1200 AC Pramoxine WI Melatonin 5 MG AT BEDTIME 09/08 2200 AC 09/09 PO 2207 Metoprolol Succinate 100 MG DAILY 09/09 1730 AC 09/10 PO 1016 Metoprolol Tartrate 5 MG ONCE ONE 09/10 1545 CAN IV 09/10 1546 Multivitamins 1 TAB DAILY 08/24 1000 AC 09/10 PO 1010 Omeprazole 40 MG DAILY AC 08/29 1045 AC 09/10 PO 0614 Oxycodone/ 1 TAB Q4-6 PRN PRN 09/09 1630 AC Acetaminophen PO Oxycodone/ 2 TAB Q4-6 PRN PRN 09/09 1630 AC Acetaminophen PO Phenol 2 SPRAY Q2P PRN 08/30 0900 AC 09/09 EXT 0903 Polyethylene Glycol 17 GM DAILY 08/27 1358 AC 09/10 PO 1007 Prednisone 60 MG DAILY 09/01 1000 AC 09/10 PO 1009 Thiamine HCl 100 MG DAILY 08/24 1000 AC 09/10 PO 1010 Last 24 Hrs of Lab/Hemal Results Last 24 Hrs of Labs/Mics: Laboratory Tests 09/10/16 0545: Anion Gap 11, Estimated GFR 19 L, BUN/Creatinine Ratio 32.4 H, Phosphorus 7.7 H, Magnesium 2.0, CBC w Diff NO MAN DIFF REQ, RBC 4.13 L, MCV 88.6, MCH 28.6, RDW 15.3 H, MPV 8.9, Gran % 96.0 H, Lymphocytes % 1.9 L, Monocytes % 1.7, Eosinophils % 0.4, Basophils % 0 L, Absolute Granulocytes 14.4 H, Absolute Lymphocytes 0.3 L, Absolute Monocytes 0.2, Absolute Eosinophils 0.1, Absolute Basophils 0, PUBS MCHC 32.3 L Assessment/Plan Assessment: 71-year-old man with PMH of atrial fibrillation on Coumadin, CAD status post stents, with varicose veins, hospitalized 3 weeks [employer] after trauma to the right leg requiring 2 units of blood, with persistent swelling, discomfort and discoloration of the right leg since then, self treated persistent leg swelling with Lasix several days prior to admission, admitted on August 23 after presenting to the ED with a diffuse petechial rash that was more localized one week [employer], with no associated fevers or chills. Pt was initially admitted to general medicine. He was transferred to telemetry from [facility] for close cardiac monitoring while aspirin and warfarin were held pending renal biopsy. Skin biopsy on 08/26/[address] 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 He also developed REAGAN ( with BUN/cr up to 124/7.4 , was 27/1.7 on admission) and hyperkalemia (up to 6.3 ). 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 His K and kidney functions has improved with dialysis. After steroids was started, developed leukocytosis with WBC up to 43.3 (normal wbc on admission), afebrile (although on steroids) with no left shift, and did not improve with unasyn for presumable RLE cellulitis. Leukocytosis improving. Renal biopsy was delayed initially due to supratherapeutic INR (pt on warfarin for afib) for which renal did not feel comfortable reversing with FFP. So heparin drip started while warfarin held. There was then a concern that he might have developed heparin induced thrombocytopenia (highest 186, lowest 72), with a high probability pre-test likelihood based on 4T score, so heparin drip was subsequently stopped, and argatroban drip started. Subsequently, heparin induced platelet ab, heparin-pf4 ab od 0.013, and serotonin release assay were found to be negative, ruling out HIT, with platelet trending up nicely to normal range. Pt was transferred to ICU for close nursing monitoring while on argatroban drip. Of note, pt had episode of NSVT on telemetry, for which his metoprolol dose was increased to 100 without subsequent recurrence. However, on 09/07/16 evening, he had 4 episodes of prolonged asystole (up to 2 minutes each time) in a 30 minute timeframe, he is DNR/DNI. No chest compressions done, but he regained consciousness with sternal rubs. EKG showed advanced AV block with HR in the low 30s, and a new RBBB. Metoprolol subsequently held pending pacemaker placement. He was maintained on backup pacemaker while awaiting permanent pacemaker placement. Argatroban was held in anticipation for surgery, and he is to be restarted on heparin drip after the surgery now that HIT has been ruled out. Skin biopsy with immunofluorescence was done on 09/08/16. Renal biopsy is still being considered. Active issues include: # Hx of asystole, advanced av block, new RBBB, pacemaker to be placed # Constipation # Possible Henoch-Schnlein purpura on prednisone and dialysis # HIT ruled out # Leukocytosis, on steroids , with RLE pain, possible cellulitis, on Unasyn # Atrial fibrillation (was on warfarin at home, currently being held) # Episode of NSVT with no reccurent epidose after increasing metoprolol # Hx of CAD (aspirin on hold pending biopsy, await starting statin) # Hx of asystole, advanced av block, new RBBB - Stat echo 09/08/16: Severely reduced left ventricular systolic function with akinesia of the inferior wall. Mild Aortic regurgitation and mild to moderate Mitral regurgitation with mild pulmonary hypertension. EF 20-25% * s/p pacemaker placement with Dr. Coombs 09/09, * Argatroban on hold. IV heparin to be started after surgery (most likely wait at least 24 hours). * Metoprolol 100mg daily. # Henoch-Schnlein purpura - Diffuse petechial rash, first noted one week prior to admission, and persistent ecchymosis, edema and mild discomfort of the right leg - Subsequently developed REAGAN and hyperkalemia with microscopic hematuria, with improvement of creatinine due to dialysis - Cough with hemoptysis (not likely to be pulmonary renal based on chest ct) - Elevated ESR 36, CRP >15, RF 13.9 - Negative hepatitis panel, HIV, MARTIN, ANCA, cryoglobulin. Normal C3 and C4. * Pending renal biopsy by IR pending nephrology decision. * Repeat skin biopsy completed on 09/09. Await formal results * Nephrology on board * Dialysis started * Hematology on board (Dr. High) * on 60mg PO prednisone daily * 20mg IV lasix given on 09/07 for edema. 40mg IV lasix X 1 given on 09/08 and . * Pramoxine for itching * PT # HIT ruled out - Platelet down from highest 186 --> lowest 72, now trending up - Received heparin from 09/01/16 to 09/04/16 - 4T high probability for HIT - Heparin induced platelet ab negative and heparin-pf4 ab od 0.013 (negative). - Serotonin release assay negative * Monitor CBC daily # Constipation - Given bowel regimen and suppository * Order more suppository as needed # Hemoptysis with cough - Due to warfarin use? - Sputum with streak of blood * Pulm consult appreciated, Dr. Jensen has signed off * Flonase * Robitussin # Atrial fibrillation ( on coumadin at home) - CHADVASc score is 4 putting him at mod-high risk for stroke, on ArgatrobanCoumadin on hold due to possible renal biopsy * Heparin drip discontinued due to possible HIT * Argatroban drip on hold for pacemaker implantation. To be on heparin drip after # Hx of CAD/prior myocardial infarction with mild to moderate left ventricular dysfunction by previous noninvasive imaging, now with severe LV dysfunction - Despite the cardiomyopathy he is not a candidate for addition of LISETH-I at this time * Restart aspirin 81 mg when medically cleared * Cardio recommend adding low-dose Lipitor 20 mg by mouth daily when medically cleared # One episode of NSVT on telemetry, chronic LBBB (resolved) * Increased metoprolol to Toprol XL 100 mg daily, now on hold # Hx of HTN * Toprol on hold # Leukocytosis up to 43.3, on steroids # Possible Cellulitis of right thigh secondary to lower extremity ulceration - X-ray of the right tibia/fibula negative. - Doppler of the right lower extremity negative * ID input appreciated * Unasyn 3000 q12 started on 09/04/16 pm. WBC continues to be elevated despite being on abx. Now day #6 of abx. Discontinue unasyn after pacemaker placement. * Wound consult appreciated * Monitor WBC * Xeroform and leg elevation above his heart Diet: NPO pending surgery DVT ppx: argatroban onhold for surgery, to be restarted on heparin drip DNR/DNI In the event of any changes or updates please contact his son Paulo at [phone] or [id number] Sandra who is a hospice nurse at [phone] Consults: cardio, nephro, ID, thoracic surgery (Dr. Coombs pacemaker), gen surgery (Dr. Bonilla, skin biopsy), pulm (signed off), rheum , PT, nutrition Labs: CBC, BEP, mag, phos for low platelet count, arrythmia, reagan on dialysis Problem List: 1. Henoch-Schonlein purpura Pain Ratin Pain Location: one Pain Goal: Remain pain free Pain Plan: mild pp Tomorrow's Labs & Rationales: bep cbc Consulting Request: Consulting Specialty: Hematology/Oncology APURVA BAKER,[place] 09/10/16 1309: Attending MD Review Statement Attending Statement Attending MD Statement: examined this patient, discuss w/resident/PA/GEODETIC SURVEY DIRECTOR, agreed w/resident/PA/GEODETIC SURVEY DIRECTOR, reviewed EMR data (avail), reviewed images, amended to note Attending Assessment/Plan: 71-year-old male with past medical history significant for vasculitis and chronic renal failure. He has a suspected case of HSP and is being ruled out for hit. Currently he is status post PPM which was being performed by the cardiothoracic surgeon given his A. fib and a low ejection fraction of 25%. Patient is currently on steroids with a slow improvement in his kidney functions. Cardiology and nephrology on board. Was seen and examined on the bedside and does not complain of any active issues or complaints. Patient remained hemodynamically stable with his current dose of metoprolol. The plan is to begin Coumadin 4 mg daily with an INR: Off of 2-2.5. Patient is currently being awaited to be transferred to the telemetry floor we will continue to monitor and follow the patient.
--- NOTE | 2016-09-10 09:43 | PN- Cardiology ---
Subjective Subjective: * No complaints of chest discomfort, shortness or breath, lightheadedness or palitations. * 100% paced rhythm with underlying atrial fibrillations/p permanent pacemaker placement yesterday. * BUN 107, creatinine 3.3 and potassium 5.4 * WBC improved to 14.9. H/H and platelets are stable Objective Vital Signs and I&Os Vital Signs Date Time Temp Pulse Resp B/P Pulse O2 O2 Flow FiO2 Ox Delivery Rate 09/10 0600 97.0 90 18 148/90 96 Room Air 09/09 2200 97.8 88 16 148/72 99 Room Air 09/09 2013 98.0 88 16 148/90 09/09 1901 98 Room Air Room Air 09/09 1800 97.0 90 16 150/90 98 Room Air 09/09 1315 96.1 87 18 158/90 100 Nasal 2.0L Cannula Intake & Output 09/10 1600 09/10 0800 09/10 0000 09/09 1600 09/09 0800 09/09 0000 Intake Total 100 250 75 550 Output Total 1120 131 515 9270 1040 Balance -1020 -190 -625 -1180 -490 Intake, IV 50 100 Intake, Oral 100 200 75 450 Number 1 Bowel Movements Output, Urine 1120 922 278 1089 1040 Patient 227 lb 235 lb Weight Physical Exam: General: WD/ WN male in NAD; alert and oriented x 3 Neck: no JVD Chest: dialysis line noted, pacemaker site is clean, dry and intact Heart: RRR with rare ectopy Lungs: clear bilaterally Abdomen: soft, distended, tympanic, +ve bowel sounds Extremities: no edema, venous stasis changes bilaterally Assessment/Plan Assessment/Plan * This patient is stable following permanent pacemaker placement. He is 100% ventricular paced with underlying atrial fibrillation. He remains hemodynamically stable. Continue current dose of Metoprolol for rate control and for his low EF. There is no evidence of decompensated congestive heart failure. * Begin coumadin 4mg daily unless additional surgical prodedures are anticipated. Our goal INR is 2-2.5. * No ACEI at this point in time due to his elevated creatinine. Follow BUN, creatinine and potassium. Continue telemetry? Yes
--- NOTE | 2016-09-10 11:24 | PN- Nephrology ---
Assessment/Plan Assessment: Good urine output and stable creatinine. Skin pathology pending. Suggestion: No dialysis need today. Doesn't appear to need further diuresis at this point. Continue prednisone for now. Subjective Subjective: Patient complained of being dizzy when sitting but no drop in BP. UO remains excellent. Objective Vital Signs and I&Os Vital Signs Date Time Temp Pulse Resp B/P Pulse O2 O2 Flow FiO2 Ox Delivery Rate 09/10 1116 99 Room Air Room Air 09/10 1016 84 162/90 09/10 0600 97.0 90 18 148/90 96 Room Air 09/09 2200 97.8 88 16 148/72 99 Room Air 09/09 2014 98.0 88 16 148/90 09/09 1901 98 Room Air Room Air 09/09 1800 97.0 90 16 150/90 98 Room Air 09/09 1315 96.1 87 18 158/90 100 Nasal 2.0L Cannula Intake & Output 09/10 1600 09/10 0400 09/09 1600 09/09 0400 09/08 1600 09/08 0400 Intake Total 100 250 75 550 1307.4 280 Output Total 6835 689 9804 1040 1625 300 Balance -1320 -190 -1805 -490 -317.6 -20 Intake, IV 50 100 82.4 160 Intake, Oral 100 200 75 450 1225 120 Number 1 1 Bowel Movements Output, Urine 2221 034 9014 1040 1625 300 Patient 227 lb 235 lb 224 lb Weight Physical Exam: NAD VS: as above Lungs: clear CV: no rub Abd: non-tender Exts: chronic venous stasis changes, trace edema Neuro: A&O Current Medications: Current Medications Sig/Dagoberto Start time Last Medication Dose Route Stop Time Status Admin Acetaminophen 650 MG Q6P PRN 08/23 2345 AC 09/07 PO 2045 Albuterol Sulfate 3 ML Q4P PRN 08/30 1645 AC 09/07 INH 2115 Ampicillin Sodium/ 3,000 MG Q12 09/04 1000 DC 09/09 Sulbactam Sodium IV 1026 Sodium Chloride 100 ML Benzocaine/Menthol 1 SUKH Q4P PRN 08/31 1100 AC PO Benzonatate 100 MG TID PRN 08/25 1115 AC 08/30 PO 1652 Bisacodyl 10 MG ONCE ONE 09/09 1700 DC 09/09 NC 09/09 1701 1838 Bisacodyl 5 MG DAILY 08/27 1358 AC 09/09 PO 1823 Cefazolin Sodium 2 GM IQ8 09/09 2200 DC 09/10 N/A 1 UNIT IV 09/10 0829 0808 Cholecalciferol 1,000 IU DAILY 08/29 1046 AC 09/10 PO 1010 Fentanyl Citrate 100 MCG .STK-MED ONE 09/09 1348 DC IM 09/09 1349 Fluticasone 2 SPRAY DAILY 09/09 1045 AC 09/10 Propionate KATHARINE 1011 Folic Acid 1 MG DAILY 08/24 1000 AC 09/10 PO 1009 Furosemide 40 MG ONCE ONE 09/09 1145 DC 09/09 IV 09/09 1146 1307 Guaifenesin 10 ML Q6P PRN 08/26 1530 AC 09/09 PO 0903 Hydrocortisone/ 1 BEVERLY TIDPRN PRN 09/09 1200 AC Pramoxine NC Melatonin 5 MG AT BEDTIME 09/08 2200 AC 09/09 PO 2207 Metoprolol Succinate 100 MG DAILY 09/09 1730 AC 09/10 PO 1016 Multivitamins 1 TAB DAILY 08/24 1000 AC 09/10 PO 1010 Omeprazole 40 MG DAILY AC 08/29 1045 AC 09/10 PO 0614 Oxycodone/ 1 TAB Q4-6 PRN PRN 09/09 1630 AC Acetaminophen PO Oxycodone/ 2 TAB Q4-6 PRN PRN 09/09 1630 AC Acetaminophen PO Phenol 2 SPRAY Q2P PRN 08/30 0900 AC 09/09 EXT 0903 Polyethylene Glycol 17 GM DAILY 08/27 1358 AC 09/10 PO 1007 Pramoxine HCl 1 BOT TIDPRN PRN 09/09 1045 DC EXT Prednisone 60 MG DAILY 09/01 1000 AC 09/10 PO 1009 Thiamine HCl 100 MG DAILY 08/24 1000 AC 09/10 PO 1010 Results Pertinent Lab Results: Laboratory Tests 09/10 09/09 0545 1115 Chemistry Sodium (137 - 145 mmol/L) 141 Potassium (3.5 - 5.1 mmol/L) 5.4 H Chloride (98 - 107 mmol/L) 104 Carbon Dioxide (22 - 30 mmol/L) 26 Anion Gap (5 - 16) 11 BUN (9 - 20 mg/dL) 107 *H Creatinine (0.7 - 1.2 mg/dL) 3.3 H Estimated GFR (>60 ml/min) 19 L BUN/Creatinine Ratio (7 - 25 %) 32.4 H Phosphorus (2.5 - 4.5 mg/dL) 7.7 H Magnesium (1.6 - 2.3 mg/dL) 2.0 Coagulation PT (9.4 - 12.5 SEC) 18.9 H INR (0.90 - 1.17) 1.81 H Hematology CBC w Diff NO MAN DIFF REQ WBC (4.8 - 10.8 /CUMM) 14.9 H RBC (4.70 - 6.10 /CUMM) 4.13 L Hgb (14.0 - 18.0 G/DL) 11.8 L Hct (42 - 52 %) 36.6 L MCV (80.0 - 94.0 FL) 88.6 MCH (27.0 - 31.0 PG) 28.6 RDW (11.5 - 14.5 %) 15.3 H Plt Count (130 - 400 /CUMM) 132 MPV (7.4 - 10.4 FL) 8.9 Gran % (42.2 - 75.2 %) 96.0 H Lymphocytes % (20.5 - 51.1 %) 1.9 L Monocytes % (1.7 - 9.3 %) 1.7 Eosinophils % (0 - 5 %) 0.4 Basophils % (0.0 - 2.0 %) 0 L Absolute Granulocytes (1.4 - 6.5 /CUMM) 14.4 H Absolute Lymphocytes (1.2 - 3.4 /CUMM) 0.3 L Absolute Monocytes (0.10 - 0.60 /CUMM) 0.2 Absolute Eosinophils (0.0 - 0.7 /CUMM) 0.1 Absolute Basophils (0.0 - 0.2 /CUMM) 0 PUBS MCHC (33.0 - 37.0 G/DL) 32.3 L 09/09 09/08 0358 0610 Chemistry Sodium (137 - 145 mmol/L) 139 138 Potassium (3.5 - 5.1 mmol/L) 5.5 H 4.9 Chloride (98 - 107 mmol/L) 104 104 Carbon Dioxide (22 - 30 mmol/L) 24 25 Anion Gap (5 - 16) 11 9 BUN (9 - 20 mg/dL) 102 *H 98 H Creatinine (0.7 - 1.2 mg/dL) 3.5 H 3.5 H Estimated GFR (>60 ml/min) 17 L 17 L BUN/Creatinine Ratio (7 - 25 %) 28.9 H 28.0 H Phosphorus (2.5 - 4.5 mg/dL) 7.8 H 7.8 H Magnesium (1.6 - 2.3 mg/dL) 2.2 2.3 Coagulation APTT (25 - 37 SEC) 79 H Hematology CBC w Diff NO MAN DIFF REQ NO MAN DIFF REQ WBC (4.8 - 10.8 /CUMM) 24.1 H 25.1 H RBC (4.70 - 6.10 /CUMM) 3.99 L 3.71 L Hgb (14.0 - 18.0 G/DL) 11.5 L 10.8 L Hct (42 - 52 %) 35.3 L 32.6 L MCV (80.0 - 94.0 FL) 88.4 87.8 MCH (27.0 - 31.0 PG) 28.9 29.1 RDW (11.5 - 14.5 %) 15.1 H 15.3 H Plt Count (130 - 400 /CUMM) 140 151 MPV (7.4 - 10.4 FL) 8.8 8.5 Gran % (42.2 - 75.2 %) 92.9 H 86.2 H Lymphocytes % (20.5 - 51.1 %) 2.4 L 2.9 L Monocytes % (1.7 - 9.3 %) 4.7 10.2 H Eosinophils % (0 - 5 %) 0 0 Basophils % (0.0 - 2.0 %) 0 L 0.7 Absolute Granulocytes (1.4 - 6.5 /CUMM) 22.4 H 21.6 H Absolute Lymphocytes (1.2 - 3.4 /CUMM) 0.6 L 0.7 L Absolute Monocytes (0.10 - 0.60 /CUMM) 1.1 H 2.5 H Absolute Eosinophils (0.0 - 0.7 /CUMM) 0 0 Absolute Basophils (0.0 - 0.2 /CUMM) 0 0.2 PUBS MCHC (33.0 - 37.0 G/DL) 32.7 L 33.2 09/08 09/07 09/07 09/07 09/07 0000 2140 1845 1700 1439 Chemistry Troponin I (<0.11 ng/ml) 0.02 Coagulation APTT (25 - 37 SEC) 71 H 73 H 76 H 75 H 09/07 1248 Coagulation APTT (25 - 37 SEC) 72 H
--- NOTE | 2016-09-10 13:00 | NUR ---
TRANSFERED TO ROOM 174-1 VIA RECLINER. ALERT ORIENTED X3. NO COMPLAINTS. ON TELE MONITOR AFIB IN 80'S. SON AT BEDSIDE. SETTLED INTO ROOM. BELONGINGS WITH PATIENT.
[2016-09-10 13:14] VITALS: BP 142/86
--- NOTE | 2016-09-10 13:22 | PN- Infect Dx ---
Subjective Subjective: Afebrile on steroids. He feels well with no complaints Objective Last 24 Hrs of Vital Signs/I&O Vital Signs Date Time Temp Pulse Resp B/P Pulse O2 O2 Flow FiO2 Ox Delivery Rate 09/10 1314 98.7 74 16 142/86 97 Room Air 09/10 1116 99 Room Air Room Air 09/10 1016 84 162/90 09/10 0800 Room Air 09/10 0800 96.5 88 18 140/84 98 Room Air 09/10 0600 97.0 90 18 148/90 96 Room Air 09/09 2200 97.8 88 16 148/72 99 Room Air 09/09 2014 98.0 88 16 148/90 09/09 1901 98 Room Air Room Air 09/09 1800 97.0 90 16 150/90 98 Room Air Intake & Output 09/10 1600 09/10 0800 09/10 0000 Intake Total 360 100 250 Output Total 150 1270 440 Balance 210 -1170 -190 Intake, IV 50 Intake, Oral 360 100 200 Number 1 Bowel Movements Output, Urine 150 1270 440 Patient 227 lb Weight Physical Exam Other Physical Findings: He appears well in no acute distress Chest dressing intact in the left upper chest at the site of the recent pacemaker placement Lungs are clear Heart regular rhythm with no murmur Extremities mild induration with pitting edema of the right thigh compared to the left, with mild tenderness on palpation but with no erythema Results Last 24 Hours of Lab Results: Laboratory Tests 09/10 0545 Chemistry Sodium (137 - 145 mmol/L) 141 Potassium (3.5 - 5.1 mmol/L) 5.4 H Chloride (98 - 107 mmol/L) 104 Carbon Dioxide (22 - 30 mmol/L) 26 Anion Gap (5 - 16) 11 BUN (9 - 20 mg/dL) 107 *H Creatinine (0.7 - 1.2 mg/dL) 3.3 H Estimated GFR (>60 ml/min) 19 L BUN/Creatinine Ratio (7 - 25 %) 32.4 H Phosphorus (2.5 - 4.5 mg/dL) 7.7 H Magnesium (1.6 - 2.3 mg/dL) 2.0 Hematology CBC w Diff NO MAN DIFF REQ WBC (4.8 - 10.8 /CUMM) 14.9 H RBC (4.70 - 6.10 /CUMM) 4.13 L Hgb (14.0 - 18.0 G/DL) 11.8 L Hct (42 - 52 %) 36.6 L MCV (80.0 - 94.0 FL) 88.6 MCH (27.0 - 31.0 PG) 28.6 RDW (11.5 - 14.5 %) 15.3 H Plt Count (130 - 400 /CUMM) 132 MPV (7.4 - 10.4 FL) 8.9 Gran % (42.2 - 75.2 %) 96.0 H Lymphocytes % (20.5 - 51.1 %) 1.9 L Monocytes % (1.7 - 9.3 %) 1.7 Eosinophils % (0 - 5 %) 0.4 Basophils % (0.0 - 2.0 %) 0 L Absolute Granulocytes (1.4 - 6.5 /CUMM) 14.4 H Absolute Lymphocytes (1.2 - 3.4 /CUMM) 0.3 L Absolute Monocytes (0.10 - 0.60 /CUMM) 0.2 Absolute Eosinophils (0.0 - 0.7 /CUMM) 0.1 Absolute Basophils (0.0 - 0.2 /CUMM) 0 PUBS MCHC (33.0 - 37.0 G/DL) 32.3 L Last 24 Hours of Hemal Results: No recent cultures Assessment/Plan Impression: Stable status post pacemaker placement yesterday, with temperatures remaining normal (on steroids) and with white blood cell count markedly decreased despite continuation of steroids for a presumed vasculitis. His right thigh cellulitis appears to have resolved now off antibiotics after 6 days of Unasyn. Suggestion: 1. Follow-up results of recent skin biopsy 2. Follow off antibiotics
[2016-09-10 16:06] VITALS: BP 130/84
[2016-09-11 00:04] VITALS: BP 140/82
[2016-09-11 07:50] VITALS: BP 130/70
--- NOTE | 2016-09-11 08:48 | PN- Housestaff ---
JULIANA BAKER,EDWIGE 09/11/16 0848: Subjective Follow-up For: asystole bradycardia HSP Complaints: constipation, chest pain-3/10 Tele-Events Since Last Visit: Atrial fibrillation with heart rate between 49-90, premature ventricular complex , bundle branch block Subjective: Patient is seen and examined at the bedside. He was complaining of constipation. He was denying of any shortness of breath, pain in the legs, back pain. He was also complaining of chest pain which was 3/10, intermittent in nature, he thinks it is due to reflux and constipation. Review of Systems Constitutional: Reports: malaise, weakness. Cardiovascular: Reports: chest pain, edema, palpitations, peripheral edema. Denies: orthopena. Respiratory: Denies: cough, hemoptysis, orthopnea, short of breath, sputum production. Gastrointestinal: Reports: constipation. Denies: abdominal pain, bloating, diarrhea, distention, bowel incontinence, melena, nausea. Genitourinary: Denies: no symptoms. Musculoskeletal: Denies: no symptoms. Skin: Reports: change in skin color, dryness, erythema, rash. Neurological/Psychological: Denies: no symptoms. Objective Last 24 Hrs of Vital Signs/I&O Vital Signs Date Time Temp Pulse Resp B/P Pulse O2 O2 Flow FiO2 Ox Delivery Rate 09/11 1955 97 Room Air 09/11 1600 97.0 87 20 126/82 96 Room Air 09/11 1412 97 Room Air Room Air 09/11 0951 88 130/70 09/11 0750 97.7 88 20 130/70 98 Room Air 09/11 0004 97.6 95 20 140/82 95 Intake & Output 09/11 1600 09/11 0800 09/11 0000 Intake Total 480 200 480 Output Total 820 800 650 Balance -340 -600 -170 Intake, Oral 480 200 480 Number 1 Bowel Movements Output, Urine 820 800 650 Patient 97.069 kg Weight Physical Exam General Appearance: Alert, Oriented X3, Cooperative, No Acute Distress Skin: there is generalized petechial rash, right lower leg dryness, erythema, scaling, oozing of skin HEENT: Atraumatic, PERRLA, EOMI Cardiovascular: irregular with murmur Lungs: Clear to Auscultation, Normal Air Movement Abdomen: Soft, No Tenderness, distended, bowel sound is positive Neurological: Normal Speech Extremities: bilateral lowerleg edema Current Medications: Current Medications Sig/Dagoberto Start time Last Medication Dose Route Stop Time Status Admin Acetaminophen 650 MG Q6P PRN 08/23 2345 AC 09/07 PO 2045 Albuterol Sulfate 3 ML Q4P PRN 08/30 1645 AC 09/07 INH 2115 Benzocaine/Menthol 1 SUKH Q4P PRN 08/31 1100 AC PO Benzonatate 100 MG TID PRN 08/25 1115 AC 08/30 PO 1652 Bisacodyl 10 MG ONCE ONE 09/11 1200 DC 09/11 IN 09/11 1201 1315 Bisacodyl 5 MG DAILY 08/27 1358 AC 09/11 PO 0951 Cholecalciferol 1,000 IU DAILY 08/29 1046 AC 09/11 PO 0951 Fluticasone 2 SPRAY DAILY 09/09 1045 AC 09/11 Propionate KATHARINE 0949 Folic Acid 1 MG DAILY 08/24 1000 AC 09/11 PO 0951 Guaifenesin 10 ML Q6P PRN 08/26 1530 AC 09/09 PO 0903 Heparin Sodium/ 25,000 UNIT Q24H 09/11 0815 AC 09/11 Dextrose IV 0949 Dextrose/Water 500 ML Hydrocortisone/ 1 BEVERLY TIDPRN PRN 09/09 1200 AC Pramoxine IN Melatonin 5 MG AT BEDTIME 09/08 2200 AC 09/10 PO 2136 Metoprolol Succinate 100 MG DAILY 09/09 1730 AC 09/11 PO 0951 Multivitamins 1 TAB DAILY 08/24 1000 AC 09/11 PO 0951 Omeprazole 40 MG DAILY AC 08/29 1045 AC 09/11 PO 0616 Oxycodone/ 1 TAB Q4-6 PRN PRN 09/09 1630 AC Acetaminophen PO Oxycodone/ 2 TAB Q4-6 PRN PRN 09/09 1630 AC Acetaminophen PO Phenol 2 SPRAY Q2P PRN 08/30 0900 AC 09/09 EXT 0903 Polyethylene Glycol 17 GM DAILY 08/27 1358 AC 09/11 PO 0950 Prednisone 60 MG DAILY 09/01 1000 AC 09/11 PO 0951 Thiamine HCl 100 MG DAILY 08/24 1000 AC 09/11 PO 0951 Last 24 Hrs of Lab/Hemal Results Last 24 Hrs of Labs/Mics: Laboratory Tests 09/11/16 1626: PT Cancelled, INR Cancelled 09/11/16 1620: PT 19.8 H, INR 1.90 H, APTT 84 H 09/11/16 1006: Anion Gap 11, Estimated GFR 21 L, BUN/Creatinine Ratio 35.3 H, Phosphorus 6.4 H, Magnesium 2.0, CBC w Diff NO MAN DIFF REQ, RBC 3.88 L, MCV 88.6, MCH 28.8, RDW 15.6 H, MPV 9.4, Gran % 89.6 H, Lymphocytes % 3.2 L, Monocytes % 7.2, Eosinophils % 0, Basophils % 0 L, Absolute Granulocytes 18.7 H, Absolute Lymphocytes 0.7 L, Absolute Monocytes 1.5 H, Absolute Eosinophils 0, Absolute Basophils 0, PUBS MCHC 32.5 L 09/11/16 0500: Sodium Cancelled, Potassium Cancelled, Chloride Cancelled, Carbon Dioxide Cancelled, Anion Gap Cancelled, BUN Cancelled, Creatinine Cancelled, BUN/ Creatinine Ratio Cancelled, Phosphorus Cancelled, Magnesium Cancelled, CBC w Diff Cancelled, WBC Cancelled, RBC Cancelled, Hgb Cancelled, Hct Cancelled, MCV Cancelled, MCH Cancelled, RDW Cancelled, Plt Count Cancelled, MPV Cancelled, PUBS MCHC Cancelled Assessment/Plan Assessment: 71-year-old man with PMH of atrial fibrillation on Coumadin, CAD status post stents, with varicose veins, hospitalized 3 weeks [facility] after trauma to the right leg requiring 2 units of blood, with persistent swelling, discomfort and discoloration of the right leg since then, self treated persistent leg swelling with Lasix several days prior to admission, admitted on August 23 after presenting to the ED with a diffuse petechial rash that was more localized one week [facility], with no associated fevers or chills. Pt was initially admitted to general medicine. He was transferred to telemetry from general medicine for close cardiac monitoring while aspirin and warfarin were held pending renal biopsy. Skin biopsy on 08/26/[address] 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 He also developed REAGAN ( with BUN/cr up to 124/7.4 , was 27/1.7 on admission) and hyperkalemia (up to 6.3 ). 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 His K and kidney functions has improved with dialysis. After steroids was started, developed leukocytosis with WBC up to 43.3 (normal wbc on admission), afebrile (although on steroids) with no left shift, and did not improve with unasyn for presumable RLE cellulitis. Leukocytosis improving. Renal biopsy was delayed initially due to supratherapeutic INR (pt on warfarin for afib) for which renal did not feel comfortable reversing with FFP. So heparin drip started while warfarin held. There was then a concern that he might have developed heparin induced thrombocytopenia (highest 186, lowest 72), with a high probability pre-test likelihood based on 4T score, so heparin drip was subsequently stopped, and argatroban drip started. Subsequently, heparin induced platelet ab, heparin-pf4 ab od 0.013, and serotonin release assay were found to be negative, ruling out HIT, with platelet trending up nicely to normal range. Pt was transferred to ICU for close nursing monitoring while on argatroban drip. Of note, pt had episode of NSVT on telemetry, for which his metoprolol dose was increased to 100 without subsequent recurrence. However, on 09/07/16 evening, he had 4 episodes of prolonged asystole (up to 2 minutes each time) in a 30 minute timeframe, he is DNR/DNI. No chest compressions done, but he regained consciousness with sternal rubs. EKG showed advanced AV block with HR in the low 30s, and a new RBBB. Metoprolol subsequently held pending pacemaker placement. He was maintained on backup pacemaker while awaiting permanent pacemaker placement. Argatroban was held in anticipation for surgery, and he is to be restarted on heparin drip after the surgery now that HIT has been ruled out. Skin biopsy with immunofluorescence was done on 09/08/16. Renal biopsy is still being considered. Active issues include: # Hx of asystole, advanced av block, new RBBB, pacemaker to be placed # Constipation # Possible Henoch-Schnlein purpura on prednisone and dialysis # HIT ruled out # Leukocytosis, on steroids , with RLE pain, possible cellulitis, on Unasyn # Atrial fibrillation (was on warfarin at home, currently being held) # Episode of NSVT with no reccurent epidose after increasing metoprolol # Hx of CAD (aspirin on hold pending biopsy, await starting statin) # Hx of asystole, advanced av block, new RBBB - Stat echo 09/08/16: Severely reduced left ventricular systolic function with akinesia of the inferior wall. Mild Aortic regurgitation and mild to moderate Mitral regurgitation with mild pulmonary hypertension. EF 20-25% * s/p pacemaker placement with Dr. Coombs 09/09, * Argatroban on hold. * Patient is on IV heparin for possible renal biopsy * Metoprolol 100mg daily. # Henoch-Schnlein purpura - Diffuse petechial rash, first noted one week prior to admission, and persistent ecchymosis, edema and mild discomfort of the right leg - Subsequently developed REAGAN and hyperkalemia with microscopic hematuria, with improvement of creatinine due to dialysis - Cough with hemoptysis (not likely to be pulmonary renal based on chest ct) - Elevated ESR 36, CRP >15, RF 13.9 - Negative hepatitis panel, HIV, MARTIN, ANCA, cryoglobulin. Normal C3 and C4. * Pending renal biopsy by IR pending nephrology decision. * Repeat skin biopsy completed on 09/09. Await formal results * Nephrology on board * Patient is having good urine output. So possibly he will not need dialysis in future * We will regularly monitor urine output * Hematology on board (Dr. High) * on 60mg PO prednisone daily * 20mg IV lasix given on 09/07 for edema. 40mg IV lasix X 1 given on 09/08 and . We stopped the Lasix as advised by keyboard specialist. * Pramoxine for itching * PT # HIT ruled out - Platelet down from highest 186 --> lowest 72, now trending up - Received heparin from 09/01/16 to 09/04/16 - 4T high probability for HIT - Heparin induced platelet ab negative and heparin-pf4 ab od 0.013 (negative). - Serotonin release assay negative * Monitor CBC daily - Platelet count was 104 on 09/11/2016, lower than before # Constipation - Given bowel regimen and suppository * Order more suppository as needed # Hemoptysis with cough - Due to warfarin use? - Sputum with streak of blood * Pulm consult appreciated, Dr. Jensen has signed off * Flonase * Robitussin # Atrial fibrillation ( on coumadin at home) - CHADVASc score is 4 putting him at mod-high risk for stroke, on ArgatrobanCoumadin on hold due to possible renal biopsy * Patient is again on heparin drip after pacemaker implantation, awaiting for a skin biopsy. If negative, and possible renal biopsy. # Hx of CAD/prior myocardial infarction with mild to moderate left ventricular dysfunction by previous noninvasive imaging, now with severe LV dysfunction - Despite the cardiomyopathy he is not a candidate for addition of LISETH-I at this time * Restart aspirin 81 mg when medically cleared * Cardio recommend adding low-dose Lipitor 20 mg by mouth daily when medically cleared # One episode of NSVT on telemetry, chronic LBBB (resolved) * Increased metoprolol to Toprol XL 100 mg daily, # Hx of HTN * Continue antihypertensive medication # Leukocytosis up to 43.3, on steroids # Possible Cellulitis of right thigh secondary to lower extremity ulceration - X-ray of the right tibia/fibula negative. - Doppler of the right lower extremity negative * ID input appreciated * Unasyn 3000 q12 started on 09/04/16 pm. WBC continues to be elevated despite being on abx. Now day #6 of abx. Discontinue unasyn after pacemaker placement. * Wound consult appreciated * Monitor WBC * Xeroform and leg elevation above his heart Diet: NPO pending surgery DVT ppx: argatroban onhold for surgery, to be restarted on heparin drip DNR/DNI In the event of any changes or updates please contact his son Paulo at [phone] or [id number] Sandra who is a hospice nurse at [phone] Consults: cardio, nephro, ID, thoracic surgery (Dr. Coombs pacemaker), gen surgery (Dr. Bonilla, skin biopsy), pulm (signed off), rheum , PT, nutrition Labs: CBC, BEP, mag, phos for low platelet count, arrythmia, reagan on dialysis Problem List: 1. AV block 2. Henoch-Schonlein purpura 3. HIT (heparin-induced thrombocytopenia) 4. HFrEF (heart failure with reduced ejection fraction) 5. Glomerulonephritis 6. Petechial rash 7. Acute kidney injury 8. Atrial fibrillation 9. Bleeding from varicose veins of right lower extremity 10. Hypovolemic shock 11. Symptomatic anemia 12. Thrombosed external hemorrhoid Pain Ratin Pain Location: Chest Pain Goal: Remain pain free Pain Plan: Avoid NSAIDs Tomorrow's Labs & Rationales: CBC, BEP, magnesium, phosphorus, PTT, DVT/Prophylaxis: mechanical, pharmacological Consulting Request: Consulting Specialty: Hematology/Oncology APURVA BAKER,CORONA 09/11/16 1248: Attending MD Review Statement Attending Statement Attending MD Statement: examined this patient, discuss w/resident/PA/FLAT BED KNITTER, agreed w/resident/PA/FLAT BED KNITTER, reviewed EMR data (avail), discussed with nursing, discussed with case mgmt, reviewed images, amended to note Attending Assessment/Plan: 71-year-old male with past medical history significant for vasculitis and chronic renal failure. He has a suspected case of HSP and is currently being ruled out for it by sending a skin biopsy which is still awaited. Patient has been transferred out yesterday evening from the ICU to the general medical floor with no overnight issues. Currently he is status post PPM which was being performed by the cardiothoracic surgeon given his A. fib and a low ejection fraction of 25%. Patient is currently on steroids with a slow improvement in his kidney functions. Cardiology and nephrology on board. Was seen and examined on the bedside and does not complain of any active issues or complaints. Patient remained hemodynamically stable with his current dose of metoprolol. Patient has been switched over IV heparin. Patient remains stable.
--- NOTE | 2016-09-11 12:15 | Transfer of Care Summary ---
Hospital Course Course Hospital Course: Please see previous transfer of cares for his hospital course on and tele. Pt was transferred from telemetry to ICU for frequent blood draws while on argatroban (for atrial fibrillation, subsequently thought to have developed HIT) . While in the ICU, he was maintained on argatroban while we were pending decision on renal biopsy. HIT subsequently ruled out. He had recurrent episodes of prolonged asystole on 09/07/16 PM, with bradycardia (30s) and significant AV block noted on EKG. Pacemaker placed on 09/09/[address] Coombs. Pt transferred back to tele. Heparin drip re-started on 09/11 am. Still awaiting skin biopsy results to decide if we will pursue renal biopsy. Assessment/Plan: 71-year-old man with PMH of atrial fibrillation on Coumadin, CAD status post stents, with varicose veins, hospitalized 3 weeks [facility] after trauma to the right leg requiring 2 units of blood, with persistent swelling, discomfort and discoloration of the right leg since then, self treated persistent leg swelling with Lasix several days prior to admission, admitted on August 23 after presenting to the ED with a diffuse petechial rash that was more localized one week [facility], with no associated fevers or chills. Pt was initially admitted to general medicine. He was transferred to telemetry from general medicine for close cardiac monitoring while aspirin and warfarin were held pending renal biopsy. Skin biopsy on 08/26/[address] 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 He also developed CHARLES ( with BUN/cr up to 124/7.4 , was 27/1.7 on admission) and hyperkalemia (up to 6.3 ). 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 His K and kidney functions has improved with dialysis. After steroids was started, developed leukocytosis with WBC up to 43.3 (normal wbc on admission), afebrile (although on steroids) with no left shift, and did not improve with unasyn for presumable RLE cellulitis. Leukocytosis improving. Renal biopsy was delayed initially due to supratherapeutic INR (pt on warfarin for afib) for which renal did not feel comfortable reversing with FFP. So heparin drip started while warfarin held. There was then a concern that he might have developed heparin induced thrombocytopenia (highest 186, lowest 72), with a high probability pre-test likelihood based on 4T score, so heparin drip was subsequently stopped, and argatroban drip started. Subsequently, heparin induced platelet ab, heparin-pf4 ab od 0.013, and serotonin release assay were found to be negative, ruling out HIT, with platelet trending up nicely to normal range. Pt was transferred to ICU for close nursing monitoring while on argatroban drip. Of note, pt had episode of NSVT on telemetry, for which his metoprolol dose was increased to 100 without subsequent recurrence. However, on 09/07/16 evening, he had 4 episodes of prolonged asystole (up to 2 minutes each time) in a 30 minute timeframe, he is DNR/DNI. No chest compressions done, but he regained consciousness with sternal rubs. EKG showed advanced AV block with HR in the low 30s, and a new RBBB. Metoprolol subsequently held pending pacemaker placement. He was maintained on backup pacemaker while awaiting permanent pacemaker placement. Argatroban was held in anticipation for surgery, and he is to be restarted on heparin drip after the surgery now that HIT has been ruled out. Skin biopsy with immunofluorescence was done on 09/08/16. Renal biopsy is still being considered. Active issues include: # Hx of asystole, advanced av block, new RBBB, pacemaker placed 09/09 # Constipation # Possible Henoch-Schnlein purpura on prednisone and dialysis # HIT ruled out # Leukocytosis, on steroids , with RLE pain, possible cellulitis, off abx # Atrial fibrillation (was on warfarin at home, currently being held) # Episode of NSVT with no reccurent epidose after increasing metoprolol # Hx of CAD (aspirin on hold pending biopsy, await starting statin) # Hx of asystole, advanced av block, new RBBB, pacemaker placed 09/09 - Stat echo 09/08/16: Severely reduced left ventricular systolic function with akinesia of the inferior wall. Mild Aortic regurgitation and mild to moderate Mitral regurgitation with mild pulmonary hypertension. EF 20-25% * Pacemaker placed by Dr. Coombs 09/09 * IV heparin restarted on * Metoprolol restarted after pacemaker placement # Henoch-Schnlein purpura - Diffuse petechial rash, first noted one week prior to admission, and persistent ecchymosis, edema and mild discomfort of the right leg - Subsequently developed CHARLES and hyperkalemia with microscopic hematuria, with improvement of creatinine due to dialysis - Cough with hemoptysis (not likely to be pulmonary renal based on chest ct) - Elevated ESR 36, CRP >15, RF 13.9 - Negative hepatitis panel, HIV, MARTIN, ANCA, cryoglobulin. Normal C3 and C4. * Pending renal biopsy by IR pending nephrology decision. * Repeat skin biopsy completed on 09/09. Await formal results * Nephrology on board * Dialysis started * Hematology on board (Dr. High) * on 60mg PO prednisone daily * 20mg IV lasix given on 09/07 for edema. 40mg IV lasix X 1 given on 09/08 and . * Pramoxine for itching * PT # HIT ruled out - Platelet down from highest 186 --> lowest 72, now trending up - Received heparin from 09/01/16 to 09/04/16 - 4T high probability for HIT - Heparin induced platelet ab negative and heparin-pf4 ab od 0.013 (negative). - Serotonin release assay negative * Monitor CBC daily # Constipation - Given bowel regimen and suppository * Order more suppository as needed # Hemoptysis with cough - Due to warfarin use? - Sputum with streak of blood * Pulm consult appreciated, Dr. Jensen has signed off * Flonase * Robitussin # Atrial fibrillation ( on coumadin at home) - CHADVASc score is 4 putting him at mod-high risk for stroke, on ArgatrobanCoumadin on hold due to possible renal biopsy * Heparin drip discontinued due to possible HIT, which has now been ruled out, and was maintained on argatroban (while we were ruling out HIT). * On heparin drip now # Hx of CAD/prior myocardial infarction with mild to moderate left ventricular dysfunction by previous noninvasive imaging, now with severe LV dysfunction - Despite the cardiomyopathy he is not a candidate for addition of LISETH-I at this time * Restart aspirin 81 mg when medically cleared * Cardio recommend adding low-dose Lipitor 20 mg by mouth daily when medically cleared # One episode of NSVT on telemetry, chronic LBBB (resolved) * Continue Toprol XL 100 mg daily # Hx of HTN * Continue toprol xl # Leukocytosis up to 43.3, on steroids # Possible Cellulitis of right thigh secondary to lower extremity ulceration - X-ray of the right tibia/fibula negative. - Doppler of the right lower extremity negative * ID input appreciated * Unasyn 3000 q12 started on 09/04/16 pm. WBC continues to be elevated despite being on abx. Received 6 days of unasyn. Watch off abx * Wound consult appreciated * Monitor WBC * Xeroform and leg elevation above his heart Diet: Renal dialysis diet DVT ppx: Heparin drip DNR/DNI In the event of any changes or updates please contact his son Paulo at [phone] or [id number] Sandra who is a hospice nurse at [phone] Consults: cardio, nephro, ID, thoracic surgery (Dr. Coombs pacemaker), gen surgery (Dr. Bonilla, skin biopsy), pulm (signed off), rheum , PT, nutrition Labs: CBC, BEP, mag, phos for low platelet count, arrythmia, charles on dialysis Attending MD Review Statement Documenting Attending: HUI BAKER,MANOLO Holt
[2016-09-11 12:23] LABS: ABSOLUTE BASOPHIL COUNT 0 /CUMM (0.0-0.2); ABSOLUTE EOSINOPHIL COUNT 0 /CUMM (0.0-0.7); ABSOLUTE GRANULOCYTE CT 18.7 /CUMM (1.4-6.5); ABSOLUTE LYMPH COUNT 0.7 /CUMM (1.2-3.4); ABSOLUTE MONOCYTE COUNT 1.5 /CUMM (0.10-0.60); BASOPHIL % 0 % (0.0-2.0); EOSINOPHIL % 0 % (0-5); HEMATOCRIT 34.4 % (42-52); MEAN CORPUSCULAR HGB 28.8 PG (27.0-31.0); MEAN CORPUSCULAR HGB CONC 32.5 G/DL (33.0-37.0); MEAN CORPUSCULAR VOLUME 88.6 FL (80.0-94.0); MEAN PLATELET VOLUME 9.4 FL (7.4-10.4); PLATELET COUNT 104 /CUMM (130-400); RBC DISTRIBUTION WIDTH 15.6 % (11.5-14.5); RED BLOOD CELL CT 3.88 /CUMM (4.70-6.10); WHITE BLOOD CELL COUNT 20.8 /CUMM (4.8-10.8)
[2016-09-11 12:47] LABS: GRANULOCYTE % 89.6 % (42.2-75.2)
[2016-09-11 16:00] VITALS: BP 126/82
--- NOTE | 2016-09-11 16:04 | PN- Cardiology ---
Subjective Subjective: * No complaints of chest discomfort, shortness or breath, lightheadedness or palitations. * 100% paced rhythm with underlying atrial fibrillation s/p permanent pacemaker placement * BUN 107, creatinine decreased to 3.0 and potassium 5.0 * WBC increased to 20.8 on steroids. H/H and platelets are stable Objective Vital Signs and I&Os Vital Signs Date Time Temp Pulse Resp B/P Pulse O2 O2 Flow FiO2 Ox Delivery Rate 09/11 1412 97 Room Air Room Air 09/11 0951 88 130/70 09/11 0750 97.7 88 20 130/70 98 Room Air 09/11 0004 97.6 95 20 140/82 95 09/10 1606 97.4 87 20 130/84 96 Room Air Intake & Output 09/11 1600 09/11 0800 09/11 0000 09/10 1600 09/10 0800 09/10 0000 Intake Total 480 200 480 360 100 250 Output Total 820 800 581 439 5994 440 Balance -340 -600 - -190 Intake, IV 50 Intake, Oral 480 200 480 360 100 200 Number 1 1 Bowel Movements Output, Urine 820 800 467 680 6646 440 Patient 214 lb 227 lb Weight Physical Exam: General: WD/ WN male in NAD; alert and oriented x 3 Neck: no JVD Chest: dialysis line noted, pacemaker site is clean, dry and intact Heart: RRR with rare ectopy Lungs: clear bilaterally Abdomen: soft, distended, tympanic, +ve bowel sounds Extremities: 1+ leg edema, venous stasis changes bilaterally Assessment/Plan Assessment/Plan * This patient is stable following permanent pacemaker placement. He is 100% ventricular paced with underlying atrial fibrillation. He remains hemodynamically stable. Continue current dose of Metoprolol for rate control and for his low EF. There is no evidence of decompensated congestive heart failure. * Begin coumadin 4mg daily unless additional surgical prodedures are anticipated. Our goal INR is 2-2.5. If a renal biopsy is anticipated the patient can be anticoagulated with IV heparin. * No ACEI at this point in time due to his elevated creatinine. Follow BUN, creatinine and potassium. Continue telemetry? Yes
[2016-09-11 17:30] LABS: PT 19.8 SEC (9.4-12.5); PTT 84 SEC (25-37)
[2016-09-11 23:00] VITALS: BP 150/80
[2016-09-12 05:00] LABS: ABSOLUTE BASOPHIL COUNT 0 /CUMM (0.0-0.2); ABSOLUTE EOSINOPHIL COUNT 0 /CUMM (0.0-0.7); ABSOLUTE GRANULOCYTE CT 15.5 /CUMM (1.4-6.5); ABSOLUTE LYMPH COUNT 0.7 /CUMM (1.2-3.4); ABSOLUTE MONOCYTE COUNT 1.3 /CUMM (0.10-0.60); BASOPHIL % 0 % (0.0-2.0); EOSINOPHIL % 0.3 % (0-5); GRANULOCYTE % 88.8 % (42.2-75.2); HEMATOCRIT 34.1 % (42-52); MEAN CORPUSCULAR HGB 28.8 PG (27.0-31.0); MEAN CORPUSCULAR HGB CONC 32.6 G/DL (33.0-37.0); MEAN CORPUSCULAR VOLUME 88.5 FL (80.0-94.0); MEAN PLATELET VOLUME 9.3 FL (7.4-10.4); PLATELET COUNT 100 /CUMM (130-400); RBC DISTRIBUTION WIDTH 15.4 % (11.5-14.5); RED BLOOD CELL CT 3.86 /CUMM (4.70-6.10); WHITE BLOOD CELL COUNT 17.5 /CUMM (4.8-10.8)
[2016-09-12 05:17] LABS: PTT > 120 SEC (25-37)
[2016-09-12 07:00] VITALS: BP 112/60; BP 146/72
--- NOTE | 2016-09-12 07:13 | PN- Housestaff ---
JAMIN BAKER,JOSESITO 09/12/16 0712: Subjective Follow-up For: CHARLES Petechial rash Asystole s/p pacemaker placement Afib Tele-Events Since Last Visit: Afib with HR 75-83, QRS 0.14 with occassional BBB and PVCs Subjective: Patient is seen and examined at bedside. He reports feeling slighty better today. Rash and pain in the legs improving but itchiness persists. Offers no new complaints. Eating well without constipation or stool changes. Denies any f/c, headache, dyspnea, chest pain, palpitations, n/v/c/d, dizziness/lightheadedness. Review of Systems Constitutional: Reports: see HPI. Objective Last 24 Hrs of Vital Signs/I&O Vital Signs Date Time Temp Pulse Resp B/P Pulse O2 O2 Flow FiO2 Ox Delivery Rate 09/12 0700 97.9 74 22 146/72 96 Room Air 09/11 2300 97.7 67 22 150/80 94 Room Air 09/11 1955 97 Room Air 09/11 1600 97.0 87 20 126/82 96 Room Air 09/11 1412 97 Room Air Room Air 09/11 0951 88 130/70 Intake & Output 09/12 1600 09/12 0800 09/12 0000 Intake Total 302 448 Output Total 950 975 Balance -648 -527 Intake, IV 182 208 Intake, Oral 120 240 Number 0 0 Bowel Movements Output, Urine 950 975 Patient 99.79 kg Weight Physical Exam General Appearance: Alert, Oriented X3, Cooperative, No Acute Distress Other Physical Findings: Skin: purpuric lesions on both lower extremities dry skin HEENT: Atraumatic Cardiovascular: irregular rate Lungs: Clear to Auscultation, Normal Air Movement Abdomen: Normal Bowel Sounds, Soft, No Tenderness Neurological: Normal Speech Extremities: 2+pitting edema Current Medications: Current Medications Sig/Dagoberto Start time Last Medication Dose Route Stop Time Status Admin Acetaminophen 650 MG Q6P PRN 08/23 2345 AC 09/07 PO 2045 Albuterol Sulfate 3 ML Q4P PRN 08/30 1645 AC 09/07 INH 2115 Benzocaine/Menthol 1 SUKH Q4P PRN 08/31 1100 AC PO Benzonatate 100 MG TID PRN 08/25 1115 AC 08/30 PO 1652 Bisacodyl 10 MG ONCE ONE 09/11 1200 DC 09/11 MT 09/11 1201 1315 Bisacodyl 5 MG DAILY 08/27 1358 AC 09/11 PO 0951 Cholecalciferol 1,000 IU DAILY 08/29 1046 AC 09/11 PO 0951 Fluticasone 2 SPRAY DAILY 09/09 1045 AC 09/11 Propionate KATHARINE 0949 Folic Acid 1 MG DAILY 08/24 1000 AC 09/11 PO 0951 Guaifenesin 10 ML Q6P PRN 08/26 1530 AC 09/09 PO 0903 Heparin Sodium/ 25,000 UNIT Q24H 09/11 0815 AC 09/11 Dextrose IV 0949 Dextrose/Water 500 ML Hydrocortisone/ 1 BEVERLY TIDPRN PRN 09/09 1200 AC Pramoxine MT Melatonin 5 MG AT BEDTIME 09/08 2200 AC 09/11 PO 2156 Metoprolol Succinate 100 MG DAILY 09/09 1730 AC 09/11 PO 0951 Multivitamins 1 TAB DAILY 08/24 1000 AC 09/11 PO 0951 Omeprazole 40 MG DAILY AC 08/29 1045 AC 09/11 PO 0616 Oxycodone/ 1 TAB Q4-6 PRN PRN 09/09 1630 AC Acetaminophen PO Oxycodone/ 2 TAB Q4-6 PRN PRN 09/09 1630 AC Acetaminophen PO Phenol 2 SPRAY Q2P PRN 08/30 0900 AC 09/09 EXT 0903 Polyethylene Glycol 17 GM DAILY 08/27 1358 AC 09/11 PO 0950 Prednisone 60 MG DAILY 09/01 1000 AC 09/11 PO 0951 Sodium Polystyrene 120 ML ONCE ONE 09/12 0800 DC Sulfonate PO 09/12 0801 Thiamine HCl 100 MG DAILY 08/24 1000 AC 09/11 PO 0951 Last 24 Hrs of Lab/Hemal Results Last 24 Hrs of Labs/Mics: Laboratory Tests 09/12/16 0430: Anion Gap 6, Estimated GFR 24 L, BUN/Creatinine Ratio 36.2 H, Phosphorus 6.0 H, Magnesium 2.0, APTT > 120 *H, CBC w Diff MAN DIFF ORDERED, RBC 3.86 L, MCV 88.5, MCH 28.8, RDW 15.4 H, MPV 9.3, Gran % 88.8 H, Lymphocytes % 3.8 L, Monocytes % 7.1, Eosinophils % 0.3, Basophils % 0 L, Absolute Granulocytes 15.5 H, Segmented Neutrophils 95 H, Absolute Lymphocytes 0.7 L, Lymphocytes 2 L, Monocytes 3, Absolute Monocytes 1.3 H, Absolute Eosinophils 0, Absolute Basophils 0, Platelet Estimate DECREASED, Poikilocytosis 1+, Ovalocytes 2+, PUBS MCHC 32.6 L 09/11/16 1626: PT Cancelled, INR Cancelled 09/11/16 1620: PT 19.8 H, INR 1.90 H, APTT 84 H 09/11/16 1006: Anion Gap 11, Estimated GFR 21 L, BUN/Creatinine Ratio 35.3 H, Phosphorus 6.4 H, Magnesium 2.0, CBC w Diff NO MAN DIFF REQ, RBC 3.88 L, MCV 88.6, MCH 28.8, RDW 15.6 H, MPV 9.4, Gran % 89.6 H, Lymphocytes % 3.2 L, Monocytes % 7.2, Eosinophils % 0, Basophils % 0 L, Absolute Granulocytes 18.7 H, Absolute Lymphocytes 0.7 L, Absolute Monocytes 1.5 H, Absolute Eosinophils 0, Absolute Basophils 0, PUBS MCHC 32.5 L Assessment/Plan Assessment: 71-year-old man with PMH of atrial fibrillation on Coumadin, CAD status post stents, with varicose veins, 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 # Diffuse petechial rash Most likely ddx at this point is Henoch-Schnlein purpura which needs to be confirmed on renal biopsy. Patient has petechial rash in all extremities, first noted one week prior to admission, with persistent ecchymosis, edema and mild discomfort of the right leg. Subsequently developed CHARLES and hyperkalemia with microscopic hematuria. Also associated with cough with hemoptysis (not likely to be pulmonary based on chest ct). Elevated ESR 36, CRP >15, RF 13.9. Negative hepatitis panel, HIV, MARTIN, ANCA, cryoglobulin. Normal C3 and C4. * Pending renal biopsy by IR upon approval by nephrology * Hold anticoagulation for now. * Follow repeat skin biopsy with immunofluroescence (09/09) * Cont to appreciate nephro/heme recs * Monitor I/Os * Cont prednisone 60mg PO daily * Pramoxine for itching * Cont PT # Hx of asystole with advanced av block & new RBBB - Stat echo 09/08/16: Severely reduced left ventricular systolic function with akinesia of the inferior wall. Mild Aortic regurgitation and mild to moderate Mitral regurgitation with mild pulmonary hypertension. EF 20-25% * s/p pacemaker placement by Dr. Coombs (09/09) * Hold heparin drip in the setting of hematoma in the pacemaker site * Cont metoprolol 100mg PO daily. # Constipation * Cont bowel regimen and suppository as needed # Atrial fibrillation ( on coumadin at home) - CHADVASc score is 4 putting him at mod-high risk for stroke, on ArgatrobanCoumadin on hold due to possible renal biopsy * Holding heparin drip after pacemaker implantation, awaiting for a skin biopsy. If negative, and possible renal biopsy. # Hx of CAD/prior myocardial infarction with mild to moderate left ventricular dysfunction by previous noninvasive imaging, now with severe LV dysfunction - Despite the cardiomyopathy he is not a candidate for addition of LISETH-I at this time * Restart aspirin 81 mg when medically cleared * Cardio recommend adding low-dose Lipitor 20 mg by mouth daily when medically cleared # One episode of NSVT on telemetry, chronic LBBB (resolved) * Cont Toprol XL 100 mg daily, # Hx of HTN * Continue antihypertensive medication # Possible Cellulitis of right thigh secondary to lower extremity ulceration - X-ray of the right tibia/fibula negative. - Doppler of the right lower extremity negative * ID input appreciated * Cont to monitor off antibiotics * Wound consult appreciated * Monitor WBC * Xeroform and leg elevation above his heart Diet: renal dialysis diet DVT ppx: supratherapeutic INR DNR/DNI In the event of any changes or updates please contact his son Paulo at [phone] or [id number] Sandra who is a hospice nurse at [phone] Problem List: 1. Thrombosed external hemorrhoid 2. Symptomatic anemia 3. Hypovolemic shock 4. Bleeding from varicose veins of right lower extremity 5. Atrial fibrillation 6. Acute kidney injury 7. Petechial rash 8. Glomerulonephritis 9. 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 AV block Pain Ratin Pain Location: RLE Pain Goal: Pain 4 or less Pain Plan: mild pathway Tomorrow's Labs & Rationales: BEP Mg Phos for arrythmia CBC for low platelet Consulting Request: Consulting Specialty: Hematology/Oncology OMAIRA FUNES 09/12/16 1057: Attending MD Review Statement Attending Statement Attending MD Statement: examined this patient, discuss w/resident/PA/ISOTOPE TECHNOLOGIST, agreed w/resident/PA/ISOTOPE TECHNOLOGIST, discussed with family, reviewed EMR data (avail), discussed with nursing, discussed with case mgmt, reviewed images Attending Assessment/Plan: 71 o/m with multiple medical problems as documented above is awaiting renal biopsy , cardiology following , tolerating b freddy, low EF not candidate of liseth inhibitor 2/2 acute kidney injury needing dialysis. Patient found to have hematoama at pacemaker site. Cardiology recommend to stop heparin drip for next 48 hrs and monitor hematoma. In case it worsens they will evacuate pocket. Patient explained risks/benefits of anticoagualiton in this scenario and patient agrees to plan. Monitor patient closely, d/wed nurse/resident and cardiology. Attending MD Statement: examined this patient, discuss w/resident/PA/ISOTOPE TECHNOLOGIST, agreed w/resident/PA/ISOTOPE TECHNOLOGIST, discussed with family, reviewed EMR data (avail), discussed with nursing, discussed with case mgmt, reviewed images Attending Assessment/Plan: 71 o/m with multiple medical problems as documented above is awaiting renal biopsy , cardiology following , tolerating b freddy, low EF not candidate of liseth inhibitor 2/2 acute kidney injury needing dialysis. Patient found to have hematoama at pacemaker site. Cardiology recommend to stop heparin drip for next 48 hrs and monitor hematoma. In case it worsens they will evacuate pocket. Patient explained risks/benefits of anticoagualiton in this scenario and patient agrees to plan. Monitor patient closely, d/wed nurse/resident and cardiology.
--- NOTE | 2016-09-12 09:50 | PN- Thoracic Surgery ---
Surgical Brief Attending Note Brief Attending Note: Small hematoma that pacemaker pocket site while on heparin. No drainage. I spoke with Fransico Stanley MD and I would favor holding anticoagulation for the next 48 hours. He will make arrangements.
--- NOTE | 2016-09-12 10:43 | PN- Cardiology ---
Subjective Subjective: Patient is doing well today. Denies any shortness of breath or chest pain. Lower extremity pain is reasonably well-controlled at this time. Still with pruritus. Objective Vital Signs and I&Os Vital Signs Date Time Temp Pulse Resp B/P Pulse O2 O2 Flow FiO2 Ox Delivery Rate 09/12 0700 97.9 74 22 146/72 96 Room Air 09/11 2300 97.7 67 22 150/80 94 Room Air 09/11 1955 97 Room Air 09/11 1600 97.0 87 20 126/82 96 Room Air 09/11 1412 97 Room Air Room Air Intake & Output 09/12 1600 09/12 0800 09/12 0000 09/11 1600 09/11 0800 09/11 0000 Intake Total 302 448 480 200 480 Output Total 950 975 820 800 650 Balance -648 -527 -340 -600 -170 Intake, IV 182 208 Intake, Oral 120 240 480 200 480 Number 0 0 1 Bowel Movements Output, Urine 950 975 820 800 650 Patient 220 lb 214 lb Weight Physical Exam: General: no apparent distress. Alert. Laying flat. Eyes: No obvious scleral icterus. HEENT: No jugular venous distention, some lesions noted on his upper palate Cardiovascular: Normal intensity S1/S2. Irregular. Left-sided pacemaker with small hematoma Respiratory: no rales or ronchi Abdomen: no guarding or rebound tenderness. Musculoskeletal: No clubbing or cyanosis noted, LE edema bilaterally Skin: Rash noted, warm Neurologic: No gross focal deficits noted. Current Medications: Current Medications Sig/Dagoberto Start time Last Medication Dose Route Stop Time Status Admin Acetaminophen 650 MG Q6P PRN 08/23 2345 AC 09/07 PO 2045 Albuterol Sulfate 3 ML Q4P PRN 08/30 1645 AC 09/07 INH 2115 Benzocaine/Menthol 1 SUKH Q4P PRN 08/31 1100 AC PO Benzonatate 100 MG TID PRN 08/25 1115 AC 08/30 PO 1652 Bisacodyl 10 MG ONCE ONE 09/11 1200 DC 09/11 MS 09/11 1201 1315 Bisacodyl 5 MG DAILY 08/27 1358 AC 09/11 PO 0951 Cholecalciferol 1,000 IU DAILY 08/29 1046 AC 09/12 PO 1028 Fluticasone 2 SPRAY DAILY 09/09 1045 AC 09/12 Propionate KATHARINE 1028 Folic Acid 1 MG DAILY 08/24 1000 AC 09/12 PO 1028 Guaifenesin 10 ML Q6P PRN 08/26 1530 AC 09/09 PO 0903 Heparin Sodium/ 25,000 UNIT Q24H 09/11 0815 DC 09/11 Dextrose IV 0949 Dextrose/Water 500 ML Hydrocortisone/ 1 BEVERLY TIDPRN PRN 09/09 1200 AC Pramoxine MS Melatonin 5 MG AT BEDTIME 09/08 2200 AC 09/11 PO 2156 Metoprolol Succinate 100 MG DAILY 09/09 1730 AC 09/12 PO 1028 Multivitamins 1 TAB DAILY 08/24 1000 AC 09/12 PO 1028 Omeprazole 40 MG DAILY AC 08/29 1045 AC 09/12 PO 1028 Oxycodone/ 1 TAB Q4-6 PRN PRN 09/09 1630 AC Acetaminophen PO Oxycodone/ 2 TAB Q4-6 PRN PRN 09/09 1630 AC Acetaminophen PO Phenol 2 SPRAY Q2P PRN 08/30 0900 AC 09/09 EXT 0903 Polyethylene Glycol 17 GM DAILY 08/27 1358 AC 09/11 PO 0950 Prednisone 60 MG DAILY 09/01 1000 AC 09/12 PO 1028 Sodium Polystyrene 120 ML ONCE ONE 09/12 0800 DC Sulfonate PO 09/12 0801 Thiamine HCl 100 MG DAILY 08/24 1000 AC 09/12 PO 1028 Results Last 48 Hrs of Labs/Mics: Laboratory Tests 09/12/16 0914: Magnesium Cancelled, CBC w Diff Cancelled, WBC Cancelled, RBC Cancelled, Hgb Cancelled, Hct Cancelled, MCV Cancelled, MCH Cancelled, RDW Cancelled, Plt Count Cancelled, MPV Cancelled, PUBS MCHC Cancelled 09/12/16 0430: Anion Gap 6, Estimated GFR 24 L, BUN/Creatinine Ratio 36.2 H, Phosphorus 6.0 H, Magnesium 2.0, APTT > 120 *H, CBC w Diff MAN DIFF ORDERED, RBC 3.86 L, MCV 88.5, MCH 28.8, RDW 15.4 H, MPV 9.3, Gran % 88.8 H, Lymphocytes % 3.8 L, Monocytes % 7.1, Eosinophils % 0.3, Basophils % 0 L, Absolute Granulocytes 15.5 H, Segmented Neutrophils 95 H, Absolute Lymphocytes 0.7 L, Lymphocytes 2 L, Monocytes 3, Absolute Monocytes 1.3 H, Absolute Eosinophils 0, Absolute Basophils 0, Platelet Estimate DECREASED, Poikilocytosis 1+, Ovalocytes 2+, PUBS MCHC 32.6 L 09/11/16 1626: PT Cancelled, INR Cancelled 09/11/16 1620: PT 19.8 H, INR 1.90 H, APTT 84 H 09/11/16 1006: Anion Gap 11, Estimated GFR 21 L, BUN/Creatinine Ratio 35.3 H, Phosphorus 6.4 H, Magnesium 2.0, CBC w Diff NO MAN DIFF REQ, RBC 3.88 L, MCV 88.6, MCH 28.8, RDW 15.6 H, MPV 9.4, Gran % 89.6 H, Lymphocytes % 3.2 L, Monocytes % 7.2, Eosinophils % 0, Basophils % 0 L, Absolute Granulocytes 18.7 H, Absolute Lymphocytes 0.7 L, Absolute Monocytes 1.5 H, Absolute Eosinophils 0, Absolute Basophils 0, PUBS MCHC 32.5 L 09/11/16 0500: Sodium Cancelled, Potassium Cancelled, Chloride Cancelled, Carbon Dioxide Cancelled, Anion Gap Cancelled, BUN Cancelled, Creatinine Cancelled, BUN/ Creatinine Ratio Cancelled, Phosphorus Cancelled, Magnesium Cancelled, CBC w Diff Cancelled, WBC Cancelled, RBC Cancelled, Hgb Cancelled, Hct Cancelled, MCV Cancelled, MCH Cancelled, RDW Cancelled, Plt Count Cancelled, MPV Cancelled, PUBS MCHC Cancelled Recent Imaging Studies: Post PPM CXR IMPRESSION: No pneumothorax status post left-sided pacer placement. Telemetry tracings were personally reviewed show atrial fibrillation with occasional ventricular pacing Assessment/Plan Assessment/Plan 1. 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 Persistent atrial fibrillation on anticoagulation with Coumadin on hold 3. History of coronary artery disease/prior myocardial infarction with mild to moderate left ventricular dysfunction by previous noninvasive imaging, now with severe LV dysfunction 4. NSVT on telemetry 5. Small bilateral pleural effusions 6. Chronic left bundle branch block 7. Hx HTN 8. Venous insufficiency 9. 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 Prolonged pauses, s/p MRI compatible single lead permanent pacemaker 09/09/16 Patient underwent MRI compatible single lead permanent pacemaker 09/09/16. Doing well today but a small left sided hematoma is noted. INR 1.9 on 09/11 and patient remains on intravenous heparin with last PTT > 120. Would hold the heparin drip and if any evidence of worsening hematoma the patient may need a further reversal of his INR (he did receive FFP on 08/30). Continue on the Toprol-XL daily as the patient is now status post pacemaker. Addition of LISETH inhibitor therapy is not currently appropriate. If the patient continues to have a low ejection fraction in the future despite medical optimization he may be a candidate for upgrade to biventricular AICD. Jonh Stanley MD [facility] Continue telemetry? Yes
[2016-09-12 11:21] LABS: PT 19.7 SEC (9.4-12.5)
--- NOTE | 2016-09-12 11:30 | PN- Nephrology ---
Assessment/Plan Assessment: 1. 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 HS purpura ? hypersensitivity vasculitis w acute GN; improving w steroids & no dialysis need again today. Hi risk for renal bx w coagulopathy (persistent INR elevation & hi PTT on heparin) & thrombocytopenia & randee defer for now Suggestion: 1. recheck renal function in AM --> if Cr stable or improved --> remove HD cath Subjective Subjective: No SOB or CP No uremic sx Nonoliguric PTT & INR both hi --> heparin on hold Objective Vital Signs and I&Os Vital Signs Date Time Temp Pulse Resp B/P Pulse O2 O2 Flow FiO2 Ox Delivery Rate 09/12 1028 154/60 09/12 0700 97.9 74 22 146/72 96 Room Air 09/11 2300 97.7 67 22 150/80 94 Room Air 09/11 1955 97 Room Air 09/11 1600 97.0 87 20 126/82 96 Room Air 09/11 1412 97 Room Air Room Air Intake & Output 09/12 1600 09/12 0400 09/11 1600 09/11 0400 09/10 1600 09/10 0400 Intake Total 302 448 680 480 460 250 Output Total 526 424 2475 650 1720 440 Balance -648 -527 -940 -170 -1260 -190 Intake, IV 182 208 50 Intake, Oral 120 240 680 480 460 200 Number 0 0 1 1 Bowel Movements Output, Urine 030 195 9296 650 1720 440 Patient 220 lb 214 lb 227 lb Weight Physical Exam General Appearance: well developed/nourished, no apparent distress Head: atraumatic, normal appearance Ears, Nose, Throat: normal ENT inspection Neck: normal inspection, supple, Pacer upper L chest below clavicle, R IJ HD cath tunneled --> subclavian location Respiratory: normal breath sounds, quiet respiration, lungs clear Cardiovascular: regular rate/rhythm, no rub Abdomen: soft, non-tender Extremities: swelling Neurologic/Psychiatric: awake, alert, oriented x 3 Skin: rash (lwer extremitiies) Current Medications: Current Medications Sig/Dagoberto Start time Last Medication Dose Route Stop Time Status Admin Acetaminophen 650 MG Q6P PRN 08/23 2345 AC 09/07 PO 204 Albuterol Sulfate 3 ML Q4P PRN 08/30 1645 AC 03/15 INH 2115 Benzocaine/Menthol 1 SUKH Q4P PRN 08/31 1100 AC PO Benzonatate 100 MG TID PRN 08/25 1115 AC 08/30 PO 1652 Bisacodyl 10 MG ONCE ONE 09/11 1200 DC 09/11 IL 09/11 1201 1315 Bisacodyl 5 MG DAILY 08/27 1358 AC 09/11 PO 0951 Cholecalciferol 1,000 IU DAILY 08/29 1046 AC 09/12 PO 1028 Fluticasone 2 SPRAY DAILY 09/09 1045 AC 09/12 Propionate KATHARINE 1028 Folic Acid 1 MG DAILY 08/24 1000 AC 09/12 PO 1028 Guaifenesin 10 ML Q6P PRN 08/26 1530 AC 09/09 PO 0903 Heparin Sodium/ 25,000 UNIT Q24H 09/11 0815 DC 09/11 Dextrose IV 0949 Dextrose/Water 500 ML Hydrocortisone/ 1 BEVERLY TIDPRN PRN 09/09 1200 AC Pramoxine IL Melatonin 5 MG AT BEDTIME 09/08 2200 AC 09/11 PO 2156 Metoprolol Succinate 100 MG DAILY 09/09 1730 AC 09/12 PO 1028 Multivitamins 1 TAB DAILY 08/24 1000 AC 09/12 PO 1028 Omeprazole 40 MG DAILY AC 08/29 1045 AC 09/12 PO 1028 Oxycodone/ 1 TAB Q4-6 PRN PRN 09/09 1630 AC Acetaminophen PO Oxycodone/ 2 TAB Q4-6 PRN PRN 09/09 1630 AC Acetaminophen PO Phenol 2 SPRAY Q2P PRN 08/30 0900 AC 09/09 EXT 0903 Polyethylene Glycol 17 GM DAILY 08/27 1358 AC 09/11 PO 0950 Prednisone 60 MG DAILY 09/01 1000 AC 09/12 PO 1028 Sodium Polystyrene 120 ML ONCE ONE 09/12 0800 DC Sulfonate PO 09/12 0801 Thiamine HCl 100 MG DAILY 08/24 1000 AC 09/12 PO 1028 Results Pertinent Lab Results: Laboratory Tests 09/12 09/12 0914 0430 Chemistry Sodium (137 - 145 mmol/L) 142 Potassium (3.5 - 5.1 mmol/L) 5.6 H Chloride (98 - 107 mmol/L) 107 Carbon Dioxide (22 - 30 mmol/L) 30 Anion Gap (5 - 16) 6 BUN (9 - 20 mg/dL) 94 H Creatinine (0.7 - 1.2 mg/dL) 2.6 H Estimated GFR (>60 ml/min) 24 L BUN/Creatinine Ratio (7 - 25 %) 36.2 H Phosphorus (2.5 - 4.5 mg/dL) 6.0 H Magnesium (1.6 - 2.3 mg/dL) Cancelled 2.0 Coagulation PT (9.4 - 12.5 SEC) 19.7 H INR (0.90 - 1.17) 1.89 H APTT (25 - 37 SEC) > 120 *H Hematology CBC w Diff Cancelled MAN DIFF ORDERED WBC (4.8 - 10.8 /CUMM) Cancelled 17.5 H RBC (4.70 - 6.10 /CUMM) Cancelled 3.86 L Hgb (14.0 - 18.0 G/DL) Cancelled 11.1 L Hct (42 - 52 %) Cancelled 34.1 L MCV (80.0 - 94.0 FL) Cancelled 88.5 MCH (27.0 - 31.0 PG) Cancelled 28.8 RDW (11.5 - 14.5 %) Cancelled 15.4 H Plt Count (130 - 400 /CUMM) Cancelled 100 L MPV (7.4 - 10.4 FL) Cancelled 9.3 Gran % (42.2 - 75.2 %) 88.8 H Lymphocytes % (20.5 - 51.1 %) 3.8 L Monocytes % (1.7 - 9.3 %) 7.1 Eosinophils % (0 - 5 %) 0.3 Basophils % (0.0 - 2.0 %) 0 L Absolute Granulocytes (1.4 - 6.5 /CUMM) 15.5 H Segmented Neutrophils (42.2 - 75.2 %) 95 H Absolute Lymphocytes (1.2 - 3.4 /CUMM) 0.7 L Lymphocytes (20.5 - 51.1 %) 2 L Monocytes (1.7 - 9.3 %) 3 Absolute Monocytes (0.10 - 0.60 /CUMM) 1.3 H Absolute Eosinophils (0.0 - 0.7 /CUMM) 0 Absolute Basophils (0.0 - 0.2 /CUMM) 0 Platelet Estimate (ADEQUATE) DECREASED Poikilocytosis 1+ Ovalocytes 2+ PUBS MCHC (33.0 - 37.0 G/DL) Cancelled 32.6 L 09/11 09/11 09/11 1626 1620 1006 Chemistry Sodium (137 - 145 mmol/L) 141 Potassium (3.5 - 5.1 mmol/L) 5.0 Chloride (98 - 107 mmol/L) 103 Carbon Dioxide (22 - 30 mmol/L) 26 Anion Gap (5 - 16) 11 BUN (9 - 20 mg/dL) 106 *H Creatinine (0.7 - 1.2 mg/dL) 3.0 H Estimated GFR (>60 ml/min) 21 L BUN/Creatinine Ratio (7 - 25 %) 35.3 H Phosphorus (2.5 - 4.5 mg/dL) 6.4 H Magnesium (1.6 - 2.3 mg/dL) 2.0 Coagulation PT (9.4 - 12.5 SEC) Cancelled 19.8 H INR (0.90 - 1.17) Cancelled 1.90 H APTT (25 - 37 SEC) 84 H Hematology CBC w Diff NO MAN DIFF REQ WBC (4.8 - 10.8 /CUMM) 20.8 H RBC (4.70 - 6.10 /CUMM) 3.88 L Hgb (14.0 - 18.0 G/DL) 11.2 L Hct (42 - 52 %) 34.4 L MCV (80.0 - 94.0 FL) 88.6 MCH (27.0 - 31.0 PG) 28.8 RDW (11.5 - 14.5 %) 15.6 H Plt Count (130 - 400 /CUMM) 104 L MPV (7.4 - 10.4 FL) 9.4 Gran % (42.2 - 75.2 %) 89.6 H Lymphocytes % (20.5 - 51.1 %) 3.2 L Monocytes % (1.7 - 9.3 %) 7.2 Eosinophils % (0 - 5 %) 0 Basophils % (0.0 - 2.0 %) 0 L Absolute Granulocytes (1.4 - 6.5 /CUMM) 18.7 H Absolute Lymphocytes (1.2 - 3.4 /CUMM) 0.7 L Absolute Monocytes (0.10 - 0.60 /CUMM) 1.5 H Absolute Eosinophils (0.0 - 0.7 /CUMM) 0 Absolute Basophils (0.0 - 0.2 /CUMM) 0 PUBS MCHC (33.0 - 37.0 G/DL) 32.5 L 09/11 09/10 0500 0545 Chemistry Sodium (137 - 145 mmol/L) Cancelled 141 Potassium (3.5 - 5.1 mmol/L) Cancelled 5.4 H Chloride (98 - 107 mmol/L) Cancelled 104 Carbon Dioxide (22 - 30 mmol/L) Cancelled 26 Anion Gap (5 - 16) Cancelled 11 BUN (9 - 20 mg/dL) Cancelled 107 *H Creatinine (0.7 - 1.2 mg/dL) Cancelled 3.3 H Estimated GFR (>60 ml/min) 19 L BUN/Creatinine Ratio (7 - 25 %) Cancelled 32.4 H Phosphorus (2.5 - 4.5 mg/dL) Cancelled 7.7 H Magnesium (1.6 - 2.3 mg/dL) Cancelled 2.0 Hematology CBC w Diff Cancelled NO MAN DIFF REQ WBC (4.8 - 10.8 /CUMM) Cancelled 14.9 H RBC (4.70 - 6.10 /CUMM) Cancelled 4.13 L Hgb (14.0 - 18.0 G/DL) Cancelled 11.8 L Hct (42 - 52 %) Cancelled 36.6 L MCV (80.0 - 94.0 FL) Cancelled 88.6 MCH (27.0 - 31.0 PG) Cancelled 28.6 RDW (11.5 - 14.5 %) Cancelled 15.3 H Plt Count (130 - 400 /CUMM) Cancelled 132 MPV (7.4 - 10.4 FL) Cancelled 8.9 Gran % (42.2 - 75.2 %) 96.0 H Lymphocytes % (20.5 - 51.1 %) 1.9 L Monocytes % (1.7 - 9.3 %) 1.7 Eosinophils % (0 - 5 %) 0.4 Basophils % (0.0 - 2.0 %) 0 L Absolute Granulocytes (1.4 - 6.5 /CUMM) 14.4 H Absolute Lymphocytes (1.2 - 3.4 /CUMM) 0.3 L Absolute Monocytes (0.10 - 0.60 /CUMM) 0.2 Absolute Eosinophils (0.0 - 0.7 /CUMM) 0.1 Absolute Basophils (0.0 - 0.2 /CUMM) 0 PUBS MCHC (33.0 - 37.0 G/DL) Cancelled 32.3 L Imaging/Other Studies: TECHNIQUE: Portable AP view of the chest was obtained. FINDINGS: There is a new single lead left-sided pacer the tip of the lead in the left ventricle. There is a right IJ tunneled hemodialysis catheter with the functional tip in the right atrium. Cardiac silhouette is enlarged but stable. The lung volumes are low. No consolidation or significant effusion. No pulmonary edema. No pneumothorax. IMPRESSION: No pneumothorax status post left-sided pacer placement.
--- NOTE | 2016-09-12 12:47 | PN- Hematology ---
Subjective Subjective: He reports some mild abdominal pain. Review of Systems Constitutional: Denies: chills, fever. EENTM: Denies: visual changes. Cardiovascular: Denies: chest pain. Respiratory: Denies: short of breath. Gastrointestinal: Reports: abdominal pain, distention. Denies: diarrhea, nausea. Genitourinary: Denies: hematuria. Musculoskeletal: Reports: back pain. Skin: Reports: rash. Neurological/Psychological: Denies: confusion. Hematologic/Endocrine: Denies: bleeding. All Other Systems: Reviewed and Negative Objective Vital Signs and I&Os Vital Signs Date Time Temp Pulse Resp B/P Pulse O2 O2 Flow FiO2 Ox Delivery Rate 09/12 1028 154/60 09/12 0700 97.9 74 22 146/72 96 Room Air 09/11 2300 97.7 67 22 150/80 94 Room Air 09/11 1955 97 Room Air 09/11 1600 97.0 87 20 126/82 96 Room Air 09/11 1412 97 Room Air Room Air Intake & Output 09/12 1600 09/12 0800 09/12 0000 09/11 1600 09/11 0800 09/11 0000 Intake Total 302 448 480 200 480 Output Total 950 975 820 800 650 Balance -648 -527 -340 -600 -170 Intake, IV 182 208 Intake, Oral 120 240 480 200 480 Number 0 0 1 Bowel Movements Output, Urine 950 975 820 800 650 Patient 99.79 kg 97.069 kg Weight Physical Exam General Appearance: alert, awake, comfortable Head: atraumatic Respiratory: normal breath sounds, chest non-tender, quiet respiration, decreased breath sounds Cardiovascular: irregularly irregular Abdomen: normal bowel sounds, soft Neurologic/Psychiatric: alert, oriented x 3 Skin: rash (bilateral lower extremity), no cyanosis Current Medications: Current Medications Sig/Dagoberto Start time Last Medication Dose Route Stop Time Status Admin Acetaminophen 650 MG Q6P PRN 08/23 2345 AC 09/07 PO 2045 Albuterol Sulfate 3 ML Q4P PRN 08/30 1645 AC 09/07 INH 2115 Benzocaine/Menthol 1 SUKH Q4P PRN 08/31 1100 AC PO Benzonatate 100 MG TID PRN 08/25 1115 AC 08/30 PO 1652 Bisacodyl 5 MG DAILY 08/27 1358 AC 09/11 PO 0951 Cholecalciferol 1,000 IU DAILY 08/29 1046 AC 09/12 PO 1028 Fluticasone 2 SPRAY DAILY 09/09 1045 AC 09/12 Propionate KATHARINE 1028 Folic Acid 1 MG DAILY 08/24 1000 AC 09/12 PO 1028 Guaifenesin 10 ML Q6P PRN 08/26 1530 AC 09/09 PO 0903 Heparin Sodium/ 25,000 UNIT Q24H 09/11 0815 DC 09/11 Dextrose IV 0949 Dextrose/Water 500 ML Hydrocortisone/ 1 BEVERLY TIDPRN PRN 09/09 1200 AC Pramoxine WI Melatonin 5 MG AT BEDTIME 09/08 2200 AC 09/11 PO 2156 Metoprolol Succinate 100 MG DAILY 09/09 1730 AC 09/12 PO 1028 Multivitamins 1 TAB DAILY 08/24 1000 AC 09/12 PO 1028 Omeprazole 40 MG DAILY AC 08/29 1045 AC 09/12 PO 1028 Oxycodone/ 1 TAB Q4-6 PRN PRN 09/09 1630 AC Acetaminophen PO Oxycodone/ 2 TAB Q4-6 PRN PRN 09/09 1630 AC Acetaminophen PO Phenol 2 SPRAY Q2P PRN 08/30 0900 AC 09/09 EXT 0903 Polyethylene Glycol 17 GM DAILY 08/27 1358 AC 09/11 PO 0950 Prednisone 60 MG DAILY 09/01 1000 AC 09/12 PO 1028 Sodium Polystyrene 120 ML ONCE ONE 09/12 0800 DC Sulfonate PO 09/12 0801 Thiamine HCl 100 MG DAILY 08/24 1000 AC 09/12 PO 1028 Results Last 24 Hours of Lab Results: Laboratory Tests 09/12 09/12 1230 0914 Chemistry Magnesium Cancelled Coagulation APTT Cancelled Hematology CBC w Diff Cancelled WBC Cancelled RBC Cancelled Hgb Cancelled Hct Cancelled MCV Cancelled MCH Cancelled RDW Cancelled Plt Count Cancelled MPV Cancelled PUBS MCHC Cancelled 09/12 09/11 09/11 0430 1626 1620 Chemistry Sodium (137 - 145 mmol/L) 142 Potassium (3.5 - 5.1 mmol/L) 5.6 H Chloride (98 - 107 mmol/L) 107 Carbon Dioxide (22 - 30 mmol/L) 30 Anion Gap (5 - 16) 6 BUN (9 - 20 mg/dL) 94 H Creatinine (0.7 - 1.2 mg/dL) 2.6 H Estimated GFR (>60 ml/min) 24 L BUN/Creatinine Ratio (7 - 25 %) 36.2 H Phosphorus (2.5 - 4.5 mg/dL) 6.0 H Magnesium (1.6 - 2.3 mg/dL) 2.0 Coagulation PT (9.4 - 12.5 SEC) 19.7 H Cancelled 19.8 H INR (0.90 - 1.17) 1.89 H Cancelled 1.90 H APTT (25 - 37 SEC) > 120 *H 84 H Hematology CBC w Diff MAN DIFF ORDERED WBC (4.8 - 10.8 /CUMM) 17.5 H RBC (4.70 - 6.10 /CUMM) 3.86 L Hgb (14.0 - 18.0 G/DL) 11.1 L Hct (42 - 52 %) 34.1 L MCV (80.0 - 94.0 FL) 88.5 MCH (27.0 - 31.0 PG) 28.8 RDW (11.5 - 14.5 %) 15.4 H Plt Count (130 - 400 /CUMM) 100 L MPV (7.4 - 10.4 FL) 9.3 Gran % (42.2 - 75.2 %) 88.8 H Lymphocytes % (20.5 - 51.1 %) 3.8 L Monocytes % (1.7 - 9.3 %) 7.1 Eosinophils % (0 - 5 %) 0.3 Basophils % (0.0 - 2.0 %) 0 L Absolute Granulocytes (1.4 - 6.5 /CUMM) 15.5 H Segmented Neutrophils (42.2 - 75.2 %) 95 H Absolute Lymphocytes (1.2 - 3.4 /CUMM) 0.7 L Lymphocytes (20.5 - 51.1 %) 2 L Monocytes (1.7 - 9.3 %) 3 Absolute Monocytes (0.10 - 0.60 /CUMM) 1.3 H Absolute Eosinophils (0.0 - 0.7 /CUMM) 0 Absolute Basophils (0.0 - 0.2 /CUMM) 0 Platelet Estimate (ADEQUATE) DECREASED Poikilocytosis 1+ Ovalocytes 2+ PUBS MCHC (33.0 - 37.0 G/DL) 32.6 L Assessment/Plan Assessment/Recommendations: Mr. Dutton is a 71-year-old male with afib on warfarin, CAD s/p stents who presents with new leukocytoclastic vasculitis. He has had fluctuating thrombocytopenia. Previous there was concern for HIT. LEONARDO was noted to be negative. This makes it unlikely he has HIT. He has been restarted on heparin drip. This was held due to hematoma at pacemaker site. He continues to be on steroid for his vasculitis. Thrombocytopenia is a little lower today. This should be monitor daily. Leukocytosis is likely reactive and demargination from steroid. Anticoagulation as per primary and cardiology for atrial fibrillation 1. Monitor CBC daily Please call [phone] with any questions. Problem List: 1. Thrombocytopenia
[2016-09-12 16:07] VITALS: BP 122/74
--- NOTE | 2016-09-12 16:34 | PN- Infect Dx ---
Subjective Subjective: Afebrile on steroids. He feels well with no complaints Objective Last 24 Hrs of Vital Signs/I&O Vital Signs Date Time Temp Pulse Resp B/P Pulse O2 O2 Flow FiO2 Ox Delivery Rate 09/12 1607 97.9 80 20 122/74 98 Room Air 09/12 1445 94 Room Air Room Air 09/12 1028 154/60 09/12 0700 97.9 74 22 146/72 96 Room Air 09/11 2300 97.7 67 22 150/80 94 Room Air 09/11 1955 97 Room Air Intake & Output 09/12 1600 09/12 0800 09/12 0000 Intake Total 302 448 Output Total 950 975 Balance -648 -527 Intake, IV 182 208 Intake, Oral 120 240 Number 0 0 Bowel Movements Output, Urine 950 975 Patient 220 lb Weight Physical Exam Other Physical Findings: He appears comfortable in no acute distress Neck right IJ tunneled catheter with no inflammation at the site Chest left upper chest pacemaker site with ecchymosis, slightly tender to palpation Lungs are clear Heart regular rhythm with no murmur Extremities bilateral lower extremity edema, right thigh slightly greater than left thigh Results Last 24 Hours of Lab Results: Laboratory Tests 09/12 09/12 09/12 1230 0950 0914 Chemistry Magnesium Cancelled Coagulation PT Cancelled INR Cancelled APTT Cancelled Hematology CBC w Diff Cancelled WBC Cancelled RBC Cancelled Hgb Cancelled Hct Cancelled MCV Cancelled MCH Cancelled RDW Cancelled Plt Count Cancelled MPV Cancelled PUBS MCHC Cancelled 09/12 0430 Chemistry Sodium (137 - 145 mmol/L) 142 Potassium (3.5 - 5.1 mmol/L) 5.6 H Chloride (98 - 107 mmol/L) 107 Carbon Dioxide (22 - 30 mmol/L) 30 Anion Gap (5 - 16) 6 BUN (9 - 20 mg/dL) 94 H Creatinine (0.7 - 1.2 mg/dL) 2.6 H Estimated GFR (>60 ml/min) 24 L BUN/Creatinine Ratio (7 - 25 %) 36.2 H Phosphorus (2.5 - 4.5 mg/dL) 6.0 H Magnesium (1.6 - 2.3 mg/dL) 2.0 Coagulation PT (9.4 - 12.5 SEC) 19.7 H INR (0.90 - 1.17) 1.89 H APTT (25 - 37 SEC) > 120 *H Hematology CBC w Diff MAN DIFF ORDERED WBC (4.8 - 10.8 /CUMM) 17.5 H RBC (4.70 - 6.10 /CUMM) 3.86 L Hgb (14.0 - 18.0 G/DL) 11.1 L Hct (42 - 52 %) 34.1 L MCV (80.0 - 94.0 FL) 88.5 MCH (27.0 - 31.0 PG) 28.8 RDW (11.5 - 14.5 %) 15.4 H Plt Count (130 - 400 /CUMM) 100 L MPV (7.4 - 10.4 FL) 9.3 Gran % (42.2 - 75.2 %) 88.8 H Lymphocytes % (20.5 - 51.1 %) 3.8 L Monocytes % (1.7 - 9.3 %) 7.1 Eosinophils % (0 - 5 %) 0.3 Basophils % (0.0 - 2.0 %) 0 L Absolute Granulocytes (1.4 - 6.5 /CUMM) 15.5 H Segmented Neutrophils (42.2 - 75.2 %) 95 H Absolute Lymphocytes (1.2 - 3.4 /CUMM) 0.7 L Lymphocytes (20.5 - 51.1 %) 2 L Monocytes (1.7 - 9.3 %) 3 Absolute Monocytes (0.10 - 0.60 /CUMM) 1.3 H Absolute Eosinophils (0.0 - 0.7 /CUMM) 0 Absolute Basophils (0.0 - 0.2 /CUMM) 0 Platelet Estimate (ADEQUATE) DECREASED Poikilocytosis 1+ Ovalocytes 2+ PUBS MCHC (33.0 - 37.0 G/DL) 32.6 L Last 24 Hours of Hemal Results: No recent cultures Assessment/Plan Impression: Stable status post pacemaker placement 3 days ago, complicated by a small hematoma. He remains afebrile (on steroids) with white blood cell count still elevated, though decreased, likely secondary to steroids for a presumed vasculitis, with repeat skin biopsy pending. His right thigh cellulitis appears to be resolved now off antibiotics for 3 days. His renal function continues to improve and he is not likely to require any further dialysis. Suggestion: 1. Remove hemodialysis catheter in a.m. per Renal if creatinine stable or improved 2. Follow-up results of recent skin biopsy 3. Continue to follow off antibiotics Will no longer follow at this time but please call with any questions
[2016-09-13 00:13] VITALS: BP 140/82
--- NOTE | 2016-09-13 06:15 | PN- Housestaff ---
JAMIN BAKER,JOSESITO 09/13/16 0615: Subjective Follow-up For: CHARLES Petechial rash Asystole s/p pacemaker placement Afib Tele-Events Since Last Visit: Afib, HR 78-86 Subjective: Patient is seen and examined at bedside. No new complaints. Itchiness a little worse than yest but pain is better. He reports constipation and agrees to increasing the bowel regimen. Denies any f/c, headache, dyspnea, chest pain, palpitations, n/v/, dizziness/lightheadedness. Review of Systems Constitutional: Reports: see HPI. Objective Last 24 Hrs of Vital Signs/I&O Vital Signs Date Time Temp Pulse Resp B/P Pulse O2 O2 Flow FiO2 Ox Delivery Rate 09/13 0013 97.8 76 20 140/82 97 Room Air 09/13 0000 96 09/12 1607 97.9 80 20 122/74 98 Room Air 09/12 1600 98 Room Air 09/12 1445 94 Room Air Room Air 09/12 1028 154/60 Intake & Output 09/13 0800 09/13 0000 09/12 1600 Intake Total 680 420 480 Output Total 800 975 450 Balance -120 -555 30 Intake, IV 20 Intake, Oral 680 400 480 Number 2 Bowel Movements Output, Urine 800 975 450 Patient 100.868 kg Weight Physical Exam General Appearance: Alert, Oriented X3, Cooperative, No Acute Distress Other Physical Findings: Skin: purpuric lesions on both lower extremities dry skin, hematoma around the pacemmaker placement site on the left chest extending to the prox LUE HEENT: Atraumatic Cardiovascular: irregular rate Lungs: Clear to Auscultation, Normal Air Movement Abdomen: Normal Bowel Sounds, Soft, No Tenderness Neurological: Normal Speech Extremities: Trace edema Current Medications: Current Medications Sig/Dagoberto Start time Last Medication Dose Route Stop Time Status Admin Acetaminophen 650 MG Q6P PRN 08/23 2345 AC 09/07 PO 2045 Albuterol Sulfate 3 ML Q4P PRN 08/30 1645 DC 09/07 INH 2115 Benzocaine/Menthol 1 SUKH Q4P PRN 08/31 1100 AC PO Benzonatate 100 MG TID PRN 08/25 1115 AC 08/30 PO 1652 Bisacodyl 10 MG DAILY PRN 09/12 1400 AC 09/12 SD 1745 Bisacodyl 5 MG DAILY 08/27 1358 AC 09/11 PO 0951 Cholecalciferol 1,000 IU DAILY 08/29 1046 AC 09/12 PO 1028 Fluticasone 2 SPRAY DAILY 09/09 1045 AC 09/12 Propionate KATHARINE 1028 Folic Acid 1 MG DAILY 08/24 1000 AC 09/12 PO 1028 Guaifenesin 10 ML Q6P PRN 08/26 1530 AC 09/09 PO 0903 Heparin Sodium/ 25,000 UNIT Q24H 09/11 0815 DC 09/11 Dextrose IV 0949 Dextrose/Water 500 ML Hydrocortisone/ 1 BEVERLY TIDPRN PRN 09/09 1200 AC Pramoxine SD Melatonin 5 MG AT BEDTIME 09/08 2200 AC 09/12 PO 2208 Metoprolol Succinate 100 MG DAILY 09/09 1730 AC 09/12 PO 1028 Multivitamins 1 TAB DAILY 08/24 1000 AC 09/12 PO 1028 Omeprazole 40 MG DAILY AC 08/29 1045 AC 09/13 PO 0622 Oxycodone/ 1 TAB Q4-6 PRN PRN 09/09 1630 AC Acetaminophen PO Oxycodone/ 2 TAB Q4-6 PRN PRN 09/09 1630 AC Acetaminophen PO Phenol 2 SPRAY Q2P PRN 08/30 0900 AC 09/09 EXT 0903 Polyethylene Glycol 17 GM DAILY 08/27 1358 AC 09/11 PO 0950 Prednisone 60 MG DAILY 09/01 1000 AC 09/12 PO 1028 Sodium Polystyrene 120 ML ONCE ONE 09/12 0800 DC Sulfonate PO 09/12 0801 Thiamine HCl 100 MG DAILY 08/24 1000 AC 09/12 PO 1028 Last 24 Hrs of Lab/Hemal Results Last 24 Hrs of Labs/Mics: Laboratory Tests 09/12/16 1230: APTT Cancelled 09/12/16 0950: PT Cancelled, INR Cancelled 09/12/16 0914: Magnesium Cancelled, CBC w Diff Cancelled, WBC Cancelled, RBC Cancelled, Hgb Cancelled, Hct Cancelled, MCV Cancelled, MCH Cancelled, RDW Cancelled, Plt Count Cancelled, MPV Cancelled, PUBS MCHC Cancelled Assessment/Plan Assessment: 71-year-old man with PMH of atrial fibrillation on Coumadin, CAD status post stents, with varicose veins, hospitalized 3 weeks EMT P after trauma to the right leg requiring 2 units of blood, with persistent swelling, discomfort and discoloration of the right leg since then, self treated persistent leg swelling with Lasix several days prior to admission, prseneted to ED on August 23 with a diffuse petechial rash that was more localized one week EMT P, with no associated fevers or chills. # Diffuse petechial rash Most likely ddx at this point is Henoch-Schnlein purpura which needs to be confirmed on renal biopsy. Patient has petechial rash in all extremities, first noted one week prior to admission, with persistent ecchymosis, edema and mild discomfort of the right leg. Subsequently developed CHARLES and hyperkalemia with microscopic hematuria. Also associated with cough with hemoptysis (not likely to be pulmonary based on chest ct). Elevated ESR 36, CRP >15, RF 13.9. Negative hepatitis panel, HIV, MARTIN, ANCA, cryoglobulin. Normal C3 and C4. 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 * Check BEP daily, trend Cr - improving * Remove the dialysis cath as per nephro # Hx of asystole with advanced av block & new RBBB - Stat echo 09/08/16: Severely reduced left ventricular systolic function with akinesia of the inferior wall. Mild Aortic regurgitation and mild to moderate Mitral regurgitation with mild pulmonary hypertension. EF 20-25% * s/p pacemaker placement by Dr. Coombs (09/09) * Hold heparin drip in the setting of hematoma in the pacemaker site * Cont metoprolol 100mg PO daily. # Constipation * Cont bowel regimen and suppository as needed # Atrial fibrillation ( on coumadin at home) - CHADVASc score is 4 putting him at mod-high risk for stroke, on ArgatrobanCoumadin on hold due to possible renal biopsy * Holding heparin drip after pacemaker implantation, awaiting for a skin biopsy. If negative, and possible renal biopsy. # Hx of CAD/prior myocardial infarction with mild to moderate left ventricular dysfunction by previous noninvasive imaging, now with severe LV dysfunction - Despite the cardiomyopathy he is not a candidate for addition of LISETH-I at this time * Restart aspirin 81 mg when medically cleared * Cardio recommend adding low-dose Lipitor 20 mg by mouth daily when medically cleared # One episode of NSVT on telemetry, chronic LBBB (resolved) * Cont Toprol XL 100 mg daily, # Hx of HTN * Continue antihypertensive medication # Possible Cellulitis of right thigh secondary to lower extremity ulceration - X-ray of the right tibia/fibula negative. - Doppler of the right lower extremity negative * ID input appreciated * Cont to monitor off antibiotics * Wound consult appreciated * Monitor WBC * Xeroform and leg elevation above his heart Diet: renal dialysis diet DVT ppx: supratherapeutic INR DNR/DNI In the event of any changes or updates please contact his son Paulo at [phone] or [id number] Sandra who is a hospice nurse at [phone] Problem List: 1. Thrombosed external hemorrhoid 2. Symptomatic anemia 3. Hypovolemic shock 4. Bleeding from varicose veins of right lower extremity 5. Atrial fibrillation 6. Acute kidney injury 7. Petechial rash 8. Glomerulonephritis 9. Henoch-Schonlein purpura 10. AV block 11. Thrombocytopenia affecting 12. Thrombocytopenia 13. HFrEF (heart failure with reduced ejection fraction) Pain Ratin Pain Location: Leg Pain Goal: Remain pain free Pain Plan: Mild pathway Tomorrow's Labs & Rationales: BEP Mg Phos for arrythmia CBC for low platelet INR Consulting Request: Consulting Specialty: Hematology/Oncology OMAIRA FUNES 09/13/16 1030: Attending MD Review Statement Attending Statement Attending MD Statement: examined this patient, discuss w/resident/PA/PIPE STRIPPER, agreed w/resident/PA/PIPE STRIPPER, discussed with family, reviewed EMR data (avail), discussed with nursing, discussed with case mgmt, reviewed images Attending Assessment/Plan: 71 o/m with multiple medical problems as documented above is awaiting renal biopsy which could be done as outpatient , cardiology following , tolerating b freddy, low EF not candidate of liseth inhibitor 2/2 acute kidney injury needing dialysis. Check with nephrology in future if able to start LISETH inhibitor in systolic chf NYHA 3. Patient found to have hematoama at pacemaker site. Cardiology recommend to stop heparin drip for next 24 hrs and monitor hematoma. In case it worsens they will evacuate pocket. Hematolgoy notes reviewed, obtain US LUE r/o DVT for SAEID swelling. Patient explained risks/benefits of anticoagualiton in this scenario and patient agrees to plan. Monitor patient closely. Call me if any changes.
[2016-09-13 08:23] VITALS: BP 161/85
[2016-09-13 08:59] LABS: ABSOLUTE BASOPHIL COUNT 0.1 /CUMM (0.0-0.2); ABSOLUTE EOSINOPHIL COUNT 0 /CUMM (0.0-0.7); ABSOLUTE GRANULOCYTE CT 17.6 /CUMM (1.4-6.5); ABSOLUTE MONOCYTE COUNT 1.5 /CUMM (0.10-0.60); BASOPHIL % 0.3 % (0.0-2.0); EOSINOPHIL % 0.1 % (0-5); GRANULOCYTE % 87.5 % (42.2-75.2); HEMATOCRIT 35.3 % (42-52); MEAN CORPUSCULAR HGB 28.8 PG (27.0-31.0); MEAN CORPUSCULAR HGB CONC 32.7 G/DL (33.0-37.0); MEAN CORPUSCULAR VOLUME 88.1 FL (80.0-94.0); MEAN PLATELET VOLUME 9.1 FL (7.4-10.4); PLATELET COUNT 89 /CUMM (130-400); RBC DISTRIBUTION WIDTH 15.7 % (11.5-14.5); RED BLOOD CELL CT 4.01 /CUMM (4.70-6.10)
--- NOTE | 2016-09-13 09:09 | PN- Hematology ---
Subjective Subjective: He feels generally well. He does note new left arm swelling. He has a hard time closing his left arm. He has no fever or chills. Review of Systems: Constitutional: Denies: chills, fever. Cardiovascular: Denies: chest pain. Respiratory: Denies: short of breath. Gastrointestinal: Reports: abdominal pain, distention. Denies: diarrhea, nausea. Musculoskeletal: Reports: back pain. Left arm swelling Skin: Reports: rash. Neurological/Psychological: Denies: confusion. Hematologic/Endocrine: Denies: bleeding. All Other Systems: Reviewed and Negative Objective Vital Signs and I&Os Vital Signs Date Time Temp Pulse Resp B/P Pulse O2 O2 Flow FiO2 Ox Delivery Rate 09/13 0823 98.6 78 15 161/85 99 Room Air 09/13 0013 97.8 76 20 140/82 97 Room Air 09/13 0000 96 09/12 1607 97.9 80 20 122/74 98 Room Air 09/12 1600 98 Room Air 09/12 1445 94 Room Air Room Air 09/12 1028 154/60 Intake & Output 09/13 1600 09/13 0800 09/13 0000 09/12 1600 09/12 0800 09/12 0000 Intake Total 680 420 480 302 448 Output Total 800 975 450 950 975 Balance -120 -555 30 -648 -527 Intake, IV 20 182 208 Intake, Oral 680 400 480 120 240 Number 2 0 0 Bowel Movements Output, Urine 800 975 450 950 975 Patient 100.868 kg 99.79 kg Weight Physical Exam: General Appearance: alert, awake, comfortable Head: atraumatic Respiratory: normal breath sounds, chest non-tender, quiet respiration, decreased breath sounds Cardiovascular: irregularly irregular Abdomen: normal bowel sounds, soft Neurologic/Psychiatric: alert, oriented x 3 Musculoskeletal: left arm swelling Skin: rash (bilateral lower extremity and upper extremity), no cyanosis Current Medications: Current Medications Sig/Dagoberto Start time Last Medication Dose Route Stop Time Status Admin Acetaminophen 650 MG Q6P PRN 08/23 2345 AC 09/07 PO 2045 Albuterol Sulfate 3 ML Q4P PRN 08/30 1645 DC 09/07 INH 2115 Benzocaine/Menthol 1 SUKH Q4P PRN 08/31 1100 AC PO Benzonatate 100 MG TID PRN 08/25 1115 AC 08/30 PO 1652 Bisacodyl 10 MG DAILY PRN 09/12 1400 AC 09/12 WI 1745 Bisacodyl 5 MG DAILY 08/27 1358 AC 09/11 PO 0951 Cholecalciferol 1,000 IU DAILY 08/29 1046 AC 09/12 PO 1028 Fluticasone 2 SPRAY DAILY 09/09 1045 AC 09/12 Propionate KATHARINE 1028 Folic Acid 1 MG DAILY 08/24 1000 AC 09/12 PO 1028 Guaifenesin 10 ML Q6P PRN 08/26 1530 AC 09/09 PO 0903 Heparin Sodium/ 25,000 UNIT Q24H 09/11 0815 DC 09/11 Dextrose IV 0949 Dextrose/Water 500 ML Hydrocortisone/ 1 BEVERLY TIDPRN PRN 09/09 1200 AC Pramoxine WI Melatonin 5 MG AT BEDTIME 09/08 2200 AC 09/12 PO 2208 Metoprolol Succinate 100 MG DAILY 09/09 1730 AC 09/12 PO 1028 Multivitamins 1 TAB DAILY 08/24 1000 AC 09/12 PO 1028 Omeprazole 40 MG DAILY AC 08/29 1045 AC 09/13 PO 0622 Oxycodone/ 1 TAB Q4-6 PRN PRN 09/09 1630 AC Acetaminophen PO Oxycodone/ 2 TAB Q4-6 PRN PRN 09/09 1630 AC Acetaminophen PO Phenol 2 SPRAY Q2P PRN 08/30 0900 AC 09/09 EXT 0903 Polyethylene Glycol 17 GM DAILY 08/27 1358 AC 09/11 PO 0950 Prednisone 60 MG DAILY 09/01 1000 AC 09/12 PO 1028 Senna/Docusate Sodium 2 TAB DAILY 09/13 1000 AC PO Thiamine HCl 100 MG DAILY 08/24 1000 AC 09/12 PO 1028 Results Last 24 Hours of Lab Results: Laboratory Tests 09/13 09/12 09/12 09/12 0848 1230 0950 0914 Chemistry Sodium Pending Potassium Pending Chloride Pending Carbon Dioxide Pending Anion Gap Pending BUN Pending Creatinine Pending BUN/Creatinine Ratio Pending Phosphorus Pending Magnesium Pending Cancelled Coagulation PT Pending Cancelled INR Pending Cancelled APTT Cancelled Hematology CBC w Diff Pending Cancelled WBC Pending Cancelled RBC Pending Cancelled Hgb Pending Cancelled Hct Pending Cancelled MCV Pending Cancelled MCH Pending Cancelled RDW Pending Cancelled Plt Count Pending Cancelled MPV Pending Cancelled Gran % Pending Lymphocytes % Pending Monocytes % Pending Eosinophils % Pending Basophils % Pending Absolute Granulocytes Pending Absolute Lymphocytes Pending Absolute Monocytes Pending Absolute Eosinophils Pending Absolute Basophils Pending PUBS MCHC Pending Cancelled Assessment/Plan Assessment/Recommendations: Mr. Dutton is a 71-year-old male with afib on warfarin, CAD s/p stents who presents with new leukocytoclastic vasculitis. He has had fluctuating thrombocytopenia. Previous there was concern for HIT. LEONARDO was noted to be negative. This makes it unlikely he has HIT. He has been restarted on heparin drip. This was held due to hematoma at pacemaker site. He continues to be on steroid for his vasculitis. CBC is pending today. He has new LUE edema today. This should be evaluated with US and potential at his hematoma site for possible compression and DVT. Team expressed that there was some concern over INR being elevated. This may be elevated with a trial of vitamin K for 3 days to see if it improves. This will make it tougher to restart him on warfarin later. Other option is mixing study. 1. Monitor CBC daily 2. Ultrasound of the LUE Please call [phone] with any questions. Problem List: 1. Thrombocytopenia 2. Glomerulonephritis 3. Atrial fibrillation
[2016-09-13 09:27] LABS: WHITE BLOOD CELL COUNT 20.2 /CUMM (4.8-10.8)
--- NOTE | 2016-09-13 09:54 | ULTRASOUND REPORT ---
EXAMINATION: DUPLEX VENOUS ULTRASOUND OF THE left UPPER EXTREMITY. CLINICAL HISTORY: Left upper extremity swelling and weakness. Status post pacemaker procedure last week with multiple recent IV and blood draws. COMPARISON: None. TECHNIQUE: Grayscale, color and Doppler ultrasound of the deep veins of the left upper extremity were performed. FINDINGS: The left internal jugular vein is easily compressible and demonstrates normal color Doppler flow suggesting patency. The left subclavian vein demonstrates normal color Doppler flow suggesting patency. The left axillary vein demonstrates normal compressibility and normal color Doppler flow suggesting patency. The left brachial and basilic veins are easily compressible and demonstrate normal color Doppler flow suggesting patency. The left cephalic vein is easily compressible suggesting patency. The left radial and ulnar veins are easily compressible suggesting patency. IMPRESSION: No thrombus identified within the veins of the left upper extremity.
--- NOTE | 2016-09-13 10:07 | PN- Cardiology ---
Subjective Subjective: Patient states he feels better today he denies chest pain or shortness of breath. Review of Systems: Eyes no blurred or double vision Ears no deafness or ringing Nose and throat no recurrent sinusitis Lungs per history of present illness Heart per history of present illness Abdomen no nausea vomiting Musculoskeletal occasional muscle and joint pains Psych no anxiety or depression Neuro without recurrent headache or seizures Endocrine no heat or cold intolerance Objective Vital Signs and I&Os Vital Signs Date Time Temp Pulse Resp B/P Pulse O2 O2 Flow FiO2 Ox Delivery Rate 09/13 0955 78 161/85 09/13 0823 98.6 78 15 161/85 99 Room Air 09/13 0013 97.8 76 20 140/82 97 Room Air 09/13 0000 96 09/12 1607 97.9 80 20 122/74 98 Room Air 09/12 1600 98 Room Air 09/12 1445 94 Room Air Room Air 09/12 1028 154/60 Intake & Output 09/13 1600 09/13 0800 09/13 0000 09/12 1600 09/12 0800 09/12 0000 Intake Total 680 420 480 302 448 Output Total 800 975 450 950 975 Balance -120 -555 30 -648 -527 Intake, IV 20 182 208 Intake, Oral 680 400 480 120 240 Number 2 0 0 Bowel Movements Output, Urine 800 975 450 950 975 Patient 222 lb 220 lb Weight Physical Exam: Patient is a well-developed well-nourished male appearing in no acute distress HEENT is unremarkable Neck is supple there is no JVD Lungs are clear Heart irregular rhythm S1 and S2 are normal no murmurs gallops or rubs small hematoma at pacemaker site Abdomen bowel sounds positive Extremities trace e evening the thank you ryann chronic venous stasis changes Current Medications: Current Medications Sig/Dagoberto Start time Last Medication Dose Route Stop Time Status Admin Acetaminophen 650 MG Q6P PRN 08/23 2345 AC 09/07 PO 2045 Albuterol Sulfate 3 ML Q4P PRN 08/30 1645 DC 09/07 INH 2115 Benzocaine/Menthol 1 SUKH Q4P PRN 08/31 1100 DC PO Benzonatate 100 MG TID PRN 08/25 1115 DC 08/30 PO 1652 Bisacodyl 10 MG DAILY PRN 09/12 1400 AC 09/12 [place] 1745 Bisacodyl 5 MG DAILY 08/27 1358 AC 09/13 PO 0955 Cholecalciferol 1,000 IU DAILY 08/29 1046 AC 09/13 PO 0955 Fluticasone 2 SPRAY DAILY 09/09 1045 AC 09/13 Propionate KATHARINE 0951 Folic Acid 1 MG DAILY 08/24 1000 AC 09/13 PO 0955 Guaifenesin 10 ML Q6P PRN 08/26 1530 AC 09/09 PO 0903 Hydrocortisone/ 1 BEVERLY TIDPRN PRN 09/09 1200 DC Pramoxine AZ Melatonin 5 MG AT BEDTIME 09/08 2200 AC 09/12 PO 2208 Metoprolol Succinate 100 MG DAILY 09/09 1730 AC 09/13 PO 0955 Multivitamins 1 TAB DAILY 08/24 1000 AC 09/13 PO 0955 Omeprazole 40 MG DAILY AC 08/29 1045 AC 09/13 PO 0622 Oxycodone/ 1 TAB Q4-6 PRN PRN 09/09 1630 AC Acetaminophen PO Oxycodone/ 2 TAB Q4-6 PRN PRN 09/09 1630 AC Acetaminophen PO Phenol 2 SPRAY Q2P PRN 08/30 0900 AC 09/09 EXT 0903 Polyethylene Glycol 17 GM DAILY 08/27 1358 AC 09/13 PO 0955 Prednisone 60 MG DAILY 09/01 1000 AC 09/13 PO 0955 Senna/Docusate Sodium 2 TAB DAILY 09/13 1000 AC 09/13 PO 0955 Thiamine HCl 100 MG DAILY 08/24 1000 AC 09/13 PO 0955 Results Last 48 Hrs of Labs/Mics: Laboratory Tests 09/13/16 0848: Anion Gap 7, Estimated GFR 28 L, BUN/Creatinine Ratio 36.5 H, Phosphorus 5.0 H, Magnesium 1.9, PT 17.0 H, INR 1.63 H, CBC w Diff NO MAN DIFF REQ, RBC 4.01 L, MCV 88.1, MCH 28.8, RDW 15.7 H, MPV 9.1, Gran % 87.5 H, Lymphocytes % 4.8 L, Monocytes % 7.3, Eosinophils % 0.1, Basophils % 0.3, Absolute Granulocytes 17.6 H, Absolute Lymphocytes 1.0 L, Absolute Monocytes 1.5 H, Absolute Eosinophils 0, Absolute Basophils 0.1, PUBS MCHC 32.7 L 09/12/16 1230: APTT Cancelled 09/12/16 0950: PT Cancelled, INR Cancelled 09/12/16 0914: Magnesium Cancelled, CBC w Diff Cancelled, WBC Cancelled, RBC Cancelled, Hgb Cancelled, Hct Cancelled, MCV Cancelled, MCH Cancelled, RDW Cancelled, Plt Count Cancelled, MPV Cancelled, PUBS MCHC Cancelled 09/12/16 0430: Anion Gap 6, Estimated GFR 24 L, BUN/Creatinine Ratio 36.2 H, Phosphorus 6.0 H, Magnesium 2.0, PT 19.7 H, INR 1.89 H, APTT > 120 *H, CBC w Diff MAN DIFF ORDERED, RBC 3.86 L, MCV 88.5, MCH 28.8, RDW 15.4 H, MPV 9.3, Gran % 88.8 H, Lymphocytes % 3.8 L, Monocytes % 7.1, Eosinophils % 0.3, Basophils % 0 L, Absolute Granulocytes 15.5 H, Segmented Neutrophils 95 H, Absolute Lymphocytes 0.7 L, Lymphocytes 2 L, Monocytes 3, Absolute Monocytes 1.3 H, Absolute Eosinophils 0, Absolute Basophils 0, Platelet Estimate DECREASED, Poikilocytosis 1+, Ovalocytes 2+, PUBS MCHC 32.6 L 09/11/16 1626: PT Cancelled, INR Cancelled 09/11/16 1620: PT 19.8 H, INR 1.90 H, APTT 84 H 09/11/16 1006: Anion Gap 11, Estimated GFR 21 L, BUN/Creatinine Ratio 35.3 H, Phosphorus 6.4 H, Magnesium 2.0, CBC w Diff NO MAN DIFF REQ, RBC 3.88 L, MCV 88.6, MCH 28.8, RDW 15.6 H, MPV 9.4, Gran % 89.6 H, Lymphocytes % 3.2 L, Monocytes % 7.2, Eosinophils % 0, Basophils % 0 L, Absolute Granulocytes 18.7 H, Absolute Lymphocytes 0.7 L, Absolute Monocytes 1.5 H, Absolute Eosinophils 0, Absolute Basophils 0, PUBS MCHC 32.5 L Assessment/Plan Assessment/Plan 1. 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 Persistent atrial fibrillation on anticoagulation with Coumadin on hold 3. History of coronary artery disease/prior myocardial infarction with mild to moderate left ventricular dysfunction by previous noninvasive imaging, now with severe LV dysfunction 4. NSVT on telemetry 5. Small bilateral pleural effusions 6. Chronic left bundle branch block 7. Hx HTN 8. Venous insufficiency 9. 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 Prolonged pauses, s/p MRI compatible single lead permanent pacemaker 09/09/16 Patient underwent MRI compatible single lead permanent pacemaker 09/09/16. Heparin is on hold. Continue on the Toprol-XL daily as the patient is now status post pacemaker. Addition of LISETH inhibitor therapy is not currently appropriate. If the patient continues to have a low ejection fraction in the future despite medical optimization he may be a candidate for upgrade to biventricular AICD. Continue telemetry? Yes
--- NOTE | 2016-09-13 11:25 | PN- Thoracic Surgery ---
Surgical Brief Attending Note Brief Attending Note: Wound stable . Continue off anticoagulation for now
--- NOTE | 2016-09-13 11:30 | PN- Thoracic Surgery ---
Surgical Brief Attending Note Brief Attending Note: called by house staff due to a question of expanding edwina-ppm hematoma. I have seen the site as well as Dr Coombs today and it is no better or worse than the previous day. Still rec holding off on anticoagulation for another 24hrs.
--- NOTE | 2016-09-13 11:56 | PN- Nephrology ---
Assessment/Plan Assessment: 1. 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 ? 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 Continues to improve w/o further HD need --> d/c HD cath. No renal bx w coagulopathy & thrombocytopenia. Suggestion: 1. IR consult to remove HD cath 2. Continue current prednisone 3. OK to start warfarin --> no apixaban or rivaroxaban 4. Discharge planning w outpt f/u our office --> Dr Morejon Subjective Subjective: Feeling well w/o uremic sx No SOB Remains nonoliguric Continues on heparin drip Objective Vital Signs and I&Os Vital Signs Date Time Temp Pulse Resp B/P Pulse O2 O2 Flow FiO2 Ox Delivery Rate 09/13 0955 78 161/85 09/13 0823 98.6 78 15 16185 99 Room Air 09/13 0013 97.8 76 20 140/82 97 Room Air 09/13 0000 96 09/12 1607 97.9 80 20 122/74 98 Room Air 09/12 1600 98 Room Air 09/12 1445 94 Room Air Room Air Intake & Output 09/13 1600 09/13 0400 09/12 1600 09/12 0400 09/11 1600 09/11 0400 Intake Total 680 420 782 448 680 480 Output Total 606 191 1600 975 1620 650 Balance -120 -555 -618 -527 -940 -170 Intake, IV 20 182 208 Intake, Oral 680 400 600 240 680 480 Number 2 0 0 1 Bowel Movements Output, Urine 670 109 9192 975 1620 650 Patient 222 lb 220 lb 214 lb Weight Physical Exam General Appearance: well developed/nourished, no apparent distress, alert Head: atraumatic, normal appearance Neck: Pacer below L clavicle Respiratory: normal breath sounds, no respiratory distress, quiet respiration, lungs clear Cardiovascular: regular rate/rhythm Abdomen: soft, non-tender, no organomegaly Extremities: swelling Neurologic/Psychiatric: awake, alert, oriented x 3 Skin: ecchymosis Current Medications: Current Medications Sig/Dagoberto Start time Last Medication Dose Route Stop Time Status Admin Acetaminophen 650 MG Q6P PRN 08/23 2345 AC 09/07 PO 5 Albuterol Sulfate 3 ML Q4P PRN 08/30 1645 DC 09/07 INH 2115 Benzocaine/Menthol 1 SUKH Q4P PRN 08/31 1100 DC PO Benzonatate 100 MG TID PRN 08/25 1115 DC 08/30 PO 1652 Bisacodyl 10 MG DAILY PRN 09/12 1400 AC 09/12 IN 1745 Bisacodyl 5 MG DAILY 08/27 1358 AC 09/13 PO 0955 Cholecalciferol 1,000 IU DAILY 08/29 1046 AC 09/13 PO 0955 Fluticasone 2 SPRAY DAILY 09/09 1045 AC 09/13 Propionate KATHARINE 0951 Folic Acid 1 MG DAILY 08/24 1000 AC 09/13 PO 0955 Guaifenesin 10 ML Q6P PRN 08/26 1530 AC 09/09 PO 0903 Hydrocortisone/ 1 BEVERLY TIDPRN PRN 09/09 1200 DC Pramoxine IN Melatonin 5 MG AT BEDTIME 09/08 2200 AC 09/12 PO 2208 Metoprolol Succinate 100 MG DAILY 09/09 1730 AC 09/13 PO 0955 Multivitamins 1 TAB DAILY 08/24 1000 AC 09/13 PO 0955 Omeprazole 40 MG DAILY AC 08/29 1045 AC 09/13 PO 0622 Oxycodone/ 1 TAB Q4-6 PRN PRN 09/09 1630 AC Acetaminophen PO Oxycodone/ 2 TAB Q4-6 PRN PRN 09/09 1630 AC Acetaminophen PO Phenol 2 SPRAY Q2P PRN 08/30 0900 AC 09/09 EXT 0903 Polyethylene Glycol 17 GM DAILY 08/27 1358 AC 09/13 PO 0955 Prednisone 60 MG DAILY 09/01 1000 AC 09/13 PO 0955 Senna/Docusate Sodium 2 TAB DAILY 09/13 1000 AC 09/13 PO 0955 Thiamine HCl 100 MG DAILY 08/24 1000 AC 09/13 PO 0955 Results Pertinent Lab Results: Laboratory Tests 09/13 09/12 09/12 0848 1230 0950 Chemistry Sodium (137 - 145 mmol/L) 139 Potassium (3.5 - 5.1 mmol/L) 5.3 H Chloride (98 - 107 mmol/L) 106 Carbon Dioxide (22 - 30 mmol/L) 26 Anion Gap (5 - 16) 7 BUN (9 - 20 mg/dL) 84 H Creatinine (0.7 - 1.2 mg/dL) 2.3 H Estimated GFR (>60 ml/min) 28 L BUN/Creatinine Ratio (7 - 25 %) 36.5 H Phosphorus (2.5 - 4.5 mg/dL) 5.0 H Magnesium (1.6 - 2.3 mg/dL) 1.9 Coagulation PT (9.4 - 12.5 SEC) 17.0 H Cancelled INR (0.90 - 1.17) 1.63 H Cancelled APTT Cancelled Hematology CBC w Diff NO MAN DIFF REQ WBC (4.8 - 10.8 /CUMM) 20.2 H RBC (4.70 - 6.10 /CUMM) 4.01 L Hgb (14.0 - 18.0 G/DL) 11.6 L Hct (42 - 52 %) 35.3 L MCV (80.0 - 94.0 FL) 88.1 MCH (27.0 - 31.0 PG) 28.8 RDW (11.5 - 14.5 %) 15.7 H Plt Count (130 - 400 /CUMM) 89 L MPV (7.4 - 10.4 FL) 9.1 Gran % (42.2 - 75.2 %) 87.5 H Lymphocytes % (20.5 - 51.1 %) 4.8 L Monocytes % (1.7 - 9.3 %) 7.3 Eosinophils % (0 - 5 %) 0.1 Basophils % (0.0 - 2.0 %) 0.3 Absolute Granulocytes (1.4 - 6.5 /CUMM) 17.6 H Absolute Lymphocytes (1.2 - 3.4 /CUMM) 1.0 L Absolute Monocytes (0.10 - 0.60 /CUMM) 1.5 H Absolute Eosinophils (0.0 - 0.7 /CUMM) 0 Absolute Basophils (0.0 - 0.2 /CUMM) 0.1 PUBS MCHC (33.0 - 37.0 G/DL) 32.7 L 09/12 09/12 0914 0430 Chemistry Sodium (137 - 145 mmol/L) 142 Potassium (3.5 - 5.1 mmol/L) 5.6 H Chloride (98 - 107 mmol/L) 107 Carbon Dioxide (22 - 30 mmol/L) 30 Anion Gap (5 - 16) 6 BUN (9 - 20 mg/dL) 94 H Creatinine (0.7 - 1.2 mg/dL) 2.6 H Estimated GFR (>60 ml/min) 24 L BUN/Creatinine Ratio (7 - 25 %) 36.2 H Phosphorus (2.5 - 4.5 mg/dL) 6.0 H Magnesium (1.6 - 2.3 mg/dL) Cancelled 2.0 Coagulation PT (9.4 - 12.5 SEC) 19.7 H INR (0.90 - 1.17) 1.89 H APTT (25 - 37 SEC) > 120 *H Hematology CBC w Diff Cancelled MAN DIFF ORDERED WBC (4.8 - 10.8 /CUMM) Cancelled 17.5 H RBC (4.70 - 6.10 /CUMM) Cancelled 3.86 L Hgb (14.0 - 18.0 G/DL) Cancelled 11.1 L Hct (42 - 52 %) Cancelled 34.1 L MCV (80.0 - 94.0 FL) Cancelled 88.5 MCH (27.0 - 31.0 PG) Cancelled 28.8 RDW (11.5 - 14.5 %) Cancelled 15.4 H Plt Count (130 - 400 /CUMM) Cancelled 100 L MPV (7.4 - 10.4 FL) Cancelled 9.3 Gran % (42.2 - 75.2 %) 88.8 H Lymphocytes % (20.5 - 51.1 %) 3.8 L Monocytes % (1.7 - 9.3 %) 7.1 Eosinophils % (0 - 5 %) 0.3 Basophils % (0.0 - 2.0 %) 0 L Absolute Granulocytes (1.4 - 6.5 /CUMM) 15.5 H Segmented Neutrophils (42.2 - 75.2 %) 95 H Absolute Lymphocytes (1.2 - 3.4 /CUMM) 0.7 L Lymphocytes (20.5 - 51.1 %) 2 L Monocytes (1.7 - 9.3 %) 3 Absolute Monocytes (0.10 - 0.60 /CUMM) 1.3 H Absolute Eosinophils (0.0 - 0.7 /CUMM) 0 Absolute Basophils (0.0 - 0.2 /CUMM) 0 Platelet Estimate (ADEQUATE) DECREASED Poikilocytosis 1+ Ovalocytes 2+ PUBS MCHC (33.0 - 37.0 G/DL) Cancelled 32.6 L 09/11 09/11 09/11 1626 1620 1006 Chemistry Sodium (137 - 145 mmol/L) 141 Potassium (3.5 - 5.1 mmol/L) 5.0 Chloride (98 - 107 mmol/L) 103 Carbon Dioxide (22 - 30 mmol/L) 26 Anion Gap (5 - 16) 11 BUN (9 - 20 mg/dL) 106 *H Creatinine (0.7 - 1.2 mg/dL) 3.0 H Estimated GFR (>60 ml/min) 21 L BUN/Creatinine Ratio (7 - 25 %) 35.3 H Phosphorus (2.5 - 4.5 mg/dL) 6.4 H Magnesium (1.6 - 2.3 mg/dL) 2.0 Coagulation PT (9.4 - 12.5 SEC) Cancelled 19.8 H INR (0.90 - 1.17) Cancelled 1.90 H APTT (25 - 37 SEC) 84 H Hematology CBC w Diff NO MAN DIFF REQ WBC (4.8 - 10.8 /CUMM) 20.8 H RBC (4.70 - 6.10 /CUMM) 3.88 L Hgb (14.0 - 18.0 G/DL) 11.2 L Hct (42 - 52 %) 34.4 L MCV (80.0 - 94.0 FL) 88.6 MCH (27.0 - 31.0 PG) 28.8 RDW (11.5 - 14.5 %) 15.6 H Plt Count (130 - 400 /CUMM) 104 L MPV (7.4 - 10.4 FL) 9.4 Gran % (42.2 - 75.2 %) 89.6 H Lymphocytes % (20.5 - 51.1 %) 3.2 L Monocytes % (1.7 - 9.3 %) 7.2 Eosinophils % (0 - 5 %) 0 Basophils % (0.0 - 2.0 %) 0 L Absolute Granulocytes (1.4 - 6.5 /CUMM) 18.7 H Absolute Lymphocytes (1.2 - 3.4 /CUMM) 0.7 L Absolute Monocytes (0.10 - 0.60 /CUMM) 1.5 H Absolute Eosinophils (0.0 - 0.7 /CUMM) 0 Absolute Basophils (0.0 - 0.2 /CUMM) 0 PUBS MCHC (33.0 - 37.0 G/DL) 32.5 L 09/11 0500 Chemistry Sodium Cancelled Potassium Cancelled Chloride Cancelled Carbon Dioxide Cancelled Anion Gap Cancelled BUN Cancelled Creatinine Cancelled BUN/Creatinine Ratio Cancelled Phosphorus Cancelled Magnesium Cancelled Hematology CBC w Diff Cancelled WBC Cancelled RBC Cancelled Hgb Cancelled Hct Cancelled MCV Cancelled MCH Cancelled RDW Cancelled Plt Count Cancelled MPV Cancelled PUBS MCHC Cancelled
[2016-09-13 12:17] VITALS: BP 110/70
--- NOTE | 2016-09-13 13:57 | NUR ---
WOUND CARE: PT SEEN FOR EVALUATION OF PRESSURE INJURY TO RIGHT BUTTOCKS - CLEAN RED PINK FILL 0.3 X 0.8 CM - NO EVIDENCE OF INFECTION - RECOMMENDATION: APPLY HYDROCOLLOID DRESSING TO BUTTOCKS Q 3 DAYS AND PRN - S[place]ELY[place] POSITION WIB
--- NOTE | 2016-09-13 14:54 | Discharge Summary ---
Visit Information Visit Dates Admission Date: 08/23/16 Discharge Date: 09/15/2016 Hospital Course Course Attending Physician: OMAIRA FUNES MD Primary Care Physician: UNKNOWN Consulting Request: 1 Consulting Specialty: Hematology/Oncology Consulting Request: 2 Consulting Specialty: Cardiology Consulting Physician: Dr. Salmon Reason for Consult: Arrhythmia and Low EF Consulting Request: 3 Consulting Specialty: Infectious Disease Consulting Physician: Dr. Navarrete Reason for Consult: Cellulitis Consulting Request: 4 Consulting Specialty: Nephrology Consulting Physician: Dr. Morejon Reason for Consult: CHARLES, GN Consulting Request: 5 Consulting Specialty: Hematology/Oncology Consulting Physician: Dr. Schmitt Reason for Consult: suspected HIT Consulting Request: 6 Consulting Specialty: Thoracic/Vascular Surgery Consulting Physician: Dr. Coombs Reason for Consult: Pace Maker Placement Hospital Course: 71-year-old man with PMH of atrial fibrillation on Coumadin, CAD status post stents, with varicose veins, hospitalized 3 weeks RETORT FIREMAN after trauma to the right leg requiring 2 units of blood, with persistent swelling, discomfort and discoloration of the right leg since then, self treated persistent leg swelling with Lasix several days prior to admission, admitted on August 23 after presenting to the ED with a diffuse petechial rash that was more localized one week RETORT FIREMAN, with no associated fevers or chills. Pt was initially admitted to general medicine. He was transferred to telemetry from general medicine for close cardiac monitoring while aspirin and warfarin were held pending renal biopsy. While in telemetry the patient developed thrombocytopenia which was assumed to be HIT and because of that he was changed to argatroban, patient was transferred to the ICU for close monitoring. Further evaluation ruled out HIT. During the course of this hospital stay patient demonstrated progressive rapid deterioration of his renal function he was followed by phosphatic fertilizer supervisor and during the stay he required dialysis through an Raul cath. He had multiple episodes of dialysis and he recovered and no longer required dialysis so Raul cath was removed. Per nephro recommendation this patient will be continued on prednisone 60 mg daily until when reviewed by phosphatic fertilizer supervisor for adjustment of medication. During the course of the ICU stay patient had several episodes of syncope, associated with advanced AV block, and heart rates less than 30. Configuration of QRS was a right bundle branch configuration(normally he has a left bundle branch configuration with atrial fibrillation. This patient has cardiomyopathy with left ventricular ejection fraction of 25%, because of all these comorbidities the patient received a permanent pacemaker VVI on September 09. With pacemaker in place and patient improvement he was transferred back to the telemetry floor, however next day after pacemaker placement was noted to develop hematoma within the pacemaker chamber and because of that all anticoagulations were held. No significant increasing hematoma and because of that evacuation was not done. This patient was restarted back on anticoagulation he is subtherapeutic and will continue with low dosing to slowly increase INR to therapeutic range of 2 to 3. Itemized problem list and interventions. Diffuse petechial rash Patient thought to have vasculitis. hypersensitivity vasculitis with acute GN. Marketing Finance Manager would like to do renal biopsy as an outpatient. Through the course of her stay there was significant improvement on the skin rash. He will continue to be followed by phosphatic fertilizer supervisor Dr. Morejon. 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 Patient renal function deteriorated to the point of requiring transient hemodialysis. Renal function improved with decrease of creatinine from highest level 7.9-2.3 just before discharge. Patient will continue with outpatient management by phosphatic fertilizer supervisor Dr. Morejon. Atrial fibrillation (on coumadin at home) CHADVASc score is 4 putting him at mod-high risk for stroke. Patient was continued on his home dose of Coumadin later changed to heparin so that he can be sent for renal biopsy however experience significant drop in platelets for which reason the patient was put on Argatroban. At some point the patient was totally of anticoagulation after developing hematoma in the PPM pocket. However , just before discharge the patient was restarted on Coumadin, continue to monitor INR and dose Coumadin with target INR of 2-3. Hx of asystole with advanced AV block & new RBBB Stat echo 09/08/16: Severely reduced left ventricular systolic function with akinesia of the inferior wall. Mild Aortic regurgitation and mild to moderate Mitral regurgitation with mild pulmonary hypertension. EF 20-25%. s/p pacemaker placement by Dr. Coombs (09/09). Patient will continue to follow with his security business analyst Dr. Koch. Patient had pacemaker placement with hematoma. Now resolved at dsicharge. Patient started on low dose hydralazne and nitrates. Hx of CAD/prior myocardial infarction Patient has mild to moderate left ventricular dysfunction by previous noninvasive imaging, now with severe LV dysfunction Despite the cardiomyopathy he is not a candidate for addition of LISETH-I at this time due to severely impaired renal function. We'll start the patient on low dose Lipitor at 20 mg daily. Cont b freddy 50 mg daily. The phosphatic fertilizer supervisor would like not to start Lasix now and f/u op. Possible Cellulitis of right thigh secondary to lower extremity ulceration Patient presented with cellulitis of the right lower limb. Had significant increasing white count and because of that was started on IV Unasyn. No episode of fever was recorded. Patient was referred by wound care and received exam Xeroform dressing and elevation of the lower limb with improvement. Patient been discharged off antibiotics. Complications: New Right bundle branch block Acute kidney injury requiring hemodialysis Allergies: Coded Allergies: No Known Allergies (09/10/16) Significant Procedures: Pacemaker placement Raul cath placement Hemodialysis Skin biopsy Pertinent Lab Results: Laboratory Tests 09/14 09/13 0620 0848 Chemistry Sodium (137 - 145 mmol/L) 137 139 Potassium (3.5 - 5.1 mmol/L) 5.1 5.3 H Chloride (98 - 107 mmol/L) 109 H 106 Carbon Dioxide (22 - 30 mmol/L) 24 26 Anion Gap (5 - 16) 4 L 7 BUN (9 - 20 mg/dL) 75 H 84 H Creatinine (0.7 - 1.2 mg/dL) 2.3 H 2.3 H Estimated GFR (>60 ml/min) 28 L 28 L BUN/Creatinine Ratio (7 - 25 %) 32.6 H 36.5 H Phosphorus (2.5 - 4.5 mg/dL) 4.3 5.0 H Magnesium (1.6 - 2.3 mg/dL) 1.9 1.9 Coagulation PT (9.4 - 12.5 SEC) 15.4 H 17.0 H INR (0.90 - 1.17) 1.47 H 1.63 H Hematology CBC w Diff MAN DIFF ORDERED NO MAN DIFF REQ WBC (4.8 - 10.8 /CUMM) 24.5 H 20.2 H RBC (4.70 - 6.10 /CUMM) 3.62 L 4.01 L Hgb (14.0 - 18.0 G/DL) 10.5 L 11.6 L Hct (42 - 52 %) 31.9 L 35.3 L MCV (80.0 - 94.0 FL) 88.1 88.1 MCH (27.0 - 31.0 PG) 29.0 28.8 RDW (11.5 - 14.5 %) 15.7 H 15.7 H Plt Count (130 - 400 /CUMM) 74 L 89 L MPV (7.4 - 10.4 FL) 9.6 9.1 Gran % (42.2 - 75.2 %) 92.1 H 87.5 H Lymphocytes % (20.5 - 51.1 %) 2.7 L 4.8 L Monocytes % (1.7 - 9.3 %) 5.2 7.3 Eosinophils % (0 - 5 %) 0 0.1 Basophils % (0.0 - 2.0 %) 0 L 0.3 Absolute Granulocytes (1.4 - 6.5 /CUMM) 22.6 H 17.6 H Absolute Lymphocytes (1.2 - 3.4 /CUMM) 0.7 L 1.0 L Absolute Monocytes (0.10 - 0.60 /CUMM) 1.3 H 1.5 H Absolute Eosinophils (0.0 - 0.7 /CUMM) 0 0 Absolute Basophils (0.0 - 0.2 /CUMM) 0 0.1 Platelet Estimate (ADEQUATE) DECREASED Hypochromic-Microcytic 2+ Poikilocytosis 1+ Anisocytosis 1+ Ovalocytes 1+ PUBS MCHC (33.0 - 37.0 G/DL) 32.9 L 32.7 L 09/12 09/12 09/12 1230 0950 0914 Chemistry Magnesium Cancelled Coagulation PT Cancelled INR Cancelled APTT Cancelled Hematology CBC w Diff Cancelled WBC Cancelled RBC Cancelled Hgb Cancelled Hct Cancelled MCV Cancelled MCH Cancelled RDW Cancelled Plt Count Cancelled MPV Cancelled PUBS MCHC Cancelled 09/12 09/11 09/11 0430 1626 1620 Chemistry Sodium (137 - 145 mmol/L) 142 Potassium (3.5 - 5.1 mmol/L) 5.6 H Chloride (98 - 107 mmol/L) 107 Carbon Dioxide (22 - 30 mmol/L) 30 Anion Gap (5 - 16) 6 BUN (9 - 20 mg/dL) 94 H Creatinine (0.7 - 1.2 mg/dL) 2.6 H Estimated GFR (>60 ml/min) 24 L BUN/Creatinine Ratio (7 - 25 %) 36.2 H Phosphorus (2.5 - 4.5 mg/dL) 6.0 H Magnesium (1.6 - 2.3 mg/dL) 2.0 Coagulation PT (9.4 - 12.5 SEC) 19.7 H Cancelled 19.8 H INR (0.90 - 1.17) 1.89 H Cancelled 1.90 H APTT (25 - 37 SEC) > 120 *H 84 H Hematology CBC w Diff MAN DIFF ORDERED WBC (4.8 - 10.8 /CUMM) 17.5 H RBC (4.70 - 6.10 /CUMM) 3.86 L Hgb (14.0 - 18.0 G/DL) 11.1 L Hct (42 - 52 %) 34.1 L MCV (80.0 - 94.0 FL) 88.5 MCH (27.0 - 31.0 PG) 28.8 RDW (11.5 - 14.5 %) 15.4 H Plt Count (130 - 400 /CUMM) 100 L MPV (7.4 - 10.4 FL) 9.3 Gran % (42.2 - 75.2 %) 88.8 H Lymphocytes % (20.5 - 51.1 %) 3.8 L Monocytes % (1.7 - 9.3 %) 7.1 Eosinophils % (0 - 5 %) 0.3 Basophils % (0.0 - 2.0 %) 0 L Absolute Granulocytes (1.4 - 6.5 /CUMM) 15.5 H Segmented Neutrophils (42.2 - 75.2 %) 95 H Absolute Lymphocytes (1.2 - 3.4 /CUMM) 0.7 L Lymphocytes (20.5 - 51.1 %) 2 L Monocytes (1.7 - 9.3 %) 3 Absolute Monocytes (0.10 - 0.60 /CUMM) 1.3 H Absolute Eosinophils (0.0 - 0.7 /CUMM) 0 Absolute Basophils (0.0 - 0.2 /CUMM) 0 Platelet Estimate (ADEQUATE) DECREASED Poikilocytosis 1+ Ovalocytes 2+ PUBS MCHC (33.0 - 37.0 G/DL) 32.6 L Disposition Summary Disposition Principal Diagnosis: Acute kidney injury Systolic CHF NYHA class 3, Reduced ejection fraction to 25% New right bundle branch block with pauses requiring permanent pacemaker hypersensitivity vasculitis with acute GN ESRD requiring dialysis now OFF Afib on b freddy and couamdin hypertension rash from vasculitis. Additional Diagnosis: History of fibrillation Hypertension Hyperlipidemia Discharge Disposition: SNF Discharge Instructions General Discharge Information Code Status: Do Not Resucitate/Intubat Patient's Diet: Heart health diet Patient's Activity: As tolerated Follow-Up Instructions/Appts: Please call and make a follow-up with her phosphatic fertilizer supervisor Dr. Morejon within 1 week after discharge she needs to follow-up skin biopsy results. Please call and make a follow-up with her primary care physician within one week after discharge. Please call and make a follow-up with your security business analyst Dr. Tay within 1 week after discharge Please continue to take your Coumadin and follow-up INR as instructed. Medications at Discharge Discharge Medications: Continue taking these medications: Metoprolol Tartrate (Metoprolol Tartrate) 50 MG TABLET 1 Tablet ORAL DAILY Qty = 180 Comments: PER PT MD DECREASED FROM 50MG PO BID TO 50MG DAILY Warfarin Sodium (Warfarin Sodium) 5 MG TABLET 0.5 Tablet ORAL 5 PM Qty = 90 Instructions: Please check your INR regularly to keep in between 2-3. Comments: Mon NOT GIVEN IN HOSPITAL Warfarin Sodium (Warfarin Sodium) 5 MG TABLET 1 Tablet ORAL 5 PM Qty = 90 Instructions: Please check your INR regularly to keep it in between 2-3. Comments: SUN TUE THUR FRI SAT NOT GIVEN IN HOSPITAL Aspirin (Aspirin*) 81 MG TAB.CHEW 81 Milligram ORAL DAILY Comments: NOT GIVEN IN HOSPTIAL Multivit-Min/FA/Lycopen/Lutein (Centrum Silver Men Tablet) 300 MCG-600 MCG-300 MCG TABLET 1 Tablet ORAL DAILY Comments: PER PT Start taking the following new medications: Omeprazole (Omeprazole) 20 MG CAPSULE.DR 40 Milligram ORAL DAILY BEFORE BREAKFAST Qty = 30 No Refills Prednisone (Prednisone) 20 MG TABLET 60 Milligram ORAL DAILY Qty = 30 No Refills Atorvastatin Calcium (Atorvastatin Calcium) 20 MG TABLET 20 Milligram ORAL 5 PM Days = 30 No Refills Hydralazine HCl (Hydralazine HCl) 25 MG TABLET 25 Milligram ORAL TWICE DAILY Qty = 30 No Refills Isosorbide Mononitrate (Isosorbide Mononitrate ER) 30 MG TAB.ER.24H 30 Milligram ORAL DAILY Qty = 30 No Refills Copies To: ALEXI BAKER,ULICES Cervantes; HUI BAKER,JAYLAN Salinas; JUAN BAKER,JENNIFER; CARLOS BAKER,YURI Zhou; KARLA BAKER,JAYESH Rogers; JULIO BAKER,ETHAN Feldman JR Attending MD Review Statement Documenting Attending: MARIN BAKER,OMAIRA
--- NOTE | 2016-09-13 16:10 | INTERVENTIONAL RADIOLOGY RPT ---
CLINICAL HISTORY: This patient is a 71-year-old male with history of renal failure, who requires removal of a tunneled dialysis catheter as the catheter is no longer needed. PROCEDURES: 1. Removal of central venous catheter. PHYSICIANS: Dr. Hernandez Saldana (attending). The attending radiologist was present during the procedure and related imaging, and reviewed the report. MEDICATIONS: None COMPLICATIONS: None. ESTIMATED BLOOD LOSS: <1 mL. SPECIMENS: None. CONTRAST: None. FLUOROSCOPY TIME: None. PROCEDURE NOTE: Informed consent was obtained from the patient prior to the procedure. During this process, the procedure and potential alternatives were explained along with the intended outcome and benefits. The risks of the procedure, including the possibility of an unsuccessful procedure, as well as the risk of not doing the procedure, were discussed. The patient was given the opportunity to ask questions regarding the procedure and appeared competent to make decisions. A signed consent form documenting this discussion was placed in the medical record. A time-out procedure was performed. The patient was placed supine on the stretcher. The catheter entry site was prepped and draped in the usual sterile fashion. The catheter was removed using traction and blunt dissection. The cuff was removed with the catheter. Direct pressure was applied at the venotomy site and along the tunnel until hemostasis was achieved. The exit site of the tunnel was covered with skin adhesive. FINDINGS: The exit site of the catheter tunnel was non- erythematous and non- tender. IMPRESSION: Successful removal of the tunneled central venous catheter in the right chest. PLAN: 1. The patient was stable after the procedure and will be transferred back to his medical room 2. The patient was instructed regarding wound care. 3. The patient is instructed to present to the emergency room or interventional radiology should the site bleed or if there are new signs of systemic or local infection. Otherwise, the patient will follow up with their primary care physician if indicated.
[2016-09-13 16:31] VITALS: BP 148/92
[2016-09-13 22:27] VITALS: BP 112/76
--- NOTE | 2016-09-14 06:17 | PN- Housestaff ---
JAMIN BAKER,JOSESITO 09/14/16 0617: Subjective Follow-up For: CHARLES Petechial rash Asystole s/p pacemaker placement Afib Tele-Events Since Last Visit: Afib, HR 60-90s Subjective: Patient is seen and examined at bedside. No new complaints. Denies any pain today. He reports itchiness persists. Denies any f/c, headache, dyspnea, chest pain, palpitations, n/v/, dizziness/lightheadedness. No events reported overnight. Review of Systems Constitutional: Reports: see HPI. Objective Last 24 Hrs of Vital Signs/I&O Vital Signs Date Time Temp Pulse Resp B/P Pulse O2 O2 Flow FiO2 Ox Delivery Rate 09/14 0942 86 132/70 09/14 0800 98.8 86 20 132/70 9 Room Air 09/13 2227 98.7 86 20 112/76 96 Room Air 09/13 1631 97.7 78 18 148/92 97 Room Air 09/13 1217 110/70 Intake & Output 09/14 1600 09/14 0800 09/14 0000 Intake Total 480 480 Output Total 140 900 800 Balance -140 -420 -320 Intake, Oral 480 480 Number 0 0 Bowel Movements Output, Urine 140 900 800 Patient 100.811 kg Weight Physical Exam General Appearance: Alert, Oriented X3, Cooperative, No Acute Distress Other Physical Findings: Skin: purpuric lesions on both lower extremities dry skin, stable hematoma around the pacemmaker placement site on the left chest extending to the prox LUE HEENT: Atraumatic Cardiovascular: irregular rate Lungs: Clear to Auscultation, Normal Air Movement Abdomen: Normal Bowel Sounds, Soft, No Tenderness Neurological: Normal Speech Extremities: Trace edema Current Medications: Current Medications Sig/Dagoberto Start time Last Medication Dose Route Stop Time Status Admin Acetaminophen 650 MG Q6P PRN 08/23 2345 AC 09/07 PO 2045 Bisacodyl 10 MG DAILY PRN 09/12 1400 AC 09/14 LA 0941 Bisacodyl 5 MG DAILY 08/27 1358 AC 09/14 PO 0941 Cholecalciferol 1,000 IU DAILY 08/29 1046 AC 09/14 PO 0942 Fluticasone 2 SPRAY DAILY 09/09 1045 AC 09/14 Propionate KATHARINE 0941 Folic Acid 1 MG DAILY 08/24 1000 AC 09/14 PO 0941 Guaifenesin 10 ML Q6P PRN 08/26 1530 AC 09/09 PO 0903 Magnesium Chloride 64 MG ONCE ONE 09/14 1000 DC PO 09/14 1001 Magnesium Chloride 64 MG ONCE ONE 09/13 1215 DC 09/13 PO 09/13 1216 1618 Melatonin 5 MG AT BEDTIME 09/08 2200 AC 09/13 PO 2141 Metoprolol Succinate 100 MG DAILY 09/09 1730 AC 09/14 PO 0942 Multivitamins 1 TAB DAILY 08/24 1000 AC 09/14 PO 0942 Omeprazole 40 MG DAILY AC 08/29 1045 AC 09/14 PO 0620 Oxycodone/ 1 TAB Q4-6 PRN PRN 09/09 1630 AC Acetaminophen PO Oxycodone/ 2 TAB Q4-6 PRN PRN 09/09 1630 AC Acetaminophen PO Patient Medication 1 ED .STK-MED ONE 09/13 1354 TX Teaching ED 09/13 1355 Phenol 2 SPRAY Q2P PRN 08/30 0900 AC 09/09 EXT 0903 Polyethylene Glycol 17 GM DAILY 08/27 1358 AC 09/14 PO 0941 Prednisone 60 MG DAILY 09/01 1000 AC 09/14 PO 0941 Senna/Docusate Sodium 2 TAB DAILY 09/13 1000 AC 09/14 PO 0942 Thiamine HCl 100 MG DAILY 08/24 1000 AC 09/14 PO 0942 Last 24 Hrs of Lab/Hemal Results Last 24 Hrs of Labs/Mics: Laboratory Tests 09/14/16 0620: Anion Gap 4 L, Estimated GFR 28 L, BUN/Creatinine Ratio 32.6 H, Phosphorus 4.3, Magnesium 1.9, PT 15.4 H, INR 1.47 H, CBC w Diff MAN DIFF ORDERED, RBC 3.62 L, MCV 88.1, MCH 29.0, RDW 15.7 H, MPV 9.6, Gran % 92.1 H, Lymphocytes % 2.7 L, Monocytes % 5.2, Eosinophils % 0, Basophils % 0 L, Absolute Granulocytes 22.6 H, Absolute Lymphocytes 0.7 L, Absolute Monocytes 1.3 H, Absolute Eosinophils 0, Absolute Basophils 0, Platelet Estimate DECREASED, Hypochromic-Microcytic 2+, Poikilocytosis 1+, Anisocytosis 1+, Ovalocytes 1+, PUBS MCHC 32.9 L Assessment/Plan Assessment: 71-year-old man with PMH of atrial fibrillation on Coumadin, CAD status post stents, with varicose veins, hospitalized 3 weeks SLUBBER TENDER after trauma to the right leg requiring 2 units of blood, with persistent swelling, discomfort and discoloration of the right leg since then, self treated persistent leg swelling with Lasix several days prior to admission, prseneted to ED on August 23 with a diffuse petechial rash that was more localized one week SLUBBER TENDER, with no associated fevers or chills. # Diffuse petechial rash Most likely ddx at this point is Henoch-Schnlein purpura which needs to be confirmed on renal biopsy. Patient has petechial rash in all extremities, first noted one week prior to admission, with persistent ecchymosis, edema and mild discomfort of the right leg. Subsequently developed CHARLES and hyperkalemia with microscopic hematuria. Also associated with cough with hemoptysis (not likely to be pulmonary based on chest ct). Elevated ESR 36, CRP >15, RF 13.9. Negative hepatitis panel, HIV, MARTIN, ANCA, cryoglobulin. Normal C3 and C4. 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 * Check BEP daily, trend Cr - stable * Removed the dialysis cath on 09/13 as per nephro # Atrial fibrillation (on coumadin at home) - CHADVASc score is 4 putting him at mod-high risk for stroke, on ArgatrobanCoumadin on hold due to possible renal biopsy * Resume warfarin as per cardio/nephro rec (contacted sales representative raw fibers Dr. Schmitt who also said starting warfarin would be okay although patient is thrombocytopenic as his platelets has been fluctuating and warfarin will not lower the plat count) # Hx of asystole with advanced av block & new RBBB - Stat echo 09/08/16: Severely reduced left ventricular systolic function with akinesia of the inferior wall. Mild Aortic regurgitation and mild to moderate Mitral regurgitation with mild pulmonary hypertension. EF 20-25% * s/p pacemaker placement by Dr. Coombs (09/09) * Hold heparin drip in the setting of hematoma in the pacemaker site * Cont metoprolol 100mg PO daily. # Constipation * Cont bowel regimen and suppository as needed # Hx of CAD/prior myocardial infarction with mild to moderate left ventricular dysfunction by previous noninvasive imaging, now with severe LV dysfunction - Despite the cardiomyopathy he is not a candidate for addition of LISETH-I at this time * Restart aspirin 81 mg when medically cleared * Cardio recommend adding low-dose Lipitor 20 mg by mouth daily when medically cleared # One episode of NSVT on telemetry, chronic LBBB (resolved) * Cont Toprol XL 100 mg daily, # Hx of HTN * Continue antihypertensive medication # Possible Cellulitis of right thigh secondary to lower extremity ulceration - X-ray of the right tibia/fibula negative. - Doppler of the right lower extremity negative * ID input appreciated * Cont to monitor off antibiotics * Wound consult appreciated * Monitor WBC * Xeroform and leg elevation above his heart Diet: renal dialysis diet DVT ppx: supratherapeutic INR DNR/DNI In the event of any changes or updates please contact his son Paulo at or [id number] Sandra who is a hospice nurse at [phone] Problem List: 1. Atrial fibrillation 2. Acute kidney injury 3. Petechial rash 4. Glomerulonephritis 5. 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 Henoch-Schonlein purpura 8. AV block 9. Thrombocytopenia affecting 10. Thrombocytopenia Pain Ratin Pain Location: 0 Pain Goal: Remain pain free Pain Plan: Mild path Tomorrow's Labs & Rationales: BEP to check renal fx INR monitoring Consulting Request: Consulting Specialty: Hematology/Oncology OMAIRA FUNES 09/14/16 1007: Attending MD Review Statement Attending Statement Attending MD Statement: examined this patient, discuss w/resident/PA/SENIOR GENETIC COUNSELOR, agreed w/resident/PA/SENIOR GENETIC COUNSELOR, discussed with family, reviewed EMR data (avail), discussed with nursing, discussed with case mgmt, reviewed images Attending Assessment/Plan: 71 o/m with multiple medical problems as documented above is awaiting renal biopsy which could be done as outpatient , cardiology following , tolerating b freddy, low EF not candidate of liseth inhibitor 2/2 acute kidney injury needing dialysis. Check with nephrology in future if able to start LISETH inhibitor in systolic chf NYHA 3. Also plan to start lasix low dose as per cardiology if ok with nephrology. Patient found to have hematoama at pacemaker site. Cardiology recommend to stop heparin drip and monitor hematoma. In case it worsens they will evacuate pocket. Hematolgoy notes reviewed, negative US LUE r/o DVT for SAEID swelling. Patient explained risks/benefits of anticoagualiton in this scenario and patient agrees to plan. Resume a/c today evening and monitor INR and hematoma as per hematology/surgery. Monitor patient closely. Call me if any changes.
[2016-09-14 07:56] LABS: ABSOLUTE BASOPHIL COUNT 0 /CUMM (0.0-0.2); ABSOLUTE EOSINOPHIL COUNT 0 /CUMM (0.0-0.7); ABSOLUTE GRANULOCYTE CT 22.6 /CUMM (1.4-6.5); ABSOLUTE LYMPH COUNT 0.7 /CUMM (1.2-3.4); ABSOLUTE MONOCYTE COUNT 1.3 /CUMM (0.10-0.60); BASOPHIL % 0 % (0.0-2.0); EOSINOPHIL % 0 % (0-5); GRANULOCYTE % 92.1 % (42.2-75.2); HEMATOCRIT 31.9 % (42-52); MEAN CORPUSCULAR HGB CONC 32.9 G/DL (33.0-37.0); MEAN CORPUSCULAR VOLUME 88.1 FL (80.0-94.0); MEAN PLATELET VOLUME 9.6 FL (7.4-10.4); PLATELET COUNT 74 /CUMM (130-400); RBC DISTRIBUTION WIDTH 15.7 % (11.5-14.5); RED BLOOD CELL CT 3.62 /CUMM (4.70-6.10); WHITE BLOOD CELL COUNT 24.5 /CUMM (4.8-10.8)
[2016-09-14 08:00] VITALS: BP 132/70
[2016-09-14 08:16] LABS: PT 15.4 SEC (9.4-12.5)
--- NOTE | 2016-09-14 10:54 | PN- Nephrology ---
Assessment/Plan Assessment: 1. 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 ? HS purpura vs hypersensitivity vasculitis w acute GN --> skin IF still pending Needs to continue steroids 2. Thrombocytopenia: ? etiology; w/u HIT negative Suggestion: 1. Continue current prednisone 2. Warfarin for A fib 3. Heme f/u re thrombocytopenia 4. Discharge planning: will need outpt f/u our office w Dr Morejon 2-4 weeks Subjective Subjective: Feeling well w/o uremic sx or SOB IJ HD cath out Nonoliguric Thrombocytopenia worsening Anxious for d/c to rehab Objective Vital Signs and I&Os Vital Signs Date Time Temp Pulse Resp B/P Pulse O2 O2 Flow FiO2 Ox Delivery Rate 09/14 0942 86 132/70 09/14 0800 98.8 86 20 132/70 9 Room Air 09/13 2227 98.7 86 20 112/76 96 Room Air 09/13 1631 97.7 78 18 148/92 97 Room Air 09/13 1217 110/70 Intake & Output 09/14 1600 09/14 0400 09/13 1600 09/13 0400 09/12 1600 09/12 0400 Intake Total 281 123 3368 420 782 448 Output Total 6307 750 4044 975 1400 975 Balance -560 -320 -90 -555 -618 -527 Intake, IV 20 182 208 Intake, Oral 416 127 4553 400 600 240 Number 0 0 2 0 0 Bowel Movements Output, Urine 6089 858 8089 975 1400 975 Patient 222 lb 222 lb 220 lb Weight Physical Exam General Appearance: no apparent distress, alert Head: atraumatic, normal appearance Ears, Nose, Throat: normal ENT inspection Neck: L subclavian pacer wound Respiratory: no respiratory distress, quiet respiration, lungs clear Cardiovascular: regular rate/rhythm, friction rub (none heard) Abdomen: soft, non-tender, no organomegaly Extremities: swelling Current Medications: Current Medications Sig/Dagoberto Start time Last Medication Dose Route Stop Time Status Admin Acetaminophen 650 MG Q6P PRN 08/23 2345 AC 09/07 PO 204 Bisacodyl 10 MG DAILY PRN 09/12 1400 AC 09/14 NE 0941 Bisacodyl 5 MG DAILY 08/27 1358 AC 09/14 PO 0941 Cholecalciferol 1,000 IU DAILY 08/29 1046 AC 09/14 PO 0942 Fluticasone 2 SPRAY DAILY 09/09 1045 AC 09/14 Propionate KATHARINE 0941 Folic Acid 1 MG DAILY 08/24 1000 AC 09/14 PO 0941 Guaifenesin 10 ML Q6P PRN 08/26 1530 AC 09/09 PO 0903 Magnesium Chloride 64 MG ONCE ONE 09/14 1000 DC PO 09/14 1001 Magnesium Chloride 64 MG ONCE ONE 09/13 1215 DC 09/13 PO 09/13 1216 1618 Melatonin 5 MG AT BEDTIME 09/08 2200 AC 09/13 PO 2141 Metoprolol Succinate 100 MG DAILY 09/09 1730 AC 09/14 PO 0942 Multivitamins 1 TAB DAILY 08/24 1000 AC 09/14 PO 0942 Omeprazole 40 MG DAILY AC 08/29 1045 AC 09/14 PO 0620 Oxycodone/ 1 TAB Q4-6 PRN PRN 09/09 1630 AC Acetaminophen PO Oxycodone/ 2 TAB Q4-6 PRN PRN 09/09 1630 AC Acetaminophen PO Patient Medication 1 ED .STK-MED ONE 09/13 1354 TN Teaching ED 09/13 1355 Phenol 2 SPRAY Q2P PRN 08/30 0900 AC 09/09 EXT 0903 Polyethylene Glycol 17 GM DAILY 08/27 1358 AC 09/14 PO 0941 Prednisone 60 MG DAILY 09/01 1000 AC 09/14 PO 0941 Senna/Docusate Sodium 2 TAB DAILY 09/13 1000 AC 09/14 PO 0942 Thiamine HCl 100 MG DAILY 08/24 1000 AC 09/14 PO 0942 Warfarin Sodium 2.5 MG COUMADIN 1700 ONE 09/14 1700 AC PO 09/14 1701 Results Pertinent Lab Results: Laboratory Tests 09/14 09/13 0620 0848 Chemistry Sodium (137 - 145 mmol/L) 137 139 Potassium (3.5 - 5.1 mmol/L) 5.1 5.3 H Chloride (98 - 107 mmol/L) 109 H 106 Carbon Dioxide (22 - 30 mmol/L) 24 26 Anion Gap (5 - 16) 4 L 7 BUN (9 - 20 mg/dL) 75 H 84 H Creatinine (0.7 - 1.2 mg/dL) 2.3 H 2.3 H Estimated GFR (>60 ml/min) 28 L 28 L BUN/Creatinine Ratio (7 - 25 %) 32.6 H 36.5 H Phosphorus (2.5 - 4.5 mg/dL) 4.3 5.0 H Magnesium (1.6 - 2.3 mg/dL) 1.9 1.9 Coagulation PT (9.4 - 12.5 SEC) 15.4 H 17.0 H INR (0.90 - 1.17) 1.47 H 1.63 H Hematology CBC w Diff MAN DIFF ORDERED NO MAN DIFF REQ WBC (4.8 - 10.8 /CUMM) 24.5 H 20.2 H RBC (4.70 - 6.10 /CUMM) 3.62 L 4.01 L Hgb (14.0 - 18.0 G/DL) 10.5 L 11.6 L Hct (42 - 52 %) 31.9 L 35.3 L MCV (80.0 - 94.0 FL) 88.1 88.1 MCH (27.0 - 31.0 PG) 29.0 28.8 RDW (11.5 - 14.5 %) 15.7 H 15.7 H Plt Count (130 - 400 /CUMM) 74 L 89 L MPV (7.4 - 10.4 FL) 9.6 9.1 Gran % (42.2 - 75.2 %) 92.1 H 87.5 H Lymphocytes % (20.5 - 51.1 %) 2.7 L 4.8 L Monocytes % (1.7 - 9.3 %) 5.2 7.3 Eosinophils % (0 - 5 %) 0 0.1 Basophils % (0.0 - 2.0 %) 0 L 0.3 Absolute Granulocytes (1.4 - 6.5 /CUMM) 22.6 H 17.6 H Absolute Lymphocytes (1.2 - 3.4 /CUMM) 0.7 L 1.0 L Absolute Monocytes (0.10 - 0.60 /CUMM) 1.3 H 1.5 H Absolute Eosinophils (0.0 - 0.7 /CUMM) 0 0 Absolute Basophils (0.0 - 0.2 /CUMM) 0 0.1 Platelet Estimate (ADEQUATE) DECREASED Hypochromic-Microcytic 2+ Poikilocytosis 1+ Anisocytosis 1+ Ovalocytes 1+ PUBS MCHC (33.0 - 37.0 G/DL) 32.9 L 32.7 L 09/12 09/12 09/12 1230 0950 0914 Chemistry Magnesium Cancelled Coagulation PT Cancelled INR Cancelled APTT Cancelled Hematology CBC w Diff Cancelled WBC Cancelled RBC Cancelled Hgb Cancelled Hct Cancelled MCV Cancelled MCH Cancelled RDW Cancelled Plt Count Cancelled MPV Cancelled PUBS MCHC Cancelled 09/12 09/11 09/11 0430 1626 1620 Chemistry Sodium (137 - 145 mmol/L) 142 Potassium (3.5 - 5.1 mmol/L) 5.6 H Chloride (98 - 107 mmol/L) 107 Carbon Dioxide (22 - 30 mmol/L) 30 Anion Gap (5 - 16) 6 BUN (9 - 20 mg/dL) 94 H Creatinine (0.7 - 1.2 mg/dL) 2.6 H Estimated GFR (>60 ml/min) 24 L BUN/Creatinine Ratio (7 - 25 %) 36.2 H Phosphorus (2.5 - 4.5 mg/dL) 6.0 H Magnesium (1.6 - 2.3 mg/dL) 2.0 Coagulation PT (9.4 - 12.5 SEC) 19.7 H Cancelled 19.8 H INR (0.90 - 1.17) 1.89 H Cancelled 1.90 H APTT (25 - 37 SEC) > 120 *H 84 H Hematology CBC w Diff MAN DIFF ORDERED WBC (4.8 - 10.8 /CUMM) 17.5 H RBC (4.70 - 6.10 /CUMM) 3.86 L Hgb (14.0 - 18.0 G/DL) 11.1 L Hct (42 - 52 %) 34.1 L MCV (80.0 - 94.0 FL) 88.5 MCH (27.0 - 31.0 PG) 28.8 RDW (11.5 - 14.5 %) 15.4 H Plt Count (130 - 400 /CUMM) 100 L MPV (7.4 - 10.4 FL) 9.3 Gran % (42.2 - 75.2 %) 88.8 H Lymphocytes % (20.5 - 51.1 %) 3.8 L Monocytes % (1.7 - 9.3 %) 7.1 Eosinophils % (0 - 5 %) 0.3 Basophils % (0.0 - 2.0 %) 0 L Absolute Granulocytes (1.4 - 6.5 /CUMM) 15.5 H Segmented Neutrophils (42.2 - 75.2 %) 95 H Absolute Lymphocytes (1.2 - 3.4 /CUMM) 0.7 L Lymphocytes (20.5 - 51.1 %) 2 L Monocytes (1.7 - 9.3 %) 3 Absolute Monocytes (0.10 - 0.60 /CUMM) 1.3 H Absolute Eosinophils (0.0 - 0.7 /CUMM) 0 Absolute Basophils (0.0 - 0.2 /CUMM) 0 Platelet Estimate (ADEQUATE) DECREASED Poikilocytosis 1+ Ovalocytes 2+ PUBS MCHC (33.0 - 37.0 G/DL) 32.6 L
--- NOTE | 2016-09-14 12:17 | PN- Cardiology ---
Subjective Subjective: Patient doing well today. No pain at the pacemaker site. Objective Vital Signs and I&Os Vital Signs Date Time Temp Pulse Resp B/P Pulse O2 O2 Flow FiO2 Ox Delivery Rate 09/14 1105 Room Air Room Air 09/14 0942 86 132/70 09/14 0800 98.8 86 20 132/70 9 Room Air 09/13 2227 98.7 86 20 112/76 96 Room Air 09/13 1631 97.7 78 18 148/92 97 Room Air 09/13 1217 110/70 Intake & Output 09/14 1600 09/14 0800 09/14 0000 09/13 1600 09/13 0800 09/13 0000 Intake Total 480 480 480 680 420 Output Total 140 900 800 450 800 975 Balance -140 -420 -320 30 -120 -555 Intake, IV 20 Intake, Oral 480 480 480 680 400 Number 0 0 2 Bowel Movements Output, Urine 140 900 800 450 800 975 Patient 222 lb 222 lb Weight Physical Exam: General: no apparent distress. Alert. Eyes: No obvious scleral icterus. HEENT: No jugular venous distention. Cardiovascular: Normal intensity S1/S2. Irregular. Left-sided pacemaker site soft with ecchymosis. Respiratory: no rales or ronchi Abdomen: no guarding or rebound tenderness. Musculoskeletal: No clubbing or cyanosis noted, LE edema bilaterally Skin: Rash noted, warm Neurologic: No gross focal deficits noted. Current Medications: Current Medications Sig/Dagoberto Start time Last Medication Dose Route Stop Time Status Admin Acetaminophen 650 MG Q6P PRN 08/23 2345 AC 09/07 PO 2045 Bisacodyl 10 MG DAILY PRN 09/12 1400 AC 09/14 [place] 0941 Bisacodyl 5 MG DAILY 08/27 1358 AC 09/14 PO 0941 Cholecalciferol 1,000 IU DAILY 08/29 1046 AC 09/14 PO 0942 Fluticasone 2 SPRAY DAILY 09/09 1045 AC 09/14 Propionate KATHARINE 0941 Folic Acid 1 MG DAILY 08/24 1000 AC 09/14 PO 0941 Guaifenesin 10 ML Q6P PRN 08/26 1530 AC 09/09 PO 0903 Magnesium Chloride 64 MG ONCE ONE 09/14 1000 DC 09/14 PO 09/14 1001 1207 Magnesium Chloride 64 MG ONCE ONE 09/13 1215 DC 09/13 PO 09/13 1216 1618 Melatonin 5 MG AT BEDTIME 09/08 2200 AC 09/13 PO 2141 Metoprolol Succinate 100 MG DAILY 09/09 1730 AC 09/14 PO 0942 Multivitamins 1 TAB DAILY 08/24 1000 AC 09/14 PO 0942 Omeprazole 40 MG DAILY AC 08/29 1045 AC 09/14 PO 0620 Oxycodone/ 1 TAB Q4-6 PRN PRN 09/09 1630 AC Acetaminophen PO Oxycodone/ 2 TAB Q4-6 PRN PRN 09/09 1630 AC Acetaminophen PO Patient Medication 1 ED .STK-MED ONE 09/13 1354 ID Teaching ED 09/13 1355 Phenol 2 SPRAY Q2P PRN 08/30 0900 AC 09/09 EXT 0903 Polyethylene Glycol 17 GM DAILY 08/27 1358 AC 09/14 PO 0941 Prednisone 60 MG DAILY 09/01 1000 AC 09/14 PO 0941 Senna/Docusate Sodium 2 TAB DAILY 09/13 1000 AC 09/14 PO 0942 Thiamine HCl 100 MG DAILY 08/24 1000 AC 09/14 PO 0942 Warfarin Sodium 2.5 MG COUMADIN 1700 ONE 09/14 1700 AC PO 09/14 1701 Results Last 48 Hrs of Labs/Mics: Laboratory Tests 09/14/16 0620: Anion Gap 4 L, Estimated GFR 28 L, BUN/Creatinine Ratio 32.6 H, Phosphorus 4.3, Magnesium 1.9, PT 15.4 H, INR 1.47 H, CBC w Diff MAN DIFF ORDERED, RBC 3.62 L, MCV 88.1, MCH 29.0, RDW 15.7 H, MPV 9.6, Gran % 92.1 H, Lymphocytes % 2.7 L, Monocytes % 5.2, Eosinophils % 0, Basophils % 0 L, Absolute Granulocytes 22.6 H, Absolute Lymphocytes 0.7 L, Absolute Monocytes 1.3 H, Absolute Eosinophils 0, Absolute Basophils 0, Platelet Estimate DECREASED, Hypochromic-Microcytic 2+, Poikilocytosis 1+, Anisocytosis 1+, Ovalocytes 1+, PUBS MCHC 32.9 L 09/13/16 0848: Anion Gap 7, Estimated GFR 28 L, BUN/Creatinine Ratio 36.5 H, Phosphorus 5.0 H, Magnesium 1.9, PT 17.0 H, INR 1.63 H, CBC w Diff NO MAN DIFF REQ, RBC 4.01 L, MCV 88.1, MCH 28.8, RDW 15.7 H, MPV 9.1, Gran % 87.5 H, Lymphocytes % 4.8 L, Monocytes % 7.3, Eosinophils % 0.1, Basophils % 0.3, Absolute Granulocytes 17.6 H, Absolute Lymphocytes 1.0 L, Absolute Monocytes 1.5 H, Absolute Eosinophils 0, Absolute Basophils 0.1, PUBS MCHC 32.7 L 09/12/16 1230: APTT Cancelled Recent Imaging Studies: Telemetry tracings were personally reviewed show atrial fibrillation with occasional ventricular pacing Assessment/Plan Assessment/Plan 1. 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 Persistent atrial fibrillation on anticoagulation with Coumadin on hold 3. History of coronary artery disease/prior myocardial infarction with mild to moderate left ventricular dysfunction by previous noninvasive imaging, now with severe LV dysfunction 4. NSVT on telemetry 5. Small bilateral pleural effusions 6. Chronic left bundle branch block 7. Hx HTN 8. Venous insufficiency 9. Thrombocytopenia 10. Prolonged pauses, s/p MRI compatible single lead permanent pacemaker 09/09/16 Small pacemaker hematoma has resolved. Initiate low-dose Coumadin with target INR 2-3. Management of thrombocytopenia per hematology and medical team. Would likely be a candidate for low-dose LISETH inhibitor therapy in the future if okay with nephrology. Consider starting on low-dose daily oral Lasix as the patient is no longer undergoing dialysis if okay with nephrology. Recommend initiating the patient on low-dose daily statin therapy given the history of ischemic cardiomyopathy. Continue on metoprolol XL 100 mg by mouth daily. If no improvement in ejection fraction in the future despite cardiac optimization he may be a candidate for upgrade to biventricular AICD. Jonh Stanley MD [facility] Continue telemetry? No
--- NOTE | 2016-09-14 13:21 | RADIOLOGY REPORT ---
EXAMINATION: XR PORTABLE CHEST CLINICAL INFORMATION: Bilateral wheezes and increased respiratory effort. Compared with prior bilateral pleural effusions. COMPARISON: Chest x-ray 09/09/2016. TECHNIQUE: Portable AP view of the chest was obtained. FINDINGS: There is persistent elevation of the right hemidiaphragm, and there may be a small right-sided pleural effusion. The right lung is hypoexpanded, but similar compared to the prior study. The left lung is well-aerated and appears clear. There are no pneumothoraces. The cardiac silhouette is normal. The central pulmonary vasculature is normal. There has been interval removal of the right internal jugular hemodialysis catheter. The left chest pacer with single lead is unchanged. IMPRESSION: 1. There is persistent elevation of the right hemidiaphragm, and there may be a small pleural effusion. 2. There is no focal consolidation.
--- NOTE | 2016-09-14 15:35 | Patient Discharge Instructions ---
Discharge Instructions General Discharge Information You were seen/treated for: Acute kidney failure Skin leukocytoclastic vasculitis Asystole status post pacemaker placement Atrial fibrillation You had these procedures: Pacermaker implantation Skin biopsy Watch for these problems: Fever, chills, worsening rash Special Instructions: Please call and make a follow-up with general farmer Dr. Morejon within 2-4 weeks following discharge she needs to follow-up skin biopsy results. Please call and make a follow-up with primary care physician within one week after discharge. Please call and make a follow-up with your nursing faculty Dr. Tay within 1 week after discharge Please continue to take your Coumadin and follow-up INR as instructed. Please follow up with event decorator and designer Dr. Jensen within 2 weeks. You will need a follow up for the nonspecific lung nodules in 3-6 months. Diet Continue normal diet: Yes Recommended Diet: Heart Healthy Activity Full Activity/No Limits: Yes (as tolerated) Acute Coronary Syndrome Inclusion Criteria At DC or during hospital stay patient has or had the following: ACS DIAGNOSIS No Discharge Core Measures Meds if any: Prescribed or Continued at Discharge Meds if any: NOT Prescribed or Continued at Discharge Congestive Heart Failure Inclusion Criteria At DC or during hospital stay patient has or had the following: CHF DIAGNOSIS No Discharge Core Measures Meds if any: Prescribed or Continued at Discharge Meds if any: NOT Prescribed or Continued at Discharge Cerebrovascular accident Inclusion Criteria At DC or during hospital stay patient has or had the following: CVA/TIA Diagnosis No Discharge Core Measures Meds if any: Prescribed or Continued at Discharge Meds if any: NOT Prescribed or Continued at Discharge Venous thromboembolism Inclusion Criteria VTE Diagnosis No VTE Type NONE VTE Confirmed by (Test) NONE Discharge Core Measures - Per Current guidelines, there needs to be overlap - treatment for the first 5 days of Warfarin therapy. - If discharged on Warfarin prior to 5 days of - overlap therapy, the patient will need to be - assessed for post discharge needs including - *Post discharge parental anticoagulation - *Warfarin and/or parental anticoagulation education - *Follow up date to check INR post discharge At least 5 days overlap therapy as Inpatient No Meds if any: Prescribed or Continued at Discharge Note: Overlap Therapy is Warfarin and Anticoagulant Meds if any: NOT Prescribed or Continued at Discharge
[2016-09-14 16:24] VITALS: BP 122/70
[2016-09-14 23:44] VITALS: BP 124/88
--- NOTE | 2016-09-15 06:29 | PN- Housestaff ---
JAMIN BAKER,JOSESITO 09/15/16 0628: Subjective Follow-up For: CHARLES Petechial rash Asystole s/p pacemaker placement Afib Tele-Events Since Last Visit: Off tele Subjective: Patient is seen and examined at bedside. No new complaints. Denies any pain today. Reports improvements in the rash and itchiness. Feels much better overall. Denies any f/c, headache, dyspnea, chest pain, palpitations, n/v/, dizziness/lightheadedness. No events reported overnight. Review of Systems Constitutional: Reports: see HPI. Objective Last 24 Hrs of Vital Signs/I&O Vital Signs Date Time Temp Pulse Resp B/P Pulse O2 O2 Flow FiO2 Ox Delivery Rate 09/14 2344 97.6 86 20 124/88 97 Room Air 09/14 1624 97.9 88 20 122/70 98 Room Air 09/14 1105 Room Air Room Air 09/14 0942 86 132/70 09/14 0800 98.8 86 20 132/70 9 Room Air Intake & Output 09/15 0800 09/15 0000 09/14 1600 Intake Total 800 120 620 Output Total 875 750 690 Balance -75 -630 -70 Intake, Oral 800 120 620 Number 1 Bowel Movements Output, Urine 875 750 690 Patient 101.151 kg Weight Physical Exam General Appearance: Alert, Oriented X3, Cooperative, No Acute Distress Other Physical Findings: Skin: purpuric lesions on both lower extremities - improving, dry skin, stable hematoma around the pacemmaker placement site on the left chest extending to the prox LUE HEENT: Atraumatic Cardiovascular: irregular rate Lungs: Clear to Auscultation, Normal Air Movement Abdomen: Normal Bowel Sounds, Soft, No Tenderness Neurological: Normal Speech Extremities: Trace edema Current Medications: Current Medications Sig/Dagoberto Start time Last Medication Dose Route Stop Time Status Admin Acetaminophen 650 MG Q6P PRN 08/23 2345 AC 09/07 PO 204 Atorvastatin Calcium 20 MG 1700 09/14 1700 AC 09/14 PO 1701 Bisacodyl 10 MG .STK-MED ONE 09/14 0938 DC VA 09/14 0939 Bisacodyl 10 MG DAILY PRN 09/12 1400 AC 09/14 [place] 0941 Bisacodyl 5 MG DAILY 08/27 1358 AC 09/14 PO 0941 Cholecalciferol 1,000 IU DAILY 03/06 1046 AC 09/14 PO 0942 Fluticasone 2 SPRAY DAILY 09/09 1045 AC 09/14 Propionate KATHARINE 0941 Folic Acid 1 MG DAILY 08/24 1000 AC 09/14 PO 0941 Guaifenesin 10 ML Q6P PRN 08/26 1530 AC 09/09 PO 0903 Magnesium Chloride 64 MG ONCE ONE 09/14 1000 DC 09/14 PO 09/14 1001 1207 Melatonin 5 MG AT BEDTIME 09/08 2200 AC 09/14 PO 2113 Metoprolol Succinate 100 MG DAILY 09/09 1730 AC 09/14 PO 0942 Multivitamins 1 TAB DAILY 08/24 1000 AC 09/14 PO 0942 Omeprazole 40 MG DAILY AC 08/29 1045 AC 09/15 PO 0657 Oxycodone/ 1 TAB Q4-6 PRN PRN 09/09 1630 AC Acetaminophen PO Oxycodone/ 2 TAB Q4-6 PRN PRN 09/09 1630 AC Acetaminophen PO Phenol 2 SPRAY Q2P PRN 08/30 0900 AC 09/09 EXT 0903 Polyethylene Glycol 17 GM DAILY 08/27 1358 AC 09/14 PO 0941 Prednisone 60 MG DAILY 09/01 1000 AC 09/14 PO 0941 Senna/Docusate Sodium 2 TAB DAILY 09/13 1000 AC 09/14 PO 0942 Thiamine HCl 100 MG DAILY 08/24 1000 AC 09/14 PO 0942 Warfarin Sodium 2.5 MG COUMADIN 1700 ONE 09/14 1700 DC 09/14 PO 09/14 1701 1701 Last 24 Hrs of Lab/Hemal Results Last 24 Hrs of Labs/Mics: Laboratory Tests 09/15/16 0615: Sodium Pending, Potassium Pending, Chloride Pending, Carbon Dioxide Pending, Anion Gap Pending, BUN Pending, Creatinine Pending, BUN/Creatinine Ratio Pending , Phosphorus Pending, Magnesium Pending, PT Pending, INR Pending, CBC w Diff Pending, WBC Pending, RBC Pending, Hgb Pending, Hct Pending, MCV Pending, MCH Pending, RDW Pending, Plt Count Pending, MPV Pending, PUBS MCHC Pending Assessment/Plan Assessment: 71-year-old man with PMH of atrial fibrillation on Coumadin, CAD status post stents, with varicose veins, hospitalized 3 weeks [employer]ETING [employer] after trauma to the right leg requiring 2 units of blood, with persistent swelling, discomfort and discoloration of the right leg since then, self treated persistent leg swelling with Lasix several days prior to admission, prseneted to ED on August 23 with a diffuse petechial rash that was more localized 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 # Diffuse petechial rash Most likely ddx at this point is Henoch-Schnlein purpura which needs to be confirmed on renal biopsy. Patient has petechial rash in all extremities, first noted one week prior to admission, with persistent ecchymosis, edema and mild discomfort of the right leg. Subsequently developed CHARLES and hyperkalemia with microscopic hematuria. Also associated with cough with hemoptysis (not likely to be pulmonary based on chest ct). Elevated ESR 36, CRP >15, RF 13.9. Negative hepatitis panel, HIV, MARTIN, ANCA, cryoglobulin. Normal C3 and C4. 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 Removed the dialysis cath on 09/13 as per nephro * Check BEP daily, trend Cr - improving * Hold off lisinopril and diuretics for now as per nephro # Hx of asystole with advanced av block & new RBBB - Stat echo 09/08/16: Severely reduced left ventricular systolic function with akinesia of the inferior wall. Mild Aortic regurgitation and mild to moderate Mitral regurgitation with mild pulmonary hypertension. EF 20-25%. s/p pacemaker placement by Dr. Coombs (09/09) * Hold heparin drip in the setting of hematoma in the pacemaker site * Cont metoprolol at decreased dose of 75mg PO daily. # Atrial fibrillation (on coumadin at home) - CHADVASc score is 4 putting him at mod-high risk for stroke, on ArgatrobanCoumadin on hold due to possible renal biopsy * Monitor INR daily * Dose warfarin as per INR # Hx of CAD Patient carries a h/o myocardial infarction with mild to moderate left ventricular dysfunction by previous noninvasive imaging, now with severe LV dysfunction. Patient has a cardiomyopathy for which LISETH-I and Lasix are indicated but given his current renal function, we will hold onto them for now. * Cont aspirin 81 mg * Start Lipitor 20 mg PO daily * Add hydralazine 25mg PO BID and isosorbide 30mg QD # One episode of NSVT on telemetry, chronic LBBB (resolved) * Cont Toprol XL at decreased dose of 75mg daily # Hx of HTN * Continue antihypertensive meds metoprolol, hydralazine and isosorbide as discussed above # Possible Cellulitis of right thigh secondary to lower extremity ulceration - X-ray of the right tibia/fibula negative. - Doppler of the right lower extremity negative * ID input appreciated * Cont to monitor off antibiotics * Wound consult appreciated * Monitor WBC * Xeroform and leg elevation above his heart # Constipation * Cont bowel regimen and suppository as needed Diet: renal dialysis diet DVT ppx: supratherapeutic INR DNR/DNI In the event of any changes or updates please contact his son Paulo at [phone] or [id number] Sandra who is a hospice nurse at [phone] Problem List: 1. Thrombosed external hemorrhoid 2. Symptomatic anemia 3. Hypovolemic shock 4. Bleeding from varicose veins of right lower extremity 5. Atrial fibrillation 6. Acute kidney injury 7. Petechial rash 8. Glomerulonephritis 9. 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 AV block 13. Thrombocytopenia affecting 14. Thrombocytopenia Pain Ratin Pain Location: 0 Pain Goal: Remain pain free Pain Plan: Mild pathway Tomorrow's Labs & Rationales: None - discharge Consulting Request: Consulting Specialty: Thoracic/Vascular Surgery Consulting Physician: Dr. Coombs Reason for Consult: Pace Maker Placement OMAIRA FUNES 09/15/16 0929: Attending MD Review Statement Attending Statement Attending MD Statement: examined this patient, discuss w/resident/PA/[employer], agreed w/resident/PA/[employer], discussed with family, reviewed EMR data (avail), discussed with nursing, discussed with case mgmt, reviewed images Attending Assessment/Plan: 71 o/m with multiple medical problems as documented above is awaiting renal biopsy which could be done as outpatient , cardiology following , tolerating b freddy, low EF not candidate of liseth inhibitor 2/2 acute kidney injury needing dialysis. Check with nephrology in future if able to start LISETH inhibitor in systolic chf NYHA 3. Also plan to start lasix low dose as per cardiology if ok with nephrology. Patient found to have hematoama at pacemaker site. Cardiology recommend to stop heparin drip and monitor hematoma. In case it worsens they will evacuate pocket. Hematolgoy notes reviewed, negative US LUE r/o DVT for SAEID swelling. Patient explained risks/benefits of anticoagualiton in this scenario and patient agrees to plan. Resumed a/c and monitor INR and hematoma as per hematology/surgery. Cardiology recommends hydralazine/nitrates for CHF. reduce metoprolol, monitor bp and HR. Monitor patient closely. metoprolol, monitor bp and HR. Monitor patient closely.
[2016-09-15 08:00] VITALS: BP 140/70
[2016-09-15 08:07] LABS: ABSOLUTE BASOPHIL COUNT 0 /CUMM (0.0-0.2); ABSOLUTE EOSINOPHIL COUNT 0.1 /CUMM (0.0-0.7); ABSOLUTE GRANULOCYTE CT 18.5 /CUMM (1.4-6.5); ABSOLUTE LYMPH COUNT 0.8 /CUMM (1.2-3.4); ABSOLUTE MONOCYTE COUNT 1.2 /CUMM (0.10-0.60); BASOPHIL % 0 % (0.0-2.0); EOSINOPHIL % 0.4 % (0-5); GRANULOCYTE % 90.1 % (42.2-75.2); HEMATOCRIT 30.8 % (42-52); MEAN CORPUSCULAR HGB CONC 32.8 G/DL (33.0-37.0); MEAN CORPUSCULAR VOLUME 88.3 FL (80.0-94.0); MEAN PLATELET VOLUME 9.6 FL (7.4-10.4); PLATELET COUNT 65 /CUMM (130-400); RBC DISTRIBUTION WIDTH 15.7 % (11.5-14.5); RED BLOOD CELL CT 3.49 /CUMM (4.70-6.10)
[2016-09-15 08:29] LABS: PT 15.3 SEC (9.4-12.5)
--- NOTE | 2016-09-15 08:37 | PN- Cardiology ---
Subjective Subjective: Patient has been taken off telemetry. He is out in a chair feeling well and stronger. He apparently has been walking. Objective Vital Signs and I&Os Vital Signs Date Time Temp Pulse Resp B/P Pulse O2 O2 Flow FiO2 Ox Delivery Rate 09/15 0800 97.8 84 20 140/70 94 Room Air 09/14 2344 97.6 86 20 124/88 97 Room Air 09/14 1624 97.9 88 20 122/70 98 Room Air 09/14 1105 Room Air Room Air 09/14 0942 86 132/70 Intake & Output 09/15 1600 09/15 0800 09/15 0000 09/14 1600 09/14 0800 09/14 0000 Intake Total 800 120 620 480 480 Output Total 875 750 690 900 800 Balance -75 -630 -70 -420 -320 Intake, Oral 800 120 620 480 480 Number 1 0 0 Bowel Movements Output, Urine 875 750 690 900 800 Patient 233 lb 222 lb Weight Physical Exam: Gen. exam patient appeared comfortable. Head normocephalic atraumatic Eyes sclera anicteric conjunctiva showed no pallor extraocular muscles were normal Neck no jugular venous distention no thyroid masses no carotid bruits no palpable nodes Chest lungs were clear bilaterally Heart regular rhythm with a 1 to 2/6 systolic murmur Abdomen soft protuberant nontender Extremities chronic venous stasis with brawny in duration. Neurological no gross motor or sensory deficits Current Medications: Current Medications Sig/Dagoberto Start time Last Medication Dose Route Stop Time Status Admin Acetaminophen 650 MG Q6P PRN 08/23 2345 AC 09/07 PO 2045 Atorvastatin Calcium 20 MG 1700 09/14 1700 AC 09/14 PO 1701 Bisacodyl 10 MG .STK-MED ONE 09/14 0938 DC [place] 09/14 0939 Bisacodyl 10 MG DAILY PRN 09/12 1400 AC 09/14 [place] 0941 Bisacodyl 5 MG DAILY 08/27 1358 AC 09/14 PO 0941 Cholecalciferol 1,000 IU DAILY 08/29 1046 AC 09/14 PO 0942 Fluticasone 2 SPRAY DAILY 09/09 1045 AC 09/14 Propionate KATHARINE 0941 Folic Acid 1 MG DAILY 08/24 1000 AC 09/14 PO 0941 Guaifenesin 10 ML Q6P PRN 08/26 1530 AC 09/09 PO 0903 Magnesium Chloride 64 MG ONCE ONE 09/14 1000 DC 09/14 PO 09/14 1001 1207 Melatonin 5 MG AT BEDTIME 09/08 2200 AC 09/14 PO 2113 Metoprolol Succinate 100 MG DAILY 09/09 1730 AC 09/14 PO 0942 Multivitamins 1 TAB DAILY 08/24 1000 AC 09/14 PO 0942 Omeprazole 40 MG DAILY AC 08/29 1045 AC 09/15 PO 0657 Oxycodone/ 1 TAB Q4-6 PRN PRN 09/09 1630 AC Acetaminophen PO Oxycodone/ 2 TAB Q4-6 PRN PRN 09/09 1630 AC Acetaminophen PO Phenol 2 SPRAY Q2P PRN 08/30 0900 AC 09/09 EXT 0903 Polyethylene Glycol 17 GM DAILY 08/27 1358 AC 09/14 PO 0941 Prednisone 60 MG DAILY 09/01 1000 AC 09/14 PO 0941 Senna/Docusate Sodium 2 TAB DAILY 09/13 1000 AC 09/14 PO 0942 Thiamine HCl 100 MG DAILY 08/24 1000 AC 09/14 PO 0942 Warfarin Sodium 2.5 MG COUMADIN 1700 ONE 09/14 1700 DC 09/14 PO 09/14 1701 1701 Results Last 48 Hrs of Labs/Mics: Laboratory Tests 09/15/16 0615: Anion Gap 5, Estimated GFR 31 L, BUN/Creatinine Ratio 32.4 H, Phosphorus 4.6 H, Magnesium 1.8, PT Pending, INR Pending, CBC w Diff Pending, WBC Pending, RBC Pending, Hgb Pending, Hct Pending, MCV Pending, MCH Pending, RDW Pending, Plt Count Pending, MPV Pending, Gran % Pending, Lymphocytes % Pending, Monocytes % Pending, Eosinophils % Pending, Basophils % Pending, Absolute Granulocytes Pending, Absolute Lymphocytes Pending, Absolute Monocytes Pending, Absolute Eosinophils Pending, Absolute Basophils Pending, PUBS MCHC Pending 09/14/16 0620: Anion Gap 4 L, Estimated GFR 28 L, BUN/Creatinine Ratio 32.6 H, Phosphorus 4.3, Magnesium 1.9, PT 15.4 H, INR 1.47 H, CBC w Diff MAN DIFF ORDERED, RBC 3.62 L, MCV 88.1, MCH 29.0, RDW 15.7 H, MPV 9.6, Gran % 92.1 H, Lymphocytes % 2.7 L, Monocytes % 5.2, Eosinophils % 0, Basophils % 0 L, Absolute Granulocytes 22.6 H, Absolute Lymphocytes 0.7 L, Absolute Monocytes 1.3 H, Absolute Eosinophils 0, Absolute Basophils 0, Platelet Estimate DECREASED, Hypochromic-Microcytic 2+, Poikilocytosis 1+, Anisocytosis 1+, Ovalocytes 1+, PUBS MCHC 32.9 L 09/13/16 0848: Anion Gap 7, Estimated GFR 28 L, BUN/Creatinine Ratio 36.5 H, Phosphorus 5.0 H, Magnesium 1.9, PT 17.0 H, INR 1.63 H, CBC w Diff NO MAN DIFF REQ, RBC 4.01 L, MCV 88.1, MCH 28.8, RDW 15.7 H, MPV 9.1, Gran % 87.5 H, Lymphocytes % 4.8 L, Monocytes % 7.3, Eosinophils % 0.1, Basophils % 0.3, Absolute Granulocytes 17.6 H, Absolute Lymphocytes 1.0 L, Absolute Monocytes 1.5 H, Absolute Eosinophils 0, Absolute Basophils 0.1, PUBS MCHC 32.7 L Assessment/Plan Assessment/Plan In summary this 71-year-old gentleman has the following problems 1. 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 Persistent atrial fibrillation on anticoagulation with Coumadin on hold 3. History of coronary artery disease/prior myocardial infarction with mild to moderate left ventricular dysfunction by previous noninvasive imaging, now with severe LV dysfunction 4. NSVT on telemetry 5. Small bilateral pleural effusions 6. Chronic left bundle branch block 7. Hx HTN 8. Venous insufficiency 9. Thrombocytopenia 10. Prolonged pauses, s/p MRI compatible single lead permanent pacemaker 09/09/16 His pacemaker site is stable without increasing hematoma. He has been taken off telemetry. His dialysis catheter has been removed. He is receiving physical therapy. I would be hesitant to use Akbar inhibitors in view of his high potassium and still present renal insufficiency. However we could use a combination of hydralazine 25 mg by mouth twice a day and isosorbide 30 mg a day in combination for his cardiomyopathy until his renal functions improve and the transition can be made to Akbar inhibitors. Continue with metoprolol. He is already begun on Coumadin to await therapeutic INR. Continue with intense physical therapy. Continue telemetry? Not applicable
[2016-09-15 09:15] LABS: WHITE BLOOD CELL COUNT 20.5 /CUMM (4.8-10.8)
--- NOTE | 2016-09-15 09:15 | PN- Hematology ---
Subjective Subjective: He feels better. He denies any new pain. He has no fever or chills. Review of Systems: Constitutional: Denies: chills, fever. EENTM: Denies: visual changes. Cardiovascular: Denies: chest pain. Respiratory: Denies: short of breath. Gastrointestinal: Reports: abdominal pain, distention. Denies: diarrhea, nausea. Musculoskeletal: Reports: back pain. Skin: Reports: rash. Hematologic/Endocrine: Denies: bleeding. All Other Systems: Reviewed and Negative Objective Vital Signs and I&Os Vital Signs Date Time Temp Pulse Resp B/P Pulse O2 O2 Flow FiO2 Ox Delivery Rate 09/15 08 97.8 84 20 140/70 94 Room Air 09/14 2344 97.6 86 20 124/88 97 Room Air 09/14 1624 97.9 88 20 122/70 98 Room Air 09/14 1105 Room Air Room Air 09/14 0942 86 132/70 Intake & Output 09/15 1600 09/15 0800 09/15 0000 09/14 1600 09/14 0800 09/14 0000 Intake Total 800 120 620 480 480 Output Total 875 750 690 900 800 Balance -75 -630 -70 -420 -320 Intake, Oral 800 120 620 480 480 Number 1 0 0 Bowel Movements Output, Urine 875 750 690 900 800 Patient 105.687 kg 100.811 kg Weight Physical Exam: General Appearance: alert, awake, comfortable Head: atraumatic Respiratory: normal breath sounds, chest non-tender, quiet respiration, decreased breath sounds Cardiovascular: irregularly irregular Abdomen: normal bowel sounds, soft Neurologic/Psychiatric: alert, oriented x 3 Skin: rash (bilateral lower extremity), macular rash on hands seems worse today, no cyanosis Current Medications: Current Medications Sig/Dagoberto Start time Last Medication Dose Route Stop Time Status Admin Acetaminophen 650 MG Q6P PRN 08/23 2345 AC 09/07 PO 204 Atorvastatin Calcium 20 MG 1700 09/14 1700 AC 09/14 PO 1701 Bisacodyl 10 MG .STK-MED ONE 09/14 0938 DC [place] 09/14 0939 Bisacodyl 10 MG DAILY PRN 09/12 1400 AC 09/14 [place] 0941 Bisacodyl 5 MG DAILY 08/27 1358 AC 09/14 PO 0941 Cholecalciferol 1,000 IU DAILY 08/29 1046 AC 09/14 PO 0942 Fluticasone 2 SPRAY DAILY 09/09 1045 AC 09/14 Propionate KATHARINE 0941 Folic Acid 1 MG DAILY 08/24 1000 AC 09/14 PO 0941 Guaifenesin 10 ML Q6P PRN 08/26 1530 AC 09/09 PO 0903 Magnesium Chloride 64 MG ONCE ONE 09/14 1000 DC 09/14 PO 09/14 1001 1207 Melatonin 5 MG AT BEDTIME 09/08 2200 AC 09/14 PO 2113 Metoprolol Succinate 100 MG DAILY 09/09 1730 AC 09/14 PO 0942 Multivitamins 1 TAB DAILY 08/24 1000 AC 09/14 PO 0942 Omeprazole 40 MG DAILY AC 08/29 1045 AC 09/15 PO 0657 Oxycodone/ 1 TAB Q4-6 PRN PRN 09/09 1630 AC Acetaminophen PO Oxycodone/ 2 TAB Q4-6 PRN PRN 09/09 1630 AC Acetaminophen PO Phenol 2 SPRAY Q2P PRN 08/30 0900 AC 09/09 EXT 0903 Polyethylene Glycol 17 GM DAILY 08/27 1358 AC 09/14 PO 0941 Prednisone 60 MG DAILY 09/01 1000 AC 09/14 PO 0941 Senna/Docusate Sodium 2 TAB DAILY 09/13 1000 AC 09/14 PO 0942 Thiamine HCl 100 MG DAILY 08/24 1000 AC 09/14 PO 0942 Warfarin Sodium 2.5 MG COUMADIN 1700 ONE 09/14 1700 DC 09/14 PO 09/14 1701 1701 Results Last 24 Hours of Lab Results: Laboratory Tests 09/15 0615 Chemistry Sodium (137 - 145 mmol/L) 138 Potassium (3.5 - 5.1 mmol/L) 5.5 H Chloride (98 - 107 mmol/L) 108 H Carbon Dioxide (22 - 30 mmol/L) 26 Anion Gap (5 - 16) 5 BUN (9 - 20 mg/dL) 68 H Creatinine (0.7 - 1.2 mg/dL) 2.1 H Estimated GFR (>60 ml/min) 31 L BUN/Creatinine Ratio (7 - 25 %) 32.4 H Phosphorus (2.5 - 4.5 mg/dL) 4.6 H Magnesium (1.6 - 2.3 mg/dL) 1.8 Coagulation PT (9.4 - 12.5 SEC) 15.3 H INR (0.90 - 1.17) 1.46 H Hematology CBC w Diff Pending WBC Pending RBC Pending Hgb Pending Hct Pending MCV Pending MCH Pending RDW Pending Plt Count Pending MPV Pending Gran % Pending Lymphocytes % Pending Monocytes % Pending Eosinophils % Pending Basophils % Pending Absolute Granulocytes Pending Absolute Lymphocytes Pending Absolute Monocytes Pending Absolute Eosinophils Pending Absolute Basophils Pending PUBS MCHC Pending Assessment/Plan Assessment/Recommendations: Mr. Dutton is a 71-year-old male with afib on warfarin, CAD s/p stents who presents with new leukocytoclastic vasculitis. Platelet counts trending downward again. He has fluctuation in platelet counts. HIT/LEONARDO were negative previously. It is unclear as to the etiology of thrombocytopenia. The fluctuation in the platelets suggest a consumptive process. With his likely vasculitic disease, autoimmune etiology may be likely. He has been on prednisone since 09/01. His rash seems a little worse this morning in the hands. The lower extremity rash is stable. I would monitor the CBC closely for worsening thrombocytopenia. He is back on warfarin now for his atrial fibrillation. 1. Monitor CBC 2. Continue prednisone for underlying vasculitis 3. Would hold anticoagulation if platelet <50,000 Please call [phone] with any questions/concerns Problem List: 1. Thrombocytopenia 2. Glomerulonephritis
--- NOTE | 2016-09-15 09:20 | PN- Nephrology ---
Assessment/Plan Assessment: 1. CHARLES: due to acute GN w skin leukocytoclastic vasculitis & neg serologic w/u - -> continues to improve. 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 HS purpura less likely w/o IgA on skin bx IF. Needs to continue steroids. 2. Thrombocytopenia: ? etiology; w/u HIT negative; needs heme f/u. 3. Hyperkalemia: mild - no objection to Kayexalate w outpt repat lytes later in week. Suggestion: 1. Continue current prednisone 2. Warfarin for A fib 3. Heme f/u re thrombocytopenia 4. OK for discharge --> outpt f/u our office w Dr Morejon 2-4 weeks Subjective Subjective: Feeling much better No SOB; no uremic sx Anxious for rehab Skin bx IF neg IgA Objective Vital Signs and I&Os Vital Signs Date Time Temp Pulse Resp B/P Pulse O2 O2 Flow FiO2 Ox Delivery Rate 09/15 0800 97.8 84 20 140/70 94 Room Air 09/14 2344 97.6 86 20 124/88 97 Room Air 09/14 1624 97.9 88 20 122/70 98 Room Air 09/14 1105 Room Air Room Air 09/14 0942 86 132/70 Intake & Output 09/15 1600 09/15 0400 09/14 1600 09/14 0400 09/13 1600 09/13 0400 Intake Total 558 124 1273 480 1160 420 Output Total 482 053 4627 800 1250 975 Balance -75 -630 -490 -320 -90 -555 Intake, IV 20 Intake, Oral 374 269 2860 480 1160 400 Number 1 0 2 Bowel Movements Output, Urine 144 301 4463 800 1250 975 Patient 233 lb 222 lb 222 lb Weight Physical Exam General Appearance: well developed/nourished, no apparent distress, alert Head: atraumatic Ears, Nose, Throat: normal ENT inspection Neck: L pacer subclaviam location Respiratory: normal breath sounds, quiet respiration, lungs clear Cardiovascular: regular rate/rhythm, edema, friction rub (none heard) Abdomen: soft, non-tender Extremities: swelling Skin: ecchymosis Current Medications: Current Medications Sig/Dagoberto Start time Last Medication Dose Route Stop Time Status Admin Acetaminophen 650 MG Q6P PRN 08/23 2345 AC 09/07 PO 2044 Atorvastatin Calcium 20 MG 1700 09/14 1700 AC 09/14 PO 1701 Bisacodyl 10 MG .STK-MED ONE 09/14 0938 DC ND 09/14 0939 Bisacodyl 10 MG DAILY PRN 09/12 1400 AC 09/14 ND 0941 Bisacodyl 5 MG DAILY 08/27 1358 AC 09/14 PO 0941 Cholecalciferol 1,000 IU DAILY 08/29 1046 AC 09/14 PO 0942 Fluticasone 2 SPRAY DAILY 09/09 1045 AC 09/14 Propionate KATHARINE 0941 Folic Acid 1 MG DAILY 08/24 1000 AC 09/14 PO 0941 Guaifenesin 10 ML Q6P PRN 08/26 1530 AC 09/09 PO 0903 Hydralazine HCl 25 MG BID 09/15 1000 AC PO Isosorbide Dinitrate 30 MG DAILY 09/15 1000 UNVr PO Magnesium Chloride 64 MG ONCE ONE 09/14 1000 DC 09/14 PO 09/14 1001 1207 Melatonin 5 MG AT BEDTIME 09/08 2200 AC 09/14 PO 2113 Metoprolol Succinate 75 MG DAILY 09/15 1000 UNVr PO Metoprolol Succinate 100 MG DAILY 09/09 1730 DC 09/14 PO 0942 Multivitamins 1 TAB DAILY 08/24 1000 AC 09/14 PO 0942 Omeprazole 40 MG DAILY AC 08/29 1045 AC 09/15 PO 0657 Oxycodone/ 1 TAB Q4-6 PRN PRN 09/09 1630 AC Acetaminophen PO Oxycodone/ 2 TAB Q4-6 PRN PRN 09/09 1630 AC Acetaminophen PO Phenol 2 SPRAY Q2P PRN 08/30 0900 AC 09/09 EXT 0903 Polyethylene Glycol 17 GM DAILY 08/27 1358 AC 09/14 PO 0941 Prednisone 60 MG DAILY 09/01 1000 AC 09/14 PO 0941 Senna/Docusate Sodium 2 TAB DAILY 09/13 1000 AC 09/14 PO 0942 Sodium Polystyrene 120 ML ONCE ONE 09/15 0915 UNVr Sulfonate PO 09/15 0916 Thiamine HCl 100 MG DAILY 08/24 1000 AC 09/14 PO 0942 Warfarin Sodium 2.5 MG COUMADIN 1700 ONE 09/15 1700 UNVr PO 09/15 1701 Warfarin Sodium 2.5 MG COUMADIN 1700 ONE 09/14 1700 DC 09/14 PO 09/14 1701 1701 Results Pertinent Lab Results: Laboratory Tests 09/15 09/14 09/13 0615 0620 0848 Chemistry Sodium (137 - 145 mmol/L) 138 137 139 Potassium (3.5 - 5.1 mmol/L) 5.5 H 5.1 5.3 H Chloride (98 - 107 mmol/L) 108 H 109 H 106 Carbon Dioxide (22 - 30 mmol/L) 26 24 26 Anion Gap (5 - 16) 5 4 L 7 BUN (9 - 20 mg/dL) 68 H 75 H 84 H Creatinine (0.7 - 1.2 mg/dL) 2.1 H 2.3 H 2.3 H Estimated GFR (>60 ml/min) 31 L 28 L 28 L BUN/Creatinine Ratio (7 - 25 %) 32.4 H 32.6 H 36.5 H Phosphorus (2.5 - 4.5 mg/dL) 4.6 H 4.3 5.0 H Magnesium (1.6 - 2.3 mg/dL) 1.8 1.9 1.9 Coagulation PT (9.4 - 12.5 SEC) 15.3 H 15.4 H 17.0 H INR (0.90 - 1.17) 1.46 H 1.47 H 1.63 H Hematology CBC w Diff Pending MAN DIFF ORDERED NO MAN DIFF REQ WBC (4.8 - 10.8 /CUMM) Pending 24.5 H 20.2 H RBC (4.70 - 6.10 /CUMM) Pending 3.62 L 4.01 L Hgb (14.0 - 18.0 G/DL) Pending 10.5 L 11.6 L Hct (42 - 52 %) Pending 31.9 L 35.3 L MCV (80.0 - 94.0 FL) Pending 88.1 88.1 MCH (27.0 - 31.0 PG) Pending 29.0 28.8 RDW (11.5 - 14.5 %) Pending 15.7 H 15.7 H Plt Count (130 - 400 /CUMM) Pending 74 L 89 L MPV (7.4 - 10.4 FL) Pending 9.6 9.1 Gran % (42.2 - 75.2 %) Pending 92.1 H 87.5 H Lymphocytes % (20.5 - 51.1 %) Pending 2.7 L 4.8 L Monocytes % (1.7 - 9.3 %) Pending 5.2 7.3 Eosinophils % (0 - 5 %) Pending 0 0.1 Basophils % (0.0 - 2.0 %) Pending 0 L 0.3 Absolute Granulocytes (1.4 - 6.5 /CUMM) Pending 22.6 H 17.6 H Absolute Lymphocytes (1.2 - 3.4 /CUMM) Pending 0.7 L 1.0 L Absolute Monocytes (0.10 - 0.60 /CUMM) Pending 1.3 H 1.5 H Absolute Eosinophils (0.0 - 0.7 /CUMM) Pending 0 0 Absolute Basophils (0.0 - 0.2 /CUMM) Pending 0 0.1 Platelet Estimate (ADEQUATE) DECREASED Hypochromic-Microcytic 2+ Poikilocytosis 1+ Anisocytosis 1+ Ovalocytes 1+ PUBS MCHC (33.0 - 37.0 G/DL) Pending 32.9 L 32.7 L 09/12 09/12 09/12 1230 0950 0914 Chemistry Magnesium Cancelled Coagulation PT Cancelled INR Cancelled APTT Cancelled Hematology CBC w Diff Cancelled WBC Cancelled RBC Cancelled Hgb Cancelled Hct Cancelled MCV Cancelled MCH Cancelled RDW Cancelled Plt Count Cancelled MPV Cancelled PUBS MCHC Cancelled Imaging/Other Studies: CXR: There is persistent elevation of the right hemidiaphragm, and there may be a small right-sided pleural effusion. The right lung is hypoexpanded, but similar compared to the prior study. The left lung is well-aerated and appears clear. There are no pneumothoraces. The cardiac silhouette is normal. The central pulmonary vasculature is normal. There has been interval removal of the right internal jugular hemodialysis catheter. The left chest pacer with single lead is unchanged. IMPRESSION: 1. There is persistent elevation of the right hemidiaphragm, and there may be a small pleural effusion. 2. There is no focal consolidation.
[2016-09-15] MEDS ORDERED: ATORVASTATIN CA20 M1 PO (15:59)
[2016-09-15] MEDS ORDERED: ISOSORBIDE MONO30 M1 PO (16:00)
[2016-09-15] MEDS ORDERED: HYDRALAZINE HCL25 M1 PO (16:01)
[2016-09-15] MEDS ORDERED: OMEPRAZOLE20 M2 PO (16:02)
[2016-09-15] MEDS ORDERED: PREDNISONE20 M1 PO (16:04)
[2016-09-15 16:08] VITALS: BP 138/78
== END 2016-09-15 17:00 | DRG 813 ==
LOC: ENRESERVDT → ENRESERVTM → ERH 13:58 → 1NO 19:54 → 2NA 19:54 → CRI 19:54 → ERHI 19:54 → ENPENDDIS 19:54 → 2NA 23:00 → 1NO 08-29 13:24 → CRI 09-05 20:49 → 1NO 09-10 13:03
PROVIDERS: Internal Medicine; Internal Medicine Hematology & Oncology; Internal Medicine Interventional Cardiology; Internal Medicine Pulmonary Disease; Physician Assistant; Psychiatry & Neurology Psychiatry; Radiology Diagnostic Radiology; Student in an Organized Health Care Education/Training Program; ADMIT Internal Medicine
PROC: 0HBHXZX Excision of Right Upper Leg Skin, External Approach, Diagnostic (ICD-10-PCS; 2016-08-26)
PROC: 02H633Z Insertion of Infusion Device into Right Atrium, Percutaneous Approach (ICD-10-PCS; 2016-08-30)
PROC: 5A1D60Z (ICD-10-PCS; 2016-08-30)
PROC: 0JBN3ZX Excision of Right Lower Leg Subcutaneous Tissue and Fascia, Percutaneous Approach, Diagnostic (ICD-10-PCS; 2016-09-08)
PROC: 0JH604Z Insertion of Pacemaker, Single Chamber into Chest Subcutaneous Tissue and Fascia, Open Approach (ICD-10-PCS; principal; 2016-09-09)
PROC: 02HK3JZ Insertion of Pacemaker Lead into Right Ventricle, Percutaneous Approach (ICD-10-PCS; principal; 2016-09-09)
PROC: 02PAX3Z Removal of Infusion Device from Heart, External Approach (ICD-10-PCS; 2016-09-13)
DX: D69.0 Allergic purpura (principal); I50.21 Acute systolic (congestive) heart failure; I47.2 Ventricular tachycardia; N17.9 Acute kidney failure, unspecified; N00.8 Acute nephritic syndrome with other morphologic changes; D69.6 Thrombocytopenia, unspecified; E87.1 Hypo-osmolality and hyponatremia; L03.115 Cellulitis of right lower limb; L97.919 Non-pressure chronic ulcer of unspecified part of right lower leg with unspecified severity; R04.2 Hemoptysis; I45.2 Bifascicular block; I97.638 Postprocedural hematoma of a circulatory system organ or structure following other circulatory system procedure; I48.2 Chronic atrial fibrillation; E87.5 Hyperkalemia; I27.2 Other secondary pulmonary hypertension; I11.0 Hypertensive heart disease with heart failure; I25.5 Ischemic cardiomyopathy; I87.2 Venous insufficiency (chronic) (peripheral); I25.10 Atherosclerotic heart disease of native coronary artery without angina pectoris; Z79.01 Long term (current) use of anticoagulants; Z95.5 Presence of coronary angioplasty implant and graft; I44.30 Unspecified atrioventricular block; I25.2 Old myocardial infarction; R91.8 Other nonspecific abnormal finding of lung field; I08.0 Rheumatic disorders of both mitral and aortic valves; Y83.8 Other surgical procedures as the cause of abnormal reaction of the patient, or of later complication, without mention of misadventure at the time of the procedure
CPT/HCPCS: 04007; 1NSP; 2NAP; 83520; 83883; 84133; 84300; 86021; 86022; 86160; CCU; ERO; 36415; 73590-RT; 74176; 76775; 77001; 81001; 82436; 82570; 82595; 84165; 86431; 87040; 87070; 87086; 87389; 88305; 93005; 93010; 93306; 93970; 97110-GO; 97116-GO; 97162-GP; 97164-GP; 97530-GO; C1752; C1769; C1786; C1898; J0461; J0690; J1644; J1940; J2920; J3490; J7040; J7060; J7508

== ENCOUNTER 2016-10-08 11:06 | Inpatient (IN) | payer OTHER ==
[~2016-10-08] VITALS: Ht 177.8 cm; Wt 99.8 kg
[~2016-10-08 11:06] MED LIST changes: +ATORVASTATIN CA20 M1 PO; +CENTRUM SILVER1 EAC4 PO; +HYDRALAZINE HCL25 M1 PO; +ISOSORBIDE MONO30 M1 PO; +OMEPRAZOLE20 M2 PO; +PREDNISONE20 M1 PO
--- NOTE | 2016-10-08 11:22 | ED GENERAL ADULT ---
History of Present Illness General Chief Complaint: Epistaxis/Nasal Foreign Body Stated Complaint: BIBA FROM ECF HEMOPTYSIS X24 HOURS, ON COUMADIN Source: patient Exam Limitations: no limitations Vital Signs & Intake/Output Vital Signs & Intake/Output Vital Signs Date Time Temp Pulse Resp B/P Pulse O2 O2 Flow FiO2 Ox Delivery Rate 10/08 1437 96.9 93 22 138/79 98 Room Air 10/08 1350 96.0 105 16 133/81 99 Room Air 10/08 1124 98 Room Air 10/08 1123 98.0 96 16 133/99 98 Room Air Allergies Coded Allergies: No Known Allergies (09/10/16) Reconcile Medications Aspirin (Aspirin*) 81 MG TAB.CHEW 81 MG PO DAILY HEART HEALTH (Reported) Atorvastatin Calcium 20 MG TABLET 20 MG PO 1700 CHOLESTEROL Furosemide 40 MG TABLET 1 TAB PO Q48 WATER RETENTION (Reported) Furosemide (Lasix) 20 MG TABLET 1 TAB PO Q48 WATER RETENTION (Reported) Hydralazine HCl 25 MG TABLET 25 MG PO BID CARDIOMYOPATHY Isosorbide Mononitrate (Isosorbide Mononitrate ER) 30 MG TAB.ER.24H 30 MG PO DAILY CARDIOMYOPATHY Metoprolol Tartrate 50 MG TABLET 1 TAB PO BID AFIB (Reported) Multivit-Min/FA/Lycopen/Lutein (Centrum Silver Men Tablet) 300 MCG-600 MCG-300 MCG TABLET 1 TAB PO DAILY SUPPLEMENT (Reported) Omeprazole 20 MG CAPSULE.DR 40 MG PO DAILY AC GI PROPHYLAXIS Prednisone 20 MG TABLET 60 MG PO DAILY VASCULITIS Sennosides/Docusate Sodium (Senna S Tablet) 8.6 MG-50 MG TABLET 2 TAB PO QPM CONSTIPATION (Reported) Warfarin Sodium 5 MG TABLET 0.5 TAB PO 1700 BLOOD THINNER (Reported) Please check your INR regularly to keep in between 2-3. Triage Nurses Notes Reviewed? yes Onset: Gradual Duration: hour(s): (24) Timing: no prior history Injury Environment: home Severity: moderate Severity Numbers: 8 No Modifying Factors: none Associated Symptoms: cough HPI: Patient is a 71-year-old male coming in from a nursing facility with chief complaint of hemoptysis and hematuria. He reports that the hemoptysis has been going on and off for the past month but it got worse over the past 2 days. He reports spitting up approximately a total of 4 ounces of the past 24 hours. Denies any sputum in the cough, reports that is just blood. He reports fatigue and malaise associated with this increase of hemoptysis. [facility] and told him that it was okay. His INR check was this morning and it was 2.9. Patient also reporting hematuria thing going on and off for the past 4 weeks and he reports that over the past several days it seems to be resolving. He notes that initially it was bright red blood that he was urinating and now with more of a tinged color rather than bright red blood. Denies any abdominal pain. No changes in weight. Denies any fevers or chills. No sick contacts or travel. Has reports he is being treated for lower extremity wounds that have been there and she's been in the hospital for the past 2 months. The last time they changeD the dressing was this morning. Sitting up seems to make the cough slightly improving, laying back seems to make it little worse. Denies taking anything to help with the cough. Denies any choking episodes. (ISAAC BILLY) Past History Medical History Any Pertinent Medical History? 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 No (ISAAC BILLY) Review of Systems Review of Systems Constitutional: Reports: malaise. Comments Review of systems: See HPI, All other systems negative. Constitutional, no chills fever or weight loss HEENT: No visual changes no sore throaT Cardiovascular: No chest pain ,palpitation Skin, no jaundice no rashes Respiratory: No dyspnea , pos hemoptysis GI: No nausea no vomiting : No dysuria Muscle skeletal: no back pain, no neck pain, Neurologic: No numbness no confusion no hall Psych: No stress anxiety or depression,. Heme/endocrine: No bruising no bleeding no polyuria or polydipsia Immunology: No splenectomy or history of AIDS (ISAAC BILLY) Physical Exam Physical Exam General Appearance: well developed/nourished, no apparent distress, alert, awake , comfortable Comments: Well-developed well-nourished person in no acute distress HEENT: extraocular motion intact, no nystagmus. Pupils equally round and reactive to light and accommodation. Nose is atraumatic. External auditory canal and Tympanic membranes clear. Pharynx normal. No swelling or edema. Very dry oral mucosa with dried blood noted over the lips. No bright red blood noted. Missing teeth noted. Pallor noted to palpable conjunctiva bilaterally. Neck: Supple, no lymphadenopathy, normal range of motion without pain or tenderness Back: Nontender, no CVA tenderness. Full range of motion Cardiovascular: IRRegular rate and rhythms no murmurs rubs or gallops, normal JVP Respiratory: Chest nontender. No respiratory distress.breath sounds diminished to auscultation bilaterally at the bases with scant wheezing noted in the upper lung elaine. Abdomen: Soft, nontender nondistended, no appreciable organomegaly. Normal bowel sounds. RECTAL: Nontender, guaiac-negative, brown stool. Extremity: 3+ pitting edema in the lower extremity as bilaterally, no calf tenderness to palpation, pedal pulses are 1+ bilaterally, warm extremities. There is a 3 cm ulcerous lesion noted on the right medial aspect of the right lower leg approximately 4-5 cm distally from the patella, approximate STage 2. There is a second wound on the medial aspect of the right ankle at approximately 1 cm in size, ulcers in nature, approximate stage is to. No surrounding erythema. There is a third wound on the dorsum of the left foot that is approximately 2 cm in diameter, mildly tender, approximate stage is stage II, Mildly erythematous. Capillary refill in lower extremity is bilaterally is approximately 4 seconds. Neuro: Alert oriented x3, motor sensory normal, cranial nerves II through XII grossly intact. Skin: See extremity exam. Patient also has a 2 cm circular erythematous lesion noted on the right upper gluteal fold, appears to be stage I pressure ulcer. Psych: Mood and affect is normal, memory and judgment is normal. Core Measures ACS in differential dx? Yes CVA/TIA Diagnosis: No Severe Sepsis Present: No Septic Shock Present: No (ISAAC BILLY) Progress Differential Diagnoses I considered the following diagnoses in my evaluation of the patient: Acute on chronic anemia, dehydration, electrolyte abnormality, pulmonary embolus, pneumonia, bronchitis, UTI, pyelonephritis, hydronephrosis, tuberculosis Plan of Care: Orders Procedure Date/time Status PROTHROMBIN TIME 10/09 0600 Active CBC WITHOUT DIFFERENTIAL 10/09 0600 Active BASIC ELECTROLYTES PLUS BUN&CR 10/09 0600 Active Regular Diet 10/08 D Active OXYGEN SETUP (GEN) 10/08 1319 Active Saline Lock 10/08 1319 Active Pathway - chart 10/08 1319 Active Misc Message 10/08 1319 Active House Staff 10/08 1319 Active ED Holding Orders 10/08 1319 Active Admit to inpatient 10/08 1319 Active Vital Signs 10/08 1319 Active Activity/Ambulation 10/08 1319 Active Code Status 10/08 1319 Active BLOOD PRODUCT PICKUP 10/08 1319 Active Patient Data 10/08 1310 Active LEUKOCYTE POOR (PACKED CELLS) 10/08 1310 Active MISTAKE 10/08 1240 Active CULTURE,URINE 10/08 1124 Active URINALYSIS 10/08 1124 Active TROPONIN LEVEL 10/08 1124 Complete PARTIAL THROMBOPLASTIN TIME 10/08 1124 Complete PROTHROMBIN TIME 10/08 1124 Complete COMPREHENSIVE METABOLIC PANEL 10/08 1124 Complete CBC WITHOUT DIFFERENTIAL 10/08 1124 Complete EKG 10/08 1124 Active TYPE & SCREEN (NOT X-MATCH) 10/08 1124 Active VTE Mechanical Prophylaxis 10/08 UNK Active Vital Signs 10/08 UNK Active Precautions 10/08 UNK Active Intake & Output 10/08 UNK Active Hemoccult 10/08 UNK Active Laboratory Tests 10/08/16 1140: Anion Gap 9, Estimated GFR 21 L, BUN/Creatinine Ratio 31.0 H, Glucose 167 H, Calcium 8.5, Total Bilirubin 0.7, AST 16 L, ALT 37, Alkaline Phosphatase 101, Troponin I 0.07, Total Protein 4.7 L, Albumin 2.0 L, Globulin 2.7, Albumin/ Globulin Ratio 0.7 L, PT 31.9 H, INR 3.07 H, APTT 31, CBC w Diff MAN DIFF ORDERED, RBC 2.92 L, MCV 84.8, MCH 28.1, RDW 15.7 H, MPV 8.4, Gran % 90.0 H, Lymphocytes % 4.3 L, Monocytes % 5.0, Eosinophils % 0, Basophils % 0.7, Absolute Granulocytes 14.0 H, Absolute Lymphocytes 0.7 L, Absolute Monocytes 0.8 H, Absolute Eosinophils 0, Absolute Basophils 0.1, Platelet Estimate DECREASED, Hypochromic-Microcytic 2+, Poikilocytosis 2+, Anisocytosis 1+, Ovalocytes 1+, PUBS MCHC 33.1 10/08/16 1100: Urine Color Pending, Urine Clarity Pending, Urine pH Pending, Ur Specific [place] Pending, Urine Protein Pending, Urine Ketones Pending, Urine Nitrite Pending, Urine Bilirubin Pending, Urine Urobilinogen Pending, Ur Leukocyte Esterase Pending, Ur Microscopic Pending, Urine Hemoglobin Pending, Urine Glucose Pending Microbiology 10/08 1237 URINE ROUT: Urine Culture - RECD Diagnostic Imaging: Viewed by Me: Radiology Read. Discussed w/RAD: Radiology Read. Radiology Impression: PATIENT: AMELIA VALVERDE PRESENT AGE : 71 PATIENT ACCOUNT NO: [id number] : 44 LOCATION: [facility] ORDERING PHYSICIAN: ISAAC HAMM SERVICE DATE: 10/08/16 EXAM TYPE: RAD - XRY-PORTABLE CHEST XRAY EXAMINATION: XR PORTABLE CHEST CLINICAL INFORMATION: Cough. COMPARISON: Chest 09/14/2016. TECHNIQUE: Portable AP view of the chest was obtained. FINDINGS: There is elevated right hemidiaphragm. Both lungs are well-expanded and clear. Heart size and pulmonary vascularity is normal. Unipolar pacer electrode tip remains in SVC. No gross bony abnormality seen. IMPRESSION: Elevated right hemidiaphragm. No acute process seen in chest. No change from 09/14/2016 exam. DICTATED BY: GIAN ALTAMIRANO MD DATE/TIME DICTATED:1240 MATH INTERVENTIONIST:SUDHIR DATE/TIME TRANSCRIBED:10/08/161240 CONFIDENTIAL, DO NOT COPY WITHOUT APPROPRIATE AUTHORIZATION. <Electronically signed in Other Vendor System> SIGNED BY: GIAN ALTAMIRANO MD 10/08/166 Initial ED EKG: SINUS TACHYCARDIA AT 190S FOR MINUTE Prior EKG: unchanged Comments: 10/08/2016 11:25:31 PM patient arriving via ambulance from rehabilitation facility with chief complaint of hemoptysis and hematuria. Symptoms have been going on for the past couple weeks worse over the past 24 hours. History of chronic renal failure. Patient also on Coumadin for atrial fibrillation. Last INR check was 2.9 this morning. We will assess CBC to check for worsening anemia, PT PTT, type and screen if patient may need blood transfusion, patient will get chest x-ray to rule out pneumonia, EKG. 10/08/2016 12:30:53 PM orthostatics are negative. Vitals are stable. 10/08/2016 1:23:21 PM patient informed of all lab work results and imaging study results. Patient will be admitted for hemoptysis, acute on chronic anemia. Patient will receive one unit blood transfusion. Consent signed. Dr. Jacinto agrees with plan, spoke with admitting physician and MOD. (ISAAC BILLY) Departure Departure Time of Disposition: 1326 Condition: Stable Clinical Impression Primary Impression: Hemoptysis Secondary Impressions: Anemia Qualifiers: Anemia type: unspecified type Qualified Code: D64.9 - Anemia, unspecified Chronic renal failure Elevated INR Hematuria Referrals: ADAN FENTON MD (PCP/Family) Departure Forms: Customer Survey General Discharge Information (ISAAC BILLY) Departure Disposition: STILL A PATIENT Admission Note Spoke With: NARESH BAKER,JOSE ANGEL Zhou Documentation of Exam: Documentation of any treatments & extenuating circumstances including Concerns Regarding Discharge (functional status, medication knowledge or non-compliance, living conditions, etc.) that warrant an admission rather than observation: [PT IS HAVING ACTIVE HEMOPTYSIS AND HEMATURIA, HIS HCT IS DECRESASED TO 24 AND HE HAS A HX OF CAD AND WILL REQUIRE A TRANSFUSION. IF HEMOPTYSIS WORSENS OR CONTINUES WILL NEED REVERSAL OF INR AND/OR A BRONCHOSCOPY] PA/MEDIA AID Co-Sign Statement Statement: ED Attending supervision documentation- [X] I saw and evaluated the patient. I have also reviewed all the pertinent lab results and diagnostic results. I agree with the findings and the plan of care as documented in the PA's/MEDIA AID's documentation. [X] I have reviewed the ED Record and agree with the PA's/MEDIA AID's documentation. [] Additions or exceptions (if any) to the PAs/MEDIA AID's note and plan are summarized below: [] Resident Co-Sign Statement Statement: ED Attending supervision documentation- [] I saw and evaluated the patient. I have also reviewed all the pertinent lab results and diagnostic results. I agree with the findings and the plan of care as documented in the Resident's documentation. [] I have reviewed the ED Record and agree with the Resident's documentation. [] Additions or exceptions (if any) to the Resident's note and plan are summarized below: [] (CHRISTOPHER BAKER,ULICES Duong) Procedures Additional Procedures Additional Procedures: GUAIAC TEST Progress: Brought so guaiac-negative, nontender. (ANDRZEJ HAMM,ISAAC) Critical Care Note Critical Care Note Critical Care Time: 30-74 min (ISAAC BILLY)
[2016-10-08] MEDS ORDERED: SENNA S TABLET1 EACH PO (11:29)
[2016-10-08] MEDS ORDERED: FUROSEMIDE40 M1 PO (11:30)
[2016-10-08] MEDS ORDERED: LASIX20 M1 PO (11:31)
[2016-10-08 11:55] LABS: ABSOLUTE BASOPHIL COUNT 0.1 /CUMM (0.0-0.2); ABSOLUTE EOSINOPHIL COUNT 0 /CUMM (0.0-0.7); ABSOLUTE LYMPH COUNT 0.7 /CUMM (1.2-3.4); ABSOLUTE MONOCYTE COUNT 0.8 /CUMM (0.10-0.60); BASOPHIL % 0.7 % (0.0-2.0); EOSINOPHIL % 0 % (0-5); HEMATOCRIT 24.8 % (42-52); MEAN CORPUSCULAR HGB 28.1 PG (27.0-31.0); MEAN CORPUSCULAR HGB CONC 33.1 G/DL (33.0-37.0); MEAN CORPUSCULAR VOLUME 84.8 FL (80.0-94.0); MEAN PLATELET VOLUME 8.4 FL (7.4-10.4); PLATELET COUNT 81 /CUMM (130-400); RBC DISTRIBUTION WIDTH 15.7 % (11.5-14.5); RED BLOOD CELL CT 2.92 /CUMM (4.70-6.10); WHITE BLOOD CELL COUNT 15.6 /CUMM (4.8-10.8)
[2016-10-08 12:11] LABS: PT 31.9 SEC (9.4-12.5); PTT 31 SEC (25-37)
--- NOTE | 2016-10-08 12:46 | RADIOLOGY REPORT ---
EXAMINATION: XR PORTABLE CHEST CLINICAL INFORMATION: Cough. COMPARISON: Chest 09/14/2016. TECHNIQUE: Portable AP view of the chest was obtained. FINDINGS: There is elevated right hemidiaphragm. Both lungs are well-expanded and clear. Heart size and pulmonary vascularity is normal. Unipolar pacer electrode tip remains in SVC. No gross bony abnormality seen. IMPRESSION: Elevated right hemidiaphragm. No acute process seen in chest. No change from 09/14/2016 exam.
--- NOTE | 2016-10-08 13:16 | History & Physical ---
KAUSHIK ARMENDARIZ MD,FABIO 10/08/16 1316: General Information and HPI MD Statement: I have seen and personally examined AMELIA VALVERDE and documented this H&P. The patient is a 71 year old M who presented with a patient stated chief complaint of [epistaxsis and hemoptysis]. Source of Information: patient, family Exam Limitations: no limitations History of Present Illness: 71-year-old male with past medical history of atrial fibrillation on anticoagulation with Coumadin, prior myocardial infarct, chronic coronary artery disease with prior PCI, chronic left bundle-branch block, status post permanent pacemaker, EF 25%, hypertension, varicose veins, chronic anemia, thrombocytopenia, acute renal failure, , 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 According to the patient and his son he has been experiencing mild episodes for the last few weeks when they were discharged from the hospital. He has also noticed some pink tinge in the urine. Yesterday night he had an episode of profuse bleeding but he is unsure whether source of bleeding was his nose or throat. When inquired about hemoptysis he's not sure what he choked on the blood. He has noticed tinge of blood in his sputum. His INR was checked this morning in the rehabilitation facility and it was 2.9. He denied any fever or productive sputum production. Patient denied any chest pain, shortness of breath, shortness of breath on exertion, blood in stools, nausea, vomiting, gross hematemesis. Allergies/Medications Allergies: Coded Allergies: No Known Allergies (09/10/16) Home Med list Aspirin (Aspirin*) 81 MG TAB.CHEW 81 MG PO DAILY HEART HEALTH (Reported) Atorvastatin Calcium 20 MG TABLET 20 MG PO 1700 CHOLESTEROL Furosemide 40 MG TABLET 1 TAB PO Q48 WATER RETENTION (Reported) Furosemide (Lasix) 20 MG TABLET 1 TAB PO Q48 WATER RETENTION (Reported) Hydralazine HCl 25 MG TABLET 25 MG PO BID CARDIOMYOPATHY Isosorbide Mononitrate (Isosorbide Mononitrate ER) 30 MG TAB.ER.24H 30 MG PO DAILY CARDIOMYOPATHY Metoprolol Tartrate 50 MG TABLET 1 TAB PO BID AFIB (Reported) Multivit-Min/FA/Lycopen/Lutein (Centrum Silver Men Tablet) 300 MCG-600 MCG-300 MCG TABLET 1 TAB PO DAILY SUPPLEMENT (Reported) Omeprazole 20 MG CAPSULE.DR 40 MG PO DAILY AC GI PROPHYLAXIS Prednisone 20 MG TABLET 60 MG PO DAILY VASCULITIS Sennosides/Docusate Sodium (Senna S Tablet) 8.6 MG-50 MG TABLET 2 TAB PO QPM CONSTIPATION (Reported) Warfarin Sodium 5 MG TABLET 0.5 TAB PO 1700 BLOOD THINNER (Reported) Please check your INR regularly to keep in between 2-3. 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 child Services at Home: None Primary Language: Romanian Functional Ability ADLs Needs Assist: dressing, eating, toileting, bathing. IADLs Needs Assist: shopping, housework, finances, food prep, telephone, transportation, medication admin. Review of Systems Review of Systems Constitutional: Denies: chills, fever. EENTM: Denies: visual changes. Cardiovascular: Denies: chest pain, palpitations. Respiratory: Reports: hemoptysis. Denies: cough, short of breath. GI: Denies: constipation, melena, bloody stool. Genitourinary: Reports: hematuria. Musculoskeletal: Denies: back pain. Skin: Reports: change in skin color, erythema. All Other Systems: Reviewed and Negative Exam & Diagnostic Data Last 24 Hrs of Vital Signs/I&O Vital Signs Date Time Temp Pulse Resp B/P Pulse O2 O2 Flow FiO2 Ox Delivery Rate 10/08 1437 96.9 93 22 138/79 98 Room Air 10/08 1350 96.0 105 16 133/81 99 Room Air 10/08 1124 98 Room Air 10/08 1123 98.0 96 16 133/99 98 Room Air Intake & Output 10/08 1600 10/08 0800 10/08 0000 Intake Total Output Total Balance Patient 200 lb Weight Physical Exam General Appearance Alert, Oriented X3, Cooperative, No Acute Distress Skin SKIN BREAKDOWN LOWER EXTREMITIES COVERED WITH DRESSING, VARICOSE VEINS HEENT Atraumatic, PERRLA Neck Supple Cardiovascular Normal S1, Normal S2, IRREGULAR Lungs Clear to Auscultation, DECREASED AIR ENTRY AT THE LUNG BASES Abdomen Normal Bowel Sounds, Soft, No Tenderness Neurological Normal Speech, Normal Tone, Sensation Intact Extremities BILATERAL LOWER EXTREMITY 3+ EDEMA Vascular Normal Pulses Rectal Guiac Negative Last 24 Hrs of Labs/Hemal: Laboratory Tests 10/08/16 1140: Anion Gap 9, Estimated GFR 21 L, BUN/Creatinine Ratio 31.0 H, Glucose 167 H, Calcium 8.5, Total Bilirubin 0.7, AST 16 L, ALT 37, Alkaline Phosphatase 101, Troponin I 0.07, Total Protein 4.7 L, Albumin 2.0 L, Globulin 2.7, Albumin/ Globulin Ratio 0.7 L, PT 31.9 H, INR 3.07 H, APTT 31, CBC w Diff MAN DIFF ORDERED, RBC 2.92 L, MCV 84.8, MCH 28.1, RDW 15.7 H, MPV 8.4, Gran % 90.0 H, Lymphocytes % 4.3 L, Monocytes % 5.0, Eosinophils % 0, Basophils % 0.7, Absolute Granulocytes 14.0 H, Absolute Lymphocytes 0.7 L, Absolute Monocytes 0.8 H, Absolute Eosinophils 0, Absolute Basophils 0.1, Platelet Estimate DECREASED, Hypochromic-Microcytic 2+, Poikilocytosis 2+, Anisocytosis 1+, Ovalocytes 1+, PUBS MCHC 33.1 10/08/16 1100: Urine Color Pending, Urine Clarity Pending, Urine pH Pending, Ur Specific [place] Pending, Urine Protein Pending, Urine Ketones Pending, Urine Nitrite Pending, Urine Bilirubin Pending, Urine Urobilinogen Pending, Ur Leukocyte Esterase Pending, Ur Microscopic Pending, Urine Hemoglobin Pending, Urine Glucose Pending Microbiology 10/08 1237 URINE ROUT: Urine Culture - RECD Diagnostic Data CXR Results Elevated right hemidiaphragm. No acute process seen in chest. No change from exam. Assessment/Plan Assessment: 71-year-old male with past medical history of atrial fibrillation on anticoagulation with Coumadin, prior myocardial infarct, chronic coronary artery disease with prior PCI, chronic left bundle-branch block, status post permanent pacemaker, EF 25%, hypertension, varicose veins, chronic anemia, thrombocytopenia, acute renal failure, , 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 ? Hemoptysis/? Epistaxsis/ Hematuria/Anemia and Thrombocytopenia Patient had slightly elevated INR but complaining of these bleeding episodes on and off for the last 6 weeks. These episodes could be related to supratherapeutic INR but the possibility of vasculitis cannot be ruled out. Hemodynamically stable, not complaining of any shortness of breath or chest pain , feels fatigued sometimes. Type and crossmatch Emergency department patient was given 1 unit of blood. We will follow-up H&H Patient is on ASA 81mg and warfarin that we will hold for now Monitor Vitals Check Guiac stool test, guaiac done in the ED was negative Consult HEMATOLOGY oncology for anemia and thrombocytopenia Atrial fibrillation/history of left bundle branch block and coronary artery disease status post PCI status post pacemaker ejection fraction 25% Patient has a high chads risk score of 4 and has had developed complications of anticoagulation in the past. For now we are holding Coumadin for today, given possibility of hemoptysis. Consult cardiology in the morning about restarting anticoagulation Chronic renal insufficiency Etiology of chronic renal insufficiency is unknown. Last time patient required transient dialysis to improve his renal function. Possibility of vasculitis leading to renal injury has been discussed. Consult nephrology Hypersensitivity vasculitis with acute GN/ Varicose veins Patient was on low-dose of prednisone for vasculitis Consult wound care for the management of lower extremity skin breakdown, possibly stage II Patient also has right upper 2 every 4 edema without skin breakdown Keep Patient NPO Pain pathway DNR/DNI Nephrology consultation Pulmonary consultation Hematology consultation As Ranked By This Provider Problem List: 1. Acute kidney injury 2. Elevated INR 3. Anemia Qualifiers Anemia type: unspecified type Qualified Code: D64.9 - Anemia, unspecified Core Measures/Miscellaneous Acute Coronary Syndrome ACS Diagnosis: No Cerebrovascular Accident CVA/TIA Diagnosis: No Congestive Heart Failure CHF Diagnosis: No Venous Thromboembolism VTE Risk Factors: Acute medical illness, Age > 40 No [facility] VTE prophylaxis d/t: No contraindications No VTE Pharm Prophylaxis d/t: Active bleeding VTE Diagnosis: No VTE Type: NONE VTE Confirmed by (Test): NONE Severe Sepsis Severe Sepsis Present: No Septic Shock Septic Shock Present: No Miscellaneous Documentation Attending Case Discussed With: ADAN FENTON MD Primary Care Physician: ADAN FENTON MD Patient sees these Specialists Dr. AMES Level of Patient Care: Telemetry Consults Needed: 1 Consulting Specialty: Pulmonary Disease Consults Needed: 2 Consulting Specialty: Hematology/Oncology Consults Needed: 3 Consulting Specialty: Nephrology Consults Needed: 4 Consulting Specialty: Dermatology JOSE ANGEL INFANTE MD 10/08/16 1552: Exam & Diagnostic Data Last 24 Hrs of Vital Signs/I&O Vital Signs Date Time Temp Pulse Resp B/P Pulse O2 O2 Flow FiO2 Ox Delivery Rate 10/08 1437 96.9 93 22 138/79 98 Room Air 10/08 1350 96.0 105 16 133/81 99 Room Air 10/08 1124 98 Room Air 10/08 1123 98.0 96 16 133/99 98 Room Air Intake & Output 10/08 1600 10/08 0800 10/08 0000 Intake Total Output Total Balance Patient 200 lb Weight Attending MD Review Statement Attending Statement Attending MD Statement: examined this patient, discuss w/resident/PA/[employer], agreed w/resident/PA/[employer], reviewed EMR data (avail), reviewed images, amended to note Attending Assessment/Plan: Problems: -Worsening anemia -Hemoptysis -Hematuria -Chronic thrombocytopenia -Chronic anticoagulation - slightly elevated INR at 3.07 -Chronic atrial fibrillation -Status post PPM secondary to asystole and RBBB -Coronary artery disease status post CABG 2000 -Acute on chronic renal failure -Chronic venous insufficiency of the lower extremities -Mild to moderate fluid overload Plan: -Admit telemetry -Monitor H&H and platelets -Monitor INR -Discontinue ASA -Transfuse to hematocrit of 28 -I&O's -Nephrology consultation -Pulmonary consultation -Hematology consultation -Hematology consultation
[2016-10-09 00:52] VITALS: BP 130/76
--- NOTE | 2016-10-09 06:43 | Cons- Hematology ---
General Information and HPI Consulting Request Date of Consult: 10/09/16 Requested By: ADAN FENTON MD History of Present Illness: Mr. Dutton is a 71-year-old gentleman with a complex history of renal failure, hemoptysis and leukocytoclastic vasculitis. Patient was recently at [facility] with renal failure requiring dialysis, transient hemoptysis and significant dermatitis. No evidence for renal pulmonary syndromes were found, biopsy was not consistent with HS purpura and a renal biopsy was not performed. Patient exhibited transient thrombocytopenia. HIT was ruled out. Cryoglobulins were negative. No monoclonal proteins were discovered. Careful review of the patient's records suggested patient has had intermittent thrombocytopenia years. Patient is now admitted fatigue and rare hemoptysis. denies significant shortness of breath or chest pain. Patient denies blood loss from any orifice. Patient has been continued on corticosteroid therapy Allergies/Medications Allergies: Coded Allergies: No Known Allergies (09/10/16) Home Med List: Aspirin (Aspirin*) 81 MG TAB.CHEW 81 MG PO DAILY HEART HEALTH (Reported) Atorvastatin Calcium 20 MG TABLET 20 MG PO 1700 CHOLESTEROL Furosemide 40 MG TABLET 1 TAB PO Q48 WATER RETENTION (Reported) Furosemide (Lasix) 20 MG TABLET 1 TAB PO Q48 WATER RETENTION (Reported) Hydralazine HCl 25 MG TABLET 25 MG PO BID CARDIOMYOPATHY Isosorbide Mononitrate (Isosorbide Mononitrate ER) 30 MG TAB.ER.24H 30 MG PO DAILY CARDIOMYOPATHY Metoprolol Tartrate 50 MG TABLET 1 TAB PO BID AFIB (Reported) Multivit-Min/FA/Lycopen/Lutein (Centrum Silver Men Tablet) 300 MCG-600 MCG-300 MCG TABLET 1 TAB PO DAILY SUPPLEMENT (Reported) Omeprazole 20 MG CAPSULE.DR 40 MG PO DAILY AC GI PROPHYLAXIS Prednisone 20 MG TABLET 60 MG PO DAILY VASCULITIS Sennosides/Docusate Sodium (Senna S Tablet) 8.6 MG-50 MG TABLET 2 TAB PO QPM CONSTIPATION (Reported) Warfarin Sodium 5 MG TABLET 0.5 TAB PO 1700 BLOOD THINNER (Reported) Please check your INR regularly to keep in between 2-3. Current Medications: Current Medications Sig/Dagoberto Start time Last Medication Dose Route Stop Time Status Admin Acetaminophen 650 MG Q6 10/08 1800 AC 10/09 PO 0537 Atorvastatin Calcium 20 MG 1700 10/08 1700 AC 10/08 PO 1948 Bisacodyl 10 MG ONCE ONE 10/09 0015 DC 10/09 DE 10/09 0016 0100 Furosemide 20 MG Q48 10/10 1000 AC PO Furosemide 40 MG Q48 10/10 1000 AC PO Furosemide 20 MG ONCE ONE 10/08 1800 DC 10/08 IV 10/08 1801 1949 Hydralazine HCl 25 MG BID 10/08 2200 AC 10/08 PO 2107 Isosorbide 30 MG DAILY 10/09 1000 AC Mononitrate PO Metoprolol Tartrate 50 MG BID 10/08 2200 AC 10/08 PO 2107 Multivitamins 1 TAB DAILY 10/09 1000 AC PO Omeprazole 40 MG DAILY AC 10/09 0700 AC 10/09 PO 0536 Oxycodone HCl 5 MG Q8P PRN 10/08 1515 AC PO Oxycodone/ 1 TAB Q8P PRN 10/08 1515 AC Acetaminophen PO Patient Medication 1 UNIT ONE NR 10/08 1730 ME Teaching ED 10/08 1800 Patient Medication 1 UNIT ONE NR 10/08 1515 [facility] ED 10/08 1530 Patient Medication 1 UNIT ONE NR 10/08 1515 [facility] ED 10/08 1530 Patient Medication 1 UNIT ONE NR 10/08 1515 ME Teaching ED 10/08 1530 Prednisone 60 MG DAILY 10/09 1000 AC PO Senna/Docusate Sodium 2 TAB QPM 10/08 2200 AC 10/08 PO 210 Review of Systems Review of Systems: Patient denies headaches or dizziness. denies nausea vomiting or change in bowel habits. Patient denies dysuria or hematuria. Patient denies new bone aches or focal neurologic deficit. 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 [facility] Who Do You Live With? child Services at Home: None Primary Language: Danish Smoking Status: Unknown If Ever Smoked Functional Ability ADLs Needs Assist: dressing, eating, toileting, bathing. IADLs Needs Assist: shopping, housework, finances, food prep, telephone, transportation, medication admin. ECHO Results (as available) EF% 25 Exam & Diagnostic Data Vital Signs and I&O Vital Signs Date Time Temp Pulse Resp B/P Pulse O2 O2 Flow FiO2 Ox Delivery Rate 10/09 0052 98.6 87 18 130/76 97 Room Air 10/08 2107 88 142/62 10/08 2107 88 142/62 10/08 1640 97.0 97 16 132/70 99 Room Air 10/08 1437 96.9 93 22 138/79 98 Room Air 10/08 1350 96.0 105 16 133/81 99 Room Air 10/08 1124 98 Room Air 10/08 1123 98.0 96 16 133/99 98 Room Air Intake & Output 10/09 0800 10/09 0000 10/08 1600 Intake Total 100 200 Output Total 300 1650 Balance -200 -1450 Intake, Oral 100 200 Number 2 Bowel Movements Output, Urine 300 1650 Patient 220 lb 200 lb Weight Gen.: in NAD ENT: Sclera anicteric Chest: Normal respiratory effort, decreased breath sounds Cor: , no extra sounds Abdomen: Soft, bowel sounds present, no tenderness, no rebound Extremities: Without clubbing, cyanosis, or asymmetric edema Neurology: Alert and oriented 3, no gross deficit Skin: Dermatitis appears improved Last 48 Hours of Lab Results: Laboratory Tests 10/08 10/08 1140 1100 Chemistry Sodium (137 - 145 mmol/L) 136 L Potassium (3.5 - 5.1 mmol/L) 5.0 Chloride (98 - 107 mmol/L) 107 Carbon Dioxide (22 - 30 mmol/L) 21 L Anion Gap (5 - 16) 9 BUN (9 - 20 mg/dL) 93 H Creatinine (0.7 - 1.2 mg/dL) 3.0 H Estimated GFR (>60 ml/min) 21 L BUN/Creatinine Ratio (7 - 25 %) 31.0 H Glucose (65 - 99 mg/dL) 167 H Calcium (8.4 - 10.2 mg/dL) 8.5 Total Bilirubin (0.2 - 1.3 mg/dL) 0.7 AST (17 - 59 U/L) 16 L ALT (21 - 72 U/L) 37 Alkaline Phosphatase (< 127 U/L) 101 Troponin I (<0.11 ng/ml) 0.07 Total Protein (6.3 - 8.2 g/dL) 4.7 L Albumin (3.5 - 5.0 g/dL) 2.0 L Globulin (1.9 - 4.2 gm/dL) 2.7 Albumin/Globulin Ratio (1.1 - 2.2 %) 0.7 L Coagulation PT (9.4 - 12.5 SEC) 31.9 H INR (0.90 - 1.17) 3.07 H APTT (25 - 37 SEC) 31 Hematology CBC w Diff MAN DIFF ORDERED WBC (4.8 - 10.8 /CUMM) 15.6 H RBC (4.70 - 6.10 /CUMM) 2.92 L Hgb (14.0 - 18.0 G/DL) 8.2 L Hct (42 - 52 %) 24.8 L MCV (80.0 - 94.0 FL) 84.8 MCH (27.0 - 31.0 PG) 28.1 RDW (11.5 - 14.5 %) 15.7 H Plt Count (130 - 400 /CUMM) 81 L MPV (7.4 - 10.4 FL) 8.4 Gran % (42.2 - 75.2 %) 90.0 H Lymphocytes % (20.5 - 51.1 %) 4.3 L Monocytes % (1.7 - 9.3 %) 5.0 Eosinophils % (0 - 5 %) 0 Basophils % (0.0 - 2.0 %) 0.7 Absolute Granulocytes (1.4 - 6.5 /CUMM) 14.0 H Absolute Lymphocytes (1.2 - 3.4 /CUMM) 0.7 L Absolute Monocytes (0.10 - 0.60 /CUMM) 0.8 H Absolute Eosinophils (0.0 - 0.7 /CUMM) 0 Absolute Basophils (0.0 - 0.2 /CUMM) 0.1 Platelet Estimate (ADEQUATE) DECREASED Hypochromic-Microcytic 2+ Poikilocytosis 2+ Anisocytosis 1+ Ovalocytes 1+ PUBS MCHC (33.0 - 37.0 G/DL) 33.1 Urines Urine Color (YEL,AMB,STR) PINK H Urine Clarity (CLEAR) CLDY H Urine pH (5.0 - 8.0) 6.0 Ur Specific [place] (1.001 - 1.035) 1.010 Urine Protein (NEG,<30 MG/DL) 30 H Urine Ketones (NEG) NEG Urine Nitrite (NEG) NEG Urine Bilirubin (NEG) NEG Urine Urobilinogen (0.1 - 1.0 EU/dl) 0.2 Ur Leukocyte Esterase (NEG) LARGE H Ur Microscopic SEDIMENT EXAMINED Urine RBC (0 - 5 /HPF) 10-15 H Urine WBC (0 - 2 /HPF) 25-50 H Ur Epithelial Cells (NONE,FEW) RARE Urine Bacteria (NEG/NONE) PACKD H Urine Hemoglobin (NEG) LARGE H Urine Glucose (N MG/DL) NEG Peripheral smear-personally reviewed the patient's peripheral blood smear. A rare schistocytes was observed Assessment/Plan Assessment: 1. Multisystem organ issues include renal failure, very chronic thrombocytopenia, worsening anemia and vasculitis. Given the chronicity of the thrombocytopenia, this may or may not be related to his current situation. Patient has worsening anemia in the setting of renal failure and hemoptysis. It Seems unlikely that the patient's current condition is related to her primary hematologic process; ? Amyloid also seems unlikely. I have little suspicion for TTP. Recommend- Check stools for occult blood Check reticulocyte count Follow CBC Transfuse red cells as needed Await renal service input-? Need for kidney biopsy 2. Anticoagulation-patient remains on Coumadin A. fib Recommendations: .. Consult Acknowledgment - Thank you for your consult request.
[2016-10-09 08:00] VITALS: BP 128/84
[2016-10-09 08:03] LABS: ABSOLUTE BASOPHIL COUNT 0 /CUMM (0.0-0.2); ABSOLUTE EOSINOPHIL COUNT 0 /CUMM (0.0-0.7); ABSOLUTE GRANULOCYTE CT 12.3 /CUMM (1.4-6.5); ABSOLUTE LYMPH COUNT 0.8 /CUMM (1.2-3.4); ABSOLUTE MONOCYTE COUNT 0.8 /CUMM (0.10-0.60); BASOPHIL % 0 % (0.0-2.0); EOSINOPHIL % 0 % (0-5); GRANULOCYTE % 88.9 % (42.2-75.2); HEMATOCRIT 27.6 % (42-52); MEAN CORPUSCULAR VOLUME 85.5 FL (80.0-94.0); MEAN PLATELET VOLUME 8.2 FL (7.4-10.4); PLATELET COUNT 71 /CUMM (130-400); RBC DISTRIBUTION WIDTH 15.5 % (11.5-14.5); RED BLOOD CELL CT 3.23 /CUMM (4.70-6.10); WHITE BLOOD CELL COUNT 13.8 /CUMM (4.8-10.8)
[2016-10-09 08:42] LABS: PT 33.2 SEC (9.4-12.5)
--- NOTE | 2016-10-09 09:30 | PN- Housestaff ---
Subjective Follow-up For: Hemoptysis Complaints: still having dark colored sputum Tele-Events Since Last Visit: Atrial fibrillation with heart rate 77-101, with PVCs. Subjective: I followed up and examined the patient today. He is comfortable, lying in bed with bilateral legs elevated, his only complaints being he is still producing dark colored sputum, does not have any other complaints like fever, chills, chest pain, shortness of breath, palpitation, or increased cough. Vitals have been stable, overnight telemetry events noted as above. Review of Systems Constitutional: Reports: see HPI. Objective Last 24 Hrs of Vital Signs/I&O Vital Signs Date Time Temp Pulse Resp B/P Pulse O2 O2 Flow FiO2 Ox Delivery Rate 10/09 1600 97.8 97 16 118/72 98 Room Air 10/09 1047 88 18 126/80 97 Room Air 10/09 1043 88 126/80 10/09 0800 Room Air 10/09 0800 97.6 86 18 128/84 97 Room Air 10/09 0052 98.6 87 18 130/76 97 Room Air 10/08 2107 88 142/62 10/08 2107 88 142/62 Intake & Output 10/09 1600 10/09 0800 10/09 0000 Intake Total 315 100 200 Output Total 465 072 8468 Balance -560 -400 -1450 Intake, IV 75 Intake, Oral 240 100 200 Number 2 Bowel Movements Output, Urine 399 162 9666 Patient 99.79 kg Weight Physical Exam General Appearance: Alert, Oriented X3, Cooperative, No Acute Distress Other Physical Findings: Skin SKIN BREAKDOWN LOWER EXTREMITIES COVERED WITH DRESSING, VARICOSE VEINS HEENT Atraumatic, PERRLA Neck Supple Cardiovascular Normal S1, Normal S2, IRREGULAR Lungs Clear to Auscultation, DECREASED AIR ENTRY AT THE LUNG BASES B/L Abdomen Normal Bowel Sounds, Soft, No Tenderness Neurological Normal Speech, Normal Tone, Sensation Intact Extremities BILATERAL LOWER EXTREMITY 3+ EDEMA Vascular Normal Pulses Rectal Guiac Negative Patient produced sputum in front of me, but dark recio colored thick sputum was produced by the patient, which she mentioned that is no change from what he came in with. Current Medications: Current Medications Sig/Dagoberto Start time Last Medication Dose Route Stop Time Status Admin Acetaminophen 650 MG Q6P PRN 10/09 1300 AC PO Acetaminophen 650 MG Q6 10/08 1800 DC 10/09 PO 0537 Atorvastatin Calcium 20 MG 1700 10/08 1700 AC 10/09 PO 1637 Bisacodyl 10 MG ONCE ONE 10/09 0015 DC 10/09 CT 10/09 0016 0100 Furosemide 20 MG Q48 10/10 1000 DC PO Furosemide 40 MG Q48 10/10 1000 CAN PO Furosemide 20 MG Q48 10/09 1000 AC 10/09 PO 1043 Hydralazine HCl 25 MG BID 10/08 2200 AC 10/09 PO 2059 Isosorbide 30 MG DAILY 10/09 1000 AC 10/09 Mononitrate PO 1043 Metoprolol Tartrate 50 MG BID 10/08 2200 AC 10/09 PO 2100 Multivitamins 1 TAB DAILY 10/09 1000 AC 10/09 PO 1043 Omeprazole 40 MG DAILY AC 10/09 0700 AC 10/09 PO 0536 Oxycodone HCl 5 MG Q8P PRN 10/08 1515 AC PO Oxycodone/ 1 TAB Q8P PRN 10/08 1515 AC Acetaminophen PO Prednisone 60 MG DAILY 10/09 1000 AC 10/09 PO 1043 Senna/Docusate Sodium 2 TAB QPM 10/08 2200 AC 10/09 PO 2100 Sodium Chloride 1,000 ML Q13H 10/09 1300 AC 10/09 IV 1302 Last 24 Hrs of Lab/Hemal Results Last 24 Hrs of Labs/Mics: Laboratory Tests 10/09/16 0635: Anion Gap 10, Estimated GFR 21 L, BUN/Creatinine Ratio 29.7 H, PT 33.2 H, INR 3.20 H, CBC w Diff MAN DIFF ORDERED, RBC 3.23 L, MCV 85.5, MCH 29.0, RDW 15.5 H, MPV 8.2, Gran % 88.9 H, Lymphocytes % 5.4 L, Monocytes % 5.7, Eosinophils % 0, Basophils % 0 L, Absolute Granulocytes 12.3 H, Absolute Lymphocytes 0.8 L, Absolute Monocytes 0.8 H, Absolute Eosinophils 0, Absolute Basophils 0, Platelet Estimate DECREASED, Polychromasia 1+, Hypochromic-Microcytic 1+, Poikilocytosis 2+, Anisocytosis 1+, PUBS MCHC 34.0, MARTIN Titer Pending, Anti- Nuclear Antibody Pending Microbiology 10/09 1255 LOWER RESP: Respiratory Culture - COLB 10/09 1255 LOWER RESP: Gram Stain - COLB Assessment/Plan Assessment: 71-year-old male with past medical history of atrial fibrillation on anticoagulation with Coumadin, prior myocardial infarct, chronic coronary artery disease with prior PCI, chronic left bundle-branch block, status post permanent pacemaker, EF 25%, hypertension, varicose veins, chronic anemia, thrombocytopenia, acute renal failure, , 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 ? Hemoptysis/Anemia and Thrombocytopenia Patient had slightly elevated INR but complaining of these bleeding episodes on and off for the last 6 weeks. These episodes could be related to supratherapeutic INR but the possibility of vasculitis cannot be ruled out. Hemodynamically stable, not complaining of any shortness of breath or chest pain , feels fatigued sometimes. Guiac done in the ED was negative. Emergency department patient was given 1 unit of blood.Guiac done in the ED was negative. Of note, patient is also passing pink colored urine, but no gross hematuria. -Type and crossmatch DONE -Follow-up H&H was 9.4/27.6 -Patient is on ASA 81mg and warfarin that we will hold for now -Continue monitoring vitals -Pulm service consulted, who thinks that the source of his anemia is probably not hemodialysis but rather other causes such as renal, and that bronchoscopy has no role at this point of time. -Sputum produced earlier today was thick, dark recio in color, did not have gross blood in it, was sent for sputum culture. Will follow up on that. -Consider consulting Hematology/Oncology for anemia and thrombocytopenia; and urology service for hematuria. Atrial fibrillation/history of left bundle branch block and coronary artery disease status post PCI status post pacemaker ejection fraction 25% Patient has a high CHADS risk score of 4 and has had developed complications of anticoagulation in the past. For now we are holding Coumadin for today, given possibility of hemoptysis. -Awaiting Cardiology consultation. -INR this morning is 3.20 and increased from 3.07 so Coumadin is still on hold. Chronic renal insufficiency Etiology of chronic renal insufficiency is unknown. Last time patient required transient dialysis to improve his renal function. Possibility of vasculitis leading to renal injury has been discussed. Nephrology consulted, who thinks that the acute kidney injury could be due to multiple factors, including but not limited to NSAID use, prerenal, and the chronic form could be due to glomerulonephric disease, that needs further evaluations, and labs tests placed accordingly. -Lasix has been held for now -Start IV fluids at 75 mL per hour for 24 hour and reassess -Get renal ultrasound in the morning Hypersensitivity vasculitis with acute GN/ Varicose veins Patient was on low-dose of prednisone for vasculitis Patient could not get any biopsies done because of supratherapeutic INR in the past, thus definite diagnosis for his possible glomerular disease has not been made yet. Consult wound care for the management of lower extremity skin breakdown, possibly stage II Patient also has right upper 2 every 4 edema without skin breakdown Keep Patient NPO Pain pathway DNR/DNI Nephrology consultation Pulmonary consultation Hematology consultation Problem List: 1. Hemoptysis 2. Acute kidney injury Pain Ratin Pain Location: legs b/l Pain Goal: Pain 4 or less Pain Plan: prn avoid NSAIDs due to renal status Tomorrow's Labs & Rationales: CBC, BEP, INR, as the patient might be bleeding and f/u renal labs ordered today Consulting Request: Consulting Specialty: Dermatology
--- NOTE | 2016-10-09 09:41 | Cons- Pulmonary ---
General Information and HPI Consulting Request Date of Consult: 10/09/16 Requested By: porfirio Reason for Consult: Hemoptysis History of Present Illness: 71-year-old recently evaluated for renal failure thought to be secondary to vasculitis associated pulmonary component evidenced by hemoptysis. He was treated with high-dose steroids with improving renal function. He reports presents with worsening renal function and self-limited hemoptysis. His history is vague he's had no further hemoptysis since admission. He's been noted to be anemic and thrombocytopenic. He has no shortness breath remains on room air and his chest x-ray is without acute findings Allergies/Medications Allergies: Coded Allergies: No Known Allergies (09/10/16) Home Med List: Aspirin (Aspirin*) 81 MG TAB.CHEW 81 MG PO DAILY HEART HEALTH (Reported) Atorvastatin Calcium 20 MG TABLET 20 MG PO 1700 CHOLESTEROL Furosemide 40 MG TABLET 1 TAB PO Q48 WATER RETENTION (Reported) Furosemide (Lasix) 20 MG TABLET 1 TAB PO Q48 WATER RETENTION (Reported) Hydralazine HCl 25 MG TABLET 25 MG PO BID CARDIOMYOPATHY Isosorbide Mononitrate (Isosorbide Mononitrate ER) 30 MG TAB.ER.24H 30 MG PO DAILY CARDIOMYOPATHY Metoprolol Tartrate 50 MG TABLET 1 TAB PO BID AFIB (Reported) Multivit-Min/FA/Lycopen/Lutein (Centrum Silver Men Tablet) 300 MCG-600 MCG-300 MCG TABLET 1 TAB PO DAILY SUPPLEMENT (Reported) Omeprazole 20 MG CAPSULE.DR 40 MG PO DAILY AC GI PROPHYLAXIS Prednisone 20 MG TABLET 60 MG PO DAILY VASCULITIS Sennosides/Docusate Sodium (Senna S Tablet) 8.6 MG-50 MG TABLET 2 TAB PO QPM CONSTIPATION (Reported) Warfarin Sodium 5 MG TABLET 0.5 TAB PO 1700 BLOOD THINNER (Reported) Please check your INR regularly to keep in between 2-3. Review of Systems Review of Systems Constitutional: Denies: chills, fever. Cardiovascular: Reports: edema. Denies: chest pain. Respiratory: Reports: hemoptysis. Denies: cough, short of breath. GI: Denies: diarrhea, melena. Genitourinary: Reports: hematuria. 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 [facility] Who Do You Live With? child Services at Home: None Primary Language: Monegasque Smoking Status: Unknown If Ever Smoked Functional Ability ADLs Needs Assist: dressing, eating, toileting, bathing. IADLs Needs Assist: shopping, housework, finances, food prep, telephone, transportation, medication admin. ECHO Results (as available) EF% 25 Exam & Diagnostic Data Last 24 Hrs of Vital Signs/I&O Vital Signs Date Time Temp Pulse Resp B/P Pulse O2 O2 Flow FiO2 Ox Delivery Rate 10/09 0052 98.6 87 18 130/76 97 Room Air 10/08 2107 88 142/62 10/08 2107 88 142/62 10/08 1640 97.0 97 16 132/70 99 Room Air 10/08 1437 96.9 93 22 138/79 98 Room Air 10/08 1350 96.0 105 16 133/81 99 Room Air 10/08 1124 98 Room Air 10/08 1123 98.0 96 16 133/99 98 Room Air Intake & Output 10/09 1600 10/09 0800 10/09 0000 Intake Total 100 200 Output Total 300 1650 Balance -200 -1450 Intake, Oral 100 200 Number 2 Bowel Movements Output, Urine 300 1650 Patient 220 lb Weight Room air sat is 97% exam of his chest shows clear lung elaine cardiac exam shows regular S1 and S2 without murmurs abdominal exam is soft nontender chronic right lower extremity venous ulcer present on admission continues to heal and measures approximately 2 x 1 cm with red fill. Multilayer compression dressing has been removed and his edema has diminished Last 48 Hrs of Labs/Hemal: Laboratory Tests 10/09/16 0635: Anion Gap 10, Estimated GFR 21 L, BUN/Creatinine Ratio 29.7 H, PT 33.2 H, INR 3.20 H, CBC w Diff MAN DIFF ORDERED, RBC 3.23 L, MCV 85.5, MCH 29.0, RDW 15.5 H, MPV 8.2, Gran % 88.9 H, Lymphocytes % 5.4 L, Monocytes % 5.7, Eosinophils % 0, Basophils % 0 L, Absolute Granulocytes 12.3 H, Absolute Lymphocytes 0.8 L, Absolute Monocytes 0.8 H, Absolute Eosinophils 0, Absolute Basophils 0, Platelet Estimate DECREASED, Polychromasia 1+, Hypochromic-Microcytic 1+, Poikilocytosis 2+, Anisocytosis 1+, PUBS MCHC 34.0 10/08/16 1140: Anion Gap 9, Estimated GFR 21 L, BUN/Creatinine Ratio 31.0 H, Glucose 167 H, Calcium 8.5, Total Bilirubin 0.7, AST 16 L, ALT 37, Alkaline Phosphatase 101, Troponin I 0.07, Total Protein 4.7 L, Albumin 2.0 L, Globulin 2.7, Albumin/ Globulin Ratio 0.7 L, PT 31.9 H, INR 3.07 H, APTT 31, CBC w Diff MAN DIFF ORDERED, RBC 2.92 L, MCV 84.8, MCH 28.1, RDW 15.7 H, MPV 8.4, Gran % 90.0 H, Lymphocytes % 4.3 L, Monocytes % 5.0, Eosinophils % 0, Basophils % 0.7, Absolute Granulocytes 14.0 H, Absolute Lymphocytes 0.7 L, Absolute Monocytes 0.8 H, Absolute Eosinophils 0, Absolute Basophils 0.1, Platelet Estimate DECREASED, Hypochromic-Microcytic 2+, Poikilocytosis 2+, Anisocytosis 1+, Ovalocytes 1+, PUBS MCHC 33.1 10/08/16 1100: Urine Color PINK H, Urine Clarity CLDY H, Urine pH 6.0, Ur Specific [place] 1.010, Urine Protein 30 H, Urine Ketones NEG, Urine Nitrite NEG, Urine Bilirubin NEG, Urine Urobilinogen 0.2, Ur Leukocyte Esterase LARGE H, Ur Microscopic SEDIMENT EXAMINED, Urine RBC 10-15 H, Urine WBC 25-50 H, Ur Epithelial Cells RARE, Urine Bacteria PACKD H, Urine Hemoglobin LARGE H, Urine Glucose NEG Assessment/Plan Impression/Plan: 71-year-old gentleman with history of vasculitis and renal failure admitted with anemia reported hemoptysis in the setting of anticoagulation. I do not believe his hemoptysis is the cause of his anemia and likely related to coagulopathy and vasculitis Recommendations: Patient's hemoptysis has resolved no further intervention appears necessary there is no role for bronchoscopy at this point. Further management of his vasculitis by the primary care team and renal service Consult Acknowledgment - Thank you for your consult request.
[2016-10-09 10:47] VITALS: BP 126/80
--- NOTE | 2016-10-09 11:08 | Cons- Nephrology ---
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 Admit yesterday w epistaxis, ? hemoptysis, gross hematuria & worsening renal function. On outpt hi dose prednisone, warfarin, ASA, & Lasix. Renal function improved as outpt to BUN/Cr 49/1.6 on 09/30/16 but found increased 90/3.0 on admit. No ACEI, ARB, recent IV contrast, or documented hypotension, but thinks received ibuprofen at [facility]. Previous extensive serologic evaluation has been unrevealing w neg MARTIN, ANCA, cryglobulins, SPEP, Hep BSag & C Ab, & normal complements. IF of skin bx reported neg for IgA. No SOB or cough; no CP. Denies vomiting or diarrhea. Denies dysuria or voiding difficulty. Allergies/Medications Allergies: Coded Allergies: No Known Allergies (09/10/16) Home Med List: Aspirin (Aspirin*) 81 MG TAB.CHEW 81 MG PO DAILY HEART HEALTH (Reported) Atorvastatin Calcium 20 MG TABLET 20 MG PO 1700 CHOLESTEROL Furosemide 40 MG TABLET 1 TAB PO Q48 WATER RETENTION (Reported) Furosemide (Lasix) 20 MG TABLET 1 TAB PO Q48 WATER RETENTION (Reported) Hydralazine HCl 25 MG TABLET 25 MG PO BID CARDIOMYOPATHY Isosorbide Mononitrate (Isosorbide Mononitrate ER) 30 MG TAB.ER.24H 30 MG PO DAILY CARDIOMYOPATHY Metoprolol Tartrate 50 MG TABLET 1 TAB PO BID AFIB (Reported) Multivit-Min/FA/Lycopen/Lutein (Centrum Silver Men Tablet) 300 MCG-600 MCG-300 MCG TABLET 1 TAB PO DAILY SUPPLEMENT (Reported) Omeprazole 20 MG CAPSULE.DR 40 MG PO DAILY AC GI PROPHYLAXIS Prednisone 20 MG TABLET 60 MG PO DAILY VASCULITIS Sennosides/Docusate Sodium (Senna S Tablet) 8.6 MG-50 MG TABLET 2 TAB PO QPM CONSTIPATION (Reported) Warfarin Sodium 5 MG TABLET 0.5 TAB PO 1700 BLOOD THINNER (Reported) Please check your INR regularly to keep in between 2-3. Current Medications: Current Medications Sig/Dagoberto Start time Last Medication Dose Route Stop Time Status Admin Acetaminophen 650 MG Q6 10/08 1800 AC 10/09 PO 0537 Atorvastatin Calcium 20 MG 1700 10/08 1700 AC 10/08 PO 1948 Bisacodyl 10 MG ONCE ONE 10/09 0015 DC 10/09 OK 10/09 0016 0100 Furosemide 20 MG Q48 10/10 1000 DC PO Furosemide 40 MG Q48 10/10 1000 AC PO Furosemide 20 MG Q48 10/09 1000 AC 10/09 PO 1043 Furosemide 20 MG ONCE ONE 10/08 1800 DC 10/08 IV 10/08 1801 1949 Hydralazine HCl 25 MG BID 10/08 2200 AC 10/09 PO 1043 Isosorbide 30 MG DAILY 10/09 1000 AC 10/09 Mononitrate PO 1043 Metoprolol Tartrate 50 MG BID 10/08 2200 AC 10/09 PO 1043 Multivitamins 1 TAB DAILY 10/09 1000 AC 10/09 PO 1043 Omeprazole 40 MG DAILY AC 10/09 0700 AC 10/09 PO 0536 Oxycodone HCl 5 MG Q8P PRN 10/08 1515 AC PO Oxycodone/ 1 TAB Q8P PRN 10/08 1515 AC Acetaminophen PO Patient Medication 1 UNIT ONE NR 10/08 1730 [facility] Teaching ED 10/08 1800 Patient Medication 1 UNIT ONE NR 10/08 1515 [facility] ED 10/08 1530 Patient Medication 1 UNIT ONE NR 10/08 1515 [place] Teaching ED 10/08 1530 Patient Medication 1 UNIT ONE NR 10/08 1515 [facility] ED 10/08 1530 Prednisone 60 MG DAILY 10/09 1000 AC 10/09 PO 1043 Senna/Docusate Sodium 2 TAB QPM 10/08 2200 AC 10/08 PO 2106 Review of Systems Review of Systems Constitutional: Reports: no symptoms. EENTM: Reports: epistaxis. Cardiovascular: Reports: no symptoms. Respiratory: Reports: hemoptysis. GI: Reports: no symptoms. Genitourinary: Reports: hematuria. Musculoskeletal: Reports: no symptoms. Skin: Reports: no symptoms. Neurological/Psychological: Reports: no symptoms. Hematologic/Endocrine: Reports: bruising, bleeding. Immunologic/Allergic: Reports: no symptoms. 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 Assisted Facility Who Do You Live With? child Services at Home: None Primary Language: Maori Smoking Status: Unknown If Ever Smoked Functional Ability ADLs Needs Assist: dressing, eating, toileting, bathing. IADLs Needs Assist: shopping, housework, finances, food prep, telephone, transportation, medication admin. ECHO Results (as available) EF% 25 Exam & Diagnostic Data Vital Signs and I&O Vital Signs Date Time Temp Pulse Resp B/P Pulse O2 O2 Flow FiO2 Ox Delivery Rate 10/09 1047 88 18 126/80 97 Room Air 10/09 1043 88 126/80 10/09 0052 98.6 87 18 130/76 97 Room Air 10/08 2107 88 142/62 10/08 2107 88 142/62 10/08 1640 97.0 97 16 132/70 99 Room Air 10/08 1437 96.9 93 22 138/79 98 Room Air 10/08 1350 96.0 105 16 133/81 99 Room Air Intake & Output 10/09 1600 10/09 0400 10/08 1600 10/08 0400 10/07 1600 10/07 0400 Intake Total 100 200 Output Total 300 1650 Balance -200 -1450 Intake, Oral 100 200 Number 2 Bowel Movements Output, Urine 300 1650 Patient 220 lb 200 lb Weight Physical Exam General Appearance: well developed/nourished, no apparent distress, alert Head: atraumatic, normal appearance Eyes: Bilateral: normal appearance. 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 Skin: ecchymosis Lymphatic: no anterior cervical tammi, no axil Results Pertinent Lab Results: Laboratory Tests 10/09 10/08 0635 1140 Chemistry Sodium (137 - 145 mmol/L) 141 136 L Potassium (3.5 - 5.1 mmol/L) 4.3 5.0 Chloride (98 - 107 mmol/L) 109 H 107 Carbon Dioxide (22 - 30 mmol/L) 21 L 21 L Anion Gap (5 - 16) 10 9 BUN (9 - 20 mg/dL) 89 H 93 H Creatinine (0.7 - 1.2 mg/dL) 3.0 H 3.0 H Estimated GFR (>60 ml/min) 21 L 21 L BUN/Creatinine Ratio (7 - 25 %) 29.7 H 31.0 H Glucose (65 - 99 mg/dL) 167 H Calcium (8.4 - 10.2 mg/dL) 8.5 Total Bilirubin (0.2 - 1.3 mg/dL) 0.7 AST (17 - 59 U/L) 16 L ALT (21 - 72 U/L) 37 Alkaline Phosphatase (< 127 U/L) 101 Troponin I (<0.11 ng/ml) 0.07 Total Protein (6.3 - 8.2 g/dL) 4.7 L Albumin (3.5 - 5.0 g/dL) 2.0 L Globulin (1.9 - 4.2 gm/dL) 2.7 Albumin/Globulin Ratio (1.1 - 2.2 %) 0.7 L Coagulation PT (9.4 - 12.5 SEC) 33.2 H 31.9 H INR (0.90 - 1.17) 3.20 H 3.07 H APTT (25 - 37 SEC) 31 Hematology CBC w Diff MAN DIFF ORDERED MAN DIFF ORDERED WBC (4.8 - 10.8 /CUMM) 13.8 H 15.6 H RBC (4.70 - 6.10 /CUMM) 3.23 L 2.92 L Hgb (14.0 - 18.0 G/DL) 9.4 L 8.2 L Hct (42 - 52 %) 27.6 L 24.8 L MCV (80.0 - 94.0 FL) 85.5 84.8 MCH (27.0 - 31.0 PG) 29.0 28.1 RDW (11.5 - 14.5 %) 15.5 H 15.7 H Plt Count (130 - 400 /CUMM) 71 L 81 L MPV (7.4 - 10.4 FL) 8.2 8.4 Gran % (42.2 - 75.2 %) 88.9 H 90.0 H Lymphocytes % (20.5 - 51.1 %) 5.4 L 4.3 L Monocytes % (1.7 - 9.3 %) 5.7 5.0 Eosinophils % (0 - 5 %) 0 0 Basophils % (0.0 - 2.0 %) 0 L 0.7 Absolute Granulocytes (1.4 - 6.5 /CUMM) 12.3 H 14.0 H Absolute Lymphocytes (1.2 - 3.4 /CUMM) 0.8 L 0.7 L Absolute Monocytes (0.10 - 0.60 /CUMM) 0.8 H 0.8 H Absolute Eosinophils (0.0 - 0.7 /CUMM) 0 0 Absolute Basophils (0.0 - 0.2 /CUMM) 0 0.1 Platelet Estimate (ADEQUATE) DECREASED DECREASED Polychromasia 1+ Hypochromic-Microcytic 1+ 2+ Poikilocytosis 2+ 2+ Anisocytosis 1+ 1+ Ovalocytes 1+ PUBS MCHC (33.0 - 37.0 G/DL) 34.0 33.1 04/15 1100 Urines Urine Color (YEL,AMB,STR) PINK H Urine Clarity (CLEAR) CLDY H Urine pH (5.0 - 8.0) 6.0 Ur Specific [place] (1.001 - 1.035) 1.010 Urine Protein (NEG,<30 MG/DL) 30 H Urine Ketones (NEG) NEG Urine Nitrite (NEG) NEG Urine Bilirubin (NEG) NEG Urine Urobilinogen (0.1 - 1.0 EU/dl) 0.2 Ur Leukocyte Esterase (NEG) LARGE H Ur Microscopic SEDIMENT EXAMINED Urine RBC (0 - 5 /HPF) 10-15 H Urine WBC (0 - 2 /HPF) 25-50 H Ur Epithelial Cells (NONE,FEW) RARE Urine Bacteria (NEG/NONE) PACKD H Urine Hemoglobin (NEG) LARGE H Urine Glucose (N MG/DL) NEG Imaging/Other Studies: Portable AP view of the chest was obtained. FINDINGS: There is elevated right hemidiaphragm. Both lungs are well-expanded and clear. Heart size and pulmonary vascularity is normal. Unipolar pacer electrode tip remains in SVC. No gross bony abnormality seen. IMPRESSION: Elevated right hemidiaphragm. No acute process seen in chest. No change from 09/14/2016 exam Assessment/Plan Assessment/Recommendations Assessment: 1. CHARLES: ? prerenal due to volume contraction/diuresis in setting of possible NSAIDs. Can't r/o progression underlying GN despite steroids. Needs trial volume expansion as diuretics & NDSAIDs held. Obstruction unlikely but needs to be excluded, 2. 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 Very hi bleeding risk for renal bx. 3. Bleeding: mult sites including epistaxis, ??? true hemoptysis, skin & urine in setting of hi INR, ASA, & thrombocytopenia. Not clear related to true systemic vasculitis rather than coagulopathy. Recommendations: 1. d/c Lasix 2. IV NS 75 ml/hr x 24 hr 3. MARTIN, ANCA, a GBM AB 4. C3 & C4 5. renal US 6. repeat chemistries in AM 7. continue prednisone 8. no NSAIDs; hold on any RAAS interruption for now
--- NOTE | 2016-10-09 13:47 | PN- Att Addend ---
Attending Addendum Attending Brief Note Mr. Dutton appears comfortable today. He denies chest pain and shortness of breath. Notes mild anorexia but denies nausea, vomiting, pruritus. He is afebrile. His pulse, respiration, and blood pressure are stable and satisfactory. He is saturating well on room air. His lungs are clear to auscultation. Cardiovascular exam reveals an irregularly irregular rhythm with a systolic ejection murmur. His abdomen is soft and nontender. His extremities are elevated with Venodyne's in place. His WBC is decreasing and his platelet count is stable. His renal function and INR remain elevated. Input from renal and pulmonary is appreciated. Appropriate laboratory testing will be ordered. We will continue to follow his renal function and INR.
--- NOTE | 2016-10-09 15:23 | ULTRASOUND REPORT ---
EXAMINATION: US RETROPERITONEAL COMPLETE (RENAL) CLINICAL INFORMATION: Increasing creatinine level. Thrombocytopenia. Rash. Presumptive diagnosis of acute renal failure. Question vasculitis. Question glomerulonephritis. COMPARISON: CT scan of the abdomen and pelvis dated 08/28/2016. Renal ultrasound dated 08/28/2016. TECHNIQUE: Real-time imaging of the kidneys and bladder. FINDINGS: Evaluation is limited due to patient's body habitus. RIGHT KIDNEY: 10.3 x 6.0 x 5.1 cm (SAG x AP x TRV). The kidney is normal in size, contour, and echogenicity. Renal cortical thickness is normal. No calculi or focal parenchymal lesions. No hydronephrosis. LEFT KIDNEY: 14.3 x 5.9 x 6.7 cm (SAG x AP x TRV). The kidney is normal in size, contour, and echogenicity. Renal cortical thickness is normal. No calculi or focal parenchymal lesions. No hydronephrosis. BLADDER: Well-distended and normal. Only the right ureteral jet was demonstrated. Prevoid bladder volume is 248 mL. PROSTATE GLAND: Prostate gland is enlarged and heterogeneous, measuring 3.9 x 4.0 x 4.7 cm. IMPRESSION: Limited exam due to patient's body habitus. The appearance of kidneys is unchanged compared to prior renal ultrasound. No definite evidence of medical renal disease or renal obstruction.
[2016-10-09 16:00] VITALS: BP 118/72
[2016-10-09 21:32] VITALS: BP 126/78
[2016-10-10 00:16] VITALS: BP 134/84
--- NOTE | 2016-10-10 07:25 | PN- Housestaff ---
Subjective Follow-up For: Hemoptysis Atrial fibrillation Presumed glomerulonephritis Tele-Events Since Last Visit: Atrial fibrillation/flutter HR 85-101 PVCs, couplets and triplets Subjective: No acute events overnight. Patient is still bringing up blood-tinged sputum. He continues to have guaiac positive stools and hematuria with pink-tinged urine. He denies epistaxis. Patient complains that he could not sleep last night and reports that for the past two months his sleep has been irregular. He denies chest pain, palpitations or shortness of breath. Review of Systems Constitutional: Reports: see HPI. Objective Last 24 Hrs of Vital Signs/I&O Vital Signs Date Time Temp Pulse Resp B/P Pulse O2 O2 Flow FiO2 Ox Delivery Rate 10/10 1215 93 124/76 10/10 1215 93 124/76 10/10 1214 93 144/76 10/10 0838 97.7 85 20 140/86 98 Room Air 10/10 0016 98.0 96 20 134/84 97 Room Air 10/10 0000 Room Air 10/09 2132 90 126/78 10/09 2100 90 126/78 10/09 2059 90 126/78 10/09 1600 97.8 97 16 118/72 98 Room Air Intake & Output 10/10 1600 10/10 0800 10/10 0000 Intake Total 1125 345 Output Total 450 1850 Balance 675 -1505 Intake, IV 525 225 Intake, Oral 600 120 Number 1 Bowel Movements Output, Urine 450 1850 Physical Exam General Appearance: Alert, Oriented X3, No Acute Distress HEENT: Atraumatic, Mucous Membr. moist/pink Neck: Supple Cardiovascular: Normal S1, Normal S2, Irregular Lungs: Clear to Auscultation Abdomen: Soft, No Tenderness, Positive Bowel Sounds Extremities: No Clubbing, No Cyanosis, No Edema Current Medications: Current Medications Sig/Dagoberto Start time Last Medication Dose Route Stop Time Status Admin Acetaminophen 650 MG Q6P PRN 10/09 1300 AC PO Atorvastatin Calcium 20 MG 1700 10/08 1700 AC 10/09 PO 1637 Furosemide 20 MG Q48 10/09 1000 DC 10/09 PO 1043 Hydralazine HCl 25 MG BID 10/08 2200 AC 10/10 PO 1214 Isosorbide 30 MG DAILY 10/09 1000 AC 10/10 Mononitrate PO 1215 Metoprolol Tartrate 50 MG BID 10/08 2200 AC 10/10 PO 1215 Multivitamins 1 TAB DAILY 10/09 1000 AC 10/10 PO 1216 Omeprazole 40 MG DAILY AC 10/09 0700 AC 10/10 PO 0654 Oxycodone HCl 5 MG Q8P PRN 10/08 1515 AC PO Oxycodone/ 1 TAB Q8P PRN 10/08 1515 AC Acetaminophen PO Prednisone 60 MG DAILY 10/09 1000 AC 10/10 PO 1215 Senna/Docusate Sodium 2 TAB QPM 10/08 2200 AC 10/09 PO 2100 Sodium Chloride 1,000 ML Q13H 10/09 1300 AC 10/10 IV 0238 Last 24 Hrs of Lab/Hemal Results Last 24 Hrs of Labs/Mics: Laboratory Tests 10/10/16 0613: Anion Gap 11, Estimated GFR 22 L, BUN/Creatinine Ratio 29.6 H, PT 34.8 H, INR 3.35 H, CBC w Diff MAN DIFF ORDERED, RBC 3.11 L, MCV 84.8, MCH 29.1, RDW 15.8 H, MPV 8.2, Gran % 91.4 H, Lymphocytes % 3.7 L, Monocytes % 4.9, Eosinophils % 0, Basophils % 0 L, Absolute Granulocytes 17.2 H, Absolute Lymphocytes 0.7 L, Absolute Monocytes 0.9 H, Absolute Eosinophils 0, Absolute Basophils 0, Platelet Estimate DECREASED, Polychromasia 1+, Hypochromic-Microcytic 1+, Poikilocytosis 1+, Anisocytosis 1+, Ovalocytes 1+, PUBS MCHC 34.3 10/10/16 0600: ANCA Pending, Complement C3 Pending, Complement C4 Pending, Ref Lab Test Result Pending Orders Radiology Findings: Renal US: Limited exam due to patient's body habitus. The appearance of kidneys is unchanged compared to prior renal ultrasound. No definite evidence of medical renal disease or renal obstruction. 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 #Hemoptysis/epistaxis/hematuria: Unclear if this represent coagulopathy or is secondary to systemic vasculitis. H/H stable. INR has increased to 3.20 from 3.07 today. * Pulmonology following. Appreciate their recs on further evaluation and management of hemoptysis. * Hematology following. Appreciate their recs. * Continue to monitor H/H. * Continue to hold aspirin and warfarin. * Guaiac all stools. #Persistent atrial fibrillation: Meets cardiac indication for continued anticoagulation with elevated [id number] score of 4, however the risk of stroke needs to be weighed against the risk of bleeding. * Cardiology following. Appreciate their recs. * Continue metoprolol 50 mg PO BID. * Continue to hold warfarin for now as patient has developed complications of anticoagulation in the past. 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 Kidney biopsy would be too risky in the setting of bleeding. Renal US today unchanged from prior study and with no evidence of obstruction or medical renal disease. Previous extensive serologic evaluation including MARTIN, ANCA, cryoglobulins, SPEP, HbsAg and complement levels have been unrevealing. MARTIN negative this time. * Continue high-dose steroid therapy with prednisone 60 mg pO daily. * Continue slow volume expansion with NS @ 75 cc/hr. * ANCA and complement C3 and C4 pending. * No NSAIDs. Diet: Regular DVT PPx: ALPs CODE: DNR/DNI Problem List: 1. Persistent atrial fibrillation 2. Hemoptysis 3. Anemia 4. Thrombocytopenia 5. Hematuria 6. Guaiac positive stools 7. Glomerulonephritis 8. Chronic renal failure Pain Ratin Pain Location: N/A Pain Goal: Remain pain free Pain Plan: Tylenol 650 mg PO Q6H PRN for mild pain (scale 1-3) Roxicodone 5 mg PO Q8H PRN for moderate pain (scale 4-6) Percocet 1 tab PO Q6H PRN for severe pain (scale 7-10) Tomorrow's Labs & Rationales: CBC to monitor H/H in the setting of bleeding and platelets in the setting of thrombocytopenia BMP to monitor lytes and kidney function in the setting of CKD CBC to monitor H/H in the setting of bleeding and platelets in the setting of thrombocytopenia BMP to monitor lytes and kidney function in the setting of CKD
--- NOTE | 2016-10-10 07:38 | PN- Att Addend ---
Attending Addendum Attending Brief Note Attending note. Patient is awake alert complains of insomnia is swelling in the legs how decreased. His still having hematuria. Intake & Output 10/10 0800 10/10 0000 10/09 1600 Intake Total 345 315 Output Total 1850 1075 Balance -1505 -760 Intake, IV 225 75 Intake, Oral 120 240 Output, Urine 1850 1075 Vital Signs Date Time Temp Pulse Resp B/P Pulse O2 O2 Flow FiO2 Ox Delivery Rate 10/10 0016 98.0 96 20 134/84 97 Room Air 10/10 0000 Room Air 10/09 2132 90 126/78 10/09 2100 90 126/78 10/09 2059 90 126/78 10/09 1600 97.8 97 16 118/72 98 Room Air 10/09 1047 88 18 126/80 97 Room Air 10/09 1043 88 126/80 10/09 0800 Room Air 10/09 0800 97.6 86 18 128/84 97 Room Air Intake & Output 10/10 0800 10/10 0000 10/09 1600 Intake Total 345 315 Output Total 1850 1075 Balance -1505 -760 Intake, IV 225 75 Intake, Oral 120 240 Output, Urine 1850 1075 On examination Patient is awake alert oriented. Conjunctivae is pale sclerae anicteric neck is supple S1-S2 is normal Lungs air entry equal bilaterally no crepitations Abdomen is soft nontender bowel sounds are present Bipedal edema. 1+ with the left leg wrapped in a bandage. Current Medications Sig/Dagoberto Start time Last Medication Dose Route Stop Time Status Admin Acetaminophen 650 MG Q6P PRN 10/09 1300 AC PO Acetaminophen 650 MG Q6 10/08 1800 DC 10/09 PO 0537 Atorvastatin Calcium 20 MG 1700 10/08 1700 AC 10/09 PO 1637 Furosemide 40 MG Q48 10/10 1000 CAN PO Furosemide 20 MG Q48 10/09 1000 AC 10/09 PO 1043 Hydralazine HCl 25 MG BID 10/08 2200 AC 10/09 PO 2059 Isosorbide 30 MG DAILY 10/09 1000 AC 10/09 Mononitrate PO 1043 Metoprolol Tartrate 50 MG BID 10/08 2200 AC 10/09 PO 2100 Multivitamins 1 TAB DAILY 10/09 1000 AC 10/09 PO 1043 Omeprazole 40 MG DAILY AC 10/09 0700 AC 10/10 PO 0654 Oxycodone HCl 5 MG Q8P PRN 10/08 1515 AC PO Oxycodone/ 1 TAB Q8P PRN 10/08 1515 AC Acetaminophen PO Prednisone 60 MG DAILY 10/09 1000 AC 10/09 PO 1043 Senna/Docusate Sodium 2 TAB QPM 10/08 2200 AC 10/09 PO 2100 Sodium Chloride 1,000 ML Q13H 10/09 1300 AC 10/10 IV 0238 Microbiology Date/Time Procedure - Status Source Growth 10/09 1255 Respiratory Culture - COLB LOWER RESP 10/09 1255 Gram Stain - COLB LOWER RESP Assessment. Patient had slightly elevated INR but complaining of these bleeding episodes on and off for the last 6 weeks. These episodes could be related to supratherapeutic INR but the possibility of vasculitis cannot be ruled out. Hemodynamically stable, not complaining of any shortness of breath or chest pain , feels fatigued sometimes. Guiac done in the ED was negative. Get a hematology consult. Acute kidney injury in the setting of chronic kidney disease. Follow recommendations of the renal Atrial fibrillation/history of left bundle branch block and coronary artery disease status post PCI status post pacemaker ejection fraction 25% Patient has a high CHADS risk score of 4 and has had developed complications of anticoagulation in the past. For now we are holding Coumadin for today, given possibility of hemoptysis. -Awaiting Cardiology consultation. -INR this morning is 3.20 and increased from 3.07 so Coumadin is still on hold.
[2016-10-10 08:18] LABS: PT 34.8 SEC (9.4-12.5)
[2016-10-10 08:28] LABS: ABSOLUTE BASOPHIL COUNT 0 /CUMM (0.0-0.2); ABSOLUTE EOSINOPHIL COUNT 0 /CUMM (0.0-0.7); ABSOLUTE GRANULOCYTE CT 17.2 /CUMM (1.4-6.5); ABSOLUTE LYMPH COUNT 0.7 /CUMM (1.2-3.4); ABSOLUTE MONOCYTE COUNT 0.9 /CUMM (0.10-0.60); BASOPHIL % 0 % (0.0-2.0); EOSINOPHIL % 0 % (0-5); GRANULOCYTE % 91.4 % (42.2-75.2); HEMATOCRIT 26.4 % (42-52); MEAN CORPUSCULAR HGB 29.1 PG (27.0-31.0); MEAN CORPUSCULAR HGB CONC 34.3 G/DL (33.0-37.0); MEAN CORPUSCULAR VOLUME 84.8 FL (80.0-94.0); MEAN PLATELET VOLUME 8.2 FL (7.4-10.4); PLATELET COUNT 78 /CUMM (130-400); RBC DISTRIBUTION WIDTH 15.8 % (11.5-14.5); RED BLOOD CELL CT 3.11 /CUMM (4.70-6.10); WHITE BLOOD CELL COUNT 18.8 /CUMM (4.8-10.8)
[2016-10-10 08:38] VITALS: BP 140/86
--- NOTE | 2016-10-10 09:15 | PN- Nephrology ---
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 Suggestion: Continue on prednsone 60 mg a day. Would d/c Lasix and continue slow volulme expansion. Subjective Subjective: Patient with no new complaints, no further epistaxis. Objective Vital Signs and I&Os Vital Signs Date Time Temp Pulse Resp B/P Pulse O2 O2 Flow FiO2 Ox Delivery Rate 10/10 0838 97.7 85 20 140/86 98 Room Air 10/10 0016 98.0 96 20 134/84 97 Room Air 10/10 0000 Room Air 10/09 2132 90 126/78 10/09 2100 90 126/78 10/09 2059 90 126/78 10/09 1600 97.8 97 16 118/72 98 Room Air 10/09 1047 88 18 126/80 97 Room Air 10/09 1043 88 126/80 Intake & Output 10/10 1600 10/10 0400 10/09 1600 10/09 0400 10/08 1600 10/08 0400 Intake Total 1125 345 415 200 Output Total 450 1850 1375 1650 Balance 675 -1505 -960 -1450 Intake, IV 525 225 75 Intake, Oral 600 120 340 200 Number 1 2 Bowel Movements Output, Urine 450 1850 1375 1650 Patient 220 lb 200 lb Weight Physical Exam: NAD. Lethargic and falls asleep mid sentence. Lungs: clear CV: no rub Abd: non-tender Exts: no edema Neuro: conversant but falls asleep. Current Medications: Current Medications Sig/Dagoberto Start time Last Medication Dose Route Stop Time Status Admin Acetaminophen 650 MG Q6P PRN 10/09 1300 AC PO Acetaminophen 650 MG Q6 10/08 1800 DC 10/09 PO 0537 Atorvastatin Calcium 20 MG 1700 10/08 1700 AC 10/09 PO 1637 Furosemide 40 MG Q48 10/10 1000 CAN PO Furosemide 20 MG Q48 10/09 1000 AC 10/09 PO 1043 Hydralazine HCl 25 MG BID 10/080 AC 10/09 PO 205 Isosorbide 30 MG DAILY 10/09 1000 AC 10/09 Mononitrate PO 1043 Metoprolol Tartrate 50 MG BID 10/08 2200 AC 10/09 PO 2100 Multivitamins 1 TAB DAILY 10/09 1000 AC 10/09 PO 1043 Omeprazole 40 MG DAILY AC 10/09 0700 AC 10/10 PO 0654 Oxycodone HCl 5 MG Q8P PRN 10/08 1515 AC PO Oxycodone/ 1 TAB Q8P PRN 10/08 1515 AC Acetaminophen PO Prednisone 60 MG DAILY 10/09 1000 AC 10/09 PO 1043 Senna/Docusate Sodium 2 TAB QPM 10/08 2200 AC 10/09 PO 2100 Sodium Chloride 1,000 ML Q13H 10/09 1300 AC 10/10 IV 0238 Results Pertinent Lab Results: Laboratory Tests 10/10 10/10 0613 0600 Chemistry Sodium (137 - 145 mmol/L) 139 Potassium (3.5 - 5.1 mmol/L) 4.1 Chloride (98 - 107 mmol/L) 108 H Carbon Dioxide (22 - 30 mmol/L) 20 L Anion Gap (5 - 16) 11 BUN (9 - 20 mg/dL) 83 H Creatinine (0.7 - 1.2 mg/dL) 2.8 H Estimated GFR (>60 ml/min) 22 L BUN/Creatinine Ratio (7 - 25 %) 29.6 H Coagulation PT (9.4 - 12.5 SEC) 34.8 H INR (0.90 - 1.17) 3.35 H Hematology CBC w Diff MAN DIFF ORDERED WBC (4.8 - 10.8 /CUMM) 18.8 H RBC (4.70 - 6.10 /CUMM) 3.11 L Hgb (14.0 - 18.0 G/DL) 9.1 L Hct (42 - 52 %) 26.4 L MCV (80.0 - 94.0 FL) 84.8 MCH (27.0 - 31.0 PG) 29.1 RDW (11.5 - 14.5 %) 15.8 H Plt Count (130 - 400 /CUMM) 78 L MPV (7.4 - 10.4 FL) 8.2 Gran % (42.2 - 75.2 %) 91.4 H Lymphocytes % (20.5 - 51.1 %) 3.7 L Monocytes % (1.7 - 9.3 %) 4.9 Eosinophils % (0 - 5 %) 0 Basophils % (0.0 - 2.0 %) 0 L Absolute Granulocytes (1.4 - 6.5 /CUMM) 17.2 H Absolute Lymphocytes (1.2 - 3.4 /CUMM) 0.7 L Absolute Monocytes (0.10 - 0.60 /CUMM) 0.9 H Absolute Eosinophils (0.0 - 0.7 /CUMM) 0 Absolute Basophils (0.0 - 0.2 /CUMM) 0 Platelet Estimate (ADEQUATE) DECREASED Polychromasia 1+ Hypochromic-Microcytic 1+ Poikilocytosis 1+ Anisocytosis 1+ Ovalocytes 1+ PUBS MCHC (33.0 - 37.0 G/DL) 34.3 Immunology ANCA Pending Complement C3 Pending Complement C4 Pending Miscellaneous Ref Lab Test Result Pending 10/09 10/08 0635 1140 Chemistry Sodium (137 - 145 mmol/L) 141 136 L Potassium (3.5 - 5.1 mmol/L) 4.3 5.0 Chloride (98 - 107 mmol/L) 109 H 107 Carbon Dioxide (22 - 30 mmol/L) 21 L 21 L Anion Gap (5 - 16) 10 9 BUN (9 - 20 mg/dL) 89 H 93 H Creatinine (0.7 - 1.2 mg/dL) 3.0 H 3.0 H Estimated GFR (>60 ml/min) 21 L 21 L BUN/Creatinine Ratio (7 - 25 %) 29.7 H 31.0 H Glucose (65 - 99 mg/dL) 167 H Calcium (8.4 - 10.2 mg/dL) 8.5 Total Bilirubin (0.2 - 1.3 mg/dL) 0.7 AST (17 - 59 U/L) 16 L ALT (21 - 72 U/L) 37 Alkaline Phosphatase (< 127 U/L) 101 Troponin I (<0.11 ng/ml) 0.07 Total Protein (6.3 - 8.2 g/dL) 4.7 L Albumin (3.5 - 5.0 g/dL) 2.0 L Globulin (1.9 - 4.2 gm/dL) 2.7 Albumin/Globulin Ratio (1.1 - 2.2 %) 0.7 L Coagulation PT (9.4 - 12.5 SEC) 33.2 H 31.9 H INR (0.90 - 1.17) 3.20 H 3.07 H APTT (25 - 37 SEC) 31 Hematology CBC w Diff MAN DIFF ORDERED MAN DIFF ORDERED WBC (4.8 - 10.8 /CUMM) 13.8 H 15.6 H RBC (4.70 - 6.10 /CUMM) 3.23 L 2.92 L Hgb (14.0 - 18.0 G/DL) 9.4 L 8.2 L Hct (42 - 52 %) 27.6 L 24.8 L MCV (80.0 - 94.0 FL) 85.5 84.8 MCH (27.0 - 31.0 PG) 29.0 28.1 RDW (11.5 - 14.5 %) 15.5 H 15.7 H Plt Count (130 - 400 /CUMM) 71 L 81 L MPV (7.4 - 10.4 FL) 8.2 8.4 Gran % (42.2 - 75.2 %) 88.9 H 90.0 H Lymphocytes % (20.5 - 51.1 %) 5.4 L 4.3 L Monocytes % (1.7 - 9.3 %) 5.7 5.0 Eosinophils % (0 - 5 %) 0 0 Basophils % (0.0 - 2.0 %) 0 L 0.7 Absolute Granulocytes (1.4 - 6.5 /CUMM) 12.3 H 14.0 H Absolute Lymphocytes (1.2 - 3.4 /CUMM) 0.8 L 0.7 L Absolute Monocytes (0.10 - 0.60 /CUMM) 0.8 H 0.8 H Absolute Eosinophils (0.0 - 0.7 /CUMM) 0 0 Absolute Basophils (0.0 - 0.2 /CUMM) 0 0.1 Platelet Estimate (ADEQUATE) DECREASED DECREASED Polychromasia 1+ Hypochromic-Microcytic 1+ 2+ Poikilocytosis 2+ 2+ Anisocytosis 1+ 1+ Ovalocytes 1+ PUBS MCHC (33.0 - 37.0 G/DL) 34.0 33.1 Immunology MARTIN Titer Pending Anti-Nuclear Antibody Pending 10/08 1100 Urines Urine Color (YEL,AMB,STR) PINK H Urine Clarity (CLEAR) CLDY H Urine pH (5.0 - 8.0) 6.0 Ur Specific Corrigan (1.001 - 1.035) 1.010 Urine Protein (NEG,<30 MG/DL) 30 H Urine Ketones (NEG) NEG Urine Nitrite (NEG) NEG Urine Bilirubin (NEG) NEG Urine Urobilinogen (0.1 - 1.0 EU/dl) 0.2 Ur Leukocyte Esterase (NEG) LARGE H Ur Microscopic SEDIMENT EXAMINED Urine RBC (0 - 5 /HPF) 10-15 H Urine WBC (0 - 2 /HPF) 25-50 H Ur Epithelial Cells (NONE,FEW) RARE Urine Bacteria (NEG/NONE) PACKD H Urine Hemoglobin (NEG) LARGE H Urine Glucose (N MG/DL) NEG
--- NOTE | 2016-10-10 12:49 | Cons- Cardiology ---
General Information and HPI Consulting Request Date of Consult: 10/10/16 Requested By: ADAN FENTON MD Reason for Consult: Atrial fibrillation Source of Information: patient, family, old records History of Present Illness: This is a 71-year-old male with a complex past medical history including recent prolonged admission for renal failure with suspicion for HSP, thrombocytopenia, left bundle-branch block with progressive cardiomyopathy with the prolonged pauses on telemetry requiring recent single lead permanent pacemaker, NSVT, hemoptysis, coronary artery disease with prior MS, venous insufficiency, atrial fibrillation on anticoagulation with Coumadin, and history of hypertension. He was discharged after a prolonged hospitalization in August and now presents with intermittent epistaxis with the some hemoptysis which he says has been occurring over the last few weeks since discharge. He also had some pink tinged urine. Denies associated chest pain, dyspnea, palpitations, syncope, orthopnea, or paroxysmal nocturnal dyspnea. Denies hematemesis or hematochezia. Denies fevers. On my interview with the patient this morning he was resting comfortably and reports minimal residual hemoptysis. Allergies/Medications Allergies: Coded Allergies: No Known Allergies (09/10/16) Home Med List: Aspirin (Aspirin*) 81 MG TAB.CHEW 81 MG PO DAILY HEART HEALTH (Reported) Atorvastatin Calcium 20 MG TABLET 20 MG PO 1700 CHOLESTEROL Furosemide 40 MG TABLET 1 TAB PO Q48 WATER RETENTION (Reported) Furosemide (Lasix) 20 MG TABLET 1 TAB PO Q48 WATER RETENTION (Reported) Hydralazine HCl 25 MG TABLET 25 MG PO BID CARDIOMYOPATHY Isosorbide Mononitrate (Isosorbide Mononitrate ER) 30 MG TAB.ER.24H 30 MG PO DAILY CARDIOMYOPATHY Metoprolol Tartrate 50 MG TABLET 1 TAB PO BID AFIB (Reported) Multivit-Min/FA/Lycopen/Lutein (Centrum Silver Men Tablet) 300 MCG-600 MCG-300 MCG TABLET 1 TAB PO DAILY SUPPLEMENT (Reported) Omeprazole 20 MG CAPSULE.DR 40 MG PO DAILY AC GI PROPHYLAXIS Prednisone 20 MG TABLET 60 MG PO DAILY VASCULITIS Sennosides/Docusate Sodium (Senna S Tablet) 8.6 MG-50 MG TABLET 2 TAB PO QPM CONSTIPATION (Reported) Warfarin Sodium 5 MG TABLET 0.5 TAB PO 1700 BLOOD THINNER (Reported) Please check your INR regularly to keep in between 2-3. Current Medications: Current Medications Sig/Dagoberto Start time Last Medication Dose Route Stop Time Status Admin Acetaminophen 650 MG Q6P PRN 10/09 1300 AC PO Acetaminophen 650 MG Q6 10/08 1800 DC 10/09 PO 0537 Atorvastatin Calcium 20 MG 1700 10/08 1700 AC 10/09 PO 1637 Furosemide 40 MG Q48 10/10 1000 CAN PO Furosemide 20 MG Q48 10/09 1000 DC 10/09 PO 1043 Hydralazine HCl 25 MG BID 10/08 2200 AC 10/10 PO 1214 Isosorbide 30 MG DAILY 10/09 1000 AC 10/10 Mononitrate PO 1215 Metoprolol Tartrate 50 MG BID 10/08 2200 AC 10/10 PO 1215 Multivitamins 1 TAB DAILY 10/09 1000 AC 10/10 PO 1216 Omeprazole 40 MG DAILY AC 10/09 0700 AC 10/10 PO 0654 Oxycodone HCl 5 MG Q8P PRN 10/08 1515 AC PO Oxycodone/ 1 TAB Q8P PRN 10/08 1515 AC Acetaminophen PO Prednisone 60 MG DAILY 10/09 1000 AC 10/10 PO 1215 Senna/Docusate Sodium 2 TAB QPM 10/08 2200 AC 10/09 PO 2100 Sodium Chloride 1,000 ML Q13H 10/09 1300 AC 10/10 IV 0238 Review of Systems Review of Systems: Review of systems as per HPI. The remainder of a 10 point review of systems was reviewed and was otherwise negative. 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 Alf Facility Who Do You Live With? child Services at Home: None Primary Language: [place] Islander Smoking Status: Unknown If Ever Smoked Functional Ability ADLs Needs Assist: dressing, eating, toileting, bathing. IADLs Needs Assist: shopping, housework, finances, food prep, telephone, transportation, medication admin. ECHO Results (as available) EF% 25 Exam & Diagnostic Data Vital Signs and I&O Vital Signs Date Time Temp Pulse Resp B/P Pulse O2 O2 Flow FiO2 Ox Delivery Rate 10/10 1215 93 124/76 10/10 1215 93 124/76 10/10 1214 93 144/76 10/10 0838 97.7 85 20 140/86 98 Room Air 10/10 0016 98.0 96 20 134/84 97 Room Air 10/10 0000 Room Air 10/09 2132 90 126/78 10/09 2100 90 126/78 10/09 2059 90 126/78 10/09 1600 97.8 97 16 118/72 98 Room Air Intake & Output 10/10 1600 10/10 0800 10/10 0000 10/09 1600 10/09 0800 10/09 0000 Intake Total 1125 345 315 100 200 Output Total 450 1850 804 150 8731 Balance 675 -1505 -560 -400 -1450 Intake, IV 525 225 75 Intake, Oral 600 120 240 100 200 Number 1 2 Bowel Movements Output, Urine 450 1850 021 802 7213 Patient 220 lb Weight Physical Exam: General: no apparent distress. Alert. Eyes: No obvious scleral icterus. HEENT: No jugular venous distention. Cardiovascular: Normal intensity S1/S2. Irregular. Left-sided pacemaker. Respiratory: no rales or ronchi Abdomen: no guarding or rebound tenderness. Musculoskeletal: No clubbing or cyanosis noted, no edema, lower extremity wound dressing noted Skin: warm Neurologic: No gross focal deficits noted. Labs/Hemal Results: Laboratory Tests 10/10 10/10 0613 0600 Chemistry Sodium (137 - 145 mmol/L) 139 Potassium (3.5 - 5.1 mmol/L) 4.1 Chloride (98 - 107 mmol/L) 108 H Carbon Dioxide (22 - 30 mmol/L) 20 L Anion Gap (5 - 16) 11 BUN (9 - 20 mg/dL) 83 H Creatinine (0.7 - 1.2 mg/dL) 2.8 H Estimated GFR (>60 ml/min) 22 L BUN/Creatinine Ratio (7 - 25 %) 29.6 H Coagulation PT (9.4 - 12.5 SEC) 34.8 H INR (0.90 - 1.17) 3.35 H Hematology CBC w Diff MAN DIFF ORDERED WBC (4.8 - 10.8 /CUMM) 18.8 H RBC (4.70 - 6.10 /CUMM) 3.11 L Hgb (14.0 - 18.0 G/DL) 9.1 L Hct (42 - 52 %) 26.4 L MCV (80.0 - 94.0 FL) 84.8 MCH (27.0 - 31.0 PG) 29.1 RDW (11.5 - 14.5 %) 15.8 H Plt Count (130 - 400 /CUMM) 78 L MPV (7.4 - 10.4 FL) 8.2 Gran % (42.2 - 75.2 %) 91.4 H Lymphocytes % (20.5 - 51.1 %) 3.7 L Monocytes % (1.7 - 9.3 %) 4.9 Eosinophils % (0 - 5 %) 0 Basophils % (0.0 - 2.0 %) 0 L Absolute Granulocytes (1.4 - 6.5 /CUMM) 17.2 H Absolute Lymphocytes (1.2 - 3.4 /CUMM) 0.7 L Absolute Monocytes (0.10 - 0.60 /CUMM) 0.9 H Absolute Eosinophils (0.0 - 0.7 /CUMM) 0 Absolute Basophils (0.0 - 0.2 /CUMM) 0 Platelet Estimate (ADEQUATE) DECREASED Polychromasia 1+ Hypochromic-Microcytic 1+ Poikilocytosis 1+ Anisocytosis 1+ Ovalocytes 1+ PUBS MCHC (33.0 - 37.0 G/DL) 34.3 Immunology ANCA Pending Complement C3 Pending Complement C4 Pending Miscellaneous Ref Lab Test Result Pending 10/09 0635 Chemistry Sodium (137 - 145 mmol/L) 141 Potassium (3.5 - 5.1 mmol/L) 4.3 Chloride (98 - 107 mmol/L) 109 H Carbon Dioxide (22 - 30 mmol/L) 21 L Anion Gap (5 - 16) 10 BUN (9 - 20 mg/dL) 89 H Creatinine (0.7 - 1.2 mg/dL) 3.0 H Estimated GFR (>60 ml/min) 21 L BUN/Creatinine Ratio (7 - 25 %) 29.7 H Coagulation PT (9.4 - 12.5 SEC) 33.2 H INR (0.90 - 1.17) 3.20 H Hematology CBC w Diff MAN DIFF ORDERED WBC (4.8 - 10.8 /CUMM) 13.8 H RBC (4.70 - 6.10 /CUMM) 3.23 L Hgb (14.0 - 18.0 G/DL) 9.4 L Hct (42 - 52 %) 27.6 L MCV (80.0 - 94.0 FL) 85.5 MCH (27.0 - 31.0 PG) 29.0 RDW (11.5 - 14.5 %) 15.5 H Plt Count (130 - 400 /CUMM) 71 L MPV (7.4 - 10.4 FL) 8.2 Gran % (42.2 - 75.2 %) 88.9 H Lymphocytes % (20.5 - 51.1 %) 5.4 L Monocytes % (1.7 - 9.3 %) 5.7 Eosinophils % (0 - 5 %) 0 Basophils % (0.0 - 2.0 %) 0 L Absolute Granulocytes (1.4 - 6.5 /CUMM) 12.3 H Absolute Lymphocytes (1.2 - 3.4 /CUMM) 0.8 L Absolute Monocytes (0.10 - 0.60 /CUMM) 0.8 H Absolute Eosinophils (0.0 - 0.7 /CUMM) 0 Absolute Basophils (0.0 - 0.2 /CUMM) 0 Platelet Estimate (ADEQUATE) DECREASED Polychromasia 1+ Hypochromic-Microcytic 1+ Poikilocytosis 2+ Anisocytosis 1+ PUBS MCHC (33.0 - 37.0 G/DL) 34.0 Immunology MARTIN Titer ND Anti-Nuclear Antibody (NEG,1:40) NEG 1:40 IFA ASSAY Diagnostic Data EKG Results Tracing personally reviewed shows atrial fibrillation at 109 bpm with left bundle-branch block CXR Results IMPRESSION: Elevated right hemidiaphragm. No acute process seen in chest. No change from 09/14/2016 exam. Other Results Echo from August CONCLUSIONS Severely reduced left ventricular systolic function with akinesia of the inferior wall. Mild Aortic regurgitation and mild to moderate Mitral regurgitation with mild pulmonary hypertension. Telemetry tracings were personally reviewed and showed atrial fibrillation with controlled ventricular response rate Assessment/Plan Assessment/Plan 1. 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 Persistent atrial fibrillation on anticoagulation with Coumadin 3. History of coronary artery disease/prior myocardial infarction with mild to moderate left ventricular dysfunction by previous noninvasive imaging, now with severe LV dysfunction 4. Epistaxis/hemoptysis/hematuria 5. Anemia 6. Chronic left bundle branch block 7. Hx HTN 8. Venous insufficiency 9. Thrombocytopenia 10. Prolonged pauses, s/p MRI compatible single lead permanent pacemaker 09/09/16 The patient's INR was noted to be slightly therapeutic. From a cardiac standpoint he meets indication for continued anticoagulation based on persistent atrial fibrillation with elevated CHADS-Vasc score as he is at risk of stroke without anticoagulation. This obviously needs to be weighed against the bleeding risk in the setting of epistaxes/hemoptysis and hematuria with thrombocytopenia. Defer additional workup to pulmonary, hematology, and urology; might benefit from ENT evaluation as it is possible the hemoptysis is more due to epistaxis. If cleared to continue on anticoagulation would probably favor not restarting the aspirin. Lasix is on hold as per nephrology recommendations. He does not appear to be in decompensated CHF. Continue the beta freddy. He is not on ARB due to the kidney disease. Jonh Stanley MD [facility] Consult Acknowledgment - Thank you for your consult request.
[2016-10-10 15:30] VITALS: BP 142/80
[2016-10-11 00:59] VITALS: BP 122/80
--- NOTE | 2016-10-11 07:07 | PN- Housestaff ---
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 Patient seen and examined this morning. Hemoptysis has resolved. He reports minimal epistaxis with few drops of blood. He denies chest pain, palpitations or shortness of breath. Hematuria has improved and urine appears less bloody. Patient denies dysuria. Review of Systems Constitutional: Reports: see HPI. Objective Last 24 Hrs of Vital Signs/I&O Vital Signs Date Time Temp Pulse Resp B/P Pulse O2 O2 Flow FiO2 Ox Delivery Rate 10/11 0814 97.4 105 17 149/85 98 Room Air 10/11 0059 97.5 93 20 122/80 98 Room Air 10/10 2133 105 130/90 10/10 2133 105 130/90 10/10 1619 Room Air 10/10 1530 98.8 96 20 142/80 97 Room Air 10/10 1215 93 124/76 10/10 1215 93 124/76 10/10 1214 93 144/76 Intake & Output 10/11 1600 10/11 0800 10/11 0000 Intake Total 450 400 Output Total 800 850 Balance -350 -450 Intake, IV 250 Intake, Oral 200 400 Number 1 0 Bowel Movements Output, Urine 800 850 Physical Exam General Appearance: Alert, Oriented X3, No Acute Distress HEENT: Atraumatic, Mucous Membr. moist/pink Neck: Supple Cardiovascular: Normal S1, Normal S2, Irregular Lungs: Clear to Auscultation Abdomen: Soft, No Tenderness, Positive Bowel Sounds Extremities: No Clubbing, No Cyanosis, No Edema, Right Lower Extremity With Dressing In Place Current Medications: Current Medications Sig/Dagoberto Start time Last Medication Dose Route Stop Time Status Admin Acetaminophen 650 MG Q6P PRN 10/09 1300 AC PO Atorvastatin Calcium 20 MG 1700 10/08 1700 AC 10/10 PO 1705 Furosemide 20 MG Q48 10/09 1000 DC 10/09 PO 1043 Hydralazine HCl 25 MG BID 10/080 AC 10/10 PO 2133 Isosorbide 30 MG DAILY 10/09 1000 AC 10/10 Mononitrate PO 1215 Metoprolol Tartrate 50 MG BID 10/080 AC 10/10 PO 2133 Multivitamins 1 TAB DAILY 10/09 1000 AC 04/17 PO 1216 Omeprazole 40 MG DAILY AC 10/09 0700 AC 10/11 PO 0635 Oxycodone HCl 5 MG Q8P PRN 10/08 1515 AC PO Oxycodone/ 1 TAB Q8P PRN 10/08 1515 AC Acetaminophen PO Prednisone 60 MG DAILY 10/09 1000 AC 10/10 PO 1215 Senna/Docusate Sodium 2 TAB QPM 10/08 2200 AC 10/10 PO 2131 Sodium Chloride 1,000 ML Q13H 10/11 0630 DC 10/11 IV 0637 Sodium Chloride 1,000 ML Q13H 10/09 1300 DC 10/10 IV 1705 Last 24 Hrs of Lab/Hemal Results Last 24 Hrs of Labs/Mics: Laboratory Tests 10/11/16 0605: Anion Gap 7, Estimated GFR 27 L, BUN/Creatinine Ratio 29.2 H, PT 30.9 H, INR 2.97 H, CBC w Diff Pending, WBC Pending, RBC Pending, Hgb Pending, Hct Pending, MCV Pending, MCH Pending, RDW Pending, Plt Count Pending, MPV Pending, Gran % Pending, Lymphocytes % Pending, Monocytes % Pending, Eosinophils % Pending, Basophils % Pending, Absolute Granulocytes Pending, Absolute Lymphocytes Pending , Absolute Monocytes Pending, Absolute Eosinophils Pending, Absolute Basophils Pending, PUBS MCHC Pending UCx (10/08/2016): >100,000 colonies/ml of Escherichia coli Assessment/Plan Assessment: 71 y/o M with PMHx of atrial fibrillation on warfarin, ischemic cardiomyopathy and prolonged admission for renal failure suspected to be secondary to glomerulonephritis of unclear etiology who presents with intermittent episodes of hemoptysis or epistaxis. #Hemoptysis/epistaxis/hematuria: With anemia and thrombocytopenia. Likely secondary to coagulopathy in the presence of systemic vasculitis. H/H stable. INR has decreased to 2.97 today. * No need for bronchoscopy for pulmonology as hemoptysis has resolved. * Hematology following. Appreciate their recs. * Continue to monitor H/H. * Continue to hold aspirin. * Guaiac all stools. * Resume warfarin with close monitoring of INR. * Refer to ENT as outpatient. #Persistent atrial fibrillation: S/p pacemaker placement. * Cardiology following. Appreciate their recs. * Continue metoprolol 50 mg PO BID. * Continue warfarin given elevated [id number] score of 4. 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 Kidney biopsy would be too risky in the setting of bleeding. Previous extensive serologic evaluation including MARTIN, ANCA, cryoglobulins, SPEP, HbsAg and complement levels have been unrevealing. MARTIN negative this time. Creatinine improving, 2.4 today. * Continue high-dose steroid therapy with prednisone 60 mg PO daily. * IV fluids discontinued. * ANCA, complement C3 and C4 and anti-GBM pending. * Avoid NSAIDs. #Leg/buttock wounds: Dry, scabbed wound on the inner part of right [place] measuring 1.5 x 2.5 cm. Dot-sized dry, scabbed area on right inner ankle without notable, edema, erythema or drainage. Dry round area on dorsum of left food, without edema or drainage. Skin breakdown on left buttock, dime-sized with surrounding erythema but no drainage. Skin breakdown on right buttock, pea-sized with surrounding erythema but no drainage. * polymer specialist following. * Apply barrier cream to wounds. * Apply fluff and vaseline gazue to right foot. #Asymptomatic bacteriuria: UCx growing >100,000 colonies/ml of Escherichia coli. Most likely asymptomatic bacteriuria in the absence of fever, leukocytosis and dysuria. * NTD. Diet: Regular DVT PPx: ALPs CODE: DNR/DNI Problem List: 1. Guaiac positive stools 2. Persistent atrial fibrillation 3. Chronic renal failure 4. Hematuria 5. Anemia 6. Hemoptysis 7. Thrombocytopenia 8. Glomerulonephritis 9. Asymptomatic bacteriuria 10. Wound of right lower extremity 11. Wound of left lower extremity 12. Wound, open, buttock Pain Ratin Pain Location: N/A Pain Goal: Remain pain free Pain Plan: Tylenol 650 mg PO Q6H Roxicodone 5 mg PO Q8H PRN for moderate pain (scale 4-6) Percocet 1 tab PO Q8H PRN for severe pain (scale 7-10) Tomorrow's Labs & Rationales: CBC to monitor H/H in the setting of anemia BMP to monitor lytes and kidney function in the setting of CKD INR given supratherapeutic INR Discharge Plan Discharge Disposition: STR/NH Anticipated Discharge (Day): tomorrow
--- NOTE | 2016-10-11 07:43 | PN- Pulmonary ---
Subjective HPI/Critical Care Issues: Patient feels well without complaints and denies shortness of breath he denies hemoptysis he does have low level epistaxis Objective Current Medications: Current Medications Sig/Dagoberto Start time Last Medication Dose Route Stop Time Status Admin Acetaminophen 650 MG Q6P PRN 10/09 1300 AC PO Atorvastatin Calcium 20 MG 1700 10/08 1700 AC 10/10 PO 1705 Furosemide 20 MG Q48 10/09 1000 DC 10/09 PO 1043 Hydralazine HCl 25 MG BID 10/08 2200 AC 10/10 PO 2133 Isosorbide 30 MG DAILY 10/09 1000 AC 10/10 Mononitrate PO 1215 Metoprolol Tartrate 50 MG BID 10/08 2200 AC 10/10 PO 2133 Multivitamins 1 TAB DAILY 10/09 1000 AC 10/10 PO 1216 Omeprazole 40 MG DAILY AC 10/09 0700 AC 10/11 PO 0635 Oxycodone HCl 5 MG Q8P PRN 10/08 1515 AC PO Oxycodone/ 1 TAB Q8P PRN 10/08 1515 AC Acetaminophen PO Prednisone 60 MG DAILY 10/09 1000 AC 10/10 PO 1215 Senna/Docusate Sodium 2 TAB QPM 10/08 2200 AC 10/10 PO 2131 Sodium Chloride 1,000 ML Q13H 10/11 0630 AC 10/11 IV 0637 Sodium Chloride 1,000 ML Q13H 10/09 1300 DC 10/10 IV 1705 Vital Signs & I&O Last 24 Hrs of Vitals and I&O: Vital Signs Date Time Temp Pulse Resp B/P Pulse O2 O2 Flow FiO2 Ox Delivery Rate 10/11 0059 97.5 93 20 122/80 98 Room Air 10/10 2132 105 130/90 10/10 2132 105 130/90 10/10 1619 Room Air 10/10 1530 98.8 96 20 142/80 97 Room Air 10/10 1215 93 124/76 10/10 1215 93 124/76 10/10 1214 93 144/76 10/10 0838 97.7 85 20 140/86 98 Room Air Intake & Output 10/11 0800 10/11 0000 10/10 1600 Intake Total 198 345 1173 Output Total 800 850 500 Balance -350 -450 700 Intake, IV 250 600 Intake, Oral 200 400 600 Number 1 0 2 Bowel Movements Output, Urine 800 850 500 Room oximetry is 98% exam of his chest shows rare crackles there are no wheezes cardiac exam shows regular S1 and S2 right lower extremity venous stasis ulcer present on admission continues to heal with bedrest Impression/Plan Impression/Plan Impression/Plan: 71-year-old gentleman with history of vasculitis and renal failure admitted with anemia reported hemoptysis in the setting of anticoagulation. I do not believe his hemoptysis is the cause of his anemia and likely related to coagulopathy and vasculitis or epistaxis Recommendations: Patient's hemoptysis has resolved no further pulmonary intervention appears necessary there is no role for bronchoscopy at this point. Further management of his vasculitis by the primary care team and renal service. Please call for further pulmonary issues
[2016-10-11 07:50] LABS: ABSOLUTE BASOPHIL COUNT 0 /CUMM (0.0-0.2); ABSOLUTE EOSINOPHIL COUNT 0 /CUMM (0.0-0.7); ABSOLUTE GRANULOCYTE CT 18.4 /CUMM (1.4-6.5); ABSOLUTE LYMPH COUNT 0.5 /CUMM (1.2-3.4); ABSOLUTE MONOCYTE COUNT 0.1 /CUMM (0.10-0.60); BASOPHIL % 0 % (0.0-2.0); EOSINOPHIL % 0 % (0-5); HEMATOCRIT 26.1 % (42-52); MEAN CORPUSCULAR HGB 28.7 PG (27.0-31.0); MEAN CORPUSCULAR HGB CONC 33.3 G/DL (33.0-37.0); MEAN CORPUSCULAR VOLUME 86.1 FL (80.0-94.0); MEAN PLATELET VOLUME 8.2 FL (7.4-10.4); RBC DISTRIBUTION WIDTH 16.3 % (11.5-14.5); RED BLOOD CELL CT 3.03 /CUMM (4.70-6.10)
[2016-10-11 08:14] VITALS: BP 149/85
[2016-10-11 08:30] LABS: PT 30.9 SEC (9.4-12.5)
--- NOTE | 2016-10-11 08:53 | PN- Nephrology ---
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 Creatinine coming down and clearly not volulme depleted at this time. Suggestion: I have stopped the IV fluids but hold on Lasix. Continue on prednsone 60 mg a day. Subjective Subjective: Feels well today wilth no new complaints. Objective Vital Signs and I&Os Vital Signs Date Time Temp Pulse Resp B/P Pulse O2 O2 Flow FiO2 Ox Delivery Rate 10/11 0814 97.4 105 17 149/85 98 Room Air 10/11 0059 97.5 93 20 122/80 98 Room Air 10/10 2133 105 130/90 10/10 2133 105 130/90 10/10 1619 Room Air 10/10 1530 98.8 96 20 142/80 97 Room Air 10/10 1215 93 124/76 10/10 1215 93 124/76 10/10 1214 93 144/76 Intake & Output 10/11 1600 10/11 0400 10/10 1600 10/10 0400 10/09 1600 10/09 0400 Intake Total 279 449 6766 345 415 200 Output Total 800 785 637 3912 1375 1650 Balance -350 -450 1375 -1505 -960 -1450 Intake, IV 250 1125 225 75 Intake, Oral 706 107 2510 120 340 200 Number 1 0 3 2 Bowel Movements Output, Urine 800 010 634 4573 1375 1650 Patient 220 lb Weight Physical Exam: NAD. VS as above. Lungs: clear CV: no rub Abd: non-tender Exts: 1-2+ hip edema Neuro: A&O Current Medications: Current Medications Sig/Dagoberto Start time Last Medication Dose Route Stop Time Status Admin Acetaminophen 650 MG Q6P PRN 10/09 1300 AC PO Atorvastatin Calcium 20 MG 1700 10/08 1700 AC 10/10 PO 1705 Furosemide 20 MG Q48 10/09 1000 DC 10/09 PO 1043 Hydralazine HCl 25 MG BID 10/08 2200 AC 10/10 PO 2133 Isosorbide 30 MG DAILY 10/09 1000 AC 10/10 Mononitrate PO 1215 Metoprolol Tartrate 50 MG BID 10/08 2200 AC 10/10 PO 2133 Multivitamins 1 TAB DAILY 10/09 1000 AC 10/10 PO 1216 Omeprazole 40 MG DAILY AC 10/09 0700 AC 10/11 PO 0635 Oxycodone HCl 5 MG Q8P PRN 10/08 1515 AC PO Oxycodone/ 1 TAB Q8P PRN 10/08 1515 AC Acetaminophen PO Prednisone 60 MG DAILY 10/09 1000 AC 10/10 PO 1215 Senna/Docusate Sodium 2 TAB QPM 10/08 2200 AC 10/10 PO 2131 Sodium Chloride 1,000 ML Q13H 10/11 0630 DC 10/11 IV 0637 Sodium Chloride 1,000 ML Q13H 10/09 1300 DC 10/10 IV 1705 Results Pertinent Lab Results: Laboratory Tests 10/11 10/10 10/10 0605 0613 0600 Chemistry Sodium (137 - 145 mmol/L) 138 139 Potassium (3.5 - 5.1 mmol/L) 4.7 4.1 Chloride (98 - 107 mmol/L) 110 H 108 H Carbon Dioxide (22 - 30 mmol/L) 21 L 20 L Anion Gap (5 - 16) 7 11 BUN (9 - 20 mg/dL) 70 H 83 H Creatinine (0.7 - 1.2 mg/dL) 2.4 H 2.8 H Estimated GFR (>60 ml/min) 27 L 22 L BUN/Creatinine Ratio (7 - 25 %) 29.2 H 29.6 H Coagulation PT (9.4 - 12.5 SEC) 30.9 H 34.8 H INR (0.90 - 1.17) 2.97 H 3.35 H Hematology CBC w Diff Pending MAN DIFF ORDERED WBC (4.8 - 10.8 /CUMM) Pending 18.8 H RBC (4.70 - 6.10 /CUMM) Pending 3.11 L Hgb (14.0 - 18.0 G/DL) Pending 9.1 L Hct (42 - 52 %) Pending 26.4 L MCV (80.0 - 94.0 FL) Pending 84.8 MCH (27.0 - 31.0 PG) Pending 29.1 RDW (11.5 - 14.5 %) Pending 15.8 H Plt Count (130 - 400 /CUMM) Pending 78 L MPV (7.4 - 10.4 FL) Pending 8.2 Gran % (42.2 - 75.2 %) Pending 91.4 H Lymphocytes % (20.5 - 51.1 %) Pending 3.7 L Monocytes % (1.7 - 9.3 %) Pending 4.9 Eosinophils % (0 - 5 %) Pending 0 Basophils % (0.0 - 2.0 %) Pending 0 L Absolute Granulocytes (1.4 - 6.5 /CUMM) Pending 17.2 H Absolute Lymphocytes (1.2 - 3.4 /CUMM) Pending 0.7 L Absolute Monocytes (0.10 - 0.60 /CUMM) Pending 0.9 H Absolute Eosinophils (0.0 - 0.7 /CUMM) Pending 0 Absolute Basophils (0.0 - 0.2 /CUMM) Pending 0 Platelet Estimate (ADEQUATE) DECREASED Polychromasia 1+ Hypochromic-Microcytic 1+ Poikilocytosis 1+ Anisocytosis 1+ Ovalocytes 1+ PUBS MCHC (33.0 - 37.0 G/DL) Pending 34.3 Immunology ANCA Pending Complement C3 Pending Complement C4 Pending Miscellaneous Ref Lab Test Result Pending 10/09 0635 Chemistry Sodium (137 - 145 mmol/L) 141 Potassium (3.5 - 5.1 mmol/L) 4.3 Chloride (98 - 107 mmol/L) 109 H Carbon Dioxide (22 - 30 mmol/L) 21 L Anion Gap (5 - 16) 10 BUN (9 - 20 mg/dL) 89 H Creatinine (0.7 - 1.2 mg/dL) 3.0 H Estimated GFR (>60 ml/min) 21 L BUN/Creatinine Ratio (7 - 25 %) 29.7 H Coagulation PT (9.4 - 12.5 SEC) 33.2 H INR (0.90 - 1.17) 3.20 H Hematology CBC w Diff MAN DIFF ORDERED WBC (4.8 - 10.8 /CUMM) 13.8 H RBC (4.70 - 6.10 /CUMM) 3.23 L Hgb (14.0 - 18.0 G/DL) 9.4 L Hct (42 - 52 %) 27.6 L MCV (80.0 - 94.0 FL) 85.5 MCH (27.0 - 31.0 PG) 29.0 RDW (11.5 - 14.5 %) 15.5 H Plt Count (130 - 400 /CUMM) 71 L MPV (7.4 - 10.4 FL) 8.2 Gran % (42.2 - 75.2 %) 88.9 H Lymphocytes % (20.5 - 51.1 %) 5.4 L Monocytes % (1.7 - 9.3 %) 5.7 Eosinophils % (0 - 5 %) 0 Basophils % (0.0 - 2.0 %) 0 L Absolute Granulocytes (1.4 - 6.5 /CUMM) 12.3 H Absolute Lymphocytes (1.2 - 3.4 /CUMM) 0.8 L Absolute Monocytes (0.10 - 0.60 /CUMM) 0.8 H Absolute Eosinophils (0.0 - 0.7 /CUMM) 0 Absolute Basophils (0.0 - 0.2 /CUMM) 0 Platelet Estimate (ADEQUATE) DECREASED Polychromasia 1+ Hypochromic-Microcytic 1+ Poikilocytosis 2+ Anisocytosis 1+ PUBS MCHC (33.0 - 37.0 G/DL) 34.0 Immunology MARTIN Titer ND Anti-Nuclear Antibody (NEG,1:40) NEG 1:40 IFA ASSAY 10/08 10/08 1140 1100 Chemistry Sodium (137 - 145 mmol/L) 136 L Potassium (3.5 - 5.1 mmol/L) 5.0 Chloride (98 - 107 mmol/L) 107 Carbon Dioxide (22 - 30 mmol/L) 21 L Anion Gap (5 - 16) 9 BUN (9 - 20 mg/dL) 93 H Creatinine (0.7 - 1.2 mg/dL) 3.0 H Estimated GFR (>60 ml/min) 21 L BUN/Creatinine Ratio (7 - 25 %) 31.0 H Glucose (65 - 99 mg/dL) 167 H Calcium (8.4 - 10.2 mg/dL) 8.5 Total Bilirubin (0.2 - 1.3 mg/dL) 0.7 AST (17 - 59 U/L) 16 L ALT (21 - 72 U/L) 37 Alkaline Phosphatase (< 127 U/L) 101 Troponin I (<0.11 ng/ml) 0.07 Total Protein (6.3 - 8.2 g/dL) 4.7 L Albumin (3.5 - 5.0 g/dL) 2.0 L Globulin (1.9 - 4.2 gm/dL) 2.7 Albumin/Globulin Ratio (1.1 - 2.2 %) 0.7 L Coagulation PT (9.4 - 12.5 SEC) 31.9 H INR (0.90 - 1.17) 3.07 H APTT (25 - 37 SEC) 31 Hematology CBC w Diff MAN DIFF ORDERED WBC (4.8 - 10.8 /CUMM) 15.6 H RBC (4.70 - 6.10 /CUMM) 2.92 L Hgb (14.0 - 18.0 G/DL) 8.2 L Hct (42 - 52 %) 24.8 L MCV (80.0 - 94.0 FL) 84.8 MCH (27.0 - 31.0 PG) 28.1 RDW (11.5 - 14.5 %) 15.7 H Plt Count (130 - 400 /CUMM) 81 L MPV (7.4 - 10.4 FL) 8.4 Gran % (42.2 - 75.2 %) 90.0 H Lymphocytes % (20.5 - 51.1 %) 4.3 L Monocytes % (1.7 - 9.3 %) 5.0 Eosinophils % (0 - 5 %) 0 Basophils % (0.0 - 2.0 %) 0.7 Absolute Granulocytes (1.4 - 6.5 /CUMM) 14.0 H Absolute Lymphocytes (1.2 - 3.4 /CUMM) 0.7 L Absolute Monocytes (0.10 - 0.60 /CUMM) 0.8 H Absolute Eosinophils (0.0 - 0.7 /CUMM) 0 Absolute Basophils (0.0 - 0.2 /CUMM) 0.1 Platelet Estimate (ADEQUATE) DECREASED Hypochromic-Microcytic 2+ Poikilocytosis 2+ Anisocytosis 1+ Ovalocytes 1+ PUBS MCHC (33.0 - 37.0 G/DL) 33.1 Urines Urine Color (YEL,AMB,STR) PINK H Urine Clarity (CLEAR) CLDY H Urine pH (5.0 - 8.0) 6.0 Ur Specific Greene (1.001 - 1.035) 1.010 Urine Protein (NEG,<30 MG/DL) 30 H Urine Ketones (NEG) NEG Urine Nitrite (NEG) NEG Urine Bilirubin (NEG) NEG Urine Urobilinogen (0.1 - 1.0 EU/dl) 0.2 Ur Leukocyte Esterase (NEG) LARGE H Ur Microscopic SEDIMENT EXAMINED Urine RBC (0 - 5 /HPF) 10-15 H Urine WBC (0 - 2 /HPF) 25-50 H Ur Epithelial Cells (NONE,FEW) RARE Urine Bacteria (NEG/NONE) PACKD H Urine Hemoglobin (NEG) LARGE H Urine Glucose (N MG/DL) NEG
[2016-10-11 09:59] LABS: GRANULOCYTE % 97.1 % (42.2-75.2); PLATELET COUNT 77 /CUMM (130-400)
--- NOTE | 2016-10-11 10:01 | PN- Att Addend ---
Attending Addendum Attending Brief Note Patient has had no recurrent episodes of hemoptysis or epistaxis General Appearance: Alert, No Acute Distress Skin: Grossly normal HEENT: PEERLA Neck: Supple, No JVD Cardiovascular: Regular Rate, Normal S1, Normal S2, No Murmurs Lungs: Clear to Auscultation, Normal Air Movement Abdomen: Normal Bowel Sounds, Soft, No Tenderness Neurological: Normal Speech, Strength at 5/5 X4 Ext, Cranial Nerves 3-12 NL, Reflexes 2+ Extremities: No Clubbing, No Cyanosis, No Edema Vascular: Normal Pulses Assessment Suspect blood in the sputum was secondary to epistaxis since patient is having significant epistaxis at the rehabilitation and he has for many times brought up extremely large sizes of clots from his nose. Since hemoptysis and epistaxis has resolved. We will resume Coumadin when INR is therapeutic and observe. He will need outpatient ENT evaluation. In the meantime kidney functions are mildly elevated and renal biopsy if pursued can be done as outpatient. Leukocytosis the setting of steroids. Escherichia coli in the urine likely colonization. Plan Follow off antibiotics Reason Coumadin Follow nephro recommendations ENT evaluation if recurrent bleed Continue other home meds and hold Lasix Current Medications Sig/Dagoberto Start time Last Medication Dose Route Stop Time Status Admin Acetaminophen 650 MG Q6P PRN 10/09 1300 AC PO Atorvastatin Calcium 20 MG 1700 10/08 1700 AC 10/10 PO 1705 Hydralazine HCl 25 MG BID 10/08 2200 AC 10/10 PO 2133 Isosorbide 30 MG DAILY 10/09 1000 AC 10/10 Mononitrate PO 1215 Metoprolol Tartrate 50 MG BID 10/08 2200 AC 10/10 PO 2133 Multivitamins 1 TAB DAILY 10/09 1000 AC 10/10 PO 1216 Omeprazole 40 MG DAILY AC 10/09 0700 AC 10/11 PO 0635 Oxycodone HCl 5 MG Q8P PRN 10/08 1515 AC PO Oxycodone/ 1 TAB Q8P PRN 10/08 1515 AC Acetaminophen PO Prednisone 60 MG DAILY 10/09 1000 AC 10/10 PO 1215 Senna/Docusate Sodium 2 TAB QPM 10/08 2200 AC 10/10 PO 2131 Sodium Chloride 1,000 ML Q13H 10/11 0630 DC 10/11 IV 0637 Sodium Chloride 1,000 ML Q13H 10/09 1300 DC 10/10 IV 1705 Laboratory Tests 10/11 0605 Chemistry Sodium (137 - 145 mmol/L) 138 Potassium (3.5 - 5.1 mmol/L) 4.7 Chloride (98 - 107 mmol/L) 110 H Carbon Dioxide (22 - 30 mmol/L) 21 L Anion Gap (5 - 16) 7 BUN (9 - 20 mg/dL) 70 H Creatinine (0.7 - 1.2 mg/dL) 2.4 H Estimated GFR (>60 ml/min) 27 L BUN/Creatinine Ratio (7 - 25 %) 29.2 H Coagulation PT (9.4 - 12.5 SEC) 30.9 H INR (0.90 - 1.17) 2.97 H Hematology CBC w Diff NO MAN DIFF REQ WBC (4.8 - 10.8 /CUMM) 19.0 H RBC (4.70 - 6.10 /CUMM) 3.03 L Hgb (14.0 - 18.0 G/DL) 8.7 L Hct (42 - 52 %) 26.1 L MCV (80.0 - 94.0 FL) 86.1 MCH (27.0 - 31.0 PG) 28.7 RDW (11.5 - 14.5 %) 16.3 H Plt Count (130 - 400 /CUMM) 77 L MPV (7.4 - 10.4 FL) 8.2 Gran % (42.2 - 75.2 %) 97.1 H Lymphocytes % (20.5 - 51.1 %) 2.6 L Monocytes % (1.7 - 9.3 %) 0.3 L Eosinophils % (0 - 5 %) 0 Basophils % (0.0 - 2.0 %) 0 L Absolute Granulocytes (1.4 - 6.5 /CUMM) 18.4 H Absolute Lymphocytes (1.2 - 3.4 /CUMM) 0.5 L Absolute Monocytes (0.10 - 0.60 /CUMM) 0.1 L Absolute Eosinophils (0.0 - 0.7 /CUMM) 0 Absolute Basophils (0.0 - 0.2 /CUMM) 0 PUBS MCHC (33.0 - 37.0 G/DL) 33.3 Vital Signs Date Time Temp Pulse Resp B/P Pulse O2 O2 Flow FiO2 Ox Delivery Rate 10/11 0814 97.4 105 17 149/85 98 Room Air 10/11 0059 97.5 93 20 122/80 98 Room Air 10/10 2133 105 130/90 10/10 2133 105 130/90 10/10 1619 Room Air 10/10 1530 98.8 96 20 142/80 97 Room Air 10/10 1215 93 124/76 10/10 1215 93 124/76 10/10 1214 93 144/76
--- NOTE | 2016-10-11 10:35 | PN- Cardiology ---
Subjective Subjective: Patient states that he feels well overall. He denies chest pain or shortness of breath. Review of Systems: Eyes no blurred or double vision Ears no deafness or ringing Nose and throat no recurrent sinusitis Lungs per history of present illness Heart per history of present illness Abdomen no nausea vomiting Musculoskeletal occasional muscle and joint pains Psych no anxiety or depression Neuro without recurrent headache or seizures Endocrine no heat or cold intolerance Objective Vital Signs and I&Os Vital Signs Date Time Temp Pulse Resp B/P Pulse O2 O2 Flow FiO2 Ox Delivery Rate 10/11 1009 90 150/84 10/11 1009 90 150/84 10/11 1009 94.0 150/84 10/11 0814 97.4 105 17 149/85 98 Room Air 10/11 0059 97.5 93 20 122/80 98 Room Air 10/10 2133 105 130/90 10/10 2133 105 130/90 10/10 1619 Room Air 10/10 1530 98.8 96 20 142/80 97 Room Air 10/10 1215 93 124/76 10/10 1215 93 124/76 10/10 1214 93 144/76 Intake & Output 10/11 1600 10/11 0800 10/11 0000 10/10 1600 10/10 0800 10/10 0000 Intake Total 269 112 8822 1125 345 Output Total 800 850 639 969 1895 Balance -350 -450 700 675 -1505 Intake, IV 250 600 525 225 Intake, Oral 200 400 600 600 120 Number 1 0 2 1 Bowel Movements Output, Urine 800 850 949 840 5084 Physical Exam: Patient is a well-developed well-nourished male appearing in no acute distress HEENT is unremarkable Neck is supple there is no JVD Lungs are clear Heart irregular rhythm S1 and S2 are normal no murmurs gallops or rubs Abdomen bowel sounds positive Extremities without edema Current Medications: Current Medications Sig/Dagoberto Start time Last Medication Dose Route Stop Time Status Admin Acetaminophen 650 MG Q6P PRN 10/09 1300 AC PO Atorvastatin Calcium 20 MG 1700 10/08 1700 AC 10/10 PO 1705 Hydralazine HCl 25 MG BID 10/08 2200 AC 10/11 PO 1009 Isosorbide 30 MG DAILY 10/09 1000 AC 10/11 Mononitrate PO 1009 Metoprolol Tartrate 50 MG BID 10/08 220 AC 10/11 PO 1009 Multivitamins 1 TAB DAILY 10/09 1000 AC 10/11 PO 1009 Omeprazole 40 MG DAILY AC 10/09 0700 AC 10/11 PO 0635 Oxycodone HCl 5 MG Q8P PRN 10/08 1515 AC PO Oxycodone/ 1 TAB Q8P PRN 10/08 1515 AC Acetaminophen PO Prednisone 60 MG DAILY 10/09 1000 AC 10/11 PO 1009 Senna/Docusate Sodium 2 TAB QPM 10/08 2200 AC 10/10 PO 2131 Sodium Chloride 1,000 ML Q13H 10/11 0630 DC 10/11 IV 0637 Sodium Chloride 1,000 ML Q13H 10/09 1300 DC 10/10 IV 1705 Results Last 48 Hrs of Labs/Mics: Laboratory Tests 10/11/16 0605: Anion Gap 7, Estimated GFR 27 L, BUN/Creatinine Ratio 29.2 H, PT 30.9 H, INR 2.97 H, CBC w Diff NO MAN DIFF REQ, RBC 3.03 L, MCV 86.1, MCH 28.7, RDW 16.3 H, MPV 8.2, Gran % 97.1 H, Lymphocytes % 2.6 L, Monocytes % 0.3 L, Eosinophils % 0, Basophils % 0 L, Absolute Granulocytes 18.4 H, Absolute Lymphocytes 0.5 L, Absolute Monocytes 0.1 L, Absolute Eosinophils 0, Absolute Basophils 0, PUBS MCHC 33.3 10/10/16 0613: Anion Gap 11, Estimated GFR 22 L, BUN/Creatinine Ratio 29.6 H, PT 34.8 H, INR 3.35 H, CBC w Diff MAN DIFF ORDERED, RBC 3.11 L, MCV 84.8, MCH 29.1, RDW 15.8 H, MPV 8.2, Gran % 91.4 H, Lymphocytes % 3.7 L, Monocytes % 4.9, Eosinophils % 0, Basophils % 0 L, Absolute Granulocytes 17.2 H, Absolute Lymphocytes 0.7 L, Absolute Monocytes 0.9 H, Absolute Eosinophils 0, Absolute Basophils 0, Platelet Estimate DECREASED, Polychromasia 1+, Hypochromic-Microcytic 1+, Poikilocytosis 1+, Anisocytosis 1+, Ovalocytes 1+, PUBS MCHC 34.3 10/10/16 0600: ANCA Pending, Complement C3 Pending, Complement C4 Pending, Ref Lab Test Result Pending Telemetry personally reviewed ventricular paced rhythm Assessment/Plan Assessment/Plan 1. 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 Persistent atrial fibrillation on anticoagulation with Coumadin 3. History of coronary artery disease/prior myocardial infarction with mild to moderate left ventricular dysfunction by previous noninvasive imaging, now with severe LV dysfunction 4. Epistaxis/hemoptysis/hematuria 5. Anemia 6. Chronic left bundle branch block 7. Hx HTN 8. Venous insufficiency 9. Thrombocytopenia 10. Prolonged pauses, s/p MRI compatible single lead permanent pacemaker 09/09/16 Recommendations 1. Lasix is still on hold per renal 2. Continue to monitor renal function 3. Given his elevated CHADS-Vasc score would continue coumadin if no contraindication monitoring INR closely Continue telemetry? Yes
--- NOTE | 2016-10-11 10:58 | Discharge Summary ---
Visit Information Visit Dates Admission Date: 10/08/16 Discharge Date: 10/12/2016 Hospital Course Course Attending Physician: ADAN FENTON MD Primary Care Physician: ADAN FENTON MD Hospital Course: 71-year-old male with past medical history of atrial fibrillation on anticoagulation with Coumadin, prior myocardial infarct, chronic coronary artery disease with prior PCI, chronic left bundle-branch block, status post permanent pacemaker, EF 25%, hypertension, varicose veins, chronic anemia, thrombocytopenia, acute renal failure, , possible cutaneous vascuilits, and venous insufficiency came to emergency department with chief complaint of scant hemoptysis/epistaxis for the last 6 weeks. His INR was checked in the rehabilitation facility and it was 2.9. He denied any fever or productive sputum production. Patient denied any chest pain, shortness of breath, shortness of breath on exertion, blood in stools, nausea, vomiting, gross hematemesis. Vital Signs Date Time Temp Pulse Resp B/P Pulse O2 O2 Flow FiO2 Ox Delivery Rate 10/08 1437 96.9 93 22 138/79 98 Room Air 10/08 1350 96.0 105 16 133/81 99 Room Air 10/08 1124 98 Room Air 10/08 1123 98.0 96 16 133/99 98 Room Air Physical Exam General Appearance Alert, Oriented X3, Cooperative, No Acute Distress Skin SKIN BREAKDOWN LOWER EXTREMITIES COVERED WITH DRESSING, VARICOSE VEINS HEENT Atraumatic, PERRLA Neck Supple Cardiovascular Normal S1, Normal S2, IRREGULAR Lungs Clear to Auscultation, DECREASED AIR ENTRY AT THE LUNG BASES Abdomen Normal Bowel Sounds, Soft, No Tenderness Neurological Normal Speech, Normal Tone, Sensation Intact Extremities BILATERAL LOWER EXTREMITY 3+ EDEMA Vascular Normal Pulses Rectal Guiac Negative Last 24 Hrs of Labs/Hemal: Laboratory Tests 10/08/16 1140: Anion Gap 9, Estimated GFR 21 L, BUN/Creatinine Ratio 31.0 H, Glucose 167 H, Calcium 8.5, Total Bilirubin 0.7, AST 16 L, ALT 37, Alkaline Phosphatase 101, Troponin I 0.07, Total Protein 4.7 L, Albumin 2.0 L, Globulin 2.7, Albumin/ Globulin Ratio 0.7 L, PT 31.9 H, INR 3.07 H, APTT 31, CBC w Diff MAN DIFF ORDERED, RBC 2.92 L, MCV 84.8, MCH 28.1, RDW 15.7 H, MPV 8.4, Gran % 90.0 H, Lymphocytes % 4.3 L, Monocytes % 5.0, Eosinophils % 0, Basophils % 0.7, Absolute Granulocytes 14.0 H, Absolute Lymphocytes 0.7 L, Absolute Monocytes 0.8 H, Absolute Eosinophils 0, Absolute Basophils 0.1, Platelet Estimate DECREASED, Hypochromic-Microcytic 2+, Poikilocytosis 2+, Anisocytosis 1+, Ovalocytes 1+, PUBS MCHC 33.1 10/08/16 1100: Urine Color Pending, Urine Clarity Pending, Urine pH Pending, Ur Specific Gratz Pending, Urine Protein Pending, Urine Ketones Pending, Urine Nitrite Pending, Urine Bilirubin Pending, Urine Urobilinogen Pending, Ur Leukocyte Esterase Pending, Ur Microscopic Pending, Urine Hemoglobin Pending, Urine Glucose Pending Microbiology Diagnostic Data CXR Results Elevated right hemidiaphragm. No acute process seen in chest. No change from exam. Patient was admitted to telemetry floor and treated for these medical conditions : Hemoptysis/Epistaxsis/Anemia and Thrombocytopenia He is stopped warfarin and aspirin. Patient did not have any major episode of epistaxis and hemoptysis during the hospitalization. Hematology, pulmonology, nephrology were on board. Hematuria was resolved. he received 1 unit of blood and after that H&H was stable during the hospitalization around 9. Platelets for around 80,000. we restarted warfarin in low dose 1 mg. INR was between 2 and 3. patient was deemed stable to go back to [facility]. he should follow up with outpatient ENT for his epistaxis. Atrial fibrillation/history of left bundle branch block and coronary artery disease status post PCI status post pacemaker ejection fraction 25% Patient has a high chads risk score of 4 and has had developed complications of anticoagulation in the past. Initially his INR was supratherapeutic during the hospitalization. Cardiology recommended continuing Coumadinm, so we retarted coumadin on lower dose.patient should follow up with cardiology in outpatient setting for another echocardiogram. INR should be checked periodically and warfarin should be dosed accordingly. Chronic renal insufficiency Etiology of chronic renal insufficiency is possibly vasculitis/unknown. Due to major risk of breaking and thrombocytopenia renal biopsy has not been done yet. Her nephrology recheck C3-C4, MARTIN, other rheumatological markers. Patient remained on high-dose prednisone. lasix was stopped initially and restrated back to 40 mg Q48 hours. patient should follow up with Nephrology after discharge for furthur management. EPO injections were suggested by Hem consult which should be discussed in outpatient setting with nephrology. elevated hga1c patient hga1c was 6.8 due to chronic steroid therapy. we put the patient on Januvia 50 mg daily upon dishcharge. #Leg/buttock wounds: Dry, scabbed wound on the inner part of right [place] measuring 1.5 x 2.5 cm. Dot-sized dry, scabbed area on right inner ankle without notable, edema, erythema or drainage. Dry round area on dorsum of left food, without edema or drainage. Skin breakdown on left buttock, dime-sized with surrounding erythema but no drainage. Skin breakdown on right buttock, pea-sized with surrounding erythema but no drainage. instructions :Apply barrier cream to wounds. Apply fluff and vaseline gazue to right foot. Allergies: Coded Allergies: No Known Allergies (09/10/16) Disposition Summary Disposition Principal Diagnosis: hemoptysis epistaxis Additional Diagnosis: A. fib on Coumadin CKD Vasculitis? Discharge Disposition: SNF Discharge Instructions General Discharge Information Code Status: Do Not Resucitate/Intubat Patient's Diet: diabetic Patient's Activity: As tolerated Follow-Up Instructions/Appts: We are giving you a referral for Ear, Nose & Throat specialist Dr. Yue Aldrich. Please follow up with her within two weeks of discharge for nosebleeds. -Please follow-up with your primary care provider within 7 days after discharge. -please follow-up with your air technician 7 days after discharge -Please follow-up with your wig stylist 7 days after discharge -Please follow-up with your medical equipment technician 7 days after discharge -Please follow-up with your asbestos remover 7 days after discharge -We have made changes to your home medications, please read the instructions carefully. -Please come back to the hospital if your symptoms got worse. Medications at Discharge Discharge Medications: Stop taking the following medications: Warfarin Sodium (Warfarin Sodium) 5 MG TABLET ORAL 5 PM Qty = 90 Aspirin (Aspirin*) 81 MG TAB.CHEW ORAL DAILY Furosemide (Lasix) 20 MG TABLET ORAL EVERY 48 HOURS (Every 2 days) Continue taking these medications: Metoprolol Tartrate (Metoprolol Tartrate) 50 MG TABLET 1 Tablet ORAL TWICE DAILY Qty = 180 Comments: NOT GIVEN IN THE HOSPITAL TOPROL XL 75 MG GIVEN 09/15/16 1130 AM Multivit-Min/FA/Lycopen/Lutein (Centrum Silver Men Tablet) 300 MCG-600 MCG-300 MCG TABLET 1 Tablet ORAL DAILY Comments: Last Taken:09/15/16 Time:10 AM Omeprazole (Omeprazole) 20 MG CAPSULE.DR 40 Milligram ORAL DAILY BEFORE BREAKFAST Qty = 30 Comments: Last Taken:09/15/16 Time:7 AM Prednisone (Prednisone) 20 MG TABLET 60 Milligram ORAL DAILY Qty = 30 Comments: Last Taken:09/15/16 Time:10 AM Atorvastatin Calcium (Atorvastatin Calcium) 20 MG TABLET 20 Milligram ORAL 5 PM Days = 30 Comments: Last Taken:09/15/16 Time:5 PM Hydralazine HCl (Hydralazine HCl) 25 MG TABLET 25 Milligram ORAL TWICE DAILY Qty = 30 Comments: Last Taken:09/15/16 Time:1130 AM Isosorbide Mononitrate (Isosorbide Mononitrate ER) 30 MG TAB.ER.24H 30 Milligram ORAL DAILY Qty = 30 Comments: Last Taken:09/15/16 Time:1130 AM Sennosides/Docusate Sodium (Senna S Tablet) 8.6 MG-50 MG TABLET 2 Tablet ORAL Every night Furosemide (Furosemide) 40 MG TABLET 1 Tablet ORAL EVERY 48 HOURS (Every 2 days) Start taking the following new medications: Warfarin Sodium (Coumadin) 1 MG TABLET 1 Tablet ORAL DAILY Qty = 30 No Refills Sitagliptin Phosphate (Januvia) 50 MG TABLET 1 Tablet ORAL DAILY Qty = 30 No Refills Copies To: RENALDO BAKER,ELAINE Duong; CHAPITO BAKER,MATTHEW HAN MD,OSIEL Holt; YI BAKER, SHAYNE Holt Nephrology consultation Pulmonary consultation Hematology consultation Allergies: Coded Allergies: No Known Allergies (09/10/16) Disposition Summary Disposition Principal Diagnosis: hemoptysis epistaxis
--- NOTE | 2016-10-11 14:47 | Patient Discharge Instructions ---
Discharge Instructions General Discharge Information You were seen/treated for: Hemoptysis Epistaxis Special Instructions: We are giving you a referral for Ear, Nose & Throat specialist Dr. Yue Aldrich. Please follow up with her within two weeks of discharge for nosebleeds. -Please follow-up with your primary care provider within 7 days after discharge. -please follow-up with your employee adviser 7 days after discharge -Please follow-up with your jet dyeing machine tender 7 days after discharge -Please follow-up with your board certified music therapist 7 days after discharge -Please follow-up with your master cosmetologist 7 days after discharge -We have made changes to your home medications, please read the instructions carefully. -Please come back to the hospital if your symptoms got worse. Diet Continue normal diet: No Acute Coronary Syndrome Inclusion Criteria At DC or during hospital stay patient has or had the following: ACS DIAGNOSIS No Discharge Core Measures Meds if any: Prescribed or Continued at Discharge Meds if any: NOT Prescribed or Continued at Discharge Congestive Heart Failure Inclusion Criteria At DC or during hospital stay patient has or had the following: CHF DIAGNOSIS No Discharge Core Measures Meds if any: Prescribed or Continued at Discharge Meds if any: NOT Prescribed or Continued at Discharge Cerebrovascular accident Inclusion Criteria At DC or during hospital stay patient has or had the following: CVA/TIA Diagnosis No Discharge Core Measures Meds if any: Prescribed or Continued at Discharge Meds if any: NOT Prescribed or Continued at Discharge Venous thromboembolism Inclusion Criteria VTE Diagnosis No VTE Type NONE VTE Confirmed by (Test) NONE Discharge Core Measures - Per Current guidelines, there needs to be overlap - treatment for the first 5 days of Warfarin therapy. - If discharged on Warfarin prior to 5 days of - overlap therapy, the patient will need to be - assessed for post discharge needs including - *Post discharge parental anticoagulation - *Warfarin and/or parental anticoagulation education - *Follow up date to check INR post discharge At least 5 days overlap therapy as Inpatient No Meds if any: Prescribed or Continued at Discharge Note: Overlap Therapy is Warfarin and Anticoagulant Meds if any: NOT Prescribed or Continued at Discharge
[2016-10-11 16:32] VITALS: BP 124/76
[2016-10-11 23:14] VITALS: BP 112/70
--- NOTE | 2016-10-12 06:49 | PN- Hematology ---
Subjective Subjective: Offers no specific complaints Review of Systems: 12 point review of systems otherwise negative Objective Vital Signs and I&Os Vital Signs Date Time Temp Pulse Resp B/P B/P Pulse O2 O2 Flow FiO2 Mean Ox Delivery Rate 10/12 0000 Room Air 10/11 2314 98.2 73 18 112/70 98 Room Air 10/11 2057 94 136/72 10/11 2056 94 136/72 10/11 1632 98.7 89 16 124/76 99 Room Air 10/11 1600 Room Air 10/11 1009 90 150/84 10/11 1009 90 150/84 10/11 1009 94.0 150/84 10/11 0814 97.4 105 17 149/85 98 Room Air Intake & Output 10/12 0800 10/12 0000 10/11 1600 10/11 0810/11 0000 10/10 1600 Intake Total 560 520 902 636 5657 Output Total 875 400 800 850 500 Balance -315 120 -350 -450 700 Intake, IV 250 600 Intake, Oral 560 520 200 400 600 Number 2 1 0 2 Bowel Movements Output, Urine 875 400 800 850 500 Gen.: in NAD ENT: Sclera anicteric Chest: Normal respiratory effort, clear breath sounds Cor: RRR, no extra sounds Abdomen: Soft, bowel sounds present, no tenderness, no rebound Extremities: Without clubbing, cyanosis, or asymmetric edema Neurology: Alert and oriented 3, no gross deficit Current Medications: Current Medications Sig/Dagoberto Start time Last Medication Dose Route Stop Time Status Admin Acetaminophen 650 MG Q6P PRN 10/09 1300 AC PO Atorvastatin Calcium 20 MG 1700 10/08 1700 AC 10/11 PO 1735 Hydralazine HCl 25 MG BID 10/08 2199 AC 10/11 PO 2055 Insulin Aspart 0 TIDAC 10/11 1700 AC SC Isosorbide 30 MG DAILY 10/09 1000 AC 10/11 Mononitrate PO 1009 Metoprolol Tartrate 50 MG BID 10/08 2200 AC 10/11 PO 2056 Multivitamins 1 TAB DAILY 10/09 1000 AC 10/11 PO 1009 Omeprazole 40 MG DAILY AC 10/09 0700 AC 10/12 PO 0621 Oxycodone HCl 5 MG Q8P PRN 10/08 1515 AC PO Oxycodone/ 1 TAB Q8P PRN 10/08 1515 AC Acetaminophen PO Patient Medication 1 ED .STK-MED ONE 10/11 1402 DC Teaching ED 10/11 1403 Prednisone 60 MG DAILY 10/09 1000 AC 10/11 PO 1009 Senna/Docusate Sodium 2 TAB QPM 10/08 2200 AC 10/10 PO 2131 Sodium Chloride 1,000 ML Q13H 10/11 0630 DC 10/11 IV 0637 Results Last 24 Hours of Lab Results: Please see lab sheet Assessment/Plan Assessment/Recommendations: 1. Anemia/thrombocytopenia-relatively stable. Component of anemia may be due to erythropoietin deficiency Recommend- Consider erythropoietin replacement therapy I will be able to continue this as an outpatient 2. Renal failure-as per nephrology service
--- NOTE | 2016-10-12 07:22 | PN- Housestaff ---
Subjective Follow-up For: Hemoptysis/epistaxis/hematuria/guaiac positive stools Anemia Thrombocytopenia Atrial fibrillation Presumed glomerulonephritis Tele-Events Since Last Visit: Atrial fibrillation HR 64-93 PVCs Subjective: No acute events overnight. Patient seen and examined this morning. Epistaxis has resolved. He has not had any recurrent episodes of hemoptysis. He has no complaints. Review of Systems Constitutional: Reports: see HPI. Objective Last 24 Hrs of Vital Signs/I&O Vital Signs Date Time Temp Pulse Resp B/P B/P Pulse O2 O2 Flow FiO2 Mean Ox Delivery Rate 10/12 1400 96.1 90 18 114/62 10/12 0952 90 114/62 10/12 0800 Room Air 10/12 0755 96.1 86 18 140/82 98 Room Air 10/12 0000 Room Air 10/11 2314 98.2 73 18 112/70 98 Room Air 10/11 2057 94 136/72 10/11 2056 94 136/72 Intake & Output 10/12 1600 10/12 0800 10/12 0000 Intake Total 400 250 560 Output Total 950 875 Balance 400 -700 -315 Intake, Oral 400 250 560 Output, Urine 950 875 Physical Exam General Appearance: Alert, Oriented X3, No Acute Distress HEENT: Atraumatic, Mucous Membr. moist/pink Cardiovascular: Normal S1, Normal S2, Irregular Lungs: Clear to Auscultation Abdomen: Soft, No Tenderness, Positive Bowel Sounds Extremities: No Clubbing, No Cyanosis, 1-2+ Edema on Bilateral Lower Extremities , Dressing In Place On Right Lower Extremity Current Medications: Current Medications Sig/Dagoberto Start time Last Medication Dose Route Stop Time Status Admin Acetaminophen 650 MG Q6P PRN 10/09 1300 DCD PO Atorvastatin Calcium 20 MG 1700 10/08 1700 DCD 10/11 PO 1735 Furosemide 40 MG Q48 10/12 1000 DCD 10/12 PO 1125 Hydralazine HCl 25 MG BID 10/080 DCD 10/12 PO 0952 Insulin Aspart 0 TIDAC 10/11 1700 DCD SC Isosorbide 30 MG DAILY 10/09 1000 DCD 10/12 Mononitrate PO 0952 Metoprolol Tartrate 50 MG BID 10/08 2200 DCD 10/12 PO 0952 Multivitamins 1 TAB DAILY 10/09 1000 DCD 10/12 PO 0954 Omeprazole 40 MG DAILY AC 10/09 0700 DCD 10/12 PO 0621 Oxycodone HCl 5 MG Q8P PRN 10/08 1515 DCD PO Oxycodone/ 1 TAB Q8P PRN 10/08 1515 DCD Acetaminophen PO Prednisone 60 MG DAILY 10/09 1000 DCD 10/12 PO 0952 Senna/Docusate Sodium 2 TAB QPM 10/08 2200 DCD 10/10 PO 2131 Last 24 Hrs of Lab/Hemal Results Last 24 Hrs of Labs/Mics: Laboratory Tests 10/12/16 0605: Anion Gap 8, Estimated GFR 28 L, BUN/Creatinine Ratio 27.8 H, PT 23.7 H, INR 2.28 H, CBC w Diff MAN DIFF ORDERED, RBC 3.15 L, MCV 86.0, MCH 29.3, RDW 16.3 H, MPV 8.1, Gran % 92.0 H, Lymphocytes % 3.4 L, Monocytes % 4.6, Eosinophils % 0, Basophils % 0 L, Absolute Granulocytes 16.1 H, Absolute Lymphocytes 0.6 L, Absolute Monocytes 0.8 H, Absolute Eosinophils 0, Absolute Basophils 0, Platelet Estimate DECREASED, Hypochromic-Microcytic 1+, Poikilocytosis 2+, Anisocytosis 1+, Ovalocytes 1+, PUBS MCHC 34.1, ESR Westergren 45 H Assessment/Plan Assessment: 71 y/o M with PMHx of atrial fibrillation on warfarin, ischemic cardiomyopathy and prolonged admission for renal failure suspected to be secondary to glomerulonephritis of unclear etiology who presents with intermittent episodes of hemoptysis or epistaxis. #Hemoptysis/epistaxis: Resolved. Likely secondary to coagulopathy in the presence of possible systemic vasculitis. Chronic anemia and thrombocytopenia persists but H/H and platelet count stable. INR has further decreased to 2.28 today. * Discharge to SNF today. * Patient instructed to follow-up with pulmonology and hematology as outpatient. * Outpatient ENT referral provided on discharge. * Aspirin discontinued. * Patient instructed to resume warfarin at the lower dose of 1 mg PO daily with close monitoring of INR on discharge. #New-onset diabetes mellitus: Blood sugars were running high and HbA1c was checked which came back at 6.8. Likely secondary to high-dose steroids. * Januvia 50 mg PO daily added to discharge medications. * Patient started on diabetic diet. Dietary recommendations added to W-10. #HFrEF: Slight volume overload with increased lower extremity edema noted today after holding Lasix. * Resume Lasix at 40 mg PO every other day on discharge. #Persistent atrial fibrillation: S/p pacemaker placement. * Follow up with cardiology within one week of discharge. * Continue metoprolol 50 mg PO BID. * Continue warfarin given elevated [id number] score of 4. 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 Kidney biopsy would be too risky in the setting of bleeding. Previous extensive serologic evaluation including MARTIN, ANCA, cryoglobulins, SPEP, HbsAg and complement levels have been unrevealing. MARTIN negative this time. Creatinine improving, 2.3 today. * Patient instructed to follow up with information systems coordinator Dr. Morejon within one week of discharge. * Continue high-dose steroid therapy with prednisone 60 mg PO daily. * ANCA, complement C3 and C4 and anti-GBM pending. #Leg wounds: Dry, scabbed wound on the inner part of right [place] measuring 1.5 x 2.5 cm. Dot-sized dry, scabbed area on right inner ankle without notable, edema, erythema or drainage. Dry round area on dorsum of left food, without edema or drainage. * Apply fluff and vaseline gauze to right foot and xeroform dressing to left foot. Instructions added to W-10 #Pressure ulcers: Skin breakdown on left buttock, dime-sized with surrounding erythema but no drainage. Skin breakdown on right buttock, pea-sized with surrounding erythema but no drainage. Pressure ulcers present on admission. * Apply barrier cream to pressure ulcers. Instructions added to W-10. Diet: Diabetic DVT PPx: ALPs CODE: DNR/DNI Problem List: 1. Wound of left lower extremity 2. Wound of right lower extremity 3. Pressure ulcer of buttock 4. Anemia 5. Thrombocytopenia 6. Hemoptysis 7. Hematuria 8. Guaiac positive stools 9. Chronic renal failure 10. Glomerulonephritis 11. Atrial fibrillation 12. Epistaxis 13. Diabetes mellitus, new onset Pain Ratin Pain Location: N/A Pain Goal: Remain pain free Pain Plan: Percocet 1 tab PO Q8H PRN for severe pain (scale 7-10) Roxicodone 5 mg PO Q8H PRN for moderate pain (scale 4-6) Tomorrow's Labs & Rationales: None Discharge Plan Discharge Disposition: STR/NH Stable for Discharge? Yes Anticipated Discharge (Day): today
[2016-10-12 07:55] VITALS: BP 140/82
[2016-10-12 07:59] LABS: ABSOLUTE BASOPHIL COUNT 0 /CUMM (0.0-0.2); ABSOLUTE EOSINOPHIL COUNT 0 /CUMM (0.0-0.7); ABSOLUTE GRANULOCYTE CT 16.1 /CUMM (1.4-6.5); ABSOLUTE LYMPH COUNT 0.6 /CUMM (1.2-3.4); ABSOLUTE MONOCYTE COUNT 0.8 /CUMM (0.10-0.60); BASOPHIL % 0 % (0.0-2.0); EOSINOPHIL % 0 % (0-5); MEAN CORPUSCULAR HGB 29.3 PG (27.0-31.0); MEAN CORPUSCULAR HGB CONC 34.1 G/DL (33.0-37.0); MEAN PLATELET VOLUME 8.1 FL (7.4-10.4); PLATELET COUNT 86 /CUMM (130-400); RBC DISTRIBUTION WIDTH 16.3 % (11.5-14.5); RED BLOOD CELL CT 3.15 /CUMM (4.70-6.10); WHITE BLOOD CELL COUNT 17.5 /CUMM (4.8-10.8)
[2016-10-12 08:26] LABS: PT 23.7 SEC (9.4-12.5)
--- NOTE | 2016-10-12 09:00 | PN- Nephrology ---
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 Creatinine coming down and clearly not volulme depleted at this time. May have been receiving ibuprofen at [facility]. Suggestion: Continue on prednsone 60 mg a day. Will need f/u with Dr. Smith in office. Somewhat more edema so can resume Lasix 40 mg every other day. Subjective Subjective: Feels well, eating. May go back to [facility] today. Objective Vital Signs and I&Os Vital Signs Date Time Temp Pulse Resp B/P B/P Pulse O2 O2 Flow FiO2 Mean Ox Delivery Rate 10/12 0755 96.1 86 18 140/82 98 Room Air 10/12 0000 Room Air 10/11 2314 98.2 73 18 112/70 98 Room Air 10/11 2056 94 136/72 10/12 2055 94 136/72 10/11 1632 98.7 89 16 124/76 99 Room Air 10/11 1600 Room Air 10/11 1009 90 150/84 10/11 1009 90 150/84 10/11 1009 94.0 150/84 Intake & Output 10/12 1600 10/12 0400 10/11 1600 10/11 0400 10/10 1600 10/10 0400 Intake Total 250 560 539 569 0963 345 Output Total 119 851 9263 951 545 3748 Balance -700 -315 -230 -450 1375 -1505 Intake, IV 250 1125 225 Intake, Oral 250 560 426 384 0742 120 Number 3 0 3 Bowel Movements Output, Urine 783 220 4836 041 912 6611 Physical Exam: NAD. VS as above. Lungs: clear CV: no rub Abd: non-tender Exts: 1-2+ hip edema Neuro: A&O Current Medications: Current Medications Sig/Dagoberto Start time Last Medication Dose Route Stop Time Status Admin Acetaminophen 650 MG Q6P PRN 10/09 1300 AC PO Atorvastatin Calcium 20 MG 1700 10/08 1700 AC 10/11 PO 1734 Hydralazine HCl 25 MG BID 10/08 2199 AC 10/11 PO 2055 Insulin Aspart 0 TIDAC 10/11 1700 AC SC Isosorbide 30 MG DAILY 10/09 1000 AC 10/11 Mononitrate PO 100 Metoprolol Tartrate 50 MG BID 10/08 2199 AC 10/11 PO 2056 Multivitamins 1 TAB DAILY 10/09 1000 AC 10/11 PO 1009 Omeprazole 40 MG DAILY AC 10/09 0700 AC 10/12 PO 0621 Oxycodone HCl 5 MG Q8P PRN 10/08 1515 AC PO Oxycodone/ 1 TAB Q8P PRN 10/08 1515 AC Acetaminophen PO Patient Medication 1 ED .STK-MED ONE 10/11 1402 SC Teaching ED 10/11 1403 Prednisone 60 MG DAILY 10/09 1000 AC 10/11 PO 1009 Senna/Docusate Sodium 2 TAB QPM 10/08 2200 AC 10/10 PO 2131 Results Pertinent Lab Results: Laboratory Tests 10/12 10/11 0605 0605 Chemistry Sodium (137 - 145 mmol/L) 138 138 Potassium (3.5 - 5.1 mmol/L) 4.8 4.7 Chloride (98 - 107 mmol/L) 107 110 H Carbon Dioxide (22 - 30 mmol/L) 23 21 L Anion Gap (5 - 16) 8 7 BUN (9 - 20 mg/dL) 64 H 70 H Creatinine (0.7 - 1.2 mg/dL) 2.3 H 2.4 H Estimated GFR (>60 ml/min) 28 L 27 L BUN/Creatinine Ratio (7 - 25 %) 27.8 H 29.2 H Hemoglobin A1c (4.2 - 5.8 %) 6.8 H Coagulation PT (9.4 - 12.5 SEC) 23.7 H 30.9 H INR (0.90 - 1.17) 2.28 H 2.97 H Hematology CBC w Diff MAN DIFF ORDERED NO MAN DIFF REQ WBC (4.8 - 10.8 /CUMM) Pending 19.0 H RBC (4.70 - 6.10 /CUMM) Pending 3.03 L Hgb (14.0 - 18.0 G/DL) Pending 8.7 L Hct (42 - 52 %) Pending 26.1 L MCV (80.0 - 94.0 FL) Pending 86.1 MCH (27.0 - 31.0 PG) Pending 28.7 RDW (11.5 - 14.5 %) Pending 16.3 H Plt Count (130 - 400 /CUMM) Pending 77 L MPV (7.4 - 10.4 FL) Pending 8.2 Gran % (42.2 - 75.2 %) Pending 97.1 H Lymphocytes % (20.5 - 51.1 %) Pending 2.6 L Monocytes % (1.7 - 9.3 %) Pending 0.3 L Eosinophils % (0 - 5 %) Pending 0 Basophils % (0.0 - 2.0 %) Pending 0 L Absolute Granulocytes (1.4 - 6.5 /CUMM) Pending 18.4 H Segmented Neutrophils (42.2 - 75.2 %) Pending Absolute Lymphocytes (1.2 - 3.4 /CUMM) Pending 0.5 L Absolute Monocytes (0.10 - 0.60 /CUMM) Pending 0.1 L Absolute Eosinophils (0.0 - 0.7 /CUMM) Pending 0 Absolute Basophils (0.0 - 0.2 /CUMM) Pending 0 PUBS MCHC (33.0 - 37.0 G/DL) Pending 33.3 ESR Westergren (0 - 10 MM) Pending Retic Count (0.5 - 2.0 %) 2.75 H 10/10 10/10 0613 0600 Chemistry Sodium (137 - 145 mmol/L) 139 Potassium (3.5 - 5.1 mmol/L) 4.1 Chloride (98 - 107 mmol/L) 108 H Carbon Dioxide (22 - 30 mmol/L) 20 L Anion Gap (5 - 16) 11 BUN (9 - 20 mg/dL) 83 H Creatinine (0.7 - 1.2 mg/dL) 2.8 H Estimated GFR (>60 ml/min) 22 L BUN/Creatinine Ratio (7 - 25 %) 29.6 H Coagulation PT (9.4 - 12.5 SEC) 34.8 H INR (0.90 - 1.17) 3.35 H Hematology CBC w Diff MAN DIFF ORDERED WBC (4.8 - 10.8 /CUMM) 18.8 H RBC (4.70 - 6.10 /CUMM) 3.11 L Hgb (14.0 - 18.0 G/DL) 9.1 L Hct (42 - 52 %) 26.4 L MCV (80.0 - 94.0 FL) 84.8 MCH (27.0 - 31.0 PG) 29.1 RDW (11.5 - 14.5 %) 15.8 H Plt Count (130 - 400 /CUMM) 78 L MPV (7.4 - 10.4 FL) 8.2 Gran % (42.2 - 75.2 %) 91.4 H Lymphocytes % (20.5 - 51.1 %) 3.7 L Monocytes % (1.7 - 9.3 %) 4.9 Eosinophils % (0 - 5 %) 0 Basophils % (0.0 - 2.0 %) 0 L Absolute Granulocytes (1.4 - 6.5 /CUMM) 17.2 H Absolute Lymphocytes (1.2 - 3.4 /CUMM) 0.7 L Absolute Monocytes (0.10 - 0.60 /CUMM) 0.9 H Absolute Eosinophils (0.0 - 0.7 /CUMM) 0 Absolute Basophils (0.0 - 0.2 /CUMM) 0 Platelet Estimate (ADEQUATE) DECREASED Polychromasia 1+ Hypochromic-Microcytic 1+ Poikilocytosis 1+ Anisocytosis 1+ Ovalocytes 1+ PUBS MCHC (33.0 - 37.0 G/DL) 34.3 Immunology ANCA Pending Complement C3 Pending Complement C4 Pending Miscellaneous Ref Lab Test Result Pending
[2016-10-12] MEDS ORDERED: JANUVIA50 M1 PO (09:53)
[2016-10-12] MEDS ORDERED: COUMADIN1 M1 PO (09:53)
--- NOTE | 2016-10-12 10:04 | PN- Att Addend ---
Attending Addendum Attending Brief Note Patient has had no recurrent episodes of hemoptysis or epistaxis General Appearance: Alert, No Acute Distress Skin: Grossly normal HEENT: PEERLA Neck: Supple, No JVD Cardiovascular: Regular Rate, Normal S1, Normal S2, No Murmurs Lungs: Clear to Auscultation, Normal Air Movement Abdomen: Normal Bowel Sounds, Soft, No Tenderness Neurological: Normal Speech, Strength at 5/5 X4 Ext, Cranial Nerves 3-12 NL, Reflexes 2+ Extremities: No Clubbing, No Cyanosis, No Edema Vascular: Normal Pulses Assessment Suspect blood in the sputum was secondary to epistaxis since patient is having significant epistaxis at the rehabilitation and he has for many times brought up extremely large sizes of clots from his nose. We will resume Coumadin and observe. need outpatient ENT evaluation. In the meantime kidney functions are mildly elevated and renal biopsy if pursued can be done as outpatient. Leukocytosis the setting of steroids. Escherichia coli in the urine likely colonization. Plan Follow off antibiotics Resume Coumadin Follow nephro recommendations ENT evaluation as outpatient Continue other home meds Hold Lasix upon discharge Patient is stable for discharge Current Medications Sig/Dagoberto Start time Last Medication Dose Route Stop Time Status Admin Acetaminophen 650 MG Q6P PRN 10/09 1300 AC PO Atorvastatin Calcium 20 MG 1700 10/08 1700 AC 10/11 PO 1735 Furosemide 40 MG Q48 10/12 1000 AC PO Hydralazine HCl 25 MG BID 10/08 2200 AC 10/12 PO 0952 Insulin Aspart 0 TIDAC 10/11 1700 AC SC Isosorbide 30 MG DAILY 10/09 1000 AC 10/12 Mononitrate PO 0952 Metoprolol Tartrate 50 MG BID 10/08 2200 AC 10/12 PO 0952 Multivitamins 1 TAB DAILY 10/09 1000 AC 10/12 PO 0954 Omeprazole 40 MG DAILY AC 10/09 0700 AC 10/12 PO 0621 Oxycodone HCl 5 MG Q8P PRN 10/08 1515 AC PO Oxycodone/ 1 TAB Q8P PRN 10/08 1515 AC Acetaminophen PO Patient Medication 1 ED .STK-MED ONE 10/11 1402 DC Teaching ED 10/11 1403 Prednisone 60 MG DAILY 10/09 1000 AC 10/12 PO 0952 Senna/Docusate Sodium 2 TAB QPM 10/08 2200 AC 10/10 PO 2131 Laboratory Tests 10/12 0605 Chemistry Sodium (137 - 145 mmol/L) 138 Potassium (3.5 - 5.1 mmol/L) 4.8 Chloride (98 - 107 mmol/L) 107 Carbon Dioxide (22 - 30 mmol/L) 23 Anion Gap (5 - 16) 8 BUN (9 - 20 mg/dL) 64 H Creatinine (0.7 - 1.2 mg/dL) 2.3 H Estimated GFR (>60 ml/min) 28 L BUN/Creatinine Ratio (7 - 25 %) 27.8 H Coagulation PT (9.4 - 12.5 SEC) 23.7 H INR (0.90 - 1.17) 2.28 H Hematology CBC w Diff MAN DIFF ORDERED WBC (4.8 - 10.8 /CUMM) 17.5 H RBC (4.70 - 6.10 /CUMM) 3.15 L Hgb (14.0 - 18.0 G/DL) 9.2 L Hct (42 - 52 %) 27.0 L MCV (80.0 - 94.0 FL) 86.0 MCH (27.0 - 31.0 PG) 29.3 RDW (11.5 - 14.5 %) 16.3 H Plt Count (130 - 400 /CUMM) 86 L MPV (7.4 - 10.4 FL) 8.1 Gran % (42.2 - 75.2 %) 92.0 H Lymphocytes % (20.5 - 51.1 %) 3.4 L Monocytes % (1.7 - 9.3 %) 4.6 Eosinophils % (0 - 5 %) 0 Basophils % (0.0 - 2.0 %) 0 L Absolute Granulocytes (1.4 - 6.5 /CUMM) 16.1 H Absolute Lymphocytes (1.2 - 3.4 /CUMM) 0.6 L Absolute Monocytes (0.10 - 0.60 /CUMM) 0.8 H Absolute Eosinophils (0.0 - 0.7 /CUMM) 0 Absolute Basophils (0.0 - 0.2 /CUMM) 0 Platelet Estimate (ADEQUATE) DECREASED Hypochromic-Microcytic 1+ Poikilocytosis 2+ Anisocytosis 1+ Ovalocytes 1+ PUBS MCHC (33.0 - 37.0 G/DL) 34.1 ESR Westergren (0 - 10 MM) 45 H Vital Signs Date Time Temp Pulse Resp B/P B/P Pulse O2 O2 Flow FiO2 Mean Ox Delivery Rate 10/12 0952 90 114/62 10/12 0755 96.1 86 18 140/82 98 Room Air 10/12 0000 Room Air 10/11 2314 98.2 73 18 112/70 98 Room Air 10/11 2057 94 136/72 10/11 2056 94 136/72 10/11 1632 98.7 89 16 124/76 99 Room Air 10/11 1600 Room Air 10/11 1009 90 150/84 10/11 1009 90 150/84 10/11 1009 94.0 150/84
--- NOTE | 2016-10-12 12:38 | PN- Cardiology ---
Subjective Subjective: Denies any recurrent hemoptysis. No shortness of breath. Feeling a little weak but otherwise at baseline. Objective Vital Signs and I&Os Vital Signs Date Time Temp Pulse Resp B/P B/P Pulse O2 O2 Flow FiO2 Mean Ox Delivery Rate 10/12 0952 90 114/62 10/12 0800 Room Air 10/12 0755 96.1 86 18 140/82 98 Room Air 10/12 0000 Room Air 10/11 2314 98.2 73 18 112/70 98 Room Air 10/11 2057 94 136/72 10/11 205 94 136/72 10/11 1632 98.7 89 16 124/76 99 Room Air 10/11 1600 Room Air Intake & Output 10/12 1600 10/12 0800 10/12 0000 10/11 1600 10/11 0810/11 0000 Intake Total 250 560 520 450 400 Output Total 950 875 400 800 850 Balance -700 -315 120 -350 -450 Intake, IV 250 Intake, Oral 250 560 520 200 400 Number 2 1 0 Bowel Movements Output, Urine 950 875 400 800 850 Physical Exam: General: no apparent distress. Alert. Eyes: No obvious scleral icterus. HEENT: No jugular venous distention. Cardiovascular: Normal intensity S1/S2. Irregular. Left-sided pacemaker. Respiratory: no rales or ronchi Abdomen: no guarding or rebound tenderness. Musculoskeletal: No clubbing or cyanosis noted, no edema, lower extremity wound dressing noted Skin: warm Neurologic: No gross focal deficits noted. Current Medications: Current Medications Sig/Dagoberto Start time Last Medication Dose Route Stop Time Status Admin Acetaminophen 650 MG Q6P PRN 10/09 1300 AC PO Atorvastatin Calcium 20 MG 1700 10/08 1700 AC 10/11 PO 1735 Furosemide 40 MG Q48 10/12 1000 AC 10/12 PO 1125 Hydralazine HCl 25 MG BID 10/08 2200 AC 10/12 PO 0952 Insulin Aspart 0 TIDAC 10/11 1700 AC SC Isosorbide 30 MG DAILY 10/09 1000 AC 10/12 Mononitrate PO 0952 Metoprolol Tartrate 50 MG BID 10/08 2200 AC 10/12 PO 0952 Multivitamins 1 TAB DAILY 10/09 1000 AC 10/12 PO 0954 Omeprazole 40 MG DAILY AC 10/09 0700 AC 10/12 PO 0621 Oxycodone HCl 5 MG Q8P PRN 10/08 1515 AC PO Oxycodone/ 1 TAB Q8P PRN 10/08 1515 AC Acetaminophen PO Patient Medication 1 ED .[facility] 10/11 1402 MT Teaching ED 10/11 1403 Prednisone 60 MG DAILY 10/09 1000 AC 10/12 PO 0952 Senna/Docusate Sodium 2 TAB QPM 10/08 2200 AC 10/10 PO 2131 Results Last 48 Hrs of Labs/Mics: Laboratory Tests 10/12/16 0605: Anion Gap 8, Estimated GFR 28 L, BUN/Creatinine Ratio 27.8 H, PT 23.7 H, INR 2.28 H, CBC w Diff MAN DIFF ORDERED, RBC 3.15 L, MCV 86.0, MCH 29.3, RDW 16.3 H, MPV 8.1, Gran % 92.0 H, Lymphocytes % 3.4 L, Monocytes % 4.6, Eosinophils % 0, Basophils % 0 L, Absolute Granulocytes 16.1 H, Absolute Lymphocytes 0.6 L, Absolute Monocytes 0.8 H, Absolute Eosinophils 0, Absolute Basophils 0, Platelet Estimate DECREASED, Hypochromic-Microcytic 1+, Poikilocytosis 2+, Anisocytosis 1+, Ovalocytes 1+, PUBS MCHC 34.1, ESR Westergren 45 H 10/11/16 0605: Anion Gap 7, Estimated GFR 27 L, BUN/Creatinine Ratio 29.2 H, Hemoglobin A1c 6.8 H, PT 30.9 H, INR 2.97 H, CBC w Diff NO MAN DIFF REQ, RBC 3.03 L, MCV 86.1, MCH 28.7, RDW 16.3 H, MPV 8.2, Gran % 97.1 H, Lymphocytes % 2.6 L, Monocytes % 0.3 L, Eosinophils % 0, Basophils % 0 L, Absolute Granulocytes 18.4 H, Absolute Lymphocytes 0.5 L, Absolute Monocytes 0.1 L, Absolute Eosinophils 0, Absolute Basophils 0, PUBS MCHC 33.3, Retic Count 2.75 H Recent Imaging Studies: Telemetry tracings were personally reviewed and showed atrial fibrillation with occasional pacing Assessment/Plan Assessment/Plan 1. 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 Persistent atrial fibrillation on anticoagulation with Coumadin 3. History of coronary artery disease/prior myocardial infarction with mild to moderate left ventricular dysfunction by previous noninvasive imaging, now with severe LV dysfunction 4. Epistaxis/hemoptysis/hematuria 5. Anemia 6. Chronic left bundle branch block 7. Hx HTN 8. Venous insufficiency 9. Thrombocytopenia 10. Prolonged pauses, s/p MRI compatible single lead permanent pacemaker 09/09/16 Doing well. INR currently within therapeutic range. No recurrent epistaxis/ hemoptysis. Plan for outpatient ENT evaluation. Given the thrombocytopenia would not resume aspirin for the time being. Lasix dosing per nephrology. Cardiac status remains stable. We'll defer to nephrology about restarting ARB in the future. Will need repeat echocardiogram for assessment of ejection fraction as an outpatient in the future. Jonh Stanley MD [facility] Continue telemetry? No
[2016-10-12 14:00] VITALS: BP 114/62
--- NOTE | 2016-10-12 15:04 | Event Note ---
Event Note Event Note: refer to note 09/09/16 for wound care instructions
== END 2016-10-12 15:45 | DRG 151 ==
LOC: CANRESERV → ENRESERVTM → ENRESERVDT → ERH 11:06 → 1NO 13:19 → ERHI 13:19 → EDBEDREQ 15:58 → 1NO 17:57 → ENPENDDIS 10-12 13:39 → 1NO 10-12 15:45
PROVIDERS: Dermatology; Internal Medicine; Physician Assistant; Student in an Organized Health Care Education/Training Program; ADMIT Internal Medicine
PROC: 30233N1 Transfusion of Nonautologous Red Blood Cells into Peripheral Vein, Percutaneous Approach (ICD-10-PCS; principal; 2016-10-08)
DX: R04.0 Epistaxis (principal); N17.9 Acute kidney failure, unspecified; L89.319 Pressure ulcer of right buttock, unspecified stage; D68.32 Hemorrhagic disorder due to extrinsic circulating anticoagulants; M31.0 Hypersensitivity angiitis; E11.22 Type 2 diabetes mellitus with diabetic chronic kidney disease; L89.329 Pressure ulcer of left buttock, unspecified stage; D69.6 Thrombocytopenia, unspecified; I48.1 Persistent atrial fibrillation; L97.819 Non-pressure chronic ulcer of other part of right lower leg with unspecified severity; R04.2 Hemoptysis; I44.7 Left bundle-branch block, unspecified; I25.5 Ischemic cardiomyopathy; I77.6 Arteritis, unspecified; I25.2 Old myocardial infarction; Z95.0 Presence of cardiac pacemaker; T45.515A Adverse effect of anticoagulants, initial encounter; I87.2 Venous insufficiency (chronic) (peripheral); I12.9 Hypertensive chronic kidney disease with stage 1 through stage 4 chronic kidney disease, or unspecified chronic kidney disease; N18.9 Chronic kidney disease, unspecified; I25.10 Atherosclerotic heart disease of native coronary artery without angina pectoris; Z79.01 Long term (current) use of anticoagulants
CPT/HCPCS: 1NSP; 83520; 86021; 86160; 36415; 76775; 81001; 82436; 86920; 87070; 87086; 93005; 93010; 96374; 97110-GO; 97116-GO; 97162-GP; 97530-GO; 99291; J1940; P9016

== ENCOUNTER 2016-10-24 19:30 | Inpatient (IN) | payer OTHER ==
[~2016-10-24] VITALS: Ht 177.8 cm; Wt 92.5 kg
[~2016-10-24 19:30] MED LIST changes: +COUMADIN1 M1 PO; +FUROSEMIDE40 M1 PO; +JANUVIA50 M1 PO; +LASIX20 M1 PO; +SENNA S TABLET1 EACH PO
--- NOTE | 2016-10-24 19:34 | ED GI/GU/ABDOMINAL COMPLAINT ---
History of Present Illness General Chief Complaint: General Adult Stated Complaint: SENT TO ED FOR ABNORMAL CT Source: patient, old records, EMS, [facility]10 Exam Limitations: no limitations Vital Signs & Intake/Output Vital Signs & Intake/Output Vital Signs Date Time Temp Pulse Resp B/P B/P Pulse O2 O2 Flow FiO2 Mean Ox Delivery Rate 10/245 96.5 98 16 118/86 96 Room Air 10/24 2013 Room Air 10/24 1945 97.2 90 16 131/88 99 Room Air Allergies Coded Allergies: No Known Allergies (09/10/16) Reconcile Medications Acetaminophen (Acephen) 650 MG SUPP.RECT 1 SUPP HI Q4H PRN PAIN/TEMP>100 ( Reported) Acetaminophen 325 MG TABLET 2 TAB PO Q4H PRN PAIN/TEMP>/100 (Reported) Atorvastatin Calcium 20 MG TABLET 20 MG PO 1700 CHOLESTEROL Bisacodyl 10 MG SUPP.RECT 1 SUP RC PRN CONSTIPATION (Reported) Furosemide 40 MG TABLET 1 TAB PO DAILY WATER RETENTION (Reported) Hydralazine HCl 25 MG TABLET 25 MG PO BID CARDIOMYOPATHY Isosorbide Mononitrate (Isosorbide Mononitrate ER) 30 MG TAB.ER.24H 30 MG PO DAILY CARDIOMYOPATHY Lactobacillus Acidophilus (Acidophilus) 1 EACH CAPSULE 1 CAP PO BID PROBIOTIC (Reported) Magnesium Hydroxide (Milk Of Magnesia) 400 MG/5 ML ORAL.SUSP 30 ML PO DAILY PRN CONSTIPATION (Reported) Metoprolol Tartrate 50 MG TABLET 1 TAB PO BID AFIB (Reported) Multivit-Min/FA/Lycopen/Lutein (Centrum Silver Men Tablet) 300 MCG-600 MCG-300 MCG TABLET 1 TAB PO DAILY SUPPLEMENT (Reported) Na Phos,M-B/Na Phos,Di-Ba (Fleet Enema) 19 GRAM-7 GRAM/118 ML ENEMA 1 E RC DAILY PRN CONSTIPATION (Reported) Omeprazole 20 MG CAPSULE.DR 40 MG PO DAILY AC GI PROPHYLAXIS Prednisone 20 MG TABLET 60 MG PO DAILY VASCULITIS Protein Supplement (Promod) 946 ML LIQUID 30 ML PO BID SUPPLEMENT (Reported) Sennosides/Docusate Sodium (Senna S Tablet) 8.6 MG-50 MG TABLET 2 TAB PO QPM CONSTIPATION (Reported) Sitagliptin Phosphate (Januvia) 50 MG TABLET 1 TAB PO DAILY diabetes Tramadol HCl 50 MG TABLET 1 TAB PO Q8H PRN MODERATE TO SEVERE PAIN (Reported) Warfarin Sodium (Coumadin) 3 MG TABLET 1 TAB PO DAILY BLOOD THINNER (Reported ) Triage Nurses Notes Reviewed? yes Onset: Gradual Duration: day(s):, waxing and waning Timing: recent history Location: suprapubic Radiation: no radiation Activities at Onset: none Prior Abdominal Problems: none Modifying Factors: Worsens With: palpation. Associated Symptoms: abdominal pain, weakness HPI: 71yo gentleman presents with abdominal discomfort. Staff from she would moan more ill called the ED stating that a CAT scan was done this evening which revealed air in the bladder and a concern for rupture of the bladder. Of note he had cystoscopy on 10/20/2016. Upon arrival, the patient stepped states that he has some mild lower abdominal discomfort. He has no fever chills nausea vomiting or diarrhea. He is otherwise well. Past History Travel History Traveled to [place] past 21 day No Medical History Any Pertinent Medical History? 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 No Review of Systems Review of Systems Constitutional: Reports: no symptoms. EENTM: Reports: no symptoms. Respiratory: Reports: no symptoms. Cardiovascular: Reports: no symptoms. GI: Reports: no symptoms. Genitourinary: Reports: no symptoms. Musculoskeletal: Reports: no symptoms. Skin: Reports: no symptoms. Neurological/Psychological: Reports: no symptoms. Hematologic/Endocrine: Reports: no symptoms. Immunologic/Allergic: Reports: no symptoms. All Other Systems: Reviewed and Negative Physical Exam Physical Exam General Appearance: well developed/nourished, mild distress Head: atraumatic, normal appearance Eyes: Bilateral: normal appearance. Ears, Nose, Throat, Mouth: hearing grossly normal Neck: normal inspection, supple, full range of motion, normal alignment Respiratory: normal breath sounds, chest non-tender, no respiratory distress, quiet respiration, lungs clear Cardiovascular: regular rate/rhythm Gastrointestinal: normal bowel sounds, soft, mild tenderness in the suprapubic region. No rebound no guarding. Positive bowel sounds Male Genitals: normal genitalia Back: normal inspection Extremities: normal range of motion Neurologic/Psych: no motor/sensory deficits, awake, alert, oriented x 3 Skin: intact, normal color, warm/dry Core Measures ACS in differential dx? No Severe Sepsis Present: No Septic Shock Present: No Progress Differential Diagnosis: bladder rupture versus cystitis versus sepsis versus renal failure with hyperkalemia versus other Plan of Care: Orders Procedure Date/time Status Nothing by Mouth 10/25 B Active CBC WITHOUT DIFFERENTIAL 10/25 599 Active BASIC ELECTROLYTES PLUS BUN&CR 10/25 599 Active Intake & Output 10/24 2221 Active Saline Lock 10/24 2217 Active Pathway - chart 10/24 2217 Active House Staff 10/24 2217 Active CULTURE,URINE 10/24 2208 Active Rivera, Insertion/Removal/Asses 10/24 2199 Active Patient Data 10/24 2144 Active Saline Lock 10/24 2137 Active Misc Message 10/24 2137 Active ED Holding Orders 10/24 2137 Active Vital Signs 10/24 2137 Active Code Status 10/24 2137 Active Admit to inpatient 10/24 2136 Active FingerStick- Glucose 10/24 2125 Active BLOOD CULTURE 10/24 2034 Active CULTURE,URINE 10/24 2030 Active BLOOD CULTURE 10/24 2030 Active URINALYSIS 10/24 1933 Complete TROPONIN LEVEL 10/24 1933 Complete PARTIAL THROMBOPLASTIN TIME 10/24 1933 Complete PROTHROMBIN TIME 10/24 1933 Complete LIPASE 10/24 1933 Complete COMPREHENSIVE METABOLIC PANEL 10/24 1933 Complete CBC WITHOUT DIFFERENTIAL 10/24 1933 Complete AMYLASE 10/24 1933 Complete EKG 10/24 1933 Active TYPE & SCREEN (NOT X-MATCH) 10/24 1933 Complete VTE Mechanical Prophylaxis 10/24 UNK Active Hemoccult 10/24 UNK Active Laboratory Tests 10/24/162103: Urine Color YEL, Urine Clarity CLDY H, Urine pH 6.0, Ur Specific [place] 1.020, Urine Protein 100 H, Urine Ketones NEG, Urine Nitrite POS H, Urine Bilirubin NEG, Urine Urobilinogen 0.2, Ur Leukocyte Esterase MOD H, Ur Microscopic SEDIMENT EXAMINED, Urine RBC >75 H, Urine WBC 25-50 H, Ur Epithelial Cells RARE, Urine Bacteria MOD H, Urine Hemoglobin LARGE H, Urine Glucose NEG 10/24/161955: Anion Gap 9, Estimated GFR 43 L, BUN/Creatinine Ratio 28.1 H, Glucose 183 H, Calcium 8.1 L, Total Bilirubin 0.6, AST 20, ALT 47, Alkaline Phosphatase 130 H , Troponin I 0.06, Total Protein 5.0 L, Albumin 2.0 L, Globulin 3.0, Albumin/ Globulin Ratio 0.7 L, Amylase < 30 L, Lipase 202, PT 28.7 H, INR 2.76 H, APTT 28, CBC w Diff MAN DIFF ORDERED, RBC 3.44 L, MCV 85.0, MCH 28.8, RDW 17.1 H, MPV 8.2, Gran % 95.0 H, Lymphocytes % 2.5 L, Monocytes % 2.3, Eosinophils % 0.1, Basophils % 0.1, Absolute Granulocytes 18.3 H, Segmented Neutrophils 97 H , Band Neutrophils 2, Absolute Lymphocytes 0.5 L, Lymphocytes 1 L, Absolute Monocytes 0.4, Absolute Eosinophils 0, Absolute Basophils 0, Platelet Estimate VERIFIED BY SMEAR, Polychromasia 1+, Anisocytosis 1+, Ovalocytes FEW, PUBS MCHC 33.9, Fld Total RBCs Counted 100 Microbiology 10/24 2208 URINE ROUT: Urine Culture - ORD 10/25 2103 URINE ROUT: Urine Culture - RECD 10/24 2054 BLOOD: Blood Culture - RECD 10/24 2044 BLOOD: Blood Culture - RECD Diagnostic Imaging: Viewed by Me: CT Scan. Discussed w/RAD: CT Scan. Radiology Impression: abd/pelvic ct... pneumocystitis as noted below... other findings as noted, full report below. Initial ED EKG: normal axis, normal intervals, normal p-waves, normal QRS complex, normal sinus rhythm, no peaked t waves. Comments: PATIENT: AMELIA VALVERDE PRESENT AGE: 71 PATIENT ACCOUNT NO: [id number] : 44 LOCATION: [facility] ORDERING PHYSICIAN: JYOTHI SAUL APRN SERVICE DATE: 10/24/16- EXAM TYPE: CAT - CT LOWER EXT WO IV CONTRAST; CT PELVIS WO IV CONTRAST EXAMINATION: CT PELVIS WITHOUT CONTRAST CT LEFT HIP WITHOUT CONTRAST CLINICAL INFORMATION: Left hip pain and pelvic pain. Evaluate for fracture. COMPARISON: CT abdomen and pelvis without contrast 08/28/2016. TECHNIQUE: Multiple axial CT images of the pelvis and left hip were obtained without intravenous contrast. 2-D coronal and sagittal reformatted images of the pelvis and left hip were obtained at the acquisition workstation. FINDINGS: Pelvis: Evaluation of the pelvis demonstrates interval development of extensive air within the bladder wall with extraluminal air also identified within the pelvis and lower abdomen. Specifically, there is a large pocket of air anterior to the bladder, coursing superiorly into the lower abdomen. Urinary bladder is moderately distended. However, there is no visible free spillage of urine into the lower abdomen or pelvis. The visualized bones appear demineralized. No acute pelvic fractures are identified. There are mild degenerative changes involving the bilateral hip joints. There are also moderate degenerative changes involving the bilateral sacroiliac joints. The sacral arcuate lines are grossly intact. There is partially visualized moderate facet arthrosis of the imaged lower lumbosacral spine. Evaluation of the included soft tissues demonstrates extensive sigmoid diverticulosis, without secondary signs of acute diverticulitis. There is a moderate amount of retained stool within the imaged large bowel. Small calcifications are present within the prostate gland. There is no significant deep pelvic or inguinal adenopathy. There is limited evaluation of the vasculature given lack of intravenous contrast. Left hip: No acute fracture or dislocation of the left hip. Mild degenerative changes involving the left hip joint. IMPRESSION: 1. In comparison to a prior CT of the abdomen and pelvis dated 08/28/2016, there has been interval development of extensive emphysema within the bladder wall. Extraluminal air is also visualized within the lower abdomen as well as within the pelvis, anterior and superior to the bladder. Differential diagnostic considerations include but are not limited to emphysematous cystitis. If the patient has had recent attempt at a Rivera catheter placement, this finding may be iatrogenic in etiology, although this latter differential is less favored given lack of spillage of urine from the urinary bladder into the central pelvis. 2. Demineralization of the visualized bones without acute fracture or dislocation of the pelvis or left hip. There are mild degenerative changes involving the bilateral hip joints. 3. Extensive sigmoid colonic diverticulosis, without secondary signs of acute diverticulitis. 4. A moderate amount of retained stool within the colon. This critical result was discussed with Dr. Pérez at 6:25 PM on 10/24/2016 and it was ascertained that the content and urgency of the report was understood at the time of direct communication. DICTATED BY: TIN LYLES MD DATE/TIME DICTATED:10/24/161758 PUBLIC RECORDS OFFICER:SUDHIR DATE/TIME TRANSCRIBED:10/24/161758 CONFIDENTIAL, DO NOT COPY WITHOUT APPROPRIATE AUTHORIZATION. <Electronically signed in Other Vendor System> SIGNED BY: TIN LYLES MD 10/24/16 1836 Departure Departure Disposition: HOME OR SELF CARE Condition: Stable Clinical Impression Primary Impression: Sepsis Secondary Impressions: Chronic renal failure, Hyperkalemia, Urinary tract infection Referrals: ADAN FENTON MD (PCP/Family) Departure Forms: Customer Survey General Discharge Information Comments 10/24/16, 21:05... discussed with dr. larkin (urology) who will see patient in the AM and advocated bladder decompression with coude catheter. Admission Note Spoke With: GÓMEZ BAKER,EMILIANO Holt Documentation of Exam: Documentation of any treatments & extenuating circumstances including Concerns Regarding Discharge (functional status, medication knowledge or non-compliance, living conditions, etc.) that warrant an admission rather than observation: pt with sepsis, concern about bladder rupture vs infection, as well as hyperkalemia. pt stable for tele... pt merits iv abx, electrolyte management, urology consultation. Critical Care Note Critical Care Note Critical Care Time: 30-74 min Comments: pt given insulin/d50/kayaxlate for elevated potassium pt given ctx and discussed with urology for bladder issue.
--- NOTE | 2016-10-24 19:48 | NUR ---
PT DILLAN FROM [facility] FOR CT RESULTS THAT SHOWED FREE FLUID IN ABD AND PELVIS R/T ?PERFORATED BLADDER. PT DENIES PAIN ON ARRIVAL. AWAKE/ALERT WITH EASY WOB.
[2016-10-24 20:13] LABS: ABSOLUTE BASOPHIL COUNT 0 /CUMM (0.0-0.2); ABSOLUTE EOSINOPHIL COUNT 0 /CUMM (0.0-0.7); ABSOLUTE GRANULOCYTE CT 18.3 /CUMM (1.4-6.5); ABSOLUTE LYMPH COUNT 0.5 /CUMM (1.2-3.4); ABSOLUTE MONOCYTE COUNT 0.4 /CUMM (0.10-0.60); BASOPHIL % 0.1 % (0.0-2.0); EOSINOPHIL % 0.1 % (0-5); HEMATOCRIT 29.3 % (42-52); MEAN CORPUSCULAR HGB 28.8 PG (27.0-31.0); MEAN CORPUSCULAR HGB CONC 33.9 G/DL (33.0-37.0); MEAN PLATELET VOLUME 8.2 FL (7.4-10.4); RBC DISTRIBUTION WIDTH 17.1 % (11.5-14.5); RED BLOOD CELL CT 3.44 /CUMM (4.70-6.10); WHITE BLOOD CELL COUNT 19.3 /CUMM (4.8-10.8)
--- NOTE | 2016-10-24 20:13 | NUR ---
PT REPORTS TO THIS RN THAT HE HAS NO PAIN CURRENTLY BUT WITH MOVEMENT OR DEEP PALPATION HAS PAIN TO L FLANK RADIATING DOWN TO L KNEE. VOIDS INTO URINAL, VOIDED JUST PRIOR TO BEING TRANSPORTED TO ED BY AMBULANCE.
[2016-10-24 20:15] LABS: PLATELET COUNT 72 /CUMM (130-400)
[2016-10-24 20:22] LABS: PT 28.7 SEC (9.4-12.5); PTT 28 SEC (25-37)
--- NOTE | 2016-10-24 20:43 | NUR ---
CRITICAL TEST RESULTS [id number] AMELIA VALVERDE 71 M TESTS AND RESULTS: POTASSIUM 6.2 Results received and read back by: SJ HUSAIN Results received date and time: 10/24/162042 The following provider was notified of the results, and read the results back: MD GATICA Notified date and time: 10/24/16 at 2042
--- NOTE | 2016-10-24 20:44 | NUR ---
THIS RN SPOKE WITH SVETA (NURSE AT [facility]) PT'S UROLOGIST IS MD GOLDBERG. PER NURSE AT [facility] "THEY HAD TO PUT A SCOPE UP HIS BLADDER 3 TIMES AND HE HAS BEEN COMPLAINING OF L FLANK/GROIN PAIN SINCE HE GOT BACK AFTER THE PROCEDURE LAST WEEK."
[2016-10-24] MEDS ORDERED: PROMOD946 ML PO (21:13)
[2016-10-24] MEDS ORDERED: COUMADIN3 M1 PO (21:16)
[2016-10-24] MEDS ORDERED: ACIDOPHILUS1 EACH PO (21:16)
[2016-10-24] MEDS ORDERED: ACEPHEN650 M1 PR (21:18)
[2016-10-24] MEDS ORDERED: BISACODYL10 M1 RC (21:19)
[2016-10-24] MEDS ORDERED: FLEET ENEMA133 ML RC (21:19)
[2016-10-24] MEDS ORDERED: ACETAMINOPHEN325 M2 PO (21:20)
[2016-10-24] MEDS ORDERED: MILK OF MA400 MG/52 PO (21:20)
[2016-10-24] MEDS ORDERED: TRAMADOL HCL50 M1 PO (21:21)
--- NOTE | 2016-10-24 21:55 | NUR ---
MD GATICA AT BEDSIDE FOR HART PLACEMENT. PER MD GOLDBERG PT TO HAVE HART PLACED WITH 18FR COUDE.
--- NOTE | 2016-10-24 22:20 | NUR ---
PT TO ROOM 181 BED 1
--- NOTE | 2016-10-24 22:34 | NUR ---
REPORT TO FAWAD ROGERS
--- NOTE | 2016-10-24 23:18 | History & Physical ---
ALEYDA BAKER,[facility] 10/24/16 3787: General Information and HPI MD Statement: I have seen and personally examined AMELIA VALVERDE and documented this H&P. The patient is a 71 year old M who presented with a patient stated chief complaint of [hematuria, left leg and groin pain]. Source of Information: patient, old records, W10 Exam Limitations: no limitations, clinical condition History of Present Illness: Mr. Valverde is 71 year-old male with PMH significant for atrial fibrillation on anticoagulation with Coumadin, ID, coronary artery disease s/p PCI, LBBB s/p permanent pacemaker, CHF EF 25%, hypertension, varicose veins, chronic anemia, thrombocytopenia, acute renal failure, and venous insufficiency presented to ED from [facility] with chief complaint of left leg, groin and pain and hematuria status post cystoscopy on 10/20. Patient had cystoscopy on 10/20 for hematuria, after the procedure he had constant left leg and groin pain that's 10/10 pressure in nature, patient reported dysuria for 2 days after the procedure, denied any abdominal pain, abdominal tenderness, change in bowel habits, nausea, vomiting, fever or chills. Patient denied any chest pain, palpitation, shortness of breath. Allergies/Medications Allergies: Coded Allergies: No Known Allergies (09/10/16) Home Med list Acetaminophen (Acephen) 650 MG SUPP.RECT 1 SUPP MI Q4H PRN PAIN/TEMP>100 ( Reported) Acetaminophen 325 MG TABLET 2 TAB PO Q4H PRN PAIN/TEMP>/100 (Reported) Atorvastatin Calcium 20 MG TABLET 20 MG PO 1700 CHOLESTEROL Bisacodyl 10 MG SUPP.RECT 1 SUP RC PRN CONSTIPATION (Reported) Furosemide 40 MG TABLET 1 TAB PO DAILY WATER RETENTION (Reported) Hydralazine HCl 25 MG TABLET 25 MG PO BID CARDIOMYOPATHY Isosorbide Mononitrate (Isosorbide Mononitrate ER) 30 MG TAB.ER.24H 30 MG PO DAILY CARDIOMYOPATHY Lactobacillus Acidophilus (Acidophilus) 1 EACH CAPSULE 1 CAP PO BID PROBIOTIC (Reported) Magnesium Hydroxide (Milk Of Magnesia) 400 MG/5 ML ORAL.SUSP 30 ML PO DAILY PRN CONSTIPATION (Reported) Metoprolol Tartrate 50 MG TABLET 1 TAB PO BID AFIB (Reported) Multivit-Min/FA/Lycopen/Lutein (Centrum Silver Men Tablet) 300 MCG-600 MCG-300 MCG TABLET 1 TAB PO DAILY SUPPLEMENT (Reported) Na Phos,M-B/Na Phos,Di-Ba (Fleet Enema) 19 GRAM-7 GRAM/118 ML ENEMA 1 E RC DAILY PRN CONSTIPATION (Reported) Omeprazole 20 MG CAPSULE.DR 40 MG PO DAILY AC GI PROPHYLAXIS Prednisone 20 MG TABLET 60 MG PO DAILY VASCULITIS Protein Supplement (Promod) 946 ML LIQUID 30 ML PO BID SUPPLEMENT (Reported) Sennosides/Docusate Sodium (Senna S Tablet) 8.6 MG-50 MG TABLET 2 TAB PO QPM CONSTIPATION (Reported) Sitagliptin Phosphate (Januvia) 50 MG TABLET 1 TAB PO DAILY diabetes Tramadol HCl 50 MG TABLET 1 TAB PO Q8H PRN MODERATE TO SEVERE PAIN (Reported) Warfarin Sodium (Coumadin) 3 MG TABLET 1 TAB PO DAILY BLOOD THINNER (Reported ) Past History Travel History Traveled to [place] past 21 day No Medical History Neurological: NONE EENT: NONE Cardiovascular: AFIB, hypertension, RUPTURED VARICOSE VEIN Respiratory: NONE Gastrointestinal: HEMMORHOIDS Hepatic: NONE Renal: chronic kidney disease Musculoskeletal: DIFFICULTY AMBULATING Psychiatric: NONE Endocrine: NONE Blood Disorders: NONE Cancer(s): NONE 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 child Services at Home: None Primary Language: Persian Functional Ability ADLs Needs Assist: dressing, eating, toileting, bathing. IADLs Needs Assist: shopping, housework, finances, food prep, telephone, transportation, medication admin. Review of Systems Review of Systems Constitutional: Reports: see HPI. Exam & Diagnostic Data Last 24 Hrs of Vital Signs/I&O Vital Signs Date Time Temp Pulse Resp B/P B/P Pulse O2 O2 Flow FiO2 Mean Ox Delivery Rate 10/25 0146 97.8 103 16 122/68 97 Room Air 10/24 2135 96.5 98 16 118/86 96 Room Air 10/24 2013 Room Air 10/24 1944 97.2 90 16 131/88 99 Room Air Intake & Output 10/25 0800 10/25 0000 10/24 1600 Intake Total 1000 Output Total 770 Balance 230 Intake, IV 1000 Intake, Oral 0 Output, Urine 770 Patient 92.986 kg Weight Weight Reported by Patient Measurement Method Physical Exam General Appearance Alert, Oriented X3, Cooperative, No Acute Distress Skin No Rashes, No Breakdown, No Significant Lesion Skin Temp/Moisture Exam: Warm/Dry HEENT Atraumatic, PERRLA, EOMI, Very dry mucous memebrane Neck Supple, No JVD Lymphatic no lymphadenopathy Cardiovascular Normal S1, Normal S2, No Murmurs, irrigular Lungs Clear to Auscultation, Normal Air Movement Abdomen Normal Bowel Sounds, Soft, mild tenderness lower abdomen Neurological Normal Speech, Strength at 5/5 X4 Ext, Normal Tone, Sensation Intact, Cranial Nerves 3-12 NL, Reflexes 2+ Extremities No Clubbing, No Cyanosis, No Edema, Normal Pulses Assessment/Plan Assessment: Mr. Valverde is 71 year-old male with PMH significant for atrial fibrillation on anticoagulation with Coumadin, ID, coronary artery disease s/p PCI, LBBB s/p permanent pacemaker, CHF EF 25%, hypertension, varicose veins, chronic anemia, thrombocytopenia, acute renal failure, and venous insufficiency presented to ED from [facility] with chief complaint of left leg, groin and pain and hematuria status post cystoscopy on 10/20. On admission Vitals temperature 97.2, pulse 90, blood pressure 131/88, respiratory rate 16 with saturation 99% ( Labs leukocytosis is 19.3, platelets 72, H&H 9.9/29.3, sodium 129, potassium 6.2 ,, carbon dioxide 20, anion gap 9, BUN/creatinine 45/1.6, alkaline phosphatase 1 :30, albumin 2, calcium 8.1, troponin 0.06, INR 2.76, UA positive Image CT pelvis and left hip without IV contrast IMPRESSION: 1. In comparison to a prior CT of the abdomen and pelvis dated 08/28/2016, there has been interval development of extensive emphysema within the bladder wall. Extraluminal air is also visualized within the lower abdomen as well as within the pelvis, anterior and superior to the bladder. Differential diagnostic considerations include but are not limited to emphysematous cystitis. If the patient has had recent attempt at a Rivera catheter placement, this finding may be iatrogenic in etiology, although this latter differential is less favored given lack of spillage of urine from the urinary bladder into the central pelvis. 2. Demineralization of the visualized bones without acute fracture or dislocation of the pelvis or left hip. There are mild degenerative changes involving the bilateral hip joints. 3. Extensive sigmoid colonic diverticulosis, without secondary signs of acute diverticulitis. 4. A moderate amount of retained stool within the colon. Problem list #Extensive emphysema within the bladder wall s/p cystoscopy #Atrial fibrillation on Coumadin with therapeutic INR #UTI #Leukocytosis #Anemia #Thrombocytopenia #Elevated alkaline phosphatase #Hyponatremia #CKD -Admitt to telemetry -IV ceftriaxone for UTI -Patient received insulin, dextrose and kayxalate, will remeasure potassium in one hour -Hyponatremia, administer 1 bag of NS, BMP in AM -Patient has history of congestive heart failure with ejection fraction 25%, monitor ins and outs daily weights -Chronic thrombocytopenia, thrombocytopenia precaution -Optimal pain management for left hip, leg, groin pain -Urology consultation in a.m. -Consider GGT to rule out biliary disease in setting of elevated alkaline phosphatase -CBC in a.m., keep hemoglobin above 8 -Continue warfarin as anticoagulant -Code full -Diet nothing by mouth for possible urologic procedure As Ranked By This Provider Problem List: 1. Atrial fibrillation 2. Hyperkalemia 3. Urinary tract infection Core Measures/Miscellaneous Acute Coronary Syndrome ACS Diagnosis: No Cerebrovascular Accident CVA/TIA Diagnosis: No Congestive Heart Failure CHF Diagnosis: No Venous Thromboembolism VTE Risk Factors: Age > 40 No [facility] VTE prophylaxis d/t: No contraindications No VTE Pharm Prophylaxis d/t: No contraindications VTE Diagnosis: No VTE Type: NONE VTE Confirmed by (Test): NONE Severe Sepsis Severe Sepsis Present: No Septic Shock Septic Shock Present: No Miscellaneous Documentation Attending Case Discussed With: ADAN FENTON MD Primary Care Physician: ADAN FENTON MD Patient sees these Specialists Urology, cardiology Level of Patient Care: Telemetry DANYA HENDERSON 10/25/16 0129: Resident Review Statement Resident Statement: examined this patient, discussed with international coordinator, agreed with international coordinator, reviewed EMR data (avail) Other Findings: is a 71 yo man with PMHx. significant for atrial fibrillation on anticoagulation with Coumadin, prior myocardial infarct, chronic coronary artery disease with prior PCI, chronic left bundle-branch block, status post permanent pacemaker, EF 25%, hypertension, varicose veins, chronic anemia, thrombocytopenia, CKD, , possible cutaneous vascuilits, and venous insufficiency came presented to ED from [facility] for evaluation of abdominal pain. Patient was at urologist office for Cystoscopy that was done at 10/20, he developed sever in the left groin region, lateral aspect of the thigh down to the knee, per nursing facility team he developed a small amount of hematuria, a CT-abdomen was ordered which was done today which shows free fluid in the abdomen and pelvis which could be as a result of perforated bladder, there was also pneumocystitis, radiology department called [facility] and advised to send the patient to ED for more evaluation. Patient himself report that he developed very sever pain after the procedure, the pain is very sever with movement, resolved with rest, he denies any other symptoms. Review of symptoms -ve CT-abdomen/ pelvis @ 10/24/2016: IMPRESSION: 1. In comparison to a prior CT of the abdomen and pelvis dated 08/28/2016, there has been interval development of extensive emphysema within the bladder wall. Extraluminal air is also visualized within the lower abdomen as well as within the pelvis, anterior and superior to the bladder. Differential diagnostic considerations include but are not limited to emphysematous cystitis. If the patient has had recent attempt at a Rivera catheter placement, this finding may be iatrogenic in etiology, although this latter differential is less favored given lack of spillage of urine from the urinary bladder into the central pelvis. 2. Demineralization of the visualized bones without acute fracture or dislocation of the pelvis or left hip. There are mild degenerative changes involving the bilateral hip joints. 3. Extensive sigmoid colonic diverticulosis, without secondary signs of acute diverticulitis. 4. A moderate amount of retained stool within the colon. Vitals, labs and examination as above Assessment: #Leukocytosis which is most likely 2/2 to urological origin, he met criteria of sepsis in leukocytosis and tachycardia even #Groin pain, thigh and knee pain on the right side which could be radiating pain from recent injury s/p cystoscopy. Pain in the Rt. thigh and knee could be also related to arthritis #Hyperkalemia #Hematuria #Hyponatremia #Extensive emphysema within the bladder wall. Free air within the lower abdomen as well as within the pelvis. #Hyperkalemia #Hx. of A.fib on coumadin # Hx. of ID, CAD with prior PCI Plan: * Will admitt the patient to telemetry floor * Will start him on IV Ceftriaxone for UTI, pt. has recent urological procedure and had leukocytosis * Will palce urology consult with at am * Will repeat K level at 12 midnight and managed as indicated * Patient is stable, no EKG changes, will hold on cardiology consult and let am team assess the need at am * Will repeat cbc, bep, mg, po4 and INR at am * Pain management * Will continue home meds * Will continue coumadin * Blood cx. and urine cx. sent please F/U * case discussed with attending Full code DVT ppx: Coumadin ELICEO BAKER,[facility] 10/25/16 0930: Attending MD Review Statement Attending Statement Attending MD Statement: examined this patient, discuss w/resident/PA/IMMIGRATION MANAGER, agreed w/resident/PA/IMMIGRATION MANAGER, reviewed EMR data (avail)
[2016-10-25 01:46] VITALS: BP 122/68
--- NOTE | 2016-10-25 07:22 | PN- Housestaff ---
See Addendum Subjective Follow-up For: Left hip/groin/thigh pain UTI Possible perforation of the bladder s/p cystoscopy Hyperkalemia Tele-Events Since Last Visit: Atrial fibrillation HR 94-109 No events Subjective: No acute events overnight. Patient seen and examined this morning. He is sleeping comfortably but is easily arousable. He continues to endorse pain in his left hip, groin and thigh although improved from last night. He does not have any new complaints. He denies chest pain, shortness of breath or palpitations. Review of Systems Constitutional: Reports: see HPI. Objective Last 24 Hrs of Vital Signs/I&O Vital Signs Date Time Temp Pulse Resp B/P B/P Pulse O2 O2 Flow FiO2 Mean Ox Delivery Rate 10/25 1557 97.8 105 18 130/78 97 10/25 1533 Room Air 10/25 1118 111 130/68 05 1117 111 130/68 05/ 1117 111 130/68 10/25 1047 97.9 110 20 100/68 94 Room Air 10/25 0146 97.8 103 16 122/68 97 Room Air Intake & Output 10/25 1600 02 0800 10/25 0000 Intake Total 0 1000 Output Total 400 800 770 Balance -400 -800 230 Intake, IV 1000 Intake, Oral 0 0 Output, Urine 400 800 770 Patient 92.986 kg Weight Weight Reported by Patient Measurement Method Physical Exam General Appearance: Alert, Oriented X3, No Acute Distress HEENT: Atraumatic, Mucous Membr. moist/pink Neck: Supple Abdomen: Soft, No Tenderness, Positive Bowel Sounds Extremities: No Clubbing, No Cyanosis, No Edema Current Medications: Current Medications Sig/Dagoberto Start time Last Medication Dose Route Stop Time Status Admin Acetaminophen 650 MG Q6P PRN 10/25 1115 AC 10/25 PO 1828 Atorvastatin Calcium 20 MG 1700 10/25 1700 AC 05 PO 1621 Ceftriaxone Sodium 1,000 MG Q24H 10/25 1400 AC 05 IV 1450 Ceftriaxone Sodium 1,000 MG DAILY 10/25 1000 CAN IV Furosemide 40 MG DAILY 10/25 1000 CAN PO Furosemide 40 MG DAILY 10/25 1000 AC 10/25 PO 1118 Hydralazine HCl 25 MG BID 10/25 1000 AC 05 PO 1117 Hydromorphone HCl 0.2 MG ONCE ONE 10/25 1900 DC 10/25 IV 10/25 190 205 Insulin Aspart 0 TIDAC 10/25 1200 AC 10/25 SC 1828 Isosorbide 30 MG DAILY 10/25 1000 AC 10/25 Mononitrate PO 1117 Metoprolol Tartrate 50 MG BID 10/25 1000 AC 10/25 PO 1118 Multivitamins 1 TAB DAILY 10/25 1000 AC 10/25 PO 1118 Omeprazole 40 MG DAILY AC 10/25 1513 DC PO Omeprazole 40 MG DAILY AC 10/25 0810 AC 10/25 PO 1118 Patient Medication 1 ED .STK-MED ONE 10/25 1413 DC Teaching ED 10/25 1414 Sodium Chloride 1,000 ML Q13H 10/25 0900 CAN IV Sodium Chloride 1,000 ML BOLUS ONE 10/24 2115 DC 10/24 IV 10/24 2214 2125 Sodium Polystyrene 60 ML ONCE ONE 10/25 0730 DC 10/25 Sulfonate PO 10/25 0731 1119 Tramadol HCl 50 MG Q8P PRN 10/25 1115 AC 10/25 PO 1448 Vancomycin HCl 1,000 MG Q24H 10/25 1400 AC 10/25 Sodium Chloride 250 ML IV 1621 Vancomycin HCl 1,500 MG ONCE ONE 10/25 0915 CAN Sodium Chloride 250 ML IV 10/25 1014 Warfarin Sodium 3 MG DAILY 10/25 1000 CAN PO 10/25 1001 Last 24 Hrs of Lab/Hemal Results Last 24 Hrs of Labs/Mics: Laboratory Tests 10/25/16 1812: 10/25/16 0652: Anion Gap 9, Estimated GFR 46 L, BUN/Creatinine Ratio 28.7 H, PT 33.0 H, INR 3.18 H, CBC w Diff MAN DIFF ORDERED, RBC 3.29 L, MCV 84.3, MCH 27.8, RDW 17.0 H, MPV 8.4, Gran % 93.4 H, Lymphocytes % 2.6 L, Monocytes % 4.0, Eosinophils % 0, Basophils % 0 L, Absolute Granulocytes 18.4 H, Absolute Lymphocytes 0.5 L, Absolute Monocytes 0.8 H, Absolute Eosinophils 0, Absolute Basophils 0, Platelet Estimate DECREASED, Hypochromic-Microcytic 1+, Poikilocytosis 2+, Anisocytosis 1+, PUBS MCHC 32.9 L 10/25/16 0115: Phosphorus 4.4, Magnesium 1.6 BCx (10/24/16): Gram positive cocci in cluster x2 UCx (10/24/16): Multiple colony types present consistent with contamination. 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 #Positive blood cultures: BCx x2 from admission growing gram positive cocci in clusters. Etiology is unclear, with potential sources including UTI with possible perforation, right elbow in view of erythema, swelling and purulent drainage at site for one week prior to admission, pacemaker, albeit no signs of inflammation at the area, osteomyelitis with seeding of the lumbosacral spine given radiating left hip and thigh pain or contamination, although this is unlikely with two sets of positive cultures. Remains afebrile but with persistent leukocytosis, which could be secondary to steroid therapy. * ID following. Appreciate their recs. * Repeat BCx x2. * ECHO ordered to evaluate for infective endocarditis. * Orthopedic surgery consulted for evaluation for right elbow. * Consider MRI to evaluate for osteomyelitis if left hip and thigh pain persists. * Follow BCx from admission for speciation and susceptibilities. * Start vancomycin 1 g IV daily. #UTI: S/p cystoscopy for hematuria on 10/20/16 with urine cultures growing Escherichia coli but per urologist Dr. Macdonald patient has not been taking antibiotics as prescribed. CT Abdomen/Pelvis revealing extensive emphysema within the bladder as well as the extraluminal air within the lower abdomen and pelvis, however it is unlikely that these findings are related to the groin pain , especially since the onset of pain preceded the cystoscopy. Per ID, it may be prudent to treat as UTI given urgency prior to cystoscopy. * Urology following. Appreciate their recs. * Continue ceftriaxone 1 g IV daily. #Hyperkalemia: K improved to 5.7 today after Kayexalate. No EKG changes present. * Administer Kayexalate and recheck K in the evening. #Chronic venous ulcers: Healing with no evidence of infection. * Wound care following. Appreciate their recs. * Clean and cover with Xeroform daily. * Place patient on a low air loss mattress. #Atrial fibrillation: Supratherapeutic INR of 3.18 today. * Hold warfarin. * Monitor INR and resume warfarin once INR is no longer supratherapeutic. * Continue [id number] metoprolol 50 mg PO BID. #Pressure ulcers of the coccyx: * To be examined by wound care once adequate pain control is achieved. #Non-insulin dependent T2DM: Takes Januvia 50 mg PO daily. * Accu-checks and low-dose sliding scale Novolog TIDAC. #HFrEF: ECHO in August 2016 with LVEF estimated at 20-25%. * Continue [id number] Lasix 40 mg PO daily. * Monitor I/Os and daily weights. Diet: Consistent Carbohydrate 2 with 2 g Na and 2 g K Restriction DVT PPx: Warfarin and ALPs CODE: FULL Problem List: 1. Urinary tract infection 2. Hyperkalemia 3. Pressure ulcer of coccygeal region 4. S/P cystoscopy 5. Positive blood cultures 6. BPH (benign prostatic hyperplasia) 7. Venous stasis ulcers of both lower extremities 8. Glomerulonephritis 9. Atrial fibrillation 10. HFrEF (heart failure with reduced ejection fraction) 11. Non-insulin dependent type 2 diabetes mellitus Pain Ratin Pain Location: N/A Pain Goal: Remain pain free Pain Plan: Tylenol 650 mg PO Q6H PRN for mild pain (scale 1-3) Tramadol 50 mg PO Q8H PRN for moderate pain (scale 4-6) Tomorrow's Labs & Rationales: CBC to monitor WBC count in the setting of UTI BMP to monitor K and lytes in the setting of CKD and hyperkalemia LFTs to monitor elevated alkaline phosphatase INR in the setting of supratherapeutic INR
[2016-10-25 09:18] LABS: ABSOLUTE BASOPHIL COUNT 0 /CUMM (0.0-0.2); ABSOLUTE EOSINOPHIL COUNT 0 /CUMM (0.0-0.7); ABSOLUTE GRANULOCYTE CT 18.4 /CUMM (1.4-6.5); ABSOLUTE LYMPH COUNT 0.5 /CUMM (1.2-3.4); ABSOLUTE MONOCYTE COUNT 0.8 /CUMM (0.10-0.60); BASOPHIL % 0 % (0.0-2.0); EOSINOPHIL % 0 % (0-5); GRANULOCYTE % 93.4 % (42.2-75.2); HEMATOCRIT 27.7 % (42-52); MEAN CORPUSCULAR HGB 27.8 PG (27.0-31.0); MEAN CORPUSCULAR HGB CONC 32.9 G/DL (33.0-37.0); MEAN CORPUSCULAR VOLUME 84.3 FL (80.0-94.0); MEAN PLATELET VOLUME 8.4 FL (7.4-10.4); PLATELET COUNT 72 /CUMM (130-400); RED BLOOD CELL CT 3.29 /CUMM (4.70-6.10); WHITE BLOOD CELL COUNT 19.6 /CUMM (4.8-10.8)
--- NOTE | 2016-10-25 09:24 | Admission Certification ---
Admission Certification Certification Statement - As attending physician, I certify that at the time of - admission, based on clinical presentation, severity of - symptoms, need for further diagnostic testing and - therapeutic interventions, and risk of adverse outcomes - without in-hospital treatment, in my clinical assessment, - this patient requires an acute hospital stay for a minimum - of two nights or longer. I have also considered psychsocial - factors such as support system, advanced age, financial - issues, cognitive issues, and failed out-patient treatments, - past re-admission history, safety of patient, and lack of - compliance as applicable. Specific rationale supporting this admission is: perforated bladder, sepsis
--- NOTE | 2016-10-25 09:30 | PN- Att Addend ---
Attending Addendum Attending Brief Note Patient reports improved pain. General Appearance: Alert, No Acute Distress Skin: Grossly normal HEENT: PEERLA Neck: Supple, No JVD Cardiovascular: Regular Rate, Normal S1, Normal S2, No Murmurs Lungs: Clear to Auscultation, Normal Air Movement Abdomen: Left groin tenderness Neurological: Normal Speech, Strength at 5/5 X4 Ext, Cranial Nerves 3-12 NL, Reflexes 2+ Extremities: Pedal edema Assessment 71-year-old with history of atrial fibrillation on Coumadin, [place], status post pacemaker, CHF, hypertension, varicose veins, chronic anemia, history of recent renal failure and venous insufficiency presenting with left groin pain after cystoscopy. 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 He now has gram-positive cocci 2 in the blood suggesting likely genitourinary source of bacteremia. Could possibly be enterococcus however MRSA cannot be ruled out. Patient at some time might need surgical intervention for perforated bladder. Kidney function is stable and hyperkalemia. Plan Give 1 dose of vancomycin Continue ceftriaxone Follow blood cultures and urine culture Repeat potassium levels ID consult Urology consult Continue home medication including Lasix Hold Coumadin for supratherapeutic INR Current Medications Sig/Dagoberto Start time Last Medication Dose Route Stop Time Status Admin Atorvastatin Calcium 20 MG 1700 10/25 1700 AC PO Ceftriaxone Sodium 1,000 MG DAILY 10/25 1000 CAN IV Ceftriaxone Sodium 0 .STK-MED ONE 10/24 2108 DC .ROUTE Ceftriaxone Sodium 1,000 MG ONCE ONE 10/24 2044 DC 10/24 IV 10/24 Dextrose 25 GM ONCE ONE 10/24 2114 DC 10/24 IV 10/24 Furosemide 40 MG DAILY 10/25 1000 CAN PO Furosemide 40 MG DAILY 10/25 1000 AC PO Hydralazine HCl 25 MG BID 10/25 1000 AC PO Insulin Aspart 0 TIDAC 10/25 1200 AC SC Insulin Human Regular 10 UNITS ONCE ONE 10/24 2129 DC 10/24 IV 10/24 Insulin Human Regular 10 UNITS STAT STA 10/24 2106 CAN SC 10/25 2107 Isosorbide 30 MG DAILY 10/25 1000 AC Mononitrate PO Metoprolol Tartrate 50 MG BID 10/25 1000 AC PO Multivitamins 1 TAB DAILY 10/25 1000 AC PO Omeprazole 40 MG DAILY AC 10/25 0810 AC PO Sodium Chloride 1,000 ML Q13H 10/25 0900 CAN IV Sodium Chloride 1,000 ML BOLUS ONE 10/24 2114 DC 10/24 IV 10/24 Sodium Polystyrene 60 ML ONCE ONE 10/25 0730 DC Sulfonate PO 10/25 0731 Sodium Polystyrene 0 .STK-MED ONE 10/24 2133 DC Sulfonate .ROUTE Sodium Polystyrene 60 ML ONCE ONE 10/24 2114 DC 10/24 Sulfonate PO 10/25 2115 214 Vancomycin HCl 1,500 MG ONCE ONE 10/25 0915 CAN Sodium Chloride 250 ML IV 10/25 1014 Warfarin Sodium 3 MG DAILY 10/25 1000 CAN PO 10/25 1001 Laboratory Tests 10/25 10/25 0652 0115 Chemistry Sodium (137 - 145 mmol/L) 136 L Potassium (3.5 - 5.1 mmol/L) 5.7 H 5.9 H Chloride (98 - 107 mmol/L) 104 Carbon Dioxide (22 - 30 mmol/L) 22 Anion Gap (5 - 16) 9 BUN (9 - 20 mg/dL) 43 H Creatinine (0.7 - 1.2 mg/dL) 1.5 H Estimated GFR (>60 ml/min) 46 L BUN/Creatinine Ratio (7 - 25 %) 28.7 H Phosphorus (2.5 - 4.5 mg/dL) 4.4 Magnesium (1.6 - 2.3 mg/dL) 1.6 Coagulation PT (9.4 - 12.5 SEC) 33.0 H INR (0.90 - 1.17) 3.18 H Hematology CBC w Diff MAN DIFF ORDERED WBC (4.8 - 10.8 /CUMM) Pending RBC (4.70 - 6.10 /CUMM) Pending Hgb (14.0 - 18.0 G/DL) Pending Hct (42 - 52 %) Pending MCV (80.0 - 94.0 FL) Pending MCH (27.0 - 31.0 PG) Pending RDW (11.5 - 14.5 %) Pending Plt Count (130 - 400 /CUMM) Pending MPV (7.4 - 10.4 FL) Pending Gran % (42.2 - 75.2 %) Pending Lymphocytes % (20.5 - 51.1 %) Pending Monocytes % (1.7 - 9.3 %) Pending Eosinophils % (0 - 5 %) Pending Basophils % (0.0 - 2.0 %) Pending Absolute Granulocytes (1.4 - 6.5 /CUMM) Pending Segmented Neutrophils (42.2 - 75.2 %) Pending Absolute Lymphocytes (1.2 - 3.4 /CUMM) Pending Absolute Monocytes (0.10 - 0.60 /CUMM) Pending Absolute Eosinophils (0.0 - 0.7 /CUMM) Pending Absolute Basophils (0.0 - 0.2 /CUMM) Pending PUBS MCHC (33.0 - 37.0 G/DL) Pending 10/24 210 Urines Urine Color (YEL,AMB,STR) YEL Urine Clarity (CLEAR) CLDY H Urine pH (5.0 - 8.0) 6.0 Ur Specific [place] (1.001 - 1.035) 1.020 Urine Protein (NEG,<30 MG/DL) 100 H Urine Ketones (NEG) NEG Urine Nitrite (NEG) POS H Urine Bilirubin (NEG) NEG Urine Urobilinogen (0.1 - 1.0 EU/dl) 0.2 Ur Leukocyte Esterase (NEG) MOD H Ur Microscopic SEDIMENT EXAMINED Urine RBC (0 - 5 /HPF) >75 H Urine WBC (0 - 2 /HPF) 25-50 H Ur Epithelial Cells (NONE,FEW) RARE Urine Bacteria (NEG/NONE) MOD H Urine Hemoglobin (NEG) LARGE H Urine Glucose (N MG/DL) NEG 10/25 1955 Chemistry Sodium (137 - 145 mmol/L) 129 L Potassium (3.5 - 5.1 mmol/L) 6.2 *H Chloride (98 - 107 mmol/L) 100 Carbon Dioxide (22 - 30 mmol/L) 20 L Anion Gap (5 - 16) 9 BUN (9 - 20 mg/dL) 45 H Creatinine (0.7 - 1.2 mg/dL) 1.6 H Estimated GFR (>60 ml/min) 43 L BUN/Creatinine Ratio (7 - 25 %) 28.1 H Glucose (65 - 99 mg/dL) 183 H Calcium (8.4 - 10.2 mg/dL) 8.1 L Total Bilirubin (0.2 - 1.3 mg/dL) 0.6 AST (17 - 59 U/L) 20 ALT (21 - 72 U/L) 47 Alkaline Phosphatase (< 127 U/L) 130 H Troponin I (<0.11 ng/ml) 0.06 Total Protein (6.3 - 8.2 g/dL) 5.0 L Albumin (3.5 - 5.0 g/dL) 2.0 L Globulin (1.9 - 4.2 gm/dL) 3.0 Albumin/Globulin Ratio (1.1 - 2.2 %) 0.7 L Amylase (30 - 110 U/L) < 30 L Lipase (23 - 300 U/L) 202 Coagulation PT (9.4 - 12.5 SEC) 28.7 H INR (0.90 - 1.17) 2.76 H APTT (25 - 37 SEC) 28 Hematology CBC w Diff MAN DIFF ORDERED WBC (4.8 - 10.8 /CUMM) 19.3 H RBC (4.70 - 6.10 /CUMM) 3.44 L Hgb (14.0 - 18.0 G/DL) 9.9 L Hct (42 - 52 %) 29.3 L MCV (80.0 - 94.0 FL) 85.0 MCH (27.0 - 31.0 PG) 28.8 RDW (11.5 - 14.5 %) 17.1 H Plt Count (130 - 400 /CUMM) 72 L MPV (7.4 - 10.4 FL) 8.2 Gran % (42.2 - 75.2 %) 95.0 H Lymphocytes % (20.5 - 51.1 %) 2.5 L Monocytes % (1.7 - 9.3 %) 2.3 Eosinophils % (0 - 5 %) 0.1 Basophils % (0.0 - 2.0 %) 0.1 Absolute Granulocytes (1.4 - 6.5 /CUMM) 18.3 H Segmented Neutrophils (42.2 - 75.2 %) 97 H Band Neutrophils (0.0 - 5.0 %) 2 Absolute Lymphocytes (1.2 - 3.4 /CUMM) 0.5 L Lymphocytes (20.5 - 51.1 %) 1 L Absolute Monocytes (0.10 - 0.60 /CUMM) 0.4 Absolute Eosinophils (0.0 - 0.7 /CUMM) 0 Absolute Basophils (0.0 - 0.2 /CUMM) 0 Platelet Estimate (ADEQUATE) VERIFIED BY SMEAR Polychromasia 1+ Anisocytosis 1+ Ovalocytes FEW PUBS MCHC (33.0 - 37.0 G/DL) 33.9 Other Body Source Fld Total RBCs Counted (%) 100 Vital Signs Date Time Temp Pulse Resp B/P B/P Pulse O2 O2 Flow FiO2 Mean Ox Delivery Rate 10/25 0146 97.8 103 16 122/68 97 Room Air 10/24 2134 96.5 98 16 118/86 96 Room Air 10/24 2013 Room Air 10/24 194 97.2 90 16 131/88 99 Room Air
[2016-10-25 10:47] VITALS: BP 100/68
--- NOTE | 2016-10-25 11:59 | Cons- Infect Disease ---
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, with skin biopsy suggestive of leukocytoclastic vasculitis, treated with steroids and, for a short period of time, dialysis, with his hospital course complicated by a cellulitis of the right thigh, treated with a one-week course of Unasyn, and symptomatic bradycardia with syncope, requiring a pacemaker, discharged after 3 weeks on steroids with a white blood cell count of 21,000, platelet count of 65, 000 and a creatinine of 2.1, readmitted 2 weeks prior to admission with epistaxis and hemoptysis, not felt to be significant, found to have an Escherichia coli UTI, which was felt to be asymptomatic and not treated, with the development of left groin and thigh pain approximately 1 week prior to admission, status post cystoscopy 4 days prior to admission, apparently for hematuria, with increased left groin and thigh/hip pain since, begun on Bactrim several days prior to admission, presumably for an Escherichia coli urinary tract infection, admitted on October [address] scan of the abdomen and pelvis performed earlier that day revealed extensive emphysema within the bladder wall with extraluminal air also visualized within the lower abdomen and pelvis, anterior and superior to the bladder. On admission he was afebrile. Laboratory data revealed a white blood cell count of 19,000, H&H 10 and 29, platelets 72, 000, BUN/creatinine 45 and 1.6, sodium 129, potassium 6.2, alk phosphatase 130, INR 2.76. Urinalysis greater than 75 RBC/25-50 WBCs. He was given a dose of Ceftriaxone and a Rivera catheter was inserted. He has remained afebrile overnight. He reports pain in the left groin/hip/thigh with movement but is otherwise without complaints. He has had no further hemoptysis or epistaxis. He does report some limitation to taking a deep breath but notes no cough or shortness of breath. He does report recent urgency but has had no frequency or dysuria. He has also developed right elbow erythema and swelling with purulent drainage in the past week. This morning blood cultures 2 were reported positive for gram-positive cocci in clusters. Allergies/Medications Allergies: Coded Allergies: No Known Allergies (09/10/16) Home Med List: Acetaminophen (Acephen) 650 MG SUPP.RECT 1 SUPP OK Q4H PRN PAIN/TEMP>100 ( Reported) Acetaminophen 325 MG TABLET 2 TAB PO Q4H PRN PAIN/TEMP>/100 (Reported) Atorvastatin Calcium 20 MG TABLET 20 MG PO 1700 CHOLESTEROL Bisacodyl 10 MG SUPP.RECT 1 SUP RC PRN CONSTIPATION (Reported) Furosemide 40 MG TABLET 1 TAB PO DAILY WATER RETENTION (Reported) Hydralazine HCl 25 MG TABLET 25 MG PO BID CARDIOMYOPATHY Isosorbide Mononitrate (Isosorbide Mononitrate ER) 30 MG TAB.ER.24H 30 MG PO DAILY CARDIOMYOPATHY Lactobacillus Acidophilus (Acidophilus) 1 EACH CAPSULE 1 CAP PO BID PROBIOTIC (Reported) Magnesium Hydroxide (Milk Of Magnesia) 400 MG/5 ML ORAL.SUSP 30 ML PO DAILY PRN CONSTIPATION (Reported) Metoprolol Tartrate 50 MG TABLET 1 TAB PO BID AFIB (Reported) Multivit-Min/FA/Lycopen/Lutein (Centrum Silver Men Tablet) 300 MCG-600 MCG-300 MCG TABLET 1 TAB PO DAILY SUPPLEMENT (Reported) Na Phos,M-B/Na Phos,Di-Ba (Fleet Enema) 19 GRAM-7 GRAM/118 ML ENEMA 1 E RC DAILY PRN CONSTIPATION (Reported) Omeprazole 20 MG CAPSULE.DR 40 MG PO DAILY AC GI PROPHYLAXIS Prednisone 20 MG TABLET 60 MG PO DAILY VASCULITIS Protein Supplement (Promod) 946 ML LIQUID 30 ML PO BID SUPPLEMENT (Reported) Sennosides/Docusate Sodium (Senna S Tablet) 8.6 MG-50 MG TABLET 2 TAB PO QPM CONSTIPATION (Reported) Sitagliptin Phosphate (Januvia) 50 MG TABLET 1 TAB PO DAILY diabetes Tramadol HCl 50 MG TABLET 1 TAB PO Q8H PRN MODERATE TO SEVERE PAIN (Reported) Warfarin Sodium (Coumadin) 3 MG TABLET 1 TAB PO DAILY BLOOD THINNER (Reported ) Past History Travel History Traveled to [place] past 21 day No Medical History Blood Transfusion Hx: Yes Neurological: NONE EENT: NONE Cardiovascular: AFIB, CAD, hypertension, RUPTURED VARICOSE VEIN Respiratory: NONE Gastrointestinal: HEMMORHOIDS Hepatic: NONE Renal: chronic kidney disease Psychiatric: NONE Endocrine: NONE Blood Disorders: NONE Cancer(s): NONE 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 Acute Rehab Who Do You Live With? child Services at Home: None Primary Language: Indonesian Smoking Status: Never Smoked Functional Ability ADLs Needs Assist: dressing, eating, toileting, bathing. IADLs Needs Assist: shopping, housework, finances, food prep, telephone, transportation, medication admin. Review of Systems Review of Systems All Other Systems: Reviewed and Negative Exam & Diagnostic Data Last 24 Hrs of Vital Signs/I&O Vital Signs Date Time Temp Pulse Resp B/P B/P Pulse O2 O2 Flow FiO2 Mean Ox Delivery Rate 10/25 1118 111 130/68 10/25 1117 111 130/68 10/25 1117 111 130/68 10/25 1047 97.9 110 20 100/68 94 Room Air 10/25 0146 97.8 103 16 122/68 97 Room Air 10/24 2135 96.5 98 16 118/86 96 Room Air 10/24 2013 Room Air 10/24 1945 97.2 90 16 131/88 99 Room Air Intake & Output 10/25 1600 / 0800 10/25 0000 Intake Total 0 1000 Output Total 800 770 Balance -800 230 Intake, IV 1000 Intake, Oral 0 0 Output, Urine 800 770 Patient 205 lb Weight Weight Reported by Patient Measurement Method Physical Exam Other Physical Findings: He is awake and alert in no acute distress. He is afebrile. Skin reveals scattered ecchymoses. HEENT exam poor dentition. Neck is supple with no adenopathy. Chest left upper chest pacemaker site with ecchymosis, with no erythema or tenderness and with incision well healed. Lungs are clear anteriorly. Heart regular rhythm with no murmur. Abdomen is soft, nontender with positive bowel sounds. Back no CVA tenderness. Extremities venous stasis changes both lower extremities; small ulcerations over the anterior aspects of both legs above the ankles, with no surrounding erythema; right elbow erythema with mild induration, minimally tender to palpation and with full range of motion of the joint; left groin/thigh pain with movement. Neuro is without focality. Rivera catheter is in place. Last 24 Hours of Lab Results: Laboratory Tests 10/25 10/25 0652 0115 Chemistry Sodium (137 - 145 mmol/L) 136 L Potassium (3.5 - 5.1 mmol/L) 5.7 H 5.9 H Chloride (98 - 107 mmol/L) 104 Carbon Dioxide (22 - 30 mmol/L) 22 Anion Gap (5 - 16) 9 BUN (9 - 20 mg/dL) 43 H Creatinine (0.7 - 1.2 mg/dL) 1.5 H Estimated GFR (>60 ml/min) 46 L BUN/Creatinine Ratio (7 - 25 %) 28.7 H Phosphorus (2.5 - 4.5 mg/dL) 4.4 Magnesium (1.6 - 2.3 mg/dL) 1.6 Coagulation PT (9.4 - 12.5 SEC) 33.0 H INR (0.90 - 1.17) 3.18 H Hematology CBC w Diff MAN DIFF ORDERED WBC (4.8 - 10.8 /CUMM) 19.6 H RBC (4.70 - 6.10 /CUMM) 3.29 L Hgb (14.0 - 18.0 G/DL) 9.1 L Hct (42 - 52 %) 27.7 L MCV (80.0 - 94.0 FL) 84.3 MCH (27.0 - 31.0 PG) 27.8 RDW (11.5 - 14.5 %) 17.0 H Plt Count (130 - 400 /CUMM) 72 L MPV (7.4 - 10.4 FL) 8.4 Gran % (42.2 - 75.2 %) 93.4 H Lymphocytes % (20.5 - 51.1 %) 2.6 L Monocytes % (1.7 - 9.3 %) 4.0 Eosinophils % (0 - 5 %) 0 Basophils % (0.0 - 2.0 %) 0 L Absolute Granulocytes (1.4 - 6.5 /CUMM) 18.4 H Absolute Lymphocytes (1.2 - 3.4 /CUMM) 0.5 L Absolute Monocytes (0.10 - 0.60 /CUMM) 0.8 H Absolute Eosinophils (0.0 - 0.7 /CUMM) 0 Absolute Basophils (0.0 - 0.2 /CUMM) 0 Platelet Estimate (ADEQUATE) DECREASED Hypochromic-Microcytic 1+ Poikilocytosis 2+ Anisocytosis 1+ PUBS MCHC (33.0 - 37.0 G/DL) 32.9 L 10/25 2103 Urines Urine Color (YEL,AMB,STR) YEL Urine Clarity (CLEAR) CLDY H Urine pH (5.0 - 8.0) 6.0 Ur Specific [place] (1.001 - 1.035) 1.020 Urine Protein (NEG,<30 MG/DL) 100 H Urine Ketones (NEG) NEG Urine Nitrite (NEG) POS H Urine Bilirubin (NEG) NEG Urine Urobilinogen (0.1 - 1.0 EU/dl) 0.2 Ur Leukocyte Esterase (NEG) MOD H Ur Microscopic SEDIMENT EXAMINED Urine RBC (0 - 5 /HPF) >75 H Urine WBC (0 - 2 /HPF) 25-50 H Ur Epithelial Cells (NONE,FEW) RARE Urine Bacteria (NEG/NONE) MOD H Urine Hemoglobin (NEG) LARGE H Urine Glucose (N MG/DL) NEG 10/25 1955 Chemistry Sodium (137 - 145 mmol/L) 129 L Potassium (3.5 - 5.1 mmol/L) 6.2 *H Chloride (98 - 107 mmol/L) 100 Carbon Dioxide (22 - 30 mmol/L) 20 L Anion Gap (5 - 16) 9 BUN (9 - 20 mg/dL) 45 H Creatinine (0.7 - 1.2 mg/dL) 1.6 H Estimated GFR (>60 ml/min) 43 L BUN/Creatinine Ratio (7 - 25 %) 28.1 H Glucose (65 - 99 mg/dL) 183 H Calcium (8.4 - 10.2 mg/dL) 8.1 L Total Bilirubin (0.2 - 1.3 mg/dL) 0.6 AST (17 - 59 U/L) 20 ALT (21 - 72 U/L) 47 Alkaline Phosphatase (< 127 U/L) 130 H Troponin I (<0.11 ng/ml) 0.06 Total Protein (6.3 - 8.2 g/dL) 5.0 L Albumin (3.5 - 5.0 g/dL) 2.0 L Globulin (1.9 - 4.2 gm/dL) 3.0 Albumin/Globulin Ratio (1.1 - 2.2 %) 0.7 L Amylase (30 - 110 U/L) < 30 L Lipase (23 - 300 U/L) 202 Coagulation PT (9.4 - 12.5 SEC) 28.7 H INR (0.90 - 1.17) 2.76 H APTT (25 - 37 SEC) 28 Hematology CBC w Diff MAN DIFF ORDERED WBC (4.8 - 10.8 /CUMM) 19.3 H RBC (4.70 - 6.10 /CUMM) 3.44 L Hgb (14.0 - 18.0 G/DL) 9.9 L Hct (42 - 52 %) 29.3 L MCV (80.0 - 94.0 FL) 85.0 MCH (27.0 - 31.0 PG) 28.8 RDW (11.5 - 14.5 %) 17.1 H Plt Count (130 - 400 /CUMM) 72 L MPV (7.4 - 10.4 FL) 8.2 Gran % (42.2 - 75.2 %) 95.0 H Lymphocytes % (20.5 - 51.1 %) 2.5 L Monocytes % (1.7 - 9.3 %) 2.3 Eosinophils % (0 - 5 %) 0.1 Basophils % (0.0 - 2.0 %) 0.1 Absolute Granulocytes (1.4 - 6.5 /CUMM) 18.3 H Segmented Neutrophils (42.2 - 75.2 %) 97 H Band Neutrophils (0.0 - 5.0 %) 2 Absolute Lymphocytes (1.2 - 3.4 /CUMM) 0.5 L Lymphocytes (20.5 - 51.1 %) 1 L Absolute Monocytes (0.10 - 0.60 /CUMM) 0.4 Absolute Eosinophils (0.0 - 0.7 /CUMM) 0 Absolute Basophils (0.0 - 0.2 /CUMM) 0 Platelet Estimate (ADEQUATE) VERIFIED BY SMEAR Polychromasia 1+ Anisocytosis 1+ Ovalocytes FEW PUBS MCHC (33.0 - 37.0 G/DL) 33.9 Other Body Source Fld Total RBCs Counted (%) 100 Last 24 Hours of Hemal Results: Blood cultures October 24 positive for gram-positive cocci in clusters Urine culture October 24 appears mixed with several organisms isolated Diagnostic Data Recent Imaging Findings: CT scan of the abdomen and pelvis October 24 revealed extensive emphysema within the bladder wall with extraluminal air also visualized within the lower abdomen and pelvis, anterior and superior to the bladder. Assessment/Plan Assessment/Plan Impression: This is a 71-year-old man with a history of atrial fibrillation, diagnosed with a presumed vasculitis 2 months prior to admission after presenting with a petechial rash, thrombocytopenia and renal failure, requiring temporary dialysis , treated with steroids with overall improvement, with his hospital course complicated by bradycardia, requiring a pacemaker, with the development of left groin/thigh and hip pain as well as right elbow inflammation 1 week prior to admission, status post cystoscopy 4 days prior to admission, admitted on October [address] scan, apparently performed to rule out a left hip fracture, revealed extensive emphysema within the bladder and extraluminal air within the lower abdomen and pelvis with blood cultures 2 reported positive today for gram- positive cocci in clusters. The CT findings may be related to the recent cystoscopy and am not convinced they are related to his pain, particular as his pain reportedly preceded the cystoscopy. The source of the positive blood cultures is unclear at this time. Possible sources include the urinary tract, with the possibility of perforation from his recent procedure, the right elbow, with possible olecranon bursitis, and the pacemaker, though the site appears uninflamed. The etiology of his left thigh and hip pain is unclear with the CT nonrevealing, and a spinal process, with radiating pain, may need to be considered, particularly with the positive blood cultures. The blood cultures could represent contaminants, but with 2 sets positive this is less likely. The positive urine culture is of unclear significance, but, as he did report urgency prior to the cystoscopy, it may be reasonable to treat this. His leukocytosis has been persistent and may be secondary to the steroids, but, with positive blood cultures, it may be in part secondary to an infection. He has remained afebrile, but this could be secondary to the steroids. Suggestion: 1. Repeat blood cultures 2 today 2. Echocardiogram 3. Urology evaluation 4. Orthopedic evaluation of the right elbow 5. Consider MRI of the lumbosacral spine if pain persists 6. Follow-up recent cultures 7. Begin Vancomycin 1 g IV every 24 hours pending above 8. Continue Ceftriaxone 1 g IV every 24 hours pending above Consult Acknowledgment - Thank you for your consult request.
--- NOTE | 2016-10-25 14:48 | PN- Wound Care ---
Subjective Subjective: Patient 71-year-old previously seen for right lower extremity venous stasis ulcer was admitted with hyperkalemia and concern for sepsis. He has significant left hip pain which limits his ability to be examined. Objective Vital Signs and I&Os Vital Signs Result Date Time B/P 130/68 10/25 1118 Pulse 111 10/25 1118 Pulse Ox 94 10/25 1047 O2 Delivery Room Air 10/25 1047 Temp 97.9 10/25 1047 Resp 20 10/25 1047 Intake & Output 10/25 0000 10/24 1600 10/24 0800 Intake Total 1000 Output Total 770 Balance 230 Intake, IV 1000 Intake, Oral 0 Output, Urine 770 Patient 205 lb Weight Weight Reported by Patient Measurement Method Exam of the prior right venous ulcer present on admission shows 2 minute pinpoints remaining the rest of the ulcer has healed. Over the left dorsal foot is evidence of a prior blister which is for the most part healed there is a small area approximately 0.8 x 0.5 cm open present on admission. He reportedly has pressure ulcers of his coccyx present on admission these will have to be evaluated in of the time following adequate pain control Impression/Plan Impression/Plan Impression/Plan: 71-year-old with presumed vasculitis renal failure admitted with hyperkalemia and renal failure and suspected sepsis of possible urinary origin. Prior lower extremity ulcers are healing well and have no evidence of infection. These can be cleaned well and covered with Xeroform daily. Should be placed on a low air loss mattress. Once his pain is adequately controlled the pressure ulcers of the coccyx will be examined.
[2016-10-25 15:57] VITALS: BP 130/78
--- NOTE | 2016-10-25 17:14 | Cons- Urology ---
General Information and HPI Consulting Request Date of Consult: 10/25/16 Requested By: ADAN FENTON MD Reason for Consult: gross hematuria and bladder abn on CT Source of Information: patient Exam Limitations: poor historian History of Present Illness: This 71 yo male was seen in my office last week on 10/18/16 for gross hematuria issues. He was told he had an UTI by cystoscopy exam, bleeding was likely from his enlarged prostate as it was bleeding during the cystoscopy evaluation, his urine culture was sent out and he was told to start on po antibiotics. However, speaking with the patient today, it does not seem he started the po antibiotics that were sent into his pharmacy (macrobid 100mg po BID for 7 days). The urine culture grew out E. Coli. He has multiple medical problems including atrial fibrillation on Coumadin, IN, CAD s/p PCI, LBBB s/p pacemaker, hypertension, varicose veins, chronic anemia, thrombocytopenia, acute renal failure, and venous insufficiency who presented to ED with chief complaint of left leg, groin and pain and hematuria status post cystoscopy on 10/20. Allergies/Medications Allergies: Coded Allergies: No Known Allergies (09/10/16) Home Med List: Acetaminophen (Acephen) 650 MG SUPP.RECT 1 SUPP SC Q4H PRN PAIN/TEMP>100 ( Reported) Acetaminophen 325 MG TABLET 2 TAB PO Q4H PRN PAIN/TEMP>/100 (Reported) Atorvastatin Calcium 20 MG TABLET 20 MG PO 1700 CHOLESTEROL Bisacodyl 10 MG SUPP.RECT 1 SUP RC PRN CONSTIPATION (Reported) Furosemide 40 MG TABLET 1 TAB PO DAILY WATER RETENTION (Reported) Hydralazine HCl 25 MG TABLET 25 MG PO BID CARDIOMYOPATHY Isosorbide Mononitrate (Isosorbide Mononitrate ER) 30 MG TAB.ER.24H 30 MG PO DAILY CARDIOMYOPATHY Lactobacillus Acidophilus (Acidophilus) 1 EACH CAPSULE 1 CAP PO BID PROBIOTIC (Reported) Magnesium Hydroxide (Milk Of Magnesia) 400 MG/5 ML ORAL.SUSP 30 ML PO DAILY PRN CONSTIPATION (Reported) Metoprolol Tartrate 50 MG TABLET 1 TAB PO BID AFIB (Reported) Multivit-Min/FA/Lycopen/Lutein (Centrum Silver Men Tablet) 300 MCG-600 MCG-300 MCG TABLET 1 TAB PO DAILY SUPPLEMENT (Reported) Na Phos,M-B/Na Phos,Di-Ba (Fleet Enema) 19 GRAM-7 GRAM/118 ML ENEMA 1 E RC DAILY PRN CONSTIPATION (Reported) Omeprazole 20 MG CAPSULE.DR 40 MG PO DAILY AC GI PROPHYLAXIS Prednisone 20 MG TABLET 60 MG PO DAILY VASCULITIS Protein Supplement (Promod) 946 ML LIQUID 30 ML PO BID SUPPLEMENT (Reported) Sennosides/Docusate Sodium (Senna S Tablet) 8.6 MG-50 MG TABLET 2 TAB PO QPM CONSTIPATION (Reported) Sitagliptin Phosphate (Januvia) 50 MG TABLET 1 TAB PO DAILY diabetes Tramadol HCl 50 MG TABLET 1 TAB PO Q8H PRN MODERATE TO SEVERE PAIN (Reported) Warfarin Sodium (Coumadin) 3 MG TABLET 1 TAB PO DAILY BLOOD THINNER (Reported ) Current Medications: Current Medications Sig/Dagoberto Start time Last Medication Dose Route Stop Time Status Admin Acetaminophen 650 MG Q6P PRN 10/25 1115 AC PO Atorvastatin Calcium 20 MG 1700 10/25 1700 AC 10/25 PO 1621 Ceftriaxone Sodium 1,000 MG Q24H 10/25 1400 AC 10/25 IV 1450 Ceftriaxone Sodium 1,000 MG DAILY 10/25 1000 CAN IV Ceftriaxone Sodium 0 .STK-MED ONE 10/24 2108 DC .ROUTE Ceftriaxone Sodium 1,000 MG ONCE ONE 10/24 2044 DC 10/24 IV 10/24 Dextrose 25 GM ONCE ONE 10/24 2114 DC 10/24 IV 10/25 2115 214 Furosemide 40 MG DAILY 10/25 1000 CAN PO Furosemide 40 MG DAILY 10/25 1000 AC 10/25 PO 1118 Hydralazine HCl 25 MG BID 10/25 1000 AC 10/25 PO 1117 Insulin Aspart 0 TIDAC 10/25 1200 AC SC Insulin Human Regular 10 UNITS ONCE ONE 10/24 2129 DC 10/24 IV 10/24 2130 214 Insulin Human Regular 10 UNITS STAT STA 10/24 2107 CAN SC 10/24 210 Isosorbide 30 MG DAILY 10/25 1000 AC 10/25 Mononitrate PO 1117 Metoprolol Tartrate 50 MG BID 10/25 1000 AC 10/25 PO 1118 Multivitamins 1 TAB DAILY 10/25 1000 AC 10/25 PO 1118 Omeprazole 40 MG DAILY AC 10/25 1513 DC PO Omeprazole 40 MG DAILY AC 10/25 0810 AC 10/25 PO 1118 Patient Medication 1 ED .STK-MED ONE 10/25 1413 DC Teaching ED 10/25 1414 Sodium Chloride 1,000 ML Q13H 10/25 0900 CAN IV Sodium Chloride 1,000 ML BOLUS ONE 10/24 2114 DC / IV 10/24 2214 2125 Sodium Polystyrene 60 ML ONCE ONE 10/25 0730 DC 10/25 Sulfonate PO 10/25 0731 1119 Sodium Polystyrene 0 .STK-MED ONE 10/24 2133 DC Sulfonate .ROUTE Sodium Polystyrene 60 ML ONCE ONE 10/24 2114 DC 10/24 Sulfonate PO 10/25 2115 2142 Tramadol HCl 50 MG Q8P PRN 10/25 1115 AC 10/25 PO 1448 Vancomycin HCl 1,000 MG Q24H 10/25 1400 AC 10/25 Sodium Chloride 250 ML IV 1621 Vancomycin HCl 1,500 MG ONCE ONE 10/25 0915 CAN Sodium Chloride 250 ML IV 10/25 1014 Warfarin Sodium 3 MG DAILY 10/25 1000 CAN PO 10/25 1001 Past History Medical History Blood Transfusion Hx: Yes Neurological: NONE EENT: NONE Cardiovascular: AFIB, CAD, hypertension, RUPTURED VARICOSE VEIN Respiratory: NONE Gastrointestinal: HEMMORHOIDS Hepatic: NONE Renal: chronic kidney disease Psychiatric: NONE Endocrine: NONE Blood Disorders: NONE Cancer(s): NONE GRAPE PRUNER/Reproductive: NONE Surgical History Pertinent Surgical History: cholecystectomy, angioplasty status post pacemaker, pacemaker Family History Relations & Conditions If Any: MOTHER FH: myocardial infarction Psychosocial History Where Do You Live? Acute Rehab Who Do You Live With? child Services at Home: None Primary Language: Barbadian Smoking Status: Never Smoked Illicit Drug Use: denies illicit drug use Living Will? 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 unknown Functional Ability ADLs Needs Assist: dressing, eating, toileting, bathing. IADLs Needs Assist: shopping, housework, finances, food prep, telephone, transportation, medication admin. Employment History Retired? unknown Review of Systems Review of Systems Constitutional: Reports: weakness. EENTM: Reports: no symptoms. Cardiovascular: Reports: no symptoms. Respiratory: Reports: no symptoms. GI: Reports: no symptoms. Genitourinary: Reports: dysuria (from cornell ). Musculoskeletal: Reports: no symptoms. Skin: Reports: no symptoms. Hematologic/Endocrine: Reports: no symptoms. Immunologic/Allergic: Reports: no symptoms. Exam & Diagnostic Data Vital Signs and I&O Vital Signs Date Time Temp Pulse Resp B/P B/P Pulse O2 O2 Flow FiO2 Mean Ox Delivery Rate 10/25 1557 97.8 105 18 130/78 97 10/25 1533 Room Air 10/25 1118 111 130/68 10/25 1117 111 130/68 10/25 1117 111 130/68 10/25 1047 97.9 110 20 100/68 94 Room Air 10/25 0146 97.8 103 16 122/68 97 Room Air 10/24 2135 96.5 98 16 118/86 96 Room Air 10/24 2013 Room Air 10/24 194 97.2 90 16 131/88 99 Room Air Intake & Output 10/25 0810/25 0000 10/24 1600 10/24 0000 Intake Total 0 1000 Output Total 400 800 770 Balance -400 -800 230 Intake, IV 1000 Intake, Oral 0 0 Output, Urine 400 800 770 Patient 92.986 kg Weight Weight Reported by Patient Measurement Method Physical Exam: Pt lying supine in bed resting comfortablly. ABd SOft, ND/NT Cornell in place draining yellow urine. Physical Exam General Appearance: no apparent distress, alert, awake, comfortable Head: atraumatic, normal appearance Eyes: Bilateral: normal appearance. Ears, Nose, Throat: normal ENT inspection Neck: normal inspection Respiratory: no respiratory distress Gastrointestinal: soft, non-tender Rectal: deferred Neurologic/Psych: awake, alert Cranial Nerves: normal hearing, normal speech Skin: intact, normal color, warm/dry Reproductive: Normal male genitalia Last 24 Hours of Labs: Laboratory Tests 10/25 10/25 0652 0115 Chemistry Sodium (137 - 145 mmol/L) 136 L Potassium (3.5 - 5.1 mmol/L) 5.7 H 5.9 H Chloride (98 - 107 mmol/L) 104 Carbon Dioxide (22 - 30 mmol/L) 22 Anion Gap (5 - 16) 9 BUN (9 - 20 mg/dL) 43 H Creatinine (0.7 - 1.2 mg/dL) 1.5 H Estimated GFR (>60 ml/min) 46 L BUN/Creatinine Ratio (7 - 25 %) 28.7 H Phosphorus (2.5 - 4.5 mg/dL) 4.4 Magnesium (1.6 - 2.3 mg/dL) 1.6 Coagulation PT (9.4 - 12.5 SEC) 33.0 H INR (0.90 - 1.17) 3.18 H Hematology CBC w Diff MAN DIFF ORDERED WBC (4.8 - 10.8 /CUMM) 19.6 H RBC (4.70 - 6.10 /CUMM) 3.29 L Hgb (14.0 - 18.0 G/DL) 9.1 L Hct (42 - 52 %) 27.7 L MCV (80.0 - 94.0 FL) 84.3 MCH (27.0 - 31.0 PG) 27.8 RDW (11.5 - 14.5 %) 17.0 H Plt Count (130 - 400 /CUMM) 72 L MPV (7.4 - 10.4 FL) 8.4 Gran % (42.2 - 75.2 %) 93.4 H Lymphocytes % (20.5 - 51.1 %) 2.6 L Monocytes % (1.7 - 9.3 %) 4.0 Eosinophils % (0 - 5 %) 0 Basophils % (0.0 - 2.0 %) 0 L Absolute Granulocytes (1.4 - 6.5 /CUMM) 18.4 H Absolute Lymphocytes (1.2 - 3.4 /CUMM) 0.5 L Absolute Monocytes (0.10 - 0.60 /CUMM) 0.8 H Absolute Eosinophils (0.0 - 0.7 /CUMM) 0 Absolute Basophils (0.0 - 0.2 /CUMM) 0 Platelet Estimate (ADEQUATE) DECREASED Hypochromic-Microcytic 1+ Poikilocytosis 2+ Anisocytosis 1+ PUBS MCHC (33.0 - 37.0 G/DL) 32.9 L 10/24 2104 Urines Urine Color (YEL,AMB,STR) YEL Urine Clarity (CLEAR) CLDY H Urine pH (5.0 - 8.0) 6.0 Ur Specific [place] (1.001 - 1.035) 1.020 Urine Protein (NEG,<30 MG/DL) 100 H Urine Ketones (NEG) NEG Urine Nitrite (NEG) POS H Urine Bilirubin (NEG) NEG Urine Urobilinogen (0.1 - 1.0 EU/dl) 0.2 Ur Leukocyte Esterase (NEG) MOD H Ur Microscopic SEDIMENT EXAMINED Urine RBC (0 - 5 /HPF) >75 H Urine WBC (0 - 2 /HPF) 25-50 H Ur Epithelial Cells (NONE,FEW) RARE Urine Bacteria (NEG/NONE) MOD H Urine Hemoglobin (NEG) LARGE H Urine Glucose (N MG/DL) NEG 10/25 1955 Chemistry Sodium (137 - 145 mmol/L) 129 L Potassium (3.5 - 5.1 mmol/L) 6.2 *H Chloride (98 - 107 mmol/L) 100 Carbon Dioxide (22 - 30 mmol/L) 20 L Anion Gap (5 - 16) 9 BUN (9 - 20 mg/dL) 45 H Creatinine (0.7 - 1.2 mg/dL) 1.6 H Estimated GFR (>60 ml/min) 43 L BUN/Creatinine Ratio (7 - 25 %) 28.1 H Glucose (65 - 99 mg/dL) 183 H Calcium (8.4 - 10.2 mg/dL) 8.1 L Total Bilirubin (0.2 - 1.3 mg/dL) 0.6 AST (17 - 59 U/L) 20 ALT (21 - 72 U/L) 47 Alkaline Phosphatase (< 127 U/L) 130 H Troponin I (<0.11 ng/ml) 0.06 Total Protein (6.3 - 8.2 g/dL) 5.0 L Albumin (3.5 - 5.0 g/dL) 2.0 L Globulin (1.9 - 4.2 gm/dL) 3.0 Albumin/Globulin Ratio (1.1 - 2.2 %) 0.7 L Amylase (30 - 110 U/L) < 30 L Lipase (23 - 300 U/L) 202 Coagulation PT (9.4 - 12.5 SEC) 28.7 H INR (0.90 - 1.17) 2.76 H APTT (25 - 37 SEC) 28 Hematology CBC w Diff MAN DIFF ORDERED WBC (4.8 - 10.8 /CUMM) 19.3 H RBC (4.70 - 6.10 /CUMM) 3.44 L Hgb (14.0 - 18.0 G/DL) 9.9 L Hct (42 - 52 %) 29.3 L MCV (80.0 - 94.0 FL) 85.0 MCH (27.0 - 31.0 PG) 28.8 RDW (11.5 - 14.5 %) 17.1 H Plt Count (130 - 400 /CUMM) 72 L MPV (7.4 - 10.4 FL) 8.2 Gran % (42.2 - 75.2 %) 95.0 H Lymphocytes % (20.5 - 51.1 %) 2.5 L Monocytes % (1.7 - 9.3 %) 2.3 Eosinophils % (0 - 5 %) 0.1 Basophils % (0.0 - 2.0 %) 0.1 Absolute Granulocytes (1.4 - 6.5 /CUMM) 18.3 H Segmented Neutrophils (42.2 - 75.2 %) 97 H Band Neutrophils (0.0 - 5.0 %) 2 Absolute Lymphocytes (1.2 - 3.4 /CUMM) 0.5 L Lymphocytes (20.5 - 51.1 %) 1 L Absolute Monocytes (0.10 - 0.60 /CUMM) 0.4 Absolute Eosinophils (0.0 - 0.7 /CUMM) 0 Absolute Basophils (0.0 - 0.2 /CUMM) 0 Platelet Estimate (ADEQUATE) VERIFIED BY SMEAR Polychromasia 1+ Anisocytosis 1+ Ovalocytes FEW PUBS MCHC (33.0 - 37.0 G/DL) 33.9 Other Body Source Fld Total RBCs Counted (%) 100 Imaging Results: CT scan with air in bladder wall and changes consistent with UTI (emphysematous cystitis) Assessment/Plan Assessment/Plan 71 yo male with multiple medical problems who is not a good historian nor does he follow medical advice consistently. He was told to start po anitbiotics after cystoscopy evaluation last week with Urology but he did not and subsequently developed worsening of his UTI with CT changes. Recommend switching to po Bactrim or cipro when he is discharged. Continue cornell for now as he has BPH with LUT sx. Continue flomax while inpatient. He was supposed to start this as well but he likely did not. Consult Acknowledgment - Thank you for your consult request.
--- NOTE | 2016-10-25 17:30 | NUR ---
WOUND CARE: DR MACARIO MADE AWARE OF NEED TO EVALUATE PT FOR WOUND CARE CONSULT REQUESTED BY TELE STAFF
--- NOTE | 2016-10-25 22:14 | RADIOLOGY REPORT ---
EXAMINATION: XR ELBOW, RIGHT CLINICAL INFORMATION: E/o acute abnormalities, septic arthritis and olecranon bursitis Signs Symptoms: Right elbow inflammation, positive blood cultures, COMPARISON: None TECHNIQUE: Four views of the right elbow. FINDINGS: The bones and soft tissues are normal. No fracture or joint effusion. Alignment is anatomic. Joint spaces are maintained. IMPRESSION: Normal right elbow.
[2016-10-25 23:51] VITALS: BP 130/72
--- NOTE | 2016-10-26 07:17 | PN- Housestaff ---
Subjective Follow-up For: Positive blood cultures Left hip/groin/thigh pain UTI Hyperkalemia Chronic venous ulcers Atrial fibrillation Pressure ulcers of the coccyx Tele-Events Since Last Visit: Atrial fibrillation HR 103-150s Bundle branch block Subjective: No acute events overnight. Patient seen and examined this morning. He appears to be in significant distress secondary to pain in his left hip/thigh/groin. He also endorses pain encircling his left knee. He denies pain at the right elbow. He reports that the bilateral pressure ulcers on his back are very painful during changing. Review of Systems Constitutional: Reports: see HPI. EENTM: Reports: see HPI. Objective Last 24 Hrs of Vital Signs/I&O Vital Signs Date Time Temp Pulse Resp B/P B/P Pulse O2 O2 Flow FiO2 Mean Ox Delivery Rate 10/26 2048 110 122/70 10/26 2048 112 122/70 10/26 1638 97.1 108 20 118/68 96 Room Air 10/26 0916 111 120/70 10/26 0915 111 120/70 10/26 0915 97.1 111 120/70 10/26 0800 97.1 111 20 120/70 96 Room Air 10/26 0655 4.0 10/25 2352 108 130/72 10/25 2351 108 130/72 10/25 2351 97.4 82 20 130/72 96 Room Air Intake & Output 10/26 1600 10/26 0800 10/26 0000 Intake Total 480 840 Output Total 450 750 750 Balance -450 -270 90 Intake, Oral 480 840 Output, Urine 450 750 750 Patient 92.533 kg Weight Physical Exam General Appearance: Alert, Oriented X3, Severe Distress HEENT: Atraumatic, Mucous Membr. moist/pink Neck: Supple Cardiovascular: No Murmurs, Gallops, Rubs, Irregularly Irregular Lungs: Clear to Auscultation Abdomen: Soft, No Tenderness, Positive Bowel Sounds Extremities: Right Elbow with Mild Erythema, Swelling and Tenderness to Touch, Normal ROM, Left Thigh and Hip Tender to Touch, 1+ Pitting Edema on Bilateral Lower Extremities Current Medications: Current Medications Sig/Dagoberto Start time Last Medication Dose Route Stop Time Status Admin Acetaminophen 650 MG .STK-MED ONE 10/26 0652 DC PO 10/26 0653 Acetaminophen 650 MG Q6P PRN 10/25 1115 AC 05/03 PO 1724 Atorvastatin Calcium 20 MG 1700 / 1700 AC 10/26 PO 1711 Bisacodyl 10 MG ONE TIME PRN 10/26 1600 AC MN Cefazolin Sodium 1,000 MG IQ8 10/26 1600 AC 10/26 IV 1711 Ceftriaxone Sodium 1,000 MG Q24H 10/25 1400 DC 05 IV 1450 Diltiazem HCl 90 MG .STK-MED ONE 10/26 1306 DC PO 10/26 1307 Furosemide 40 MG DAILY 10/25 1000 AC 10/26 PO 0916 Hydralazine HCl 25 MG BID 10/25 1000 AC 10/26 PO 2049 Hydromorphone HCl 0.2 MG ONCE ONE 10/26 0800 CAN IV 10/26 0801 Hydromorphone HCl 0.2 MG Q4P PRN 10/26 0800 AC 10/26 IV 0914 Insulin Aspart 0 TIDAC 10/25 1200 AC 10/26 SC 1723 Isosorbide 30 MG DAILY 10/25 1000 AC 10/26 Mononitrate PO 0915 Metoprolol Tartrate 50 MG BID 10/25 1000 AC 10/26 PO 2049 Multivitamins 1 TAB DAILY 10/25 1000 AC 10/26 PO 0916 Omeprazole 40 MG DAILY AC 10/25 0810 AC 10/26 PO 0655 Prednisone 60 MG DAILY 10/26 1540 AC 10/26 PO 1711 Tramadol HCl 50 MG Q8P PRN 10/25 1115 AC 10/26 PO 0958 Vancomycin HCl 1,000 MG Q24H 10/25 1400 DC 10/25 Sodium Chloride 250 ML IV 1621 Last 24 Hrs of Lab/Hemal Results Last 24 Hrs of Labs/Mics: Laboratory Tests 10/26/16 0620: Anion Gap 9, Estimated GFR 40 L, BUN/Creatinine Ratio 22.9, Total Bilirubin 0.5 , Direct Bilirubin 0.3, AST 19, ALT 47, Alkaline Phosphatase 119, Total Protein 4.9 L, Albumin 2.0 L, PT 38.0 H, INR 3.67 H, CBC w Diff MAN DIFF ORDERED, RBC 3.61 L, MCV 84.3, MCH 28.3, RDW 16.6 H, MPV 8.1, Gran % 88.9 H, Lymphocytes % 5.4 L, Monocytes % 5.1, Eosinophils % 0.4, Basophils % 0.2, Absolute Granulocytes 14.2 H, Segmented Neutrophils 82 H, Band Neutrophils 2, Absolute Lymphocytes 0.9 L, Lymphocytes 5 L, Monocytes 9, Absolute Monocytes 0.8 H, Absolute Eosinophils 0.1, Absolute Basophils 0, Metamyelocytes 1, Myelocytes 1 H, Platelet Estimate DECREASED, Hypochromic-Microcytic 1+, Poikilocytosis 2+, Anisocytosis 1+, PUBS MCHC 33.5 BCx (10/24/16): Staph aureus sensitive to oxacillin x2 BCx (10/25/16): Gram positive cocci in clusters x1 Orders ECHO Findings: Poor Echo window. Mildly reduced left ventricular systolic function with mild concentric hypertrophy. No definite vegetations noted but overall study suboptimal. Radiology Findings: XR RIGHT ELBOW: Normal right elbow. 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 #Staph aureus sepsis: BCx x2 from admission growing Staph aureus sensitive to oxacillin. Etiology remains unclear, with potential sources including the urinary tract s/p cystoscopy with post-procedure CT scan revealing extensive emphysema within the bladder concerning for microperforation, though felt to be unlikely per urology, versus emphysematous cystitis, right elbow in view of erythema, swelling and purulent drainage at site for one week prior to admission , however without any drainable fluid collection identifed by orthopedic surgery , pacemaker, albeit no signs of inflammation at the area and no definite vegetations noted on ECHO though limited study, and osteomyelitis in view of severe left hip/thigh/groin pain. Contamination, although initially considered, unlikely as repeat BCx are growing gram positive cocci in clusters in one set. Remains afebrile but with persistent leukocytosis, which could be secondary to steroid therapy. Urine cultures from cystoscopy had grown Escherichia coli but this is felt to be a contaminant per ID. * ID following. Appreciate their recs. * Repeat BCx x2. * MRI of the lumbosacral spine and pelvis ordered to evaluate for osteomyelitis. * Discontinue vancomycin and ceftriaxone. * Start cefazolin 1 g IV Q8H. #Atrial fibrillation: Supratherapeutic INR of 3.67 today. Remains tachycardic. * Continue telemetry. * Consider cardiology consult if persistently tachcyardic. * Hold warfarin. * Monitor INR and resume warfarin once INR is no longer supratherapeutic. * Continue [id number] metoprolol 50 mg PO BID. #Hyperkalemia: K improved to 5.3 today. * Continue to monitor K. #Chronic venous ulcers: Healing with no evidence of infection. * Management per wound care team. * Clean and cover with Xeroform daily. #Right elbow olecranon bursitis: Mild erythema, swelling and tenderness at right elbow with full range of motion. XR of right elbow normal. Douglas to represent olecranon bursitis by orthopedic surgery. No drainable fluid collection identified. * If elbow fluid reaccumulates, contact orthopedic surgery for drainage. * Patient given elbow pad as he uses his elbows for weight-bearing. 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 #Pressure ulcers: Clean stage III pressure ulcer measuring approximately 2 x 1 cm on left buttock and stage III pressure ulcer measuring approximately 1.3 x 0.7 cm with red and yellow fill without erythema or exposed bone. Pressure ulcers present on admission. * Management per wound care team. * Place patient on a low air loss mattress. * Pressure ulcers of the coccyx to be examined by wound care once adequate pain control is achieved. #Non-insulin dependent T2DM: Takes Januvia 50 mg PO daily. * Accu-checks and low-dose sliding scale Novolog TIDAC. #HFrEF: ECHO this admission with LVEF estimated at 40-45%. * Continue [id number] Lasix 40 mg PO daily. * Monitor I/Os and daily weights. Diet: Consistent Carbohydrate 2 with 2 g Na and 2 g K Restriction DVT PPx: Warfarin and ALPs CODE: FULL Problem List: 1. Staphylococcus aureus sepsis 2. Non-insulin dependent type 2 diabetes mellitus 3. Venous stasis ulcers of both lower extremities 4. Pressure ulcer of coccygeal region 5. Hyperkalemia 6. Emphysematous cystitis 7. Olecranon bursitis, right elbow 8. HFrEF (heart failure with reduced ejection fraction) 9. Atrial fibrillation 10. Thrombocytopenia 11. Stage III pressure ulcer of buttock Pain Ratin Pain Location: Left hip/thigh/groin Pain Goal: Remain pain free Pain Plan: Dilaudid 0.2 mg IV Q4H PRN for severe pain (scale 7-10) Tramadol 50 mg PO Q8H PRN for moderate pain (scale 4-6) Tylenol 650 mg PO Q6H PRN for mild pain (scale 1-3) Tomorrow's Labs & Rationales: CBC to monitor WBC count in the setting of leukocytosis BMP to monitor lytes and kidney function in the setting of CKD INR to monitor supratherapeutic INR
[2016-10-26 08:00] VITALS: BP 120/70
[2016-10-26 08:00] LABS: ABSOLUTE BASOPHIL COUNT 0 /CUMM (0.0-0.2); ABSOLUTE EOSINOPHIL COUNT 0.1 /CUMM (0.0-0.7); ABSOLUTE GRANULOCYTE CT 14.2 /CUMM (1.4-6.5); ABSOLUTE LYMPH COUNT 0.9 /CUMM (1.2-3.4); ABSOLUTE MONOCYTE COUNT 0.8 /CUMM (0.10-0.60); BASOPHIL % 0.2 % (0.0-2.0); EOSINOPHIL % 0.4 % (0-5); GRANULOCYTE % 88.9 % (42.2-75.2); HEMATOCRIT 30.5 % (42-52); MEAN CORPUSCULAR HGB 28.3 PG (27.0-31.0); MEAN CORPUSCULAR HGB CONC 33.5 G/DL (33.0-37.0); MEAN CORPUSCULAR VOLUME 84.3 FL (80.0-94.0); MEAN PLATELET VOLUME 8.1 FL (7.4-10.4); PLATELET COUNT 73 /CUMM (130-400); RBC DISTRIBUTION WIDTH 16.6 % (11.5-14.5); RED BLOOD CELL CT 3.61 /CUMM (4.70-6.10)
--- NOTE | 2016-10-26 09:33 | PN- Att Addend ---
Attending Addendum Attending Brief Note Patient reports extreme pain left hip. General Appearance: Alert, No Acute Distress Skin: Grossly normal HEENT: PEERLA Neck: Supple, No JVD Cardiovascular: Regular Rate, Normal S1, Normal S2, No Murmurs Lungs: Clear to Auscultation, Normal Air Movement Abdomen: Left thigh tenderness Neurological: Normal Speech, Strength at 5/5 X4 Ext, Cranial Nerves 3-12 NL, Reflexes 2+ Extremities: Pedal edema Assessment 71-year-old with history of atrial fibrillation on Coumadin, [place], status post pacemaker, CHF, hypertension, varicose veins, chronic anemia, history of recent renal failure and venous insufficiency presenting with left groin pain after cystoscopy. 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 Staph aureus in blood. Possible sources right olecranon bursitis of the elbow versus discitis vs others. Urology considers air in subcutaneous tissue likely post procedure with microperforation of the bladder that does not need any intervention at this time. Kidney function is stable. Plan Continue vancomycin MRI lumbar sacral spine Orthopedic evaluation for right olecranon bursa aspiration Follow blood cultures Continue home medication including Lasix Hold Coumadin for supratherapeutic INR Continue other medications Current Medications Sig/Dagoberto Start time Last Medication Dose Route Stop Time Status Admin Acetaminophen 650 MG Q6P PRN 10/25 1115 AC 10/26 PO 0655 Atorvastatin Calcium 20 MG 1700 / 1700 AC 10/25 PO 1621 Ceftriaxone Sodium 1,000 MG Q24H 10/25 1400 AC 10/25 IV 1450 Furosemide 40 MG DAILY 10/25 1000 AC 10/26 PO 0916 Hydralazine HCl 25 MG BID 10/25 1000 AC 10/26 PO 0915 Hydromorphone HCl 0.2 MG ONCE ONE 10/26 0800 CAN IV 10/26 0801 Hydromorphone HCl 0.2 MG Q4P PRN 10/26 0800 AC 10/26 IV 0914 Hydromorphone HCl 0.2 MG ONCE ONE 10/25 1900 DC / IV 10/25 1901 2056 Insulin Aspart 0 TIDAC 10/25 1200 AC 10/25 SC 1828 Isosorbide 30 MG DAILY 10/25 1000 AC 10/26 Mononitrate PO 0915 Metoprolol Tartrate 50 MG BID 10/25 1000 AC 10/26 PO 0916 Multivitamins 1 TAB DAILY 10/25 1000 AC 10/26 PO 0916 Omeprazole 40 MG DAILY AC 10/25 1513 DC PO Omeprazole 40 MG DAILY AC 10/25 0810 AC 10/26 PO 0655 Patient Medication 1 ED .STK-MED ONE 10/25 1413 DC Teaching ED 10/25 1414 Tramadol HCl 50 MG Q8P PRN 10/25 1115 AC 10/25 PO 1448 Vancomycin HCl 1,000 MG Q24H 10/25 1400 AC 10/25 Sodium Chloride 250 ML IV 1621 Laboratory Tests 10/26 10/25 0620 1812 Chemistry Sodium (137 - 145 mmol/L) 136 L Potassium (3.5 - 5.1 mmol/L) 5.3 H 5.1 Chloride (98 - 107 mmol/L) 103 Carbon Dioxide (22 - 30 mmol/L) 23 Anion Gap (5 - 16) 9 BUN (9 - 20 mg/dL) 39 H Creatinine (0.7 - 1.2 mg/dL) 1.7 H Estimated GFR (>60 ml/min) 40 L BUN/Creatinine Ratio (7 - 25 %) 22.9 Total Bilirubin (0.2 - 1.3 mg/dL) 0.5 Direct Bilirubin (< 0.4 mg/dL) 0.3 AST (17 - 59 U/L) 19 ALT (21 - 72 U/L) 47 Alkaline Phosphatase (< 127 U/L) 119 Total Protein (6.3 - 8.2 g/dL) 4.9 L Albumin (3.5 - 5.0 g/dL) 2.0 L Coagulation PT (9.4 - 12.5 SEC) 38.0 H INR (0.90 - 1.17) 3.67 H Hematology CBC w Diff MAN DIFF ORDERED WBC (4.8 - 10.8 /CUMM) 16.0 H RBC (4.70 - 6.10 /CUMM) 3.61 L Hgb (14.0 - 18.0 G/DL) 10.2 L Hct (42 - 52 %) 30.5 L MCV (80.0 - 94.0 FL) 84.3 MCH (27.0 - 31.0 PG) 28.3 RDW (11.5 - 14.5 %) 16.6 H Plt Count (130 - 400 /CUMM) 73 L MPV (7.4 - 10.4 FL) 8.1 Gran % (42.2 - 75.2 %) 88.9 H Lymphocytes % (20.5 - 51.1 %) 5.4 L Monocytes % (1.7 - 9.3 %) 5.1 Eosinophils % (0 - 5 %) 0.4 Basophils % (0.0 - 2.0 %) 0.2 Absolute Granulocytes (1.4 - 6.5 /CUMM) 14.2 H Segmented Neutrophils (42.2 - 75.2 %) 82 H Band Neutrophils (0.0 - 5.0 %) 2 Absolute Lymphocytes (1.2 - 3.4 /CUMM) 0.9 L Lymphocytes (20.5 - 51.1 %) 5 L Monocytes (1.7 - 9.3 %) 9 Absolute Monocytes (0.10 - 0.60 /CUMM) 0.8 H Absolute Eosinophils (0.0 - 0.7 /CUMM) 0.1 Absolute Basophils (0.0 - 0.2 /CUMM) 0 Metamyelocytes (0.0 - 1.0 %) 1 Myelocytes (0 - 0 %) 1 H Platelet Estimate (ADEQUATE) DECREASED Hypochromic-Microcytic 1+ Poikilocytosis 2+ Anisocytosis 1+ PUBS MCHC (33.0 - 37.0 G/DL) 33.5 Vital Signs Date Time Temp Pulse Resp B/P B/P Pulse O2 O2 Flow FiO2 Mean Ox Delivery Rate 10/26 0916 111 120/70 05/03 0915 111 120/70 05/03 0915 97.1 111 120/70 05/03 0800 97.1 111 20 120/70 96 Room Air 05/03 0655 4.0 05/02 2352 108 130/72 05/02 2351 108 130/72 05/02 2351 97.4 82 20 130/72 96 Room Air 05/02 1557 97.8 105 18 130/78 97 05/02 1533 Room Air 05/02 1118 111 130/68 05/02 1117 111 130/68 05/02 1117 111 130/68 05/02 1047 97.9 110 20 100/68 94 Room Air
--- NOTE | 2016-10-26 10:16 | PN- Wound Care ---
Subjective Subjective: Premedicated so as to allow evaluation of bilateral buttock ulcers present on admission Objective Vital Signs and I&Os Vital Signs Result Date Time B/P 120/70 10/26 0816 Pulse 111 10/26 0816 Temp 97.1 10/26 0915 Pulse Ox 96 10/26 0800 O2 Delivery Room Air 10/26 0800 Resp 20 10/26 0800 Intake & Output 10/26 0000 10/25 1600 10/25 0800 Intake Total 840 0 Output Total 750 400 800 Balance 90 -400 -800 Intake, Oral 840 0 Output, Urine 750 400 800 Exam of the right buttock shows there to be a clean stage III pressure ulcer measuring approximately 2 x 1 cm over the left buttock is a stage III pressure ulcer measuring approximately 1.3 x 0.7 cm with red and yellow fill is no undermining sinus tracking periwound erythema or exposed bone. Lower extremity ulcers are unchanged. 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 Prior lower extremity ulcers are healing well and have no evidence of infection. These can be cleaned well and covered with Xeroform daily. Should be placed on a low air loss mattress. Once his pain is adequately controlled the pressure ulcers of the coccyx will be examined. Bilateral buttock ulcers present on admission. Patient is on a low air loss mattress but should be offloaded to the extent possible. Continue do a term changed every 2-3 days as needed
--- NOTE | 2016-10-26 12:03 | Cons- Orthopedic ---
General Information and HPI Consulting Request Date of Consult: 10/26/16 [facility]ed By[facility] Reason for Consult: right elbow redness History of Present Illness: patient a 71 year male with vasculitis issues in his lower extremities along with bladder issues. has had a positive blood culture and some redness over the right elbow. patient states minimal pain right elbow and retains full painfree ROM. Allergies/Medications Allergies: Coded Allergies: No Known Allergies (09/10/16) Home Med List: Acetaminophen (Acephen) 650 MG SUPP.RECT 1 SUPP DE Q4H PRN PAIN/TEMP>100 ( Reported) Acetaminophen 325 MG TABLET 2 TAB PO Q4H PRN PAIN/TEMP>/100 (Reported) Atorvastatin Calcium 20 MG TABLET 20 MG PO 1700 CHOLESTEROL Bisacodyl 10 MG SUPP.RECT 1 SUP RC PRN CONSTIPATION (Reported) Furosemide 40 MG TABLET 1 TAB PO DAILY WATER RETENTION (Reported) Hydralazine HCl 25 MG TABLET 25 MG PO BID CARDIOMYOPATHY Isosorbide Mononitrate (Isosorbide Mononitrate ER) 30 MG TAB.ER.24H 30 MG PO DAILY CARDIOMYOPATHY Lactobacillus Acidophilus (Acidophilus) 1 EACH CAPSULE 1 CAP PO BID PROBIOTIC (Reported) Magnesium Hydroxide (Milk Of Magnesia) 400 MG/5 ML ORAL.SUSP 30 ML PO DAILY PRN CONSTIPATION (Reported) Metoprolol Tartrate 50 MG TABLET 1 TAB PO BID AFIB (Reported) Multivit-Min/FA/Lycopen/Lutein (Centrum Silver Men Tablet) 300 MCG-600 MCG-300 MCG TABLET 1 TAB PO DAILY SUPPLEMENT (Reported) Na Phos,M-B/Na Phos,Di-Ba (Fleet Enema) 19 GRAM-7 GRAM/118 ML ENEMA 1 E RC DAILY PRN CONSTIPATION (Reported) Omeprazole 20 MG CAPSULE.DR 40 MG PO DAILY AC GI PROPHYLAXIS Prednisone 20 MG TABLET 60 MG PO DAILY VASCULITIS Protein Supplement (Promod) 946 ML LIQUID 30 ML PO BID SUPPLEMENT (Reported) Sennosides/Docusate Sodium (Senna S Tablet) 8.6 MG-50 MG TABLET 2 TAB PO QPM CONSTIPATION (Reported) Sitagliptin Phosphate (Januvia) 50 MG TABLET 1 TAB PO DAILY diabetes Tramadol HCl 50 MG TABLET 1 TAB PO Q8H PRN MODERATE TO SEVERE PAIN (Reported) Warfarin Sodium (Coumadin) 3 MG TABLET 1 TAB PO DAILY BLOOD THINNER (Reported ) Past History Medical History Blood Transfusion Hx: Yes Neurological: NONE EENT: NONE Cardiovascular: AFIB, CAD, hypertension, RUPTURED VARICOSE VEIN Respiratory: NONE Gastrointestinal: HEMMORHOIDS Hepatic: NONE Renal: chronic kidney disease Psychiatric: NONE Endocrine: NONE Blood Disorders: NONE Cancer(s): 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 Acute Rehab Who Do You Live With? child Services at Home: None Primary Language: Japanese Smoking Status: Never Smoked Illicit Drug Use: denies illicit drug use Living Will? 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 IADLs Needs Assist: shopping, housework, finances, food prep, telephone, transportation, medication admin. Employment History Retired? unknown Exam & Diagnostic Data Vital Signs and I&O Vital Signs Date Time Temp Pulse Resp B/P B/P Pulse O2 O2 Flow FiO2 Mean Ox Delivery Rate 10/26 0916 111 120/70 10/26 0915 111 120/70 / 0915 97.1 111 120/70 / 0800 97.1 111 20 120/70 96 Room Air / 0655 4.0 / 2352 108 130/72 / 2351 108 130/72 / 2351 97.4 82 20 130/72 96 Room Air / 1557 97.8 105 18 130/78 97 /02 1533 Room Air Intake & Output 10/26 1600 10/26 0800 10/26 0000 10/25 1600 / 0800 / 0000 Intake Total 480 840 0 1000 Output Total 750 750 400 800 770 Balance -270 90 -400 -800 230 Intake, IV 1000 Intake, Oral 480 840 0 0 Output, Urine 750 750 400 800 770 Patient 205 lb Weight Weight Reported by Patient Measurement Method Physical Exam General Appearance: alert, awake, comfortable Extremities: inflammation Skin: intact (erythema right elbow) Other Physical Findings: patient has some erythema right elbow no collection today full ROM and no pain with ROM neurovascularly intact. Assessment/Plan Assessment/Plan patient has right elbow olecranon bursitis no fluid to drain today plan continue his antibiotics if elbow fluid reaccumulates than I would drain . he needs an elbow pad with leg issues uses his elbows to weight bear. Consult Acknowledgment - Thank you for your consult request. Attending MD Review Statement Attending Statement Attending MD Statement: examined this patient
--- NOTE | 2016-10-26 13:20 | PN- Infect Dx ---
Subjective Subjective: Afebrile. He reports pain in the left groin and lateral thigh with movement. Objective Last 24 Hrs of Vital Signs/I&O Vital Signs Date Time Temp Pulse Resp B/P B/P Pulse O2 O2 Flow FiO2 Mean Ox Delivery Rate 10/26 0916 111 120/70 10/26 0915 111 120/70 10/26 0915 97.1 111 120/70 / 0800 97.1 111 20 120/70 96 Room Air 10/26 0655 4.0 10/25 2352 108 130/72 10/25 2351 108 130/72 10/25 2351 97.4 82 20 130/72 96 Room Air 10/25 1557 97.8 105 18 130/78 97 10/25 1533 Room Air Intake & Output 10/26 1600 10/26 0800 10/26 0000 Intake Total 480 840 Output Total 750 750 Balance -270 90 Intake, Oral 480 840 Output, Urine 750 750 Physical Exam Other Physical Findings: He appears comfortable in no acute distress Lungs are clear Heart regular rhythm with no murmur Extremities right elbow erythema localized around the bursa, with mild tenderness and swelling, with normal range of motion; left thigh and hip pain with movement; 1+ edema both lower extremities to the thighs Rivera catheter remains in place Results Last 24 Hours of Lab Results: Laboratory Tests 10/26 10/25 0620 1812 Chemistry Sodium (137 - 145 mmol/L) 136 L Potassium (3.5 - 5.1 mmol/L) 5.3 H 5.1 Chloride (98 - 107 mmol/L) 103 Carbon Dioxide (22 - 30 mmol/L) 23 Anion Gap (5 - 16) 9 BUN (9 - 20 mg/dL) 39 H Creatinine (0.7 - 1.2 mg/dL) 1.7 H Estimated GFR (>60 ml/min) 40 L BUN/Creatinine Ratio (7 - 25 %) 22.9 Total Bilirubin (0.2 - 1.3 mg/dL) 0.5 Direct Bilirubin (< 0.4 mg/dL) 0.3 AST (17 - 59 U/L) 19 ALT (21 - 72 U/L) 47 Alkaline Phosphatase (< 127 U/L) 119 Total Protein (6.3 - 8.2 g/dL) 4.9 L Albumin (3.5 - 5.0 g/dL) 2.0 L Coagulation PT (9.4 - 12.5 SEC) 38.0 H INR (0.90 - 1.17) 3.67 H Hematology CBC w Diff MAN DIFF ORDERED WBC (4.8 - 10.8 /CUMM) 16.0 H RBC (4.70 - 6.10 /CUMM) 3.61 L Hgb (14.0 - 18.0 G/DL) 10.2 L Hct (42 - 52 %) 30.5 L MCV (80.0 - 94.0 FL) 84.3 MCH (27.0 - 31.0 PG) 28.3 RDW (11.5 - 14.5 %) 16.6 H Plt Count (130 - 400 /CUMM) 73 L MPV (7.4 - 10.4 FL) 8.1 Gran % (42.2 - 75.2 %) 88.9 H Lymphocytes % (20.5 - 51.1 %) 5.4 L Monocytes % (1.7 - 9.3 %) 5.1 Eosinophils % (0 - 5 %) 0.4 Basophils % (0.0 - 2.0 %) 0.2 Absolute Granulocytes (1.4 - 6.5 /CUMM) 14.2 H Segmented Neutrophils (42.2 - 75.2 %) 82 H Band Neutrophils (0.0 - 5.0 %) 2 Absolute Lymphocytes (1.2 - 3.4 /CUMM) 0.9 L Lymphocytes (20.5 - 51.1 %) 5 L Monocytes (1.7 - 9.3 %) 9 Absolute Monocytes (0.10 - 0.60 /CUMM) 0.8 H Absolute Eosinophils (0.0 - 0.7 /CUMM) 0.1 Absolute Basophils (0.0 - 0.2 /CUMM) 0 Metamyelocytes (0.0 - 1.0 %) 1 Myelocytes (0 - 0 %) 1 H Platelet Estimate (ADEQUATE) DECREASED Hypochromic-Microcytic 1+ Poikilocytosis 2+ Anisocytosis 1+ PUBS MCHC (33.0 - 37.0 G/DL) 33.5 Last 24 Hours of Hemal Results: Blood cultures October 24 positive for Staph aureus sensitive to Oxacillin Blood cultures October 25 negative so far Urine culture October 24 multiple colony types consistent with contamination Recent Imaging Studies: X-ray of the right elbow May 2 negative Assessment/Plan Impression: Staph aureus sepsis with possible sources including the right olecranon bursa, with no drainable process felt to be present by Ortho, the pacemaker, though there is no inflammation at the site, the left hip/thigh, given his severe pain, though the CT scan did not demonstrate any focus of infection, and the urinary tract, status post cystoscopy with 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 His previous urine culture did grow Proteus and, given the CT findings, this organism can be covered. He is currently on Vancomycin and Ceftazidime, but, given the culture results, his antibiotics can be adjusted. Suggestion: 1. Echocardiogram 2. Would pursue MRI of the lumbosacral spine and pelvis 3. Discontinue Vancomycin and Ceftriaxone 4. Begin Cefazolin 1 g IV every 8 hours
[2016-10-26 16:38] VITALS: BP 118/68
--- NOTE | 2016-10-26 21:24 | ECHOCARDIOGRAM REPORT ---
AMELIA VALVERDE Age: 71 : 1945 Gender: M Exam Date: 10/26/2016 19:45 Exam Location: [address] Ht (in): 70 Wt (lb): 204 BSA: 2.16 BP: 120 / 70 Ordering Physician: DINESH LUEVANO MD Referring Physician: Gaudencio Amezcua MD Technologist: Mariella Iniguez [facility] Room Number: [id number] Indications: INFECTIVE ENDOCARDITIS Rhythm: Technical Quality: FINDINGS Left Ventricle Left ventricle not well visualized. Left ventricular wall thickness mildly increased. Mildly abnormal left ventricular ejection fraction estimated at 40-45%. Hypokinetic inferior wall. Right Ventricle Normal right ventricular size and function. Right Atrium Normal right atrial size. Left Atrium Moderate left atrial dilatation. Mitral Valve Mild mitral annular calcification. Mild mitral regurgitation. Aortic Valve Aortic valve not well visualized, grossly normal. Diffuse thickening (sclerosis) of the aortic valve cusps without reduced excursion. Mild aortic regurgitation. Tricuspid Valve Tricuspid valve is normal in structure and function. Mild tricuspid regurgitation. Right ventricular systolic pressure estimated to be at upper limits of normal at 36 mmHg. Pulmonic Valve Pulmonic valve not well visualized, grossly normal. Pericardium No pericardial effusion. Great Vessels Normal size aortic root. CONCLUSIONS Poor Echo window. Mildly reduced left ventricular systolic function with mild concentric hypertrophy.No definite vegetations noted but overall study suboptimal. Gaudencio Amezcua M.D. (Electronically Signed) Final Date: 26 Oct 2016 21:24 MEASUREMENTS (Male / Female) Normal Values 2D ECHO LV Diastolic Diameter PLAX 5.0 cm 4.2 - 5.9 / 3.9 - 5.3 cm LV Systolic Diameter PLAX 3.9 cm 2.1 - 4.0 cm LV Fractional Shortening PLAX 22.0 % 25 - 46 % LV Ejection Fraction 2D Teich 44.3 % IVS Diastolic Thickness 1.4 cm LVPW Diastolic Thickness 1.3 cm LV Relative Wall Thickness 0.5 RV Internal Dim ED PLAX 3.6 cm 1.9 - 3.8 cm LVOT Diameter 2.5 cm Aortic Root Diameter 3.9 cm LA Systolic Diameter LX 4.7 cm 3.0 - 4.0 / 2.7 - 3.8 cm LV Diastolic Length 4C 7.9 cm 6.9 - 10.3 cm LV Diastolic Area 4C 30.2 cm LV Diastolic Volume MOD 4C 95.0 cm LV Ejection Fraction MOD 4C 34.7 % LV Stroke Volume MOD 4C 33.0 cm LV Systolic Length 4C 7.8 cm LV Systolic Area 4C 24.1 cm LV Systolic Volume MOD 4C 62.0 cm LV Diastolic Volume 4C AL 97.6 cm 85 - 139 / 69 - 109 cm LV Systolic Volume 4C AL 63.2 cm LV Ejection Fraction 4C AL 35.3 % LV Stroke Volume 4C AL 34.4 cm LA Volume 102.0 cm 18 - 58 / 22 - 52 cm Ascending Aorta Diameter 3.2 cm DOPPLER LVOT Peak Velocity 88.7 cm/s LVOT Peak Gradient 3.1 mmHg LVOT Mean Velocity 63.0 cm/s LVOT Mean Gradient 2.0 mmHg LVOT Velocity Time Integral 15.8 cm LVOT Stroke Volume 77.6 cm MV Peak Velocity 113.0 cm/s MV Peak Gradient 5.1 mmHg MV Mean Velocity 67.5 cm/s MV Mean Gradient 2.0 mmHg Mitral E Point Velocity 114.0 cm/s MV PHT Velocity 116.0 cm/s MV Deceleration [place] 337.0 cm/s MV Pressure Half Time 103.3 ms MV Area PHT 2.1 cm MV Deceleration Time 201.0 ms TR Peak Velocity 255.0 cm/s TR Peak Gradient 26.0 mmHg Right Atrial Pressure 10.0 mmHg Pulmonary Artery Systolic Pressu 36.0 mmHg Right Ventricular Systolic Press 36.0 mmHg PV Peak Velocity 112.0 cm/s PV Peak Gradient 5.0 mmHg PV Mean Velocity 70.0 cm/s PV Mean Gradient 2.0 mmHg PV Velocity Time Integral 15.8 cm LV E' Lateral Velocity 4.7 cm/s Mitral E to LV E' Lateral Ratio 24.4 LV E' Septal Velocity 3.9 cm/s Mitral E to LV E' Septal Ratio 29.2
[2016-10-26 23:47] VITALS: BP 110/70
[2016-10-27 06:08] LABS: ABSOLUTE BASOPHIL COUNT 0 /CUMM (0.0-0.2); ABSOLUTE EOSINOPHIL COUNT 0 /CUMM (0.0-0.7); ABSOLUTE LYMPH COUNT 0.7 /CUMM (1.2-3.4); ABSOLUTE MONOCYTE COUNT 0.4 /CUMM (0.10-0.60); BASOPHIL % 0 % (0.0-2.0); EOSINOPHIL % 0.1 % (0-5); GRANULOCYTE % 93.9 % (42.2-75.2); HEMATOCRIT 25.8 % (42-52); MEAN CORPUSCULAR HGB 28.3 PG (27.0-31.0); MEAN CORPUSCULAR HGB CONC 33.6 G/DL (33.0-37.0); MEAN CORPUSCULAR VOLUME 84.2 FL (80.0-94.0); MEAN PLATELET VOLUME 8.3 FL (7.4-10.4); PLATELET COUNT 66 /CUMM (130-400); RBC DISTRIBUTION WIDTH 16.8 % (11.5-14.5); RED BLOOD CELL CT 3.07 /CUMM (4.70-6.10); WHITE BLOOD CELL COUNT 18.1 /CUMM (4.8-10.8)
[2016-10-27 06:09] LABS: PT 30.4 SEC (9.4-12.5)
--- NOTE | 2016-10-27 07:22 | PN- Housestaff ---
Subjective Follow-up For: Staph aureus sepsis Atrial fibrillation Hyperkalemia Right elbow olecranon bursitis Tele-Events Since Last Visit: Atrial fibrillation HR 81-109 BBB Bradycardia to 42 at 5 AM Subjective: No acute events overnight. Patient seen and examined this morning. He continues to have pain in his left thigh region with movement but it is significantly improved since yesterday. Ultrasound of the chest was performed today which revealed complicated fluid collection in the soft tissues lateral to the pacer lead, concerning for infection. Aspiration of the fluid under US-guidance revealed pus, consistent with infection of the pacemaker site. Dr. Navarrete was made aware and cefazolin was continued according to the his recommendations. Attempt was made to contact Dr. Coombs who had placed the pacemaker on 08/30/16 but he was no longer in the hospital. Dr. Perez, covering for patient's roll up guider operator Dr. Amezcua was contacted, who stated that there is no indication for the urgent removal of pacemaker since it was placed six weeks ago but that Dr. Coombs should be contacted immediately in the morning for its removal. Patient was kept NPO overnight in anticipation for pacemaker removal in the AM. He was administered 5 mg of SQ vitamin K to reverse INR. Review of Systems Constitutional: Reports: see HPI. Objective Last 24 Hrs of Vital Signs/I&O Vital Signs Date Time Temp Pulse Resp B/P B/P Pulse O2 O2 Flow FiO2 Mean Ox Delivery Rate 10/27 1750 110/66 / 1540 97.6 93 18 110/66 97 /04 1422 Room Air 10/27 0927 110/70 10/27 0927 110/70 10/27 0927 110/70 10/27 0817 97.7 19 18 108/74 98 Room Air 10/26 2347 98.5 110 20 110/70 94 Room Air 10/26 2049 110 122/70 10/26 2049 112 122/70 Intake & Output 10/27 1600 10/27 0800 10/27 0000 Intake Total 760 110 420 Output Total 550 800 850 Balance 210 -690 -430 Intake, IV 20 Intake, Oral 760 110 400 Number 0 Bowel Movements Output, Urine 550 800 850 Physical Exam General Appearance: Alert, Oriented X3, No Acute Distress HEENT: Atraumatic, Mucous Membr. moist/pink Neck: Supple Cardiovascular: No Murmurs, Gallops, Rubs, Irregularly Irregular Lungs: Clear to Auscultation Abdomen: Soft, No Tenderness, Positive Bowel Sounds Extremities: Tenderness to Palpation at Left Hip and Thigh, Most Pronounced Over Left Lateral Thigh, Bilateral Elbows with Elbow Pads in Place, Left Knee with Mild Edema but No Erythema or Warmth, Decreased ROM COmpared to Right Knee Current Medications: Current Medications Sig/Dagoberto Start time Last Medication Dose Route Stop Time Status Admin Acetaminophen 650 MG .STK-MED ONE 10/27 0933 DC PO 10/27 0934 Acetaminophen 650 MG Q6P PRN 10/25 1115 AC 10/27 PO 0932 Atorvastatin Calcium 20 MG 1700 10/25 1700 AC 10/27 PO 1750 Bisacodyl 10 MG ONE TIME PRN 10/26 1600 AC DC Cefazolin Sodium 1,000 MG IQ8 10/26 1600 AC 10/27 IV 1750 Furosemide 40 MG DAILY 10/25 1000 AC 10/27 PO 0927 Hydralazine HCl 25 MG BID 10/25 1000 AC 10/27 PO 0927 Hydromorphone HCl 0.2 MG Q4P PRN 10/26 0800 AC 10/26 IV 0914 Insulin Aspart 0 TIDAC 10/25 1200 AC 10/27 SC 1750 Isosorbide 30 MG DAILY 10/25 1000 AC 10/27 Mononitrate PO 0927 Metoprolol Tartrate 50 MG BID 10/25 1000 AC 10/27 PO 0927 Multivitamins 1 TAB DAILY 10/25 1000 AC 10/27 PO 0927 Omeprazole 40 MG DAILY AC 10/25 0810 AC 10/27 PO 0529 Patient Medication 1 ED .STK-MED ONE 10/27 1355 [facility] Teaching [facility] 10/27 1356 Phytonadione 5 MG ONE ONE 10/27 1730 [facility] 10/27 1731 Prednisone 60 MG DAILY 10/26 1540 AC 10/27 PO 0928 Tamsulosin HCl 0.4 MG DAILY 10/27 1045 AC 10/27 PO 1750 Tramadol HCl 50 MG Q8P PRN 10/25 1115 AC 10/26 PO 0958 Warfarin Sodium 1 MG COUMADIN 1700 ONE 10/27 1700 CAN PO 10/27 1701 Last 24 Hrs of Lab/Hemal Results Last 24 Hrs of Labs/Mics: Laboratory Tests 10/27/16 0530: Anion Gap 6, Estimated GFR 50 L, BUN/Creatinine Ratio 27.9 H, PT 30.4 H, INR 2.93 H, CBC w Diff NO MAN DIFF REQ, RBC 3.07 L, MCV 84.2, MCH 28.3, RDW 16.8 H, MPV 8.3, Gran % 93.9 H, Lymphocytes % 3.8 L, Monocytes % 2.2, Eosinophils % 0.1, Basophils % 0 L, Absolute Granulocytes 17.0 H, Absolute Lymphocytes 0.7 L, Absolute Monocytes 0.4, Absolute Eosinophils 0, Absolute Basophils 0, PUBS MCHC 33.6 BCx (10/25/16): Staph aureus BCx (10/26/16): NGTD Orders Radiology Findings: CHEST US: Complicated fluid collection is seen in the soft tissues lateral to the pacer lead in the left upper chest. This is a nonspecific finding and may represent an infected fluid collection in the clinical setting provided. Differential would also include a complex seroma or possibly liquefied hematoma. Clinical correlation is requested. No significant fluid collection is seen surrounding the generator box. Miscellaneous Findings: PELVIS MRI: 1. Limited and incomplete exam. 2. Pneumatosis of the bladder wall and prominent free air within the pelvis are again seen, minimally decreased compared to prior exam. Findings may be related to iatrogenic injury versus emphysematous cystitis. Close clinical correlation is requested. 3. Moderate colonic diverticulosis. No evidence of acute diverticulitis. No intrapelvic abscess collection seen. 4. Anasarca in the soft tissues of the pelvis. LEFT FEMUR MRI: Extensive moderate to severe diffuse abnormal T2 signal/edema in the visualized musculature of the left femur. There is interfascial fluid present. There is extensive subcutaneous edema and soft tissue edema present. No drainable fluid collections are seen. The imaging findings are nonspecific. Differential considerations include myositis, infectious, or inflammatory process. Incompletely evaluated diffuse edema/T2 signal in the musculature of the visualized right femur, as well. 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 #Staph aureus sepsis: Ultrasound of the chest performed today with complicated fluid collection in the soft tissues lateral to the pacer lead which was subsequently aspirated to yield purulent fluid, consistent with the formation of an abscess at the site. MRI of the left femur showing extensive moderate to severe diffuse abnormal T2 signal/edema with no drainable fluid collection, with the differential including myositis, infectious or inflammatory process, which could potentially represent seeding of the femur, although this would have to be further explored. Remains afebrile but with persistent leukocytosis, likely secondary to high-dose steroid therapy on day 3 of IV cefazolin. Most recent BCx (10/26/16) negative so far. * ID following. Appreciate their recs. * Cardiology consulted for further management of infected pacemaker. No urgent need for removal this evening per their eval. Per their recs, patient will be kept NPO overnight for pacemaker removal in the AM. * Contact thoracic surgery in the AM for pacemaker removal. * Continue cefazolin 1 g IV Q8H. #Supratherapeutic INR: INR 2.93 today. * Administer 5 mg of SQ vitamin K in anticipation for pacemaker removal in the AM. * Hold warfarin. #Atrial fibrillation: * Continue telemetry. * Continue [id number] metoprolol 50 mg PO BID. #Hyperkalemia: K persistently elevated, 5.4 today. Likely secondary to underlying CKD. * Continue to monitor K. #Chronic venous ulcers: Healing with no evidence of infection. * Management per wound care team. * Clean and cover with Xeroform daily. #Right elbow olecranon bursitis: No drainable fluid collection identified by orthopedic surgery. * If elbow fluid reaccumulates, contact orthopedic surgery for drainage. * Continue bilateral elbow pads. 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 #Pressure ulcers: Clean stage III pressure ulcer measuring approximately 2 x 1 cm on left buttock and stage III pressure ulcer measuring approximately 1.3 x 0.7 cm with red and yellow fill without erythema or exposed bone. Pressure ulcers present on admission. * Management per wound care team. * Place patient on a low air loss mattress. * Pressure ulcers of the coccyx to be examined by wound care once adequate pain control is achieved. #Non-insulin dependent T2DM: Takes Januvia 50 mg PO daily. * Accu-checks and low-dose sliding scale Novolog TIDAC. #HFrEF: ECHO this admission with LVEF estimated at 40-45%. * Continue gvyro-bt-fdnfxetiu Lasix 40 mg PO daily. * Monitor I/Os and daily weights. Diet: Consistent Carbohydrate 2 with 2 g Na and 2 g K Restriction DVT PPx: Warfarin and ALPs CODE: FULL Problem List: 1. Stage III pressure ulcer of buttock 2. Olecranon bursitis, right elbow 3. Staphylococcus aureus sepsis 4. Non-insulin dependent type 2 diabetes mellitus 5. Venous stasis ulcers of both lower extremities 6. BPH (benign prostatic hyperplasia) 7. Hyperkalemia 8. Pressure ulcer of coccygeal region 9. Pacemaker infection Pain Ratin Pain Location: Left thigh Pain Goal: Remain pain free Pain Plan: Dilaudid 0.2 mg IV Q4H PRN for severe pain (scale 7-10) Tramadol 50 mg PO Q8H PRN for moderate pain (scale 4-6) Tylenol 650 mg PO Q6H PRN for mild pain (scale 1-3) Tomorrow's Labs & Rationales: CBC to monitor WBC count in the setting of infection BMP to monitor lytes and electrolyte function in the setting of CKD INR to monitor supratherapeutic INR
[2016-10-27 08:17] VITALS: BP 108/74
--- NOTE | 2016-10-27 09:18 | PN- Att Addend ---
Attending Addendum Attending Brief Note Patient reports pain left hip. General Appearance: Alert, No Acute Distress Skin: Grossly normal HEENT: PEERLA Neck: Supple, No JVD Cardiovascular: Regular Rate, Normal S1, Normal S2, No Murmurs Lungs: Clear to Auscultation, Normal Air Movement Abdomen: Left thigh tenderness Neurological: Normal Speech, Strength at 5/5 X4 Ext, Cranial Nerves 3-12 NL, Reflexes 2+ Extremities: Pedal edema Assessment 71-year-old with history of atrial fibrillation on Coumadin, [place], status post pacemaker, CHF, hypertension, varicose veins, chronic anemia, history of recent renal failure and venous insufficiency presenting with left groin pain after cystoscopy. 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 Urology considers air in subcutaneous tissue likely post procedure with microperforation of the bladder that does not need any intervention at this time. Kidney function is stable. MSSA currently on cefazolin. Right olecranon bursitis minimal fluid for aspiration. Patient continues to have extreme left hip pain and we are planning for MRI lumbosacral spine to rule out discitis. Plan Continue antibiotics MRI lumbar sacral spine Follow blood cultures Continue home medication including Lasix Resume low-dose Coumadin Continue other medications Current Medications Sig/Dagoberto Start time Last Medication Dose Route Stop Time Status Admin Acetaminophen 650 MG .STK-MED ONE 10/26 1723 DC PO 10/26 1724 Acetaminophen 650 MG Q6P PRN / 1115 AC 05/ PO 1724 Atorvastatin Calcium 20 MG 1700 05/02 1700 AC 05/03 PO 1711 Bisacodyl 10 MG ONE TIME PRN 10/26 1600 AC NC Cefazolin Sodium 1,000 MG IQ8 10/26 1600 AC 05/04 IV 0026 Ceftriaxone Sodium 1,000 MG Q24H 05/02 1400 DC 05/02 IV 1450 Diltiazem HCl 90 MG .STK-MED ONE 10/26 1306 DC PO /03 1307 Furosemide 40 MG DAILY 05/02 1000 AC 05/03 PO 0916 Hydralazine HCl 25 MG BID 05/02 1000 AC 05/ PO 2049 Hydromorphone HCl 0.2 MG Q4P PRN 10/26 0800 AC 05/03 IV 0914 Insulin Aspart 0 TIDAC 05/ 1200 AC 0503 SC 1723 Isosorbide 30 MG DAILY 05/02 1000 AC 05/03 Mononitrate PO 0915 Metoprolol Tartrate 50 MG BID 10/25 1000 AC 10/26 PO 2049 Multivitamins 1 TAB DAILY 10/25 1000 AC 10/26 PO 0916 Omeprazole 40 MG DAILY AC 10/25 0810 AC 10/27 PO 05 Prednisone 60 MG DAILY 10/26 1540 AC 10/26 PO 1711 Tramadol HCl 50 MG Q8P PRN 10/25 1115 AC 10/26 PO 0958 Vancomycin HCl 1,000 MG Q24H 10/25 1400 DC 10/25 Sodium Chloride 250 ML IV 1621 Laboratory Tests 10/27 529 Chemistry Sodium (137 - 145 mmol/L) 131 L Potassium (3.5 - 5.1 mmol/L) 5.4 H Chloride (98 - 107 mmol/L) 103 Carbon Dioxide (22 - 30 mmol/L) 22 Anion Gap (5 - 16) 6 BUN (9 - 20 mg/dL) 39 H Creatinine (0.7 - 1.2 mg/dL) 1.4 H Estimated GFR (>60 ml/min) 50 L BUN/Creatinine Ratio (7 - 25 %) 27.9 H Coagulation PT (9.4 - 12.5 SEC) 30.4 H INR (0.90 - 1.17) 2.93 H Hematology CBC w Diff NO MAN DIFF REQ WBC (4.8 - 10.8 /CUMM) 18.1 H RBC (4.70 - 6.10 /CUMM) 3.07 L Hgb (14.0 - 18.0 G/DL) 8.7 L Hct (42 - 52 %) 25.8 L MCV (80.0 - 94.0 FL) 84.2 MCH (27.0 - 31.0 PG) 28.3 RDW (11.5 - 14.5 %) 16.8 H Plt Count (130 - 400 /CUMM) 66 L MPV (7.4 - 10.4 FL) 8.3 Gran % (42.2 - 75.2 %) 93.9 H Lymphocytes % (20.5 - 51.1 %) 3.8 L Monocytes % (1.7 - 9.3 %) 2.2 Eosinophils % (0 - 5 %) 0.1 Basophils % (0.0 - 2.0 %) 0 L Absolute Granulocytes (1.4 - 6.5 /CUMM) 17.0 H Absolute Lymphocytes (1.2 - 3.4 /CUMM) 0.7 L Absolute Monocytes (0.10 - 0.60 /CUMM) 0.4 Absolute Eosinophils (0.0 - 0.7 /CUMM) 0 Absolute Basophils (0.0 - 0.2 /CUMM) 0 PUBS MCHC (33.0 - 37.0 G/DL) 33.6 Vital Signs Date Time Temp Pulse Resp B/P B/P Pulse O2 O2 Flow FiO2 Mean Ox Delivery Rate 10/27 0817 97.7 19 18 108/74 98 Room Air 10/26 2347 98.5 110 20 110/70 94 Room Air 10/26 2049 110 122/70 05 2049 112 122/70 10/26 1638 97.1 108 20 118/68 96 Room Air
--- NOTE | 2016-10-27 10:27 | PN- Infect Dx ---
See Addendum Subjective Subjective: Afebrile on steroids. He feels improved with decreased pain in the left thigh area though still notes discomfort with movement. He has no pain in the right elbow or back. Objective Last 24 Hrs of Vital Signs/I&O Vital Signs Date Time Temp Pulse Resp B/P B/P Pulse O2 O2 Flow FiO2 Mean Ox Delivery Rate 10/27 926 110/70 10/27 926 110/70 10/27 926 110/70 10/27 0817 97.7 19 18 108/74 98 Room Air 10/26 2347 98.5 110 20 110/70 94 Room Air 10/26 2049 110 122/70 10/26 2049 112 122/70 10/26 1638 97.1 108 20 118/68 96 Room Air Intake & Output 10/27 1600 10/27 0800 10/27 0000 Intake Total 110 420 Output Total 800 850 Balance -690 -430 Intake, IV 20 Intake, Oral 110 400 Number 0 Bowel Movements Output, Urine 800 850 Physical Exam Other Physical Findings: He appears comfortable in no acute distress Lungs are clear Chest pacemaker site in the left upper chest ecchymotic with no erythema or tenderness Heart regular rhythm with no murmur Back sacral decubitus clean with no erythema, purulence or necrosis Extremities left thigh tender laterally, with edema; right elbow erythema with minimal swelling and with normal range of motion, nontender to palpation; left knee with minimal edema, without erythema but with decreased range of motion compared to the right knee Rivera catheter remains in place Results Last 24 Hours of Lab Results: Laboratory Tests 10/27 529 Chemistry Sodium (137 - 145 mmol/L) 131 L Potassium (3.5 - 5.1 mmol/L) 5.4 H Chloride (98 - 107 mmol/L) 103 Carbon Dioxide (22 - 30 mmol/L) 22 Anion Gap (5 - 16) 6 BUN (9 - 20 mg/dL) 39 H Creatinine (0.7 - 1.2 mg/dL) 1.4 H Estimated GFR (>60 ml/min) 50 L BUN/Creatinine Ratio (7 - 25 %) 27.9 H Coagulation PT (9.4 - 12.5 SEC) 30.4 H INR (0.90 - 1.17) 2.93 H Hematology CBC w Diff NO MAN DIFF REQ WBC (4.8 - 10.8 /CUMM) 18.1 H RBC (4.70 - 6.10 /CUMM) 3.07 L Hgb (14.0 - 18.0 G/DL) 8.7 L Hct (42 - 52 %) 25.8 L MCV (80.0 - 94.0 FL) 84.2 MCH (27.0 - 31.0 PG) 28.3 RDW (11.5 - 14.5 %) 16.8 H Plt Count (130 - 400 /CUMM) 66 L MPV (7.4 - 10.4 FL) 8.3 Gran % (42.2 - 75.2 %) 93.9 H Lymphocytes % (20.5 - 51.1 %) 3.8 L Monocytes % (1.7 - 9.3 %) 2.2 Eosinophils % (0 - 5 %) 0.1 Basophils % (0.0 - 2.0 %) 0 L Absolute Granulocytes (1.4 - 6.5 /CUMM) 17.0 H Absolute Lymphocytes (1.2 - 3.4 /CUMM) 0.7 L Absolute Monocytes (0.10 - 0.60 /CUMM) 0.4 Absolute Eosinophils (0.0 - 0.7 /CUMM) 0 Absolute Basophils (0.0 - 0.2 /CUMM) 0 PUBS MCHC (33.0 - 37.0 G/DL) 33.6 Last 24 Hours of Hemal Results: Blood cultures October 25 positive for Staph aureus Blood cultures October 26 negative so far Recent Imaging Studies: Echocardiogram October 26 no vegetations Assessment/Plan Impression: Staph aureus sepsis, now on Cefazolin, Day 3 of treatment, with temperatures normal and white blood cell count remaining elevated, likely secondary to steroids, which were restarted yesterday for his underlying vasculitis. 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 His recent urine culture, prior to admission, did grow Proteus and, given his symptoms of urgency prior to admission and the CT findings, can continue treatment for a urinary tract infection. Suggestion: 1. Would pursue MRI of the pelvis including the left lower extremity 2. X-ray of the left knee if unable to image with the MRI 3. Will consider MRI of the lumbosacral spine based on above 4. Ultrasound of the left chest to evaluate the pacemaker site 5. Will need to consider SU 6. Would remove Rivera catheter if okay with Urology 7. Will need to pursue placement of a PICC or Pro-Line (will need to discuss with Renal) 8. Continue Cefazolin
--- NOTE | 2016-10-27 11:24 | Cons- Cardiology ---
General Information and HPI Consulting Request Date of Consult: 10/27/16 Requested By: ADAN FENTON MD Reason for Consult: Monitoring in a patient with a MRI conditional pacemaker who requires an MRI. Source of Information: patient, old records Exam Limitations: no limitations History of Present Illness: The patient is a 71-year-old man who had a single-chamber MRI compatible device implanted about 7 weeks ago. He is now here requiring an MRI to rule out discitis. The patient's past history was reviewed. The pacemaker and leads were MRI compatible and a chest x-ray did not document any contraindications to MRI. In the MRI suite all paperwork was filled out appropriately and then timeout was taken. Informed consent was obtained from the patient. The pacemaker was placed in the SureScan and OVO mode as he is not pacemaker dependent. The patient then underwent the MRI successfully. Post MRI the pacemaker was again interrogated and sure scan mode was turned off, and the pacemaker was placed back in the VVIR mode. There were no complications of this procedure. Allergies/Medications Allergies: Coded Allergies: No Known Allergies (09/10/16) Home Med List: Acetaminophen (Acephen) 650 MG SUPP.RECT 1 SUPP ID Q4H PRN PAIN/TEMP>100 ( Reported) Acetaminophen 325 MG TABLET 2 TAB PO Q4H PRN PAIN/TEMP>/100 (Reported) Atorvastatin Calcium 20 MG TABLET 20 MG PO 1700 CHOLESTEROL Bisacodyl 10 MG SUPP.RECT 1 SUP RC PRN CONSTIPATION (Reported) Furosemide 40 MG TABLET 1 TAB PO DAILY WATER RETENTION (Reported) Hydralazine HCl 25 MG TABLET 25 MG PO BID CARDIOMYOPATHY Isosorbide Mononitrate (Isosorbide Mononitrate ER) 30 MG TAB.ER.24H 30 MG PO DAILY CARDIOMYOPATHY Lactobacillus Acidophilus (Acidophilus) 1 EACH CAPSULE 1 CAP PO BID PROBIOTIC (Reported) Magnesium Hydroxide (Milk Of Magnesia) 400 MG/5 ML ORAL.SUSP 30 ML PO DAILY PRN CONSTIPATION (Reported) Metoprolol Tartrate 50 MG TABLET 1 TAB PO BID AFIB (Reported) Multivit-Min/FA/Lycopen/Lutein (Centrum Silver Men Tablet) 300 MCG-600 MCG-300 MCG TABLET 1 TAB PO DAILY SUPPLEMENT (Reported) Na Phos,M-B/Na Phos,Di-Ba (Fleet Enema) 19 GRAM-7 GRAM/118 ML ENEMA 1 E RC DAILY PRN CONSTIPATION (Reported) Omeprazole 20 MG CAPSULE.DR 40 MG PO DAILY AC GI PROPHYLAXIS Prednisone 20 MG TABLET 60 MG PO DAILY VASCULITIS Protein Supplement (Promod) 946 ML LIQUID 30 ML PO BID SUPPLEMENT (Reported) Sennosides/Docusate Sodium (Senna S Tablet) 8.6 MG-50 MG TABLET 2 TAB PO QPM CONSTIPATION (Reported) Sitagliptin Phosphate (Januvia) 50 MG TABLET 1 TAB PO DAILY diabetes Tramadol HCl 50 MG TABLET 1 TAB PO Q8H PRN MODERATE TO SEVERE PAIN (Reported) Warfarin Sodium (Coumadin) 3 MG TABLET 1 TAB PO DAILY BLOOD THINNER (Reported ) Review of Systems Review of Systems: Noncontributory Past History Travel History Traveled to [place] past 21 day No Medical History Blood Transfusion Hx: Yes Neurological: NONE EENT: NONE Cardiovascular: AFIB, CAD, hypertension, RUPTURED VARICOSE VEIN Respiratory: NONE Gastrointestinal: HEMMORHOIDS Hepatic: NONE Renal: chronic kidney disease Psychiatric: NONE Endocrine: NONE Blood Disorders: NONE Cancer(s): NONE FAMILY PRESERVATION OFFICER/Reproductive: NONE Surgical History Surgical History: cholecystectomy, angioplasty status post pacemaker pacemaker Family History Relations & Conditions If Any: MOTHER FH: myocardial infarction Psychosocial History Where Do You Live? Acute Rehab Who Do You Live With? child Services at Home: None Primary Language: Mexican Smoking Status: Never Smoked Illicit Drug Use: denies illicit drug use Living Will? unknown Power of Manager Pool/HCP? unknown Functional Ability ADLs Needs Assist: dressing, eating, toileting, bathing. IADLs Needs Assist: shopping, housework, finances, food prep, telephone, transportation, medication admin. Exam & Diagnostic Data Vital Signs and I&O Vital Signs Date Time Temp Pulse Resp B/P B/P Pulse O2 O2 Flow FiO2 Mean Ox Delivery Rate 10/27 926 110/70 10/27 926 110/70 10/27 0927 110/70 10/27 0817 97.7 19 18 108/74 98 Room Air 10/26 2347 98.5 110 20 110/70 94 Room Air 10/26 2048 110 122/70 10/26 2048 112 122/70 10/26 1638 97.1 108 20 118/68 96 Room Air Intake & Output 10/27 1600 10/27 0800 10/27 0000 10/26 1600 10/26 0810/26 0000 Intake Total 110 420 480 840 Output Total 800 850 450 750 750 Balance -690 -430 -450 -270 90 Intake, IV 20 Intake, Oral 110 400 480 840 Number 0 Bowel Movements Output, Urine 800 850 450 750 750 Patient 204 lb Weight Physical Exam: His pacemaker is in the left chest and is well-healed Labs/Hemal Results: Laboratory Tests 10/27 10/26 0530 0620 Chemistry Sodium (137 - 145 mmol/L) 131 L 136 L Potassium (3.5 - 5.1 mmol/L) 5.4 H 5.3 H Chloride (98 - 107 mmol/L) 103 103 Carbon Dioxide (22 - 30 mmol/L) 22 23 Anion Gap (5 - 16) 6 9 BUN (9 - 20 mg/dL) 39 H 39 H Creatinine (0.7 - 1.2 mg/dL) 1.4 H 1.7 H Estimated GFR (>60 ml/min) 50 L 40 L BUN/Creatinine Ratio (7 - 25 %) 27.9 H 22.9 Total Bilirubin (0.2 - 1.3 mg/dL) 0.5 Direct Bilirubin (< 0.4 mg/dL) 0.3 AST (17 - 59 U/L) 19 ALT (21 - 72 U/L) 47 Alkaline Phosphatase (< 127 U/L) 119 Total Protein (6.3 - 8.2 g/dL) 4.9 L Albumin (3.5 - 5.0 g/dL) 2.0 L Coagulation PT (9.4 - 12.5 SEC) 30.4 H 38.0 H INR (0.90 - 1.17) 2.93 H 3.67 H Hematology CBC w Diff NO MAN DIFF REQ MAN DIFF ORDERED WBC (4.8 - 10.8 /CUMM) 18.1 H 16.0 H RBC (4.70 - 6.10 /CUMM) 3.07 L 3.61 L Hgb (14.0 - 18.0 G/DL) 8.7 L 10.2 L Hct (42 - 52 %) 25.8 L 30.5 L MCV (80.0 - 94.0 FL) 84.2 84.3 MCH (27.0 - 31.0 PG) 28.3 28.3 RDW (11.5 - 14.5 %) 16.8 H 16.6 H Plt Count (130 - 400 /CUMM) 66 L 73 L MPV (7.4 - 10.4 FL) 8.3 8.1 Gran % (42.2 - 75.2 %) 93.9 H 88.9 H Lymphocytes % (20.5 - 51.1 %) 3.8 L 5.4 L Monocytes % (1.7 - 9.3 %) 2.2 5.1 Eosinophils % (0 - 5 %) 0.1 0.4 Basophils % (0.0 - 2.0 %) 0 L 0.2 Absolute Granulocytes (1.4 - 6.5 /CUMM) 17.0 H 14.2 H Segmented Neutrophils (42.2 - 75.2 %) 82 H Band Neutrophils (0.0 - 5.0 %) 2 Absolute Lymphocytes (1.2 - 3.4 /CUMM) 0.7 L 0.9 L Lymphocytes (20.5 - 51.1 %) 5 L Monocytes (1.7 - 9.3 %) 9 Absolute Monocytes (0.10 - 0.60 /CUMM) 0.4 0.8 H Absolute Eosinophils (0.0 - 0.7 /CUMM) 0 0.1 Absolute Basophils (0.0 - 0.2 /CUMM) 0 0 Metamyelocytes (0.0 - 1.0 %) 1 Myelocytes (0 - 0 %) 1 H Platelet Estimate (ADEQUATE) DECREASED Hypochromic-Microcytic 1+ Poikilocytosis 2+ Anisocytosis 1+ PUBS MCHC (33.0 - 37.0 G/DL) 33.6 33.5 05/02 1812 Chemistry Potassium (3.5 - 5.1 mmol/L) 5.1 Diagnostic Data EKG Results His EKG shows atrial fibrillation with occasional paced beat Assessment/Plan Assessment/Plan The patient underwent successful MRI with programming of his pacemaker into Surescan mode and OVO for the procedure and then reprogrammed back to normal parameters post scan. There were no complications. Copies To: JULIO BAKER,ETHAN Feldman JR Consult Acknowledgment - Thank you for your consult request.
--- NOTE | 2016-10-27 12:47 | PN- Thoracic Surgery ---
Surgical Brief Attending Note Brief Attending Note: Pacemaker pocket site is clean, not a concern for infection
--- NOTE | 2016-10-27 13:27 | ULTRASOUND REPORT ---
EXAMINATION: US PLEURAL EFFUSION CLINICAL INFORMATION: Positive blood cultures. Evaluate for infection at the pacemaker site. Pacer placed 09/09/2016. COMPARISON: Chest x-ray dated 10/08/2016. TECHNIQUE: Focused ultrasound of the left upper chest was performed with real-time assessment with the reading radiologist. FINDINGS: The left pectoral pacemaker generator in the upper chest is visualized and appears unremarkable with no significant surrounding fluid collection seen. Single lead is seen extending from this generator box in the soft tissues to the left subclavian vein. There is a small ovoid mildly complicated fluid collection seen adjacent to this pacer lead, measuring approximately 2.9 x 0.5 x 0.8 cm. IMPRESSION: Complicated fluid collection is seen in the soft tissues lateral to the pacer lead in the left upper chest. This is a nonspecific finding and may represent an infected fluid collection in the clinical setting provided. Differential would also include a complex seroma or possibly liquefied hematoma. Clinical correlation is requested. No significant fluid collection is seen surrounding the generator box.
--- NOTE | 2016-10-27 14:41 | MRI REPORT ---
EXAMINATION: MR PELVIS WITHOUT CONTRAST CLINICAL INFORMATION: Left hip/groin/thigh pain and positive blood cultures. Patient has MRI condition of pacer. Evaluate for signs of infection in the pelvis. COMPARISON: CT scan of the pelvis dated 10/24/2016. TECHNIQUE: MRI scan of the pelvis was performed using multiple imaging sequences and imaging planes. Only limited images of the pelvis could be obtained as the study was prematurely discontinued as per patient's request. Technologist states that patient deferred additional imaging due to severe leg pain. The patient has been advised of pacer. As per departmental protocol, all procedures were followed for clearance of the device and during the performance of the MRI scan. FINDINGS: Bladder: As seen on the previous CT scan, the bladder is markedly abnormal with multiple locules of air seen within the bladder wall. The bladder is only partially distended and a Rivera catheter is seen in its lumen. No definite bladder mass is appreciated on these limited sequences. There is prominent free air again seen surrounding the bladder in the pelvis, minimally decreased in volume compared to the prior exam. No definite the urine extravasation is noted. Prostate gland and seminal vesicles: Prostate gland is enlarged and heterogeneous and suboptimally assessed. Seminal vesicles bilaterally are symmetric. Bowel loops: There is marked to underdistention of the rectum, which is filled with fecal material, similar to the previous CT scan. Moderate sigmoid colonic and distal descending colonic diverticulosis is seen with no evidence of acute diverticulitis. Included small and large bowel loops are otherwise unremarkable. There is a small umbilical hernia, incompletely imaged. Lymphovascular structures: Unremarkable. No pelvic adenopathy is seen. Musculoskeletal structures: There is a small amount of anasarca in the soft tissues. On the T2-weighted sequences obtained, inhomogeneous fat saturation is present, leading to artifactual appearance of increased T2 bright signal/edema in the muscles about the pelvis. When reviewing the T1 weighted sequences, no abnormal enlargement or edema off the musculature is seen. The fat planes between the muscle groups and within the muscle bundles are all well preserved. There is atrophy of the gluteus muscles and several of the muscles of the thigh. No definite focal soft tissue collection or mass is seen. Small amount of presacral edema is present. Bony structures are grossly unremarkable. IMPRESSION: 1. Limited and incomplete exam. 2. Pneumatosis of the bladder wall and prominent free air within the pelvis are again seen, minimally decreased compared to prior exam. Findings may be related to iatrogenic injury versus emphysematous cystitis. Close clinical correlation is requested. 3. Moderate colonic diverticulosis. No evidence of acute diverticulitis. No intrapelvic abscess collection seen. 4. Anasarca in the soft tissues of the pelvis.
[2016-10-27 15:40] VITALS: BP 110/66
--- NOTE | 2016-10-27 16:26 | MRI REPORT ---
EXAMINATION: MRI LEFT FEMUR CLINICAL INFORMATION: Left thigh and hip pain. COMPARISON: None. TECHNIQUE: MRI of the left femur without contrast. CT 10/24/2016. FINDINGS: There is significant artifact on the axial sequences, with associated limitations. In the visualized left femur, the marrow signal is within normal limits, without evidence of significant edema or discrete fracture. The proximal femoral head and neck is not included in the [id number]. Refer to the pelvic MRI report. In the visualized left lower extremity, there is moderate to severe edema/T2 signal diffusely within the visualized musculature. This includes the visualized muscles of the adductor compartment, the inferior gluteal musculature, and the muscles of the antrum posterior aspect of the thigh. There is generalized atrophy of the musculature noted. There is some fluid within the interfascial planes, as well. There is extensive subcutaneous edema diffusely within the lower extremity, along with edema in the skin. No loculated or drainable fluid collections identified. On the coronal sequences, there is a diffuse edema/T2 signal noted in the musculature of the right femur, as well. This is incompletely evaluated on the single plane of imaging. No suspicious marrow signal changes evident. There is a small knee joint effusion present. No suspicious marrow signal changes in the visualized patella and proximal tibia. IMPRESSION: Extensive moderate to severe diffuse abnormal T2 signal/edema in the visualized musculature of the left femur. There is interfascial fluid present. There is extensive subcutaneous edema and soft tissue edema present. No drainable fluid collections are seen. The imaging findings are nonspecific. Differential considerations include myositis, infectious, or inflammatory process. Incompletely evaluated diffuse edema/T2 signal in the musculature of the visualized right femur, as well.
--- NOTE | 2016-10-27 19:45 | ULTRASOUND REPORT ---
PROCEDURE: US GUIDANCE DIAGNOSTIC ASPIRATION CLINICAL INFORMATION: 71-year-old patient with blood cultures positive for staph aureus. Ultrasound performed earlier today showing a small fluid collection around the patient's left pectoral pacemaker which was placed proximally 6 weeks ago. COMPARISON: Ultrasound soft tissues of the left chest performed earlier this morning which demonstrated a 2.9 x 0.8 x 0.8 cm ovoid complex fluid collection adjacent to the patient's pacemaker lead. TITLE INSURANCE SALES REPRESENTATIVE: Denilson Cortez M.D. DESCRIPTION: Informed consent was obtained from the patient prior to the procedure. During this process, the procedure and potential alternatives was explained, along with the intended outcome and benefits. The risks of the procedure, as well as the risk of not doing the procedure, were discussed. The patient was given the opportunity to ask questions regarding the procedure and appeared competent to make medical decisions. A signed consent form which documents this discussion was placed in the medical record. Review was made of the patient's prior left chest ultrasound. The patient was brought to the ultrasound suite and a final timeout procedure was performed. The previously described fluid collection was identified which was located somewhat posterior to the pacemaker. The overlying soft tissues were sterilely prepped and draped. Maximum sterile barrier technique was maintained throughout the procedure. Local anesthesia was administered using 1% lidocaine. Under direct sonographic visualization, a Yueh needle was introduced into the collection under continuous sonographic visualization. Approximately 6 mL of purulent blood tinged fluid was aspirated. A specimen was sent for culture and sensitivity. No significant residual fluid was identified following the aspiration. IMPRESSION: Purulent material aspirated posterior pocket of the patient's left pectoral pacemaker under ultrasound guidance. Specimen was sent to microbiology for Gram stain, culture, and metabolic sensitivity.
[2016-10-27 22:13] VITALS: BP 126/68
--- NOTE | 2016-10-28 07:04 | PN- Housestaff ---
Subjective Follow-up For: Staph aureus sepsis Pacemaker infection Tele-Events Since Last Visit: Atrial fibrillation HR 86-94 Intermittent PVCs Subjective: No acute events overnight. Patient seen and examined this morning. He continues to complain of pain in his left hip. He denies chest pain, shortness of breath or palpitations. Review of Systems Constitutional: Reports: see HPI. Objective Last 24 Hrs of Vital Signs/I&O Vital Signs Date Time Temp Pulse Resp B/P B/P Pulse O2 O2 Flow FiO2 Mean Ox Delivery Rate 10/28 1559 96.2 82 16 108/64 97 Room Air 10/28 1232 97.6 91 16 112/70 05 0917 91 112/70 10/28 0916 91 112/70 05/ 0916 91 112/70 / 0915 91 112/70 10/28 0823 97.6 99 16 120/58 97 Room Air 10/27 2213 97.9 84 18 126/68 97 Room Air 10/27 2137 96 126/64 Intake & Output 10/28 1600 10/28 0800 10/28 0000 Intake Total 200 300 Output Total 650 1000 Balance -450 -700 Intake, Oral 200 300 Output, Urine 650 1000 Physical Exam General Appearance: Alert, Oriented X3, No Acute Distress HEENT: Atraumatic, Mucous Membr. moist/pink Cardiovascular: Normal S1, Normal S2, No Murmurs, Gallops, Rubs, Irregularly Irregular Lungs: Clear to Auscultation Abdomen: Soft, No Tenderness, Positive Bowel Sounds Extremities: No Clubbing, No Cyanosis, No Edema, Dressing in Place on Bilateral Lower Extremities, Left Thigh with Mild Tenderness to Palpation Current Medications: Current Medications Sig/Dagoberto Start time Last Medication Dose Route Stop Time Status Admin Acetaminophen 650 MG Q6P PRN 10/25 1115 AC 10/28 PO 1252 Atorvastatin Calcium 20 MG 1700 10/25 1700 AC 10/28 PO 1730 Bisacodyl 10 MG ONE TIME PRN 10/26 1600 AC AZ Cefazolin Sodium 1,000 MG IQ8 10/26 1600 AC 10/28 IV 1729 Dextrose/Sodium 1,000 ML Q13H 10/28 1630 AC Chloride IV Furosemide 40 MG DAILY 10/25 1000 AC 05 PO 0916 Hydralazine HCl 25 MG BID 10/25 1000 AC 10/28 PO 0915 Hydromorphone HCl 0.2 MG Q4P PRN 10/26 0800 AC 10/26 IV 0914 Insulin Aspart 0 TIDAC 10/25 1200 DC 10/27 SC 1750 Insulin Human Regular 0 Q6 10/28 1800 AC SC Isosorbide 30 MG DAILY 10/25 1000 AC 10/28 Mononitrate PO 0916 Metoprolol Tartrate 50 MG BID 10/25 1000 AC 10/28 PO 0917 Multivitamins 1 TAB DAILY 10/25 1000 AC 10/28 PO 0917 Omeprazole 40 MG DAILY AC 10/25 0810 AC 10/28 PO 0549 Prednisone 60 MG DAILY 10/26 1540 AC 10/28 PO 0917 Tamsulosin HCl 0.4 MG DAILY 10/27 1045 AC 10/28 PO 0916 Tramadol HCl 50 MG Q8P PRN 10/25 1115 AC 10/26 PO 0958 Last 24 Hrs of Lab/Hemal Results Last 24 Hrs of Labs/Mics: Laboratory Tests 10/28/16 0628: Anion Gap 7, Estimated GFR 46 L, BUN/Creatinine Ratio 28.0 H, PT 22.1 H, INR 2.12 H, CBC w Diff NO MAN DIFF REQ, RBC 3.24 L, MCV 84.6, MCH 28.2, RDW 16.9 H, MPV 8.0, Gran % 92.0 H, Lymphocytes % 4.5 L, Monocytes % 3.3, Eosinophils % 0.1, Basophils % 0.1, Absolute Granulocytes 16.9 H, Absolute Lymphocytes 0.8 L , Absolute Monocytes 0.6, Absolute Eosinophils 0, Absolute Basophils 0, PUBS MCHC 33.3 Microbiology 10/28 1145 BLOOD: Blood Culture - RECD 10/28 114 BLOOD: Blood Culture - RECD BCx (10/26/16): Gram positive cocci in one out of two sets Aspiration of fluid around the pacemaker (10/27/16): NGTD Orders Radiology Findings: US GUIDANCE DIAGNOSTIC ASPIRATION: Purulent material aspirated posterior pocket of the patient's left pectoral pacemaker under ultrasound guidance. Specimen was sent to microbiology for Gram stain, culture, and metabolic sensitivity. 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 #Staph aureus sepsis: Most likely source is the pacemaker in light of aspiration of purulent drainage from the pacemaker pocket yesterday, however it is unclear if this is the primary source or if the infection represents secondary seeding from another primary source. Culture of the aspirate negative so far. Other possible sources include left hip/thigh with MRI of the left femur showing extensive diffuse edema with no drainable fluid collection, left knee with small knee effusion identified on the MRI, right olecranon bursitis with no drainable fluid collection per orthopedic surgery evaluation and the urinary tract, s/p cytoscopy with previous urine culture growing Proteus although this is felt to represent contamination, but nevertheless treated in view of his urgency prior to cystoscopy and the imaging findings suggestive of emphysematous cystitis . Remains afebrile but with persistent leukocytosis, likely secondary to high-dose steroid therapy on day 4 of IV cefazolin. Most recent BCx (10/26/16) also growing gram positive cocci in one set. * Transfer to [facility] for explantation of the pacemaker. Per cardiology, patient will likely need a temporary device afterwards given very long pauses prior to pacemaker insertion. * Continue cefazolin 1 g IV Q8H. * Repeat BCx x2. * Patient will require SU, urology follow-up and further evaluation of the left thigh for possible infection after transfer. #Supratherapeutic INR: INR 2.12 today after receiving 5 mg of SQ vitamin K. * Continue to hold warfarin in anticipation for pacemaker explantation. #Atrial fibrillation: * Continue telemetry. * Continue [id number] metoprolol 50 mg PO BID. #Hyperkalemia: K improved to 5.1 today. Likely secondary to underlying CKD. * Continue to monitor K. #Chronic venous ulcers: Healing with no evidence of infection. * Management per wound care team. * Clean and cover with Xeroform daily. 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 #Pressure ulcers: Clean stage III pressure ulcer measuring approximately 2 x 1 cm on left buttock and stage III pressure ulcer measuring approximately 1.3 x 0.7 cm with red and yellow fill without erythema or exposed bone. Pressure ulcers present on admission. * Management per wound care team. * Place patient on a low air loss mattress. * Pressure ulcers of the coccyx to be examined by wound care once adequate pain control is achieved. #Non-insulin dependent T2DM: Takes Januvia 50 mg PO daily. * Hold oral hypoglycemic agents while inpatient.. * Accu-checks and sliding scale Novolin Q6H while NPO. #HFrEF: ECHO this admission with LVEF estimated at 40-45%. * Continue ovaae-aa-sqhcsmakk Lasix 40 mg PO daily. * Monitor I/Os and daily weights. Diet: NPO DVT PPx: Warfarin and ALPs CODE: FULL Problem List: 1. Pacemaker infection 2. Stage III pressure ulcer of buttock 3. Olecranon bursitis, right elbow 4. Emphysematous cystitis 5. Staphylococcus aureus sepsis 6. Non-insulin dependent type 2 diabetes mellitus 7. Venous stasis ulcers of both lower extremities 8. BPH (benign prostatic hyperplasia) 9. Pressure ulcer of coccygeal region 10. Hyperkalemia 11. Glomerulonephritis 12. Atrial fibrillation 13. HFrEF (heart failure with reduced ejection fraction) Pain Ratin Pain Location: N/A Pain Goal: Remain pain free Pain Plan: Dilaudid 0.2 mg IV Q4H PRN for severe pain (scale 7-10) Tramadol 50 mg PO Q8H PRN for moderate pain (scale 4-6) Tylenol 650 mg PO Q6H PRN for mild pain (scale 1-3) Tomorrow's Labs & Rationales: None Discharge Plan Discharge Disposition: transfer to another hosp ([facility]) Anticipated Discharge (Day): today
[2016-10-28 07:48] LABS: ABSOLUTE BASOPHIL COUNT 0 /CUMM (0.0-0.2); ABSOLUTE EOSINOPHIL COUNT 0 /CUMM (0.0-0.7); ABSOLUTE GRANULOCYTE CT 16.9 /CUMM (1.4-6.5); ABSOLUTE LYMPH COUNT 0.8 /CUMM (1.2-3.4); ABSOLUTE MONOCYTE COUNT 0.6 /CUMM (0.10-0.60); BASOPHIL % 0.1 % (0.0-2.0); EOSINOPHIL % 0.1 % (0-5); HEMATOCRIT 27.4 % (42-52); MEAN CORPUSCULAR HGB 28.2 PG (27.0-31.0); MEAN CORPUSCULAR HGB CONC 33.3 G/DL (33.0-37.0); MEAN CORPUSCULAR VOLUME 84.6 FL (80.0-94.0); PLATELET COUNT 93 /CUMM (130-400); RBC DISTRIBUTION WIDTH 16.9 % (11.5-14.5); RED BLOOD CELL CT 3.24 /CUMM (4.70-6.10); WHITE BLOOD CELL COUNT 18.4 /CUMM (4.8-10.8)
[2016-10-28 08:23] VITALS: BP 120/58
[2016-10-28 08:25] LABS: PT 22.1 SEC (9.4-12.5)
--- NOTE | 2016-10-28 09:33 | Discharge Summary ---
Visit Information Visit Dates Admission Date: 10/24/16 Discharge Date: Hospital Course Course Attending Physician: ADAN FENTON MD Primary Care Physician: ADAN FENTON MD Hospital Course: Mr. 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 Patient had cystoscopy on 10/20 for hematuria, after the procedure he had constant left leg and groin pain that's 10/10 pressure in nature, patient reported dysuria for 2 days after the procedure, denied any abdominal pain, abdominal tenderness, change in bowel habits, nausea, vomiting, fever or chills. Patient denied any chest pain, palpitation, shortness of breath. Vitals temperature 97.2, pulse 90, blood pressure 131/88, respiratory rate 16 with saturation 99% Physical Exam General Appearance Alert, Oriented X3, Cooperative, No Acute Distress Skin No Rashes, No Breakdown, No Significant Lesion Skin Temp/Moisture Exam: Warm/Dry HEENT Atraumatic, PERRLA, EOMI, Very dry mucous memebrane Neck Supple, No JVD Lymphatic no lymphadenopathy Cardiovascular Normal S1, Normal S2, No Murmurs, irrigular Lungs Clear to Auscultation, Normal Air Movement Abdomen Normal Bowel Sounds, Soft, mild tenderness lower abdomen On admission Labs leukocytosis is 19.3, platelets 72, H&H 9.9/29.3, sodium 129, potassium 6.2 ,, carbon dioxide 20, anion gap 9, BUN/creatinine 45/1.6, alkaline phosphatase 1 :30, albumin 2, calcium 8.1, troponin 0.06, INR 2.76, UA positive Image CT pelvis and left hip without IV contrast IMPRESSION: 1. In comparison to a prior CT of the abdomen and pelvis dated 08/28/2016, there has been interval development of extensive emphysema within the bladder wall. Extraluminal air is also visualized within the lower abdomen as well as within the pelvis, anterior and superior to the bladder. Differential diagnostic considerations include but are not limited to emphysematous cystitis. If the patient has had recent attempt at a Rivera catheter placement, this finding may be iatrogenic in etiology, although this latter differential is less favored given lack of spillage of urine from the urinary bladder into the central pelvis. 2. Demineralization of the visualized bones without acute fracture or dislocation of the pelvis or left hip. There are mild degenerative changes involving the bilateral hip joints. 3. Extensive sigmoid colonic diverticulosis, without secondary signs of acute diverticulitis. 4. A moderate amount of retained stool within the colon. 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 Per urology consultation patient never completed his antibiotic therapy in outpatient setting. According to urology Extensive emphysema within the bladder wall. Free air within the lower abdomen is due to a combination of recent cystoscopy and untreated UTI. Patient is on high-dose prednisone 60 mg daily and he has persistence leukocytosis. However his blood culture on 2 different days developed MSSA, per infectious diseases consultation ultrasound of the pacemaker packet was done which showed fluid collection and by IR procedure the fluid collection drainage showed pus. cetriaxone was changed to IV cefazolin per ID commendation.The patient will require pacemaker explantation but will likely need a temporary device after the explantation as he had previously had very long pauses prior to pacemaker insertion. The plan is to transfer the patient to [place].he will likely need to undergo transesophageal echocardiogram after transfer. All of the images done in this hospitalization is being sent by CD. patient was NPO since 10/28/2016 morning #UTI status cystoscopy Patient still have free air in the abdomen and bladder. This should be evaluated later by urology consultation with close follow-up. #backpain/left hip thigh pain the left hip/thigh, with the recent MRI revealing extensive edema in the musculature of the left femur, with no drainable fluid collection. Patient lumbar MRI was not done during the hospitalization but did need be done to rule out infectious.patient Will need further orthopedic evaluation of his left hip for possible septic arthritis. #Hyperkalemia/Hyponatremia Electrolyte abnormalities was repleted by oral and IV medications. #Supratherapeutic INR/AFIB Initially patient INR was more than 3. We hold Coumadin and on the last safety due to patient 5 mg subcutaneous vitamin K to reduce the INR, for anticipation up in the patient on IV heparin for pacemaker removal procedure.last was more than 2. #Right elbow olecranon bursitis No drainable fluid collection identified by orthopedic surgery. If elbow fluid reaccumulates, contact orthopedic surgery for drainage. we Continued bilateral elbow pads. 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 #Pressure ulcers/Chronic venous ulcers: Clean stage III pressure ulcer measuring approximately 2 x 1 cm on left buttock and stage III pressure ulcer measuring approximately 1.3 x 0.7 cm with red and yellow fill without erythema or exposed bone. Pressure ulcers present on admission. Management per wound care team.Place patient on a low air loss mattress.clemente ulcers can be cleaned well and covered with Xeroform daily #Non-insulin dependent T2DM: Takes Januvia 50 mg PO daily. * Accu-checks and low-dose sliding scale Novolog TIDAC. #HFrEF: ECHO this admission with LVEF estimated at 40-45%. We Continued daily Lasix. Allergies: Coded Allergies: No Known Allergies (09/10/16) Significant Procedures: PATIENT: AMELIA VALVERDE PRESENT AGE: 71 PATIENT ACCOUNT NO: [id number] : 44 LOCATION: [facility] ORDERING PHYSICIAN: DINESH LUEVANO MD SERVICE DATE: 10/27/16 EXAM TYPE: US - US-GUIDANCE PROCEDURE: US GUIDANCE DIAGNOSTIC ASPIRATION CLINICAL INFORMATION: 71-year-old patient with blood cultures positive for staph aureus. Ultrasound performed earlier today showing a small fluid collection around the patient's left pectoral pacemaker which was placed proximally 6 weeks ago. COMPARISON: Ultrasound soft tissues of the left chest performed earlier this morning which demonstrated a 2.9 x 0.8 x 0.8 cm ovoid complex fluid collection adjacent to the patient's pacemaker lead. AIR TOOL OPERATOR: Denilson Cortez M.D. DESCRIPTION: Informed consent was obtained from the patient prior to the procedure. During this process, the procedure and potential alternatives was explained, along with the intended outcome and benefits. The risks of the procedure, as well as the risk of not doing the procedure, were discussed. The patient was given the opportunity to ask questions regarding the procedure and appeared competent to make medical decisions. A signed consent form which documents this discussion was placed in the medical record. Review was made of the patient's prior left chest ultrasound. The patient was brought to the ultrasound suite and a final timeout procedure was performed. The previously described fluid collection was identified which was located somewhat posterior to the pacemaker. The overlying soft tissues were sterilely prepped and draped. Maximum sterile barrier technique was maintained throughout the procedure. Local anesthesia was administered using 1% lidocaine. Under direct sonographic visualization, a Yueh needle was introduced into the collection under continuous sonographic visualization. Approximately 6 mL of purulent blood tinged fluid was aspirated. A specimen was sent for culture and sensitivity. No significant residual fluid was identified following the aspiration. IMPRESSION: Purulent material aspirated posterior pocket of the patient's left pectoral pacemaker under ultrasound guidance. Specimen was sent to microbiology for Gram stain, culture, and metabolic sensitivity. DICTATED BY: EMILIANO CORTEZ MD DATE/TIME DICTATED:10/27/161933 STAPLING MACHINE OPERATOR:SUDHIR DATE/TIME TRANSCRIBED:10/27/161933 CONFIDENTIAL, DO NOT COPY WITHOUT APPROPRIATE AUTHORIZATION. <Electronically signed in Other Vendor System> SIGNED BY: EMILIANO CORTEZ MD 10/27/161944 Pertinent Lab Results: Laboratory Tests 10/28/16 0628: Anion Gap 7, Estimated GFR 46 L, BUN/Creatinine Ratio 28.0 H, PT 22.1 H, INR 2.12 H, CBC w Diff NO MAN DIFF REQ, RBC 3.24 L, MCV 84.6, MCH 28.2, RDW 16.9 H, MPV 8.0, Gran % 92.0 H, Lymphocytes % 4.5 L, Monocytes % 3.3, Eosinophils % 0.1, Basophils % 0.1, Absolute Granulocytes 16.9 H, Absolute Lymphocytes 0.8 L , Absolute Monocytes 0.6, Absolute Eosinophils 0, Absolute Basophils 0, PUBS MCHC 33.3 10/27/16 0530: Anion Gap 6, Estimated GFR 50 L, BUN/Creatinine Ratio 27.9 H, PT 30.4 H, INR 2.93 H, CBC w Diff NO MAN DIFF REQ, RBC 3.07 L, MCV 84.2, MCH 28.3, RDW 16.8 H, MPV 8.3, Gran % 93.9 H, Lymphocytes % 3.8 L, Monocytes % 2.2, Eosinophils % 0.1, Basophils % 0 L, Absolute Granulocytes 17.0 H, Absolute Lymphocytes 0.7 L, Absolute Monocytes 0.4, Absolute Eosinophils 0, Absolute Basophils 0, PUBS MCHC 33.6 10/26/16 0620: Anion Gap 9, Estimated GFR 40 L, BUN/Creatinine Ratio 22.9, Total Bilirubin 0.5 , Direct Bilirubin 0.3, AST 19, ALT 47, Alkaline Phosphatase 119, Total Protein 4.9 L, Albumin 2.0 L, PT 38.0 H, INR 3.67 H, CBC w Diff MAN DIFF ORDERED, RBC 3.61 L, MCV 84.3, MCH 28.3, RDW 16.6 H, MPV 8.1, Gran % 88.9 H, Lymphocytes % 5.4 L, Monocytes % 5.1, Eosinophils % 0.4, Basophils % 0.2, Absolute Granulocytes 14.2 H, Segmented Neutrophils 82 H, Band Neutrophils 2, Absolute Lymphocytes 0.9 L, Lymphocytes 5 L, Monocytes 9, Absolute Monocytes 0.8 H, Absolute Eosinophils 0.1, Absolute Basophils 0, Metamyelocytes 1, Myelocytes 1 H, Platelet Estimate DECREASED, Hypochromic-Microcytic 1+, Poikilocytosis 2+, Anisocytosis 1+, PUBS MCHC 33.5 10/25/16 1812: Microbiology 10/28 1145 BLOOD: Blood Culture - RECD 10/28 1140 BLOOD: Blood Culture - RECD 10/27 1627 BODY FLUID: Body Fluid Culture - RES 10/27 1627 BODY FLUID: Gram Stain - RES 10/26 2030 BLOOD: Blood Culture - RES GRAM POSITIVE COCCI 10/26 1808 BLOOD: Blood Culture - RES 10/25 1904 BLOOD: Blood Culture - COMP STAPH AUREUS 10/25 181 BLOOD: Blood Culture - COMP STAPH AUREUS Laboratory Tests 10/28 10/27 0628 0530 Chemistry Sodium (137 - 145 mmol/L) 133 L 131 L Potassium (3.5 - 5.1 mmol/L) 5.1 5.4 H Chloride (98 - 107 mmol/L) 103 103 Carbon Dioxide (22 - 30 mmol/L) 23 22 Anion Gap (5 - 16) 7 6 BUN (9 - 20 mg/dL) 42 H 39 H Creatinine (0.7 - 1.2 mg/dL) 1.5 H 1.4 H Estimated GFR (>60 ml/min) 46 L 50 L BUN/Creatinine Ratio (7 - 25 %) 28.0 H 27.9 H Coagulation PT (9.4 - 12.5 SEC) 22.1 H 30.4 H INR (0.90 - 1.17) 2.12 H 2.93 H Hematology CBC w Diff NO MAN DIFF REQ NO MAN DIFF REQ WBC (4.8 - 10.8 /CUMM) 18.4 H 18.1 H RBC (4.70 - 6.10 /CUMM) 3.24 L 3.07 L Hgb (14.0 - 18.0 G/DL) 9.1 L 8.7 L Hct (42 - 52 %) 27.4 L 25.8 L MCV (80.0 - 94.0 FL) 84.6 84.2 MCH (27.0 - 31.0 PG) 28.2 28.3 RDW (11.5 - 14.5 %) 16.9 H 16.8 H Plt Count (130 - 400 /CUMM) 93 L 66 L MPV (7.4 - 10.4 FL) 8.0 8.3 Gran % (42.2 - 75.2 %) 92.0 H 93.9 H Lymphocytes % (20.5 - 51.1 %) 4.5 L 3.8 L Monocytes % (1.7 - 9.3 %) 3.3 2.2 Eosinophils % (0 - 5 %) 0.1 0.1 Basophils % (0.0 - 2.0 %) 0.1 0 L Absolute Granulocytes (1.4 - 6.5 /CUMM) 16.9 H 17.0 H Absolute Lymphocytes (1.2 - 3.4 /CUMM) 0.8 L 0.7 L Absolute Monocytes (0.10 - 0.60 /CUMM) 0.6 0.4 Absolute Eosinophils (0.0 - 0.7 /CUMM) 0 0 Absolute Basophils (0.0 - 0.2 /CUMM) 0 0 PUBS MCHC (33.0 - 37.0 G/DL) 33.3 33.6 05/03 05/02 0620 1812 Chemistry Sodium (137 - 145 mmol/L) 136 L Potassium (3.5 - 5.1 mmol/L) 5.3 H 5.1 Chloride (98 - 107 mmol/L) 103 Carbon Dioxide (22 - 30 mmol/L) 23 Anion Gap (5 - 16) 9 BUN (9 - 20 mg/dL) 39 H Creatinine (0.7 - 1.2 mg/dL) 1.7 H Estimated GFR (>60 ml/min) 40 L BUN/Creatinine Ratio (7 - 25 %) 22.9 Total Bilirubin (0.2 - 1.3 mg/dL) 0.5 Direct Bilirubin (< 0.4 mg/dL) 0.3 AST (17 - 59 U/L) 19 ALT (21 - 72 U/L) 47 Alkaline Phosphatase (< 127 U/L) 119 Total Protein (6.3 - 8.2 g/dL) 4.9 L Albumin (3.5 - 5.0 g/dL) 2.0 L Coagulation PT (9.4 - 12.5 SEC) 38.0 H INR (0.90 - 1.17) 3.67 H Hematology CBC w Diff MAN DIFF ORDERED WBC (4.8 - 10.8 /CUMM) 16.0 H RBC (4.70 - 6.10 /CUMM) 3.61 L Hgb (14.0 - 18.0 G/DL) 10.2 L Hct (42 - 52 %) 30.5 L MCV (80.0 - 94.0 FL) 84.3 MCH (27.0 - 31.0 PG) 28.3 RDW (11.5 - 14.5 %) 16.6 H Plt Count (130 - 400 /CUMM) 73 L MPV (7.4 - 10.4 FL) 8.1 Gran % (42.2 - 75.2 %) 88.9 H Lymphocytes % (20.5 - 51.1 %) 5.4 L Monocytes % (1.7 - 9.3 %) 5.1 Eosinophils % (0 - 5 %) 0.4 Basophils % (0.0 - 2.0 %) 0.2 Absolute Granulocytes (1.4 - 6.5 /CUMM) 14.2 H Segmented Neutrophils (42.2 - 75.2 %) 82 H Band Neutrophils (0.0 - 5.0 %) 2 Absolute Lymphocytes (1.2 - 3.4 /CUMM) 0.9 L Lymphocytes (20.5 - 51.1 %) 5 L Monocytes (1.7 - 9.3 %) 9 Absolute Monocytes (0.10 - 0.60 /CUMM) 0.8 H Absolute Eosinophils (0.0 - 0.7 /CUMM) 0.1 Absolute Basophils (0.0 - 0.2 /CUMM) 0 Metamyelocytes (0.0 - 1.0 %) 1 Myelocytes (0 - 0 %) 1 H Platelet Estimate (ADEQUATE) DECREASED Hypochromic-Microcytic 1+ Poikilocytosis 2+ Anisocytosis 1+ PUBS MCHC (33.0 - 37.0 G/DL) 33.5 PATIENT: AMELIA VALVERDE PRESENT AGE: 71 PATIENT ACCOUNT NO: [id number] : 44 LOCATION: [facility] ORDERING PHYSICIAN: DINESH LUEVANO MD SERVICE DATE: 10/26/16 EXAM TYPE: CARD - ECHOCARDIOGRAM AMELIA VALVERDE Age: 71 : 1945 Gender: M Exam Date: 10/26/2016 19:45 Exam Location: 1 [place] Ht (in): 70 Wt (lb): 204 BSA: 2.16 BP: 120 / 70 Ordering Physician: DINESH LUEVANO MD Referring Physician: Jaylan Amezcua MD Technologist: Mariella Iniguez RDCS Room Number: 181 Indications: INFECTIVE ENDOCARDITIS Rhythm: Technical Quality: FINDINGS Left Ventricle Left ventricle not well visualized. Left ventricular wall thickness mildly increased. Mildly abnormal left ventricular ejection fraction estimated at 40-45%. Hypokinetic inferior wall. Right Ventricle Normal right ventricular size and function. Right Atrium Normal right atrial size. Left Atrium Moderate left atrial dilatation. Mitral Valve Mild mitral annular calcification. Mild mitral regurgitation. Aortic Valve Aortic valve not well visualized, grossly normal. Diffuse thickening (sclerosis) of the aortic valve cusps without reduced excursion. Mild aortic regurgitation. Tricuspid Valve Tricuspid valve is normal in structure and function. Mild tricuspid regurgitation. Right ventricular systolic pressure estimated to be at upper limits of normal at 36 mmHg. Pulmonic Valve Pulmonic valve not well visualized, grossly normal. Pericardium No pericardial effusion. Great Vessels Normal size aortic root. CONCLUSIONS Poor Echo window. Mildly reduced left ventricular systolic function with mild concentric hypertrophy.No definite vegetations noted but overall study suboptimal. Jaylan Amezcua M.D. (Electronically Signed) Final Date: 26 Oct 2016 21:24 MEASUREMENTS (Male / Female) Normal Values 2D ECHO LV Diastolic Diameter PLAX 5.0 cm 4.2 - 5.9 / 3.9 - 5.3 cm LV Systolic Diameter PLAX 3.9 cm 2.1 - 4.0 cm LV Fractional Shortening PLAX 22.0 % 25 - 46 % LV Ejection Fraction 2D Teich 44.3 % IVS Diastolic Thickness 1.4 cm LVPW Diastolic Thickness 1.3 cm LV Relative Wall Thickness 0.5 RV Internal Dim ED PLAX 3.6 cm 1.9 - 3.8 cm LVOT Diameter 2.5 cm Aortic Root Diameter 3.9 cm LA Systolic Diameter LX 4.7 cm 3.0 - 4.0 / 2.7 - 3.8 cm LV Diastolic Length 4C 7.9 cm 6.9 - 10.3 cm LV Diastolic Area 4C 30.2 cm LV Diastolic Volume MOD 4C 95.0 cm LV Ejection Fraction MOD 4C 34.7 % LV Stroke Volume MOD 4C 33.0 cm LV Systolic Length 4C 7.8 cm LV Systolic Area 4C 24.1 cm LV Systolic Volume MOD 4C 62.0 cm LV Diastolic Volume 4C AL 97.6 cm 85 - 139 / 69 - 109 cm LV Systolic Volume 4C AL 63.2 cm LV Ejection Fraction 4C AL 35.3 % LV Stroke Volume 4C AL 34.4 cm LA Volume 102.0 cm 18 - 58 / 22 - 52 cm Ascending Aorta Diameter 3.2 cm DOPPLER LVOT Peak Velocity 88.7 cm/s LVOT Peak Gradient 3.1 mmHg LVOT Mean Velocity 63.0 cm/s LVOT Mean Gradient 2.0 mmHg LVOT Velocity Time Integral 15.8 cm LVOT Stroke Volume 77.6 cm MV Peak Velocity 113.0 cm/s MV Peak Gradient 5.1 mmHg MV Mean Velocity 67.5 cm/s MV Mean Gradient 2.0 mmHg Mitral E Point Velocity 114.0 cm/s MV PHT Velocity 116.0 cm/s MV Deceleration [place] 337.0 cm/s MV Pressure Half Time 103.3 ms MV Area PHT 2.1 cm MV Deceleration Time 201.0 ms TR Peak Velocity 255.0 cm/s TR Peak Gradient 26.0 mmHg Right Atrial Pressure 10.0 mmHg Pulmonary Artery Systolic Pressu 36.0 mmHg Right Ventricular Systolic Press 36.0 mmHg PV Peak Velocity 112.0 cm/s PV Peak Gradient 5.0 mmHg PV Mean Velocity 70.0 cm/s PV Mean Gradient 2.0 mmHg PV Velocity Time Integral 15.8 cm LV E' Lateral Velocity 4.7 cm/s Mitral E to LV E' Lateral Ratio 24.4 LV E' Septal Velocity 3.9 cm/s Mitral E to LV E' Septal Ratio 29.2 DICTATED BY: JAYLAN AMEZCUA MD DATE/TIME DICTATED:10/26/162123 STAPLING MACHINE OPERATOR:SUDHIR DATE/TIME TRANSCRIBED:10/26/162123 CONFIDENTIAL, DO NOT COPY WITHOUT APPROPRIATE AUTHORIZATION. <Electronically signed in Other Vendor System> SIGNED BY: JAYLAN AMEZCUA MD 10/26/162123 PATIENT: AMELIA VALVERDE PRESENT AGE: 71 PATIENT ACCOUNT NO: [id number] : 44 LOCATION: [facility] ORDERING PHYSICIAN: DINESH LUEVANO MD SERVICE DATE: 10/27/16 EXAM TYPE: MRI - MRI-PELVIS WITHOUT NANCY EXAMINATION: MR PELVIS WITHOUT CONTRAST CLINICAL INFORMATION: Left hip/groin/thigh pain and positive blood cultures. Patient has MRI condition of pacer. Evaluate for signs of infection in the pelvis. COMPARISON: CT scan of the pelvis dated 10/24/2016. TECHNIQUE: MRI scan of the pelvis was performed using multiple imaging sequences and imaging planes. Only limited images of the pelvis could be obtained as the study was prematurely discontinued as per patient's request. Technologist states that patient deferred additional imaging due to severe leg pain. The patient has been advised of pacer. As per departmental protocol, all procedures were followed for clearance of the device and during the performance of the MRI scan. FINDINGS: Bladder: As seen on the previous CT scan, the bladder is markedly abnormal with multiple locules of air seen within the bladder wall. The bladder is only partially distended and a Rivera catheter is seen in its lumen. No definite bladder mass is appreciated on these limited sequences. There is prominent free air again seen surrounding the bladder in the pelvis, minimally decreased in volume compared to the prior exam. No definite the urine extravasation is noted. Prostate gland and seminal vesicles: Prostate gland is enlarged and heterogeneous and suboptimally assessed. Seminal vesicles bilaterally are symmetric. Bowel loops: There is marked to underdistention of the rectum, which is filled with fecal material, similar to the previous CT scan. Moderate sigmoid colonic and distal descending colonic diverticulosis is seen with no evidence of acute diverticulitis. Included small and large bowel loops are otherwise unremarkable. There is a small umbilical hernia, incompletely imaged. Lymphovascular structures: Unremarkable. No pelvic adenopathy is seen. Musculoskeletal structures: There is a small amount of anasarca in the soft tissues. On the T2-weighted sequences obtained, inhomogeneous fat saturation is present, leading to artifactual appearance of increased T2 bright signal/edema in the muscles about the pelvis. When reviewing the T1 weighted sequences, no abnormal enlargement or edema off the musculature is seen. The fat planes between the muscle groups and within the muscle bundles are all well preserved. There is atrophy of the gluteus muscles and several of the muscles of the thigh. No definite focal soft tissue collection or mass is seen. Small amount of presacral edema is present. Bony structures are grossly unremarkable. IMPRESSION: 1. Limited and incomplete exam. 2. Pneumatosis of the bladder wall and prominent free air within the pelvis are again seen, minimally decreased compared to prior exam. Findings may be related to iatrogenic injury versus emphysematous cystitis. Close clinical correlation is requested. 3. Moderate colonic diverticulosis. No evidence of acute diverticulitis. No intrapelvic abscess collection seen. 4. Anasarca in the soft tissues of the pelvis. DICTATED BY: ZACKARY STANLEY MD DATE/TIME DICTATED:10/27/161322 STAPLING MACHINE OPERATOR:SUDHIR DATE/TIME TRANSCRIBED:10/27/161322 CONFIDENTIAL, DO NOT COPY WITHOUT APPROPRIATE AUTHORIZATION. <Electronically signed in Other Vendor System> SIGNED BY: ZACKARY STANLEY MD [id number] Disposition Summary Disposition Principal Diagnosis: MSSA sepsis infected pacemaker CAD, CHF CJD Thrombocytopenia anemia Additional Diagnosis: HSP vasculities? Discharge Disposition: other general hospital Discharge Instructions General Discharge Information Code Status: Full Code Patient's Diet: diabetic/heart healthy Patient's Activity: as tolerated Follow-Up Instructions/Appts: -Please follow-up with your primary care provider within 7 days after discharge. -please follow-up with your sewer bricklayer 7 days after discharge -please follow-up with your urologist 7 days after discharge -Please follow-up with your infectious disease DrDimas 7 days after discharge. -please follow-up with your orthopedic surgeon 7 days after discharge -Please follow-up with your wound center after discharge -We have made changes to your home medications, please read the instructions carefully. -Please come back to the hospital if your symptoms got worse. Medications at Discharge Discharge Medications: Continue taking these medications: Metoprolol Tartrate (Metoprolol Tartrate) 50 MG TABLET 1 Tablet ORAL TWICE DAILY Qty = 180 Comments: Last Taken: 10/28/16 Time: 9:15 AM Multivit-Min/FA/Lycopen/Lutein (Centrum Silver Men Tablet) 300 MCG-600 MCG-300 MCG TABLET 1 Tablet ORAL DAILY Comments: Last Taken: 10/28/16 Time: 09:15 AM THERAGRAN VITAMIN GIVEN Omeprazole (Omeprazole) 20 MG CAPSULE.DR 40 Milligram ORAL DAILY BEFORE BREAKFAST Qty = 30 Comments: Last Taken: 10/28/16 Time: 6:00 AM Prednisone (Prednisone) 20 MG TABLET 60 Milligram ORAL DAILY Qty = 30 Comments: Last Taken: 10/28/16 Time: 9:15 AM Atorvastatin Calcium (Atorvastatin Calcium) 20 MG TABLET 20 Milligram ORAL 5 PM Days = 30 Comments: Last Taken: 10/27/16 Time: 6:00 PM Hydralazine HCl (Hydralazine HCl) 25 MG TABLET 25 Milligram ORAL TWICE DAILY Qty = 30 Comments: Last Taken: 10/28/16 Time: 9:15 AM Isosorbide Mononitrate (Isosorbide Mononitrate ER) 30 MG TAB.ER.24H 30 Milligram ORAL DAILY Qty = 30 Comments: Last Taken: 10/28/16 Time: 9:15 AM Sennosides/Docusate Sodium (Senna S Tablet) 8.6 MG-50 MG TABLET 2 Tablet ORAL Every night Comments: NOT GIVEN IN HOSPITAL Furosemide (Furosemide) 40 MG TABLET 1 Tablet ORAL DAILY Comments: Last Taken: 10/28/16 Time: 9:15 AM Sitagliptin Phosphate (Januvia) 50 MG TABLET 1 Tablet ORAL DAILY Qty = 30 Comments: NOT GIVEN IN HOSPITAL Protein Supplement (Promod) 946 ML LIQUID 30 Milliliters ORAL TWICE DAILY Comments: NOT GIVEN IN HOSPITAL Lactobacillus Acidophilus (Acidophilus) 1 EACH CAPSULE 1 Capsule ORAL TWICE DAILY Comments: NOT GIVEN IN HOSPITAL Warfarin Sodium (Coumadin) 3 MG TABLET 1 Tablet ORAL DAILY Comments: NOT GIVEN IN HOSPITAL Acetaminophen (Acephen) 650 MG SUPP.RECT 1 SUPPOSITORY RECTALLY Q4H as needed for PAIN/TEMP>100 Comments: NOT GIVEN IN HOSPITAL Bisacodyl (Bisacodyl) 10 MG SUPP.RECT 1 Suppository RECTAL as needed for CONSTIPATION Comments: NOT GIVEN IN HOSPITAL Na Phos,M-B/Na Phos,Di-Ba (Fleet Enema) 19 GRAM-7 GRAM/118 ML ENEMA 1 Enema RECTAL DAILY as needed for CONSTIPATION Comments: NOT GIVEN IN HOSPITAL Acetaminophen (Acetaminophen) 325 MG TABLET 2 Tablet ORAL Q4H as needed for PAIN/TEMP>/100 Comments: Last Taken: 10/28/16 Time: 13:00 PM Magnesium Hydroxide (Milk Of Magnesia) 400 MG/5 ML ORAL.SUSP 30 [place] ORAL DAILY as needed for CONSTIPATION Comments: NOT GIVEN IN HOSPITAL Tramadol HCl (Tramadol HCl) 50 MG TABLET 1 Tablet ORAL Q8H as needed for MODERATE TO SEVERE PAIN Comments: Last Taken: 10/26/16 Time: 10:00 AM Start taking the following new medications: Cefazolin Sodium (Cefazolin Sodium) 1 GRAM VIAL 1,000 Milligram INTRAVEN IV EVERY 8 HOURS Days = 28 No Refills Tamsulosin HCl (Tamsulosin HCl) 0.4 MG CAP.ER.24H 1 Capsule ORAL DAILY Qty = 30 No Refills Copies To: RENALDO BAKER,ELAINE Duong; MARIO BAKER,CHRISTIANO Boothe; CHAPITO BAKER,BRETT; KARLA BAKER, JAYESH Rogers; JULIO BAKER,ETHAN Feldman JR
--- NOTE | 2016-10-28 09:37 | PN- Att Addend ---
Attending Addendum Attending Brief Note Patient reports pain left hip. General Appearance: Alert, No Acute Distress Skin: Grossly normal HEENT: PEERLA Neck: Supple, No JVD Cardiovascular: Regular Rate, Normal S1, Normal S2, No Murmurs Lungs: Clear to Auscultation, Normal Air Movement Abdomen: Left thigh tenderness Neurological: Normal Speech, Strength at 5/5 X4 Ext, Cranial Nerves 3-12 NL, Reflexes 2+ Extremities: Pedal edema Assessment 71-year-old with history of atrial fibrillation on Coumadin, HI, status post pacemaker, CHF, hypertension, varicose veins, chronic anemia, history of recent renal failure and venous insufficiency presenting with left groin pain after cystoscopy. 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 Urology considers air in subcutaneous tissue likely post procedure with microperforation of the bladder that does not need any intervention at this time. Kidney function is stable. MSSA currently on cefazolin. MRI left hip suggest edema however there is no drainable collection. Ultrasound pacemaker pocket suggested posterior collection which likely is the source of infection. Discussed with you electrophysiology and they are willing to accept the patient for pacemaker explantation. Will need further orthopedic evaluation of his left hip for possible septic arthritis. Plan Transfer patient to [place] Continue antibiotics Send all imaging with the patient Continue home medication including Lasix Resume low-dose Coumadin Continue other medications upon discharge Current Medications Sig/Dagoberto Start time Last Medication Dose Route Stop Time Status Admin Acetaminophen 650 MG Q6P PRN 10/25 1115 AC 10/27 PO 0932 Atorvastatin Calcium 20 MG 1700 05/02 1700 AC 10/27 PO 1750 Bisacodyl 10 MG ONE TIME PRN 10/26 1600 AC TN Cefazolin Sodium 1,000 MG IQ8 10/26 1600 AC 05 IV 0908 Furosemide 40 MG DAILY 10/25 1000 AC 10/28 PO 0916 Hydralazine HCl 25 MG BID 10/25 1000 AC 10/28 PO 0915 Hydromorphone HCl 0.2 MG Q4P PRN 10/26 0800 AC 05/ IV 0914 Insulin Aspart 0 TIDAC 05/ 1200 AC 05 SC 1750 Isosorbide 30 MG DAILY / 1000 AC 10/28 Mononitrate PO 0916 Metoprolol Tartrate 50 MG BID / 1000 AC 10/28 PO 0917 Multivitamins 1 TAB DAILY 10/25 1000 AC 10/28 PO 0917 Omeprazole 40 MG DAILY AC 10/25 0810 AC 10/28 PO 0549 Patient Medication 1 ED .STK-MED ONE 10/27 1355 DC Teaching ED 10/27 1356 Phytonadione 5 MG ONE ONE 10/27 1730 DC ID 10/27 1731 Prednisone 60 MG DAILY 10/26 1540 AC 10/28 PO 0917 Tamsulosin HCl 0.4 MG DAILY 10/27 1045 AC 10/28 PO 0916 Tramadol HCl 50 MG Q8P PRN 10/25 1115 AC 10/26 PO 0958 Warfarin Sodium 1 MG COUMADIN 1700 ONE 10/27 1700 CAN PO 10/27 1701 Laboratory Tests 10/29 627 Chemistry Sodium (137 - 145 mmol/L) 133 L Potassium (3.5 - 5.1 mmol/L) 5.1 Chloride (98 - 107 mmol/L) 103 Carbon Dioxide (22 - 30 mmol/L) 23 Anion Gap (5 - 16) 7 BUN (9 - 20 mg/dL) 42 H Creatinine (0.7 - 1.2 mg/dL) 1.5 H Estimated GFR (>60 ml/min) 46 L BUN/Creatinine Ratio (7 - 25 %) 28.0 H Coagulation PT (9.4 - 12.5 SEC) 22.1 H INR (0.90 - 1.17) 2.12 H Hematology CBC w Diff NO MAN DIFF REQ WBC (4.8 - 10.8 /CUMM) 18.4 H RBC (4.70 - 6.10 /CUMM) 3.24 L Hgb (14.0 - 18.0 G/DL) 9.1 L Hct (42 - 52 %) 27.4 L MCV (80.0 - 94.0 FL) 84.6 MCH (27.0 - 31.0 PG) 28.2 RDW (11.5 - 14.5 %) 16.9 H Plt Count (130 - 400 /CUMM) 93 L MPV (7.4 - 10.4 FL) 8.0 Gran % (42.2 - 75.2 %) 92.0 H Lymphocytes % (20.5 - 51.1 %) 4.5 L Monocytes % (1.7 - 9.3 %) 3.3 Eosinophils % (0 - 5 %) 0.1 Basophils % (0.0 - 2.0 %) 0.1 Absolute Granulocytes (1.4 - 6.5 /CUMM) 16.9 H Absolute Lymphocytes (1.2 - 3.4 /CUMM) 0.8 L Absolute Monocytes (0.10 - 0.60 /CUMM) 0.6 Absolute Eosinophils (0.0 - 0.7 /CUMM) 0 Absolute Basophils (0.0 - 0.2 /CUMM) 0 PUBS MCHC (33.0 - 37.0 G/DL) 33.3 Vital Signs Date Time Temp Pulse Resp B/P B/P Pulse O2 O2 Flow FiO2 Mean Ox Delivery Rate 10/28 0917 91 10/28 0916 91 11210/28 0916 91 112/10/28 0915 91 112 05 0823 97.6 99 16 120/58 97 Room Air 10/27 2213 97.9 84 18 126/68 97 Room Air 10/27 2137 96 126/64 0504 1750 110/66 05/04 1540 97.6 93 18 110/66 97 05/04 1422 Room Air
--- NOTE | 2016-10-28 10:40 | PN- Infect Dx ---
Subjective Subjective: Afebrile. He offers no complaint at this time. Objective Last 24 Hrs of Vital Signs/I&O Vital Signs Date Time Temp Pulse Resp B/P B/P Pulse O2 O2 Flow FiO2 Mean Ox Delivery Rate 10/28 916 91 112/70 10/28 0916 91 10/28 0916 91 11210/28 0915 91 11210/28 0823 97.6 99 16 120/58 97 Room Air 10/27 2213 97.9 84 18 126/68 97 Room Air 10/27 2137 96 126/64 10/27 1750 110/66 10/27 1540 97.6 93 18 110/66 97 10/27 1422 Room Air Intake & Output 10/28 1600 10/28 0800 10/28 0000 Intake Total 300 Output Total 1000 Balance -700 Intake, Oral 300 Output, Urine 1000 Physical Exam Other Physical Findings: He appears comfortable in no acute distress Chest pacemaker site in the left upper chest ecchymotic with no erythema or tenderness Lungs are clear Heart regular rhythm with no murmur Extremities left thigh edema, mildly tender on palpation Rivera catheter remains in place Results Last 24 Hours of Lab Results: Laboratory Tests 10/29 627 Chemistry Sodium (137 - 145 mmol/L) 133 L Potassium (3.5 - 5.1 mmol/L) 5.1 Chloride (98 - 107 mmol/L) 103 Carbon Dioxide (22 - 30 mmol/L) 23 Anion Gap (5 - 16) 7 BUN (9 - 20 mg/dL) 42 H Creatinine (0.7 - 1.2 mg/dL) 1.5 H Estimated GFR (>60 ml/min) 46 L BUN/Creatinine Ratio (7 - 25 %) 28.0 H Coagulation PT (9.4 - 12.5 SEC) 22.1 H INR (0.90 - 1.17) 2.12 H Hematology CBC w Diff NO MAN DIFF REQ WBC (4.8 - 10.8 /CUMM) 18.4 H RBC (4.70 - 6.10 /CUMM) 3.24 L Hgb (14.0 - 18.0 G/DL) 9.1 L Hct (42 - 52 %) 27.4 L MCV (80.0 - 94.0 FL) 84.6 MCH (27.0 - 31.0 PG) 28.2 RDW (11.5 - 14.5 %) 16.9 H Plt Count (130 - 400 /CUMM) 93 L MPV (7.4 - 10.4 FL) 8.0 Gran % (42.2 - 75.2 %) 92.0 H Lymphocytes % (20.5 - 51.1 %) 4.5 L Monocytes % (1.7 - 9.3 %) 3.3 Eosinophils % (0 - 5 %) 0.1 Basophils % (0.0 - 2.0 %) 0.1 Absolute Granulocytes (1.4 - 6.5 /CUMM) 16.9 H Absolute Lymphocytes (1.2 - 3.4 /CUMM) 0.8 L Absolute Monocytes (0.10 - 0.60 /CUMM) 0.6 Absolute Eosinophils (0.0 - 0.7 /CUMM) 0 Absolute Basophils (0.0 - 0.2 /CUMM) 0 PUBS MCHC (33.0 - 37.0 G/DL) 33.3 Last 24 Hours of Hemal Results: Blood cultures October 3 one bottle positive for gram-positive cocci Aspiration of the pacemaker pocket fluid October 4 negative after 1 day Assessment/Plan Impression: Staph aureus sepsis on Cefazolin Day 4 of treatment status post aspiration of pus from the pacemaker pocket, suggesting that this is the most likely source of his sepsis, though it is possible that it represents seeding from another source secondary to the bacteremia. The culture of the aspiration is so far negative, but he was on antibiotics and it is only after 1 day. Have discussed with thoracic surgery, who recommended transfer for explantation of the pacemaker. 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 His previous urine culture, prior to admission, did grow Proteus and, given his symptoms of urgency prior to admission and the CT findings, can continue treatment for a urinary tract infection. His temperatures remain normal and white blood cell count remains elevated, likely secondary to the steroids, which have been continued for his underlying vasculitis. Suggestion: 1. Would transfer to [facility] or [facility] for explantation of the pacemaker 2. Close monitoring of his left thigh for signs of infection 3. Repeat blood cultures 2 today 4. Will likely require SU after transfer 5. Will need Urology follow-up 6. Continue Cefazolin
--- NOTE | 2016-10-28 11:33 | Cons- Cardiology ---
General Information and HPI Consulting Request Date of Consult: 10/28/16 Requested By: ADAN FENTON MD Reason for Consult: Bacteremia with pacemaker Source of Information: patient, old records History of Present Illness: This is a 71-year-old male with a complex past medical history including recent prolonged admission for renal failure with suspicion for HSP, thrombocytopenia, left bundle-branch block with progressive cardiomyopathy with prolonged pauses on telemetry requiring recent single lead permanent pacemaker, NSVT, hemoptysis, coronary artery disease with prior OR, venous insufficiency, atrial fibrillation on anticoagulation with Coumadin, and history of hypertension. He had a previous hospitalization in September for some epistaxis/hemoptysis. He was again admitted to [facility] presently 5 days ago with a chief complaint of the moderate to severe intensity pain in his left leg and groin. Denied associated chest pain, palpitations, shortness of breath, headache, or slurring of speech. Denied recurrent hemoptysis. He recently underwent a cystoscopy for hematuria. He apparently did not take antibiotics following the cystoscopy. He is noted to be bacteremic with recurrently positive blood cultures. He continues to have pain in his leg. He apparently underwent aspiration of a fluid collection from the pacemaker pocket. Allergies/Medications Allergies: Coded Allergies: No Known Allergies (09/10/16) Home Med List: Acetaminophen (Acephen) 650 MG SUPP.RECT 1 SUPP LA Q4H PRN PAIN/TEMP>100 ( Reported) Acetaminophen 325 MG TABLET 2 TAB PO Q4H PRN PAIN/TEMP>/100 (Reported) Atorvastatin Calcium 20 MG TABLET 20 MG PO 1700 CHOLESTEROL Bisacodyl 10 MG SUPP.RECT 1 SUP RC PRN CONSTIPATION (Reported) Furosemide 40 MG TABLET 1 TAB PO DAILY WATER RETENTION (Reported) Hydralazine HCl 25 MG TABLET 25 MG PO BID CARDIOMYOPATHY Isosorbide Mononitrate (Isosorbide Mononitrate ER) 30 MG TAB.ER.24H 30 MG PO DAILY CARDIOMYOPATHY Lactobacillus Acidophilus (Acidophilus) 1 EACH CAPSULE 1 CAP PO BID PROBIOTIC (Reported) Magnesium Hydroxide (Milk Of Magnesia) 400 MG/5 ML ORAL.SUSP 30 ML PO DAILY PRN CONSTIPATION (Reported) Metoprolol Tartrate 50 MG TABLET 1 TAB PO BID AFIB (Reported) Multivit-Min/FA/Lycopen/Lutein (Centrum Silver Men Tablet) 300 MCG-600 MCG-300 MCG TABLET 1 TAB PO DAILY SUPPLEMENT (Reported) Na Phos,M-B/Na Phos,Di-Ba (Fleet Enema) 19 GRAM-7 GRAM/118 ML ENEMA 1 E RC DAILY PRN CONSTIPATION (Reported) Omeprazole 20 MG CAPSULE.DR 40 MG PO DAILY AC GI PROPHYLAXIS Prednisone 20 MG TABLET 60 MG PO DAILY VASCULITIS Protein Supplement (Promod) 946 ML LIQUID 30 ML PO BID SUPPLEMENT (Reported) Sennosides/Docusate Sodium (Senna S Tablet) 8.6 MG-50 MG TABLET 2 TAB PO QPM CONSTIPATION (Reported) Sitagliptin Phosphate (Januvia) 50 MG TABLET 1 TAB PO DAILY diabetes Tramadol HCl 50 MG TABLET 1 TAB PO Q8H PRN MODERATE TO SEVERE PAIN (Reported) Warfarin Sodium (Coumadin) 3 MG TABLET 1 TAB PO DAILY BLOOD THINNER (Reported ) Current Medications: Current Medications Sig/Dagoberto Start time Last Medication Dose Route Stop Time Status Admin Acetaminophen 650 MG Q6P PRN 10/25 1115 AC 10/27 PO 0932 Atorvastatin Calcium 20 MG 1700 10/25 1700 AC 10/27 PO 1750 Bisacodyl 10 MG ONE TIME PRN 10/26 1600 AC LA Cefazolin Sodium 1,000 MG IQ8 10/26 1600 AC 05 IV 0908 Furosemide 40 MG DAILY 10/25 1000 AC 10/28 PO 0916 Hydralazine HCl 25 MG BID 10/25 1000 AC 10/28 PO 0915 Hydromorphone HCl 0.2 MG Q4P PRN 10/26 0800 AC 05 IV 0914 Insulin Aspart 0 TIDAC 05 1200 AC 10/27 SC 1750 Isosorbide 30 MG DAILY 10/25 1000 AC 10/28 Mononitrate PO 0916 Metoprolol Tartrate 50 MG BID 10/25 1000 AC 10/28 PO 0917 Multivitamins 1 TAB DAILY 10/25 1000 AC 10/28 PO 0917 Omeprazole 40 MG DAILY AC 10/25 0810 AC 10/28 PO 0549 Patient Medication 1 ED .STK-MED ONE 10/27 1355 DC Teaching ED 10/27 1356 Phytonadione 5 MG ONE ONE 10/27 1730 [facility] 10/27 1731 Prednisone 60 MG DAILY 10/26 1540 AC 10/28 PO 0917 Tamsulosin HCl 0.4 MG DAILY 10/27 1045 AC 10/28 PO 0916 Tramadol HCl 50 MG Q8P PRN 10/25 1115 AC 10/26 PO 0958 Warfarin Sodium 1 MG COUMADIN 1700 ONE 10/27 1700 CAN PO 10/27 1701 Review of Systems Review of Systems: Review of systems as per HPI. The remainder of a 10 point review of systems was reviewed and was otherwise negative. 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 Acute Rehab Who Do You Live With? child Services at Home: None Primary Language: Croatian Smoking Status: Never Smoked Illicit Drug Use: denies illicit drug use Living Will? 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 IADLs Needs Assist: shopping, housework, finances, food prep, telephone, transportation, medication admin. Exam & Diagnostic Data Vital Signs and I&O Vital Signs Date Time Temp Pulse Resp B/P B/P Pulse O2 O2 Flow FiO2 Mean Ox Delivery Rate 10/28 0917 91 112/70 10/28 0916 91 112/70 10/28 0916 91 112/70 10/28 0915 91 112/70 10/28 0823 97.6 99 16 120/58 97 Room Air 10/27 2213 97.9 84 18 126/68 97 Room Air 10/27 2137 96 126/64 10/27 1750 110/66 10/27 1540 97.6 93 18 110/66 97 10/27 1422 Room Air Intake & Output 10/28 1600 10/28 0800 10/28 0000 10/27 1600 10/27 0800 10/27 0000 Intake Total 300 760 110 420 Output Total 1000 550 800 850 Balance -700 210 -690 -430 Intake, IV 20 Intake, Oral 300 760 110 400 Number 0 Bowel Movements Output, Urine 1000 550 800 850 Physical Exam: General: no apparent distress. Alert. Eyes: No obvious scleral icterus. HEENT: No jugular venous distention. Cardiovascular: Normal intensity S1/S2. Irregular. Left-sided pacemaker. Respiratory: no rales or ronchi Abdomen: no guarding or rebound tenderness. Musculoskeletal: No clubbing or cyanosis noted, no edema, lower extremity wound dressing noted Skin: warm Neurologic: No gross focal deficits noted. Labs/Hemal Results: Laboratory Tests 10/28 10/27 0628 0530 Chemistry Sodium (137 - 145 mmol/L) 133 L 131 L Potassium (3.5 - 5.1 mmol/L) 5.1 5.4 H Chloride (98 - 107 mmol/L) 103 103 Carbon Dioxide (22 - 30 mmol/L) 23 22 Anion Gap (5 - 16) 7 6 BUN (9 - 20 mg/dL) 42 H 39 H Creatinine (0.7 - 1.2 mg/dL) 1.5 H 1.4 H Estimated GFR (>60 ml/min) 46 L 50 L BUN/Creatinine Ratio (7 - 25 %) 28.0 H 27.9 H Coagulation PT (9.4 - 12.5 SEC) 22.1 H 30.4 H INR (0.90 - 1.17) 2.12 H 2.93 H Hematology CBC w Diff NO MAN DIFF REQ NO MAN DIFF REQ WBC (4.8 - 10.8 /CUMM) 18.4 H 18.1 H RBC (4.70 - 6.10 /CUMM) 3.24 L 3.07 L Hgb (14.0 - 18.0 G/DL) 9.1 L 8.7 L Hct (42 - 52 %) 27.4 L 25.8 L MCV (80.0 - 94.0 FL) 84.6 84.2 MCH (27.0 - 31.0 PG) 28.2 28.3 RDW (11.5 - 14.5 %) 16.9 H 16.8 H Plt Count (130 - 400 /CUMM) 93 L 66 L MPV (7.4 - 10.4 FL) 8.0 8.3 Gran % (42.2 - 75.2 %) 92.0 H 93.9 H Lymphocytes % (20.5 - 51.1 %) 4.5 L 3.8 L Monocytes % (1.7 - 9.3 %) 3.3 2.2 Eosinophils % (0 - 5 %) 0.1 0.1 Basophils % (0.0 - 2.0 %) 0.1 0 L Absolute Granulocytes (1.4 - 6.5 /CUMM) 16.9 H 17.0 H Absolute Lymphocytes (1.2 - 3.4 /CUMM) 0.8 L 0.7 L Absolute Monocytes (0.10 - 0.60 /CUMM) 0.6 0.4 Absolute Eosinophils (0.0 - 0.7 /CUMM) 0 0 Absolute Basophils (0.0 - 0.2 /CUMM) 0 0 PUBS MCHC (33.0 - 37.0 G/DL) 33.3 33.6 Diagnostic Data EKG Results Tracing was personally reviewed and shows atrial fibrillation at 97 bpm with intraventricular conduction delay/LBBB Other Results Echocardiogram CONCLUSIONS Poor Echo window. Mildly reduced left ventricular systolic function with mild concentric hypertrophy.No definite vegetations noted but overall study suboptimal. Chest ultrasound IMPRESSION: Complicated fluid collection is seen in the soft tissues lateral to the pacer lead in the left upper chest. This is a nonspecific finding and may represent an infected fluid collection in the clinical setting provided. Differential would also include a complex seroma or possibly liquefied hematoma. Clinical correlation is requested. No significant fluid collection is seen surrounding the generator box. Pelvic MRI IMPRESSION: 1. Limited and incomplete exam. 2. Pneumatosis of the bladder wall and prominent free air within the pelvis are again seen, minimally decreased compared to prior exam. Findings may be related to iatrogenic injury versus emphysematous cystitis. Close clinical correlation is requested. 3. Moderate colonic diverticulosis. No evidence of acute diverticulitis. No intrapelvic abscess collection seen. 4. Anasarca in the soft tissues of the pelvis. Assessment/Plan Assessment/Plan 1. Renal insufficiency with recent suspicion for HSP requiring transient dialysis during prior admission 2. Persistent atrial fibrillation on anticoagulation with Coumadin 3. History of coronary artery disease/prior myocardial infarction with mild to moderate left ventricular dysfunction by previous noninvasive imaging, now with severe LV dysfunction 4. Bacteremia with concern for possible pacemaker infection 5. Anemia; with previous epistaxis/hemoptysis/hematuria 6. Chronic left bundle branch block 7. Hx HTN 8. Venous insufficiency 9. Thrombocytopenia 10. Prolonged pauses, s/p MRI compatible single lead permanent pacemaker 09/09/16 , now with bacteremia and concern for possible pacemaker infection The patient is currently hemodynamically stable despite the bacteremia. There is a significant concern that this may represent pacemaker infection; unclear if the pacemaker is the primary source or may have been seeded by another primary infectious source. The patient will likely require pacemaker explantation but will likely need a temporary device after the explantation as he had previously had very long pauses prior to pacemaker insertion. The plan is to transfer the patient to [place]; agree he will likely need to undergo transesophageal echocardiogram after transfer. Jonh Stanley MD [facility] Consult Acknowledgment - Thank you for your consult request.
[2016-10-28] MEDS ORDERED: CEFAZOLIN SODIUM1 G1 IV (12:17)
[2016-10-28] MEDS ORDERED: TAMSULOSIN HCL0.4 M1 PO (12:19)
[2016-10-28 12:32] VITALS: BP 112/70
--- NOTE | 2016-10-28 12:43 | Patient Discharge Instructions ---
Discharge Instructions Diet Recommended Diet: Diabetic Acute Coronary Syndrome Inclusion Criteria At DC or during hospital stay patient has or had the following: ACS DIAGNOSIS No Discharge Core Measures Meds if any: Prescribed or Continued at Discharge Meds if any: NOT Prescribed or Continued at Discharge Congestive Heart Failure Inclusion Criteria At DC or during hospital stay patient has or had the following: CHF DIAGNOSIS No Discharge Core Measures Meds if any: Prescribed or Continued at Discharge Meds if any: NOT Prescribed or Continued at Discharge Cerebrovascular accident Inclusion Criteria At DC or during hospital stay patient has or had the following: CVA/TIA Diagnosis No Discharge Core Measures Meds if any: Prescribed or Continued at Discharge Meds if any: NOT Prescribed or Continued at Discharge Venous thromboembolism Inclusion Criteria VTE Diagnosis No VTE Type NONE VTE Confirmed by (Test) NONE Discharge Core Measures - Per Current guidelines, there needs to be overlap - treatment for the first 5 days of Warfarin therapy. - If discharged on Warfarin prior to 5 days of - overlap therapy, the patient will need to be - assessed for post discharge needs including - *Post discharge parental anticoagulation - *Warfarin and/or parental anticoagulation education - *Follow up date to check INR post discharge At least 5 days overlap therapy as Inpatient No Meds if any: Prescribed or Continued at Discharge Note: Overlap Therapy is Warfarin and Anticoagulant Meds if any: NOT Prescribed or Continued at Discharge
[2016-10-28 15:59] VITALS: BP 108/64
== END 2016-10-28 20:25 | disposition short-term general hospital (02) | DRG 871 ==
LOC: ERH 19:30 → 1NO 21:37 → ERHI 21:37 → ENRESERV 22:17 → 1NO 22:50
PROVIDERS: Dermatology; Pediatrics; Student in an Organized Health Care Education/Training Program; ADMIT Internal Medicine
PROC: 0J963ZZ Drainage of Chest Subcutaneous Tissue and Fascia, Percutaneous Approach (ICD-10-PCS; principal; 2016-10-27)
DX: A41.01 Sepsis due to Methicillin susceptible Staphylococcus aureus (principal); L89.313 Pressure ulcer of right buttock, stage 3; I13.0 Hypertensive heart and chronic kidney disease with heart failure and stage 1 through stage 4 chronic kidney disease, or unspecified chronic kidney disease; L89.323 Pressure ulcer of left buttock, stage 3; I50.22 Chronic systolic (congestive) heart failure; D69.6 Thrombocytopenia, unspecified; T82.7XXA Infection and inflammatory reaction due to other cardiac and vascular devices, implants and grafts, initial encounter; E87.1 Hypo-osmolality and hyponatremia; N39.0 Urinary tract infection, site not specified; I48.2 Chronic atrial fibrillation; E87.5 Hyperkalemia; I44.7 Left bundle-branch block, unspecified; N18.9 Chronic kidney disease, unspecified; I87.2 Venous insufficiency (chronic) (peripheral); N40.0 Benign prostatic hyperplasia without lower urinary tract symptoms; M70.21 Olecranon bursitis, right elbow; I25.2 Old myocardial infarction; I25.10 Atherosclerotic heart disease of native coronary artery without angina pectoris; Z79.01 Long term (current) use of anticoagulants
CPT/HCPCS: 1NP; 75633; 75651; 87075; 87184; 36415; 73080-RT; 81001; 82436; 87040; 87071; 87086; 87147; 93005; 93010; 93306; 96374; J0690; J0696; J1815; J3370; J7040; J7042